=== PATIENT | male | born 1975 | race Caucasian/White ===

== ENCOUNTER 2020-05-18 22:32 | Emergency (ER) | payer MEDICAID, SELFPAY ==
[2020-05-18 22:41] VITALS: BP 113/68; PULSE 67; RESP 18; TEMP 36.6; O2SAT 98; BMI 25.1
--- NOTE | 2020-05-18 23:31 | ED_ITS ---
HPI - Psych General Chief Complaint: Psychiatric Symptoms Stated Complaint: crisis Time Seen by Provider: 05/18/20 23:28 Source: patient Mode of arrival: ambulatory Limitations: no limitations History of Present Illness HPI Narrative: 45 yo with extensive psychiatric history here with SI and very superficial linear abrasions to bilateral forearms complaint: suicidal ideation and feels depressed Onset (ago): unknown Duration: constant History of same: Yes Relieving factors: none Exacerbating factors: none Context: significant life stressor Associated psychiatric symptoms: depression and suicidal ideation Associated symptoms: denies other symptoms Treatments prior to arrival: none If self harm: self-inflicted trauma (very minor superficial abrasions to both wrists) Related Data Allergies Allergy/AdvReac Type Severity Reaction Status Date / Time nicotine [From NICODERM CQ] Allergy Mild SHORTNESS Verified 05/18/20 22:41 OF BREATH ketchup [KETCHUP] Allergy Unknown RASH Verified 05/18/20 22:41 onion [ONION] Allergy Unknown RASH Verified 05/18/20 22:41 tomato [TOMATO] Allergy Unknown RASH Verified 05/18/20 22:41 Review of Systems Review of Systems: Constitutional : No Fever, No Chills ENT/Mouth : No Ear Pain, No Nasal Congestion, No sore throat Eyes: No Eye Pain, No Swelling, No Redness Cardiovascular : No Chest Pain, No SOB Respiratory : No Cough, No Sputum, No Dyspnea Gastrointestinal : No Nausea, No Vomiting, No Diarrhea, No Hematochezia, No Melena Genitourinary : No Dysuria, No Urinary Frequency, No Hematuria Musculoskeletal : No Myalgias Skin : No Skin Lesions, pos abrasions Neuro : No Weakness, No Numbness, No Paresthesias, No Dizziness, No Headache Psych : positive Anxiety, positive Depression, positive SI no HI Heme/Lymph: No Lymphadenopathy Endocrine : No Polyuria, No Polydipsia All other systems reviewed and are negative [facility] Past Medical History Attestation statement: The following information was validated with the patient. Medical History Bipolar 1 disorder Personality disorder Transgender Social History Social History (Updated 05/18/20 @ 23:42 by Kim Medrano DO) Alcohol intake: former Smoking Status: Current every day smoker Smoked in Last 30 Days: Yes Use of substances other than those prescribed or required for medical reasons: Yes Substance Use Type: Crack/Cocaine Substance Use Frequency: Occasionally Advance Directives: No Physical Exam Vital Signs: Vital Signs: Last Vital Signs Temp 98.0 F 05/19/20 00:14 Pulse 70 05/19/20 00:14 Resp 18 05/19/20 00:14 BP 115/70 05/19/20 00:14 Pulse Ox 98 05/19/20 00:14 Body Mass Index 25.1 Appearance: Alert. Oriented X3. No acute distress. Disheveled unkempt Eyes: Pupils equal, round and reactive to light. ENT: Pharynx normal. Neck: Normal inspection. Neck supple. CVS: Normal heart rate and rhythm. Pulses normal. Respiratory: No respiratory distress. Breath sounds normal. Abdomen: Soft and nontender. Skin: Skin warm and dry. Normal skin color. Normal skin turgor. bilateral anterior wrists very superficial linear abrasions noted Extremities: No lower extremity edema. No calf ttp Neuro: Oriented X 3. No motor deficit. No sensory deficit. CN 2 - 12 intact Psych: withdrawn, flat affect, reports SI. Course Course Course Narrative: cleared by N MDM - Psych MDM Narrative Medical decision making narrative: 45 yo patient with significant mental illness here with SI and very mild abrasions - at this time will obtain labs, N consult, patient is currently calm and cooperative Lab Data Result diagrams: 05/18/20 23:54 05/18/20 23:54 Labs: Lab Results 05/18/20 05/18/20 05/18/20 Range/Units 23:46 23:54 23:54 WBC 16.6 H (4.8-10.8) X10*3/uL RBC 4.86 (4.60-5.80) X10*6/uL Hgb 14.8 (14.0-18.0) g/dl Hct 43.1 (42-52) % MCV 88.7 (80-98) fL MCH 30.5 (27.0-33.0) pg MCHC 34.3 (31.0-36.0) g/dl RDW 12.5 (11.0-16.0) % Plt Count 263 (160-400) X10*3/uL MPV 10.2 (9.4-12.4) fL Immature Gran % (Auto) 0.4 (0.0-0.4) % Neut % (Auto) 65.7 (45-73) % Lymph % (Auto) 23.4 (20-40) % [place] % (Auto) 9.2 (2-11) % Eos % (Auto) 0.8 (0-4) % Baso % (Auto) 0.5 (0-2) % Lymph # (Auto) 3.9 (1.2-4.9) X10*3/uL [place] # (Auto) 1.5 H (0.1-1.2) X10*3/uL Eos # (Auto) 0.1 (0.0-0.4) X10*3/uL Baso # (Auto) 0.1 (0.0-0.2) X10*3/uL Abs Immat Gran (auto) 0.07 H (0.00-0.03) X10*3/uL Absolute Neuts (auto) 10.9 H (2.0-8.3) X10*3/uL Absolute Nucleated RBC 0.000 (0.0-0.012) X10*3/uL Nucleated RBC % (auto) 0.0 (0.0-0.2) /100WBC Smear Tech's Comments VERIFIED Sodium (135-145) mmol/L Potassium (3.3-5.1) mmol/L Chloride (96-108) mmol/L Carbon Dioxide (22-29) mmol/L Anion Gap (12-20) BUN (9-16) mg/dL Creatinine (0.5-1.4) mg/dL Estim Creat Clear Calc Estimated GFR Random Glucose (60-115) mg/dL Calcium (8.4-10.2) mg/dL Total Bilirubin (0.0-1.0) mg/dL Direct Bilirubin (0.0-0.5) mg/dL AST (5-37) U/L ALT (0-40) U/L Alkaline Phosphatase (39-117) U/L Total Protein (6.5-8.0) g/dL Albumin (3.5-5.0) g/dL Urine Opiates Screen Not Detected (Not Detect) Ur Barbiturates Screen Not Detected (Not Detect) Ur Phencyclidine Scrn Not Detected (Not Detect) Ur Amphetamines Screen Not Detected (Not Detect) U Benzodiazepines Scrn Not Detected (Not Detect) [place] < 0.10 L (0.60-1.20) mmol/L Urine Cocaine Screen POSITIVE H (Not Detect) U Marijuana (THC) Screen Not Detected (Not Detect) Ethyl Alcohol mg/dL COVID-19 ([facility]) (Negative) COVID-19 Clin Com 05/18/20 05/18/20 05/18/20 Range/Units 23:54 23:54 23:54 WBC (4.8-10.8) X10*3/uL RBC (4.60-5.80) X10*6/uL Hgb (14.0-18.0) g/dl Hct (42-52) % MCV (80-98) fL MCH (27.0-33.0) pg MCHC (31.0-36.0) g/dl RDW (11.0-16.0) % Plt Count (160-400) X10*3/uL MPV (9.4-12.4) fL Immature Gran % (Auto) (0.0-0.4) % Neut % (Auto) (45-73) % Lymph % (Auto) (20-40) % [place] % (Auto) (2-11) % Eos % (Auto) (0-4) % Baso % (Auto) (0-2) % Lymph # (Auto) (1.2-4.9) X10*3/uL [place] # (Auto) (0.1-1.2) X10*3/uL Eos # (Auto) (0.0-0.4) X10*3/uL Baso # (Auto) (0.0-0.2) X10*3/uL Abs Immat Gran (auto) (0.00-0.03) X10*3/uL Absolute Neuts (auto) (2.0-8.3) X10*3/uL Absolute Nucleated RBC (0.0-0.012) X10*3/uL Nucleated RBC % (auto) (0.0-0.2) /100WBC Smear Tech's Comments Sodium 138 (135-145) mmol/L Potassium 3.7 (3.3-5.1) mmol/L Chloride 106 (96-108) mmol/L Carbon Dioxide 23 (22-29) mmol/L Anion Gap 13 (12-20) BUN 26 H (9-16) mg/dL Creatinine 0.82 (0.5-1.4) mg/dL Estim Creat Clear Calc 122.4 Estimated GFR > 60 Random Glucose 90 (60-115) mg/dL Calcium 9.0 (8.4-10.2) mg/dL Total Bilirubin 0.9 (0.0-1.0) mg/dL Direct Bilirubin 0.3 (0.0-0.5) mg/dL AST 20 (5-37) U/L ALT 17 (0-40) U/L Alkaline Phosphatase 77 (39-117) U/L Total Protein 6.9 (6.5-8.0) g/dL Albumin 4.2 (3.5-5.0) g/dL Urine Opiates Screen (Not Detect) Ur Barbiturates Screen (Not Detect) Ur Phencyclidine Scrn (Not Detect) Ur Amphetamines Screen (Not Detect) U Benzodiazepines Scrn (Not Detect) [place] (0.60-1.20) mmol/L Urine Cocaine Screen (Not Detect) U Marijuana (THC) Screen (Not Detect) Ethyl Alcohol < 10 mg/dL COVID-19 ([facility]) Negative (Negative) COVID-19 Clin Com See Note Discharge Plan Discharge Clinical Impression: Bipolar disorder Qualifiers: Active/Remission status: currently active Current bipolar episode type: depressed Current episode severity: moderate Qualified Code(s): F31.32 - Bipolar disorder, current episode depressed, moderate Patient Disposition: Home, Self-Care Instructions: Bipolar Disorder (ED) Additional Instructions: return to ED for any worsening symptoms or concerns
[2020-05-19 00:03] LABS: Basophils Absolute Auto 0.1 X10*3/uL (0.0-0.2); Basophils Percent Auto 0.5 % (0-2); Eosinophils Absolute Auto 0.1 X10*3/uL (0.0-0.4); Eosinophils Percent Auto 0.8 % (0-4); Hematocrit 43.1 % (42-52); Hemoglobin 14.8 g/dl (14.0-18.0); Imm Gran Abs Auto 0.07 X10*3/uL (0.00-0.03); Imm Gran Pct Auto 0.4 % (0.0-0.4); Lymphocytes Absolute Auto 3.9 X10*3/uL (1.2-4.9); Lymphocytes Percent Auto 23.4 % (20-40); MANUAL DIFF FLAG SCAN; Mean Corpuscular HGB Conc 34.3 g/dl (31.0-36.0); Mean Corpuscular Hemoglobin 30.5 pg (27.0-33.0); Mean Corpuscular Volume 88.7 fL (80-98); Mean Platelet Volume 10.2 fL (9.4-12.4); Monocytes Absolute Auto 1.5 X10*3/uL (0.1-1.2); Monocytes Percent Auto 9.2 % (2-11); Neutrophils Absolute Auto 10.9 X10*3/uL (2.0-8.3); Neutrophils Percent Auto 65.7 % (45-73); Platelet Count 263 X10*3/uL (160-400); Red Blood Count 4.86 X10*6/uL (4.60-5.80); Red Cell Distribution Width 12.5 % (11.0-16.0); SCAN SMEAR FLAG 1; White Blood Count 16.6 X10*3/uL (4.8-10.8)
[2020-05-19 00:14] VITALS: BP 115/70; PULSE 70; RESP 18; TEMP 36.7; O2SAT 98
[2020-05-19 00:29] LABS: COVID-19 Test Negative (Negative); IDNOW Serial# 9DD0AD1C
[2020-05-19 00:31] LABS: SLIDE REVIEW VERIFIED
[2020-05-19 00:37] LABS: Ethanol < 10 mg/dL
--- NOTE | 2020-05-19 00:39 | PC.NURSE ---
[facility] faxed and called. [facility] stated that they were not sure when the PT could be seen.
[2020-05-19 00:40] LABS: Amphetamine Screen Urine Not Detected (Not Detect); Barbiturates, Urine Not Detected (Not Detect); Benzodiazepines Screen Urine Not Detected (Not Detect); Cannabinoid Screen Urine Not Detected (Not Detect); Cocaine Screen Urine POSITIVE (Not Detect); Opiate Screen Urine Not Detected (Not Detect); Phencyclidine Screen Urine Not Detected (Not Detect)
[2020-05-19 00:40] LABS: Alanine Aminotransferase 17 U/L (0-40); Albumin Level 4.2 g/dL (3.5-5.0); Alkaline Phosphatase 77 U/L (39-117); Anion Gap 13 (12-20); Aspartate Amino Transferase 20 U/L (5-37); Bilirubin Direct 0.3 mg/dL (0.0-0.5); Bilirubin Total 0.9 mg/dL (0.0-1.0); Blood Urea Nitrogen 26 mg/dL (9-16); Carbon Dioxide 23 mmol/L (22-29); Chloride 106 mmol/L (96-108); Creatinine Clr Calc Pharmacy 122.4; Estimated Glomerular Filt Rate > 60; Glucose Random 90 mg/dL (60-115); Potassium 3.7 mmol/L (3.3-5.1); Sodium 138 mmol/L (135-145); Total Protein 6.9 g/dL (6.5-8.0)
[2020-05-19 00:45] LABS: Lithium < 0.10 mmol/L (0.60-1.20)
--- NOTE | 2020-05-19 01:50 | PC.NURSE ---
This nurse called [facility] pharmacy to complete PT med rec. Pharmacist at [facility] stated that this PT does not have any active medications at this time.
== END 2020-05-19 06:20 | disposition home or self-care (01) ==
PROVIDERS: Emergency Provider Emergency Medicine
DX: F31.32 Bipolar disorder, current episode depressed, moderate (principal); R45.851 Suicidal ideations; S60.812A Abrasion of left wrist, initial encounter; S60.811A Abrasion of right wrist, initial encounter; X78.9XXA Intentional self-harm by unspecified sharp object, initial encounter; Y93.9 Activity, unspecified; Y92.9 Unspecified place or not applicable; Y99.9 Unspecified external cause status; Z20.822 Contact with and (suspected) exposure to COVID-19; Z87.891 Personal history of nicotine dependence
CPT/HCPCS: 36415; 80048; 80076; 80178; 80307; 80320; 85025; 87635; 99284

== ENCOUNTER 2020-06-11 22:37 | Emergency (ER) | payer MEDICAID, SELFPAY ==
--- NOTE | 2020-06-11 23:29 | ED.PSYCH ---
HPI - Psych General Chief Complaint: Psychiatric Symptoms Stated Complaint: si Time Seen by Provider: 06/11/20 23:29 Source: patient Mode of arrival: ambulatory Limitations: no limitations History of Present Illness HPI Narrative: Patient history of depression suicidal ideation been to multiple hospitals multiple times for similar reasons been drinking alcohol says that is having decreased depression trying to abrade his right forearm. No hallucinations patient compliant with medications has a therapist Related Data Allergies Allergy/AdvReac Type Severity Reaction Status Date / Time nicotine [From NICODERM CQ] Allergy Mild SHORTNESS Verified 05/18/20 22:41 OF BREATH ketchup [KETCHUP] Allergy Unknown RASH Verified 05/18/20 22:41 onion [ONION] Allergy Unknown RASH Verified 05/18/20 22:41 tomato [TOMATO] Allergy Unknown RASH Verified 05/18/20 22:41 Review of Systems Review of Systems: Constitutional : No Fever, No Chills ENT/Mouth : No Ear Pain, No Nasal Congestion, No sore throat Eyes: No Eye Pain, No Swelling, No Redness Cardiovascular : No Chest Pain, No SOB Respiratory : No Cough, No Sputum, No Dyspnea Gastrointestinal : No Nausea, No Vomiting, No Diarrhea, No Hematochezia, No Melena Genitourinary : No Dysuria, No Urinary Frequency, No Hematuria Musculoskeletal : No Myalgias Skin : No Skin Lesions, No rash Neuro : No Weakness, No Numbness, No Paresthesias, No Dizziness, No Headache Psych : Negative Anxiety, positive Depression, positive SI Heme/Lymph: No Lymphadenopathy Endocrine : No Polyuria, No Polydipsia PMFSH Past Medical History Medical History Bipolar 1 disorder Personality disorder Transgender Social History Social History Alcohol intake: former Smoking Status: Current every day smoker Substance Use Type: Crack/Cocaine Advance Directives: No Advance Directives Information Provided: No Physical Exam Vital Signs: Vital Signs: Last Vital Signs Temp 97.8 F 06/11/20 23:36 Pulse 49 L 06/11/20 23:36 Resp 17 06/11/20 23:36 BP 107/69 06/11/20 23:36 Pulse Ox 98 06/11/20 23:36 Body Mass Index 25.2 Appearance: Alert. Oriented X3. No acute distress. Eyes: Pupils equal, round and reactive to light. ENT: Pharynx normal. Neck: Normal inspection. Neck supple. CVS: Normal heart rate and rhythm. Pulses normal. Respiratory: No respiratory distress. Breath sounds normal. Abdomen: Soft and nontender. Bowel sounds are present, no mass palpable, no CVA tenderness Skin: Skin warm and dry. Normal skin color. Normal skin turgor. Extremities: No lower extremity edema. Psych: Depressed with suicidal feeling no homicidal ideation no hallucination or delusion Neuro: Oriented X 3. No motor deficit. No sensory deficit. MDM - Psych MDM Narrative Medical decision making narrative: Patient with depression multiple hospital visits will get a case management involved Differential Diagnosis Differential diagnosis: Likely suicidal ideation and depression Medical Records Attestation: I reviewed the patient's medical records. Lab Data Labs: Lab Results 06/11/20 06/11/20 Range/Units 23:40 23:44 Urine Opiates Screen Not Detected (Not Detect) Ur Barbiturates Screen Not Detected (Not Detect) Ur Phencyclidine Scrn Not Detected (Not Detect) Ur Amphetamines Screen Not Detected (Not Detect) U Benzodiazepines Scrn Not Detected (Not Detect) Urine Cocaine Screen POSITIVE H (Not Detect) U Marijuana (THC) Screen Not Detected (Not Detect) COVID-19 ([facility]) Negative (Negative) COVID-19 Clin Com See Note
[2020-06-11 23:30] VITALS: BP 107/69; PULSE 49; RESP 17; TEMP 36.6; O2SAT 98; BMI 25.2
[2020-06-11 23:36] VITALS: BP 107/69; PULSE 49; RESP 17; TEMP 36.6; O2SAT 98
--- NOTE | 2020-06-11 23:51 | PC.NURSE ---
Patient just got seen by provider, no new order, will continue to monitor.
[2020-06-12 00:10] LABS: COVID-19 Test Negative (Negative); IDNOW Serial# 9DD0AD1C
[2020-06-12 00:11] LABS: Amphetamine Screen Urine Not Detected (Not Detect); Barbiturates, Urine Not Detected (Not Detect); Benzodiazepines Screen Urine Not Detected (Not Detect); Cannabinoid Screen Urine Not Detected (Not Detect); Cocaine Screen Urine POSITIVE (Not Detect); Opiate Screen Urine Not Detected (Not Detect); Phencyclidine Screen Urine Not Detected (Not Detect)
--- NOTE | 2020-06-12 07:50 | PC.NURSE ---
Report received from EMERITA Mejia. Pt resting, resp unlabored.
[2020-06-12 08:00] VITALS: RESP 16
--- NOTE | 2020-06-12 09:36 | PC.NURSE ---
[facility] called to confirm awareness that pt is here. [facility] unable to state when clinician might be able to assess.
[2020-06-12 10:00] VITALS: RESP 16
--- NOTE | 2020-06-12 10:48 | PC.NURSE ---
Pt resting, resp unlabored.
--- NOTE | 2020-06-12 11:15 | PC.NURSE ---
Report received from EMERITA Shaw. Pt asleep at current. No signs of distress. Respirations even and unlabored. Waiting to be seen by N.
--- NOTE | 2020-06-12 11:43 | PC.NURSE ---
CARE team meeting with pt at bedside
--- NOTE | 2020-06-12 11:59 | PC.NURSE ---
Pt reported to this RN and CARE team (Lia) that they have 4 multiple personalities, that those personalities will try to get pt discharged. Pt requesting not to be discharged no matter what.
--- NOTE | 2020-06-12 12:11 | MHC.CARE ---
CARE team saw pt for evaluation after [facility] reported that there would be no staff to arrive to [facility] until this evening . Pt was seen by CARE team and asking for [facility]. T/w placed a call to [facility] in [place] however no beds currently. T/w placed a call to [facility] in [place] and the Director will review and call t/w back per Cassandra at Crisis. T/w spoke w [facility] at 12n to confirm that the Portable Grinding Machine Operator (Filemon) will be alerting [facility] that CARE team took this assessment. Filemon agreed to alert the insurance.
[2020-06-12 12:13] LABS: MANUAL DIFF FLAG NO
[2020-06-12 12:15] LABS: Basophils Absolute Auto 0.1 X10*3/uL (0.0-0.2); Eosinophils Absolute Auto 0.6 X10*3/uL (0.0-0.4); Eosinophils Percent Auto 6.8 % (0-4); Hematocrit 39.6 % (42-52); Hemoglobin 13.6 g/dl (14.0-18.0); Imm Gran Abs Auto 0.01 X10*3/uL (0.00-0.03); Imm Gran Pct Auto 0.1 % (0.0-0.4); Lymphocytes Absolute Auto 2.9 X10*3/uL (1.2-4.9); Mean Corpuscular HGB Conc 34.3 g/dl (31.0-36.0); Mean Corpuscular Volume 90.2 fL (80-98); Mean Platelet Volume 10.3 fL (9.4-12.4); Monocytes Absolute Auto 0.7 X10*3/uL (0.1-1.2); Monocytes Percent Auto 8.8 % (2-11); Neutrophils Absolute Auto 4.1 X10*3/uL (2.0-8.3); Neutrophils Percent Auto 48.3 % (45-73); Platelet Count 217 X10*3/uL (160-400); Red Blood Count 4.39 X10*6/uL (4.60-5.80); Red Cell Distribution Width 12.3 % (11.0-16.0); White Blood Count 8.4 X10*3/uL (4.8-10.8)
--- NOTE | 2020-06-12 12:16 | MHC.CARE ---
update: call from CATH LABORATORY TECHNICIAN a bed in [place] may be available later today however there are multiple crisis pts locally for them but they will call CARE back when they know.
[2020-06-12 12:37] LABS: Lithium < 0.10 mmol/L (0.60-1.20)
[2020-06-12 12:44] LABS: Alanine Aminotransferase 17 U/L (0-40); Albumin Level 3.5 g/dL (3.5-5.0); Alkaline Phosphatase 69 U/L (39-117); Anion Gap 10 (12-20); Aspartate Amino Transferase 22 U/L (5-37); Bilirubin Direct 0.4 mg/dL (0.0-0.5); Blood Urea Nitrogen 17 mg/dL (9-16); Calcium 8.5 mg/dL (8.4-10.2); Carbon Dioxide 28 mmol/L (22-29); Chloride 108 mmol/L (96-108); Creatinine Clr Calc Pharmacy 120.9; Estimated Glomerular Filt Rate > 60; Glucose Random 90 mg/dL (60-115); Potassium 3.7 mmol/L (3.3-5.1); Sodium 142 mmol/L (135-145); Total Protein 5.6 g/dL (6.5-8.0)
[2020-06-12 13:01] VITALS: BP 108/59; PULSE 55
[2020-06-12 13:02] VITALS: BP 108/59; PULSE 55
[2020-06-12] MEDS: Lithium Carbonate 300 MG CAPSULE PO ×2 (13:04→20:10)
--- NOTE | 2020-06-12 13:07 | PC.NURSE ---
Pt resting in bed at current. No complaints at this time. Calm and cooperative.
[2020-06-12 16:26] VITALS: BP 123/77; PULSE 43; RESP 20; TEMP 36.9; O2SAT 99
--- NOTE | 2020-06-12 16:37 | PC.NURSE ---
Pt watching TV in the common area at current. No complaints at this time. Calm and cooperative.
--- NOTE | 2020-06-12 20:00 | PC.NURSE ---
Patient constantly in out of her room with multiple needs, currently in milieu watching TV, no distress reported, will continue to monitor
[2020-06-12 20:10] VITALS: BP 116/68; PULSE 52
[2020-06-12] MEDS: Spironolactone 25 MG TABLET 100 MG PO (20:10)
[2020-06-12] MEDS: Prazosin HCL 1 MG CAPSULE 2 MG PO (20:10)
[2020-06-13] VITALS (8 sets, daily range): BP systolic 109–129; BP diastolic 56–73; PULSE 50–73; RESP 18–20; TEMP 36.6–37.2; O2SAT 96–98
--- NOTE | 2020-06-13 07:11 | PC.NURSE ---
Report received from EMERITA Mejia. Pt resting, resp unlabored.
[2020-06-13] MEDS: Spironolactone 25 MG TABLET 100 MG PO ×2 (09:20→20:26)
--- NOTE | 2020-06-13 09:21 | MHC.CARE ---
CARE team commenced bedsearch for pt. Limited beds within the state, only 2 locations willing to look at clinical. Luca was faxed clinical and t[facility] and they were unsure if they were able to make a private room for pt and will call t/w back.
[2020-06-13] MEDS: Prazosin HCL 1 MG CAPSULE 2 MG PO ×2 (09:27→20:27)
[2020-06-13] MEDS: Lithium Carbonate 300 MG CAPSULE PO ×2 (09:28→20:27)
--- NOTE | 2020-06-13 09:33 | PC.NURSE ---
Pt awoken for medications. Reviewed vital signs w/ A kayler- may give AM meds as ordered. Pt affect even, states he did not sleep well but no other concerns reported.
--- NOTE | 2020-06-13 10:33 | PC.NURSE ---
Pt resting, resp unlabored
--- NOTE | 2020-06-13 10:37 | PC.NURSE ---
Pt resting, resp unlabored
--- NOTE | 2020-06-13 12:33 | PC.NURSE ---
Pt awake, reports some restlessness, attempted to call respite to determine whether they had openings. CARE team in to evaluate and update.
--- NOTE | 2020-06-13 14:15 | MHC.CARE ---
t/w placed a call to [facility] insurance in order to provide updated clinical for the mental status update as required but the reviewers are busy and will have to call back for this sometime later today. CARE team direct line provided and CARE staff can refer to MSU on file in medical record for this call.
--- NOTE | 2020-06-13 14:24 | PC.NURSE ---
Pt awake, alert, pleasant. Engaging in conversation w/ staff occasionally. Affect even.
--- NOTE | 2020-06-13 17:05 | PC.NURSE ---
Pt awake, alert, restless, watching television, frequent requests for snacks and drinks.
--- NOTE | 2020-06-13 18:45 | PC.NURSE ---
Pt awake, showered, no concerns reported.
--- NOTE | 2020-06-13 19:13 | PC.NURSE ---
Patient in milieu watching TV, calm and quiet, mood pleasant, denied any distress at this time, will continue to monitor.
--- NOTE | 2020-06-13 21:20 | PC.NURSE ---
Patient in milieu watching movie, calm and quiet, compliant with HS PO medication, denied distress, will continue to monitor.
[2020-06-14] VITALS (8 sets, daily range): BP systolic 90–125; BP diastolic 53–75; PULSE 48–58; RESP 16–18; TEMP 36.3–37.2; O2SAT 97–99
--- NOTE | 2020-06-14 06:58 | PC.NURSE ---
Report recieved. PT currently resting, calm and cooperative. Pt is care team bedsearch.
[2020-06-14] MEDS: Spironolactone 25 MG TABLET 100 MG PO ×2 (10:49→20:53)
[2020-06-14] MEDS: Lithium Carbonate 300 MG CAPSULE PO ×2 (10:49→20:53)
[2020-06-14] MEDS: Prazosin HCL 1 MG CAPSULE 2 MG PO ×2 (10:56→20:54)
[2020-06-14] MEDS: Acetaminophen 325 MG TABLET 650 MG PO ×2 (12:13→23:24)
--- NOTE | 2020-06-14 14:47 | MHC.CARE ---
Faxed referral to [facility]. Followed up with a phone call, [facility] stated that they could not accept the pt today and suggested we call back in the morning. Staff stated that since the pt is outside of the [facility] area she will not be prioritized for that respite.
--- NOTE | 2020-06-14 15:02 | MHC.CARE ---
Called [facility] for placement for pt. message left with their intake office.
--- NOTE | 2020-06-14 18:53 | MHC.CARE ---
Evonne/Sully provided verbal MSU to isha on behalf of Jethro. Blas Tripathi authorized [facility].
--- NOTE | 2020-06-14 20:23 | PC.NURSE ---
pt reported not getting IM shot of Estrdol because they lost it. medication was not listed on belongings sheet. pt belongings checked. no evidence of medication. per patient she last received estrindol 5mg IM by [facility]. This advertising copywriter made a call to [facility], spoke to ashley. Ashley stated that this med was not administered or recently filled at their facilty but was a self reported med to their staff. Per patient, the rx was filled at [facility]. This advertising copywriter placed a call at 2019 to [facility] for medication verification. Awaiting call back at this time.
--- NOTE | 2020-06-14 20:36 | PC.NURSE ---
per planned parent merary ortez, no rx has been filled by that office since 02/26/2018. Dose verified 5mg/1ml IM q 1 week or /every other week.
[2020-06-14] MEDS: QUEtiapine Fumarate 25 MG TABLET PO (23:27)
[2020-06-15 06:00] VITALS: BP 106/56; PULSE 49; RESP 16; TEMP 36.5; O2SAT 96
--- NOTE | 2020-06-15 06:31 | PC.NURSE ---
pt requests to leave. day shift to notify care
--- NOTE | 2020-06-15 07:14 | PC.NURSE ---
Report received. Pt currently sleeping, respirations even and unlabored, in no apparent distress. PT is care team bedsearch.
--- NOTE | 2020-06-15 09:28 | PC.NURSE ---
care team at bedside
[2020-06-15 09:44] VITALS: BP 111/69; PULSE 68; RESP 18; TEMP 36.4; O2SAT 98
[2020-06-15] MEDS: Spironolactone 25 MG TABLET 100 MG PO (09:44)
[2020-06-15] MEDS: Lithium Carbonate 300 MG CAPSULE PO (09:45)
[2020-06-15] MEDS: Prazosin HCL 1 MG CAPSULE 2 MG PO (09:45)
[2020-06-15] MEDS: Acetaminophen 325 MG TABLET 650 MG PO (11:27)
--- NOTE | 2020-06-15 11:44 | MHC.CARE ---
CARE team met with pt this morning as a requested early follow up to the ongoing bedsearch. Pt stated to ED and CARE team last night that she was feeling her depression and suicidal ideation has resolved. Pt also stated that she is no longer hearing the voices of her alters. Pt explained to t/w and the ED provider that the difference in her alters and her current presentation is her attitude and how I feel . Pt stated she feels safe to leave and decided that she wanted to go stay with her grandmother in [place]. Pt wanted to first go to the Living Room in [place] before she decided her plan. Pt denied feeling depressive sxs, denied anxiety sxs, and denied thoughts of suicide. Pt denied urges to cut herself or self harm. Pt presented as calm, cheerful and cooperative while awaiting the plan. Pt reported that she spoke w [facility] and they are full. T/w called [facility] and they are only taking patients from local area to them . T/w contacted [facility] intake to reschedule pts therapy appt with her therapist Prashanth Joseph for 07/27/20 10am. Pt is also on the [facility] waitlist for a prescriber. Pt stated she has a few weeks of medications left and will coordinate with [facility] on this.
--- NOTE | 2020-06-15 11:52 | PC.NURSE ---
PT d/c to the living room. Denies SI, reports feeling much better. PT calm states she is going to the living room.
== END 2020-06-15 11:53 ==
PROVIDERS: Physician Assistant; Emergency Provider Internal Medicine
DX: R45.851 Suicidal ideations (principal); F32.9 Major depressive disorder, single episode, unspecified; F14.90 Cocaine use, unspecified, uncomplicated; Z20.822 Contact with and (suspected) exposure to COVID-19; F31.9 Bipolar disorder, unspecified; F60.9 Personality disorder, unspecified; F64.0 Transsexualism; F17.200 Nicotine dependence, unspecified, uncomplicated
CPT/HCPCS: 36415; 80048; 80076; 80178; 80307; 83735; 85025; 87635; 99285

== ENCOUNTER 2020-09-01 06:48 | Emergency (ER) | payer MEDICAID, SELFPAY ==
--- NOTE | 2020-09-01 07:19 | ED_ITS ---
HPI - Psych General Chief Complaint: Psychiatric Symptoms <Kim Medrano DO - Last Filed: 09/01/20 16:33> Stated Complaint: SI - crisis <Kim Medrano DO - Last Filed: 09/01/20 16:33> Time Seen by Provider: 09/01/20 07:17 <Kim Medrano DO - Last Filed: 09/01/20 16:33> Source: patient <Kim Medrano DO - Last Filed: 09/01/20 16:33> Mode of arrival: ambulatory <Kim Medrano DO - Last Filed: 09/01/20 16:33> Limitations: no limitations <Kim Medrano DO - Last Filed: 09/01/20 16:33> History of Present Illness MD complaint: suicidal ideation and feels depressed <Kim Medrano DO - Last Filed: 09/01/20 16:33> Onset (ago): day(s) (1) <Kim Medrano DO - Last Filed: 09/01/20 16:33> Duration: constant <Kim Medrano DO - Last Filed: 09/01/20 16:33> History of same: Yes <Kim Medrano DO - Last Filed: 09/01/20 16:33> Relieving factors: none <Kim Medrano DO - Last Filed: 09/01/20 16:33> Exacerbating factors: none <Kim Medrano DO - Last Filed: 09/01/20 16:33> Context: significant life stressor <Kim Medrano DO - Last Filed: 09/01/20 16:33> Associated psychiatric symptoms: depression and suicidal ideation <Kim Medrano DO - Last Filed: 09/01/20 16:33> Associated symptoms: denies other symptoms <Kim Medrano DO - Last Filed: 09/01/20 16:33> Treatments prior to arrival: none <Kim Medrano DO - Last Filed: 09/01/20 16:33> If self harm: self-inflicted trauma (abrasions to left forearm) <Kim Medrano DO - Last Filed: 09/01/20 16:33> Related Data Home Medications: Home Medications Medication Instructions Recorded Confirmed lithium carbonate 1 tab PO BID 06/12/20 06/12/20 prazosin 2 cap PO BID 06/12/20 06/12/20 quetiapine 1 tab PO BEDTIME PRN 06/12/20 06/12/20 spironolactone 1 tab PO BID 06/12/20 06/12/20 <Kim Medrano DO - Last Filed: 09/01/20 16:33> Allergies/Adverse Reactions: Allergies Allergy/AdvReac Type Severity Reaction Status Date / Time nicotine [From NICODERM CQ] Allergy Mild SHORTNESS Verified 05/18/20 22:41 OF BREATH ketchup [KETCHUP] Allergy Unknown RASH Verified 05/18/20 22:41 onion [ONION] Allergy Unknown RASH Verified 05/18/20 22:41 tomato [TOMATO] Allergy Unknown RASH Verified 05/18/20 22:41 <Kim Medrano DO - Last Filed: 09/01/20 16:33> Review of Systems Review of Systems: Constitutional : No Fever, No Chills ENT/Mouth : No Ear Pain, No Nasal Congestion, No sore throat Eyes: No Eye Pain, No Swelling, No Redness Cardiovascular : No Chest Pain, No SOB Respiratory : No Cough, No Sputum, No Dyspnea Gastrointestinal : No Nausea, No Vomiting, No Diarrhea, No Hematochezia, No Melena Genitourinary : No Dysuria, No Urinary Frequency, No Hematuria Musculoskeletal : No Myalgias Skin : No Skin Lesions, No rash, pos abrasions Neuro : No Weakness, No Numbness, No Paresthesias, No Dizziness, No Headache Psych : positive Anxiety, positive Depression, positive SI no HI Heme/Lymph: No Lymphadenopathy Endocrine : No Polyuria, No Polydipsia All other systems reviewed and are negative <Kim Medrano DO - Last Filed: 09/01/20 16:33> PMFSH Past Medical History Attestation statement: The following information was validated with the patient. <Kim Medrano DO - Last Filed: 09/01/20 16:33> Medical History: Medical History Bipolar 1 disorder Personality disorder Transgender <Kim Medrano DO - Last Filed: 09/01/20 16:33> Social History Social History: Social History Alcohol intake: current Alcohol intake frequency: 0-2 drinks per day Alcohol type: hard liquor Patient Tobacco Use Status: Never used Tobacco Smoked in Last 30 Days: No Substance Use Type: Crack/Cocaine Substance Use Frequency: Daily Last Used Substance: Days (ago) Any prior treatment program specific to substance use: No Advance Directives: Yes Advance Directives Information Provided: Yes Advance Directives on File: No <Kim Medrano DO - Last Filed: 09/01/20 16:33> Physical Exam Vital Signs: Vital Signs: Last Vital Signs Temp 97.8 F 09/01/20 07:58 Pulse 65 09/01/20 07:58 Resp 16 09/01/20 07:58 BP 117/70 09/01/20 07:58 Pulse Ox 98 09/01/20 07:58 Body Mass Index 30.2 <Kim Medrano DO - Last Filed: 09/01/20 16:33> Vital Signs: Last Vital Signs Temp 97.8 F 09/01/20 07:58 Pulse 65 09/01/20 07:58 Resp 16 09/01/20 07:58 BP 117/70 09/01/20 07:58 Pulse Ox 98 09/01/20 07:58 Body Mass Index 30.2 <ELSIE Sabillon - Last Filed: 09/01/20 13:43> Appearance: Alert. Oriented X3. No acute distress. Eyes: Pupils equal, round and reactive to light. ENT: Pharynx normal. Neck: Normal inspection. Neck supple. CVS: Normal heart rate and rhythm. Pulses normal. Respiratory: No respiratory distress. Breath sounds normal. Abdomen: Soft and nontender. Skin: Skin warm and dry. Normal skin color. Normal skin turgor. left forearm superficial linear abrasions Extremities: No lower extremity edema. No calf ttp Neuro: Oriented X 3. No motor deficit. No sensory deficit. Psych: flat affect, pos SI, no HI <Kim Medrano DO - Last Filed: 09/01/20 16:33> Course Course Course Narrative: -09/01/20 5562--physician observation initiated. Vital signs are stable. Patient is pending evaluation by [facility]/Care team, no complaints overnight <ELSIE Sabillon - Last Filed: 09/01/20 13:43> MDM - Psych MDM Narrative Medical decision making narrative: 45 yo female well known to ED with hx of bipolar and chronic SI - at this time will obtain labs, [facility] consult, dispo per results and [facility] input <Kim Jerry herlinda, DO - Last Filed: 09/01/20 16:33> Lab Data Result diagrams: : 09/01/20 08:15 09/01/20 08:15 <Kim Marcela DO - Last Filed: 09/01/20 16:33> Labs: Lab Results 09/01/20 09/01/20 09/01/20 Range/Units 08:15 08:15 08:15 WBC 10.1 (4.8-10.8) X10*3/uL RBC 4.89 (4.60-5.80) X10*6/uL Hgb 15.0 (14.0-18.0) g/dl Hct 44.6 (42-52) % MCV 91.2 (80-98) fL MCH 30.7 (27.0-33.0) pg MCHC 33.6 (31.0-36.0) g/dl RDW 12.2 (11.0-16.0) % Plt Count 218 (160-400) X10*3/uL MPV 10.5 (9.4-12.4) fL Immature Gran % (Auto) 0.2 (0.0-0.4) % Neut % (Auto) 53.3 (45-73) % Lymph % (Auto) 30.2 (20-40) % [place] % (Auto) 10.9 (2-11) % Eos % (Auto) 4.5 H (0-4) % Baso % (Auto) 0.9 (0-2) % Lymph # (Auto) 3.1 (1.2-4.9) X10*3/uL [place] # (Auto) 1.1 (0.1-1.2) X10*3/uL Eos # (Auto) 0.5 H (0.0-0.4) X10*3/uL Baso # (Auto) 0.1 (0.0-0.2) X10*3/uL Abs Immat Gran (auto) 0.02 (0.00-0.03) X10*3/uL Absolute Neuts (auto) 5.4 (2.0-8.3) X10*3/uL Absolute Nucleated RBC 0.000 (0.0-0.012) X10*3/uL Nucleated RBC % (auto) 0.0 (0.0-0.2) /100WBC Sodium 136 (135-145) mmol/L Potassium 3.7 (3.3-5.1) mmol/L Chloride 101 (96-108) mmol/L Carbon Dioxide 29 (22-29) mmol/L Anion Gap 10 L (12-20) BUN 25 H (9-16) mg/dL Creatinine 0.92 (0.5-1.4) mg/dL Estim Creat Clear Calc 129.7 Estimated GFR > 60 Random Glucose 115 (60-115) mg/dL Calcium 9.3 D (8.4-10.2) mg/dL Total Bilirubin 1.7 H (0.0-1.0) mg/dL Direct Bilirubin 0.6 H (0.0-0.5) mg/dL AST 28 (5-37) U/L ALT 23 (0-40) U/L Alkaline Phosphatase 79 (39-117) U/L Total Protein 6.6 (6.5-8.0) g/dL Albumin 4.0 (3.5-5.0) g/dL Urine Opiates Screen (Not Detect) Ur Barbiturates Screen (Not Detect) Ur Phencyclidine Scrn (Not Detect) Ur Amphetamines Screen (Not Detect) U Benzodiazepines Scrn (Not Detect) Urine Cocaine Screen (Not Detect) U Marijuana (THC) Screen (Not Detect) Ethyl Alcohol mg/dL COVID-19 ([facility]) Negative (Negative) COVID-19 Clin Com See Note 09/01/20 09/01/20 Range/Units 08:15 08:17 WBC (4.8-10.8) X10*3/uL RBC (4.60-5.80) X10*6/uL Hgb (14.0-18.0) g/dl Hct (42-52) % MCV (80-98) fL MCH (27.0-33.0) pg MCHC (31.0-36.0) g/dl RDW (11.0-16.0) % Plt Count (160-400) X10*3/uL MPV (9.4-12.4) fL Immature Gran % (Auto) (0.0-0.4) % Neut % (Auto) (45-73) % Lymph % (Auto) (20-40) % [place] % (Auto) (2-11) % Eos % (Auto) (0-4) % Baso % (Auto) (0-2) % Lymph # (Auto) (1.2-4.9) X10*3/uL [place] # (Auto) (0.1-1.2) X10*3/uL Eos # (Auto) (0.0-0.4) X10*3/uL Baso # (Auto) (0.0-0.2) X10*3/uL Abs Immat Gran (auto) (0.00-0.03) X10*3/uL Absolute Neuts (auto) (2.0-8.3) X10*3/uL Absolute Nucleated RBC (0.0-0.012) X10*3/uL Nucleated RBC % (auto) (0.0-0.2) /100WBC Sodium (135-145) mmol/L Potassium (3.3-5.1) mmol/L Chloride (96-108) mmol/L Carbon Dioxide (22-29) mmol/L Anion Gap (12-20) BUN (9-16) mg/dL Creatinine (0.5-1.4) mg/dL Estim Creat Clear Calc Estimated GFR Random Glucose (60-115) mg/dL Calcium (8.4-10.2) mg/dL Total Bilirubin (0.0-1.0) mg/dL Direct Bilirubin (0.0-0.5) mg/dL AST (5-37) U/L ALT (0-40) U/L Alkaline Phosphatase (39-117) U/L Total Protein (6.5-8.0) g/dL Albumin (3.5-5.0) g/dL Urine Opiates Screen Not Detected (Not Detect) Ur Barbiturates Screen Not Detected (Not Detect) Ur Phencyclidine Scrn Not Detected (Not Detect) Ur Amphetamines Screen Not Detected (Not Detect) U Benzodiazepines Scrn Not Detected (Not Detect) Urine Cocaine Screen POSITIVE H (Not Detect) U Marijuana (THC) Screen Not Detected (Not Detect) Ethyl Alcohol < 10 mg/dL COVID-19 ([facility]) (Negative) COVID-19 Clin Com <Kim Medrano, DO - Last Filed: 09/01/20 16:33> Lab Results 09/01/20 09/01/20 09/01/20 Range/Units 08:15 08:15 08:15 WBC 10.1 (4.8-10.8) X10*3/uL RBC 4.89 (4.60-5.80) X10*6/uL Hgb 15.0 (14.0-18.0) g/dl Hct 44.6 (42-52) % MCV 91.2 (80-98) fL MCH 30.7 (27.0-33.0) pg MCHC 33.6 (31.0-36.0) g/dl RDW 12.2 (11.0-16.0) % Plt Count 218 (160-400) X10*3/uL MPV 10.5 (9.4-12.4) fL Immature Gran % (Auto) 0.2 (0.0-0.4) % Neut % (Auto) 53.3 (45-73) % Lymph % (Auto) 30.2 (20-40) % [place] % (Auto) 10.9 (2-11) % Eos % (Auto) 4.5 H (0-4) % Baso % (Auto) 0.9 (0-2) % Lymph # (Auto) 3.1 (1.2-4.9) X10*3/uL [place] # (Auto) 1.1 (0.1-1.2) X10*3/uL Eos # (Auto) 0.5 H (0.0-0.4) X10*3/uL Baso # (Auto) 0.1 (0.0-0.2) X10*3/uL Abs Immat Gran (auto) 0.02 (0.00-0.03) X10*3/uL Absolute Neuts (auto) 5.4 (2.0-8.3) X10*3/uL Absolute Nucleated RBC 0.000 (0.0-0.012) X10*3/uL Nucleated RBC % (auto) 0.0 (0.0-0.2) /100WBC Sodium 136 (135-145) mmol/L Potassium 3.7 (3.3-5.1) mmol/L Chloride 101 (96-108) mmol/L Carbon Dioxide 29 (22-29) mmol/L Anion Gap 10 L (12-20) BUN 25 H (9-16) mg/dL Creatinine 0.92 (0.5-1.4) mg/dL Estim Creat Clear Calc 129.7 Estimated GFR > 60 Random Glucose 115 (60-115) mg/dL Calcium 9.3 D (8.4-10.2) mg/dL Total Bilirubin 1.7 H (0.0-1.0) mg/dL Direct Bilirubin 0.6 H (0.0-0.5) mg/dL AST 28 (5-37) U/L ALT 23 (0-40) U/L Alkaline Phosphatase 79 (39-117) U/L Total Protein 6.6 (6.5-8.0) g/dL Albumin 4.0 (3.5-5.0) g/dL Urine Opiates Screen (Not Detect) Ur Barbiturates Screen (Not Detect) Ur Phencyclidine Scrn (Not Detect) Ur Amphetamines Screen (Not Detect) U Benzodiazepines Scrn (Not Detect) Urine Cocaine Screen (Not Detect) U Marijuana (THC) Screen (Not Detect) Ethyl Alcohol mg/dL COVID-19 ([facility]) Negative (Negative) COVID-19 Clin Com See Note 09/01/20 09/01/20 Range/Units 08:15 08:17 WBC (4.8-10.8) X10*3/uL RBC (4.60-5.80) X10*6/uL Hgb (14.0-18.0) g/dl Hct (42-52) % MCV (80-98) fL MCH (27.0-33.0) pg MCHC (31.0-36.0) g/dl RDW (11.0-16.0) % Plt Count (160-400) X10*3/uL MPV (9.4-12.4) fL Immature Gran % (Auto) (0.0-0.4) % Neut % (Auto) (45-73) % Lymph % (Auto) (20-40) % [place] % (Auto) (2-11) % Eos % (Auto) (0-4) % Baso % (Auto) (0-2) % Lymph # (Auto) (1.2-4.9) X10*3/uL [place] # (Auto) (0.1-1.2) X10*3/uL Eos # (Auto) (0.0-0.4) X10*3/uL Baso # (Auto) (0.0-0.2) X10*3/uL Abs Immat Gran (auto) (0.00-0.03) X10*3/uL Absolute Neuts (auto) (2.0-8.3) X10*3/uL Absolute Nucleated RBC (0.0-0.012) X10*3/uL Nucleated RBC % (auto) (0.0-0.2) /100WBC Sodium (135-145) mmol/L Potassium (3.3-5.1) mmol/L Chloride (96-108) mmol/L Carbon Dioxide (22-29) mmol/L Anion Gap (12-20) BUN (9-16) mg/dL Creatinine (0.5-1.4) mg/dL Estim Creat Clear Calc Estimated GFR Random Glucose (60-115) mg/dL Calcium (8.4-10.2) mg/dL Total Bilirubin (0.0-1.0) mg/dL Direct Bilirubin (0.0-0.5) mg/dL AST (5-37) U/L ALT (0-40) U/L Alkaline Phosphatase (39-117) U/L Total Protein (6.5-8.0) g/dL Albumin (3.5-5.0) g/dL Urine Opiates Screen Not Detected (Not Detect) Ur Barbiturates Screen Not Detected (Not Detect) Ur Phencyclidine Scrn Not Detected (Not Detect) Ur Amphetamines Screen Not Detected (Not Detect) U Benzodiazepines Scrn Not Detected (Not Detect) Urine Cocaine Screen POSITIVE H (Not Detect) U Marijuana (THC) Screen Not Detected (Not Detect) Ethyl Alcohol < 10 mg/dL COVID-19 ([facility]) (Negative) COVID-19 Clin Com <ELSIE Sabillon - Last Filed: 09/01/20 13:43> Discharge Plan Discharge Clinical Impression: Depression <Kim Medrano DO - Last Filed: 09/01/20 16:33> Prescriptions: No Action quetiapine 25 mg tablet 1 tab PO BEDTIME PRN (Reason: Anxiety) RF: 0 prazosin 1 mg capsule 2 cap PO BID RF: 0 spironolactone 100 mg tablet 1 tab PO BID RF: 0 lithium carbonate 300 mg tablet 1 tab PO BID RF: 0 <Kim Medrano DO - Last Filed: 09/01/20 16:33>
[2020-09-01 07:43] VITALS: BP 111/68; PULSE 60; RESP 16; TEMP 36.6; O2SAT 98
[2020-09-01 07:58] VITALS: BP 117/70; PULSE 65; RESP 16; TEMP 36.6; O2SAT 98; BMI 30.2
[2020-09-01 08:27] LABS: MANUAL DIFF FLAG NO
[2020-09-01 08:28] LABS: Basophils Absolute Auto 0.1 X10*3/uL (0.0-0.2); Basophils Percent Auto 0.9 % (0-2); Eosinophils Absolute Auto 0.5 X10*3/uL (0.0-0.4); Eosinophils Percent Auto 4.5 % (0-4); Hematocrit 44.6 % (42-52); Imm Gran Abs Auto 0.02 X10*3/uL (0.00-0.03); Imm Gran Pct Auto 0.2 % (0.0-0.4); Lymphocytes Absolute Auto 3.1 X10*3/uL (1.2-4.9); Lymphocytes Percent Auto 30.2 % (20-40); Mean Corpuscular HGB Conc 33.6 g/dl (31.0-36.0); Mean Corpuscular Hemoglobin 30.7 pg (27.0-33.0); Mean Corpuscular Volume 91.2 fL (80-98); Mean Platelet Volume 10.5 fL (9.4-12.4); Monocytes Absolute Auto 1.1 X10*3/uL (0.1-1.2); Monocytes Percent Auto 10.9 % (2-11); Neutrophils Absolute Auto 5.4 X10*3/uL (2.0-8.3); Neutrophils Percent Auto 53.3 % (45-73); Platelet Count 218 X10*3/uL (160-400); Red Blood Count 4.89 X10*6/uL (4.60-5.80); Red Cell Distribution Width 12.2 % (11.0-16.0); White Blood Count 10.1 X10*3/uL (4.8-10.8)
[2020-09-01 08:42] LABS: COVID-19 Test Negative (Negative); IDNOW Serial# 9DD0AD1C
[2020-09-01 08:49] LABS: Ethanol < 10 mg/dL
[2020-09-01 08:53] LABS: Alanine Aminotransferase 23 U/L (0-40); Alkaline Phosphatase 79 U/L (39-117); Anion Gap 10 (12-20); Aspartate Amino Transferase 28 U/L (5-37); Bilirubin Direct 0.6 mg/dL (0.0-0.5); Bilirubin Total 1.7 mg/dL (0.0-1.0); Blood Urea Nitrogen 25 mg/dL (9-16); Calcium 9.3 mg/dL (8.4-10.2); Carbon Dioxide 29 mmol/L (22-29); Chloride 101 mmol/L (96-108); Creatinine Clr Calc Pharmacy 129.7; Estimated Glomerular Filt Rate > 60; Glucose Random 115 mg/dL (60-115); Potassium 3.7 mmol/L (3.3-5.1); Sodium 136 mmol/L (135-145); Total Protein 6.6 g/dL (6.5-8.0)
[2020-09-01 08:54] LABS: Amphetamine Screen Urine Not Detected (Not Detect); Barbiturates, Urine Not Detected (Not Detect); Benzodiazepines Screen Urine Not Detected (Not Detect); Cannabinoid Screen Urine Not Detected (Not Detect); Cocaine Screen Urine POSITIVE (Not Detect); Opiate Screen Urine Not Detected (Not Detect); Phencyclidine Screen Urine Not Detected (Not Detect)
[2020-09-01 18:45] VITALS: BP 113/65; PULSE 53; RESP 18; O2SAT 100
== END 2020-09-01 20:11 | disposition home or self-care (01) ==
PROVIDERS: Emergency Provider Emergency Medicine; PCP Internal Medicine
DX: R45.851 Suicidal ideations (principal); F32.9 Major depressive disorder, single episode, unspecified; S50.812A Abrasion of left forearm, initial encounter; X78.9XXA Intentional self-harm by unspecified sharp object, initial encounter; Y93.9 Activity, unspecified; Y92.9 Unspecified place or not applicable; Y99.9 Unspecified external cause status; F41.9 Anxiety disorder, unspecified; F60.9 Personality disorder, unspecified; F64.0 Transsexualism; Z20.822 Contact with and (suspected) exposure to COVID-19; Z79.899 Other long term (current) drug therapy; F14.90 Cocaine use, unspecified, uncomplicated
CPT/HCPCS: 36415; 80048; 80076; 80307; 82077; 85025; 87635; 99285

== ENCOUNTER 2020-10-15 22:51 | Emergency (ER) | payer MEDICAID, SELFPAY ==
[2020-10-15 23:02] VITALS: BP 111/66; PULSE 68; RESP 18; TEMP 36.7; O2SAT 96; BMI 23.7
[2020-10-16 00:03] LABS: Amphetamine Screen Urine Not Detected (Not Detect); Barbiturates, Urine Not Detected (Not Detect); Benzodiazepines Screen Urine Not Detected (Not Detect); Cannabinoid Screen Urine Not Detected (Not Detect); Cocaine Screen Urine POSITIVE (Not Detect); Opiate Screen Urine Not Detected (Not Detect); Phencyclidine Screen Urine Not Detected (Not Detect)
[2020-10-16 00:27] LABS: MANUAL DIFF FLAG NO
[2020-10-16 00:30] LABS: Basophils Absolute Auto 0.1 X10*3/uL (0.0-0.2); Basophils Percent Auto 0.8 % (0-2); Eosinophils Absolute Auto 0.2 X10*3/uL (0.0-0.4); Eosinophils Percent Auto 1.8 % (0-4); Hematocrit 42.1 % (42-52); Hemoglobin 14.5 g/dl (14.0-18.0); Imm Gran Abs Auto 0.03 X10*3/uL (0.00-0.03); Imm Gran Pct Auto 0.3 % (0.0-0.4); Lymphocytes Absolute Auto 2.4 X10*3/uL (1.2-4.9); Lymphocytes Percent Auto 25.1 % (20-40); Mean Corpuscular HGB Conc 34.4 g/dl (31.0-36.0); Mean Corpuscular Hemoglobin 30.6 pg (27.0-33.0); Mean Corpuscular Volume 88.8 fL (80-98); Mean Platelet Volume 10.1 fL (9.4-12.4); Monocytes Percent Auto 10.8 % (2-11); Neutrophils Absolute Auto 5.8 X10*3/uL (2.0-8.3); Neutrophils Percent Auto 61.2 % (45-73); Platelet Count 257 X10*3/uL (160-400); Red Blood Count 4.74 X10*6/uL (4.60-5.80); Red Cell Distribution Width 12.2 % (11.0-16.0); White Blood Count 9.4 X10*3/uL (4.8-10.8)
--- NOTE | 2020-10-16 00:37 | PC.NURSE ---
PT REQUESTED AND WAS GIVEN 2 SANDWICHES AND 2 SODA'S. PT HAS BEEN COOPERATIVE AND PLEASANT TO TAKE CARE OF.
[2020-10-16 00:49] LABS: Anion Gap 11 (12-20); Blood Urea Nitrogen 16 mg/dL (9-16); Calcium 9.3 mg/dL (8.4-10.2); Carbon Dioxide 25 mmol/L (22-29); Chloride 107 mmol/L (96-108); Estimated Glomerular Filt Rate > 60; Glucose Random 94 mg/dL (60-115); Potassium 3.8 mmol/L (3.3-5.1); Sodium 139 mmol/L (135-145)
[2020-10-16 00:50] LABS: COVID-19 Test Negative (Negative)
[2020-10-16 00:57] LABS: Ethanol < 10 mg/dL
--- NOTE | 2020-10-16 01:00 | ED_ITS ---
HPI - Psych General Chief Complaint: Psychiatric Symptoms Stated Complaint: SI Time Seen by Provider: 10/16/20 00:05 Source: patient Mode of arrival: ambulatory Limitations: no limitations History of Present Illness HPI Narrative: 45-year-old transgender female presents with suicidal ideation and alcohol abuse. She states that she feels depressed, and has been drinking approximately 2 pt of alcohol per day. She is interested in detox at this time. She does not report homicidal ideation, chest pain or pressure, palpitations, shortness of breath, abdominal pain, abdominal distention, dysuria, hematuria, and any other concerning symptoms. MD complaint: suicidal ideation Related Data Home Medications Medication Instructions Recorded Confirmed lithium carbonate 1 tab PO BID 06/12/20 06/12/20 prazosin 2 cap PO BID 06/12/20 06/12/20 quetiapine 1 tab PO BEDTIME PRN 06/12/20 06/12/20 spironolactone 1 tab PO BID 06/12/20 06/12/20 Allergies Allergy/AdvReac Type Severity Reaction Status Date / Time nicotine [From NICODERM CQ] Allergy Mild SHORTNESS Verified 05/18/20 22:41 OF BREATH ketchup [KETCHUP] Allergy Unknown RASH Verified 05/18/20 22:41 onion [ONION] Allergy Unknown RASH Verified 05/18/20 22:41 tomato [TOMATO] Allergy Unknown RASH Verified 05/18/20 22:41 Review of Systems Review of Systems: Constitutional: No Fever, No Chills ENT/Mouth: No Ear Pain, No Nasal Congestion, No sore throat Eyes: No Eye Pain, No Swelling, No Redness Cardiovascular: No Chest Pain, No SOB Respiratory: No Cough, No Sputum, No Dyspnea Gastrointestinal: No Nausea, No Vomiting, No Diarrhea, No Hematochezia, No Melena Genitourinary: No Dysuria, No Urinary Frequency, No Hematuria Musculoskeletal: No Myalgias Skin: No Skin Lesions, No rash Neuro: No Weakness, No Numbness, No Paresthesias, No Dizziness, No Headache Psych: positive Anxiety, positive Depression, positive SI, positive ETOH abuse Heme/Lymph: No Lymphadenopathy Endocrine: No Polyuria, No Polydipsia Yes all other systems are reviewed and are negative [facility] Past Medical History Attestation statement: The following information was validated with the patient. Source: old records reviewed Medical History Bipolar 1 disorder Personality disorder Transgender Social History Social History Alcohol intake: current Alcohol intake frequency: 0-2 drinks per day Alcohol type: hard liquor Patient Tobacco Use Status: Never used Tobacco Substance Use Type: Crack/Cocaine Advance Directives: No Advance Directives Information Provided: No Physical Exam Vital Signs: Vital Signs: Last Vital Signs Temp 98.0 F 10/15/20 23:02 Pulse 68 10/15/20 23:02 Resp 18 10/15/20 23:02 BP 111/66 10/15/20 23:02 Pulse Ox 96 10/15/20 23:02 Body Mass Index 23.7 Appearance: Alert. Oriented X3. Moderate psychiatric distress. Eyes: Pupils equal, round and reactive to light. ENT: Pharynx normal. Neck: Normal inspection. Neck supple. CVS: Normal heart rate and rhythm. Pulses normal. Respiratory: No respiratory distress. Breath sounds normal. Abdomen: Soft and nontender. Skin: Skin warm and dry. Normal skin color. Normal skin turgor. Extremities: No lower extremity edema. Neuro: No motor deficit. No sensory deficit. Course Course Course Narrative: 45-year-old transgender female presents with suicidal ideation and alcohol abuse. Requesting detox. This patient is well-known to this facility. Will order crisis consult, labs, and EtOH. Physician observation started at this time. Tox screen positive for cocaine ETOH less than 10. MDM - Psych Differential Diagnosis Differential diagnosis: Likely suicidal ideation, bipolar disorder, depression, acute anxiety, substance abuse and alcohol intoxication Medical Records Attestation: I reviewed the patient's medical records. Lab Data Attestation: I reviewed the patient's lab results. Result diagrams: 10/16/20 00:22 10/16/20 00:22 Labs: Lab Results 10/15/20 10/16/20 10/16/20 Range/Units 23:30 00:22 00:22 WBC 9.4 (4.8-10.8) X10*3/uL RBC 4.74 (4.60-5.80) X10*6/uL Hgb 14.5 (14.0-18.0) g/dl Hct 42.1 (42-52) % MCV 88.8 (80-98) fL MCH 30.6 (27.0-33.0) pg MCHC 34.4 (31.0-36.0) g/dl RDW 12.2 (11.0-16.0) % Plt Count 257 (160-400) X10*3/uL MPV 10.1 (9.4-12.4) fL Immature Gran % (Auto) 0.3 (0.0-0.4) % Neut % (Auto) 61.2 (45-73) % Lymph % (Auto) 25.1 (20-40) % [place] % (Auto) 10.8 (2-11) % Eos % (Auto) 1.8 (0-4) % Baso % (Auto) 0.8 (0-2) % Lymph # (Auto) 2.4 (1.2-4.9) X10*3/uL [place] # (Auto) 1.0 (0.1-1.2) X10*3/uL Eos # (Auto) 0.2 (0.0-0.4) X10*3/uL Baso # (Auto) 0.1 (0.0-0.2) X10*3/uL Abs Immat Gran (auto) 0.03 (0.00-0.03) X10*3/uL Absolute Neuts (auto) 5.8 (2.0-8.3) X10*3/uL Absolute Nucleated RBC 0.000 (0.0-0.012) X10*3/uL Nucleated RBC % (auto) 0.0 (0.0-0.2) /100WBC Sodium (135-145) mmol/L Potassium (3.3-5.1) mmol/L Chloride (96-108) mmol/L Carbon Dioxide (22-29) mmol/L Anion Gap (12-20) BUN (9-16) mg/dL Creatinine (0.5-1.4) mg/dL Estim Creat Clear Calc Estimated GFR Random Glucose (60-115) mg/dL Calcium (8.4-10.2) mg/dL Urine Opiates Screen Not Detected (Not Detect) Ur Barbiturates Screen Not Detected (Not Detect) Ur Phencyclidine Scrn Not Detected (Not Detect) Ur Amphetamines Screen Not Detected (Not Detect) U Benzodiazepines Scrn Not Detected (Not Detect) Urine Cocaine Screen POSITIVE H (Not Detect) U Marijuana (THC) Screen Not Detected (Not Detect) Ethyl Alcohol < 10 mg/dL COVID-19 ([facility]) (Negative) COVID-19 Clin Com 10/16/20 10/16/20 Range/Units 00:22 00:22 WBC (4.8-10.8) X10*3/uL RBC (4.60-5.80) X10*6/uL Hgb (14.0-18.0) g/dl Hct (42-52) % MCV (80-98) fL MCH (27.0-33.0) pg MCHC (31.0-36.0) g/dl RDW (11.0-16.0) % Plt Count (160-400) X10*3/uL MPV (9.4-12.4) fL Immature Gran % (Auto) (0.0-0.4) % Neut % (Auto) (45-73) % Lymph % (Auto) (20-40) % [place] % (Auto) (2-11) % Eos % (Auto) (0-4) % Baso % (Auto) (0-2) % Lymph # (Auto) (1.2-4.9) X10*3/uL [place] # (Auto) (0.1-1.2) X10*3/uL Eos # (Auto) (0.0-0.4) X10*3/uL Baso # (Auto) (0.0-0.2) X10*3/uL Abs Immat Gran (auto) (0.00-0.03) X10*3/uL Absolute Neuts (auto) (2.0-8.3) X10*3/uL Absolute Nucleated RBC (0.0-0.012) X10*3/uL Nucleated RBC % (auto) (0.0-0.2) /100WBC Sodium 139 (135-145) mmol/L Potassium 3.8 (3.3-5.1) mmol/L Chloride 107 (96-108) mmol/L Carbon Dioxide 25 (22-29) mmol/L Anion Gap 11 L (12-20) BUN 16 (9-16) mg/dL Creatinine 0.88 (0.5-1.4) mg/dL Estim Creat Clear Calc 114.0 Estimated GFR > 60 Random Glucose 94 (60-115) mg/dL Calcium 9.3 (8.4-10.2) mg/dL Urine Opiates Screen (Not Detect) Ur Barbiturates Screen (Not Detect) Ur Phencyclidine Scrn (Not Detect) Ur Amphetamines Screen (Not Detect) U Benzodiazepines Scrn (Not Detect) Urine Cocaine Screen (Not Detect) U Marijuana (THC) Screen (Not Detect) Ethyl Alcohol mg/dL COVID-19 ([facility]) Negative (Negative) COVID-19 Clin Com See Note Discharge Plan Discharge Prescriptions: No Action quetiapine 25 mg tablet 1 tab PO BEDTIME PRN (Reason: Anxiety) RF: 0 prazosin 1 mg capsule 2 cap PO BID RF: 0 spironolactone 100 mg tablet 1 tab PO BID RF: 0 lithium carbonate 300 mg tablet 1 tab PO BID RF: 0
--- NOTE | 2020-10-16 07:05 | PC.NURSE ---
Patient slept through the night, no distress observed/reported, awaiting N evaluation, patient reported she is off her medication for a while, no behavioral concerns, VSS, will continue to monitor.
--- NOTE | 2020-10-16 07:19 | PC.NURSE ---
patient appears to remain at rest at present with even unlabored breaths. patient appears in no distress
[2020-10-16 10:47] VITALS: BP 112/70; PULSE 51; RESP 16; TEMP 36.5; O2SAT 98
== END 2020-10-16 12:45 | disposition home or self-care (01) ==
PROVIDERS: Nurse Practitioner Family; Emergency Provider Student in an Organized Health Care Education/Training Program
DX: F32.9 Major depressive disorder, single episode, unspecified (principal); R45.851 Suicidal ideations; F10.129 Alcohol abuse with intoxication, unspecified; Y90.0 Blood alcohol level of less than 20 mg/100 ml; K02.9 Dental caries, unspecified; F31.9 Bipolar disorder, unspecified; F64.0 Transsexualism; Z79.899 Other long term (current) drug therapy; Z20.822 Contact with and (suspected) exposure to COVID-19
CPT/HCPCS: 36415; 80048; 80307; 82077; 85025; 87635; 99283; 99285

== ENCOUNTER 2020-12-19 07:21 | Emergency (ER) | payer MEDICAID, SELFPAY ==
[2020-12-19 08:20] VITALS: BP 109/70; PULSE 58; RESP 16; TEMP 36.8; O2SAT 98; BMI 25.1
[2020-12-19 08:31] VITALS: BP 108/70; PULSE 58; RESP 16; TEMP 36.8; O2SAT 98
--- NOTE | 2020-12-19 09:08 | ED.PSYCH ---
HPI - Psych General Chief Complaint: Psychiatric Symptoms <ELSIE Ibarra Last Filed: 12/19/20 18:15> Stated Complaint: CRISIS <ELSIE Ibarra Last Filed: 12/19/20 18:15> Time Seen by Provider: 12/19/20 08:46 <ELSIE Ibarra Last Filed: 12/19/20 18:15> Source: patient <ELSIE Ibarra Last Filed: 12/19/20 18:15> Mode of arrival: ambulatory <ELSIE Ibarra Last Filed: 12/19/20 18:15> Limitations: no limitations <ELSIE Ibarra Last Filed: 12/19/20 18:15> History of Present Illness HPI Narrative: 45-year-old transient female presents to the ED for suicidal thoughts. Patient states he cut his left wrist 3 weeks ago the river superficial healed on his own. Patient states his plan is to cut himself untill he dies patient denies any recent trauma. Patient admits to being depressed. <ELSIE Ibarra Last Filed: 12/19/20 18:15> Related Data Home Medications: Home Medications Medication Instructions Recorded Confirmed lithium carbonate 300 mg tablet 1 tab PO BID 06/12/20 06/12/20 prazosin 1 mg capsule 2 cap PO BID 06/12/20 06/12/20 quetiapine 25 mg tablet 1 tab PO BEDTIME PRN 06/12/20 06/12/20 spironolactone 100 mg tablet 1 tab PO BID 06/12/20 06/12/20 Previous Rx's Medication Instructions Recorded clindamycin HCl 300 mg capsule 450 mg PO Q8H 7 Days #32 cap 10/16/20 <ELSIE Ibarra Last Filed: 12/19/20 18:15> Allergies/Adverse Reactions: Allergies Allergy/AdvReac Type Severity Reaction Status Date / Time nicotine [From NICODERM CQ] Allergy Mild SHORTNESS Verified 05/18/20 22:41 OF BREATH ketchup [KETCHUP] Allergy Unknown RASH Verified 05/18/20 22:41 onion [ONION] Allergy Unknown RASH Verified 05/18/20 22:41 tomato [TOMATO] Allergy Unknown RASH Verified 05/18/20 22:41 <ELSIE Ibarra Last Filed: 12/19/20 18:15> Review of Systems Review of Systems: Yes all other systems are reviewed and are negative <ELSIE Ibarra Last Filed: 12/19/20 18:15> Constitutional: Constitutional: Reports as per HPI and Reports no additional constitutional complaints <ELSIE Ibarra Last Filed: 12/19/20 18:15> Eyes: Eyes: Reports as per HPI and Reports no additional eye complaints <ELSIE Ibarra Last Filed: 12/19/20 18:15> ENT: Reports system reviewed and no additional complaints, except as documented and Reports as per HPI <ELSIE Ibarra Last Filed: 12/19/20 18:15> Cardiovascular: Cardiovascular: Reports as per HPI and Reports no additional cardiovascular complaints <ELSIE Ibarra Last Filed: 12/19/20 18:15> Respiratory: Respiratory: Reports as per HPI and Reports no additional respiratory complaints <ELSIE Ibarra Last Filed: 12/19/20 18:15> Gastrointestinal: Gastrointestinal: Reports as per HPI and Reports no additional gastrointestinal complaints <ELSIE Ibarra Last Filed: 12/19/20 18:15> Genitourinary: Genitourinary: Reports no additional male genitourinary complaints and Reports as per HPI <ELSIE Ibarra Last Filed: 12/19/20 18:15> Musculoskeletal: Musculoskeletal: Reports no additional musculoskeletal complaints and Reports as per HPI <ELSIE Ibarra Last Filed: 12/19/20 18:15> Integumentary/Breasts: Skin/Breast: Reports system reviewed and no additional complaints, except as docu and Reports as per HPI <ELSIE Ibarra Last Filed: 12/19/20 18:15> Neurologic: Reports system reviewed and no additional complaints, except as documented and Reports as per HPI <ELSIE Ibarra Last Filed: 12/19/20 18:15> Psychiatric: Psychiatric: Reports no additional psychiatric complaints, Reports as per HPI and Reports suicidal ideation <ELSIE Ibarra Last Filed: 12/19/20 18:15> PMFSH Past Medical History Medical History: Medical History Bipolar 1 disorder Personality disorder Transgender <ELSIE Ibarra - Last Filed: 12/19/20 18:15> Social History Social History: Social History Alcohol intake: unknown Patient Tobacco Use Status: Never used Tobacco Use of substances other than those prescribed or required for medical reasons: Unknown Substance Use Type: Crack/Cocaine Advance Directives: Yes Advance Directives Information Provided: No Advance Directives on File: No <ELSIE Ibarra - Last Filed: 12/19/20 18:15> Physical Exam Vital Signs: Vital Signs: Last Vital Signs Temp 98.3 F 12/19/20 08:31 Pulse 58 12/19/20 08:31 Resp 12/19/20 14:00 BP 108/70 12/19/20 08:31 Pulse Ox 98 12/19/20 08:31 Body Mass Index 25.1 <ELSIE Ibarra - Last Filed: 12/19/20 18:15> Vital Signs: Last Vital Signs Temp 98.3 F 12/19/20 08:31 Pulse 58 12/19/20 08:31 Resp 18 12/19/20 14:00 BP 108/70 12/19/20 08:31 Pulse Ox 98 12/19/20 08:31 Body Mass Index 25.1 <Concepcion Thomas NP - Last Filed: 12/19/20 18:33> Const: General: cooperative, healthy appearing, comfortable, no acute distress, well developed, alert and awake <ELSIE Ibarra - Last Filed: 12/19/20 18:15> Orientation/consciousness: patient oriented x3 <ELSIE Ibarra - Last Filed: 12/19/20 18:15> HENMT: Head: Yes normal to inspection, Yes No palpable skull fracture present, Yes normocephalic and Yes atraumatic <ELSIE Ibarra - Last Filed: 12/19/20 18:15> Eyes: General: appearance normal, both eyes and all related structures <ELSIE Ibarra - Last Filed: 12/19/20 18:15> Neck: Neck: Yes normal visual inspection, Yes full ROM, Yes no lymphadenopathy, Yes no meningeal signs, Yes trachea midline, Yes supple and No tender <ELSIE Ibarra - Last Filed: 12/19/20 18:15> Chest: Chest palpation & inspection: normal inspection of the chest and normal palpation of entire chest wall <ELSIE Ibarra Last Filed: 12/19/20 18:15> Resp: Effort & Inspection: normal respiratory effort and able to speak in complete sentences <ELSIE Ibarra Last Filed: 12/19/20 18:15> Cardio: Jugular venous distension: no JVD <ELSIE Ibarra Last Filed: 12/19/20 18:15> Heart sounds: S1 normal heart sound present and S2 normal heart sound present <ELSIE Ibarra Last Filed: 12/19/20 18:15> GI: Inspection: Yes normal to inspection and No abdominal wall ecchymosis <ELSIE Ibarra Last Filed: 12/19/20 18:15> Palpation (GI): Soft to palpation, not firm, nontender, no guarding and not rigid <ELSIE Ibarra Last Filed: 12/19/20 18:15> : General: No CVA tenderness and Yes no CVA tenderness <ELSIE Ibarra Last Filed: 12/19/20 18:15> Back/Spine/Pelvis: Back: no CVA tenderness, No CVA tenderness and No back tenderness <ELSIE Ibarra Last Filed: 12/19/20 18:15> Skin: General skin exam: no rashes or lesions noted and elasticity normal <ELSIE Ibarra Last Filed: 12/19/20 18:15> Neuro: General: patient oriented x3, gait normal, no meningeal signs and CN's II-XI intact bilaterally <ELSIE Ibarra Last Filed: 12/19/20 18:15> Cranial nerves: Yes CN's II-XII intact bilaterally <ELSIE Ibarra Last Filed: 12/19/20 18:15> Extrem: General: Yes normal to inspection and Yes full ROM <ELSIE Ibarra Last Filed: 12/19/20 18:15> Psych: Appearance: grossly normal, well kempt and not disheveled <ELSIE Ibarra Last Filed: 12/19/20 18:15> Course Course Course Narrative: Patient will have labs and be seen by [facility] <ELSIE Ibarra - Last Filed: 12/19/20 18:15> Reevaluation(s) Reevaluation #1: [facility] consulted Miles came to evaluate patient, but patient states she prefers a female crisis contract analyst. Miles call this [facility] nurse weaving supervisor and they said they would not send anyone else to evaluate patient and patient could be evaluated by care team. Either of care team states when she is available she will evaluate patient <ELSIE Ibarra - Last Filed: 12/19/20 18:15> [facility] consulted Miles came to evaluate patient, but patient states she prefers a female crisis contract analyst. Miles call this [facility] nurse weaving supervisor and they said they would not send anyone else to evaluate patient and patient could be evaluated by care team. Either of care team states when she is available she will evaluate patient 12/19 1830-patient was seen by care team. Plan for discharge to the living room <Concepcion Thomas NP - Last Filed: 12/19/20 18:33> Time: 18:14 <ELSIE Ibarra - Last Filed: 12/19/20 18:15> MDM - Psych Lab Data Result diagrams: : 12/19/20 09:05 12/19/20 09:05 <ELSIE Ibarra - Last Filed: 12/19/20 18:15> Labs: Lab Results 12/19/20 12/19/20 12/19/20 Range/Units 09:05 09:05 09:05 WBC 10.5 (4.8-10.8) X10*3/uL RBC 4.38 L (4.60-5.80) X10*6/uL Hgb 13.7 L (14.0-18.0) g/dl Hct 39.3 L (42-52) % MCV 89.7 (80-98) fL MCH 31.3 (27.0-33.0) pg MCHC 34.9 (31.0-36.0) g/dl RDW 12.7 (11.0-16.0) % Plt Count 261 (160-400) X10*3/uL MPV 10.4 (9.4-12.4) fL Immature Gran % (Auto) 0.3 (0.0-0.4) % Neut % (Auto) 52.5 (45-73) % Lymph % (Auto) 28.1 (20-40) % Mobile % (Auto) 13.1 H (2-11) % Eos % (Auto) 5.2 H (0-4) % Baso % (Auto) 0.8 (0-2) % Lymph # (Auto) 2.9 (1.2-4.9) X10*3/uL Mobile # (Auto) 1.4 H (0.1-1.2) X10*3/uL Eos # (Auto) 0.5 H (0.0-0.4) X10*3/uL Baso # (Auto) 0.1 (0.0-0.2) X10*3/uL Abs Immat Gran (auto) 0.03 (0.00-0.03) X10*3/uL Absolute Neuts (auto) 5.5 (2.0-8.3) X10*3/uL Absolute Nucleated RBC 0.000 (0.0-0.012) X10*3/uL Nucleated RBC % (auto) 0.0 (0.0-0.2) /100WBC Sodium 141 (135-145) mmol/L Potassium 3.5 (3.3-5.1) mmol/L Chloride 107 (96-108) mmol/L Carbon Dioxide 28 (22-29) mmol/L Anion Gap 10 L (12-20) BUN 11 (9-16) mg/dL Creatinine 0.94 (0.5-1.4) mg/dL Estim Creat Clear Calc 106.8 Estimated GFR > 60 Random Glucose 86 (60-115) mg/dL Calcium 8.7 D (8.4-10.2) mg/dL Total Bilirubin 0.5 (0.0-1.0) mg/dL Direct Bilirubin 0.2 (0.0-0.5) mg/dL AST 18 (5-37) U/L ALT 17 (0-40) U/L Alkaline Phosphatase 82 (39-117) U/L Total Protein 6.2 L (6.5-8.0) g/dL Albumin 3.7 (3.5-5.0) g/dL Urine Opiates Screen (Not Detect) Urine Fentanyl Screen (Not Detect) Ur Barbiturates Screen (Not Detect) Ur Phencyclidine Scrn (Not Detect) Ur Amphetamines Screen (Not Detect) U Benzodiazepines Scrn (Not Detect) Urine Cocaine Screen (Not Detect) U Marijuana (THC) Screen (Not Detect) Ethyl Alcohol < 10 mg/dL COVID-19 ([facility]) (Negative) COVID-19 Clin Com 12/19/20 12/19/20 Range/Units 12:04 16:50 WBC (4.8-10.8) X10*3/uL RBC (4.60-5.80) X10*6/uL Hgb (14.0-18.0) g/dl Hct (42-52) % MCV (80-98) fL MCH (27.0-33.0) pg MCHC (31.0-36.0) g/dl RDW (11.0-16.0) % Plt Count (160-400) X10*3/uL MPV (9.4-12.4) fL Immature Gran % (Auto) (0.0-0.4) % Neut % (Auto) (45-73) % Lymph % (Auto) (20-40) % Mobile % (Auto) (2-11) % Eos % (Auto) (0-4) % Baso % (Auto) (0-2) % Lymph # (Auto) (1.2-4.9) X10*3/uL Mobile # (Auto) (0.1-1.2) X10*3/uL Eos # (Auto) (0.0-0.4) X10*3/uL Baso # (Auto) (0.0-0.2) X10*3/uL Abs Immat Gran (auto) (0.00-0.03) X10*3/uL Absolute Neuts (auto) (2.0-8.3) X10*3/uL Absolute Nucleated RBC (0.0-0.012) X10*3/uL Nucleated RBC % (auto) (0.0-0.2) /100WBC Sodium (135-145) mmol/L Potassium (3.3-5.1) mmol/L Chloride (96-108) mmol/L Carbon Dioxide (22-29) mmol/L Anion Gap (12-20) BUN (9-16) mg/dL Creatinine (0.5-1.4) mg/dL Estim Creat Clear Calc Estimated GFR Random Glucose (60-115) mg/dL Calcium (8.4-10.2) mg/dL Total Bilirubin (0.0-1.0) mg/dL Direct Bilirubin (0.0-0.5) mg/dL AST (5-37) U/L ALT (0-40) U/L Alkaline Phosphatase (39-117) U/L Total Protein (6.5-8.0) g/dL Albumin (3.5-5.0) g/dL Urine Opiates Screen Not Detected (Not Detect) Urine Fentanyl Screen Not Detected (Not Detect) Ur Barbiturates Screen Not Detected (Not Detect) Ur Phencyclidine Scrn Not Detected (Not Detect) Ur Amphetamines Screen Not Detected (Not Detect) U Benzodiazepines Scrn Not Detected (Not Detect) Urine Cocaine Screen POSITIVE H (Not Detect) U Marijuana (THC) Screen Not Detected (Not Detect) Ethyl Alcohol mg/dL COVID-19 ([facility]) Negative (Negative) COVID-19 Clin Com See Note <ELSIE Ibarra - Last Filed: 12/19/20 18:15> Lab Results 12/19/20 12/19/20 12/19/20 Range/Units 09:05 09:05 09:05 WBC 10.5 (4.8-10.8) X10*3/uL RBC 4.38 L (4.60-5.80) X10*6/uL Hgb 13.7 L (14.0-18.0) g/dl Hct 39.3 L (42-52) % MCV 89.7 (80-98) fL MCH 31.3 (27.0-33.0) pg MCHC 34.9 (31.0-36.0) g/dl RDW 12.7 (11.0-16.0) % Plt Count 261 (160-400) X10*3/uL MPV 10.4 (9.4-12.4) fL Immature Gran % (Auto) 0.3 (0.0-0.4) % Neut % (Auto) 52.5 (45-73) % Lymph % (Auto) 28.1 (20-40) % Mobile % (Auto) 13.1 H (2-11) % Eos % (Auto) 5.2 H (0-4) % Baso % (Auto) 0.8 (0-2) % Lymph # (Auto) 2.9 (1.2-4.9) X10*3/uL Mobile # (Auto) 1.4 H (0.1-1.2) X10*3/uL Eos # (Auto) 0.5 H (0.0-0.4) X10*3/uL Baso # (Auto) 0.1 (0.0-0.2) X10*3/uL Abs Immat Gran (auto) 0.03 (0.00-0.03) X10*3/uL Absolute Neuts (auto) 5.5 (2.0-8.3) X10*3/uL Absolute Nucleated RBC 0.000 (0.0-0.012) X10*3/uL Nucleated RBC % (auto) 0.0 (0.0-0.2) /100WBC Sodium 141 (135-145) mmol/L Potassium 3.5 (3.3-5.1) mmol/L Chloride 107 (96-108) mmol/L Carbon Dioxide 28 (22-29) mmol/L Anion Gap 10 L (12-20) BUN 11 (9-16) mg/dL Creatinine 0.94 (0.5-1.4) mg/dL Estim Creat Clear Calc 106.8 Estimated GFR > 60 Random Glucose 86 (60-115) mg/dL Calcium 8.7 D (8.4-10.2) mg/dL Total Bilirubin 0.5 (0.0-1.0) mg/dL Direct Bilirubin 0.2 (0.0-0.5) mg/dL AST 18 (5-37) U/L ALT 17 (0-40) U/L Alkaline Phosphatase 82 (39-117) U/L Total Protein 6.2 L (6.5-8.0) g/dL Albumin 3.7 (3.5-5.0) g/dL Urine Opiates Screen (Not Detect) Urine Fentanyl Screen (Not Detect) Ur Barbiturates Screen (Not Detect) Ur Phencyclidine Scrn (Not Detect) Ur Amphetamines Screen (Not Detect) U Benzodiazepines Scrn (Not Detect) Urine Cocaine Screen (Not Detect) U Marijuana (THC) Screen (Not Detect) Ethyl Alcohol < 10 mg/dL COVID-19 ([facility]) (Negative) COVID-19 Clin Com 12/19/20 12/19/20 Range/Units 12:04 16:50 WBC (4.8-10.8) X10*3/uL RBC (4.60-5.80) X10*6/uL Hgb (14.0-18.0) g/dl Hct (42-52) % MCV (80-98) fL MCH (27.0-33.0) pg MCHC (31.0-36.0) g/dl RDW (11.0-16.0) % Plt Count (160-400) X10*3/uL MPV (9.4-12.4) fL Immature Gran % (Auto) (0.0-0.4) % Neut % (Auto) (45-73) % Lymph % (Auto) (20-40) % Mobile % (Auto) (2-11) % Eos % (Auto) (0-4) % Baso % (Auto) (0-2) % Lymph # (Auto) (1.2-4.9) X10*3/uL Mobile # (Auto) (0.1-1.2) X10*3/uL Eos # (Auto) (0.0-0.4) X10*3/uL Baso # (Auto) (0.0-0.2) X10*3/uL Abs Immat Gran (auto) (0.00-0.03) X10*3/uL Absolute Neuts (auto) (2.0-8.3) X10*3/uL Absolute Nucleated RBC (0.0-0.012) X10*3/uL Nucleated RBC % (auto) (0.0-0.2) /100WBC Sodium (135-145) mmol/L Potassium (3.3-5.1) mmol/L Chloride (96-108) mmol/L Carbon Dioxide (22-29) mmol/L Anion Gap (12-20) BUN (9-16) mg/dL Creatinine (0.5-1.4) mg/dL Estim Creat Clear Calc Estimated GFR Random Glucose (60-115) mg/dL Calcium (8.4-10.2) mg/dL Total Bilirubin (0.0-1.0) mg/dL Direct Bilirubin (0.0-0.5) mg/dL AST (5-37) U/L ALT (0-40) U/L Alkaline Phosphatase (39-117) U/L Total Protein (6.5-8.0) g/dL Albumin (3.5-5.0) g/dL Urine Opiates Screen Not Detected (Not Detect) Urine Fentanyl Screen Not Detected (Not Detect) Ur Barbiturates Screen Not Detected (Not Detect) Ur Phencyclidine Scrn Not Detected (Not Detect) Ur Amphetamines Screen Not Detected (Not Detect) U Benzodiazepines Scrn Not Detected (Not Detect) Urine Cocaine Screen POSITIVE H (Not Detect) U Marijuana (THC) Screen Not Detected (Not Detect) Ethyl Alcohol mg/dL COVID-19 ([facility]) Negative (Negative) COVID-19 Clin Com See Note <Concepcion Thomas NP - Last Filed: 12/19/20 18:33> Discharge Plan Discharge Clinical Impression: Depression, Bipolar disorder <ELSIE Ibarra - Last Filed: 12/19/20 18:15> Patient Disposition: Xfer Other <ELSIE Ibarra - Last Filed: 12/19/20 18:15> Transfer Details: living room <ELSIE Ibarra - Last Filed: 12/19/20 18:15> living room <Concepcion Thomas NP - Last Filed: 12/19/20 18:33> Instructions: Bipolar Disorder (ED) <ELSIE Ibarra Last Filed: 12/19/20 18:15> Prescriptions: No Action quetiapine 25 mg tablet 1 tab PO BEDTIME PRN (Reason: Anxiety) RF: 0 prazosin 1 mg capsule 2 cap PO BID RF: 0 spironolactone 100 mg tablet 1 tab PO BID RF: 0 lithium carbonate 300 mg tablet 1 tab PO BID RF: 0 clindamycin HCl 300 mg capsule 450 mg PO Q8H 7 Days Qty: 32 RF: 0 <ELSIE Ibarra Last Filed: 12/19/20 18:15>
[2020-12-19 09:12] LABS: Basophils Absolute Auto 0.1 X10*3/uL (0.0-0.2); Basophils Percent Auto 0.8 % (0-2); Eosinophils Absolute Auto 0.5 X10*3/uL (0.0-0.4); Eosinophils Percent Auto 5.2 % (0-4); Hematocrit 39.3 % (42-52); Hemoglobin 13.7 g/dl (14.0-18.0); Imm Gran Abs Auto 0.03 X10*3/uL (0.00-0.03); Imm Gran Pct Auto 0.3 % (0.0-0.4); Lymphocytes Absolute Auto 2.9 X10*3/uL (1.2-4.9); Lymphocytes Percent Auto 28.1 % (20-40); MANUAL DIFF FLAG NO; Mean Corpuscular HGB Conc 34.9 g/dl (31.0-36.0); Mean Corpuscular Hemoglobin 31.3 pg (27.0-33.0); Mean Corpuscular Volume 89.7 fL (80-98); Mean Platelet Volume 10.4 fL (9.4-12.4); Monocytes Absolute Auto 1.4 X10*3/uL (0.1-1.2); Monocytes Percent Auto 13.1 % (2-11); Neutrophils Absolute Auto 5.5 X10*3/uL (2.0-8.3); Neutrophils Percent Auto 52.5 % (45-73); Platelet Count 261 X10*3/uL (160-400); Red Blood Count 4.38 X10*6/uL (4.60-5.80); Red Cell Distribution Width 12.7 % (11.0-16.0); White Blood Count 10.5 X10*3/uL (4.8-10.8)
[2020-12-19 09:31] LABS: Alanine Aminotransferase 17 U/L (0-40); Albumin Level 3.7 g/dL (3.5-5.0); Alkaline Phosphatase 82 U/L (39-117); Anion Gap 10 (12-20); Aspartate Amino Transferase 18 U/L (5-37); Bilirubin Direct 0.2 mg/dL (0.0-0.5); Bilirubin Total 0.5 mg/dL (0.0-1.0); Blood Urea Nitrogen 11 mg/dL (9-16); Calcium 8.7 mg/dL (8.4-10.2); Carbon Dioxide 28 mmol/L (22-29); Chloride 107 mmol/L (96-108); Creatinine Clr Calc Pharmacy 106.8; Estimated Glomerular Filt Rate > 60; Glucose Random 86 mg/dL (60-115); Potassium 3.5 mmol/L (3.3-5.1); Sodium 141 mmol/L (135-145); Total Protein 6.2 g/dL (6.5-8.0)
[2020-12-19 09:34] LABS: Ethanol < 10 mg/dL
--- NOTE | 2020-12-19 11:53 | PC.NURSE ---
patient currently sleeping in room, will continue to monitor.
[2020-12-19 12:25] LABS: COVID-19 Test Negative (Negative); IDNOW Serial# 9DD0AD1C
[2020-12-19 14:00] VITALS: RESP 18
--- NOTE | 2020-12-19 15:10 | PC.NURSE ---
patient refusing to speak with Miles from [facility].
--- NOTE | 2020-12-19 15:27 | PC.NURSE ---
provider notified of patients refusal to speak with Miles from [facility], patient stated that she wishes to speak with a female and is agreeable to wait for a female from [facility], patient is aware that a female may not be available until Sunday.
[2020-12-19 17:15] LABS: Amphetamine Screen Urine Not Detected (Not Detect); Barbiturates, Urine Not Detected (Not Detect); Benzodiazepines Screen Urine Not Detected (Not Detect); Cannabinoid Screen Urine Not Detected (Not Detect); Cocaine Screen Urine POSITIVE (Not Detect); Fentanyl, urine Not Detected (Not Detect); Opiate Screen Urine Not Detected (Not Detect); Phencyclidine Screen Urine Not Detected (Not Detect)
--- NOTE | 2020-12-19 18:26 | PC.NURSE ---
patient ate dinner, female member of care team spoke with patient, patient currently sleeping, will continue to monitor.
--- NOTE | 2020-12-19 18:33 | PC.NURSE ---
patient spoke with care team, pt to be discharged- provider aware and will do discharge paperwork
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
--- NOTE | 2020-12-19 19:10 | PC.NURSE ---
patient discharged to the living room
== END 2020-12-19 19:10 | disposition other institution (70) ==
PROVIDERS: Physician Assistant; Emergency Provider Emergency Medicine Emergency Medical Services
DX: F33.1 Major depressive disorder, recurrent, moderate (principal); R45.851 Suicidal ideations; F14.90 Cocaine use, unspecified, uncomplicated; Z79.899 Other long term (current) drug therapy; Z20.822 Contact with and (suspected) exposure to COVID-19
CPT/HCPCS: 36415; 80053; 80307; 82077; 82248; 85025; 87635; 99285

== ENCOUNTER 2021-01-31 02:34 | Emergency (ER) | payer MEDICAID, SELFPAY ==
[2021-01-31 02:44] VITALS: BP 102/71; PULSE 62; RESP 16; TEMP 36.8; O2SAT 97; BMI 23.7
[2021-01-31 02:53] VITALS: BP 102/71; PULSE 62; RESP 16; TEMP 36.8; O2SAT 97
--- NOTE | 2021-01-31 03:22 | ED_ITS ---
HPI - Psych General Chief Complaint: Psychiatric Symptoms Stated Complaint: SI Time Seen by Provider: 01/31/21 03:22 Source: patient Mode of arrival: ambulatory History of Present Illness HPI Narrative: This is a 45-year-old male to female who presents with suicidal ideation with a plan to cut her wrists. Patient states that she has been off of her medication for a number of months. Otherwise, patient denies any recent fever, chills, GI or symptoms. Patient endorses she has not received COVID- 19 vaccination. Related Data Home Medications Medication Instructions Recorded Confirmed lithium carbonate 300 mg tablet 1 tab PO BID 06/12/20 06/12/20 prazosin 1 mg capsule 2 cap PO BID 06/12/20 06/12/20 quetiapine 25 mg tablet 1 tab PO BEDTIME PRN 06/12/20 06/12/20 spironolactone 100 mg tablet 1 tab PO BID 06/12/20 06/12/20 Previous Rx's Medication Instructions Recorded clindamycin HCl 300 mg capsule 450 mg PO Q8H 7 Days #32 cap 10/16/20 Allergies Allergy/AdvReac Type Severity Reaction Status Date / Time nicotine [From NICODERM CQ] Allergy Mild SHORTNESS Verified 05/18/20 22:41 OF BREATH ketchup [KETCHUP] Allergy Unknown RASH Verified 05/18/20 22:41 onion [ONION] Allergy Unknown RASH Verified 05/18/20 22:41 tomato [TOMATO] Allergy Unknown RASH Verified 05/18/20 22:41 Review of Systems Review of Systems: Pertinent positives and negatives as stated in HPI and 10 point review of symptoms is otherwise negative. PMFSH Past Medical History Source: nursing notes reviewed Medical History Bipolar 1 disorder Personality disorder Transgender Social History Social History Alcohol intake: unknown Patient Tobacco Use Status: Never used Tobacco Substance Use Type: Crack/Cocaine Advance Directives: No Physical Exam Vital Signs: Vital Signs: Last Vital Signs Temp 98.2 F 01/31/21 02:53 Pulse 62 01/31/21 02:53 Resp 16 01/31/21 02:53 BP 102/71 01/31/21 02:53 Pulse Ox 97 01/31/21 02:53 Body Mass Index 23.7 VITAL SIGNS: Reviewed. GENERAL: Well developed, well nourished, in no acute distress. HEAD: Normocephalic/atraumatic EYES: PERRLA, EOMI OROPHARYNX: no oral lesions noted, posterior pharynx clear NECK: Supple, no adenopathy LUNGS: Normal breath sounds. No adventitious sounds or accessory muscle use. SpO2<97> CARDIOVASCULAR: Regular rate and rhythm without noted murmurs ABDOMEN: Soft, non-tender, non-distended with bowel sounds. NEUROLOGIC: Alert and oriented x 4. Strength and sensation to light touch were grossly intact x 4, cranial nerves 2-12 are grossly intact. Course Course Course Narrative: This is a 45-year-old male to female patient who presents with suicidal ideation and a plan. Patient is otherwise medically cleared for further evaluation by the care team. Reevaluation(s) Reevaluation #1: Patient placed in physician observation because the patient needed more time for care team evaluation. At the time observation was started the patient's vital signs were stable, patient is alert and oriented, neuro: Nonfocal, CV RRR, lungs clear Time: 03:32 [facility] - Psych Lab Data Labs: Lab Results 01/31/21 01/31/21 Range/Units 02:59 02:59 Urine Opiates Screen Not Detected (Not Detect) Urine Fentanyl Screen Not Detected (Not Detect) Ur Barbiturates Screen Not Detected (Not Detect) Ur Phencyclidine Scrn Not Detected (Not Detect) Ur Amphetamines Screen Not Detected (Not Detect) U Benzodiazepines Scrn Not Detected (Not Detect) Urine Cocaine Screen POSITIVE H (Not Detect) U Marijuana (THC) Screen Not Detected (Not Detect) COVID-19 ([place]) Negative (Negative) COVID-19 Clin Com See Note Discharge Plan Discharge Clinical Impression: Suicidal ideation Prescriptions: No Action quetiapine 25 mg tablet 1 tab PO BEDTIME PRN (Reason: Anxiety) RF: 0 prazosin 1 mg capsule 2 cap PO BID RF: 0 spironolactone 100 mg tablet 1 tab PO BID RF: 0 lithium carbonate 300 mg tablet 1 tab PO BID RF: 0 clindamycin HCl 300 mg capsule 450 mg PO Q8H 7 Days Qty: 32 RF: 0
[2021-01-31 03:27] LABS: COVID-19 Test Negative (Negative); IDNOW Serial# 9DD0AD1C
[2021-01-31 03:28] LABS: Amphetamine Screen Urine Not Detected (Not Detect); Barbiturates, Urine Not Detected (Not Detect); Benzodiazepines Screen Urine Not Detected (Not Detect); Cannabinoid Screen Urine Not Detected (Not Detect); Cocaine Screen Urine POSITIVE (Not Detect); Fentanyl, urine Not Detected (Not Detect); Opiate Screen Urine Not Detected (Not Detect); Phencyclidine Screen Urine Not Detected (Not Detect)
--- NOTE | 2021-01-31 05:48 | PC.NURSE ---
Patient is currently in bed appears sleeping, no distress observed/reported, [facility] referral completed/confirmed, patient doesn't want to be assessed by [facility] due to ongoing legal issues, patient is off medication since May, will continue to monitor.
--- NOTE | 2021-01-31 07:01 | PC.NURSE ---
patient appears to remain asleep at present, patient appears in no distress respirations even and unlabored
--- NOTE | 2021-01-31 08:57 | PC.NURSE ---
patient had arisen within the last hour and requested snacks, two sandwiches and 2 juices four ounce apple.
--- NOTE | 2021-01-31 11:04 | ECG_ITS ---
Test Reason : MEDICAL CLEARANCE Blood Pressure : / mmHG Vent. Rate : 057 BPM Atrial Rate : 057 BPM P-R Int : 184 ms QRS Dur : 098 ms QT Int : 460 ms P-R-T Axes : 080 066 053 degrees QTc Int : 447 ms Sinus bradycardia Low voltage QRS Intra-ventricular conduction delay Abnormal ECG Heart rate has increased Referred By: Kim Medrano Electronically Signed By:DALLIN QUACH MD
[2021-01-31 11:25] LABS: MANUAL DIFF FLAG NO
[2021-01-31 11:26] LABS: Basophils Absolute Auto 0.1 X10*3/uL (0.0-0.2); Basophils Percent Auto 0.8 % (0-2); Eosinophils Absolute Auto 0.4 X10*3/uL (0.0-0.4); Eosinophils Percent Auto 5.2 % (0-4); Hematocrit 39.8 % (42.0-52.0); Hemoglobin 13.5 g/dl (14.0-18.0); Imm Gran Abs Auto 0.01 X10*3/uL (0.00-0.03); Imm Gran Pct Auto 0.1 % (0.0-0.4); Lymphocytes Absolute Auto 2.3 X10*3/uL (1.2-4.9); Lymphocytes Percent Auto 31.6 % (20-40); Mean Corpuscular HGB Conc 33.9 g/dl (31.0-36.0); Mean Corpuscular Hemoglobin 30.9 pg (27.0-33.0); Mean Corpuscular Volume 91.1 fL (80.0-98.0); Mean Platelet Volume 9.9 fL (9.4-12.4); Monocytes Absolute Auto 0.9 X10*3/uL (0.1-1.2); Monocytes Percent Auto 12.2 % (2-11); Neutrophils Absolute Auto 3.56 x10*3/uL (2.0-8.3); Neutrophils Percent Auto 50.1 % (45-73); Platelet Count 255 X10*3/uL (160-400); Red Blood Count 4.37 X10*6/uL (4.60-5.80); Red Cell Distribution Width 13.2 % (11.0-16.0); White Blood Count 7.1 X10*3/uL (4.8-10.8)
[2021-01-31 11:35] LABS: Lithium < 0.10 mmol/L (0.60-1.20)
[2021-01-31 11:44] LABS: Alanine Aminotransferase 13 U/L (0-40); Albumin Level 3.6 g/dL (3.5-5.0); Alkaline Phosphatase 68 U/L (39-117); Anion Gap 8 (12-20); Aspartate Amino Transferase 16 U/L (5-37); Bilirubin Direct 0.2 mg/dL (0.0-0.5); Bilirubin Total 0.5 mg/dL (0.0-1.0); Blood Urea Nitrogen 19 mg/dL (9-16); Calcium 8.8 mg/dL (8.4-10.2); Carbon Dioxide 27 mmol/L (22-29); Chloride 111 mmol/L (96-108); Creatinine Clr Calc Pharmacy 122.4; Estimated Glomerular Filt Rate > 60; Glucose Random 104 mg/dL (60-115); Potassium 4.1 mmol/L (3.3-5.1); Sodium 142 mmol/L (135-145); Total Protein 6.1 g/dL (6.5-8.0)
[2021-01-31 17:06] VITALS: BP 110/61; PULSE 55; RESP 18; TEMP 36.9; O2SAT 97
[2021-01-31 23:41] VITALS: BP 106/52; PULSE 55; RESP 16; TEMP 37.2; O2SAT 94
--- NOTE | 2021-02-01 05:38 | PC.NURSE ---
Patient slept through the night, up out of room x 3, for bathroom use and snacks, appetite good, behavior appropriate and non concerning, disposition is voluntary bed search, will continue to monitor.
--- NOTE | 2021-02-01 07:27 | PC.NURSE ---
patient appears to remain at rest at present, respirations are even and unlabored, patient appears in no distress
[2021-02-01 07:57] VITALS: BP 119/56; PULSE 52; RESP 18; TEMP 36.7; O2SAT 96
== END 2021-02-01 12:26 | disposition home or self-care (01) ==
PROVIDERS: Emergency Medicine; Emergency Provider Student in an Organized Health Care Education/Training Program
DX: R45.851 Suicidal ideations (principal); F31.9 Bipolar disorder, unspecified; F64.0 Transsexualism; Z79.899 Other long term (current) drug therapy; Z20.822 Contact with and (suspected) exposure to COVID-19
CPT/HCPCS: 36415; 80048; 80076; 80178; 80307; 85025; 87635; 93005; 99284

== ENCOUNTER 2021-04-10 20:29 | Emergency (ER) | payer MEDICAID, SELFPAY ==
--- NOTE | ~2021-04-10 | XR_ITS ---
EXAMINATION: XR ANKLE, LEFT CLINICAL INFORMATION: Pain COMPARISON: 10.25.2018 TECHNIQUE: AP, lateral, and mortise views of the left ankle. FINDINGS: No acute fracture or dislocation. Ankle mortise is congruent. Talar dome intact. Moderate plantar and posterior calcaneal enthesophytes. No ankle joint effusion. Soft tissues unremarkable. XR/XR ankle LT min 3V IMPRESSION: No acute fracture or dislocation.
[2021-04-10 20:45] VITALS: BP 118/70; PULSE 70; O2SAT 99
[2021-04-10 21:29] VITALS: BP 128/71; PULSE 64; RESP 20; TEMP 36.1; O2SAT 97; BMI 23.7
[2021-04-11 01:32] VITALS: BP 111/53; PULSE 54; RESP 16; TEMP 36.6; O2SAT 98
[2021-04-11 02:09] LABS: Appearance Urine CLEAR; Color Urine STRAW; Glucose Urine UA NEG (NEG); Leukocyte Esterase Urine NEG (NEG); Nitrite Urine NEG (NEG); PH 5.5 (5.0-8.0); Specific Gravity - Urine <= 1.005 (1.005-1.025); Urine Blood NEG (NEG); Urine Ketones NEG (NEG); Urine Protein NEG (NEG-TRACE)
--- NOTE | 2021-04-11 02:23 | ED.PSYCH ---
HPI - Psych General Chief Complaint: Psychiatric Symptoms Stated Complaint: ANKLE PAIN DUE TO FALL ON ICE Time Seen by Provider: 04/11/21 02:21 Source: patient Mode of arrival: EMS History of Present Illness HPI Narrative: She 45-year-old male to female presents via EMS with initial complaint of left ankle pain from a slip/fall accident yesterday and then while being triaged patient is requesting to speak to crisis stating that ?I need help with my medications?. At that time denies suicidal or homicidal ideation. Patient then rolled up her left sleeve demonstrating superficial abrasions to the left wrist stating ?I also did this?. 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 Patient states that she is suicidal. Related Data Home Medications Medication Instructions Recorded Confirmed lithium carbonate 300 mg tablet 1 tab PO BID 06/12/20 06/12/20 prazosin 1 mg capsule 2 cap PO BID 06/12/20 06/12/20 quetiapine 25 mg tablet 1 tab PO BEDTIME PRN 06/12/20 06/12/20 spironolactone 100 mg tablet 1 tab PO BID 06/12/20 06/12/20 Previous Rx's Medication Instructions Recorded clindamycin HCl 300 mg capsule 450 mg PO Q8H 7 Days #32 cap 10/16/20 Allergies Allergy/AdvReac Type Severity Reaction Status Date / Time nicotine [From NICODERM CQ] Allergy Mild SHORTNESS Verified 04/10/21 21:50 OF BREATH ketchup [KETCHUP] Allergy Unknown RASH Verified 04/10/21 21:50 onion [ONION] Allergy Unknown RASH Verified 04/10/21 21:50 tomato [TOMATO] Allergy Unknown RASH Verified 04/10/21 21:50 Review of Systems Review of Systems: Pertinent positives and negatives as stated in HPI 10 point review of systems is otherwise negative. [facility] Past Medical History Source: nursing notes reviewed Medical History Bipolar 1 disorder Personality disorder Transgender Social History Social History Alcohol intake: unknown Patient Tobacco Use Status: Never used Tobacco Substance Use Type: Crack/Cocaine Advance Directives: No Advance Directives Information Provided: No Physical Exam Vital Signs: Vital Signs: Last Vital Signs Temp 97.9 F 04/11/21 01:32 Pulse 54 04/11/21 01:32 Resp 16 04/11/21 04:00 BP 111/53 L 04/11/21 01:32 Pulse Ox 98 04/11/21 01:32 BMI result Body Mass Index 23.7 VITAL SIGNS: Reviewed. GENERAL: Well developed, well nourished, in no acute distress. HEAD: Normocephalic/atraumatic EYES: PERRLA, EOMI OROPHARYNX: no oral lesions noted, posterior pharynx clear LUNGS: Normal breath sounds. No adventitious sounds or accessory muscle use. SpO2<98> CARDIOVASCULAR: Regular rate and rhythm without noted murmurs ABDOMEN: Soft, non-tender, non-distended with bowel sounds. LEFT UPPER EXTREMITY: Trace red streaks noted to ventral surface of left forearm LEFT ANKLE: No swelling or deformity or bruising, sensation is intact, palpable DP/PT, capillary refills less than 2 seconds. NEUROLOGIC: Alert and oriented x 4, cranial nerves 2-12 grossly intact. PSYCH: Normal affect, calm Course Course Course Narrative: 45-year-old male to female (pronouns are she/her) with history and clinical presentation consistent with lack of medication compliance. Patient is calm and cooperative without depressive affect and the ?cuts? are most consistent with a self-inflicted scratch. However, patient is stating that she is suicidal and endorses a plan to ?jump off a bridge, etc.?. Patient is otherwise medically cleared for further evaluation by the behavioral team. Reevaluation(s) Reevaluation #1: Patient placed in physician observation because the patient needed more time for behavioral team evaluation. At the time observation was started the patient's vital signs were stable, patient is alert and oriented, neuro: Nonfocal, CV RRR, lungs clear Time: 05:01 MDM - Psych Lab Data Labs: Lab Results 04/11/21 04/11/21 04/11/21 Range/Units 02:04 02:04 03:08 Urine Color STRAW Urine Appearance CLEAR Urine pH 5.5 (5.0-8.0) Ur Specific [place] <= 1.005 (1.005-1.025) Urine Protein NEG (NEG-TRACE) MG/DL Urine Glucose (UA) NEG (NEG) MG/DL Urine Ketones NEG (NEG) MG/DL Urine Blood NEG (NEG) Urine Nitrite NEG (NEG) Ur Leukocyte Esterase NEG (NEG) Urine Opiates Screen Not Detected (Not Detect) Urine Fentanyl Screen Not Detected (Not Detect) Ur Barbiturates Screen Not Detected (Not Detect) Ur Phencyclidine Scrn Not Detected (Not Detect) Ur Amphetamines Screen Not Detected (Not Detect) U Benzodiazepines Scrn Not Detected (Not Detect) Urine Cocaine Screen POSITIVE H (Not Detect) U Marijuana (THC) Screen Not Detected (Not Detect) COVID-19 ([place]) Negative (Negative) COVID-19 Clin Com See Note Discharge Plan Discharge Clinical Impression: Bipolar disorder, Personality disorder Patient Disposition: Still a Patient Prescriptions: No Action quetiapine 25 mg tablet 1 tab PO BEDTIME PRN (Reason: Anxiety) RF: 0 prazosin 1 mg capsule 2 cap PO BID RF: 0 spironolactone 100 mg tablet 1 tab PO BID RF: 0 lithium carbonate 300 mg tablet 1 tab PO BID RF: 0 clindamycin HCl 300 mg capsule 450 mg PO Q8H 7 Days Qty: 32 RF: 0
[2021-04-11 03:27] LABS: COVID-19 Test Negative (Negative); IDNOW Serial# 9DD0AD1C
[2021-04-11 03:55] LABS: Amphetamine Screen Urine Not Detected (Not Detect); Barbiturates, Urine Not Detected (Not Detect); Benzodiazepines Screen Urine Not Detected (Not Detect); Cannabinoid Screen Urine Not Detected (Not Detect); Cocaine Screen Urine POSITIVE (Not Detect); Fentanyl, urine Not Detected (Not Detect); Opiate Screen Urine Not Detected (Not Detect); Phencyclidine Screen Urine Not Detected (Not Detect)
[2021-04-11 04:00] VITALS: RESP 16
[2021-04-11 06:31] VITALS: BP 109/53; PULSE 50; RESP 16; TEMP 36.4; O2SAT 97
[2021-04-11 07:14] VITALS: BP 101/61; PULSE 50; RESP 18; TEMP 36.7; O2SAT 95
--- NOTE | 2021-04-11 09:45 | MHC.CARE ---
CARE Team checks in with patient, who states that there was a misunderstanding and pt was never suicidal yesterday or today; pt denies SI, but acknowledges a past hx. Pt is very well know to [facility]. Pt is in good spirits, making jokes, jovial. Pt appears at baseline or better and is appropriate for discharge. CARE Team communicates to ELSIE Khan recommendation for d/c. CARE Team will attempt to find pt a ride to home.
--- NOTE | 2021-04-11 10:03 | PC.NURSE ---
PT AWAKE, ALERT AND ORIENTED. DENIES SI/HI. REPORTS WANTING TO GO HOME. I DON'T WANT TO STAY HERE...I'LL JUST CATCH COVID IF I DO, I'M NOT SI/HI CARE TEAM SPOKE WITH PATIENT. BERNA SPOKE WITH PATIENT. PLAN FOR DC. PT AGREEABLE
== END 2021-04-11 10:09 | disposition home or self-care (01) ==
PROVIDERS: Emergency Provider Student in an Organized Health Care Education/Training Program
DX: F31.9 Bipolar disorder, unspecified (principal); F60.9 Personality disorder, unspecified; Z20.822 Contact with and (suspected) exposure to COVID-19; F64.0 Transsexualism; F14.90 Cocaine use, unspecified, uncomplicated; Z79.899 Other long term (current) drug therapy
CPT/HCPCS: 73610; 80307; 81003; 87635; 99284; 99285

== ENCOUNTER 2021-05-15 18:51 | Emergency (ER) | payer MEDICAID, SELFPAY ==
--- NOTE | ~2021-05-15 | CT_ITS ---
EXAMINATION: NONCONTRAST HEAD CT NONCONTRAST CERVICAL SPINE CT INDICATION INFORMATION: Pain, jumped off bridge COMPARISON: 01/18/2012 TECHNIQUE: Separate noncontrast CT examinations of the head and cervical spine were performed. Coronal head CT images and coronal and sagittal cervical spine images were created at the technologist workstation. DLP: 1370 mGy-cm DOSE LOWERING TECHNIQUES: This CT examination was performed using dose optimization techniques as appropriate, variously including the following: - Automated exposure control - Adjustment of mA and/or kV according to patient size (this includes techniques or standardized protocols for targeted exams were dose is matched to indication/reason for exam; i.e. extremities or head) - Use of iterative reconstruction technique FINDINGS: Head: There is no evidence of acute intracranial hemorrhage or territorial infarction. No abnormal mass-effect or midline shift is seen. Yanez to white matter differentiation is well preserved. No extra-axial fluid collections are identified. The ventricles are normal in size. There is no abnormal attenuation within the brain parenchyma. The osseous structures and soft tissues are normal. The mastoid air cells and visualized portions of the paranasal sinuses are well-aerated. Cervical spine: There is anatomic alignment of the vertebral bodies and posterior elements. Vertebral body heights are maintained. There is disc space narrowing of the mid to lower cervical spine with associated endplate osteophytes. No evidence of acute fracture. No prevertebral soft tissue swelling. Visualized portions of the lung apices demonstrate mild emphysema. The thyroid gland is unremarkable. CT/CT cervical spine wo con IMPRESSION: No acute findings identified in the head or cervical spine.
--- NOTE | ~2021-05-15 | XR_ITS ---
EXAMINATION: XR FOOT, LEFT CLINICAL INFORMATION: Jumped off a bridge COMPARISON: None TECHNIQUE: AP, lateral, and oblique views of the left foot. FINDINGS: Osseous alignment is anatomic. No acute fracture is seen. There is mild to moderate degenerative change at the first metatarsophalangeal joint with joint space narrowing and spurring. Flattened contour of the second metatarsal head is noted. Posterior and plantar calcaneal spurring is noted. No significant focal soft tissue abnormality identified. XR/XR foot LT 2V IMPRESSION: 1. No acute fracture identified. 2. Degenerative change of the first MTP joint. 3. Flattened contour of the second metatarsal head, which can be seen with early changes of osteochondrosis (Freiberg infraction) in the proper clinical setting.
--- NOTE | ~2021-05-15 | CT_ITS ---
EXAMINATION: NONCONTRAST HEAD CT NONCONTRAST CERVICAL SPINE CT INDICATION INFORMATION: Pain, jumped off bridge COMPARISON: 01/18/2012 TECHNIQUE: Separate noncontrast CT examinations of the head and cervical spine were performed. Coronal head CT images and coronal and sagittal cervical spine images were created at the technologist workstation. DLP: 1370 mGy-cm DOSE LOWERING TECHNIQUES: This CT examination was performed using dose optimization techniques as appropriate, variously including the following: - Automated exposure control - Adjustment of mA and/or kV according to patient size (this includes techniques or standardized protocols for targeted exams were dose is matched to indication/reason for exam; i.e. extremities or head) - Use of iterative reconstruction technique FINDINGS: Head: There is no evidence of acute intracranial hemorrhage or territorial infarction. No abnormal mass-effect or midline shift is seen. Yanez to white matter differentiation is well preserved. No extra-axial fluid collections are identified. The ventricles are normal in size. There is no abnormal attenuation within the brain parenchyma. The osseous structures and soft tissues are normal. The mastoid air cells and visualized portions of the paranasal sinuses are well-aerated. Cervical spine: There is anatomic alignment of the vertebral bodies and posterior elements. Vertebral body heights are maintained. There is disc space narrowing of the mid to lower cervical spine with associated endplate osteophytes. No evidence of acute fracture. No prevertebral soft tissue swelling. Visualized portions of the lung apices demonstrate mild emphysema. The thyroid gland is unremarkable. CT/CT head/brain wo con IMPRESSION: No acute findings identified in the head or cervical spine.
[2021-05-15 18:57] VITALS: BP 120/73; PULSE 66; RESP 16; TEMP 36.6; O2SAT 100; BMI 24.4
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
[2021-05-15 20:22] LABS: COVID-19 Test Negative (Negative)
[2021-05-15 20:31] LABS: Amphetamine Screen Urine Not Detected (Not Detect); Barbiturates, Urine Not Detected (Not Detect); Benzodiazepines Screen Urine Not Detected (Not Detect); Cannabinoid Screen Urine Not Detected (Not Detect); Cocaine Screen Urine POSITIVE (Not Detect); Fentanyl, urine Not Detected (Not Detect); Opiate Screen Urine Not Detected (Not Detect); Phencyclidine Screen Urine Not Detected (Not Detect)
[2021-05-15 23:14] LABS: Basophils Absolute Auto 0.1 X10*3/uL (0.0-0.2); Basophils Percent Auto 0.8 % (0-2); Eosinophils Absolute Auto 0.5 X10*3/uL (0.0-0.4); Eosinophils Percent Auto 5.5 % (0-4); Hematocrit 40.6 % (42.0-52.0); Hemoglobin 13.5 g/dl (14.0-18.0); Imm Gran Abs Auto 0.03 X10*3/uL (0.00-0.03); Imm Gran Pct Auto 0.3 % (0.0-0.4); Lymphocytes Absolute Auto 3.4 X10*3/uL (1.2-4.9); Lymphocytes Percent Auto 35.8 % (20-40); MANUAL DIFF FLAG NO; Mean Corpuscular HGB Conc 33.3 g/dl (31.0-36.0); Mean Corpuscular Hemoglobin 30.5 pg (27.0-33.0); Mean Corpuscular Volume 91.6 fL (80.0-98.0); Mean Platelet Volume 10.2 fL (9.4-12.4); Monocytes Absolute Auto 1.2 X10*3/uL (0.1-1.2); Monocytes Percent Auto 12.4 % (2-11); Neutrophils Absolute Auto 4.3 x10*3/uL (2.0-8.3); Neutrophils Percent Auto 45.2 % (45-73); Platelet Count 224 X10*3/uL (160-400); Red Blood Count 4.43 X10*6/uL (4.60-5.80); Red Cell Distribution Width 12.7 % (11.0-16.0); White Blood Count 9.6 X10*3/uL (4.8-10.8)
[2021-05-15 23:23] LABS: Delay - Chemistry DELAY
[2021-05-15 23:30] LABS: Anion Gap 11 (12-20); Blood Urea Nitrogen 15 mg/dL (9-16); Calcium 8.8 mg/dL (8.4-10.2); Carbon Dioxide 26 mmol/L (22-29); Chloride 107 mmol/L (96-108); Creatinine Clr Calc Pharmacy 112.9; Estimated Glomerular Filt Rate > 60; Glucose Random 88 mg/dL (60-115); Potassium 3.5 mmol/L (3.3-5.1); Sodium 140 mmol/L (135-145)
[2021-05-15 23:33] VITALS: BP 118/61; PULSE 55; RESP 17; TEMP 36.9; O2SAT 96
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
[2021-05-16 00:28] LABS: Lithium < 0.10 mmol/L (0.60-1.20)
--- NOTE | 2021-05-16 02:40 | MHC.CARE ---
Late entry: N unable to send clinician to evaluate pt. This signwriter met with pt for assessment. Pt is requesting to go to respite and reported that she has already called to put herself on the waitlist for Rachna. CARE team will follow up with Rachna and re-assess pt in the morning.
[2021-05-16] MEDS: Acetaminophen 325 MG TABLET 975 MG PO ×2 (05:37→10:48)
[2021-05-16 06:28] VITALS: BP 123/62; PULSE 54; RESP 17; TEMP 36.9; O2SAT 97
[2021-05-16 08:56] VITALS: BP 97/44; PULSE 51; RESP 14; O2SAT 96
--- NOTE | 2021-05-16 10:30 | PHA.MEDREC ---
Pharmacy Consult ? Medication Reconciliation Pharmacy has completed the medication reconciliation. Pt stated that it has been a few days since any medications were taken, but unsure of exactly when. Destinee Flores, [facility]
== END 2021-05-16 11:26 | disposition home or self-care (01) ==
PROVIDERS: Emergency Provider Emergency Medicine
DX: F33.9 Major depressive disorder, recurrent, unspecified (principal); R45.851 Suicidal ideations; F14.10 Cocaine abuse, uncomplicated; R51.9 Headache, unspecified; M54.2 Cervicalgia; M79.672 Pain in left foot; Z20.822 Contact with and (suspected) exposure to COVID-19; Z79.899 Other long term (current) drug therapy
CPT/HCPCS: 36415; 70450; 72125; 73620; 80048; 80178; 80307; 85025; 87635; 99284

== ENCOUNTER 2021-06-21 09:32 | Emergency (ER) | payer MEDICAID, SELFPAY | END 2021-06-21 11:39 | disposition left against medical advice (07) | PROVIDERS: Emergency Provider Emergency Medicine | DX: K08.89 Other specified disorders of teeth and supporting structures (principal) ==

== ENCOUNTER 2021-06-30 00:51 | Emergency (ER) | payer MEDICAID, SELFPAY ==
[2021-06-30 00:53] VITALS: BP 120/72; PULSE 68; RESP 18; TEMP 36.8; O2SAT 98; BMI 23.7
[2021-06-30 02:02] LABS: COVID-19 Test Negative (Negative)
--- NOTE | 2021-06-30 02:15 | ED_ITS ---
HPI - Psych General Chief Complaint: Psychiatric Symptoms Stated Complaint: Crisis Time Seen by Provider: 06/30/21 01:02 Source: patient Mode of arrival: ambulatory History of Present Illness HPI Narrative: 46-year-old patient who presents with complaints of hearing voices that are mumbling in nature and stating that lithium was stopped due to taking ibuprofen for dental pain but otherwise all other medications have been taken as prescr ibed. Patient denies fever, chills, GI, symptoms and states that there have also been suicidal ideations with a plan to jump from a bridge. Related Data Home Medications Medication Instructions Recorded Confirmed prazosin 1 mg capsule 1 cap PO BEDTIME 06/12/20 05/16/21 lithium carbonate 600 mg capsule 1 cap PO BID 05/16/21 05/16/21 quetiapine 50 mg tablet 1 tab PO BEDTIME 05/16/21 05/16/21 Allergies Allergy/AdvReac Type Severity Reaction Status Date / Time nicotine [From NICODERM CQ] Allergy Mild SHORTNESS Verified 04/10/21 21:50 OF BREATH ketchup [KETCHUP] Allergy Unknown RASH Verified 04/10/21 21:50 onion [ONION] Allergy Unknown RASH Verified 04/10/21 21:50 tomato [TOMATO] Allergy Unknown RASH Verified 04/10/21 21:50 Review of Systems Review of Systems: Pertinent positives and negatives as stated in HPI 10 point review of systems is otherwise negative. PMFSH Past Medical History Source: nursing notes reviewed Medical History Bipolar 1 disorder Personality disorder Transgender Social History Social History Alcohol intake: unknown Patient Tobacco Use Status: Never used Tobacco Substance Use Type: Crack/Cocaine Advance Directives: No Advance Directives Information Provided: Yes Physical Exam Vital Signs: Vital Signs: Last Vital Signs Temp 98.2 F 06/30/21 00:53 Pulse 68 06/30/21 00:53 Resp 18 06/30/21 00:53 BP 120/72 06/30/21 00:53 Pulse Ox 98 06/30/21 00:53 BMI result Body Mass Index 23.7 VITAL SIGNS: Reviewed. GENERAL: Well developed, well nourished, in no acute distress. HEAD: Normocephalic/atraumatic EYES: PERRLA, EOMI OROPHARYNX: no oral lesions noted, posterior pharynx clear, multiple dental caries NECK: Supple, no adenopathy LUNGS: Normal breath sounds. No adventitious sounds or accessory muscle use. SpO2<98> CARDIOVASCULAR: Regular rate and rhythm without noted murmurs ABDOMEN: Soft, non-tender, non-distended with bowel sounds. MUSCULOSKELETAL: No tenderness, deformities, or effusions noted on gross insp ection. EXTREMITIES: No cyanosis, clubbing or edema. SKIN: Inspection of the skin reveals no rashes NEUROLOGIC: Alert and oriented x 4. Strength and sensation to light touch were grossly intact x 4, cranial nerves 2-12 are grossly intact Course Course Course Narrative: 46-year-old patient with presentation for hearing voices and suicidal ideation as well as dental caries. Will start patient on a course of antibiotics for dental pain and patient is otherwise medically cleared for further evaluation by the crisis team. Reevaluation(s) Reevaluation #1: Patient placed in physician observation because the patient needed more time for evaluation by the crisis team. At the time observation was started the patient's vital signs were stable, patient is alert and oriented, neuro: Nonfocal, CV RRR, lungs clear Time: 02:19 [facility] - Psych Lab Data Labs: Lab Results 06/30/21 Range/Units 01:38 COVID-19 ([place]) Negative (Negative) COVID-19 Clin Com See Note Discharge Plan Discharge Clinical Impression: Bipolar disorder, Suicidal ideation, Auditory hallucination, Infected dental caries Patient Disposition: Still a Patient Prescriptions: No Action prazosin 1 mg capsule 1 cap PO BEDTIME 0RF lithium carbonate 600 mg capsule 1 cap PO BID 0RF quetiapine 50 mg tablet 1 tab PO BEDTIME 0RF
[2021-06-30] MEDS: Amoxicillin/Potassium Clav 875 MG TABLET PO (03:09)
--- NOTE | 2021-06-30 03:34 | PC.NURSE ---
Augmentin administered as ordered for dental infection, patient compliant.
--- NOTE | 2021-06-30 07:14 | PC.NURSE ---
Patient slept through the night, no distress observed/reported, [facility]N referral completed/confirmed/pending evaluation/care team aware, pending urine sample, VSS, will continue to monitor
[2021-06-30 08:02] LABS: Appearance Urine CLEAR; Color Urine YELLOW; Glucose Urine UA NEG (NEG); Leukocyte Esterase Urine NEG (NEG); Nitrite Urine NEG (NEG); PH 5.5 (5.0-8.0); Specific Gravity - Urine 1.025 (1.005-1.025); Urine Blood NEG (NEG); Urine Ketones NEG (NEG); Urine Protein NEG (NEG-TRACE)
[2021-06-30 08:20] LABS: Amphetamine Screen Urine Not Detected (Not Detect); Barbiturates, Urine Not Detected (Not Detect); Benzodiazepines Screen Urine Not Detected (Not Detect); Cannabinoid Screen Urine Not Detected (Not Detect); Cocaine Screen Urine POSITIVE (Not Detect); Fentanyl, urine Not Detected (Not Detect); Opiate Screen Urine Not Detected (Not Detect); Phencyclidine Screen Urine Not Detected (Not Detect)
--- NOTE | 2021-06-30 08:52 | PC.NURSE ---
PT REQUESTING TO LEAVE. DENIES SI/HI.
--- NOTE | 2021-06-30 09:43 | MHC.CARE ---
Risk assessment: Pt is denying current SI/HI/AH/VH. Pt is requesting to be discharged. Pt is known to [facility]. Plan for Pt to follow up with current providers. Pt provided with crisis information.
== END 2021-06-30 08:52 | disposition home or self-care (01) ==
PROVIDERS: Emergency Provider Student in an Organized Health Care Education/Training Program
DX: F31.9 Bipolar disorder, unspecified (principal); R45.851 Suicidal ideations; R44.0 Auditory hallucinations; K02.9 Dental caries, unspecified; K08.89 Other specified disorders of teeth and supporting structures; K12.2 Cellulitis and abscess of mouth; Z20.822 Contact with and (suspected) exposure to COVID-19; F14.90 Cocaine use, unspecified, uncomplicated; F60.9 Personality disorder, unspecified; F64.0 Transsexualism; Z79.899 Other long term (current) drug therapy
CPT/HCPCS: 80307; 81003; 87635; 99284

== ENCOUNTER 2021-07-03 03:10 | Emergency (ER) | payer MEDICAID, SELFPAY ==
[2021-07-03 03:19] VITALS: BP 118/64; PULSE 52; RESP 15; TEMP 36.4; O2SAT 100; BMI 25.1
--- NOTE | 2021-07-03 04:55 | ED_ITS ---
HPI - Psych General Chief Complaint: Psychiatric Symptoms Stated Complaint: Attempted SI Time Seen by Provider: 07/03/21 03:40 Source: patient Mode of arrival: ambulatory History of Present Illness HPI Narrative: 36-year-old male who states that he was going to inject himself with a lethal dose of insulin that he obtained from his father's medications but states that his brother stopped him. Patient states he has been dealing with increasing voices as well as visual hallucinations and states that he still feels like he wants to kill himself. Related Data Home Medications Medication Instructions Recorded Confirmed prazosin 1 mg capsule 1 cap PO BEDTIME 06/12/20 05/16/21 lithium carbonate 600 mg capsule 1 cap PO BID 05/16/21 05/16/21 quetiapine 50 mg tablet 1 tab PO BEDTIME 05/16/21 05/16/21 Previous Rx's Medication Instructions Recorded amoxicillin 875 mg-potassium 1 tab PO Q12H #14 tab 06/30/21 clavulanate 125 mg tablet ibuprofen 600 mg tablet 600 mg PO Q8H PRN #20 tab 06/30/21 tramadol 50 mg tablet 50 mg PO Q8H PRN #6 tab 06/30/21 Allergies Allergy/AdvReac Type Severity Reaction Status Date / Time nicotine [From NICODERM CQ] Allergy Mild SHORTNESS Verified 04/10/21 21:50 OF BREATH ketchup [KETCHUP] Allergy Unknown RASH Verified 04/10/21 21:50 onion [ONION] Allergy Unknown RASH Verified 04/10/21 21:50 tomato [TOMATO] Allergy Unknown RASH Verified 04/10/21 21:50 Review of Systems Review of Systems: Pertinent positives and negatives as stated in HPI 10 point review of systems is otherwise negative. [facility] Past Medical History Source: nursing notes reviewed Medical History Bipolar 1 disorder Personality disorder Transgender Social History Social History Alcohol intake: current Alcohol intake frequency: 0-2 drinks per day Alcohol type: hard liquor Patient Tobacco Use Status: Never used Tobacco Use of substances other than those prescribed or required for medical reasons: Unknown Substance Use Type: Crack/Cocaine Advance Directives: No Physical Exam Vital Signs: Vital Signs: Last Vital Signs Temp 97.5 F 07/03/21 03:19 Pulse 52 04/03/22 03:19 Resp 15 07/03/21 03:19 BP 118/64 07/03/21 03:19 Pulse Ox 100 07/03/21 03:19 BMI result Body Mass Index 25.1 VITAL SIGNS: Reviewed. GENERAL: Well developed, well nourished, in no acute distress. HEAD: Normocephalic/atraumatic EYES: PERRLA, EOMI EARS: Ext canals without abnormality OROPHARYNX: no oral lesions noted, posterior pharynx clear LUNGS: Normal breath sounds. No adventitious sounds or accessory muscle use. SpO2<100> CARDIOVASCULAR: Regular rate and rhythm without noted murmurs ABDOMEN: Soft, non-tender, non-distended with bowel sounds. MUSCULOSKELETAL: No tenderness, deformities, or effusions noted on gross inspection. EXTREMITIES: No cyanosis, clubbing or edema, small skin prick at base of right thumb. SKIN: Inspection of the skin reveals no rashes NEUROLOGIC: Alert and oriented x 4. Strength and sensation to light touch were grossly intact x 4. Course Course Course Narrative: 46-year-old patient who presents with AVH and suicide attempt and suicidal ideation. Patient is otherwise medically cleared for further evaluation by the crisis team. Reevaluation(s) Reevaluation #1: Patient placed in physician observation because the patient needed more time for evaluation by the crisis team. At the time observation was started the patient's vital signs were stable, patient is alert and oriented, neuro: Nonfocal, CV RRR, lungs clear Time: 05:50 [facility]DM - Psych Lab Data Labs: Lab Results 07/03/21 07/03/21 Range/Units 04:41 04:41 Ethyl Alcohol < 10 mg/dL COVID-19 ([place]) Negative (Negative) COVID-19 Clin Com See Note Discharge Plan Discharge Clinical Impression: Bipolar disorder, Suicidal ideation, Suicide attempt Patient Disposition: Still a Patient Prescriptions: No Action prazosin 1 mg capsule 1 cap PO BEDTIME 0RF lithium carbonate 600 mg capsule 1 cap PO BID 0RF quetiapine 50 mg tablet 1 tab PO BEDTIME 0RF ibuprofen 600 mg tablet 600 mg PO Q8H PRN (Reason: pain) Qty: 20 0RF amoxicillin-pot clavulanate 875-125 mg tablet 1 tab PO Q12H Qty: 14 0RF tramadol 50 mg tablet 50 mg PO Q8H PRN (Reason: severe pain (scale score 7-10)) Qty: 6 0RF
[2021-07-03 05:05] LABS: COVID-19 Test Negative (Negative)
[2021-07-03 05:10] LABS: Ethanol < 10 mg/dL
[2021-07-03 07:24] VITALS: BP 93/52; PULSE 53; RESP 16; TEMP 36.4; O2SAT 96
[2021-07-03 08:12] LABS: Amphetamine Screen Urine Not Detected (Not Detect); Barbiturates, Urine Not Detected (Not Detect); Benzodiazepines Screen Urine Not Detected (Not Detect); Cannabinoid Screen Urine Not Detected (Not Detect); Cocaine Screen Urine POSITIVE (Not Detect); Fentanyl, urine Not Detected (Not Detect); Opiate Screen Urine Not Detected (Not Detect); Phencyclidine Screen Urine Not Detected (Not Detect)
--- NOTE | 2021-07-03 13:04 | MHC.CARE ---
Risk Assessment: Pt is in the ED on voluntary basis for SI which Pt experiences at baseline. Pt is not necessitating an IPLOC admissions at this time . Pt will be held for follow up unless, Pt request to discharge prior Pt is clinically appropriate to do so. CARE Team consulted with SCAR Calderon regarding plan of care.
[2021-07-03] MEDS: traMADoL HCL 50 MG TABLET PO (16:43)
[2021-07-03] MEDS: oxyCODONE HCl Immed Release 5 MG TABLET PO (18:10)
[2021-07-03] MEDS: Amoxicillin/Potassium Clav 875 MG TABLET PO (19:08)
[2021-07-03] MEDS: QUEtiapine Fumarate 50 MG TABLET PO (20:52)
[2021-07-03] MEDS: Ondansetron ODT 4 MG TAB.RAPDIS TRANSLINGU (20:52)
[2021-07-03] MEDS: diphenhydrAMINE HCL 25 MG TABLET PO (20:53)
[2021-07-03] MEDS: Lithium Carbonate 300 MG CAPSULE 600 MG PO (20:53)
--- NOTE | 2021-07-03 21:24 | MHC.CARE ---
CARE team met with the pt to check in. She shared that she is feeling scared because she has been hearing the voice of her mother, who has been since 07/02/1989. The pt reported that she struggles every year around this time, but usually doesn't experience auditory hallucinations. While the hallucinations are command in nature, the pt denied having an active urge to harm herself or end her life. Current plan is to support pt in following up with [facility] in [place] re: bed availability in the morning. ED provider updated re: plan of care.
[2021-07-04 06:33] VITALS: RESP 18
--- NOTE | 2021-07-04 07:12 | PC.NURSE ---
Patient had some difficulty falling sleep, overall slept well, visits nurses station frequently with multiple needs, per care team patient can be discharged if patient ask for discharge, no disposition established at this time, medication compliant, patient is asymptomatic bradycardia, will continue to monitor.
[2021-07-04] MEDS: Amoxicillin/Potassium Clav 875 MG TABLET PO (07:34)
[2021-07-04] MEDS: Lithium Carbonate 300 MG CAPSULE 600 MG PO (07:39)
--- NOTE | 2021-07-04 09:22 | PC.NURSE ---
Pt is awake, calm and cooperative this morning. Medicated as per MAR orders. States he did not sleep well last night and continues to sleep this morning.
[2021-07-04] MEDS: traMADoL HCL 50 MG TABLET PO (12:10)
== END 2021-07-04 13:51 | disposition home or self-care (01) ==
PROVIDERS: Emergency Provider Student in an Organized Health Care Education/Training Program
DX: F33.1 Major depressive disorder, recurrent, moderate (principal); R45.851 Suicidal ideations; Z79.899 Other long term (current) drug therapy; Z79.4 Long term (current) use of insulin; Z20.822 Contact with and (suspected) exposure to COVID-19
CPT/HCPCS: 80307; 82077; 87635; 99285; Q0163

== ENCOUNTER 2021-07-10 23:02 | Emergency (ER) | payer MEDICAID, SELFPAY ==
--- NOTE | ~2021-07-10 | XR_ITS ---
EXAMINATION: XR FOOT, LEFT CLINICAL INFORMATION: Great toe pain COMPARISON: 05/16/2021 TECHNIQUE: AP, lateral, and oblique views of the left foot. FINDINGS: Osseous alignment is anatomic. No acute fracture is seen. Redemonstrated mild to moderate degenerative change at the first MTP joint with some associated soft tissue swelling. Flattened contour deformity of the head of the second metatarsal is redemonstrated. Posterior and plantar calcaneal spurring noted. XR/XR foot LT 2V IMPRESSION: No acute osseous findings identified. Redemonstrated degenerative change at the first MTP joint with soft tissue swelling.
--- NOTE | ~2021-07-10 | XR_ITS ---
EXAMINATION: XR CHEST CLINICAL INFORMATION: Elevated white blood cell count COMPARISON: 05/26/2011 TECHNIQUE: Frontal view of the chest was obtained. FINDINGS: Lung volumes are symmetric. Minimal patchy right basilar opacity is suspected. No evidence of pneumothorax, pleural effusion, or overt pulmonary edema. The cardiomediastinal contour is unremarkable. No acute osseous findings are seen. XR/XR chest 1V IMPRESSION: Minimal patchy right basilar opacity which may reflect developing consolidation in the proper clinical setting. Short-term radiographic follow-up would be helpful.
[2021-07-10 23:12] VITALS: BP 125/77; PULSE 69; RESP 16; TEMP 37.1; O2SAT 99; BMI 25.1
[2021-07-11 00:06] LABS: Basophils Absolute Auto 0.1 X10*3/uL (0.0-0.2); Basophils Percent Auto 0.5 % (0-2); Eosinophils Absolute Auto 0.3 X10*3/uL (0.0-0.4); Eosinophils Percent Auto 2.1 % (0-4); Hematocrit 40.4 % (42.0-52.0); Hemoglobin 14.1 g/dl (14.0-18.0); Imm Gran Abs Auto 0.06 X10*3/uL (0.00-0.03); Imm Gran Pct Auto 0.5 % (0.0-0.4); Lymphocytes Absolute Auto 2.2 X10*3/uL (1.2-4.9); Lymphocytes Percent Auto 16.6 % (20-40); MANUAL DIFF FLAG NO; Mean Corpuscular HGB Conc 34.9 g/dl (31.0-36.0); Mean Corpuscular Hemoglobin 31.3 pg (27.0-33.0); Mean Corpuscular Volume 89.6 fL (80.0-98.0); Monocytes Absolute Auto 1.3 X10*3/uL (0.1-1.2); Monocytes Percent Auto 9.8 % (2-11); Neutrophils Absolute Auto 9.2 x10*3/uL (2.0-8.3); Neutrophils Percent Auto 70.5 % (45-73); Platelet Count 237 X10*3/uL (160-400); Red Blood Count 4.51 X10*6/uL (4.60-5.80); Red Cell Distribution Width 11.9 % (11.0-16.0); White Blood Count 13.1 X10*3/uL (4.8-10.8)
[2021-07-11 00:07] LABS: COVID-19 Test Negative (Negative)
[2021-07-11 00:08] LABS: Amphetamine Screen Urine Not Detected (Not Detect); Barbiturates, Urine Not Detected (Not Detect); Benzodiazepines Screen Urine Not Detected (Not Detect); Cannabinoid Screen Urine Not Detected (Not Detect); Cocaine Screen Urine POSITIVE (Not Detect); Fentanyl, urine Not Detected (Not Detect); Opiate Screen Urine Not Detected (Not Detect); Phencyclidine Screen Urine Not Detected (Not Detect)
--- NOTE | 2021-07-11 00:22 | ED.PSYCH ---
HPI - Psych General Chief Complaint: Psychiatric Symptoms Stated Complaint: Crisis - SI Time Seen by Provider: 07/11/21 00:22 Source: patient Mode of arrival: ambulatory Limitations: no limitations History of Present Illness HPI Narrative: This is a 46-year-old transgender female past medical history of bipolar disorder, anxiety, depression presenting to the emergency department with complaints of left great toe pain x1 day and suicidal ideation x1 day. Patient tells made that she decided to come into the hospital today because she jumped off a high bridge and landed on her feet and she is now experiencing left great toe pain. She walked into the emergency department and is ambulating with steady gait. She tells me that she jumped off the bridge because she wanted to . Patient denies homicidal ideation. She denies visual, auditory and tactile hallucinations. She denies drugs, alcohol and tobacco. She denies any medical complaints at this time. Denies knee pain, hip pain, numbness, tingling, headache, dizziness, vision changes. MD complaint: suicidal ideation, feels depressed and anxiety Onset (ago): day(s) (1) Duration: constant History of same: Yes Relieving factors: none Exacerbating factors: none Associated psychiatric symptoms: none Associated symptoms: denies other symptoms Treatments prior to arrival: none If self harm: admits thoughts of self harm Related Data Home Medications Medication Instructions Recorded Confirmed prazosin 1 mg capsule 1 cap PO BEDTIME 06/12/20 07/10/21 lithium carbonate 600 mg capsule 1 cap PO BID 05/16/21 07/10/21 quetiapine 50 mg tablet 1 tab PO BEDTIME 05/16/21 07/10/21 Previous Rx's Medication Instructions Recorded ibuprofen 600 mg tablet 600 mg PO Q8H PRN #20 tab 06/30/21 doxycycline hyclate 100 mg capsule 100 mg PO BID 7 Days #14 cap 07/11/21 Allergies Allergy/AdvReac Type Severity Reaction Status Date / Time nicotine [From NICODERM CQ] Allergy Mild SHORTNESS Verified 04/10/21 21:50 OF BREATH ketchup [KETCHUP] Allergy Unknown RASH Verified 04/10/21 21:50 onion [ONION] Allergy Unknown RASH Verified 04/10/21 21:50 tomato [TOMATO] Allergy Unknown RASH Verified 04/10/21 21:50 Review of Systems Review of Systems: Constitutional : No Fever, No Chills ENT/Mouth : No Ear Pain, No Nasal Congestion, No sore throat Eyes: No Eye Pain, No Swelling, No Redness Cardiovascular : No Chest Pain, No SOB Respiratory : No Cough, No Sputum, No Dyspnea Gastrointestinal : No Nausea, No Vomiting, No Diarrhea, No Hematochezia, No Melena Genitourinary : No Dysuria, No Urinary Frequency, No Hematuria Musculoskeletal : No Myalgias Skin : No Skin Lesions, No rash Neuro : No Weakness, No Numbness, No Paresthesias, No Dizziness, No Headache Psych : positive Anxiety, positive Depression, positive SI/HI All other systems reviewed and are negative Yes all other systems are reviewed and are negative [facility] Past Medical History Attestation statement: The following information was validated with the patient. Source: old records reviewed and nursing notes reviewed Medical History Bipolar 1 disorder Personality disorder Transgender Social History Social History Alcohol intake: current Alcohol intake frequency: 0-2 drinks per day Alcohol type: hard liquor Patient Tobacco Use Status: Never used Tobacco Substance Use Type: Crack/Cocaine Advance Directives: No Advance Directives Information Provided: No Physical Exam Vital Signs: Vital Signs: Last Vital Signs Temp 98.7 F 07/10/21 23:12 Pulse 69 07/10/21 23:12 Resp 16 07/10/21 23:12 BP 125/77 07/10/21 23:12 Pulse Ox 99 07/10/21 23:12 BMI result Body Mass Index 25.1 VSS Appearance: Alert.? Oriented X3.? No acute distress.? Head: Normocephalic, atraumatic, no step-offs or deformities Eyes: Pupils equal, round and reactive to light.? ENT: Pharynx normal.? Neck: Normal inspection.? Neck supple.? CVS: Normal heart rate and rhythm.? Pulses normal.? Respiratory: No respiratory distress.? Breath sounds normal.? Abdomen: Soft and nontender.? Skin: Skin warm and dry.? Normal skin color.? Normal skin turgor.? Extremities: No lower extremity edema.? No calf ttp. 5/5 strength to bilateral upper and lower extremities Bilateral great toes with full range of motion no overlying skin changes, no gross abnormalities. Back: No midline tenderness, no C-spine tenderness, full range of motion, no CVA tenderness bilaterally Neuro: Oriented X 3.? No motor deficit.? No sensory deficit. CN 2-12 intact Course Reevaluation(s) Reevaluation #1: States she is having left great toe pain but refuses xray at this time. Time: 00:20 Reevaluation #2: Patient noted to have a slight leukocytosis however denies cough, shortness of breath, fevers, chills, nausea, vomiting. This could be reactive. BUN slightly elevated however patient tolerating fluids by mouth. Urine toxicology positive for cocaine. COVID negative. UA pending. Chest x-ray pending an x-ray of the left great toe pending. Time: 00:45 Reevaluation #3: Patient poor historian very vague about whether not she is having upper respiratory infection. However she does have an elevated white blood cell count and there is evidence of possible consolidation on x-ray. For this reason patient will be treated with doxycycline. She will be given her 1st dose here 100 mg by mouth now. And will be discharged home with the remaining amount necessary. Patient is saturating 99% on room air. No use of accessory muscles for breathing. Patient history and physical examination limited due to patient being a poor historian. At this time patient will be placed in physician observation to allow more time to be evaluated by the behavioral health team. at time observation was started patient, cooperative. No acute distress. Vital signs stable. Will continue to monitor. Time: 02:14 MDM - Psych MDM Narrative Medical decision making narrative: 0000 46 yo transgender female presents w/ left great toe pain and SI PE benign. Ambulting w/ steady gait. Neuro nonfocal. Plan- medical clearance, labs, ethanol, hong, [facility] Medical Records Attestation: I reviewed the patient's medical records. Lab Data Attestation: I reviewed the patient's lab results. Result diagrams: 07/10/21 23:55 07/10/21 23:55 Labs: Lab Results 07/10/21 07/10/21 07/10/21 Range/Units 23:44 23:44 23:44 WBC (4.8-10.8) X10*3/uL RBC (4.60-5.80) X10*6/uL Hgb (14.0-18.0) g/dl Hct (42.0-52.0) % MCV (80.0-98.0) fL MCH (27.0-33.0) pg MCHC (31.0-36.0) g/dl RDW (11.0-16.0) % Plt Count (160-400) X10*3/uL MPV (9.4-12.4) fL Immature Gran % (Auto) (0.0-0.4) % Neut % (Auto) (45-73) % Lymph % (Auto) (20-40) % Power % (Auto) (2-11) % Eos % (Auto) (0-4) % Baso % (Auto) (0-2) % Lymph # (Auto) (1.2-4.9) X10*3/uL Power # (Auto) (0.1-1.2) X10*3/uL Eos # (Auto) (0.0-0.4) X10*3/uL Baso # (Auto) (0.0-0.2) X10*3/uL Abs Immat Gran (auto) (0.00-0.03) X10*3/uL Absolute Neuts (auto) (2.0-8.3) x10*3/uL Absolute Nucleated RBC (0.0-0.012) X10*3/uL Nucleated RBC % (auto) (0.0-0.2) /100WBC Sodium (135-145) mmol/L Potassium (3.3-5.1) mmol/L Chloride (96-108) mmol/L Carbon Dioxide (22-29) mmol/L Anion Gap (12-20) BUN (9-16) mg/dL Creatinine (0.5-1.4) mg/dL Estim Creat Clear Calc Estimated GFR Random Glucose (60-115) mg/dL Calcium (8.4-10.2) mg/dL Urine Color YELLOW Urine Appearance CLEAR Urine pH 7.0 (5.0-8.0) Ur Specific [place] 1.025 (1.005-1.025) Urine Protein NEG (NEG-TRACE) MG/DL Urine Glucose (UA) NEG (NEG) MG/DL Urine Ketones NEG (NEG) MG/DL Urine Blood NEG (NEG) Urine Nitrite NEG (NEG) Ur Leukocyte Esterase NEG (NEG) Urine Opiates Screen Not Detected (Not Detect) Urine Fentanyl Screen Not Detected (Not Detect) Ur Barbiturates Screen Not Detected (Not Detect) Ur Phencyclidine Scrn Not Detected (Not Detect) Ur Amphetamines Screen Not Detected (Not Detect) U Benzodiazepines Scrn Not Detected (Not Detect) [place] (0.60-1.20) mmol/L Urine Cocaine Screen POSITIVE H (Not Detect) U Marijuana (THC) Screen Not Detected (Not Detect) COVID-19 ([place]) Negative (Negative) COVID-19 Clin Com See Note 07/10/21 07/10/21 07/11/21 Range/Units 23:55 23:55 00:23 WBC 13.1 H (4.8-10.8) X10*3/uL RBC 4.51 L (4.60-5.80) X10*6/uL Hgb 14.1 (14.0-18.0) g/dl Hct 40.4 L (42.0-52.0) % MCV 89.6 (80.0-98.0) fL MCH 31.3 (27.0-33.0) pg MCHC 34.9 (31.0-36.0) g/dl RDW 11.9 (11.0-16.0) % Plt Count 237 (160-400) X10*3/uL MPV 10.0 (9.4-12.4) fL Immature Gran % (Auto) 0.5 H (0.0-0.4) % Neut % (Auto) 70.5 (45-73) % Lymph % (Auto) 16.6 L (20-40) % Power % (Auto) 9.8 (2-11) % Eos % (Auto) 2.1 (0-4) % Baso % (Auto) 0.5 (0-2) % Lymph # (Auto) 2.2 (1.2-4.9) X10*3/uL Power # (Auto) 1.3 H (0.1-1.2) X10*3/uL Eos # (Auto) 0.3 (0.0-0.4) X10*3/uL Baso # (Auto) 0.1 (0.0-0.2) X10*3/uL Abs Immat Gran (auto) 0.06 H (0.00-0.03) X10*3/uL Absolute Neuts (auto) 9.2 H (2.0-8.3) x10*3/uL Absolute Nucleated RBC 0.000 (0.0-0.012) X10*3/uL Nucleated RBC % (auto) 0.0 (0.0-0.2) /100WBC Sodium 138 (135-145) mmol/L Potassium 3.7 (3.3-5.1) mmol/L Chloride 105 (96-108) mmol/L Carbon Dioxide 26 (22-29) mmol/L Anion Gap 11 L (12-20) BUN 24 H D (9-16) mg/dL Creatinine 1.01 (0.5-1.4) mg/dL Estim Creat Clear Calc 98.3 Estimated GFR > 60 Random Glucose 68 (60-115) mg/dL Calcium 8.9 (8.4-10.2) mg/dL Urine Color Urine Appearance Urine pH (5.0-8.0) Ur Specific [place] (1.005-1.025) Urine Protein (NEG-TRACE) MG/DL Urine Glucose (UA) (NEG) MG/DL Urine Ketones (NEG) MG/DL Urine Blood (NEG) Urine Nitrite (NEG) Ur Leukocyte Esterase (NEG) Urine Opiates Screen (Not Detect) Urine Fentanyl Screen (Not Detect) Ur Barbiturates Screen (Not Detect) Ur Phencyclidine Scrn (Not Detect) Ur Amphetamines Screen (Not Detect) U Benzodiazepines Scrn (Not Detect) [place] < 0.10 L (0.60-1.20) mmol/L Urine Cocaine Screen (Not Detect) U Marijuana (THC) Screen (Not Detect) COVID-19 ([place]) (Negative) COVID-19 Clin Com Critical Care Time Critical Care Time Critical Care Time: No Discharge Plan Discharge Clinical Impression: Suicidal ideation, Bipolar disorder, Pneumonia Patient Disposition: Still a Patient Instructions: Bipolar Disorder (ED), Help Prevent Suicide (ED) Additional Instructions: I gave 1 dose of doxycycline here, please ensure patient gets discharged home with doxycycline p.o. b.i.d. for pneumonia. Prescriptions: New doxycycline hyclate 100 mg capsule 100 mg PO BID 7 Days Qty: 14 0RF No Action prazosin 1 mg capsule 1 cap PO BEDTIME 0RF lithium carbonate 600 mg capsule 1 cap PO BID 0RF quetiapine 50 mg tablet 1 tab PO BEDTIME 0RF ibuprofen 600 mg tablet 600 mg PO Q8H PRN (Reason: pain) Qty: 20 0RF Referrals: Physician,Unknown J [Primary Care Provider] -
[2021-07-11 00:27] LABS: Anion Gap 11 (12-20); Blood Urea Nitrogen 24 mg/dL (9-16); Calcium 8.9 mg/dL (8.4-10.2); Carbon Dioxide 26 mmol/L (22-29); Chloride 105 mmol/L (96-108); Creatinine Clr Calc Pharmacy 98.3; Estimated Glomerular Filt Rate > 60; Glucose Random 68 mg/dL (60-115); Potassium 3.7 mmol/L (3.3-5.1); Sodium 138 mmol/L (135-145)
--- NOTE | 2021-07-11 00:46 | PC.NURSE ---
Patient refused x-ray order, refused to see [facility] in the morning because of on going law suit per patient, care team made aware of the situation, charge nurse notified, patient will be moved to ED bed 6 [place] per charge nurse, will continue to monitor.
[2021-07-11 00:50] LABS: Lithium < 0.10 mmol/L (0.60-1.20)
[2021-07-11 00:51] LABS: Appearance Urine CLEAR; Color Urine YELLOW; Glucose Urine UA NEG (NEG); Leukocyte Esterase Urine NEG (NEG); Nitrite Urine NEG (NEG); Specific Gravity - Urine 1.025 (1.005-1.025); Urine Blood NEG (NEG); Urine Ketones NEG (NEG); Urine Protein NEG (NEG-TRACE)
--- NOTE | 2021-07-11 02:05 | MHC.CARE ---
CARE team attempted to meet with pt for a crisis screening interview. Pt was difficult to rouse awake and she was unable to remain alert or oriented, thus was unable to participate in conversation. CARE team will follow up in the morning.
[2021-07-11 05:54] VITALS: BP 103/56; PULSE 58; RESP 16; TEMP 36.1; O2SAT 98
--- NOTE | 2021-07-11 06:38 | PC.NURSE ---
Pt resting on stretcher Easily arousable Pt tolerated medications Awaiting [facility] Will continue to monitor
[2021-07-11 09:00] VITALS: BP 106/53; PULSE 59; RESP 14; TEMP 36.9; O2SAT 98
[2021-07-11] MEDS: Lithium Carbonate 300 MG CAPSULE 600 MG PO (10:36)
--- NOTE | 2021-07-11 10:59 | PC.NURSE ---
pt reporting extreme pain in her feet reporting that she needs a cane to ambulate. informed pt there is no break or fracture as pt was curious on the results. pt also reporting having an infection in her teeth that has been ongoing for several months. ELSIE Carmen informed of pts request for cane, t/w suggest PT consult. no new orders at this time. ELSIE carmen also made aware of pts concern for oral infection, white count 13, pt on PO antibiotics.
== END 2021-07-11 13:03 | disposition home or self-care (01) ==
PROVIDERS: Physician Assistant; Emergency Provider Internal Medicine
DX: F31.9 Bipolar disorder, unspecified (principal); R45.851 Suicidal ideations; J18.9 Pneumonia, unspecified organism; R06.02 Shortness of breath; F41.1 Generalized anxiety disorder; F43.0 Acute stress reaction; M79.675 Pain in left toe(s); F14.90 Cocaine use, unspecified, uncomplicated; Z20.822 Contact with and (suspected) exposure to COVID-19; Z79.899 Other long term (current) drug therapy
CPT/HCPCS: 36415; 71045; 73620; 80048; 80178; 80307; 81003; 85025; 87635; 99284

== ENCOUNTER 2021-08-02 00:14 | Emergency (ER) | payer MEDICAID, SELFPAY ==
[2021-08-02 00:24] VITALS: BP 118/57; PULSE 53; RESP 17; TEMP 36.8; O2SAT 98; BMI 24.3
--- NOTE | 2021-08-02 00:34 | ED.PSYCH ---
HPI - Psych General Chief Complaint: Psychiatric Symptoms <ELSIE Muir Last Filed: 08/02/21 02:05> Stated Complaint: SI <ELSIE Muir Last Filed: 08/02/21 02:05> Time Seen by Provider: 08/02/21 00:34 <ELSIE Muir Last Filed: 08/02/21 02:05> Source: patient <ELSIE Muir Last Filed: 08/02/21 02:05> Mode of arrival: ambulatory <ELSIE Muir Last Filed: 08/02/21 02:05> Limitations: no limitations <ELSIE Muir Last Filed: 08/02/21 02:05> History of Present Illness HPI Narrative: ?46-year-old transgender female past medical history of bipolar disorder, anxiety, depression presenting to the emergency department with complaints of left great toe pain x1 day and suicidal ideation x1 day.? patient tells me that she decided to come into the hospital today because she felt like she wanted to jump off a bridge and he tells me that today she wanted to jump in front of a bus. She tells me she started feeling this way suddenly she walked out of her house and then thought to jump in front of the bus. she reports auditory hallucinations tells me that she hears voices mumbling things to her however she is unable to pinpoint with her telling her. Denies visual and tactile hallucinations. She denies drugs, alcohol and tobacco. She tells me she is taking all her medications as prescribed. She denies medical complaints at this time. <ELSIE Muir Last Filed: 08/02/21 02:05> MD complaint: suicidal ideation <ELSIE Muir Last Filed: 08/02/21 02:05> Onset (ago): day(s) (1) <ELSIE Muir Last Filed: 08/02/21 02:05> Duration: constant <ELSIE Muir Last Filed: 08/02/21 02:05> History of same: Yes <ELSIE Muir Last Filed: 08/02/21 02:05> Relieving factors: none <ELSIE Muir Last Filed: 08/02/21 02:05> Exacerbating factors: none <ELSIE Muir Last Filed: 08/02/21 02:05> Associated psychiatric symptoms: none <ELSIE Muir Last Filed: 08/02/21 02:05> Associated symptoms: denies other symptoms <ELSIE Muir Last Filed: 08/02/21 02:05> Treatments prior to arrival: none <ELSIE Muir Last Filed: 08/02/21 02:05> Related Data Home Medications: Home Medications Medication Instructions Recorded Confirmed prazosin 1 mg capsule 1 cap PO BEDTIME 06/12/20 08/02/21 lithium carbonate 600 mg capsule 1 cap PO BID 05/16/21 08/02/21 quetiapine 50 mg tablet 1 tab PO BEDTIME 05/16/21 08/02/21 Previous Rx's Medication Instructions Recorded ibuprofen 600 mg tablet 600 mg PO Q8H PRN #20 tab 06/30/21 <ELSIE Muir Last Filed: 08/02/21 02:05> Allergies/Adverse Reactions: Allergies Allergy/AdvReac Type Severity Reaction Status Date / Time nicotine [From [facility]] Allergy Mild SHORTNESS Verified 04/10/21 21:50 OF BREATH ketchup [KETCHUP] Allergy Unknown RASH Verified 04/10/21 21:50 onion [ONION] Allergy Unknown RASH Verified 04/10/21 21:50 tomato [TOMATO] Allergy Unknown RASH Verified 04/10/21 21:50 <ELSIE Muir Last Filed: 08/02/21 02:05> Review of Systems Review of Systems: Constitutional : No Fever, No Chills ENT/Mouth : No Ear Pain, No Nasal Congestion, No sore throat Eyes: No Eye Pain, No Swelling, No Redness Cardiovascular : No Chest Pain, No SOB Respiratory : No Cough, No Sputum, No Dyspnea Gastrointestinal : No Nausea, No Vomiting, No Diarrhea, No Hematochezia, No Melena Genitourinary : No Dysuria, No Urinary Frequency, No Hematuria Musculoskeletal : No Myalgias Skin : No Skin Lesions, No rash Neuro : No Weakness, No Numbness, No Paresthesias, No Dizziness, No Headache Psych : positive Anxiety, positive Depression, positive SI, No HI <ELSIE Muir - Last Filed: 08/02/21 02:05> [facility] Past Medical History Attestation statement: The following information was validated with the patient. <ELSIE Muir - Last Filed: 08/02/21 02:05> Source: old records reviewed <ELSIE Muir - Last Filed: 08/02/21 02:05> Medical History: Medical History Bipolar 1 disorder Personality disorder Transgender <ELSIE Muir Last Filed: 08/02/21 02:05> Social History Social History: Social History Alcohol intake: current Alcohol intake frequency: 0-2 drinks per day Alcohol type: hard liquor Patient Tobacco Use Status: Never used Tobacco Substance Use Type: Crack/Cocaine Advance Directives: No <ELSIE Muir - Last Filed: 08/02/21 02:05> Physical Exam Vital Signs: Vital Signs: Last Vital Signs Temp 98.3 F 08/02/21 00:24 Pulse 53 08/02/21 00:24 Resp 17 08/02/21 00:24 BP 118/57 L 08/02/21 00:24 Pulse Ox 98 08/02/21 00:24 BMI result Body Mass Index 24.3 Vital signs stable <ELSIE Muir - Last Filed: 08/02/21 02:05> Appearance: Alert.? Oriented X3.? No acute distress.? Head: Normocephalic, atraumatic, no step-offs or deformities Eyes: Pupils equal, round and reactive to light.? ENT: Pharynx normal.? Neck: Normal inspection.? Neck supple.? CVS: Normal heart rate and rhythm.? Pulses normal.? Respiratory: No respiratory distress.? Breath sounds normal.? Abdomen: Soft and nontender.? Skin: Skin warm and dry.? Normal skin color.? Normal skin turgor.? Extremities: No lower extremity edema.? No calf ttp. 5/5 strength to bilateral upper and lower extremities Back: No midline tenderness, no C-spine tenderness, full range of motion, no CVA tenderness bilaterally Neuro: Oriented X 3.? No motor deficit.? No sensory deficit. CN 2-12 intact <ELSIE Muir - Last Filed: 08/02/21 02:05> Course Reevaluation(s) Reevaluation #1: CBC appears to be around patient's baseline. Chemistry with no acute findings. Urine toxicology positive for cocaine. COVID negative. At this time patient will be placed in physician observation to allow more time to be evaluated by the behavioral health team. At time of observation was started patient common cooperative no acute distress. Vital signs are stable. Will continue to monitor. <ELSIE Muir - Last Filed: 08/02/21 02:05> Time: 02:04 <ELSIE Muir - Last Filed: 08/02/21 02:05> MDM - Psych MDM Narrative Medical decision making narrative: 0135 46-year-old female presents with suicidal ideation x1 day. Reports he tried to jump in front of a bus. Physical examination benign plan at this time medical clearance <ELSIE Muir - Last Filed: 08/02/21 02:05> Medical Records Attestation: I reviewed the patient's medical records. <ELSIE Muir - Last Filed: 08/02/21 02:05> Lab Data Attestation: I reviewed the patient's lab results. <ELSIE Muir Last Filed: 08/02/21 02:05> Result diagrams: : 08/02/21 01:16 08/02/21 01:16 <ELSIE Muir - Last Filed: 08/02/21 02:05> Labs: Lab Results 08/02/21 08/02/21 08/02/21 Range/Units 00:54 00:54 01:16 WBC (4.8-10.8) X10*3/uL RBC (4.60-5.80) X10*6/uL Hgb (14.0-18.0) g/dl Hct (42.0-52.0) % MCV (80.0-98.0) fL MCH (27.0-33.0) pg MCHC (31.0-36.0) g/dl RDW (11.0-16.0) % Plt Count (160-400) X10*3/uL MPV (9.4-12.4) fL Immature Gran % (Auto) (0.0-0.4) % Neut % (Auto) (45-73) % Lymph % (Auto) (20-40) % [place] % (Auto) (2-11) % Eos % (Auto) (0-4) % Baso % (Auto) (0-2) % Lymph # (Auto) (1.2-4.9) X10*3/uL [place] # (Auto) (0.1-1.2) X10*3/uL Eos # (Auto) (0.0-0.4) X10*3/uL Baso # (Auto) (0.0-0.2) X10*3/uL Abs Immat Gran (auto) (0.00-0.03) X10*3/uL Absolute Neuts (auto) (2.0-8.3) x10*3/uL Absolute Nucleated RBC (0.0-0.012) X10*3/uL Nucleated RBC % (auto) (0.0-0.2) /100WBC Sodium (135-145) mmol/L Potassium (3.3-5.1) mmol/L Chloride (96-108) mmol/L Carbon Dioxide (22-29) mmol/L Anion Gap (12-20) BUN (9-16) mg/dL Creatinine (0.5-1.4) mg/dL Estim Creat Clear Calc Estimated GFR Random Glucose (60-115) mg/dL Calcium (8.4-10.2) mg/dL Urine Opiates Screen Not Detected (Not Detect) Urine Fentanyl Screen Not Detected (Not Detect) Ur Barbiturates Screen Not Detected (Not Detect) Ur Phencyclidine Scrn Not Detected (Not Detect) Ur Amphetamines Screen Not Detected (Not Detect) U Benzodiazepines Scrn Not Detected (Not Detect) [place] < 0.10 L (0.60-1.20) mmol/L Urine Cocaine Screen POSITIVE H (Not Detect) U Marijuana (THC) Screen Not Detected (Not Detect) Ethyl Alcohol mg/dL COVID-19 ([place]) Negative (Negative) COVID-19 Clin Com See Note 08/02/21 08/02/21 08/02/21 Range/Units 01:16 01:16 01:16 WBC 9.7 (4.8-10.8) X10*3/uL RBC 4.31 L (4.60-5.80) X10*6/uL Hgb 13.3 L (14.0-18.0) g/dl Hct 38.7 L (42.0-52.0) % MCV 89.8 (80.0-98.0) fL MCH 30.9 (27.0-33.0) pg MCHC 34.4 (31.0-36.0) g/dl RDW 12.3 (11.0-16.0) % Plt Count 228 (160-400) X10*3/uL MPV 10.5 (9.4-12.4) fL Immature Gran % (Auto) 0.2 (0.0-0.4) % Neut % (Auto) 56.7 (45-73) % Lymph % (Auto) 30.4 (20-40) % [place] % (Auto) 9.5 (2-11) % Eos % (Auto) 2.6 (0-4) % Baso % (Auto) 0.6 (0-2) % Lymph # (Auto) 3.0 (1.2-4.9) X10*3/uL [place] # (Auto) 0.9 (0.1-1.2) X10*3/uL Eos # (Auto) 0.3 (0.0-0.4) X10*3/uL Baso # (Auto) 0.1 (0.0-0.2) X10*3/uL Abs Immat Gran (auto) 0.02 (0.00-0.03) X10*3/uL Absolute Neuts (auto) 5.5 (2.0-8.3) x10*3/uL Absolute Nucleated RBC 0.000 (0.0-0.012) X10*3/uL Nucleated RBC % (auto) 0.0 (0.0-0.2) /100WBC Sodium 139 (135-145) mmol/L Potassium 3.5 (3.3-5.1) mmol/L Chloride 107 (96-108) mmol/L Carbon Dioxide 24 (22-29) mmol/L Anion Gap 12 (12-20) BUN 20 H (9-16) mg/dL Creatinine 0.97 (0.5-1.4) mg/dL Estim Creat Clear Calc 99.2 Estimated GFR > 60 Random Glucose 126 H D (60-115) mg/dL Calcium 9.0 (8.4-10.2) mg/dL Urine Opiates Screen (Not Detect) Urine Fentanyl Screen (Not Detect) Ur Barbiturates Screen (Not Detect) Ur Phencyclidine Scrn (Not Detect) Ur Amphetamines Screen (Not Detect) U Benzodiazepines Scrn (Not Detect) [place] (0.60-1.20) mmol/L Urine Cocaine Screen (Not Detect) U Marijuana (THC) Screen (Not Detect) Ethyl Alcohol < 10 mg/dL COVID-19 ([place]) (Negative) COVID-19 Clin Com <ELSIE Muir - Last Filed: 08/02/21 02:05> Critical Care Time Critical Care Time Critical Care Time: No <ELSIE Muir - Last Filed: 08/02/21 02:05> Discharge Plan Discharge Clinical Impression: Suicidal ideation, Acute anxiety <ELSIE Muir - Last Filed: 08/02/21 02:05> Patient Disposition: Still a Patient <ELSIE Muir - Last Filed: 08/02/21 02:05> Prescriptions: No Action prazosin 1 mg capsule 1 cap PO BEDTIME 0RF lithium carbonate 600 mg capsule 1 cap PO BID 0RF quetiapine 50 mg tablet 1 tab PO BEDTIME 0RF ibuprofen 600 mg tablet 600 mg PO Q8H PRN (Reason: pain) Qty: 20 0RF <ELSIE Muir Last Filed: 08/02/21 02:05>
[2021-08-02 01:16] LABS: COVID-19 Test Negative (Negative); IDNOW Serial# 16C4AD1C
[2021-08-02 01:18] LABS: Amphetamine Screen Urine Not Detected (Not Detect); Barbiturates, Urine Not Detected (Not Detect); Benzodiazepines Screen Urine Not Detected (Not Detect); Cannabinoid Screen Urine Not Detected (Not Detect); Cocaine Screen Urine POSITIVE (Not Detect); Fentanyl, urine Not Detected (Not Detect); Opiate Screen Urine Not Detected (Not Detect); Phencyclidine Screen Urine Not Detected (Not Detect)
[2021-08-02 01:23] LABS: MANUAL DIFF FLAG NO
[2021-08-02 01:24] LABS: Basophils Absolute Auto 0.1 X10*3/uL (0.0-0.2); Basophils Percent Auto 0.6 % (0-2); Eosinophils Absolute Auto 0.3 X10*3/uL (0.0-0.4); Eosinophils Percent Auto 2.6 % (0-4); Hematocrit 38.7 % (42.0-52.0); Hemoglobin 13.3 g/dl (14.0-18.0); Imm Gran Abs Auto 0.02 X10*3/uL (0.00-0.03); Imm Gran Pct Auto 0.2 % (0.0-0.4); Lymphocytes Percent Auto 30.4 % (20-40); Mean Corpuscular HGB Conc 34.4 g/dl (31.0-36.0); Mean Corpuscular Hemoglobin 30.9 pg (27.0-33.0); Mean Corpuscular Volume 89.8 fL (80.0-98.0); Mean Platelet Volume 10.5 fL (9.4-12.4); Monocytes Absolute Auto 0.9 X10*3/uL (0.1-1.2); Monocytes Percent Auto 9.5 % (2-11); Neutrophils Absolute Auto 5.5 x10*3/uL (2.0-8.3); Neutrophils Percent Auto 56.7 % (45-73); Platelet Count 228 X10*3/uL (160-400); Red Blood Count 4.31 X10*6/uL (4.60-5.80); Red Cell Distribution Width 12.3 % (11.0-16.0); White Blood Count 9.7 X10*3/uL (4.8-10.8)
[2021-08-02 01:42] LABS: Lithium < 0.10 mmol/L (0.60-1.20)
[2021-08-02 01:44] LABS: Ethanol < 10 mg/dL
[2021-08-02 01:45] LABS: Anion Gap 12 (12-20); Blood Urea Nitrogen 20 mg/dL (9-16); Carbon Dioxide 24 mmol/L (22-29); Chloride 107 mmol/L (96-108); Creatinine Clr Calc Pharmacy 99.2; Estimated Glomerular Filt Rate > 60; Glucose Random 126 mg/dL (60-115); Potassium 3.5 mmol/L (3.3-5.1); Sodium 139 mmol/L (135-145)
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
--- NOTE | 2021-08-02 07:15 | PC.NURSE ---
patient appears to remain at rest at present, asking for snacks and a blanket, patient appears in no distress presently.
--- NOTE | 2021-08-02 09:53 | PHA.MEDREC ---
Pharmacy Consult ? Medication Reconciliation Pharmacy has completed the medication reconciliation.
--- NOTE | 2021-08-02 11:18 | MHC.CARE ---
This patient, a 46 year-old single transgender (M-F) woman who self-presented to [facility] ED last night for reported suicidal ideation. She is known to [facility] through multiple ED visits under similar circumstances and has never been sent to a psychiatric facility from here. CARE Team met with patient in 7, she was alert and oriented, stated she is feeling better and ready to discharge home. Reported that last night she called an ambulance from her new home in [facility] and requested transport to this hospital. Patient said she is transferring all of her providers to the [facility] in [place], has enough medication to last several months if necessary. At this time, she denied suicidal ideation, plan or intention and does not appear to be in crisis or having any psychotic symptoms and is not in need of an inpatient psychiatric admission. ED Provider Deborah Mejía NP and substation supervisor SCAR Calderon consulted and in agreement with plan to discharge home.
== END 2021-08-02 12:01 | disposition home or self-care (01) ==
PROVIDERS: Physician Assistant; Emergency Provider Emergency Medicine
DX: F33.1 Major depressive disorder, recurrent, moderate (principal); R45.851 Suicidal ideations; F41.1 Generalized anxiety disorder; F43.0 Acute stress reaction; Z20.822 Contact with and (suspected) exposure to COVID-19; Z79.899 Other long term (current) drug therapy
CPT/HCPCS: 36415; 80048; 80178; 80307; 82077; 85025; 87635; 99284

== ENCOUNTER 2021-09-09 23:33 | Emergency (ER) | payer MEDICAID, SELFPAY ==
[2021-09-09 23:49] VITALS: BP 99/58; PULSE 60; RESP 18; TEMP 36.8; O2SAT 96; BMI 22.1
[2021-09-10 00:06] LABS: MANUAL DIFF FLAG NO
[2021-09-10 00:07] LABS: Basophils Absolute Auto 0.1 X10*3/uL (0.0-0.2); Basophils Percent Auto 0.6 % (0-2); Eosinophils Absolute Auto 0.3 X10*3/uL (0.0-0.4); Eosinophils Percent Auto 2.5 % (0-4); Hematocrit 40.5 % (42.0-52.0); Hemoglobin 13.9 g/dl (14.0-18.0); Imm Gran Abs Auto 0.03 X10*3/uL (0.00-0.03); Imm Gran Pct Auto 0.3 % (0.0-0.4); Lymphocytes Percent Auto 29.6 % (20-40); Mean Corpuscular HGB Conc 34.3 g/dl (31.0-36.0); Mean Corpuscular Hemoglobin 30.3 pg (27.0-33.0); Mean Corpuscular Volume 88.2 fL (80.0-98.0); Mean Platelet Volume 10.1 fL (9.4-12.4); Monocytes Absolute Auto 0.9 X10*3/uL (0.1-1.2); Monocytes Percent Auto 8.5 % (2-11); Neutrophils Absolute Auto 5.8 x10*3/uL (2.0-8.3); Neutrophils Percent Auto 58.5 % (45-73); Platelet Count 243 X10*3/uL (160-400); Red Blood Count 4.59 X10*6/uL (4.60-5.80); Red Cell Distribution Width 12.5 % (11.0-16.0)
[2021-09-10 00:23] LABS: Alanine Aminotransferase 15 U/L (0-40); Albumin Level 3.9 g/dL (3.5-5.0); Alkaline Phosphatase 67 U/L (39-117); Anion Gap 12 (12-20); Aspartate Amino Transferase 16 U/L (5-37); Bilirubin Direct 0.4 mg/dL (0.0-0.5); Blood Urea Nitrogen 19 mg/dL (9-16); Carbon Dioxide 25 mmol/L (22-29); Chloride 108 mmol/L (96-108); Creatinine Clr Calc Pharmacy 114.4; Estimated Glomerular Filt Rate > 60; Glucose Random 109 mg/dL (60-115); Potassium 3.8 mmol/L (3.3-5.1); Sodium 141 mmol/L (135-145); Total Protein 6.4 g/dL (6.5-8.0)
[2021-09-10 00:33] LABS: COVID-19 Test Negative (Negative)
[2021-09-10 04:21] LABS: Amphetamine Screen Urine Not Detected (Not Detect); Barbiturates, Urine Not Detected (Not Detect); Benzodiazepines Screen Urine Not Detected (Not Detect); Cannabinoid Screen Urine Not Detected (Not Detect); Cocaine Screen Urine POSITIVE (Not Detect); Fentanyl, urine Not Detected (Not Detect); Opiate Screen Urine Not Detected (Not Detect); Phencyclidine Screen Urine Not Detected (Not Detect)
--- NOTE | 2021-09-10 05:33 | ED.PSYCH ---
HPI - Psych General Chief Complaint: Psychiatric Symptoms Stated Complaint: SI Time Seen by Provider: 09/09/21 23:39 History of Present Illness HPI Narrative: Patient is a 46-year-old male presents today with having suicidal ideation. Patient unable to provide a specific plan. Feels very depressed not taking his medications. Patient refused to answer specific questions Related Data Home Medications Medication Instructions Recorded Confirmed prazosin 1 mg capsule 1 cap PO BEDTIME 06/12/20 08/02/21 lithium carbonate 600 mg capsule 1 cap PO BID 05/16/21 08/02/21 quetiapine 50 mg tablet 1 tab PO BEDTIME PRN Anxiety 05/16/21 08/02/21 Allergies Allergy/AdvReac Type Severity Reaction Status Date / Time nicotine [From [facility]] Allergy Mild SHORTNESS Verified 04/10/21 21:50 OF BREATH ketchup [KETCHUP] Allergy Unknown RASH Verified 04/10/21 21:50 onion [ONION] Allergy Unknown RASH Verified 04/10/21 21:50 tomato [TOMATO] Allergy Unknown RASH Verified 04/10/21 21:50 Review of Systems Review of Systems: Unable to obtain review system 2nd patient's noncompliance Yes all other systems are reviewed and are negative [facility] Past Medical History Medical History Bipolar 1 disorder Personality disorder Transgender Social History Social History Alcohol intake: current Alcohol intake frequency: 0-2 drinks per day Alcohol type: hard liquor Patient Tobacco Use Status: Never used Tobacco Substance Use Type: Crack/Cocaine Advance Directives: No Advance Directives Information Provided: No Physical Exam Vital Signs: Vital Signs: Last Vital Signs Temp 98.3 F 09/09/21 23:49 Pulse 60 09/09/21 23:49 Resp 18 09/09/21 23:49 BP 99/58 L 09/09/21 23:49 Pulse Ox 96 09/09/21 23:49 O2 Del Method 09/09/21 23:49 BMI result Body Mass Index 22.1 Appearance: Alert. No acute distress. Eyes: Pupils equal, round and reactive to light. ENT: Pharynx normal. Neck: Normal inspection. Neck supple. No lymph nodes noted. No crepitus CVS: Normal heart rate and rhythm. Pulses normal. Normal S1 and S2 Respiratory: No respiratory distress. Breath sounds normal. No Wheezing. No rales Abdomen: Soft and nontender. No rigidity. No distention. good BS x4 Skin: Skin warm and dry. Normal skin color. Normal skin turgor. Extremities: No lower extremity edema. Neurovascular intact to all extremities. No Lacerations. No Rash Neuro: No motor deficit. No sensory deficit. Moving all extermities. No slurred speech. Cranial nerves grossly intact MDM - Psych MDM Narrative Medical decision making narrative: Awaiting final disposition as per crisis. currently medically cleared Medical Records Attestation: I reviewed the patient's medical records. Lab Data Attestation: I reviewed the patient's lab results. Result diagrams: 09/09/21 23:53 09/09/21 23:53 Labs: Lab Results 09/09/21 09/09/21 09/09/21 Range/Units 23:53 23:53 23:53 WBC 10.0 (4.8-10.8) X10*3/uL RBC 4.59 L (4.60-5.80) X10*6/uL Hgb 13.9 L (14.0-18.0) g/dl Hct 40.5 L (42.0-52.0) % MCV 88.2 (80.0-98.0) fL MCH 30.3 (27.0-33.0) pg MCHC 34.3 (31.0-36.0) g/dl RDW 12.5 (11.0-16.0) % Plt Count 243 (160-400) X10*3/uL MPV 10.1 (9.4-12.4) fL Immature Gran % (Auto) 0.3 (0.0-0.4) % Neut % (Auto) 58.5 (45-73) % Lymph % (Auto) 29.6 (20-40) % [place] % (Auto) 8.5 (2-11) % Eos % (Auto) 2.5 (0-4) % Baso % (Auto) 0.6 (0-2) % Lymph # (Auto) 3.0 (1.2-4.9) X10*3/uL [place] # (Auto) 0.9 (0.1-1.2) X10*3/uL Eos # (Auto) 0.3 (0.0-0.4) X10*3/uL Baso # (Auto) 0.1 (0.0-0.2) X10*3/uL Abs Immat Gran (auto) 0.03 (0.00-0.03) X10*3/uL Absolute Neuts (auto) 5.8 (2.0-8.3) x10*3/uL Absolute Nucleated RBC 0.000 (0.0-0.012) X10*3/uL Nucleated RBC % (auto) 0.0 (0.0-0.2) /100WBC Sodium 141 (135-145) mmol/L Potassium 3.8 (3.3-5.1) mmol/L Chloride 108 (96-108) mmol/L Carbon Dioxide 25 (22-29) mmol/L Anion Gap 12 (12-20) BUN 19 H (9-16) mg/dL Creatinine 0.83 (0.5-1.4) mg/dL Estim Creat Clear Calc 114.4 Estimated GFR > 60 Random Glucose 109 (60-115) mg/dL Calcium 9.0 (8.4-10.2) mg/dL Total Bilirubin 1.0 (0.0-1.0) mg/dL Direct Bilirubin 0.4 (0.0-0.5) mg/dL AST 16 (5-37) U/L ALT 15 (0-40) U/L Alkaline Phosphatase 67 (39-117) U/L Total Protein 6.4 L (6.5-8.0) g/dL Albumin 3.9 (3.5-5.0) g/dL Urine Opiates Screen (Not Detect) Urine Fentanyl Screen (Not Detect) Ur Barbiturates Screen (Not Detect) Ur Phencyclidine Scrn (Not Detect) Ur Amphetamines Screen (Not Detect) U Benzodiazepines Scrn (Not Detect) [place] (0.60-1.20) mmol/L Urine Cocaine Screen (Not Detect) U Marijuana (THC) Screen (Not Detect) COVID-19 ([place]) Negative (Negative) COVID-19 Clin Com See Note 09/09/21 09/10/21 Range/Units 23:53 04:00 WBC (4.8-10.8) X10*3/uL RBC (4.60-5.80) X10*6/uL Hgb (14.0-18.0) g/dl Hct (42.0-52.0) % MCV (80.0-98.0) fL MCH (27.0-33.0) pg MCHC (31.0-36.0) g/dl RDW (11.0-16.0) % Plt Count (160-400) X10*3/uL MPV (9.4-12.4) fL Immature Gran % (Auto) (0.0-0.4) % Neut % (Auto) (45-73) % Lymph % (Auto) (20-40) % [place] % (Auto) (2-11) % Eos % (Auto) (0-4) % Baso % (Auto) (0-2) % Lymph # (Auto) (1.2-4.9) X10*3/uL [place] # (Auto) (0.1-1.2) X10*3/uL Eos # (Auto) (0.0-0.4) X10*3/uL Baso # (Auto) (0.0-0.2) X10*3/uL Abs Immat Gran (auto) (0.00-0.03) X10*3/uL Absolute Neuts (auto) (2.0-8.3) x10*3/uL Absolute Nucleated RBC (0.0-0.012) X10*3/uL Nucleated RBC % (auto) (0.0-0.2) /100WBC Sodium (135-145) mmol/L Potassium (3.3-5.1) mmol/L Chloride (96-108) mmol/L Carbon Dioxide (22-29) mmol/L Anion Gap (12-20) BUN (9-16) mg/dL Creatinine (0.5-1.4) mg/dL Estim Creat Clear Calc Estimated GFR Random Glucose (60-115) mg/dL Calcium (8.4-10.2) mg/dL Total Bilirubin (0.0-1.0) mg/dL Direct Bilirubin (0.0-0.5) mg/dL AST (5-37) U/L ALT (0-40) U/L Alkaline Phosphatase (39-117) U/L Total Protein (6.5-8.0) g/dL Albumin (3.5-5.0) g/dL Urine Opiates Screen Not Detected (Not Detect) Urine Fentanyl Screen Not Detected (Not Detect) Ur Barbiturates Screen Not Detected (Not Detect) Ur Phencyclidine Scrn Not Detected (Not Detect) Ur Amphetamines Screen Not Detected (Not Detect) U Benzodiazepines Scrn Not Detected (Not Detect) [place] < 0.10 L (0.60-1.20) mmol/L Urine Cocaine Screen POSITIVE H (Not Detect) U Marijuana (THC) Screen Not Detected (Not Detect) COVID-19 ([place]) (Negative) COVID-19 Clin Com Discharge Plan Discharge Clinical Impression: Depression Patient Disposition: Still a Patient Prescriptions: No Action prazosin 1 mg capsule 1 cap PO BEDTIME lithium carbonate 600 mg capsule 1 cap PO BID quetiapine 50 mg tablet 1 tab PO BEDTIME PRN (Reason: Anxiety)
--- NOTE | 2021-09-10 07:06 | PC.NURSE ---
Patient slept through the night, no distress observed/reported, behavior non concerning, [facility] referral completed/confirmed/pending ETa, med rec completed/patient currently not on any medication, VSS, will continue to monitor.
--- NOTE | 2021-09-10 11:16 | MHC.CARE ---
Pt expressed interest in respite. CARE Team provided Pt with contact information for [facility] respite. Pt is going to follow up regarding openings.
--- NOTE | 2021-09-10 12:02 | MHC.CARE ---
CARE checked in with pt regarding [facility] and she stated she was told to call after 1pm . She is hoping to be able to go there if possible otherwise pt would like to dc home. Pt declined desire to attend [facility] Living Room. CARE will check in again w pt after 1pm.
--- NOTE | 2021-09-10 13:56 | PC.NURSE ---
PT STATES THAT STILL FEELING SI THOUGHTS
[2021-09-10 15:47] VITALS: BP 113/63; PULSE 55; TEMP 36.8; O2SAT 98
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
[2021-09-10 23:09] VITALS: BP 110/72; PULSE 53; RESP 15; TEMP 36.8; O2SAT 99
--- NOTE | 2021-09-11 06:23 | PC.NURSE ---
Patient slept through the night, no distress observed/reported, off medication, behavior appropriate and non concerning, mood stable, VSS, Patient was assessed by care team pending disposition, possible respite bed search, will continue to monitor.
--- NOTE | 2021-09-11 08:24 | PC.NURSE ---
CARE team attempted to meet with pt, pt irritable regarding the interaction stating that no one met with her yesterday. pt approached t/w stating to keep that person away from me they are going to make one of my alters come out . pt reports they will only speak with the provider regarding their care
--- NOTE | 2021-09-11 08:52 | PC.NURSE ---
pt approached the nurses station stating that [facility] not have [facility] beds [facility] tomorrow and they she is first on the list . pt also continued to make statements toward CARE rn team leader, stating she better stay away from me for her own safety, because if one of my alters comes out it wont be good for her . CARE team made aware of statement. Rhea ELECTRICAL ENGINEERING MANAGER to be made aware.
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
[2021-09-11 10:00] VITALS: BP 120/64; PULSE 47; RESP 16; TEMP 36.6; O2SAT 97
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
--- NOTE | 2021-09-11 10:34 | MHC.CARE ---
Living room aware Pt will be coming today
--- NOTE | 2021-09-11 11:26 | PC.NURSE ---
pt difficult to d/c,. refusing to leave if the living room does not guarantee an overnight stay . pt on the phone with the living room who reported that they determine needs to stay based off an intake when the pt arrived. pt crossed their arms across their chest and stated well then I'm not leaving . Rhea [employer] and CARE team contacted regarding plan. decision to continue plan to D/c as pt no longer meets inpatient LOC. t/w explained to pt that no one can guarentee an overnight and that they are expecting her and will decide based off the intake. encouraged pt not to miss her lyft ride provided CARE team. security called for assistance to d/c pt. pt d/c to front of ER to waiting lyft car.
[2021-09-19 08:29] LABS: Lithium < 0.10 mmol/L (0.60-1.20)
== END 2021-09-11 11:30 ==
PROVIDERS: Emergency Medicine; Emergency Provider Emergency Medicine Emergency Medical Services
DX: F32.A Depression, unspecified (principal); F31.9 Bipolar disorder, unspecified; F64.0 Transsexualism; Z91.14 Patient's other noncompliance with medication regimen; Z20.822 Contact with and (suspected) exposure to COVID-19
CPT/HCPCS: 80048; 80076; 80178; 80307; 85025; 87635; 99284; 99285

== ENCOUNTER 2021-09-17 02:11 | Emergency (ER) | payer MEDICAID, SELFPAY ==
[2021-09-17 02:19] VITALS: BP 114/72; PULSE 61; RESP 16; TEMP 36.7; O2SAT 97; BMI 23.7
--- NOTE | 2021-09-17 02:47 | ED.PSYCH ---
HPI - Psych General Chief Complaint: Psychiatric Symptoms Stated Complaint: SI Time Seen by Provider: 09/17/21 02:23 Source: patient Mode of arrival: ambulatory Limitations: no limitations History of Present Illness HPI Narrative: Patient comes to the emergency room complaining of suicidal ideation, plan to cut her wrist. Patient is not taking any medications, denies chest pain or shortness of breath, no URI or UTI symptoms. Patient states that he was in respite and he was asked to come to the emergency room to be further evaluated. Related Data Home Medications Medication Instructions Recorded Confirmed No Known Home Meds 09/17/21 09/17/21 Allergies Allergy/AdvReac Type Severity Reaction Status Date / Time nicotine [From NICODERM CQ] Allergy Mild SHORTNESS Verified 04/10/21 21:50 OF BREATH ketchup [KETCHUP] Allergy Unknown RASH Verified 04/10/21 21:50 onion [ONION] Allergy Unknown RASH Verified 04/10/21 21:50 tomato [TOMATO] Allergy Unknown RASH Verified 04/10/21 21:50 Review of Systems Review of Systems: Constitutional : No Weight loss, No Fever, No Chills, No Night Sweats, No Fatigue, No Malaise ENT/Mouth : No Hearing loss, No Ear Pain, No Nasal Congestion, No Sinus Pain, No Hoarseness, No sore throat, No Rhinorrhea, No Swallowing Difficulty Eyes: No Eye Pain, No Swelling, No Redness, No Foreign Body, No Discharge, No Vision Changes Cardiovascular : No Chest Pain, No SOB, No Dyspnea on Exertion, No Orthopnea, No Edema, No Palpitations Respiratory : No Cough, No Sputum, No Wheezing, No Smoke Exposure, No Dyspnea Gastrointestinal : No Nausea, No Vomiting, No Diarrhea, No Constipation, No abdominal Pain, No Hematochezia, No Melena Genitourinary : no irregular bleeding, No Dysuria, No Urinary Frequency, No Hematuria, No Urinary Incontinence, No Urgency, No Flank Pain, No Urinary Flow Changes, No Hesitancy Musculoskeletal : No joint pain, No Myalgias, No Joint Swelling Skin : No Skin Lesions, No rash Neuro : No Weakness, No Numbness, No Paresthesias, No Loss of Consciousness, No Dizziness, No Headache Psych : Planning for anxiety, depression, SI, no HI Heme/Lymph: No Bruising, No Bleeding,No Lymphadenopathy Endocrine : No Polyuria, No Polydipsia, No Temperature Intolerance [facility] Past Medical History Medical History Bipolar 1 disorder Personality disorder Transgender Social History Social History Alcohol intake: current Alcohol intake frequency: 0-2 drinks per day Alcohol type: hard liquor Patient Tobacco Use Status: Never used Tobacco Substance Use Type: Crack/Cocaine Advance Directives: No Physical Exam Vital Signs: Vital Signs: Last Vital Signs Temp 98.1 F 09/17/21 02:19 Pulse 61 09/17/21 02:19 Resp 16 09/17/21 02:19 BP 114/72 09/17/21 02:19 Pulse Ox 97 09/17/21 02:19 O2 Del Method 09/17/21 02:19 BMI result Body Mass Index 23.7 Const: Other: Appearance: Alert. Oriented X3. No acute distress. Eyes: Pupils equal, round and reactive to light. ENT: Pharynx normal. Neck: Normal inspection. Neck supple. No lymph nodes noted. No crepitus CVS: Normal heart rate and rhythm. Pulses normal. Normal S1 and S2 Respiratory: No respiratory distress. Breath sounds normal. No Wheezing. No rales Abdomen: Soft and nontender. No rigidity. No distention. Skin: Skin warm and dry. Normal skin color. Normal skin turgor. Extremities: No lower extremity edema. No Lacerations. No Rash Neuro: Oriented X 3. No motor deficit. No sensory deficit. Moving all extremities. No slurred speech. CN 2 through 12 grossly intact Psych: calm, cooperative, normal affect, coherent Course Course Course Narrative: BHN consult pending, patient is on a Section 12 Sign-out given to Dr. Barlow Physician of sebaceous started at 02:50 Discharge Plan Discharge Clinical Impression: Suicidal ideation Patient Disposition: Still a Patient Prescriptions: No Action No Known Home Meds
[2021-09-17 02:53] LABS: COVID-19 Test Negative (Negative)
[2021-09-17 05:50] LABS: Amphetamine Screen Urine Not Detected (Not Detect); Barbiturates, Urine Not Detected (Not Detect); Benzodiazepines Screen Urine Not Detected (Not Detect); Cannabinoid Screen Urine Not Detected (Not Detect); Cocaine Screen Urine POSITIVE (Not Detect); Fentanyl, urine Not Detected (Not Detect); Opiate Screen Urine Not Detected (Not Detect); Phencyclidine Screen Urine Not Detected (Not Detect)
--- NOTE | 2021-09-17 06:00 | PC.NURSE ---
Patient slept through the night, no distress observed/reported, BHN referral completed/confirmed/pending evaluation in AM, med rec completed/currently not taking any medication, behavior non concerning, contracted for the safety, will continue to monitor.
[2021-09-17 11:15] VITALS: BP 103/61; PULSE 48; RESP 16; TEMP 36.8; O2SAT 98
== END 2021-09-17 12:50 | disposition home or self-care (01) ==
PROVIDERS: Emergency Provider Emergency Medicine
DX: F33.1 Major depressive disorder, recurrent, moderate (principal); R45.851 Suicidal ideations; Z79.899 Other long term (current) drug therapy; Z20.822 Contact with and (suspected) exposure to COVID-19
CPT/HCPCS: 80307; 87635; 99284

== ENCOUNTER 2021-09-30 03:28 | Emergency (ER) | payer MEDICAID, SELFPAY ==
[2021-09-30 03:58] VITALS: BP 100/72; PULSE 65; RESP 18; TEMP 36.9; O2SAT 97; BMI 25.1
[2021-09-30 04:06] LABS: MANUAL DIFF FLAG NO
[2021-09-30 04:07] LABS: Basophils Absolute Auto 0.1 X10*3/uL (0.0-0.2); Basophils Percent Auto 0.5 % (0-2); Eosinophils Absolute Auto 0.1 X10*3/uL (0.0-0.4); Eosinophils Percent Auto 0.6 % (0-4); Hemoglobin 14.6 g/dl (14.0-18.0); Imm Gran Abs Auto 0.08 X10*3/uL (0.00-0.03); Imm Gran Pct Auto 0.5 % (0.0-0.4); Lymphocytes Absolute Auto 2.9 X10*3/uL (1.2-4.9); Lymphocytes Percent Auto 17.9 % (20-40); Mean Corpuscular Hemoglobin 29.9 pg (27.0-33.0); Mean Corpuscular Volume 87.9 fL (80.0-98.0); Mean Platelet Volume 10.4 fL (9.4-12.4); Monocytes Absolute Auto 1.4 X10*3/uL (0.1-1.2); Monocytes Percent Auto 8.4 % (2-11); Neutrophils Absolute Auto 11.8 x10*3/uL (2.0-8.3); Neutrophils Percent Auto 72.1 % (45-73); Platelet Count 281 X10*3/uL (160-400); Red Blood Count 4.89 X10*6/uL (4.60-5.80); Red Cell Distribution Width 12.7 % (11.0-16.0); White Blood Count 16.4 X10*3/uL (4.8-10.8)
[2021-09-30 04:25] LABS: Alanine Aminotransferase 16 U/L (0-40); Albumin Level 4.4 g/dL (3.5-5.0); Alkaline Phosphatase 73 U/L (39-117); Anion Gap 15 (12-20); Aspartate Amino Transferase 21 U/L (5-37); Bilirubin Direct 0.6 mg/dL (0.0-0.5); Bilirubin Total 1.3 mg/dL (0.0-1.0); Blood Urea Nitrogen 19 mg/dL (9-16); Calcium 9.6 mg/dL (8.4-10.2); Carbon Dioxide 22 mmol/L (22-29); Chloride 106 mmol/L (96-108); Creatinine Clr Calc Pharmacy 118.2; Estimated Glomerular Filt Rate > 60; Glucose Random 82 mg/dL (60-115); Lipase 6 U/L (8-78); Potassium 3.9 mmol/L (3.3-5.1); Sodium 139 mmol/L (135-145); Total Protein 7.3 g/dL (6.5-8.0)
== END 2021-09-30 07:48 | disposition left against medical advice (07) ==
PROVIDERS: Emergency Provider Emergency Medicine
DX: R11.10 Vomiting, unspecified (principal); R10.9 Unspecified abdominal pain; Z79.899 Other long term (current) drug therapy
CPT/HCPCS: 36415; 80048; 80076; 83690; 85025; 99281; 99283

== ENCOUNTER 2021-10-04 23:23 | Emergency (ER) | payer MEDICAID, SELFPAY ==
[2021-10-04 23:31] VITALS: BMI 26.6
[2021-10-04 23:33] VITALS: BP 118/59; PULSE 61; RESP 18; TEMP 37.1; O2SAT 97
--- NOTE | 2021-10-04 23:33 | ED_ITS ---
HPI - Psych General Chief Complaint: Psychiatric Symptoms Stated Complaint: SI/crisis Source: patient Mode of arrival: ambulatory Limitations: no limitations History of Present Illness HPI Narrative: 46-year-old male transitioning to female presents for suicidal ideation. Patient states the plan is to cut her wrists. Patient does not provide any further information. MD complaint: suicidal ideation and feels depressed Onset (ago): year(s) Duration: constant History of same: Yes Relieving factors: none Context: significant life stressor Associated psychiatric symptoms: depression and suicidal ideation Associated symptoms: denies other symptoms Treatments prior to arrival: none If self harm: admits thoughts of self harm and has plan Related Data Home Medications Medication Instructions Recorded Confirmed No Known Home Meds 10/04/21 10/04/21 Allergies Allergy/AdvReac Type Severity Reaction Status Date / Time nicotine [From NICODERM CQ] Allergy Mild SHORTNESS Verified 04/10/21 21:50 OF BREATH ketchup [KETCHUP] Allergy Unknown RASH Verified 04/10/21 21:50 onion [ONION] Allergy Unknown RASH Verified 04/10/21 21:50 tomato [TOMATO] Allergy Unknown RASH Verified 04/10/21 21:50 Review of Systems Review of Systems: Constitutional: No Fever, No Chills ENT/Mouth: No Ear Pain, No Nasal Congestion, No sore throat Eyes: No Eye Pain, No Swelling, No Redness Cardiovascular: No Chest Pain, No SOB Respiratory: No Cough, No Sputum, No Dyspnea Gastrointestinal: No Nausea, No Vomiting, No Diarrhea, No Hematochezia, No Melena Genitourinary: No Dysuria, No Urinary Frequency, No Hematuria Musculoskeletal: No Myalgias Skin: No Skin Lesions, No rash Neuro: No Weakness, No Numbness, No Paresthesias, No Dizziness, No Headache Psych: positive Anxiety, positive Depression, positive SI Heme/Lymph: No Lymphadenopathy Endocrine: No Polyuria, No Polydipsia Yes all other systems are reviewed and are negative [facility] Past Medical History Attestation statement: The following information was validated with the patient. Source: old records reviewed Medical History Bipolar 1 disorder Personality disorder Transgender Social History Social History Alcohol intake: current Alcohol intake frequency: 0-2 drinks per day Alcohol type: hard liquor Patient Tobacco Use Status: Never used Tobacco Substance Use Type: Crack/Cocaine Advance Directives: No Physical Exam Vital Signs: Vital Signs: Last Vital Signs Temp 98.7 F 10/04/21 23:33 Pulse 61 10/04/21 23:33 Resp 18 10/04/21 23:33 BP 118/59 L 10/04/21 23:33 Pulse Ox 97 10/04/21 23:33 O2 Del Method 10/04/21 23:33 BMI result Body Mass Index 25.1 Appearance: Alert. Oriented X3. No acute distress. Eyes: Pupils equal, round and reactive to light. ENT: Pharynx normal. Neck: Normal inspection. Neck supple. CVS: Normal heart rate and rhythm. Pulses normal. Respiratory: No respiratory distress. Breath sounds normal. Abdomen: Soft and nontender. Skin: Skin warm and dry. Normal skin color. Normal skin turgor. Extremities: No lower extremity edema. Gait well-balanced will coordinated. Neuro: No motor deficit. No sensory deficit. Cranial nerves 2-12 intact. Course Course Course Narrative: 46-year-old male transitioning to female presents for suicidal ideation. When this [employer] asked the plan, patient made a gesture with patient's finger across the wrists indicating that the plan was for cutting. Patient did verbalize ideations of cutting wrist. This patient is well-known to this facility. Has had multiple presentations for similar circumstances. Patient is not describing auditory or visual hallucinations, denies homicidal ideations. Plan of care is for labs and BHN consult. 01:52 BHN consult complete. Plan of care is for respite in the morning. MDM - Psych Differential Diagnosis Differential diagnosis: Likely acute psychosis, suicidal ideation, bipolar disorder and depression Medical Records Attestation: I reviewed the patient's medical records. Lab Data Attestation: I reviewed the patient's lab results. Result diagrams: 10/05/21 00:58 10/05/21 00:58 Labs: Lab Results 10/04/21 10/05/21 10/05/21 Range/Units 23:31 00:24 00:24 WBC (4.8-10.8) X10*3/uL RBC (4.60-5.80) X10*6/uL Hgb (14.0-18.0) g/dl Hct (42.0-52.0) % MCV (80.0-98.0) fL MCH (27.0-33.0) pg MCHC (31.0-36.0) g/dl RDW (11.0-16.0) % Plt Count (160-400) X10*3/uL MPV (9.4-12.4) fL Immature Gran % (Auto) (0.0-0.4) % Neut % (Auto) (45-73) % Lymph % (Auto) (20-40) % [place] % (Auto) (2-11) % Eos % (Auto) (0-4) % Baso % (Auto) (0-2) % Lymph # (Auto) (1.2-4.9) X10*3/uL [place] # (Auto) (0.1-1.2) X10*3/uL Eos # (Auto) (0.0-0.4) X10*3/uL Baso # (Auto) (0.0-0.2) X10*3/uL Abs Immat Gran (auto) (0.00-0.03) X10*3/uL Absolute Neuts (auto) (2.0-8.3) x10*3/uL Absolute Nucleated RBC (0.0-0.012) X10*3/uL Nucleated RBC % (auto) (0.0-0.2) /100WBC Sodium (135-145) mmol/L Potassium (3.3-5.1) mmol/L Chloride (96-108) mmol/L Carbon Dioxide (22-29) mmol/L Anion Gap (12-20) BUN (9-16) mg/dL Creatinine (0.5-1.4) mg/dL Estim Creat Clear Calc Estimated GFR Random Glucose (60-115) mg/dL Calcium (8.4-10.2) mg/dL Urine Color DK YELLOW Urine Appearance HAZY Urine pH 6.5 (5.0-8.0) Ur Specific [place] 1.025 (1.005-1.025) Urine Protein NEG (NEG-TRACE) MG/DL Urine Glucose (UA) NEG (NEG) MG/DL Urine Ketones NEG (NEG) MG/DL Urine Blood NEG (NEG) Urine Nitrite NEG (NEG) Ur Leukocyte Esterase NEG (NEG) Urine Opiates Screen Not Detected (Not Detect) Urine Fentanyl Screen Not Detected (Not Detect) Ur Barbiturates Screen Not Detected (Not Detect) Ur Phencyclidine Scrn Not Detected (Not Detect) Ur Amphetamines Screen Not Detected (Not Detect) U Benzodiazepines Scrn Not Detected (Not Detect) Urine Cocaine Screen POSITIVE H (Not Detect) U Marijuana (THC) Screen Not Detected (Not Detect) COVID-19 ([place]) Negative (Negative) COVID-19 Clin Com See Note 10/05/21 10/05/21 Range/Units 00:58 00:58 WBC 11.7 H (4.8-10.8) X10*3/uL RBC 4.40 L (4.60-5.80) X10*6/uL Hgb 13.4 L (14.0-18.0) g/dl Hct 39.2 L (42.0-52.0) % MCV 89.1 (80.0-98.0) fL MCH 30.5 (27.0-33.0) pg MCHC 34.2 (31.0-36.0) g/dl RDW 12.6 (11.0-16.0) % Plt Count 233 (160-400) X10*3/uL MPV 9.9 (9.4-12.4) fL Immature Gran % (Auto) 0.3 (0.0-0.4) % Neut % (Auto) 56.0 (45-73) % Lymph % (Auto) 31.3 (20-40) % [place] % (Auto) 9.2 (2-11) % Eos % (Auto) 2.8 (0-4) % Baso % (Auto) 0.4 (0-2) % Lymph # (Auto) 3.7 (1.2-4.9) X10*3/uL [place] # (Auto) 1.1 (0.1-1.2) X10*3/uL Eos # (Auto) 0.3 (0.0-0.4) X10*3/uL Baso # (Auto) 0.1 (0.0-0.2) X10*3/uL Abs Immat Gran (auto) 0.04 H (0.00-0.03) X10*3/uL Absolute Neuts (auto) 6.5 (2.0-8.3) x10*3/uL Absolute Nucleated RBC 0.000 (0.0-0.012) X10*3/uL Nucleated RBC % (auto) 0.0 (0.0-0.2) /100WBC Sodium 139 (135-145) mmol/L Potassium 3.4 (3.3-5.1) mmol/L Chloride 106 (96-108) mmol/L Carbon Dioxide 27 (22-29) mmol/L Anion Gap 9 L (12-20) BUN 15 (9-16) mg/dL Creatinine 0.84 (0.5-1.4) mg/dL Estim Creat Clear Calc 118.2 Estimated GFR > 60 Random Glucose 113 D (60-115) mg/dL Calcium 8.8 D (8.4-10.2) mg/dL Urine Color Urine Appearance Urine pH (5.0-8.0) Ur Specific [place] (1.005-1.025) Urine Protein (NEG-TRACE) MG/DL Urine Glucose (UA) (NEG) MG/DL Urine Ketones (NEG) MG/DL Urine Blood (NEG) Urine Nitrite (NEG) Ur Leukocyte Esterase (NEG) Urine Opiates Screen (Not Detect) Urine Fentanyl Screen (Not Detect) Ur Barbiturates Screen (Not Detect) Ur Phencyclidine Scrn (Not Detect) Ur Amphetamines Screen (Not Detect) U Benzodiazepines Scrn (Not Detect) Urine Cocaine Screen (Not Detect) U Marijuana (THC) Screen (Not Detect) COVID-19 ([place]) (Negative) COVID-19 Clin Com Discharge Plan Discharge Clinical Impression: Suicidal ideation Patient Disposition: Home, Self-Care Instructions: Depression (ED) Additional Instructions: Please follow-up with respite and outpatient psychiatry as scheduled Thank you for choosing this emergency department for evaluation. Please follow-up with primary care physician as needed. Return to the emergency department for any new, concerning, or worsening symptoms. Prescriptions: No Action No Known Home Meds
[2021-10-04 23:34] VITALS: BMI 25.1
[2021-10-04 23:52] LABS: COVID-19 Test Negative (Negative)
[2021-10-05 00:30] LABS: Appearance Urine HAZY; Color Urine DK YELLOW; Glucose Urine UA NEG (NEG); Leukocyte Esterase Urine NEG (NEG); Nitrite Urine NEG (NEG); PH 6.5 (5.0-8.0); Specific Gravity - Urine 1.025 (1.005-1.025); Urine Blood NEG (NEG); Urine Ketones NEG (NEG); Urine Protein NEG (NEG-TRACE)
[2021-10-05 00:44] LABS: Amphetamine Screen Urine Not Detected (Not Detect); Barbiturates, Urine Not Detected (Not Detect); Benzodiazepines Screen Urine Not Detected (Not Detect); Cannabinoid Screen Urine Not Detected (Not Detect); Cocaine Screen Urine POSITIVE (Not Detect); Fentanyl, urine Not Detected (Not Detect); Opiate Screen Urine Not Detected (Not Detect); Phencyclidine Screen Urine Not Detected (Not Detect)
[2021-10-05 01:03] LABS: Basophils Absolute Auto 0.1 X10*3/uL (0.0-0.2); Basophils Percent Auto 0.4 % (0-2); Eosinophils Absolute Auto 0.3 X10*3/uL (0.0-0.4); Eosinophils Percent Auto 2.8 % (0-4); Hematocrit 39.2 % (42.0-52.0); Hemoglobin 13.4 g/dl (14.0-18.0); Imm Gran Abs Auto 0.04 X10*3/uL (0.00-0.03); Imm Gran Pct Auto 0.3 % (0.0-0.4); Lymphocytes Absolute Auto 3.7 X10*3/uL (1.2-4.9); Lymphocytes Percent Auto 31.3 % (20-40); MANUAL DIFF FLAG NO; Mean Corpuscular HGB Conc 34.2 g/dl (31.0-36.0); Mean Corpuscular Hemoglobin 30.5 pg (27.0-33.0); Mean Corpuscular Volume 89.1 fL (80.0-98.0); Mean Platelet Volume 9.9 fL (9.4-12.4); Monocytes Absolute Auto 1.1 X10*3/uL (0.1-1.2); Monocytes Percent Auto 9.2 % (2-11); Neutrophils Absolute Auto 6.5 x10*3/uL (2.0-8.3); Platelet Count 233 X10*3/uL (160-400); Red Cell Distribution Width 12.6 % (11.0-16.0); White Blood Count 11.7 X10*3/uL (4.8-10.8)
[2021-10-05 01:21] LABS: Anion Gap 9 (12-20); Blood Urea Nitrogen 15 mg/dL (9-16); Calcium 8.8 mg/dL (8.4-10.2); Carbon Dioxide 27 mmol/L (22-29); Chloride 106 mmol/L (96-108); Creatinine Clr Calc Pharmacy 118.2; Estimated Glomerular Filt Rate > 60; Glucose Random 113 mg/dL (60-115); Potassium 3.4 mmol/L (3.3-5.1); Sodium 139 mmol/L (135-145)
--- NOTE | 2021-10-05 07:07 | PC.NURSE ---
Patient slept through the night, no distress observed/reported, behavior non concerning, patient is not on any medication currently, disposition per N is respite bed search, vss, behavior appropriate, will continue to monitor.
--- NOTE | 2021-10-05 07:27 | PC.NURSE ---
patient appears to remain asleep at present respirations are even and unlabored patient appears in no distress
== END 2021-10-05 08:33 | disposition home or self-care (01) ==
PROVIDERS: Nurse Practitioner Family; Emergency Provider Internal Medicine
DX: F33.1 Major depressive disorder, recurrent, moderate (principal); R45.851 Suicidal ideations; F14.90 Cocaine use, unspecified, uncomplicated; Z20.822 Contact with and (suspected) exposure to COVID-19; Z79.899 Other long term (current) drug therapy
CPT/HCPCS: 36415; 80048; 80307; 81003; 85025; 87635; 99284

== ENCOUNTER 2021-10-15 00:52 | Emergency (ER) | payer MEDICAID, SELFPAY ==
[2021-10-15 01:45] VITALS: BP 106/61; PULSE 58; RESP 17; TEMP 36.5; O2SAT 97; BMI 24.3
[2021-10-15 02:00] LABS: Appearance Urine CLEAR; Color Urine DK YELLOW; Glucose Urine UA NEG (NEG); Leukocyte Esterase Urine NEG (NEG); Nitrite Urine NEG (NEG); PH 5.5 (5.0-8.0); Specific Gravity - Urine >= 1.030 (1.005-1.025); Urine Blood NEG (NEG); Urine Ketones NEG (NEG); Urine Protein NEG (NEG-TRACE)
[2021-10-15 02:12] LABS: COVID-19 Test Negative (Negative)
[2021-10-15 02:19] LABS: Amphetamine Screen Urine Not Detected (Not Detect); Barbiturates, Urine Not Detected (Not Detect); Benzodiazepines Screen Urine Not Detected (Not Detect); Cannabinoid Screen Urine Not Detected (Not Detect); Cocaine Screen Urine POSITIVE (Not Detect); Fentanyl, urine POSITIVE (Not Detect); Opiate Screen Urine Not Detected (Not Detect); Phencyclidine Screen Urine Not Detected (Not Detect)
[2021-10-15 02:38] LABS: MANUAL DIFF FLAG NO
[2021-10-15 02:39] LABS: Basophils Absolute Auto 0.1 X10*3/uL (0.0-0.2); Basophils Percent Auto 0.6 % (0-2); Eosinophils Absolute Auto 0.2 X10*3/uL (0.0-0.4); Eosinophils Percent Auto 1.8 % (0-4); Hematocrit 41.1 % (42.0-52.0); Hemoglobin 14.3 g/dl (14.0-18.0); Imm Gran Abs Auto 0.04 X10*3/uL (0.00-0.03); Imm Gran Pct Auto 0.4 % (0.0-0.4); Lymphocytes Percent Auto 27.4 % (20-40); Mean Corpuscular HGB Conc 34.8 g/dl (31.0-36.0); Mean Corpuscular Hemoglobin 30.6 pg (27.0-33.0); Mean Corpuscular Volume 87.8 fL (80.0-98.0); Mean Platelet Volume 9.8 fL (9.4-12.4); Neutrophils Absolute Auto 6.6 x10*3/uL (2.0-8.3); Neutrophils Percent Auto 60.8 % (45-73); Platelet Count 259 X10*3/uL (160-400); Red Blood Count 4.68 X10*6/uL (4.60-5.80); Red Cell Distribution Width 12.4 % (11.0-16.0); White Blood Count 10.8 X10*3/uL (4.8-10.8)
--- NOTE | 2021-10-15 02:49 | ED.PSYCH ---
HPI - Psych General Chief Complaint: Psychiatric Symptoms Stated Complaint: SI Time Seen by Provider: 10/15/21 02:49 Source: patient Mode of arrival: ambulatory History of Present Illness HPI Narrative: 46-year-old patient reports suicidal ideation and denies any cocaine use at this time but states that there has been 3 days of alcohol consumption and otherwise denies any fever, chills, GI or symptoms. Related Data Home Medications Medication Instructions Recorded Confirmed No Known Home Meds 10/15/21 10/15/21 Allergies Allergy/AdvReac Type Severity Reaction Status Date / Time nicotine [From NICODERM CQ] Allergy Mild SHORTNESS Verified 04/10/21 21:50 OF BREATH ketchup [KETCHUP] Allergy Unknown RASH Verified 04/10/21 21:50 onion [ONION] Allergy Unknown RASH Verified 04/10/21 21:50 tomato [TOMATO] Allergy Unknown RASH Verified 04/10/21 21:50 Review of Systems Review of Systems: Pertinent positives and negatives as stated in HPI 10 point review of systems is otherwise negative. PMFSH Past Medical History Source: nursing notes reviewed Medical History Bipolar 1 disorder Personality disorder Transgender Social History Social History Alcohol intake: current Alcohol intake frequency: 0-2 drinks per day Alcohol type: hard liquor Patient Tobacco Use Status: Never used Tobacco Substance Use Type: Crack/Cocaine Advance Directives: No Advance Directives Information Provided: Yes Physical Exam Vital Signs: Vital Signs: Last Vital Signs Temp 97.7 F 10/15/21 01:45 Pulse 58 10/15/21 01:45 Resp 17 10/15/21 01:45 BP 106/61 10/15/21 01:45 Pulse Ox 97 10/15/21 01:45 O2 Del Method 10/15/21 01:45 BMI result Body Mass Index 24.3 VITAL SIGNS: Reviewed. GENERAL: Well developed, well nourished, in no acute distress. HEAD: Normocephalic/atraumatic EYES: PERRLA, EOMI EARS: Ext canals without abnormality OROPHARYNX: no oral lesions noted, posterior pharynx clear LUNGS: Normal breath sounds. No adventitious sounds or accessory muscle use. SpO2<97> CARDIOVASCULAR: Regular rate and rhythm without noted murmurs ABDOMEN: Soft, non-tender, non-distended with bowel sounds. NEUROLOGIC: Alert and oriented x 4. Strength and sensation to light touch were grossly intact x 4, cranial nerves 2-12 are grossly intact. Course Course Course Narrative: 46-year-old patient with complaints of suicidal ideation and alcohol use. On review of all investigations patient is positive for fentanyl and cocaine but no evidence of alcohol in the system. Patient is otherwise medically cleared for further evaluation by the crisis team. Reevaluation(s) Reevaluation #1: Patient placed in physician observation because the patient needed more time for evaluation by the care team. At the time observation was started the patient's vital signs were stable, patient is alert and oriented but slightly agitated, neuro: Nonfocal, CV RRR, lungs clear Time: 03:05 MDM - Psych Lab Data Result diagrams: 10/15/21 02:33 10/15/21 02:33 Labs: Lab Results 10/15/21 10/15/21 10/15/21 Range/Units 01:52 01:52 01:52 WBC (4.8-10.8) X10*3/uL RBC (4.60-5.80) X10*6/uL Hgb (14.0-18.0) g/dl Hct (42.0-52.0) % MCV (80.0-98.0) fL MCH (27.0-33.0) pg MCHC (31.0-36.0) g/dl RDW (11.0-16.0) % Plt Count (160-400) X10*3/uL MPV (9.4-12.4) fL Immature Gran % (Auto) (0.0-0.4) % Neut % (Auto) (45-73) % Lymph % (Auto) (20-40) % [place] % (Auto) (2-11) % Eos % (Auto) (0-4) % Baso % (Auto) (0-2) % Lymph # (Auto) (1.2-4.9) X10*3/uL [place] # (Auto) (0.1-1.2) X10*3/uL Eos # (Auto) (0.0-0.4) X10*3/uL Baso # (Auto) (0.0-0.2) X10*3/uL Abs Immat Gran (auto) (0.00-0.03) X10*3/uL Absolute Neuts (auto) (2.0-8.3) x10*3/uL Absolute Nucleated RBC (0.0-0.012) X10*3/uL Nucleated RBC % (auto) (0.0-0.2) /100WBC Sodium (135-145) mmol/L Potassium (3.3-5.1) mmol/L Chloride (96-108) mmol/L Carbon Dioxide (22-29) mmol/L Anion Gap (12-20) BUN (9-16) mg/dL Creatinine (0.5-1.4) mg/dL Estim Creat Clear Calc Estimated GFR Random Glucose (60-115) mg/dL Calcium (8.4-10.2) mg/dL Urine Color DK YELLOW Urine Appearance CLEAR Urine pH 5.5 (5.0-8.0) Ur Specific [place] >= 1.030 H (1.005-1.025) Urine Protein NEG (NEG-TRACE) MG/DL Urine Glucose (UA) NEG (NEG) MG/DL Urine Ketones NEG (NEG) MG/DL Urine Blood NEG (NEG) Urine Nitrite NEG (NEG) Ur Leukocyte Esterase NEG (NEG) Urine Opiates Screen Not Detected (Not Detect) Urine Fentanyl Screen POSITIVE H (Not Detect) Ur Barbiturates Screen Not Detected (Not Detect) Ur Phencyclidine Scrn Not Detected (Not Detect) Ur Amphetamines Screen Not Detected (Not Detect) U Benzodiazepines Scrn Not Detected (Not Detect) Urine Cocaine Screen POSITIVE H (Not Detect) U Marijuana (THC) Screen Not Detected (Not Detect) Ethyl Alcohol mg/dL COVID-19 ([place]) Negative (Negative) COVID-19 Clin Com See Note 10/15/21 10/15/21 Range/Units 02:33 02:33 WBC 10.8 (4.8-10.8) X10*3/uL RBC 4.68 (4.60-5.80) X10*6/uL Hgb 14.3 (14.0-18.0) g/dl Hct 41.1 L (42.0-52.0) % MCV 87.8 (80.0-98.0) fL MCH 30.6 (27.0-33.0) pg MCHC 34.8 (31.0-36.0) g/dl RDW 12.4 (11.0-16.0) % Plt Count 259 (160-400) X10*3/uL MPV 9.8 (9.4-12.4) fL Immature Gran % (Auto) 0.4 (0.0-0.4) % Neut % (Auto) 60.8 (45-73) % Lymph % (Auto) 27.4 (20-40) % [place] % (Auto) 9.0 (2-11) % Eos % (Auto) 1.8 (0-4) % Baso % (Auto) 0.6 (0-2) % Lymph # (Auto) 3.0 (1.2-4.9) X10*3/uL [place] # (Auto) 1.0 (0.1-1.2) X10*3/uL Eos # (Auto) 0.2 (0.0-0.4) X10*3/uL Baso # (Auto) 0.1 (0.0-0.2) X10*3/uL Abs Immat Gran (auto) 0.04 H (0.00-0.03) X10*3/uL Absolute Neuts (auto) 6.6 (2.0-8.3) x10*3/uL Absolute Nucleated RBC 0.000 (0.0-0.012) X10*3/uL Nucleated RBC % (auto) 0.0 (0.0-0.2) /100WBC Sodium 138 (135-145) mmol/L Potassium 3.4 (3.3-5.1) mmol/L Chloride 104 (96-108) mmol/L Carbon Dioxide 27 (22-29) mmol/L Anion Gap 10 L (12-20) BUN 23 H D (9-16) mg/dL Creatinine 0.92 (0.5-1.4) mg/dL Estim Creat Clear Calc 101.3 Estimated GFR > 60 Random Glucose 99 (60-115) mg/dL Calcium 9.0 (8.4-10.2) mg/dL Urine Color Urine Appearance Urine pH (5.0-8.0) Ur Specific [place] (1.005-1.025) Urine Protein (NEG-TRACE) MG/DL Urine Glucose (UA) (NEG) MG/DL Urine Ketones (NEG) MG/DL Urine Blood (NEG) Urine Nitrite (NEG) Ur Leukocyte Esterase (NEG) Urine Opiates Screen (Not Detect) Urine Fentanyl Screen (Not Detect) Ur Barbiturates Screen (Not Detect) Ur Phencyclidine Scrn (Not Detect) Ur Amphetamines Screen (Not Detect) U Benzodiazepines Scrn (Not Detect) Urine Cocaine Screen (Not Detect) U Marijuana (THC) Screen (Not Detect) Ethyl Alcohol < 10 mg/dL COVID-19 ([place]) (Negative) COVID-19 Clin Com Discharge Plan Discharge Clinical Impression: Suicidal ideation Patient Disposition: Still a Patient Prescriptions: No Action No Known Home Meds
[2021-10-15 02:56] LABS: Anion Gap 10 (12-20); Blood Urea Nitrogen 23 mg/dL (9-16); Carbon Dioxide 27 mmol/L (22-29); Chloride 104 mmol/L (96-108); Creatinine Clr Calc Pharmacy 101.3; Estimated Glomerular Filt Rate > 60; Ethanol < 10 mg/dL; Glucose Random 99 mg/dL (60-115); Potassium 3.4 mmol/L (3.3-5.1); Sodium 138 mmol/L (135-145)
--- NOTE | 2021-10-15 07:00 | PC.NURSE ---
Patient slept through the night, no distress observed/reported, BHN referral completed, confirmed, pending ETA, behavior non concerning, med rec completed/patient is currently not on any medication, will continue to monitor.
--- NOTE | 2021-10-15 07:13 | PC.NURSE ---
patient appears to remain asleep at present respirations are even and unlabored patient appears in no distress
[2021-10-15 12:12] VITALS: BP 102/53; PULSE 50; TEMP 36.7; O2SAT 97
[2021-10-15 16:58] VITALS: BP 122/62; PULSE 63; RESP 18; TEMP 36.4; O2SAT 96
[2021-10-15] MEDS: diphenhydrAMINE HCL 25 MG TABLET 50 MG PO (17:14)
[2021-10-16 05:38] VITALS: BP 112/66; PULSE 47; RESP 16; TEMP 36.8; O2SAT 99
--- NOTE | 2021-10-16 07:31 | PC.NURSE ---
Patient slept through the night, no distress observed/reported, disposition per [facility] is section 12 inpatient bed search, patient is not on any medication, behavior non concerning, VS at baseline, [facility].
--- NOTE | 2021-10-16 11:38 | PC.NURSE ---
patient ambulating on unit, given po per request of patient, pt is bed search, will continue to monitor.
[2021-10-16 12:03] VITALS: BP 104/52; PULSE 50; TEMP 37.1; O2SAT 99
--- NOTE | 2021-10-16 14:37 | PC.NURSE ---
patient ambulating around unit, ate lunch/given additional po per request, pt also showered, provider evaluated patients rash to rt hip, no c/o pain or discomfort, pt inquiring when bhn would come see him, will continue to monitor.
[2021-10-16] MEDS: predniSONE 20 MG TABLET 60 MG PO (17:14)
[2021-10-16] MEDS: Famotidine 20 MG TABLET PO (17:14)
[2021-10-16 19:12] VITALS: BP 119/59; PULSE 50; RESP 16; TEMP 36.5; O2SAT 100
[2021-10-17 04:01] VITALS: BP 121/70; PULSE 57; RESP 16; TEMP 36.2; O2SAT 99
--- NOTE | 2021-10-17 06:02 | PC.NURSE ---
Patient slept through the night, no distress observed/reported, disposition per [facility] is section 12 inpatient bed search, patient is currently not on any medication, behavior non concerning, VS at baseline, will continue to monitor.
--- NOTE | 2021-10-17 07:48 | PC.NURSE ---
Pt awake, pacing the pod, asking multiple times to see BHN I would like to be discharged Pt informed BHN will be in to do re-evaluations at some point today. Pt making frequent requests for items from his locker, the phone, and to shower.
--- NOTE | 2021-10-17 15:01 | MHC.CARE ---
CARE Team met with Pt who is requesting to be discharged. Pt denies current SI/HI. Pt reporting she would like a referral to [facility]. CARE Team provided Pt with crisis information and placed [facility] referral.
== END 2021-10-17 09:33 | disposition home or self-care (01) ==
PROVIDERS: Emergency Provider Student in an Organized Health Care Education/Training Program
DX: R45.851 Suicidal ideations (principal); R45.1 Restlessness and agitation; F10.10 Alcohol abuse, uncomplicated; Y90.0 Blood alcohol level of less than 20 mg/100 ml; F14.90 Cocaine use, unspecified, uncomplicated; F31.9 Bipolar disorder, unspecified; F60.9 Personality disorder, unspecified; F64.0 Transsexualism; Z20.822 Contact with and (suspected) exposure to COVID-19
CPT/HCPCS: 36415; 80048; 80307; 81003; 82077; 85025; 87635; 99284; Q0163

== ENCOUNTER 2021-10-20 06:07 | Emergency (ER) | payer MEDICAID, SELFPAY ==
[2021-10-20 06:22] VITALS: BP 129/78; PULSE 65; RESP 16; TEMP 36.9; O2SAT 98; BMI 25.1
--- NOTE | 2021-10-20 07:55 | ED_ITS ---
HPI - Allergic Reaction General Chief complaint: Allergic Reaction Stated complaint: rash on right leg Time Seen by Provider: 10/20/21 07:48 Source: patient Mode of arrival: ambulatory Limitations: no limitations History of Present Illness HPI narrative: 46-year-old transgender female who presents emergency department for evaluation rash on her lower extremities. The patient states that she was camping 3 days prior and then developed a rash. She describes the rash as pruritic. The rash is confined to her lower extremities only. She denied any other symptoms such as fever, chills, difficulty swallowing, chest pain, shortness of breath, nausea or vomiting. complaint: other (Contact dermatitis) Onset (ago): day(s) (3) Exposure: plant (Poison mahogany) Symptoms: rash Severity: mild Treatment prior to arrival: none Previous Allergic Reaction History: none Related Data Previous Rx's Medication Instructions Recorded prednisone 20 mg tablet 60 mg PO DAILY 7 days #21 tabs 10/20/21 Allergies Allergy/AdvReac Type Severity Reaction Status Date / Time nicotine [From NICODERM CQ] Allergy Mild SHORTNESS Verified 04/10/21 21:50 OF BREATH ketchup [KETCHUP] Allergy Unknown RASH Verified 04/10/21 21:50 onion [ONION] Allergy Unknown RASH Verified 04/10/21 21:50 tomato [TOMATO] Allergy Unknown RASH Verified 04/10/21 21:50 Review of Systems Review of Systems: Yes all other systems are reviewed and are negative [facility] Past Medical History [facility] Narrative: Social history: The patient smokes 1 pack of cigarettes per day greater than 20 years, patient drinks 1 pt of alcohol per day. The patient uses intranasal cocaine frequently. She states that she has gotten into a drug treatment program that started today and does not want crisis counseling. Medical History Bipolar 1 disorder Personality disorder Transgender Social History Social History Alcohol intake: current Alcohol intake frequency: 0-2 drinks per day Alcohol type: hard liquor Patient Tobacco Use Status: Never used Tobacco Substance Use Type: Crack/Cocaine Advance Directives: No Advance Directives Information Provided: Yes Physical Exam ED Vital Signs: Vital Signs - 24 hr 10/20/21 06:22 Temperature 98.4 F Pulse Rate 65 Respiratory Rate 16 Blood Pressure 129/78 Pulse Oximetry 98 Oxygen Delivery Method Room Air BMI result Body Mass Index 25.1 Const General: cooperative and no acute distress Orientation/consciousness: oriented to person and oriented to place Limitations: no limitations HENMT Head: Yes normal to inspection, Yes normocephalic and Yes atraumatic Ears: external ears normal General nose exam: Normal external nose present Face and sinus: Yes normal facial exam Mouth: Normal oral and palatal mucosa present Throat: Yes posterior oropharynx normal Eyes General: appearance normal, both eyes and all related structures Pupils: Equal, round and reactive pupils present Neck Neck: Yes normal visual inspection, Yes no lymphadenopathy, Yes trachea midline and Yes supple Chest Chest palpation & inspection: normal inspection of the chest and normal palpation of entire chest wall Resp Effort & Inspection: normal respiratory effort and able to speak in complete sentences Auscultation: clear to auscultation bilaterally Cardio Rate: regular rate Rhythm: regular rhythm Heart sounds: S1 normal heart sound present, S2 normal heart sound present and no murmurs GI Inspection: Yes normal to inspection Palpation (GI): Soft to palpation, nontender and no guarding Auscultation: normal bowel sounds General: Yes no CVA tenderness Back/Spine/Pelvis Back: no CVA tenderness Skin Other: Patient has an erythematous, raised rash in patches on his lower extremities over the pretibial region, the rash is nonblanching and does not warm to the touch Neuro General: oriented to person and oriented to place Cranial nerves: Yes CN's II-XII intact bilaterally and Yes Equal, round and reactive pupils present Cognition (Neuro): normal cognition Motor exam (neuro): 5/5 motor strength present throughout Extrem General: Yes normal to inspection Psych Appearance: grossly normal Speech and movement: Normal speech and movement present Affect: normal affect Attitude: cooperative Thought process: Normal thought process present Thought content: Normal thought content present Course Course Course Narrative: 46-year-old male who presents emergency department for evaluation of rash in his lower extremities, the rash has been present for approximately 3 days is pruritic. The patient was camping 3 days prior. The patient's presentation and findings are consistent with contact dermatitis secondary to a plant exposure (poison mahogany). Patient was started on prednisone 60 mg once a day for 7 days. He was given printed and verbal instructions and discharged home. Discharge Plan Discharge Clinical Impression: Allergic dermatitis due to poison mahogany Patient Disposition: Home, Self-Care Instructions: Poison Mahogany (ED) Prescriptions: New prednisone 20 mg tablet 60 mg PO DAILY 7 Days Qty: 21 0RF
== END 2021-10-20 08:43 | disposition home or self-care (01) ==
PROVIDERS: Emergency Provider Emergency Medicine Emergency Medical Services
DX: L23.7 Allergic contact dermatitis due to plants, except food (principal); R21 Rash and other nonspecific skin eruption
CPT/HCPCS: 99282; 99283

== ENCOUNTER 2021-10-21 05:39 | Emergency (ER) | payer MEDICAID, SELFPAY ==
[2021-10-21 05:49] VITALS: BP 107/69; PULSE 58; RESP 16; TEMP 36.8; O2SAT 96; BMI 25.1
--- NOTE | 2021-10-21 06:02 | PC.NURSE ---
Patient just got triage, N referral completed/confirmed/pending ETA, urine pending, med rec completed/patient is not on any medication at this time, will continue to monitor
[2021-10-21 06:16] LABS: COVID-19 Test Negative (Negative)
--- NOTE | 2021-10-21 06:48 | ED.PSYCH ---
HPI - Psych General Chief Complaint: Psychiatric Symptoms Stated Complaint: suicidal Time Seen by Provider: 10/21/21 06:16 Source: patient Mode of arrival: ambulatory Limitations: no limitations History of Present Illness HPI Narrative: 46-year-old transgender female who presents emergency department for evaluation suicidal ideation. The patient seen yesterday in the emergency department rash her lower extremities and seen by the diagnosed with contact dermatitis secondary to poison sheyla. The patient did tell me yesterday that she has a history intranasal cocaine use and she is going to get into a drug treatment program. When I discussed yesterday's with she denies having any memory of the year in the emergency department . She states that she has a history depression and takes lithium and prazosin and has been compliant with his medications. She states that yesterday she developed suicidal ideation and she wants to cut herself but has not acted on these thoughts. She cannot identify a trigger. She denies homicidal ideation. she denies being ill in any other way MD complaint: suicidal ideation Onset (ago): day(s) (1) Duration: constant History of same: Yes Relieving factors: none Exacerbating factors: none Context: other (Cocaine use) Associated psychiatric symptoms: depression Associated symptoms: denies other symptoms Treatments prior to arrival: none If self harm: admits thoughts of self harm Related Data Home Medications Medication Instructions Recorded Confirmed No Known Home Meds 10/21/21 10/21/21 Allergies Allergy/AdvReac Type Severity Reaction Status Date / Time nicotine [From NICODERM CQ] Allergy Mild SHORTNESS Verified 04/10/21 21:50 OF BREATH ketchup [KETCHUP] Allergy Unknown RASH Verified 04/10/21 21:50 onion [ONION] Allergy Unknown RASH Verified 04/10/21 21:50 tomato [TOMATO] Allergy Unknown RASH Verified 04/10/21 21:50 Review of Systems Review of Systems: Yes all other systems are reviewed and are negative [facility] Past Medical History [facility] Narrative: Social history:? The patient smokes 1 pack of cigarettes per day greater than 20 years, patient drinks 1 pt of alcohol per day.? The patient uses intranasal cocaine frequently.? She states that she has gotten into a drug treatment program that started today and does not want crisis counseling. Medical History Bipolar 1 disorder Personality disorder Transgender Social History Social History Alcohol intake: current Alcohol intake frequency: 0-2 drinks per day Alcohol type: hard liquor Patient Tobacco Use Status: Never used Tobacco Substance Use Type: Crack/Cocaine Advance Directives: No Physical Exam Vital Signs: Vital Signs: Last Vital Signs Temp 97.8 F 10/21/21 11:48 Pulse 55 10/21/21 11:48 Resp 18 10/21/21 11:48 BP 111/69 10/21/21 11:48 Pulse Ox 97 10/21/21 11:48 O2 Del Method 10/21/21 11:48 BMI result Body Mass Index 25.1 Const: General: cooperative and no acute distress Orientation/consciousness: oriented to person and oriented to place Limitations: no limitations HEENT: Head: Yes normal to inspection, Yes normocephalic and Yes atraumatic Ears: external ears normal General nose exam: Normal external nose present Face and sinus: Yes normal facial exam Mouth: Normal oral and palatal mucosa present Throat: Yes posterior oropharynx normal Eyes: General: appearance normal, both eyes and all related structures Pupils: Equal, round and reactive pupils present Neck: Neck: Yes normal visual inspection, Yes no lymphadenopathy, Yes trachea midline and Yes supple Chest: Chest palpation & inspection: normal inspection of the chest and normal palpation of entire chest wall Resp: Effort & Inspection: normal respiratory effort and able to speak in complete sentences Auscultation: clear to auscultation bilaterally Cardio: Rate: regular rate Rhythm: regular rhythm Heart sounds: S1 normal heart sound present, S2 normal heart sound present and no murmurs GI: Inspection: Yes normal to inspection Palpation (GI): Soft to palpation, nontender and no guarding Auscultation: normal bowel sounds : General: Yes no CVA tenderness Back/Spine/Pelvis: Back: no CVA tenderness Skin: Other: Raise, nonblanching high erythematous rash to the lower extremities with some areas of excoriation consistent with contact dermatitis no change compared to yesterday's exam Neuro: General: oriented to person and oriented to place Cranial nerves: Yes CN's II-XII intact bilaterally and Yes Equal, round and reactive pupils present Cognition (Neuro): normal cognition Motor exam (neuro): 5/5 motor strength present throughout Extrem: General: Yes normal to inspection Psych: Appearance: grossly normal Speech and movement: Normal speech and movement present Affect: normal affect Attitude: cooperative Thought process: Normal thought process present Thought content: Normal thought content present Course Course Course Narrative: 46-year-old male with history of depression and polysubstance use disorder (cocaine and alcohol ) seen yesterday for contact dermatitis was lower extremities and stated that he was going to get into a treatment program for his polysubstance use. Returned today for evaluation of depression and suicidal ideation with a plan to cut himself. Patient's physical examination was unremarkable, the patient's contact dermatitis is unchanged from yesterday's exam. Laboratory evaluation was ordered. Patient's medications will be reconciled in ordered as well. N consult will be obtained. Patient be treated with prednisone 60 mg once a day for 5 days for his contact dermatitis. 1446: Laboratory evaluation: CBC was normal. BUN elevated 23. Urine tox positive for cocaine. Alcohol levels below detectable limits. COVID-19 was negative. The patient has been evaluated by [facility] and the patient will be discharged back to her care facility ([facility]). [facility] - Psych Lab Data Labs: Lab Results 10/21/21 10/21/21 Range/Units 05:56 13:47 Urine Opiates Screen Not Detected (Not Detect) Urine Fentanyl Screen Not Detected (Not Detect) Ur Barbiturates Screen Not Detected (Not Detect) Ur Phencyclidine Scrn Not Detected (Not Detect) Ur Amphetamines Screen Not Detected (Not Detect) U Benzodiazepines Scrn Not Detected (Not Detect) Urine Cocaine Screen POSITIVE H (Not Detect) U Marijuana (THC) Screen Not Detected (Not Detect) COVID-19 ([place]) Negative (Negative) COVID-19 Clin Com See Note Discharge Plan Discharge Clinical Impression: Suicidal ideation, Cocaine use Patient Disposition: Home, Self-Care Instructions: Cocaine Abuse (ED) Additional Instructions: Your blood work was unremarkable. Your blood alcohol level was below detectable limits. Your urine drug screen was positive for cocaine. Your evaluated by our Behavioral service and artery was sent back to your care facility. Please follow their instructions. Follow-up with your doctor in 2 days. Please return to the emergency department if your symptoms get worse or if you develop any symptoms that are concerning to you. Prescriptions: No Action No Known Home Meds
--- NOTE | 2021-10-21 07:31 | PC.NURSE ---
Patient is sleeping at this time.
[2021-10-21] MEDS: predniSONE 20 MG TABLET 60 MG PO (08:28)
[2021-10-21 11:48] VITALS: BP 111/69; PULSE 55; RESP 18; TEMP 36.6; O2SAT 97
[2021-10-21 14:22] LABS: Amphetamine Screen Urine Not Detected (Not Detect); Barbiturates, Urine Not Detected (Not Detect); Benzodiazepines Screen Urine Not Detected (Not Detect); Cannabinoid Screen Urine Not Detected (Not Detect); Cocaine Screen Urine POSITIVE (Not Detect); Fentanyl, urine Not Detected (Not Detect); Opiate Screen Urine Not Detected (Not Detect); Phencyclidine Screen Urine Not Detected (Not Detect)
--- NOTE | 2021-10-21 14:44 | MHC.CARE ---
Pt is requesting to be discharged. Pt denies current SI/HI. Pt verbalizes understanding how to utilize crisis services if needed. Pt states her plan is to return to the [facility] in [place]. Provider aware.
== END 2021-10-21 15:20 | disposition home or self-care (01) ==
PROVIDERS: Emergency Provider Emergency Medicine Emergency Medical Services
DX: R45.851 Suicidal ideations (principal); F14.90 Cocaine use, unspecified, uncomplicated; F31.9 Bipolar disorder, unspecified; F64.0 Transsexualism; F60.9 Personality disorder, unspecified; F17.210 Nicotine dependence, cigarettes, uncomplicated; Z79.899 Other long term (current) drug therapy; Z20.822 Contact with and (suspected) exposure to COVID-19
CPT/HCPCS: 80307; 87635; 99284

== ENCOUNTER 2021-10-23 02:17 | Emergency (ER) | payer MEDICAID, SELFPAY ==
--- NOTE | ~2021-10-23 | XR_ITS ---
EXAMINATION: XR LUMBOSACRAL SPINE CLINICAL INFORMATION: Back pain. COMPARISON: None TECHNIQUE: Three views of the lumbosacral spine. FINDINGS: Mild dextrocurvature of the lumbar spine. Straightening of the normal lumbar lordosis which may be positional or related to muscular spasm. No acute fracture or subluxation. No loss of vertebral body height. Mild multilevel loss of intervertebral disc height with endplate osteophytes. No lytic or blastic osseous lesion. No abnormal soft tissue calcification. XR/XR lumbar spine 2-3V IMPRESSION: Mild multilevel degenerative disc disease. Straightening of the normal lumbar lordosis which may be positional or related to muscular spasm.
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
[2021-10-23 02:23] VITALS: BP 114/68; PULSE 59; RESP 16; TEMP 36.2; O2SAT 97; BMI 24.5
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
[2021-10-23] MEDS: Acetaminophen 325 MG TABLET 650 MG PO (07:51)
--- NOTE | 2021-10-23 08:14 | PC.NURSE ---
calm and cooperative, took medications po without issue.
[2021-10-23 08:56] VITALS: BP 100/55; PULSE 60; RESP 18; O2SAT 97
== END 2021-10-23 09:55 | disposition home or self-care (01) ==
PROVIDERS: Emergency Provider Emergency Medicine
DX: M54.50 Low back pain, unspecified (principal); M54.2 Cervicalgia; R51.9 Headache, unspecified
CPT/HCPCS: 70450; 72100; 72125; 99283

== ENCOUNTER 2021-10-25 00:12 | Emergency (ER) | payer MEDICAID, SELFPAY ==
[2021-10-25 00:35] VITALS: BP 105/60; PULSE 60; RESP 20; TEMP 36.9; O2SAT 96; BMI 25.1
--- NOTE | 2021-10-25 02:16 | ED_ITS ---
HPI - Nausea/Vomiting/Diarrhea General Chief complaint: Nausea/Vomiting/Diarrhea Stated complaint: vomitting Time Seen by Provider: 10/25/21 02:16 Source: patient Mode of arrival: ambulatory History of Present Illness HPI Narrative: 46-year-old patient who presents complaints of nausea and vomiting throughout the day and denies any recent cocaine use and endorses that there is auditory hallucinations and denies that they are command in nature or instructing to perform self harm. Otherwise suicidal ideation/ depression is denied and denies any fever, chills, GI or symptoms. Related Data Home Medications Medication Instructions Recorded Confirmed No Known Home Meds 10/21/21 10/21/21 Allergies Allergy/AdvReac Type Severity Reaction Status Date / Time nicotine [From NICODERM CQ] Allergy Mild SHORTNESS Verified 10/25/21 00:35 OF BREATH ketchup [KETCHUP] Allergy Unknown RASH Verified 10/25/21 00:35 onion [ONION] Allergy Unknown RASH Verified 10/25/21 00:35 tomato [TOMATO] Allergy Unknown RASH Verified 10/25/21 00:35 Review of Systems Review of Systems: Pertinent positives and negatives as stated in HPI 10 point review of systems is otherwise negative. PMFSH Past Medical History Source: nursing notes reviewed Medical History Bipolar 1 disorder Personality disorder Transgender Social History Social History Alcohol intake: current Alcohol intake frequency: 0-2 drinks per day Alcohol type: hard liquor Patient Tobacco Use Status: Never used Tobacco Substance Use Type: Crack/Cocaine Advance Directives: No Advance Directives Information Provided: Yes Physical Exam Vital Signs: Vital Signs: Last Vital Signs Temp 98.4 F 10/25/21 04:00 Pulse 62 10/25/21 04:00 Resp 18 10/25/21 04:00 BP 110/70 10/25/21 04:00 Pulse Ox 97 10/25/21 04:00 O2 Del Method 10/25/21 04:00 BMI result Body Mass Index 25.1 VITAL SIGNS: Reviewed. GENERAL: Well developed, well nourished, in no acute distress. HEAD: Normocephalic/atraumatic EYES: PERRLA, EOMI EARS: Ext canals without abnormality OROPHARYNX: no oral lesions noted, posterior pharynx clear LUNGS: Normal breath sounds. No adventitious sounds or accessory muscle use. Sp O2<96> CARDIOVASCULAR: Regular rate and rhythm without noted murmurs ABDOMEN: Soft, non-tender, non-distended with bowel sounds. MUSCULOSKELETAL: No tenderness, deformities, or effusions noted on gross inspection. EXTREMITIES: No cyanosis, clubbing or edema. SKIN: Inspection of the skin reveals no rashes NEUROLOGIC: Alert and oriented x 4. Strength and sensation to light touch were grossly intact x 4. PSYCH: calm, normal affect Course Course Course Narrative: 46-year-old with history and clinical presentation consistent with possible gastroenteritis, GERD. Patient will be provided with Zofran as well as a GI cocktail. Re-evaluation of the patient demonstrates ability to tolerate oral intake and now requesting to speak with crisis. Reevaluation(s) Reevaluation #1: Patient placed in physician observation because the patient needed more time for screening by care team. At the time observation was started the patient's vital signs were stable, patient is alert and oriented, neuro: Nonfocal, CV RRR, lungs clear Time: 06:40 Discharge Plan Discharge Clinical Impression: Nausea & vomiting Patient Disposition: Still a Patient Prescriptions: No Action No Known Home Meds
[2021-10-25] MEDS: Magnesium Hydrox/Alum Hydrox 30 ML ORAL.SUSP PO (03:21)
[2021-10-25] MEDS: Lidocaine HCl Viscous 2 % 15 ML SOLUTION 10 ML MUCOUS MEM (03:21)
[2021-10-25] MEDS: Ondansetron ODT 4 MG TAB.RAPDIS TRANSLINGU (03:21)
[2021-10-25 04:00] VITALS: BP 110/70; PULSE 62; RESP 18; TEMP 36.9; O2SAT 97
[2021-10-25 06:00] VITALS: BP 79/44; PULSE 44; RESP 14; TEMP 36.5; O2SAT 95
--- NOTE | 2021-10-25 07:13 | PC.NURSE ---
PT STATES SHE CAME IN FOR MEDICAL BUT IS NOW SI
[2021-10-25 07:21] LABS: Amphetamine Screen Urine Not Detected (Not Detect); Barbiturates, Urine Not Detected (Not Detect); Benzodiazepines Screen Urine Not Detected (Not Detect); Cannabinoid Screen Urine Not Detected (Not Detect); Cocaine Screen Urine POSITIVE (Not Detect); Fentanyl, urine POSITIVE (Not Detect); Opiate Screen Urine Not Detected (Not Detect); Phencyclidine Screen Urine Not Detected (Not Detect)
[2021-10-25 09:05] VITALS: BP 116/61; PULSE 52; RESP 16; TEMP 35.6; O2SAT 96
--- NOTE | 2021-10-25 09:57 | PC.NURSE ---
SMART SHEET DONE AND SUBMITTED
--- NOTE | 2021-10-25 12:03 | MHC.CARE ---
Pt is a 46 y/o male to female transgender person who initially presented to the ED ?with medical complaints.? Upon arrival she denied SI, HI, and self-harm urges.? She endorsed AH but stated that they are not command in nature. At 0713 pt endorsed SI, not divulging a trigger or other cause. At approximately 1130 a risk assessment was conducted with pt.? Pt is alert and oriented x4, denies SI, HI, , AVH, and self-harm urges.? She does not appear delusional or experiencing symptoms of psychosis.? Pt does not meet criteria for inpatient level of care and at this time does not appear to be at risk. Plan is for pt to be discharged home to follow up with current providers.? This disposition was discussed with and agreed upon by CARE [employer] Case ABBOTT, ED Coordinator EMERITA Cody, and ED provider Dr. Stockton.
--- NOTE | 2021-10-25 12:22 | PC.NURSE ---
PT REFUSING MANUSCRIPTS CURATOR INSTRUCTIONS BUT TOOK PAPERWORK AND GIVEN BACK BELONGINGS. READINESS FOR DISCHARGE.
== END 2021-10-25 12:21 | disposition home or self-care (01) ==
PROVIDERS: Student in an Organized Health Care Education/Training Program; Emergency Provider Emergency Medicine
DX: R11.2 Nausea with vomiting, unspecified (principal); R44.0 Auditory hallucinations; F14.90 Cocaine use, unspecified, uncomplicated; R45.851 Suicidal ideations; F31.9 Bipolar disorder, unspecified; F60.9 Personality disorder, unspecified; F64.0 Transsexualism
CPT/HCPCS: 80307; 99283; 99284

== ENCOUNTER 2021-11-02 03:50 | Emergency (ER) | payer MEDICAID, SELFPAY ==
[2021-11-02 03:56] VITALS: BP 114/69; PULSE 74; RESP 16; TEMP 36.8; O2SAT 94; BMI 25.8
--- NOTE | 2021-11-02 04:20 | ED_ITS ---
HPI - Psych General Chief Complaint: Psychiatric Symptoms Stated Complaint: SI Time Seen by Provider: 11/02/21 04:20 Source: patient Mode of arrival: ambulatory Limitations: no limitations History of Present Illness HPI Narrative: 46-year-old male reports suicidal ideation and depression, last cocaine use was 2 days ago by smoking it. No headache, no blurry vision, no stiff neck, no CP, no SOB, no abdominal pain, no nausea, no vomiting, no diarrhea, no urinary symptoms. Related Data Home Medications Medication Instructions Recorded Confirmed No Known Home Meds 10/21/21 10/21/21 Allergies Allergy/AdvReac Type Severity Reaction Status Date / Time nicotine [From NICODERM CQ] Allergy Mild SHORTNESS Verified 10/25/21 00:35 OF BREATH ketchup [KETCHUP] Allergy Unknown RASH Verified 10/25/21 00:35 onion [ONION] Allergy Unknown RASH Verified 10/25/21 00:35 tomato [TOMATO] Allergy Unknown RASH Verified 10/25/21 00:35 Review of Systems Review of Systems: All other systems are reviewed and are negative Constitutional: Reports as per HPI and Reports no additional constitutional complaints Eyes: Reports as per HPI and Reports no additional eye complaints Reports system reviewed and no additional complaints, except as documented Cardiovascular: Reports as per HPI and Reports no additional cardiovascular complaints Respiratory: Reports as per HPI and Reports no additional respiratory complaints Gastrointestinal: Reports as per HPI and Reports no additional gastrointestinal complaints Genitourinary: Reports no additional female genitourinary complaints Musculoskeletal: Reports no additional musculoskeletal complaints Skin/Breast: Reports system reviewed and no additional complaints, except as docu Psychiatric: Reports no additional psychiatric complaints Endocrine: Reports no additional endocrine complaints Hematologic/Lymphatic: Reports no additional hematologic/lymphatic complaints Allergic/Immunologic: Reports no additional allergic/immunologic complaints Reports system reviewed and no additional complaints, except as documented and Reports Abnormal speech present PMFSH Past Medical History Medical History Bipolar 1 disorder Personality disorder Transgender Social History Social History Alcohol intake: current Alcohol intake frequency: 0-2 drinks per day Alcohol type: hard liquor Patient Tobacco Use Status: Never used Tobacco Substance Use Type: Crack/Cocaine Physical Exam Vital Signs: Vital Signs: Last Vital Signs Temp 98.2 F 11/02/21 03:56 Pulse 74 11/02/21 03:56 Resp 16 11/02/21 03:56 BP 114/69 11/02/21 03:56 Pulse Ox 94 11/02/21 03:56 O2 Del Method 11/02/21 03:56 BMI result Body Mass Index 25.8 Vital signs have been reviewed as appeared to be correct. Blood pressure normal. Heart rate normal. Respiration rate normal. Temperature normal. Ox ygen saturation normal. Appearance: Alert. Oriented X3. No acute distress. Head: Normal external exam. Normocephalic. Atraumatic. No Cartwright signs noted. No raccoon eyes noted Eyes: PERRLA. EOMI. Conjunctiva and sclera normal. Eyelids normal. ENT: TM's Normal. Pharynx normal. Uvula midline. Moist mucous membranes. No trismus noted. No drooling noted. No muffled voice noted. Neck: Normal inspection. Neck supple. FROM. No adenopathy. Thyroid Normal. No meningeal signs. No neck mass noted. CVS: Normal heart rate and rhythm. Heart sound normal. No murmurs noted. Pulses normal throughout. Respiratory: No respiratory distress. Painless inspiration. Breath sounds normal. No wheezes/rales/rhonchi noted. Chest nontender. No accessory muscle usage noted or decreased air movement noted. Abdomen: Soft and nontender. Bowel sounds normal in all 4 quadrants. No distention noted. No organomegaly noted. No visible injury noted. Back: No CVA tenderness. Full range of motion noted. Skin: Skin warm and dry. Normal skin color. Normal skin turgor. No rashes/lesions/lacerations noted. Extremities: No lower extremity edema. Extremities exhibit normal range of motion. Extremities nontender. Neuro: Oriented X 3. Cranial nerve exam: II-XII are grossly intact No motor deficit. No sensory deficit. Reflexes normal. Patient Orientation: Person, Place, Time and Situation Level of Consciousness: Awake, Appropriate and Alert Patient Behavior: Appropriate, Guarded, Cooperative and Anxious Mood Description: Constricted, Blunted and Apprehensive Affect Description: Constricted, Blunted and Apprehensive Patient Cognition Impaired: No Ability to Follow Directions: Excellent Speech Pattern: Clear, Appropriate and Spontaneous Speech Memory Description: Intact, Immediate Intact and Short Term Intact Hallucinations: None Delusions: Not Present Thought Process: Intact Thought Content: positive for Intact, positive for Logical, (+) Suicidal Ideation by cutting himself and denies Homicidal Ideation. Depressive Symptoms: Not present Judgement: Good Judgement and Insight: Intact Discharge Plan Discharge Clinical Impression: Suicidal ideation, Depression Patient Disposition: Still a Patient Prescriptions: No Action No Known Home Meds
[2021-11-02 04:31] LABS: COVID-19 Test Negative (Negative)
[2021-11-02 04:46] LABS: Ethanol < 10 mg/dL
--- NOTE | 2021-11-02 11:31 | PC.NURSE ---
PT BEEN SLEEPING THIS MORNING, OCCASIONALLY WAKES UP DEMANDING FOOD
--- NOTE | 2021-11-02 11:37 | PC.NURSE ---
SMART SHEET SENT
[2021-11-02 13:39] LABS: Amphetamine Screen Urine Not Detected (Not Detect); Barbiturates, Urine Not Detected (Not Detect); Benzodiazepines Screen Urine Not Detected (Not Detect); Cannabinoid Screen Urine Not Detected (Not Detect); Cocaine Screen Urine POSITIVE (Not Detect); Fentanyl, urine Not Detected (Not Detect); Opiate Screen Urine POSITIVE (Not Detect); Phencyclidine Screen Urine Not Detected (Not Detect)
== END 2021-11-02 12:15 | disposition home or self-care (01) ==
PROVIDERS: Emergency Medicine; Emergency Provider Emergency Medicine Emergency Medical Services
DX: F33.1 Major depressive disorder, recurrent, moderate (principal); R45.851 Suicidal ideations; Z20.822 Contact with and (suspected) exposure to COVID-19; Z79.899 Other long term (current) drug therapy
CPT/HCPCS: 80307; 82077; 87635; 99284; 99285

== ENCOUNTER 2021-11-05 02:47 | Emergency (ER) | payer MEDICAID, SELFPAY ==
[2021-11-05 03:00] VITALS: BP 128/62; PULSE 60; O2SAT 99
[2021-11-05 03:03] VITALS: BP 128/68; PULSE 60; O2SAT 99
== END 2021-11-05 04:13 | disposition left against medical advice (07) ==
PROVIDERS: Emergency Provider Emergency Medicine
DX: S99.919A Unspecified injury of unspecified ankle, initial encounter (principal); W01.0XXA Fall on same level from slipping, tripping and stumbling without subsequent striking against object, initial encounter; Y93.01 Activity, walking, marching and hiking; Y92.480 Sidewalk as the place of occurrence of the external cause; Y99.9 Unspecified external cause status

== ENCOUNTER 2021-11-08 05:24 | Emergency (ER) | payer MEDICAID, SELFPAY ==
[2021-11-08 05:46] VITALS: BP 104/58; PULSE 52; RESP 16; TEMP 36.3; O2SAT 96; BMI 25.1
--- NOTE | 2021-11-08 06:13 | PC.NURSE ---
pt was brought to hallway bed and stated he was not going to be in the hallway. pt resistive to being in hallway and eventually agreeable. pt was going to be changed over to scrubs by security. pt states im not going to the BR, this RN told pt she cannot change in the middle of the hallway. pt grabbed scrubs off counter and began undressing in the hallway, stating im not going to the BR, if they dont like it they can kiss my ass . pt was told that security still needs to ensure there is nothing else on her person, pt exposed self to show this RN and security their waistband in the Hallway. pt frustrated stating, nat been here plenty of times, i know what im supposed to do, theres no time for rookies here security talked to pt to deescalate with good effect. pt resting in hw on 1:1 sitter
--- NOTE | 2021-11-08 06:18 | ED_ITS ---
HPI - Psych General Chief Complaint: Psychiatric Symptoms Stated Complaint: crisis Time Seen by Provider: 11/08/21 06:17 Source: patient and old records reviewed Mode of arrival: ambulatory Limitations: no limitations History of Present Illness MD complaint: suicidal ideation and feels depressed Onset (ago): day(s) (1) Duration: constant History of same: Yes Relieving factors: none Exacerbating factors: other Context: significant life stressor Associated psychiatric symptoms: depression and suicidal ideation Associated symptoms: denies other symptoms Treatments prior to arrival: none If self harm: admits thoughts of self harm, has plan, has acted on plan and self-inflicted trauma Related Data Home Medications Medication Instructions Recorded Confirmed No Known Home Meds 10/21/21 10/21/21 Allergies Allergy/AdvReac Type Severity Reaction Status Date / Time nicotine [From NICODERM CQ] Allergy Mild SHORTNESS Verified 11/08/21 05:47 OF BREATH ketchup [KETCHUP] Allergy Unknown RASH Verified 11/08/21 05:47 onion [ONION] Allergy Unknown RASH Verified 11/08/21 05:47 tomato [TOMATO] Allergy Unknown RASH Verified 11/08/21 05:47 Review of Systems Review of Systems: Constitutional : No Fever, No Chills ENT/Mouth : No Ear Pain, No Nasal Congestion, No sore throat Eyes: No Eye Pain, No Swelling, No Redness Cardiovascular : No Chest Pain, No SOB Respiratory : No Cough, No Sputum, No Dyspnea Gastrointestinal : No Nausea, No Vomiting, No Diarrhea, No Hematochezia, No Melena Genitourinary : No Dysuria, No Urinary Frequency, No Hematuria Musculoskeletal : No Myalgias Skin : No Skin Lesions, No rash Neuro : No Weakness, No Numbness, No Paresthesias, No Dizziness, No Headache Psych : positive Anxiety, positive Depression, positive SI no HI Heme/Lymph: No Lymphadenopathy Endocrine : No Polyuria, No Polydipsia All other systems reviewed and are negative [facility] Past Medical History Attestation statement: The following information was validated with the patient. Medical History Bipolar 1 disorder Personality disorder Transgender Social History Social History Alcohol intake: current Alcohol intake frequency: 0-2 drinks per day Alcohol type: hard liquor Patient Tobacco Use Status: Never used Tobacco Substance Use Type: Crack/Cocaine Advance Directives: No Advance Directives Information Provided: Yes Physical Exam Vital Signs: Vital Signs: Last Vital Signs Temp 97.3 F 11/08/21 05:46 Pulse 52 11/08/21 05:46 Resp 16 11/08/21 05:46 BP 104/58 L 11/08/21 05:46 Pulse Ox 96 11/08/21 05:46 O2 Del Method 11/08/21 05:46 BMI result Body Mass Index 25.1 Appearance: Alert. Oriented X3. No acute distress. agitated with staff intermittently Eyes: Pupils equal, round and reactive to light. ENT: Pharynx normal. Neck: Normal inspection. Neck supple. CVS: Normal heart rate and rhythm. Pulses normal. Respiratory: No respiratory distress. Breath sounds normal. Abdomen: Soft and nontender. Skin: Skin warm and dry. Normal skin color. Normal skin turgor. very superficial almendarez noted on R anterior forearm Extremities: No lower extremity edema. No calf ttp Neuro: Oriented X 3. No motor deficit. No sensory deficit. CN2-12 intact Course Course Course Narrative: Physician observation started at 624am. Patient placed in physician observation because the patient needed more time for BHN to assess the need for psych admission. At the time observation was started the patient's vitals were stable, patient is alert and oriented but slightly agitated, Neuro: nonfocal, CV RRR, Lungs clear MDM - Psych MDM Narrative Medical decision making narrative: 46 yo patient with hx of mental illness intermittent substance abuse comes in with c/o SI after seeing someone that triggers her. At this time very minor abrasions to left forearm - will need labs and BHN consult Discharge Plan Discharge Clinical Impression: Suicidal ideation Patient Disposition: Still a Patient Prescriptions: No Action No Known Home Meds
[2021-11-08 06:40] LABS: MANUAL DIFF FLAG NO
[2021-11-08 06:42] LABS: Basophils Absolute Auto 0.1 X10*3/uL (0.0-0.2); Basophils Percent Auto 0.9 % (0-2); Eosinophils Absolute Auto 0.5 X10*3/uL (0.0-0.4); Eosinophils Percent Auto 5.1 % (0-4); Hematocrit 38.3 % (42.0-52.0); Hemoglobin 13.4 g/dl (14.0-18.0); Imm Gran Abs Auto 0.02 X10*3/uL (0.00-0.03); Imm Gran Pct Auto 0.2 % (0.0-0.4); Lymphocytes Absolute Auto 3.4 X10*3/uL (1.2-4.9); Lymphocytes Percent Auto 37.8 % (20-40); Mean Corpuscular Hemoglobin 30.9 pg (27.0-33.0); Mean Corpuscular Volume 88.5 fL (80.0-98.0); Mean Platelet Volume 10.5 fL (9.4-12.4); Monocytes Percent Auto 10.7 % (2-11); Neutrophils Percent Auto 45.3 % (45-73); Platelet Count 202 X10*3/uL (160-400); Red Blood Count 4.33 X10*6/uL (4.60-5.80); Red Cell Distribution Width 12.4 % (11.0-16.0); White Blood Count 8.9 X10*3/uL (4.8-10.8)
[2021-11-08 07:00] LABS: Alanine Aminotransferase 13 U/L (0-40); Albumin Level 3.9 g/dL (3.5-5.0); Alkaline Phosphatase 66 U/L (39-117); Anion Gap 13 (12-20); Aspartate Amino Transferase 21 U/L (5-37); Bilirubin Direct 0.5 mg/dL (0.0-0.5); Bilirubin Total 1.1 mg/dL (0.0-1.0); Blood Urea Nitrogen 22 mg/dL (9-16); Calcium 8.7 mg/dL (8.4-10.2); Carbon Dioxide 23 mmol/L (22-29); Chloride 107 mmol/L (96-108); Creatinine Clr Calc Pharmacy 116.8; Estimated Glomerular Filt Rate > 60; Ethanol < 10 mg/dL; Glucose Random 128 mg/dL (60-115); Potassium 3.4 mmol/L (3.3-5.1); Sodium 140 mmol/L (135-145); Total Protein 6.2 g/dL (6.5-8.0)
[2021-11-08 07:02] LABS: COVID-19 Test Negative (Negative); IDNOW Serial# 16C4AD1C
--- NOTE | 2021-11-08 07:26 | PC.NURSE ---
Pt sleeping at this time, 1:1 sitter at bedside, awaiting BHN eval. Will continue to monitor.
[2021-11-08 08:13] LABS: Lithium 0.04 mmol/L (0.60-1.20)
[2021-11-08 08:19] VITALS: BP 102/62; PULSE 49; RESP 14; TEMP 36.6; O2SAT 99
[2021-11-08 08:43] LABS: Amphetamine Screen Urine Not Detected (Not Detect); Barbiturates, Urine Not Detected (Not Detect); Benzodiazepines Screen Urine Not Detected (Not Detect); Cannabinoid Screen Urine Not Detected (Not Detect); Cocaine Screen Urine POSITIVE (Not Detect); Fentanyl, urine Not Detected (Not Detect); Opiate Screen Urine Not Detected (Not Detect); Phencyclidine Screen Urine Not Detected (Not Detect)
== END 2021-11-08 12:20 | disposition home or self-care (01) ==
PROVIDERS: Emergency Provider Emergency Medicine
DX: R45.851 Suicidal ideations (principal); R45.1 Restlessness and agitation; Z20.822 Contact with and (suspected) exposure to COVID-19; F32.A Depression, unspecified; F41.9 Anxiety disorder, unspecified; F60.9 Personality disorder, unspecified; F64.0 Transsexualism; F19.10 Other psychoactive substance abuse, uncomplicated
CPT/HCPCS: 80048; 80076; 80178; 80307; 82077; 85025; 87635; 99284; 99285

== ENCOUNTER 2021-11-11 00:40 | Emergency (ER) | payer MEDICAID, SELFPAY ==
[2021-11-11 00:52] VITALS: BP 105/66; PULSE 52; RESP 16; TEMP 36.6; O2SAT 98; BMI 25.1
--- NOTE | 2021-11-11 01:08 | ED.PSYCH ---
HPI - Psych General Chief Complaint: Psychiatric Symptoms Stated Complaint: SI crisis Time Seen by Provider: 11/11/21 01:08 Source: patient Mode of arrival: ambulatory Limitations: no limitations History of Present Illness HPI Narrative: 46-year-old transgender like to be addressed she when known to the emergency room for frequent visitation for depression and SI, came in today for feeling suicidal, patient claimed that he was attempting to cut his wrist but his father walked in the room and called N, patient is here today still feeling depressed for the past month, no specific plan to commit suicide but feels suicidal, patient declined using any drugs or alcohol in the past 2 days. Patient otherwise decline headache, blurry vision, CP, SOB, abdominal pain, nausea, vomiting, fever, and chills. Related Data Home Medications Medication Instructions Recorded Confirmed No Known Home Meds 11/11/21 11/11/21 Allergies Allergy/AdvReac Type Severity Reaction Status Date / Time nicotine [From NICODERM CQ] Allergy Mild SHORTNESS Verified 11/08/21 05:47 OF BREATH ketchup [KETCHUP] Allergy Unknown RASH Verified 11/08/21 05:47 onion [ONION] Allergy Unknown RASH Verified 11/08/21 05:47 tomato [TOMATO] Allergy Unknown RASH Verified 11/08/21 05:47 Review of Systems Review of Systems: All other systems are reviewed and are negative Constitutional: Reports as per HPI and Reports no additional constitutional complaints Eyes: Reports as per HPI and Reports no additional eye complaints Reports system reviewed and no additional complaints, except as documented Cardiovascular: Reports as per HPI and Reports no additional cardiovascular complaints Respiratory: Reports as per HPI and Reports no additional respiratory complaints Gastrointestinal: Reports as per HPI and Reports no additional gastrointestinal complaints Genitourinary: Reports no additional female genitourinary complaints Musculoskeletal: Reports no additional musculoskeletal complaints Skin/Breast: Reports system reviewed and no additional complaints, except as docu Psychiatric: Reports no additional psychiatric complaints Endocrine: Reports no additional endocrine complaints Hematologic/Lymphatic: Reports no additional hematologic/lymphatic complaints Allergic/Immunologic: Reports no additional allergic/immunologic complaints Reports system reviewed and no additional complaints, except as documented and Reports Abnormal speech present [facility] Past Medical History Medical History Bipolar 1 disorder Personality disorder Transgender Social History Social History Alcohol intake: current Alcohol intake frequency: 0-2 drinks per day Alcohol type: hard liquor Patient Tobacco Use Status: Never used Tobacco Substance Use Type: Crack/Cocaine Advance Directives: No Advance Directives Information Provided: No Physical Exam Vital Signs: Vital Signs: Last Vital Signs Temp 97.9 F 11/11/21 00:52 Pulse 52 11/11/21 00:52 Resp 16 11/11/21 00:52 BP 105/66 11/11/21 00:52 Pulse Ox 98 11/11/21 00:52 O2 Del Method 11/11/21 00:52 BMI result Body Mass Index 25.1 Vital signs have been reviewed as appeared to be correct. Blood pressure normal. Heart rate normal. Respiration rate normal. Temperature normal. Oxygen saturation normal. Appearance: Alert. Oriented X3. No acute distress. Head: Normal external exam. Normocephalic. Atraumatic. No Cartwright signs noted. No raccoon eyes noted Eyes: PERRLA. EOMI. Conjunctiva and sclera normal. Eyelids normal. ENT: TM's Normal. Pharynx normal. Uvula midline. Moist mucous membranes. No trismus noted. No drooling noted. No muffled voice noted. Neck: Normal inspection. Neck supple. FROM. No adenopathy. Thyroid Normal. No meningeal signs. No neck mass noted. CVS: Normal heart rate and rhythm. Heart sound normal. No murmurs noted. Pulses normal throughout. Respiratory: No respiratory distress. Painless inspiration. Breath sounds normal. No wheezes/rales/rhonchi noted. Chest nontender. No accessory muscle usage noted or decreased air movement noted. Abdomen: Soft and nontender. Bowel sounds normal in all 4 quadrants. No distention noted. No organomegaly noted. No visible injury noted. Back: No CVA tenderness. Full range of motion noted. Skin: Skin warm and dry. Normal skin color. Normal skin turgor. No rashes/lesions/lacerations noted. Extremities: No lower extremity edema. Extremities exhibit normal range of motion. Extremities nontender. Neuro: Oriented X 3. Cranial nerve exam: II-XII are grossly intact No motor deficit. No sensory deficit. Reflexes normal. Patient Orientation: Person, Place, Time and Situation Level of Consciousness: Awake, Appropriate and Alert Patient Behavior: Appropriate, Guarded, Cooperative and Anxious Mood Description: Constricted, Blunted and Apprehensive Affect Description: Constricted, Blunted and Apprehensive Patient Cognition Impaired: No Ability to Follow Directions: Excellent Speech Pattern: Clear, Appropriate and Spontaneous Speech Memory Description: Intact, Immediate Intact and Short Term Intact Hallucinations: None Delusions: Not Present Thought Process: Intact Thought Content: positive for Intact, positive Suicidal Ideation but denies Homicidal Ideation. Depressive Symptoms: present Judgement: Good Judgement and Insight: Intact Course Course Course Narrative: 46-year-old transgender female came in with depression and SI, awaiting [facility] in/care team evaluation Discharge Plan Discharge Clinical Impression: Bipolar disorder, Depression Patient Disposition: Still a Patient
[2021-11-11 01:19] LABS: COVID-19 Test Negative (Negative)
[2021-11-11 04:57] LABS: Amphetamine Screen Urine Not Detected (Not Detect); Barbiturates, Urine Not Detected (Not Detect); Benzodiazepines Screen Urine Not Detected (Not Detect); Cannabinoid Screen Urine Not Detected (Not Detect); Cocaine Screen Urine POSITIVE (Not Detect); Fentanyl, urine POSITIVE (Not Detect); Opiate Screen Urine Not Detected (Not Detect); Phencyclidine Screen Urine Not Detected (Not Detect)
[2021-11-11 05:04] VITALS: BP 108/75; PULSE 75; RESP 16; TEMP 37.2; O2SAT 97
--- NOTE | 2021-11-11 06:16 | PC.NURSE ---
Patient slept through the night, no distress observed/reported, BHN referral completed/confirmed/pending ETA, behavior non concerning, VSS, med rec complted/patient is currently not on any medication, will continue to monitor.
--- NOTE | 2021-11-11 10:51 | MHC.CARE ---
CARE Team attempted to meet with Pt who did not wake for t/w. CARE Team will follow up with Pt.
--- NOTE | 2021-11-11 12:04 | MHC.CARE ---
CARE Team met with Pt who is well known to [facility] from frequent ED presentations. Pt states she is feeling depressed and suicidal. Pt is not disclosing specific plan though states she wants to be psychiatric admitted. PT stated she is on the waiting list for [facility] respite. Pt reports she has not followed up with referrals made by the care team for therapy and does not have a current PCP. Pt states she has been off of medications the past year. Plan for CARE Team to consult coordinator regarding plan of care.
--- NOTE | 2021-11-11 17:04 | MHC.CARE ---
Late entry: CARE team meets with pt again today in order to reach disposition. Pt is vague regarding SI, does not disclose plan or intent. CARE Team provides pt with options regarding levels of care including respite, PHP or [facility]. Pt states that she does not want to be placed on a section 12, denying that she is at risk at this time. Pt declines outpatient referrals and asks to be discharged. Pt is not forthcoming with information and is argumentative with TW. Pt appears to be at her baseline functioning. [facility] and PHP are the recommended LOC however referrals declined. Pt asks for a ride to [facility], and appears to be in good spirits at discharge. Plan for discharge is discussed with Dr. Bustillo and ELSIE Khan.
== END 2021-11-11 15:41 | disposition home or self-care (01) ==
PROVIDERS: Emergency Provider Emergency Medicine
DX: F31.9 Bipolar disorder, unspecified (principal); R45.851 Suicidal ideations; F60.9 Personality disorder, unspecified; F64.0 Transsexualism
CPT/HCPCS: 80307; 87635; 99284

== ENCOUNTER 2021-11-12 01:37 | Emergency (ER) | payer MEDICAID, SELFPAY ==
--- NOTE | ~2021-11-12 | CT_ITS ---
EXAMINATION: NONCONTRAST HEAD CT NONCONTRAST CERVICAL SPINE CT INDICATION INFORMATION: Fall. Headache. Cocaine. COMPARISON: 10/23/2021 TECHNIQUE: Separate noncontrast CT examinations of the head and cervical spine were performed. Coronal and sagittal images were created for each examination at the technologist workstation. This CT examination was performed using dose optimization techniques as appropriate, variously including the following: *Automated exposure control *Adjustment of mA and/or kV according to patient size (this includes techniques or standardized protocols for targeted exams where dose is matched to indication/reason for exam; i.e. extremities or head) *Use of iterative reconstruction technique DLP: 1258 mGy-cm FINDINGS: Head: There is no evidence of acute intracranial hemorrhage or territorial infarction. No abnormal mass effect or midline shift is seen. Yanez to white matter differentiation is well preserved. No extra-axial fluid collections are identified. No hydrocephalus. No significant volume loss. There is no abnormal attenuation within the brain parenchyma. No acute osseous or soft tissue abnormality. The mastoid air cells and visualized portions of the paranasal sinuses are well aerated. Cervical spine: There is anatomic alignment of the vertebral bodies and posterior elements. The atlantoaxial and atlantooccipital articulations are intact. Vertebral body heights are maintained. There is multilevel intervertebral disc space narrowing with endplate osteophyte formation and facet arthropathy. No evidence of acute fracture. No prevertebral soft tissue swelling. Mild paraseptal emphysema noted at the lung apices. The thyroid gland is unremarkable. CT/CT cervical spine wo con IMPRESSION: 1. No acute intracranial finding. 2. No fracture or malalignment of the cervical spine. Mild degenerative changes.
--- NOTE | ~2021-11-12 | CT_ITS ---
EXAMINATION: NONCONTRAST HEAD CT NONCONTRAST CERVICAL SPINE CT INDICATION INFORMATION: Fall. Headache. Cocaine. COMPARISON: 10/23/2021 TECHNIQUE: Separate noncontrast CT examinations of the head and cervical spine were performed. Coronal and sagittal images were created for each examination at the technologist workstation. This CT examination was performed using dose optimization techniques as appropriate, variously including the following: *Automated exposure control *Adjustment of mA and/or kV according to patient size (this includes techniques or standardized protocols for targeted exams where dose is matched to indication/reason for exam; i.e. extremities or head) *Use of iterative reconstruction technique DLP: 1258 mGy-cm FINDINGS: Head: There is no evidence of acute intracranial hemorrhage or territorial infarction. No abnormal mass effect or midline shift is seen. Yanez to white matter differentiation is well preserved. No extra-axial fluid collections are identified. No hydrocephalus. No significant volume loss. There is no abnormal attenuation within the brain parenchyma. No acute osseous or soft tissue abnormality. The mastoid air cells and visualized portions of the paranasal sinuses are well aerated. Cervical spine: There is anatomic alignment of the vertebral bodies and posterior elements. The atlantoaxial and atlantooccipital articulations are intact. Vertebral body heights are maintained. There is multilevel intervertebral disc space narrowing with endplate osteophyte formation and facet arthropathy. No evidence of acute fracture. No prevertebral soft tissue swelling. Mild paraseptal emphysema noted at the lung apices. The thyroid gland is unremarkable. CT/CT head/brain wo con IMPRESSION: 1. No acute intracranial finding. 2. No fracture or malalignment of the cervical spine. Mild degenerative changes.
[2021-11-12 01:47] VITALS: BP 115/67; PULSE 56; RESP 18; TEMP 37.1; O2SAT 98; BMI 25.1
--- NOTE | 2021-11-12 02:59 | ED_ITS ---
HPI - General Adult General Chief complaint: Nausea/Vomiting/Diarrhea Stated complaint: fell & hit head, vomiting all day Time Seen by Provider: 11/12/21 02:55 Source: patient Mode of arrival: ambulatory Limitations: no limitations History of Present Illness HPI narrative: Patient comes to the emergency room complaining of a fall that occurred 2 hours prior to arrival. Patient states he fell down the stairs. Patient denies using alcohol or drugs. Patient was seen here less than 24 hours ago, urine was positive for fentanyl and cocaine. Patient denies neck pain When patient arrived in triage, patient told the triage nurse that she has been vomiting all day. Patient denies any nausea vomiting. Related Data Home Medications Medication Instructions Recorded Confirmed No Known Home Meds 11/11/21 11/11/21 Allergies Allergy/AdvReac Type Severity Reaction Status Date / Time nicotine [From NICODERM CQ] Allergy Mild SHORTNESS Verified 11/12/21 01:49 OF BREATH ketchup [KETCHUP] Allergy Unknown RASH Verified 11/12/21 01:49 onion [ONION] Allergy Unknown RASH Verified 11/12/21 01:49 tomato [TOMATO] Allergy Unknown RASH Verified 11/12/21 01:49 Review of Systems Review of Systems: Constitutional : No Weight loss, No Fever, No Chills, No Night Sweats, No Fatigue, No Malaise ENT/Mouth : No Hearing loss, No Ear Pain, No Nasal Congestion, No Sinus Pain, No Hoarseness, No sore throat, No Rhinorrhea, No Swallowing Difficulty Eyes: No Eye Pain, No Swelling, No Redness, No Foreign Body, No Discharge, No Vision Changes Cardiovascular : No Chest Pain, No SOB, No Dyspnea on Exertion, No Orthopnea, No Edema, No Palpitations Respiratory : No Cough, No Sputum, No Wheezing, No Smoke Exposure, No Dyspnea Gastrointestinal : Complaining of nausea vomiting, No Diarrhea, No Constipation, No abdominal Pain, No Hematochezia, No Melena Genitourinary : no irregular bleeding, No Dysuria, No Urinary Frequency, No He maturia, No Urinary Incontinence, No Urgency, No Flank Pain, No Urinary Flow Changes, No Hesitancy Musculoskeletal : No joint pain, No Myalgias, No Joint Swelling Skin : No Skin Lesions, No rash Neuro : No Weakness, No Numbness, No Paresthesias, No Loss of Consciousness, No Dizziness, complaining of a headache after head injury, Psych : No Anxiety/Panic, No Depression, No SI/HI/AH/VH, No Social Issues, Heme/Lymph: No Bruising, No Bleeding,No Lymphadenopathy Endocrine : No Polyuria, No Polydipsia, No Temperature Intolerance [facility] [place] Past Medical History Medical History Bipolar 1 disorder Personality disorder Transgender Social History Social History Alcohol intake: current Alcohol intake frequency: 0-2 drinks per day Alcohol type: hard liquor Patient Tobacco Use Status: Never used Tobacco Substance Use Type: Crack/Cocaine Advance Directives: No Advance Directives Information Provided: Yes Physical Exam ED Vital Signs: Vital Signs - 24 hr 11/12/21 01:47 Temperature 98.8 F Pulse Rate 56 Respiratory Rate 18 Blood Pressure 115/67 Pulse Oximetry 98 Oxygen Delivery Method Room Air BMI result Body Mass Index 25.1 Const Other: Appearance: Alert. Oriented X3. No acute distress. Eyes: Pupils equal, round and reactive to light. ENT: Pharynx normal. Neck: Normal inspection. Neck supple. No lymph nodes noted. No crepitus CVS: Normal heart rate and rhythm. Pulses normal. Normal S1 and S2 Respiratory: No respiratory distress. Breath sounds normal. No Wheezing. No rales Abdomen: Soft and nontender. No rigidity. No distention. Skin: Skin warm and dry. Normal skin color. Normal skin turgor. Extremities: No lower extremity edema. No Lacerations. No Rash Neuro: Oriented X 3. No motor deficit. No sensory deficit. Moving all extremities. No slurred speech. CN 2 through 12 grossly intact Psych: calm, cooperative, normal affect Course Course Course Narrative: Labs and imaging pending Head CT and cervical spine CT within normal limits. Patient's labs unremark able. Medical Decision Making Lab Data Result diagrams: 11/12/21 03:54 11/12/21 03:54 Labs: Lab Results 11/12/21 11/12/21 Range/Units 03:54 03:54 WBC 8.8 (4.8-10.8) X10*3/uL RBC 4.33 L (4.60-5.80) X10*6/uL Hgb 13.4 L (14.0-18.0) g/dl Hct 38.6 L (42.0-52.0) % MCV 89.1 (80.0-98.0) fL MCH 30.9 (27.0-33.0) pg MCHC 34.7 (31.0-36.0) g/dl RDW 12.5 (11.0-16.0) % Plt Count 209 (160-400) X10*3/uL MPV 10.4 (9.4-12.4) fL Immature Gran % (Auto) 0.2 (0.0-0.4) % Neut % (Auto) 54.8 (45-73) % Lymph % (Auto) 31.7 (20-40) % [place] % (Auto) 9.5 (2-11) % Eos % (Auto) 3.3 (0-4) % Baso % (Auto) 0.5 (0-2) % Lymph # (Auto) 2.8 (1.2-4.9) X10*3/uL [place] # (Auto) 0.8 (0.1-1.2) X10*3/uL Eos # (Auto) 0.3 (0.0-0.4) X10*3/uL Baso # (Auto) 0.0 (0.0-0.2) X10*3/uL Abs Immat Gran (auto) 0.02 (0.00-0.03) X10*3/uL Absolute Neuts (auto) 4.8 (2.0-8.3) x10*3/uL Absolute Nucleated RBC 0.000 (0.0-0.012) X10*3/uL Nucleated RBC % (auto) 0.0 (0.0-0.2) /100WBC Sodium 142 (135-145) mmol/L Potassium 3.8 (3.3-5.1) mmol/L Chloride 108 (96-108) mmol/L Carbon Dioxide 25 (22-29) mmol/L Anion Gap 13 (12-20) BUN 16 (9-16) mg/dL Creatinine 0.82 (0.5-1.4) mg/dL Estim Creat Clear Calc 121.1 Estimated GFR > 60 Random Glucose 104 (60-115) mg/dL Calcium 8.6 (8.4-10.2) mg/dL Imaging Data Head and cervical spine CT: Radiologist's impression: INDINGS: Head: There is no evidence of acute intracranial hemorrhage or territorial infarction. No abnormal mass effect or midline shift is seen. Yanez to white matter differentiation is well preserved. No extra-axial fluid collections are identified. No hydrocephalus. No significant volume loss. There is no abnormal attenuation within the brain parenchyma. No acute osseous or soft tissue abnormality. The mastoid air cells and visualized portions of the paranasal sinuses are well aerated. Cervical spine: There is anatomic alignment of the vertebral bodies and posterior elements. The atlantoaxial and atlantooccipital articulations are intact. Vertebral body heights are maintained. There is multilevel intervertebral disc space narrowing with endplate osteophyte formation and facet arthropathy. No evidence of acute fracture. No prevertebral soft tissue swelling. Mild paraseptal emphysema noted at the lung apices. The thyroid gland is unremarkable. CT/CT cervical spine wo con IMPRESSION: ? 1. No acute intracranial finding. 2. No fracture or malalignment of the cervical spine. Mild degenerative changes. Discharge Plan Discharge Clinical Impression: Nausea & vomiting, Fall, Head injury Patient Disposition: Home, Self-Care Instructions: Fall Prevention (ED), Acute Nausea and Vomiting (ED) Additional Instructions: Please follow-up with your primary care physician tomorrow. If you have any worsening or new symptoms, please return to the emergency room or call 911 Prescriptions: No Action No Known Home Meds
[2021-11-12 03:59] LABS: Basophils Percent Auto 0.5 % (0-2); Eosinophils Absolute Auto 0.3 X10*3/uL (0.0-0.4); Eosinophils Percent Auto 3.3 % (0-4); Hematocrit 38.6 % (42.0-52.0); Hemoglobin 13.4 g/dl (14.0-18.0); Imm Gran Abs Auto 0.02 X10*3/uL (0.00-0.03); Imm Gran Pct Auto 0.2 % (0.0-0.4); Lymphocytes Absolute Auto 2.8 X10*3/uL (1.2-4.9); Lymphocytes Percent Auto 31.7 % (20-40); MANUAL DIFF FLAG NO; Mean Corpuscular HGB Conc 34.7 g/dl (31.0-36.0); Mean Corpuscular Hemoglobin 30.9 pg (27.0-33.0); Mean Corpuscular Volume 89.1 fL (80.0-98.0); Mean Platelet Volume 10.4 fL (9.4-12.4); Monocytes Absolute Auto 0.8 X10*3/uL (0.1-1.2); Monocytes Percent Auto 9.5 % (2-11); Neutrophils Absolute Auto 4.8 x10*3/uL (2.0-8.3); Neutrophils Percent Auto 54.8 % (45-73); Platelet Count 209 X10*3/uL (160-400); Red Blood Count 4.33 X10*6/uL (4.60-5.80); Red Cell Distribution Width 12.5 % (11.0-16.0); White Blood Count 8.8 X10*3/uL (4.8-10.8)
[2021-11-12 04:16] LABS: Anion Gap 13 (12-20); Blood Urea Nitrogen 16 mg/dL (9-16); Calcium 8.6 mg/dL (8.4-10.2); Carbon Dioxide 25 mmol/L (22-29); Chloride 108 mmol/L (96-108); Creatinine Clr Calc Pharmacy 121.1; Estimated Glomerular Filt Rate > 60; Glucose Random 104 mg/dL (60-115); Potassium 3.8 mmol/L (3.3-5.1); Sodium 142 mmol/L (135-145)
--- NOTE | 2021-11-12 04:22 | PC.NURSE ---
Per MD richardson, pt to remain NPO at this time. No gingerale to be offered per
[2021-11-12] MEDS: Promethazine HCL 25 MG TABLET PO (07:07)
[2021-11-12 07:10] VITALS: BP 105/62; PULSE 76; RESP 18; O2SAT 100
== END 2021-11-12 07:10 | disposition home or self-care (01) ==
PROVIDERS: Emergency Provider Emergency Medicine
DX: R11.2 Nausea with vomiting, unspecified (principal); S09.90XA Unspecified injury of head, initial encounter; W10.8XXA Fall (on) (from) other stairs and steps, initial encounter; F31.9 Bipolar disorder, unspecified; F60.9 Personality disorder, unspecified; F64.0 Transsexualism; Y93.9 Activity, unspecified; Y92.9 Unspecified place or not applicable; Y99.9 Unspecified external cause status
CPT/HCPCS: 36415; 70450; 72125; 80048; 85025; 99283; 99284

== ENCOUNTER 2021-11-13 03:21 | Emergency (ER) | payer MEDICAID, SELFPAY ==
[2021-11-13 03:30] VITALS: BP 117/47; PULSE 54; RESP 18; TEMP 36.6; O2SAT 98; BMI 22.4
--- NOTE | 2021-11-13 03:48 | ED_ITS ---
HPI - Psych General Chief Complaint: Psychiatric Symptoms Stated Complaint: SI Time Seen by Provider: 11/13/21 03:43 Source: patient Mode of arrival: ambulatory Limitations: no limitations History of Present Illness HPI Narrative: Patient comes to the emergency room complaining of suicidal ideation . Patient states that she plans to cut her wrists. This is the 4th time the patient comes to emergency room. Patient denies HI. Related Data Home Medications Medication Instructions Recorded Confirmed No Known Home Meds 11/11/21 11/11/21 Allergies Allergy/AdvReac Type Severity Reaction Status Date / Time nicotine [From NICODERM CQ] Allergy Mild SHORTNESS Verified 11/13/21 03:30 OF BREATH ketchup [KETCHUP] Allergy Unknown RASH Verified 11/13/21 03:30 onion [ONION] Allergy Unknown RASH Verified 11/13/21 03:30 tomato [TOMATO] Allergy Unknown RASH Verified 11/13/21 03:30 Review of Systems Review of Systems: Constitutional : No Weight loss, No Fever, No Chills, No Night Sweats, No Fatigue, No Malaise ENT/Mouth : No Hearing loss, No Ear Pain, No Nasal Congestion, No Sinus Pain, No Hoarseness, No sore throat, No Rhinorrhea, No Swallowing Difficulty Eyes: No Eye Pain, No Swelling, No Redness, No Foreign Body, No Discharge, No Vision Changes Cardiovascular : No Chest Pain, No SOB, No Dyspnea on Exertion, No Orthopnea, No Edema, No Palpitations Respiratory : No Cough, No Sputum, No Wheezing, No Smoke Exposure, No Dyspnea Gastrointestinal : No Nausea, No Vomiting, No Diarrhea, No Constipation, No abdominal Pain, No Hematochezia, No Melena Genitourinary : no irregular bleeding, No Dysuria, No Urinary Frequency, No Hematuria, No Urinary Incontinence, No Urgency, No Flank Pain, No Urinary Flow Changes, No Hesitancy Musculoskeletal : No joint pain, No Myalgias, No Joint Swelling Skin : No Skin Lesions, No rash Neuro : No Weakness, No Numbness, No Paresthesias, No Loss of Consciousness, No Dizziness, No Headache Psych : Patient complaining SI, no HI. Heme/Lymph: No Bruising, No Bleeding,No Lymphadenopathy Endocrine : No Polyuria, No Polydipsia, No Temperature Intolerance PMFSH Past Medical History Medical History Bipolar 1 disorder Personality disorder Transgender Social History Social History Alcohol intake: current Alcohol intake frequency: 0-2 drinks per day Alcohol type: hard liquor Patient Tobacco Use Status: Never used Tobacco Substance Use Type: Crack/Cocaine Advance Directives: No Advance Directives Information Provided: Yes Physical Exam Vital Signs: Vital Signs: Last Vital Signs Temp 97.9 F 11/13/21 03:30 Pulse 54 11/13/21 03:30 Resp 18 11/13/21 03:30 BP 117/47 L 11/13/21 03:30 Pulse Ox 98 11/13/21 03:30 O2 Del Method 11/13/21 03:30 BMI result Body Mass Index 22.4 Const: Other: Appearance: Alert. Oriented X3. No acute distress. Eyes: Pupils equal, round and reactive to light. ENT: Pharynx normal. Neck: Normal inspection. Neck supple. No lymph nodes noted. No crepitus CVS: Normal heart rate and rhythm. Pulses normal. Normal S1 and S2 Respiratory: No respiratory distress. Breath sounds normal. No Wheezing. No ra les Abdomen: Soft and nontender. No rigidity. No distention. Skin: Skin warm and dry. Normal skin color. Normal skin turgor. Extremities: No lower extremity edema. No Lacerations. No Rash Neuro: Oriented X 3. No motor deficit. No sensory deficit. Moving all extremities. No slurred speech. CN 2 through 12 grossly intact Psych: calm, a bit belligerent, calling staff stupid, stating he wants to rina [facility] Course Course Course Narrative: [facility] consult pending Physician observation started at 03:50 Discharge Plan Discharge Clinical Impression: Bipolar disorder, Suicidal ideation Patient Disposition: Still a Patient Prescriptions: No Action No Known Home Meds
--- NOTE | 2021-11-13 04:38 | PC.NURSE ---
Online [facility] referral completed by this RN.
[2021-11-13 04:48] LABS: Amphetamine Screen Urine Not Detected (Not Detect); Barbiturates, Urine Not Detected (Not Detect); Benzodiazepines Screen Urine Not Detected (Not Detect); Cannabinoid Screen Urine Not Detected (Not Detect); Cocaine Screen Urine POSITIVE (Not Detect); Fentanyl, urine POSITIVE (Not Detect); Opiate Screen Urine Not Detected (Not Detect); Phencyclidine Screen Urine Not Detected (Not Detect)
[2021-11-13 06:00] VITALS: BP 97/43; PULSE 58; RESP 16; TEMP 36.6; O2SAT 96
--- NOTE | 2021-11-13 08:25 | MHC.CARE ---
CARE Team provided ED with CARE Plan
== END 2021-11-13 12:24 | disposition home or self-care (01) ==
PROVIDERS: Emergency Provider Emergency Medicine
DX: F33.1 Major depressive disorder, recurrent, moderate (principal); R45.851 Suicidal ideations; F14.10 Cocaine abuse, uncomplicated; Z79.899 Other long term (current) drug therapy
CPT/HCPCS: 80307; 99283

== ENCOUNTER 2021-11-16 08:24 | Emergency (ER) | payer MEDICAID, SELFPAY ==
[2021-11-16 08:29] VITALS: BP 110/68; PULSE 66; RESP 18; TEMP 36.1; O2SAT 97; BMI 25.1
--- NOTE | 2021-11-16 08:38 | ED.GENADULT ---
HPI - General Adult General Chief complaint: Nausea/Vomiting/Diarrhea Stated complaint: vomiting x2 days Time Seen by Provider: 11/16/21 08:37 Source: patient Mode of arrival: ambulatory Limitations: no limitations Related Data Home Medications Medication Instructions Recorded Confirmed No Known Home Meds 11/11/21 11/11/21 Allergies Allergy/AdvReac Type Severity Reaction Status Date / Time nicotine [From NICODERM CQ] Allergy Mild SHORTNESS Verified 11/13/21 03:30 OF BREATH ketchup [KETCHUP] Allergy Unknown RASH Verified 11/13/21 03:30 onion [ONION] Allergy Unknown RASH Verified 11/13/21 03:30 tomato [TOMATO] Allergy Unknown RASH Verified 11/13/21 03:30 PMFSH Past Medical History Medical History Bipolar 1 disorder Personality disorder Transgender Social History Social History Alcohol intake: current Alcohol intake frequency: 0-2 drinks per day Alcohol type: hard liquor Patient Tobacco Use Status: Never used Tobacco Substance Use Type: Crack/Cocaine Physical Exam ED Vital Signs: Vital Signs - 24 hr 11/16/21 08:29 Temperature 97 F Pulse Rate 66 Respiratory Rate 18 Blood Pressure 110/68 Pulse Oximetry 97 Oxygen Delivery Method Room Air BMI result Body Mass Index 25.1 Discharge Plan Discharge Prescriptions: No Action No Known Home Meds
--- NOTE | 2021-11-16 09:25 | ED.NAVMDI ---
HPI - Nausea/Vomiting/Diarrhea General Chief complaint: Nausea/Vomiting/Diarrhea Stated complaint: vomiting x2 days Time Seen by Provider: 11/16/21 08:37 Source: patient Mode of arrival: ambulatory History of Present Illness HPI Narrative: 46-year-old transgender female with a past medical history of bipolar, personality disorder, presenting to the ED complaining of nausea, vomiting, and diarrhea times 2-3 days. Reports about 8 episodes of emesis daily with inability to tolerate p.o. admits to associated abdominal cramping. denies fever, chills, suspicious food intake, recent travel, dysuria/hematuria MD elicited complaint: nausea, vomiting, diarrhea and abdominal pain Related Data Previous Rx's Medication Instructions Recorded ondansetron 4 mg disintegrating 4 mg PO Q8H PRN nausea and 11/16/21 tablet vomiting #10 tabs Allergies Allergy/AdvReac Type Severity Reaction Status Date / Time nicotine [From NICODERM CQ] Allergy Mild SHORTNESS Verified 11/13/21 03:30 OF BREATH ketchup [KETCHUP] Allergy Unknown RASH Verified 11/13/21 03:30 onion [ONION] Allergy Unknown RASH Verified 11/13/21 03:30 tomato [TOMATO] Allergy Unknown RASH Verified 11/13/21 03:30 Review of Systems Review of Systems: Constitutional: No Fever, No Chills, No Fatigue, No Malaise ENT/Mouth: No Hearing loss, No Ear Pain, No Nasal Congestion, No Sinus Pain, No Hoarseness, No sore throat, No Rhinorrhea, No Swallowing Difficulty Eyes: No Eye Pain, No Swelling, No Redness Cardiovascular: No Chest Pain, No SOB, No Edema, No Palpitations Respiratory: No Cough, No Sputum, No Dyspnea Gastrointestinal: + Nausea, + Vomiting, + Diarrhea, No Constipation, + Abdominal pain Genitourinary: No Dysuria, No Urinary Frequency, No Hematuria, No Urinary Incontinence/retention, No Flank Pain, No Urinary Flow Changes Musculoskeletal: No joint pain, No Myalgias, No Joint Swelling Skin: No Skin Lesions, No rash Neuro: No Weakness, No Dizziness, No Headache Yes all other systems are reviewed and are negative Constitutional: Constitutional: Reports as per [facility] Past Medical History Attestation statement: The following information was validated with the patient. Medical History Bipolar 1 disorder Personality disorder Transgender Social History Social History Alcohol intake: current Alcohol intake frequency: 0-2 drinks per day Alcohol type: hard liquor Patient Tobacco Use Status: Never used Tobacco Substance Use Type: Crack/Cocaine Advance Directives: No Advance Directives Information Provided: No Physical Exam Vital Signs: Vital Signs: Last Vital Signs Temp 97 F 11/16/21 08:29 Pulse 66 11/16/21 08:29 Resp 18 11/16/21 08:29 BP 110/68 11/16/21 08:29 Pulse Ox 97 11/16/21 08:29 O2 Del Method 11/16/21 08:29 BMI result Body Mass Index 25.1 Const: General: cooperative, healthy appearing and no acute distress Orientation/consciousness: patient oriented x3 Limitations: no limitations HEENT: Head: Yes normal to inspection and Yes atraumatic Ears: hearing grossly normal bilaterally General nose exam: Normal external nose present Face and sinus: Yes normal facial exam Eyes: General: appearance normal, both eyes and all related structures EOM: EOMs intact bilaterally Neck: Neck: Yes normal visual inspection and Yes no meningeal signs Resp: Effort & Inspection: normal respiratory effort and no respiratory distress Auscultation: clear to auscultation bilaterally Cardio: Rate: regular rate Heart sounds: S1 normal heart sound present and S2 normal heart sound present GI: Inspection: Yes normal to inspection Palpation (GI): Soft to palpation, Tenderness to palpation present (GI) in the epigastrum; with no rebound tenderness, no guarding and not rigid Skin: Rashes: no rashes Wounds: no wounds Neuro: General: patient oriented x3, tone normal and no meningeal signs Gait exam (Neuro): Normal gait present Extrem: General: Yes normal to inspection Course Course Course Narrative: -patient tolerating p.o. Catrachita Malaika in the ED w/o nausea or vomiting 1115--labs unremarkable. UA negative Results discussed with patient including worrisome signs and symptoms and strict return precautions, and when to return to the emergency department. They verbalized understanding and feel safe for discharge at this time. MDM - Nausea/Vomiting/Diarrhea MDM Narrative Medical decision making narrative: 46-year-old transgender female with a past medical history of bipolar, personality disorder, presenting to the ED complaining of nausea, vomiting, and diarrhea times 2-3 days. On exam VSS, NAD, well appearing, abd soft with epigastric ttp no rebound or guarding. Concern for gastroenteritis vs gastritis vs GERD vs pancreaittis. Low suspicion for appendicitis/diverticulitis or cholecystitis/lithiasis Plan: Labs, UA antiemetics, p.o. challenge Differential Diagnosis Differential diagnosis: Likely traveler's diarrhea, food poisoning, gastroenteritis, drug-induced nausea and vomiting and dehydration Medical Records Attestation: I reviewed the patient's medical records. Lab Data Attestation: I reviewed the patient's lab results. Result diagrams: 11/16/21 09:33 11/16/21 09:33 Labs: Lab Results 11/16/21 11/16/21 11/16/21 Range/Units 09:33 09:33 10:57 WBC 8.2 (4.8-10.8) X10*3/uL RBC 4.73 (4.60-5.80) X10*6/uL Hgb 14.6 (14.0-18.0) g/dl Hct 42.7 (42.0-52.0) % MCV 90.3 (80.0-98.0) fL MCH 30.9 (27.0-33.0) pg MCHC 34.2 (31.0-36.0) g/dl RDW 12.4 (11.0-16.0) % Plt Count 240 (160-400) X10*3/uL MPV 11.0 (9.4-12.4) fL Immature Gran % (Auto) 0.4 (0.0-0.4) % Neut % (Auto) 50.3 (45-73) % Lymph % (Auto) 31.6 (20-40) % [place] % (Auto) 10.3 (2-11) % Eos % (Auto) 6.5 H (0-4) % Baso % (Auto) 0.9 (0-2) % Lymph # (Auto) 2.6 (1.2-4.9) X10*3/uL [place] # (Auto) 0.8 (0.1-1.2) X10*3/uL Eos # (Auto) 0.5 H (0.0-0.4) X10*3/uL Baso # (Auto) 0.1 (0.0-0.2) X10*3/uL Abs Immat Gran (auto) 0.03 (0.00-0.03) X10*3/uL Absolute Neuts (auto) 4.1 (2.0-8.3) x10*3/uL Absolute Nucleated RBC 0.000 (0.0-0.012) X10*3/uL Nucleated RBC % (auto) 0.0 (0.0-0.2) /100WBC Sodium 142 (135-145) mmol/L Potassium 3.9 (3.3-5.1) mmol/L Chloride 107 (96-108) mmol/L Carbon Dioxide 27 (22-29) mmol/L Anion Gap 12 (12-20) BUN 17 H (9-16) mg/dL Creatinine 0.91 (0.5-1.4) mg/dL Estim Creat Clear Calc 109.1 Estimated GFR > 60 Random Glucose 108 (60-115) mg/dL Calcium 8.5 (8.4-10.2) mg/dL Magnesium 1.9 (1.6-2.6) mg/dL Total Bilirubin 0.7 (0.0-1.0) mg/dL Direct Bilirubin 0.3 (0.0-0.5) mg/dL AST 17 (5-37) U/L ALT 12 (0-40) U/L Alkaline Phosphatase 70 (39-117) U/L Total Protein 6.4 L (6.5-8.0) g/dL Albumin 3.9 (3.5-5.0) g/dL Lipase 18 (8-78) U/L Urine Color Yellow Urine Appearance Clear Urine pH 6.0 (5.0-8.0) Ur Specific [place] 1.015 (1.005-1.025) Urine Protein Negative (Neg-Trace) mg/dL Urine Glucose (UA) Negative (Negative) mg/dL Urine Ketones Negative (Negative) mg/dL Urine Blood Negative (Negative) Urine Nitrite Negative (Negative) Ur Leukocyte Esterase Negative (Negative) Discharge Plan Discharge Clinical Impression: Gastroenteritis Patient Disposition: Home, Self-Care Instructions: Gastroenteritis (ED) Additional Instructions: Your blood work and urine were reassuring. Zofran as antinausea medication, take as needed. Please follow-up with your doctor. Practice a bland diet, avoid spicy foods, sweets, caffeine, sugar. If you are unable to eat or drink, developed persistent worsening abdominal pain or fever return to the ED Prescriptions: New ondansetron 4 mg tablet,disintegrating 4 mg PO Q8H PRN (Reason: nausea and vomiting) Qty: 10 0RF Referrals: Physician,None [Primary Care Provider] -
[2021-11-16 09:40] LABS: MANUAL DIFF FLAG NO
[2021-11-16] MEDS: Ondansetron ODT 4 MG TAB.RAPDIS TRANSLINGU (09:54)
[2021-11-16] MEDS: Famotidine 20 MG TABLET PO (09:54)
[2021-11-16] MEDS: Magnesium Hydrox/Alum Hydrox 30 ML ORAL.SUSP PO (09:55)
[2021-11-16 10:02] LABS: Alanine Aminotransferase 12 U/L (0-40); Albumin Level 3.9 g/dL (3.5-5.0); Alkaline Phosphatase 70 U/L (39-117); Anion Gap 12 (12-20); Aspartate Amino Transferase 17 U/L (5-37); Bilirubin Direct 0.3 mg/dL (0.0-0.5); Bilirubin Total 0.7 mg/dL (0.0-1.0); Blood Urea Nitrogen 17 mg/dL (9-16); Calcium 8.5 mg/dL (8.4-10.2); Carbon Dioxide 27 mmol/L (22-29); Chloride 107 mmol/L (96-108); Creatinine Clr Calc Pharmacy 109.1; Estimated Glomerular Filt Rate > 60; Glucose Random 108 mg/dL (60-115); Lipase 18 U/L (8-78); Magnesium 1.9 mg/dL (1.6-2.6); Potassium 3.9 mmol/L (3.3-5.1); Sodium 142 mmol/L (135-145); Total Protein 6.4 g/dL (6.5-8.0)
[2021-11-16 10:06] LABS: Basophils Absolute Auto 0.1 X10*3/uL (0.0-0.2); Basophils Percent Auto 0.9 % (0-2); Eosinophils Absolute Auto 0.5 X10*3/uL (0.0-0.4); Eosinophils Percent Auto 6.5 % (0-4); Hematocrit 42.7 % (42.0-52.0); Hemoglobin 14.6 g/dl (14.0-18.0); Imm Gran Abs Auto 0.03 X10*3/uL (0.00-0.03); Imm Gran Pct Auto 0.4 % (0.0-0.4); Lymphocytes Absolute Auto 2.6 X10*3/uL (1.2-4.9); Lymphocytes Percent Auto 31.6 % (20-40); Mean Corpuscular HGB Conc 34.2 g/dl (31.0-36.0); Mean Corpuscular Hemoglobin 30.9 pg (27.0-33.0); Mean Corpuscular Volume 90.3 fL (80.0-98.0); Monocytes Absolute Auto 0.8 X10*3/uL (0.1-1.2); Monocytes Percent Auto 10.3 % (2-11); Neutrophils Absolute Auto 4.1 x10*3/uL (2.0-8.3); Neutrophils Percent Auto 50.3 % (45-73); Platelet Count 240 X10*3/uL (160-400); Red Blood Count 4.73 X10*6/uL (4.60-5.80); Red Cell Distribution Width 12.4 % (11.0-16.0); White Blood Count 8.2 X10*3/uL (4.8-10.8)
[2021-11-16 11:03] LABS: Appearance Urine Clear; Color Urine Yellow; Glucose Urine UA Negative (Negative); Leukocyte Esterase Urine Negative (Negative); Nitrite Urine Negative (Negative); Specific Gravity - Urine 1.015 (1.005-1.025); Urine Blood Negative (Negative); Urine Ketones Negative (Negative); Urine Protein Negative (Neg-Trace)
== END 2021-11-16 11:35 | disposition home or self-care (01) ==
PROVIDERS: Physician Assistant; Emergency Provider Emergency Medicine
DX: K52.9 Noninfective gastroenteritis and colitis, unspecified (principal); R11.2 Nausea with vomiting, unspecified
CPT/HCPCS: 36415; 80048; 80076; 81003; 83690; 83735; 85025; 99283

== ENCOUNTER 2021-11-22 01:51 | Emergency (ER) | payer MEDICAID, SELFPAY ==
[2021-11-22 01:54] VITALS: BP 121/65; PULSE 60; RESP 16; TEMP 36.8; O2SAT 96; BMI 25.1
--- NOTE | 2021-11-22 02:25 | PC.NURSE ---
Blood drawn for CBCD and CMP per MD orders, pt refused IV line placement.
--- NOTE | 2021-11-22 02:26 | ED_ITS ---
HPI - Nausea/Vomiting/Diarrhea General Chief complaint: Nausea/Vomiting/Diarrhea Stated complaint: General Medical? Time Seen by Provider: 11/22/21 02:26 Source: patient Mode of arrival: ambulatory Limitations: no limitations History of Present Illness HPI Narrative: Patient with nausea, vomiting and diarrhea. he feels like he might have had some blood streaks in his vomiting for the past 2 days. MD elicited complaint: nausea, vomiting and diarrhea Onset (ago): day(s) Associated nausea: Yes Associated abdominal pain: Yes Location of pain: diffuse Pain consistency: intermittent Severity: mild Quality: cramping Exacerbating factors: none Relieving factors: none Associated symptoms: weakness Related Data Previous Rx's Medication Instructions Recorded ondansetron 4 mg disintegrating 4 mg PO Q8H PRN nausea and 11/16/21 tablet vomiting #10 tabs ondansetron 4 mg disintegrating 4 mg PO Q8H 4 days #12 tabs 11/22/21 tablet pantoprazole 40 mg tablet,delayed 40 mg PO DAILY #20 tabs 11/22/21 release (Protonix) Allergies Allergy/AdvReac Type Severity Reaction Status Date / Time nicotine [From NICODERM CQ] Allergy Mild SHORTNESS Verified 11/22/21 01:54 OF BREATH ketchup [KETCHUP] Allergy Unknown RASH Verified 11/22/21 01:54 onion [ONION] Allergy Unknown RASH Verified 11/22/21 01:54 tomato [TOMATO] Allergy Unknown RASH Verified 11/22/21 01:54 Review of Systems Constitutional: Constitutional: Reports no additional constitutional complaints Eyes: Eyes: Reports no additional eye complaints ENT: Denies dizziness Cardiovascular: Cardiovascular: Reports no additional cardiovascular co mplaints Respiratory: Respiratory: Reports as per HPI Gastrointestinal: Gastrointestinal: Reports nausea Musculoskeletal: Musculoskeletal: Reports no additional musculoskeletal complaints Integumentary/Breasts: Skin/Breast: Denies rash Neurologic: Reports system reviewed and no additional complaints, except as documented, Denies dizziness and Denies Sensory deficit (Neuro) Psychiatric: Psychiatric: Denies anxiety PMFSH Past Medical History Medical History Bipolar 1 disorder Personality disorder Transgender Social History Social History Alcohol intake: current Alcohol intake frequency: 0-2 drinks per day Alcohol type: hard liquor Patient Tobacco Use Status: Never used Tobacco Substance Use Type: Crack/Cocaine Advance Directives: No Advance Directives Information Provided: No Physical Exam Vital Signs: Vital Signs: Last Vital Signs Temp 98.3 F 11/22/21 01:54 Pulse 60 11/22/21 01:54 Resp 16 11/22/21 01:54 BP 121/65 11/22/21 01:54 Pulse Ox 96 11/22/21 01:54 O2 Del Method 11/22/21 01:54 BMI result Body Mass Index 25.1 Const: General: healthy appearing Nutritional Appearance: average body habitus Orientation/consciousness: oriented to person and patient oriented x3 Limitations: no limitations HEENT: Head: Yes normal to inspection Ears: external ears normal General nose exam: Normal external nose present Mouth: Normal oral and palatal mucosa present and oropharynx normal Throat: Yes posterior oropharynx normal Eyes: General: appearance normal, both eyes and all related structures Neck: Other: supple Neck: Yes normal visual inspection Chest: Chest palpation & inspection: normal inspection of the chest Resp: Auscultation: clear to auscultation bilaterally Cardio: Jugular venous distension: no JVD Rate: regular rate Rhythm: regular rhythm Heart sounds: S1 normal heart sound present and S2 normal heart sound present GI: Inspection: Yes normal to inspection Palpation (GI): Soft to palpation, nontender and No hepatosplenomegaly present Auscultation: normal bowel sounds : Other: rectal brown stool heme negative General: Yes no CVA tenderness Back/Spine/Pelvis: Back: no CVA tenderness Skin: General skin exam: no rashes or lesions noted Neuro: General: oriented to person and patient oriented x3 Cranial nerves: Yes CN's II-XII intact bilaterally Motor exam (neuro): 5/5 motor strength present throughout Sensory Exam: No Sensory deficit (Neuro) Extrem: General: Yes normal to inspection Psych: Appearance: grossly normal Course Reevaluation(s) Reevaluation #1: patient is stable not active bleeding will dc home on protonix and zofran Time: 03:03 MDM - Nausea/Vomiting/Diarrhea Lab Data Result diagrams: 11/22/21 02:20 11/22/21 02:20 Labs: Lab Results 11/22/21 11/22/21 Range/Units 02:20 02:20 WBC 10.8 (4.8-10.8) X10*3/uL RBC 4.81 (4.60-5.80) X10*6/uL Hgb 14.5 (14.0-18.0) g/dl Hct 42.1 (42.0-52.0) % MCV 87.5 (80.0-98.0) fL MCH 30.1 (27.0-33.0) pg MCHC 34.4 (31.0-36.0) g/dl RDW 12.2 (11.0-16.0) % Plt Count 240 (160-400) X10*3/uL MPV 10.4 (9.4-12.4) fL Immature Gran % (Auto) 0.4 (0.0-0.4) % Neut % (Auto) 57.2 (45-73) % Lymph % (Auto) 31.1 (20-40) % [place] % (Auto) 8.4 (2-11) % Eos % (Auto) 2.1 (0-4) % Baso % (Auto) 0.8 (0-2) % Lymph # (Auto) 3.4 (1.2-4.9) X10*3/uL [place] # (Auto) 0.9 (0.1-1.2) X10*3/uL Eos # (Auto) 0.2 (0.0-0.4) X10*3/uL Baso # (Auto) 0.1 (0.0-0.2) X10*3/uL Abs Immat Gran (auto) 0.04 H (0.00-0.03) X10*3/uL Absolute Neuts (auto) 6.2 (2.0-8.3) x10*3/uL Absolute Nucleated RBC 0.000 (0.0-0.012) X10*3/uL Nucleated RBC % (auto) 0.0 (0.0-0.2) /100WBC Sodium 141 (135-145) mmol/L Potassium 3.6 (3.3-5.1) mmol/L Chloride 107 (96-108) mmol/L Carbon Dioxide 23 (22-29) mmol/L Anion Gap 15 (12-20) BUN 26 H D (9-16) mg/dL Creatinine 0.94 (0.5-1.4) mg/dL Estim Creat Clear Calc 105.6 Estimated GFR > 60 Random Glucose 126 H (60-115) mg/dL Calcium 9.2 D (8.4-10.2) mg/dL Total Bilirubin 0.9 (0.0-1.0) mg/dL AST 22 (5-37) U/L ALT 17 (0-40) U/L Alkaline Phosphatase 68 (39-117) U/L Total Protein 6.7 (6.5-8.0) g/dL Albumin 4.0 (3.5-5.0) g/dL Discharge Plan Discharge Clinical Impression: Gastritis Patient Disposition: Home, Self-Care Instructions: Gastritis (ED) Prescriptions: New pantoprazole [Protonix] 40 mg tablet,delayed release (DR/EC) 40 mg PO DAILY Qty: 20 0RF ondansetron 4 mg tablet,disintegrating 4 mg PO Q8H 4 Days Qty: 12 0RF No Action ondansetron 4 mg tablet,disintegrating 4 mg PO Q8H PRN (Reason: nausea and vomiting) Qty: 10 0RF Referrals: Physician,Unknown J [Primary Care Provider] - 1 week
[2021-11-22 02:28] LABS: Basophils Absolute Auto 0.1 X10*3/uL (0.0-0.2); Basophils Percent Auto 0.8 % (0-2); Eosinophils Absolute Auto 0.2 X10*3/uL (0.0-0.4); Eosinophils Percent Auto 2.1 % (0-4); Hematocrit 42.1 % (42.0-52.0); Hemoglobin 14.5 g/dl (14.0-18.0); Imm Gran Abs Auto 0.04 X10*3/uL (0.00-0.03); Imm Gran Pct Auto 0.4 % (0.0-0.4); Lymphocytes Absolute Auto 3.4 X10*3/uL (1.2-4.9); Lymphocytes Percent Auto 31.1 % (20-40); MANUAL DIFF FLAG NO; Mean Corpuscular HGB Conc 34.4 g/dl (31.0-36.0); Mean Corpuscular Hemoglobin 30.1 pg (27.0-33.0); Mean Corpuscular Volume 87.5 fL (80.0-98.0); Mean Platelet Volume 10.4 fL (9.4-12.4); Monocytes Absolute Auto 0.9 X10*3/uL (0.1-1.2); Monocytes Percent Auto 8.4 % (2-11); Neutrophils Absolute Auto 6.2 x10*3/uL (2.0-8.3); Neutrophils Percent Auto 57.2 % (45-73); Platelet Count 240 X10*3/uL (160-400); Red Blood Count 4.81 X10*6/uL (4.60-5.80); Red Cell Distribution Width 12.2 % (11.0-16.0); White Blood Count 10.8 X10*3/uL (4.8-10.8)
[2021-11-22 02:47] LABS: Alanine Aminotransferase 17 U/L (0-40); Alkaline Phosphatase 68 U/L (39-117); Anion Gap 15 (12-20); Aspartate Amino Transferase 22 U/L (5-37); Bilirubin Total 0.9 mg/dL (0.0-1.0); Blood Urea Nitrogen 26 mg/dL (9-16); Calcium 9.2 mg/dL (8.4-10.2); Carbon Dioxide 23 mmol/L (22-29); Chloride 107 mmol/L (96-108); Creatinine Clr Calc Pharmacy 105.6; Estimated Glomerular Filt Rate > 60; Glucose Random 126 mg/dL (60-115); Potassium 3.6 mmol/L (3.3-5.1); Sodium 141 mmol/L (135-145); Total Protein 6.7 g/dL (6.5-8.0)
[2021-11-22] MEDS: Ondansetron ODT 4 MG TAB.RAPDIS TRANSLINGU (03:10)
[2021-11-22] MEDS: Famotidine 20 MG TABLET PO (03:10)
[2021-11-22 03:30] VITALS: BP 121/74; PULSE 91; RESP 16; TEMP 36.3; O2SAT 97
== END 2021-11-22 03:30 | disposition home or self-care (01) ==
PROVIDERS: Emergency Provider Emergency Medicine
DX: K29.00 Acute gastritis without bleeding (principal); R11.2 Nausea with vomiting, unspecified; Z79.899 Other long term (current) drug therapy
CPT/HCPCS: 36415; 80053; 85025; 99283; 99284

== ENCOUNTER 2021-11-27 17:51 | Emergency (ER) | payer MEDICAID, SELFPAY ==
--- NOTE | 2021-11-27 17:53 | ED.EXTPRO ---
HPI - Extremity Problem General Stated complaint: rolled ankle Source: patient and EMS Mode of arrival: EMS Limitations: no limitations History of Present Illness HPI Narrative: 46-year-old male to female presents via EMS for right ankle pain and swelling. States that she was walking and twisted her ankle. She does not report any other complaints at this time. MD Complaint: extremity pain and extremity swelling Onset (ago): hour(s) (Within the hour of arrival) Pain Consistency: constant Location: right and lower extremity Severity scale (1-10): 2 Quality: aching Radiation: none Relieving factors: nothing Exacerbating factors: range of motion and walking Associated symptoms: denies other symptoms Related Data Previous Rx's Medication Instructions Recorded ondansetron 4 mg disintegrating 4 mg PO Q8H PRN nausea and 11/16/21 tablet vomiting #10 tabs ondansetron 4 mg disintegrating 4 mg PO Q8H 4 days #12 tabs 11/22/21 tablet pantoprazole 40 mg tablet,delayed 40 mg PO DAILY #20 tabs 11/22/21 release (Protonix) Allergies Allergy/AdvReac Type Severity Reaction Status Date / Time nicotine [From NICODERM CQ] Allergy Mild SHORTNESS Verified 11/22/21 01:54 OF BREATH ketchup [KETCHUP] Allergy Unknown RASH Verified 11/22/21 01:54 onion [ONION] Allergy Unknown RASH Verified 11/22/21 01:54 tomato [TOMATO] Allergy Unknown RASH Verified 11/22/21 01:54 Review of Systems Review of Systems: Constitutional: No Fever, No Chills ENT/Mouth: No Ear Pain, No Hoarseness, No sore throat Eyes: No Eye Pain, No Swelling, No Redness, No Foreign Body Cardiovascular: No Chest Pain, No SOB Respiratory: No Cough, No Dyspnea Gastrointestinal: No Nausea, No Vomiting, No Diarrhea, No abdominal Pain Genitourinary: No Dysuria, No Hematuria Musculoskeletal: positive right ankle pain, No Myalgias, No Joint Swelling Skin: No Skin lacerations, No rash Neuro: No Weakness, No Numbness, No Paresthesias, No Loss of Consciousness, No Dizziness, No Headache Psych: No Anxiety/Panic, No Depression Heme/Lymph: no easy bruising, no Lymphadenopathy Endocrine: No Polyuria, No Polydipsia Yes all other systems are reviewed and are negative [facility] Past Medical History Attestation statement: The following information was validated with the patient. Source: old records reviewed Medical History Bipolar 1 disorder Personality disorder Transgender Social History Social History Alcohol intake: current Alcohol intake frequency: 0-2 drinks per day Alcohol type: hard liquor Patient Tobacco Use Status: Never used Tobacco Substance Use Type: Crack/Cocaine Physical Exam Vital Signs: Appearance: Alert. Oriented X3. No acute distress. Eyes: Pupils equal, round and reactive to light. ENT: Pharynx normal. Neck: Normal inspection. Neck supple. CVS: Normal heart rate and rhythm. Pulses normal. Respiratory: No respiratory distress. Breath sounds normal. Abdomen: Soft and nontender. Skin: Skin warm and dry. Normal skin color. Normal skin turgor. Extremities: No lower extremity edema. Brisk capillary refill equal pedal pulses. Neuro: No motor deficit. No sensory deficit. Cranial nerves 2-12 intact. Course Course Course Narrative: 46-year-old male transitioning to female presents via EMS for right ankle pain and swelling. States that she rolled her ankle while walking. While she was on the stretcher being triaged by this [employer], patient requested to be put into the waiting room rather than directly into a bed. I did order x-rays for her, she does have brisk capillary refill and equal pedal pulses to bilateral lower extremities. Neurovascularly intact. Once patient was off the stretcher, she walked out of the department and waved goodbye to everyone. Patient is leaving against medical advice. MDM - Extremity (Nontraumatic) MDM Narrative Medical decision making narrative: Ankle sprain, ankle fracture Medical Records Attestation: I reviewed the patient's medical records. Discharge Plan Discharge Clinical Impression: Ankle pain Patient Disposition: Left Against Medical Advice Prescriptions: No Action ondansetron 4 mg tablet,disintegrating 4 mg PO Q8H PRN (Reason: nausea and vomiting) Qty: 10 0RF pantoprazole [Protonix] 40 mg tablet,delayed release (DR/EC) 40 mg PO DAILY Qty: 20 0RF ondansetron 4 mg tablet,disintegrating 4 mg PO Q8H 4 Days Qty: 12 0RF
[2021-11-27 18:18] VITALS: BP 122/73; PULSE 68; O2SAT 96
== END 2021-11-27 19:20 | disposition left against medical advice (07) ==
PROVIDERS: Emergency Provider Emergency Medicine
DX: M25.571 Pain in right ankle and joints of right foot (principal); Z79.899 Other long term (current) drug therapy

== ENCOUNTER 2021-12-05 21:31 | Emergency (ER) | payer MEDICAID, SELFPAY ==
[2021-12-05 21:40] VITALS: BP 138/80; PULSE 60; O2SAT 98; BMI 25.1
--- NOTE | 2021-12-05 21:57 | PC.NURSE ---
Ashley was placed in [facility] from EMS stretcher as she arrived for evaluationh of ankle pain s/p trip and fall. After she was placved in this room I was informed by Srinivasan FREEDMAN that there was a care plan for Ashley which involved the pt being in a hallway bed. Therefore I went to [facility] to move Ashley and was told that she had ambulated out of the department to meet her mom out front who followed the ambulance to the hospital and would give the patient her keys. I walked out front to find Ashley but she was not to be found. Waiting room staff informed, will notify me if pt returns and assist with moving pt to bed [id number].
--- NOTE | 2021-12-05 22:12 | PC.NURSE ---
Ashley has not returned to the department. Presumed LWBS. ZAFAR aware.
== END 2021-12-05 22:15 | disposition left against medical advice (07) ==
LOC: HO.ED 22:26
PROVIDERS: Emergency Provider Emergency Medicine
DX: S99.911A Unspecified injury of right ankle, initial encounter (principal); X50.1XXA Overexertion from prolonged static or awkward postures, initial encounter; Y93.9 Activity, unspecified; Y92.9 Unspecified place or not applicable; Y99.9 Unspecified external cause status
CPT/HCPCS: 99281

== ENCOUNTER 2021-12-12 06:23 | Emergency (ER) | payer MEDICAID, SELFPAY ==
--- NOTE | ~2021-12-12 | XR_ITS ---
EXAMINATION: XR ANKLE, RIGHT CLINICAL INFORMATION: Right ankle pain. No injury COMPARISON: None TECHNIQUE: AP, lateral, and mortise views of the right ankle. FINDINGS: No fracture or dislocation. No soft tissue swelling. No widening of the ankle mortise. Small plantar calcaneal osteophyte is present. XR/XR ankle RT min 3V IMPRESSION: No acute osseous abnormality of the right ankle.
[2021-12-12 06:58] VITALS: BP 107/69; PULSE 65; RESP 16; O2SAT 97; BMI 25.1
[2021-12-12 07:17] VITALS: BP 132/74; PULSE 65; O2SAT 97
--- NOTE | 2021-12-12 08:20 | ED_ITS ---
HPI - General Adult General Chief complaint: Extremity Injury, Lower Stated complaint: Rt Ankle Pain Time Seen by Provider: 12/12/21 08:20 Source: patient and EMS Mode of arrival: EMS Limitations: no limitations History of Present Illness HPI narrative: Patient is a 46 year old assigned male at , now female, presenting to the emergency department today with right ankle pain. Patient states that she slipped and twisted her right ankle and now it hurts. Patient denies hitting her head in the incident. Patient denies any loss of consciousness from the incident. Patient denies any dizziness, lightheadedness, abdominal pain, nausea, vomiting, fever, chills, blurry vision, double vision, loss of vision, chest pain, difficulty breathing, shortness of breath, back pain, night sweats, pain with urination, increased urinary frequency, increased urinary urgency, blood in her urine or stool, syncope or a near syncopal episode, bowel incontinence, bladder incontinence, bowel retention, bladder retention, or any other complaints at this time. Onset (ago): day(s) (1) Location: right and lower extremity Radiation: non-radiation Severity: mild Severity scale (1-10): 2 Quality: aching Pain Consistency: constant Relieving factors: none Exacerbating factors: none Associated symptoms: denies other symptoms Treatments prior to arrival: none Related Data Previous Rx's Medication Instructions Recorded ondansetron 4 mg disintegrating 4 mg PO Q8H PRN nausea and 11/16/21 tablet vomiting #10 tabs ondansetron 4 mg disintegrating 4 mg PO Q8H 4 days #12 tabs 11/22/21 tablet pantoprazole 40 mg tablet,delayed 40 mg PO DAILY #20 tabs 11/22/21 release (Protonix) naproxen 500 mg tablet 500 mg PO BID 7 days #14 tabs 12/12/21 Allergies Allergy/AdvReac Type Severity Reaction Status Date / Time nicotine [From NICODERM CQ] Allergy Mild SHORTNESS Verified 11/22/21 01:54 OF BREATH ketchup [KETCHUP] Allergy Unknown RASH Verified 11/22/21 01:54 onion [ONION] Allergy Unknown RASH Verified 11/22/21 01:54 tomato [TOMATO] Allergy Unknown RASH Verified 11/22/21 01:54 Review of Systems Constitutional: Constitutional: Reports no additional constitutional complaints, Denies chills, Denies fever(s) and Denies night sweats Eyes: Eyes: Reports no additional eye complaints, Denies blurry vision, Denies change in vision, Denies diplopia, Denies eye discharge, Denies loss of vision and Denies eye pain ENT: Denies dizziness Cardiovascular: Cardiovascular: Reports no additional cardiovascular complaints, Denies chest pain, Denies lightheadedness, Denies Loss of Consciousness and Denies dyspnea Respiratory: Respiratory: Reports no additional respiratory complaints and Denies dyspnea Gastrointestinal: Gastrointestinal: Reports no additional gastrointestinal complaints, Denies abdominal pain, Denies melena, Denies hematochezia, Denies change in bowel habits and Denies change in stool character Genitourinary: Genitourinary: Reports no additional male genitourinary complaints, Denies hematuria, Denies oliguria, Denies difficulty urinating, Denies dysuria, Denies urinary frequency, Denies urinary hesitancy, Denies urinary incontinence and Denies urinary urgency Musculoskeletal: Musculoskeletal: Reports no additional musculoskeletal complaints, Denies numbness and Denies tingling Comments: right ankle pain Neurologic: Denies dizziness, Denies loss of vision, Denies numbness and Denies tingling Psychiatric: Psychiatric: Reports no additional psychiatric complaints Endocrine: Endocrine: Reports no additional endocrine complaints Hematologic/Lymphatic: Hematologic/Lymphatic: Reports no additional hematologic/lymphatic complaints Allergic/Immunologic: Allergic/Immunologic: Reports no additional allergic/immunologic complaints PMFSH Past Medical History Attestation statement: The following information was validated with the patient. Source: old records reviewed Medical History Bipolar 1 disorder Personality disorder Transgender Social History Social History Alcohol intake: current Alcohol intake frequency: 0-2 drinks per day Alcohol type: hard liquor Patient Tobacco Use Status: Never used Tobacco Substance Use Type: Crack/Cocaine Advance Directives: No Advance Directives Information Provided: No Physical Exam ED Vital Signs: Vital Signs - 24 hr 12/12/21 06:58 Pulse Rate 65 Respiratory Rate 16 Blood Pressure 107/69 Pulse Oximetry 97 Oxygen Delivery Method Room Air BMI result Body Mass Index 25.1 Const General: cooperative, no acute distress, alert and awake Nutritional Appearance: well nourished Orientation/consciousness: patient oriented x3 Limitations: no limitations HENMT Head: Yes normal to inspection and Yes atraumatic Ears: hearing grossly normal bilaterally and external ears normal General nose exam: Normal external nose present, no nasal discharge noted and no epistaxis Face and sinus: Yes normal facial exam, No abrasion and No laceration Mouth: Normal oral and palatal mucosa present, no drooling and no muffled voice Eyes General: appearance normal, both eyes and all related structures Periorbital: periorbital findings normal Eyelids: Yes eyelids normal Conjunctivae: conjunctivae normal Pupils: Equal, round and reactive pupils present EOM: EOMs intact bilaterally Neck Neck: Yes normal visual inspection, Yes full ROM and Yes no lymphadenopathy Chest Chest palpation & inspection: normal inspection of the chest Resp Effort & Inspection: normal respiratory effort and able to speak in complete sentences Auscultation: clear to auscultation bilaterally Cardio Rate: regular rate Rhythm: regular rhythm GI Inspection: Yes normal to inspection Neuro General: patient oriented x3 and moves all extremities Cranial nerves: Yes Equal, round and reactive pupils present Cognition (Neuro): normal cognition Motor exam (neuro): 5/5 motor strength present throughout Sensory Exam: Normal double simultaneous stimulation for sensation Coordination: [id number] test normal Extrem General: Yes normal to inspection, Yes full ROM and Yes capillary refill normal Psych Appearance: grossly normal Mental Status: mental status grossly normal Affect: normal affect Attitude: cooperative Thought process: Normal thought process present Thought content: Normal thought content present Insight: Good insight present (Psych) Medical Decision Making MDM Narrative Medical decision making narrative: Patient is a 46 year old assigned male at , now female, presenting to the emergency department today with right ankle pain. Patient's physical exam was unremarkable. Patient's right ankle x-ray showed no acute process. I explained my physical exam findings as well as all test results to the patient. I answered all questions asked by the patient. Patient was offered a walking boot however, she refused it. I stressed the importance of the patient taking her medication as prescribed. I stressed the importance of the patient following up with her primary care provider and an orthopedic provider. I stressed the importance of the patient returning to the emergency department immediately if her symptoms were to worsen or if she were to develop any dizziness, shortness of breath, difficulty breathing, chest pain, blurry vision, loss of vision, nausea, vomiting, abdominal pain, fever, chills, back pain, or any other complaints. Patient verbalized agreement and understanding with this treatment plan and discharge. Differential Diagnosis Differential Diagnosis: right ankle pain Medical Records Medical records reviewed: Yes I reviewed the patient's medical records. Imaging Data Right ankle x-ray: Attestation: I personally reviewed and interpreted this imaging study as follows: My impression: No acute process. Radiologist's impression: EXAMINATION: XR ANKLE, RIGHT CLINICAL INFORMATION: Right ankle pain. No injury? COMPARISON: None? TECHNIQUE: AP, lateral, and mortise views of the right ankle. FINDINGS: No fracture or dislocation. No soft tissue swelling. No widening of the ankle mortise. Small plantar calcaneal osteophyte is present.? XR/XR ankle RT min 3V IMPRESSION: No acute osseous abnormality of the right ankle. Dictated By: Marlo Ward MD Signed By: Electronically signed by Marlo Ward MD 12/12/21 0852 Discharge Plan Discharge Clinical Impression: Ankle sprain and strain Patient Disposition: Home, Self-Care Instructions: Ankle Sprain (ED) Additional Instructions: Follow up with your primary care provider and an orthopedist. Return to the emergency department immediately if your symptoms worsen or if you develop any dizziness, shortness of breath, difficulty breathing, chest pain, blurry vision, loss of vision, nausea, vomiting, abdominal pain, fever, chills, back pain, or any other complaints. Prescriptions: New naproxen 500 mg tablet 500 mg PO BID 7 Days Qty: 14 0RF No Action ondansetron 4 mg tablet,disintegrating 4 mg PO Q8H PRN (Reason: nausea and vomiting) Qty: 10 0RF pantoprazole [Protonix] 40 mg tablet,delayed release (DR/EC) 40 mg PO DAILY Qty: 20 0RF ondansetron 4 mg tablet,disintegrating 4 mg PO Q8H 4 Days Qty: 12 0RF Referrals: [facility] [place] [facility] [Provider Group] (Call to establish and follow up with a primary care provider. If you already have a primary care provider, please follow up with them. ) [facility] [place] [facility] [Provider Group] (Call to establish and follow up with a primary care provider. If you already have a primary care provider, please follow up with them. ) [facility] [place] Primary Care[facility] [Provider Group] (Call to establish and follow up with a primary care provider. If you already have a primary care provider, please follow up with them. ) [facility] [place] [facility]geons [Provider Group] (Call to follow up and establish with an orthopedic provider. ) Stand Alone Forms: Work/School Release Print Language: Slovenian
--- NOTE | 2021-12-12 09:24 | PC.NURSE ---
PT ARRIVED TO ROOM, PROCEEDED TO TAKE OFF HER PANTS TO DRY AND THEN REQUESTED FOOD FROM THE [employer]. EXPLAINED THAT SHE NEEDED TO BE SEEN BY PROVIDER FOR EVAL PT WAS SEEN BY PROVIDER. XRAY COMPLETED. PT SLEEPING IN NAPS. NO DISTRESS WALKING BOOT RECOMMENDED BY PROVIDER. PT REFUSED. WHEN DC INSTRUCTIONS REVIEWED WITH PATIENT, REQUESTED BUS PASS PROVIDED ONE AND THEN DEMANDED A DIFFERENT RIDE HOME I CAME BY AMBULANCE, I WANT AN AMBULANCE HOME SECURITY ESCORTED PATIENT OUT OF WAITING ROOM
== END 2021-12-12 09:29 | disposition home or self-care (01) ==
PROVIDERS: Emergency Provider Emergency Medicine
DX: S93.401A Sprain of unspecified ligament of right ankle, initial encounter (principal); S96.911A Strain of unspecified muscle and tendon at ankle and foot level, right foot, initial encounter; X50.1XXA Overexertion from prolonged static or awkward postures, initial encounter; Y93.89 Activity, other specified; Y92.9 Unspecified place or not applicable; Y99.9 Unspecified external cause status
CPT/HCPCS: 73610; 99282; 99283

== ENCOUNTER 2021-12-20 23:41 | Emergency (ER) | payer MEDICAID, SELFPAY ==
[2021-12-20 23:46] VITALS: BMI 25.1
--- NOTE | 2021-12-20 23:49 | ED_ITS ---
HPI - Psych General Chief Complaint: Psychiatric Symptoms Stated Complaint: si Source: patient and EMS Mode of arrival: EMS Limitations: no limitations History of Present Illness HPI Narrative: 46-year-old male transitioning to female presents for suicidal ideation with plan to jump off a bridge. Patient asked police department for help, police called paramedics to bring patient to the emergency department does not have any medical complaints. MD complaint: suicidal ideation, feels depressed and anxiety Onset (ago): year(s) Duration: constant History of same: Yes Relieving factors: none Exacerbating factors: drug use Associated psychiatric symptoms: depression and suicidal ideation Associated symptoms: denies other symptoms Treatments prior to arrival: none If self harm: admits thoughts of self harm and has plan Related Data Previous Rx's Medication Instructions Recorded ondansetron 4 mg disintegrating 4 mg PO Q8H PRN nausea and 11/16/21 tablet vomiting #10 tabs ondansetron 4 mg disintegrating 4 mg PO Q8H 4 days #12 tabs 11/22/21 tablet pantoprazole 40 mg tablet,delayed 40 mg PO DAILY #20 tabs 11/22/21 release (Protonix) naproxen 500 mg tablet 500 mg PO BID 7 days #14 tabs 12/12/21 Allergies Allergy/AdvReac Type Severity Reaction Status Date / Time nicotine [From NICODERM CQ] Allergy Mild SHORTNESS Verified 11/22/21 01:54 OF BREATH ketchup [KETCHUP] Allergy Unknown RASH Verified 11/22/21 01:54 onion [ONION] Allergy Unknown RASH Verified 11/22/21 01:54 tomato [TOMATO] Allergy Unknown RASH Verified 11/22/21 01:54 Review of Systems Review of Systems: Constitutional: No Fever, No Chills ENT/Mouth: No Ear Pain, No Nasal Congestion, No sore throat Eyes: No Eye Pain, No Swelling, No Redness Cardiovascular: No Chest Pain, No SOB Respiratory: No Cough, No Sputum, No Dyspnea Gastrointestinal: No Nausea, No Vomiting, No Diarrhea, No Hematochezia, No Melena Genitourinary: No Dysuria, No Urinary Frequency, No Hematuria Musculoskeletal: No Myalgias Skin: No Skin Lesions, No rash Neuro: No Weakness, No Numbness, No Paresthesias, No Dizziness, No Headache Psych: positive Anxiety, positive Depression, positive SI Heme/Lymph: No Lymphadenopathy Endocrine: No Polyuria, No Polydipsia Yes all other systems are reviewed and are negative [facility] Past Medical History Attestation statement: The following information was validated with the patient. Source: old records reviewed Medical History Bipolar 1 disorder Personality disorder Transgender Social History Social History Alcohol intake: current Alcohol intake frequency: 0-2 drinks per day Alcohol type: hard liquor Patient Tobacco Use Status: Never used Tobacco Substance Use Type: Crack/Cocaine Advance Directives: No Advance Directives Information Provided: No Physical Exam Vital Signs: Vital Signs: Last Vital Signs Temp 97.5 F 12/20/21 23:52 Pulse 51 12/20/21 23:52 Resp 17 12/20/21 23:52 BP 113/66 12/20/21 23:52 Pulse Ox 97 12/20/21 23:52 O2 Del Method 12/20/21 23:52 BMI result Body Mass Index 25.1 Appearance: Alert. Oriented X3. Unkempt. No acute distress. Eyes: Pupils equal, round and reactive to light. ENT: Pharynx normal. Neck: Normal inspection. Neck supple. CVS: Normal heart rate and rhythm. Pulses normal. Respiratory: No respiratory distress. Breath sounds normal. Abdomen: Soft and nontender. Skin: Skin warm and dry. Normal skin color. Normal skin turgor. Extremities: No lower extremity edema. Gait well-balanced well coordinated. Neuro: No motor deficit. No sensory deficit. Cranial nerves 2-12 intact. Course Course Course Narrative: 46-year-old male transitioning to female presents for suicidal ideation with plan to jump off a bridge. Patient presents for SI on a regular basis. She is currently homeless, states to feel hopeless, and denies any medical complaints at this time. Will order labs, and crisis consult. 01:12 positive for cocaine. Patient medically cleared BHN consult pending. Physician observation at this time. MDM - Psych Differential Diagnosis Differential diagnosis: Likely acute psychosis, suicidal ideation, bipolar disorder, depression, acute anxiety, post-traumatic stress disorder and substance abuse Medical Records Attestation: I reviewed the patient's medical records. Lab Data Attestation: I reviewed the patient's lab results. Labs: Lab Results 12/20/21 12/20/21 12/20/21 Range/Units 23:57 23:58 23:58 Urine Color Yellow Urine Appearance Clear Urine pH 6.0 (5.0-9.0) Ur Specific [place] <= 1.005 (1.005-1.025) Urine Protein Negative (Neg-Trace) mg/dL Urine Glucose (UA) Negative (Negative) mg/dL Urine Ketones Negative (Negative) mg/dL Urine Blood Negative (Negative) Urine Nitrite Negative (Negative) Ur Leukocyte Esterase Negative (Negative) Urine Opiates Screen Not Detected (Not Detect) Urine Fentanyl Screen Not Detected (Not Detect) Ur Barbiturates Screen Not Detected (Not Detect) Ur Phencyclidine Scrn Not Detected (Not Detect) Ur Amphetamines Screen Not Detected (Not Detect) U Benzodiazepines Scrn Not Detected (Not Detect) Urine Cocaine Screen POSITIVE H (Not Detect) U Marijuana (THC) Screen Not Detected (Not Detect) COVID-19 ([facility]) Negative (Negative) COVID-19 Clin Com See Note Discharge Plan Discharge Clinical Impression: Suicidal ideation, Drug-induced psychotic disorder Patient Disposition: Still a Patient Prescriptions: No Action ondansetron 4 mg tablet,disintegrating 4 mg PO Q8H PRN (Reason: nausea and vomiting) Qty: 10 0RF naproxen 500 mg tablet 500 mg PO BID 7 Days Qty: 14 0RF pantoprazole [Protonix] 40 mg tablet,delayed release (DR/EC) 40 mg PO DAILY Qty: 20 0RF ondansetron 4 mg tablet,disintegrating 4 mg PO Q8H 4 Days Qty: 12 0RF
[2021-12-20 23:52] VITALS: BP 113/66; PULSE 51; RESP 17; TEMP 36.4; O2SAT 97
[2021-12-21 00:16] LABS: Appearance Urine Clear; Color Urine Yellow; Glucose Urine UA Negative (Negative); Leukocyte Esterase Urine Negative (Negative); Nitrite Urine Negative (Negative); Specific Gravity - Urine <= 1.005 (1.005-1.025); Urine Blood Negative (Negative); Urine Ketones Negative (Negative); Urine Protein Negative (Neg-Trace)
[2021-12-21 00:22] LABS: Amphetamine Screen Urine Not Detected (Not Detect); Barbiturates, Urine Not Detected (Not Detect); Benzodiazepines Screen Urine Not Detected (Not Detect); Cannabinoid Screen Urine Not Detected (Not Detect); Cocaine Screen Urine POSITIVE (Not Detect); Fentanyl, urine Not Detected (Not Detect); Opiate Screen Urine Not Detected (Not Detect); Phencyclidine Screen Urine Not Detected (Not Detect)
[2021-12-21 00:31] LABS: COVID-19 Test Negative (Negative)
[2021-12-21] MEDS: Ibuprofen 600 MG TABLET PO (02:24)
--- NOTE | 2021-12-21 05:23 | PC.NURSE ---
Patient slept through the night, no distress observed/reported except tooth ache, administered 600 mg of ibuprofen with + effect, YANCIN attempted to speak with patient however non compliant, disposition SUDHA follow up by N in the morning, med rec completed, patient is currently not on any medication, will continue to monitor.
--- NOTE | 2021-12-21 07:14 | PC.NURSE ---
patient appears to remain asleep at present respirations are even and unlabored patient appears in no distress
--- NOTE | 2021-12-21 10:33 | PC.NURSE ---
ckient demands to talk to clinicl cold rolling supervisor, declining dc client went into shower without consent (pod only has one bathroom because of covid positive patient) therefore other clients cant use bathroom. notified care team and security
--- NOTE | 2021-12-21 11:49 | MHC.CARE ---
CARE Team meets with pt to discuss her discharge.? Pt was discharged from this facility by [facility] and initially, it appeared as though pt was agreeable to discharge.? Pt then, decided that she did not want to discharge and refused to leave.? Pt then took a shower after she was told she could not.? Security was on standby to escort the pt out, who was still refusing to change or exit the pod. Pt demanded in patient level of care or respite and stated she will return if she does not get either.? She stated that she had called [facility] and was supposed to call back at noon today.? CARE Team offered to allow pt to stay until 12:30, so she could make the call to [facility] and either schedule a ride there if there was a bed or schedule a ride back to her home.? Pt declined and stated she wished to go, now. A Lyft was arranged to pt?s address.
== END 2021-12-21 11:01 | disposition home or self-care (01) ==
PROVIDERS: Nurse Practitioner Family; Emergency Provider Emergency Medicine
DX: F33.1 Major depressive disorder, recurrent, moderate (principal); R45.851 Suicidal ideations; F14.959 Cocaine use, unspecified with cocaine-induced psychotic disorder, unspecified; Z79.899 Other long term (current) drug therapy; Z20.822 Contact with and (suspected) exposure to COVID-19
CPT/HCPCS: 80307; 81003; 87635; 99284

== ENCOUNTER 2022-01-11 05:47 | Emergency (ER) | payer MEDICAID, SELFPAY ==
[2022-01-11 05:50] VITALS: BP 115/73; PULSE 71; RESP 18; TEMP 36.6; O2SAT 98; BMI 25.1
[2022-01-11 06:12] LABS: COVID-19 Test Negative (Negative)
--- NOTE | 2022-01-11 06:29 | PC.NURSE ---
Patient watching TV. relaxed and comfortable, no distress noted. Will continue to monitor.
[2022-01-11 06:35] LABS: MANUAL DIFF FLAG NO
--- NOTE | 2022-01-11 06:38 | ED_ITS ---
HPI - Psych General Chief Complaint: Psychiatric Symptoms Stated Complaint: Crisis Time Seen by Provider: 01/11/22 06:37 Source: patient Mode of arrival: ambulatory Limitations: no limitations History of Present Illness MD complaint: suicidal ideation and feels depressed Onset (ago): day(s) (3) Duration: getting worse History of same: Yes Relieving factors: none Exacerbating factors: none Context: significant life stressor Associated psychiatric symptoms: depression and suicidal ideation Associated symptoms: denies other symptoms Treatments prior to arrival: none If self harm: admits thoughts of self harm and has plan Related Data Home Medications Medication Instructions Recorded Confirmed lithium carbonate 600 mg capsule 1 cap PO BID 01/11/22 01/11/22 prazosin 1 mg capsule 1 cap PO BEDTIME 01/11/22 01/11/22 quetiapine 50 mg tablet 1 tab PO BEDTIME 01/11/22 01/11/22 Allergies Allergy/AdvReac Type Severity Reaction Status Date / Time nicotine [From NICODERM CQ] Allergy Mild SHORTNESS Verified 11/22/21 01:54 OF BREATH ketchup [KETCHUP] Allergy Unknown RASH Verified 11/22/21 01:54 onion [ONION] Allergy Unknown RASH Verified 11/22/21 01:54 tomato [TOMATO] Allergy Unknown RASH Verified 11/22/21 01:54 Review of Systems Review of Systems: Constitutional : No Fever, No Chills ENT/Mouth : No Ear Pain, No Nasal Congestion, No sore throat Eyes: No Eye Pain, No Swelling, No Redness Cardiovascular : No Chest Pain, No SOB Respiratory : No Cough, No Sputum, No Dyspnea Gastrointestinal : No Nausea, No Vomiting, No Diarrhea, No Hematochezia, No Melena Genitourinary : No Dysuria, No Urinary Frequency, No Hematuria Musculoskeletal : No Myalgias Skin : No Skin Lesions, No rash Neuro : No Weakness, No Numbness, No Paresthesias, No Dizziness, No Headache Psych : positive Anxiety, positive Depression, positive SI no HI Heme/Lymph: No Lymphadenopathy Endocrine : No Polyuria, No Polydipsia All other systems reviewed and are negative [facility] Past Medical History Attestation statement: The following information was validated with the patient. Medical History Bipolar 1 disorder Personality disorder Transgender Social History Social History Alcohol intake: current Alcohol intake frequency: 0-2 drinks per day Alcohol type: hard liquor Patient Tobacco Use Status: Never used Tobacco Substance Use Type: Crack/Cocaine Advance Directives: No Advance Directives Information Provided: No Physical Exam Vital Signs: Vital Signs: Last Vital Signs Temp 97.9 F 01/11/22 05:50 Pulse 71 01/11/22 05:50 Resp 18 01/11/22 05:50 BP 115/73 01/11/22 05:50 Pulse Ox 98 01/11/22 05:50 O2 Del Method 01/11/22 05:50 BMI result Body Mass Index 25.1 Appearance: Alert. Oriented X3. No acute distress. Eyes: Pupils equal, round and reactive to light. ENT: Pharynx normal. Neck: Normal inspection. Neck supple. CVS: Normal heart rate and rhythm. Pulses normal. Respiratory: No respiratory distress. Breath sounds normal. Abdomen: Soft and non-tender. Skin: Skin warm and dry. Normal skin color. Normal skin turgor. Extremities: No lower extremity edema. No calf ttp Neuro: Oriented X 3. No motor deficit. No sensory deficit. CN 2-12 intact Course Course Course Narrative: Physician observation started at 658am Patient placed in physician observation because the patient needed more time for BHN to assess the need for psych admission. At the time observation was started the patient's vitals were stable, patient is alert and oriented, Neuro: nonfocal, CV RRR, Lungs clear MDM - Psych MDM Narrative Medical decision making narrative: 46 yo patient hx of bipolar disorder, substance abuse here with c/o depression and SI - labs and BHN consult Lab Data Result diagrams: 01/11/22 06:28 01/11/22 06:28 Labs: Lab Results 01/11/22 01/11/22 01/11/22 Range/Units 05:54 06:28 06:28 Urine Color Urine Appearance Urine pH (5.0-9.0) Ur Specific [place] (1.005-1.025) Urine Protein (Neg-Trace) mg/dL Urine Glucose (UA) (Negative) mg/dL Urine Ketones (Negative) mg/dL Urine Blood (Negative) Urine Nitrite (Negative) Ur Leukocyte Esterase (Negative) [place] < 0.04 L (0.60-1.20) mmol/L Ethyl Alcohol < 10 mg/dL COVID-19 ([facility]) Negative (Negative) COVID-19 Clin Com See Note 01/11/22 Range/Units 06:33 Urine Color Dark Yellow Urine Appearance Clear Urine pH 5.0 (5.0-9.0) Ur Specific [place] >= 1.030 H (1.005-1.025) Urine Protein Trace (Neg-Trace) mg/dL Urine Glucose (UA) Negative (Negative) mg/dL Urine Ketones Negative (Negative) mg/dL Urine Blood Negative (Negative) Urine Nitrite Negative (Negative) Ur Leukocyte Esterase Negative (Negative) [place] (0.60-1.20) mmol/L Ethyl Alcohol mg/dL COVID-19 ([facility]) (Negative) COVID-19 Clin Com Discharge Plan Discharge Clinical Impression: Suicidal ideation Patient Disposition: Still a Patient Prescriptions: No Action prazosin 1 mg capsule 1 cap PO BEDTIME lithium carbonate 600 mg capsule 1 cap PO BID quetiapine 50 mg tablet 1 tab PO BEDTIME
[2022-01-11 06:40] LABS: Appearance Urine Clear; Color Urine Dark Yellow; Glucose Urine UA Negative (Negative); Leukocyte Esterase Urine Negative (Negative); Nitrite Urine Negative (Negative); Specific Gravity - Urine >= 1.030 (1.005-1.025); Urine Blood Negative (Negative); Urine Ketones Negative (Negative); Urine Protein Trace mg/dL (Neg-Trace)
[2022-01-11 06:50] LABS: Lithium < 0.04 mmol/L (0.60-1.20)
[2022-01-11 06:53] LABS: Basophils Absolute Auto 0.1 X10*3/uL (0.0-0.2); Basophils Percent Auto 0.9 % (0-2); Eosinophils Absolute Auto 0.3 X10*3/uL (0.0-0.4); Eosinophils Percent Auto 2.5 % (0-4); Hematocrit 45.1 % (42.0-52.0); Hemoglobin 15.5 g/dl (14.0-18.0); Imm Gran Abs Auto 0.05 X10*3/uL (0.00-0.03); Imm Gran Pct Auto 0.4 % (0.0-0.4); Lymphocytes Percent Auto 26.5 % (20-40); Mean Corpuscular HGB Conc 34.4 g/dl (31.0-36.0); Mean Corpuscular Hemoglobin 30.3 pg (27.0-33.0); Mean Corpuscular Volume 88.1 fL (80.0-98.0); Mean Platelet Volume 10.1 fL (9.4-12.4); Monocytes Absolute Auto 1.2 X10*3/uL (0.1-1.2); Monocytes Percent Auto 10.5 % (2-11); Neutrophils Absolute Auto 6.7 x10*3/uL (2.0-8.3); Neutrophils Percent Auto 59.2 % (45-73); Platelet Count 319 X10*3/uL (160-400); Red Blood Count 5.12 X10*6/uL (4.60-5.80); Red Cell Distribution Width 12.4 % (11.0-16.0); White Blood Count 11.3 X10*3/uL (4.8-10.8)
[2022-01-11 06:54] LABS: Ethanol < 10 mg/dL
[2022-01-11 06:57] LABS: Alanine Aminotransferase 31 U/L (0-40); Albumin Level 4.4 g/dL (3.5-5.0); Alkaline Phosphatase 76 U/L (39-117); Anion Gap 15 (12-20); Aspartate Amino Transferase 31 U/L (5-37); Bilirubin Total 1.3 mg/dL (0.0-1.0); Blood Urea Nitrogen 32 mg/dL (9-16); Calcium 9.5 mg/dL (8.4-10.2); Carbon Dioxide 25 mmol/L (22-29); Chloride 104 mmol/L (96-108); Creatinine Clr Calc Pharmacy 94.6; Estimated Glomerular Filt Rate > 60; Glucose Random 108 mg/dL (60-115); Potassium 3.6 mmol/L (3.3-5.1); Sodium 140 mmol/L (135-145); Total Protein 7.4 g/dL (6.5-8.0)
[2022-01-11 06:58] LABS: Amphetamine Screen Urine Not Detected (Not Detect); Barbiturates, Urine Not Detected (Not Detect); Benzodiazepines Screen Urine Not Detected (Not Detect); Cannabinoid Screen Urine Not Detected (Not Detect); Cocaine Screen Urine POSITIVE (Not Detect); Fentanyl, urine POSITIVE (Not Detect); Opiate Screen Urine Not Detected (Not Detect); Phencyclidine Screen Urine Not Detected (Not Detect)
--- NOTE | 2022-01-11 08:19 | PC.NURSE ---
Pharmacy called about med rec
--- NOTE | 2022-01-11 09:39 | PHA.MEDREC ---
Pharmacy Consult ? Medication Reconciliation Pharmacy has reviewed the medication reconciliation done by Roberto
[2022-01-11 12:59] VITALS: BP 118/67; PULSE 67; RESP 16; TEMP 36.9; O2SAT 96
[2022-01-11 15:30] VITALS: BP 112/52; PULSE 55; RESP 18; O2SAT 97
--- NOTE | 2022-01-11 15:36 | PC.NURSE ---
Patient states they are actively going through withdrawals. Reports that she is vomiting and says she has seizures when she goes through withdrawals. Vital signs taken. Dr. Medrano made aware. Ativan ordered.
[2022-01-11] MEDS: LORazepam 1 MG TABLET PO (15:43)
[2022-01-11] MEDS: Acetaminophen 325 MG TABLET 975 MG PO (20:22)
[2022-01-11] MEDS: LORazepam 1 MG TABLET 2 MG PO (20:23)
--- NOTE | 2022-01-11 22:45 | PC.NURSE ---
Patient was medicated with Tylenol and ativan after he was C/O toothache and anxiety, at this time he is sleeping comfortably, no distress noted. Will continue to monitor.
[2022-01-12 01:02] VITALS: BP 121/71; PULSE 53; RESP 17; TEMP 36.3; O2SAT 97
--- NOTE | 2022-01-12 07:01 | PC.NURSE ---
Patient sleeping well, no distress noted. Will continue to monitor.
[2022-01-12] MEDS: Acetaminophen 325 MG TABLET 650 MG PO (08:12)
[2022-01-12] MEDS: Lithium Carbonate 300 MG CAPSULE 600 MG PO (08:15)
--- NOTE | 2022-01-12 10:01 | PC.NURSE ---
pt is up for dc. pt is giving push back stating that fabienne johnson told pt that they should wait here until 12 for the detox bed to open so that i dont feel the distraction or pressure to go use . this rn sts the pt may wait in waiting room if it makes them feel more comfortable, but that pt is discharged and the bed is needed for further patient flow. care team consulted and has arranged transport for pt.
== END 2022-01-12 10:28 | disposition home or self-care (01) ==
PROVIDERS: Emergency Provider Emergency Medicine
DX: F33.1 Major depressive disorder, recurrent, moderate (principal); R45.851 Suicidal ideations; Z79.899 Other long term (current) drug therapy; Z20.822 Contact with and (suspected) exposure to COVID-19
CPT/HCPCS: 36415; 80053; 80178; 80307; 81003; 82077; 85025; 87635; 99284

== ENCOUNTER 2022-01-20 23:20 | Emergency (ER) | payer MEDICAID, SELFPAY ==
[2022-01-20 23:54] VITALS: BP 97/55; PULSE 60; RESP 16; TEMP 36.4; O2SAT 99; BMI 25.2
--- NOTE | 2022-01-21 00:40 | ED_ITS ---
HPI - Psych General Chief Complaint: Psychiatric Symptoms Stated Complaint: SI Time Seen by Provider: 01/21/22 00:39 Source: patient Mode of arrival: ambulatory Limitations: no limitations History of Present Illness HPI Narrative: This is a 46-year-old transgender female past medical history of bipolar disorder, anxiety, depression presenting to the emergency department with complaints of suicidal ideation x1 day.? Patient reports that she would like to slit her wrist to commit suicide. She tells me she is not homicidal. She reports that she has been having toothache for a long time. Reports no recreational cocaine use. Denies alcohol and tobacco.?She denies visual, auditory and tactile hallucinations.? She denies any medical complaints at this time. Reports no other med complaints. Denies any toxic ingestion. Related Data Home Medications Medication Instructions Recorded Confirmed lithium carbonate 600 mg capsule 1 cap PO BID 01/11/22 01/11/22 prazosin 1 mg capsule 1 cap PO BEDTIME 01/11/22 01/11/22 quetiapine 50 mg tablet 1 tab PO BEDTIME 01/11/22 01/11/22 Allergies Allergy/AdvReac Type Severity Reaction Status Date / Time nicotine [From NICODERM CQ] Allergy Mild SHORTNESS Verified 11/22/21 01:54 OF BREATH ketchup [KETCHUP] Allergy Unknown RASH Verified 11/22/21 01:54 onion [ONION] Allergy Unknown RASH Verified 11/22/21 01:54 tomato [TOMATO] Allergy Unknown RASH Verified 11/22/21 01:54 Review of Systems Review of Systems: Constitutional : No Fever, No Chills ENT/Mouth : No Ear Pain, No Nasal Congestion, No sore throat, + tootache Eyes: No Eye Pain, No Swelling, No Redness Cardiovascular : No Chest Pain, No SOB Respiratory : No Cough, No Sputum, No Dyspnea Gastrointestinal : No Nausea, No Vomiting, No Diarrhea, No Hematochezia, No Melena Genitourinary : No Dysuria, No Urinary Frequency, No Hematuria Musculoskeletal : No Myalgias Skin : No Skin Lesions, No rash Neuro : No Weakness, No Numbness, No Paresthesias, No Dizziness, No Headache Psych : positive Anxiety, No Depression, positive SI/HI Yes all other systems are reviewed and are negative [facility] Past Medical History Attestation statement: The following information was validated with the patient. Source: old records reviewed and nursing notes reviewed Medical History Bipolar 1 disorder Personality disorder Transgender Social History Social History Alcohol intake: current Alcohol intake frequency: 0-2 drinks per day Alcohol type: hard liquor Patient Tobacco Use Status: Never used Tobacco Substance Use Type: Crack/Cocaine Advance Directives: No Advance Directives Information Provided: No Physical Exam Vital Signs: Vital Signs: Last Vital Signs Temp 97.6 F 01/20/22 23:54 Pulse 60 01/20/22 23:54 Resp 16 01/20/22 23:54 BP 97/55 L 01/20/22 23:54 Pulse Ox 99 01/20/22 23:54 O2 Del Method 01/20/22 23:54 BMI result Body Mass Index 25.2 vss Appearance: Alert.? Oriented X3.? No acute distress.? Head: Normocephalic, atraumatic, no step-offs or deformities Eyes: Pupils equal, round and reactive to light.? ENT: Pharynx normal.??Poor dentition. Uvula midline, speaking in full sentences, controlling secretions well. No signs of abscess. Neck: Normal inspection.? Neck supple.? CVS: Normal heart rate and rhythm.? Pulses normal.? Respiratory: No respiratory distress.? Breath sounds normal.? Abdomen: Soft and nontender.? Skin: Skin warm and dry.? Normal skin color.? Normal skin turgor.? Extremities: No lower extremity edema.? No calf ttp. 5/5 strength to bilateral upper and lower extremities Neuro: Oriented X 3.? No motor deficit.? No sensory deficit. CN 2-12 intact Course Reevaluation(s) Reevaluation #1: CBC appears to be around patient's baseline. Chemistry with no acute findings requiring intervention. Ethanol negative. Pending JARQUIN, UA however this much change course of action. At this time patient will be placed into physician observation to allow more time to be evaluated by the behavioral health team. At time observation was started patient common cooperative no acute distress. Time: 01:07 MDM - Psych MDM Narrative Medical decision making narrative: 004 46-year-old transgender female presents with suicidal ideation Physical exam benign Will rule out organic cause although unlikely likely bipolar disorder. No signs of peritonsillar abscess, gingival abscess, dental abscess or periapical abscess. Advised patient to follow-up with dentist. Will give Tylenol for tooth pain Plan at this time is medical clearance and evaluation by the behavioral health team. Will place patient on a one-to-one. Medical Records Attestation: I reviewed the patient's medical records. Lab Data Attestation: I reviewed the patient's lab results. Result diagrams: 01/21/22 00:52 01/21/22 00:52 Labs: Lab Results 01/21/22 01/21/22 01/21/22 Range/Units 00:52 00:52 00:52 WBC 9.5 (4.8-10.8) X10*3/uL RBC 4.37 L (4.60-5.80) X10*6/uL Hgb 13.4 L (14.0-18.0) g/dl Hct 38.7 L (42.0-52.0) % MCV 88.6 (80.0-98.0) fL MCH 30.7 (27.0-33.0) pg MCHC 34.6 (31.0-36.0) g/dl RDW 12.4 (11.0-16.0) % Plt Count 240 (160-400) X10*3/uL MPV 10.2 (9.4-12.4) fL Immature Gran % (Auto) 0.2 (0.0-0.4) % Neut % (Auto) 52.6 (45-73) % Lymph % (Auto) 33.0 (20-40) % [place] % (Auto) 9.9 (2-11) % Eos % (Auto) 3.7 (0-4) % Baso % (Auto) 0.6 (0-2) % Lymph # (Auto) 3.2 (1.2-4.9) X10*3/uL [place] # (Auto) 0.9 (0.1-1.2) X10*3/uL Eos # (Auto) 0.4 (0.0-0.4) X10*3/uL Baso # (Auto) 0.1 (0.0-0.2) X10*3/uL Abs Immat Gran (auto) 0.02 (0.00-0.03) X10*3/uL Absolute Neuts (auto) 5.0 (2.0-8.3) x10*3/uL Absolute Nucleated RBC 0.000 (0.0-0.012) X10*3/uL Nucleated RBC % (auto) 0.0 (0.0-0.2) /100WBC Sodium 140 (135-145) mmol/L Potassium 3.9 (3.3-5.1) mmol/L Chloride 106 (96-108) mmol/L Carbon Dioxide 25 (22-29) mmol/L Anion Gap 13 (12-20) BUN 19 H (9-16) mg/dL Creatinine 1.13 (0.5-1.4) mg/dL Estim Creat Clear Calc 87.9 Estimated GFR > 60 Random Glucose 102 (60-115) mg/dL Calcium 9.0 (8.4-10.2) mg/dL Magnesium 1.9 (1.6-2.6) mg/dL Total Bilirubin 0.5 (0.0-1.0) mg/dL AST 19 (5-37) U/L ALT 14 (0-40) U/L Alkaline Phosphatase 73 (39-117) U/L Total Protein 6.2 L (6.5-8.0) g/dL Albumin 3.7 (3.5-5.0) g/dL Ethyl Alcohol < 10 mg/dL COVID-19 ([facility]) Negative (Negative) COVID-19 Clin Com See Note Critical Care Time Critical Care Time Critical Care Time: No Discharge Plan Discharge Clinical Impression: Suicidal ideation, Depression, Tooth ache Patient Disposition: Still a Patient Additional Instructions: Please follow-up with a dentist. Prescriptions: No Action prazosin 1 mg capsule 1 cap PO BEDTIME lithium carbonate 600 mg capsule 1 cap PO BID quetiapine 50 mg tablet 1 tab PO BEDTIME
[2022-01-21 00:56] LABS: MANUAL DIFF FLAG NO
[2022-01-21 00:57] LABS: Basophils Absolute Auto 0.1 X10*3/uL (0.0-0.2); Basophils Percent Auto 0.6 % (0-2); Eosinophils Absolute Auto 0.4 X10*3/uL (0.0-0.4); Eosinophils Percent Auto 3.7 % (0-4); Hematocrit 38.7 % (42.0-52.0); Hemoglobin 13.4 g/dl (14.0-18.0); Imm Gran Abs Auto 0.02 X10*3/uL (0.00-0.03); Imm Gran Pct Auto 0.2 % (0.0-0.4); Lymphocytes Absolute Auto 3.2 X10*3/uL (1.2-4.9); Mean Corpuscular HGB Conc 34.6 g/dl (31.0-36.0); Mean Corpuscular Hemoglobin 30.7 pg (27.0-33.0); Mean Corpuscular Volume 88.6 fL (80.0-98.0); Mean Platelet Volume 10.2 fL (9.4-12.4); Monocytes Absolute Auto 0.9 X10*3/uL (0.1-1.2); Monocytes Percent Auto 9.9 % (2-11); Neutrophils Percent Auto 52.6 % (45-73); Platelet Count 240 X10*3/uL (160-400); Red Blood Count 4.37 X10*6/uL (4.60-5.80); Red Cell Distribution Width 12.4 % (11.0-16.0); White Blood Count 9.5 X10*3/uL (4.8-10.8)
[2022-01-21 01:18] LABS: COVID-19 Test Negative (Negative)
[2022-01-21 01:19] LABS: Alanine Aminotransferase 14 U/L (0-40); Albumin Level 3.7 g/dL (3.5-5.0); Alkaline Phosphatase 73 U/L (39-117); Anion Gap 13 (12-20); Aspartate Amino Transferase 19 U/L (5-37); Bilirubin Total 0.5 mg/dL (0.0-1.0); Blood Urea Nitrogen 19 mg/dL (9-16); Carbon Dioxide 25 mmol/L (22-29); Chloride 106 mmol/L (96-108); Creatinine Clr Calc Pharmacy 87.9; Estimated Glomerular Filt Rate > 60; Ethanol < 10 mg/dL; Glucose Random 102 mg/dL (60-115); Magnesium 1.9 mg/dL (1.6-2.6); Potassium 3.9 mmol/L (3.3-5.1); Sodium 140 mmol/L (135-145); Total Protein 6.2 g/dL (6.5-8.0)
[2022-01-21 02:38] VITALS: BP 126/56; PULSE 57; RESP 16; TEMP 36.6; O2SAT 99
--- NOTE | 2022-01-21 05:38 | PC.NURSE ---
HAYDEE consult form sent to [facility]
--- NOTE | 2022-01-21 06:02 | PC.NURSE ---
Patient just got transferred from main ED, ambulation independent, behavior calm and non concerning at this time, BHN referral completed per report, uurine sample pending for UTOX, med rec completed/pending provider's approval, VSS, will continue to monitor
[2022-01-21 06:09] LABS: Lithium < 0.04 mmol/L (0.60-1.20)
[2022-01-21 09:48] LABS: Appearance Urine Clear; Color Urine Yellow; Glucose Urine UA Negative (Negative); Leukocyte Esterase Urine Negative (Negative); Nitrite Urine Negative (Negative); Urine Blood Negative (Negative); Urine Ketones Negative (Negative); Urine Protein Negative (Neg-Trace)
[2022-01-21 10:09] LABS: Amphetamine Screen Urine Not Detected (Not Detect); Barbiturates, Urine Not Detected (Not Detect); Benzodiazepines Screen Urine Not Detected (Not Detect); Cannabinoid Screen Urine Not Detected (Not Detect); Cocaine Screen Urine POSITIVE (Not Detect); Fentanyl, urine Not Detected (Not Detect); Opiate Screen Urine Not Detected (Not Detect); Phencyclidine Screen Urine Not Detected (Not Detect)
--- NOTE | 2022-01-21 12:29 | MHC.CARE ---
Care team SW met with Pt who arrived to ED via ambulance for SI. Pt was sleeping and needed to be woken up in order to proceed with consult. Pt reports that she was sectioned to the hospital for IPLOC however there is no documentation to validate this statement. PT continued to state her father was in the process of obtaining an inpatient section through court. When care team proceeded to ask for more information relative to the court ordered section, PT refused to answer, offering the devil was helping. Pt reports previous SI attempts and hospitalization but could not provide a time frame. Pt admitted to using cocaine last night and that she uses substances. Pt's labs were displayed a positive result for cocaine. Pt is currently not engaged in any outreach services. PT states that she wants IPLOC as she continues to have SI of cutting her wrists but would not further engage. Upon reviewing PT's Care Plan from October 2021, historically this is PT's baseline and upon further conversation/ follow- up, PT recants any SI. A referral with Recovery has been made to further explore substance abuse options and community supports. There will be continued attempts to engage PT for disposition.
--- NOTE | 2022-01-21 14:53 | MHC.RECOVSUP ---
Recovery Support note: Patient is a 46 year old Moroccan speaking MTF transgender individual who presented to [facility] ED due to SI. Patient was referred to this proposal lead writer by CARE Team to discuss cocaine use. Patient reports spending about $500 a week on cocaine, stating they spend more when they make more money. Patient reports cocaine use since they were a teenager. Patient reports a desire to stop using cocaine and that she is interested in going inpatient. Patient is requesting dual diagnosis treatment at [facility]. This proposal lead writer attempted to discuss outpatient supports and patient became irritated, stating none of that will help me if I don't go inpatient first. Encouraged patient to utilize this time to think about what there recovery will look like. Recovery Support Team available as needed.
[2022-01-21] MEDS: Acetaminophen 325 MG TABLET 975 MG PO ×2 (16:40→20:14)
[2022-01-21 18:44] VITALS: BP 110/59; PULSE 51; RESP 18; TEMP 37; O2SAT 98
[2022-01-21] MEDS: Lithium Carbonate 300 MG CAPSULE 600 MG PO (20:14)
[2022-01-21] MEDS: QUEtiapine Fumarate 50 MG TABLET PO (20:14)
[2022-01-21] MEDS: Prazosin HCL 1 MG CAPSULE PO (20:14)
[2022-01-21 20:28] VITALS: BP 131/73; PULSE 61; RESP 18; O2SAT 96
--- NOTE | 2022-01-21 22:13 | MHC.RECOVSUP ---
? Reason for consult:ELICEO o? Current location: 04? o? Identified substance use concern:? -? Seeking ATS (detox) -? Support ? Intervention: o? ATS bed search started/completed/in process o? Harm reduction discussion ? Plan: o? Follow up tomorrow? o? Patient awaiting crisis evaluation ? Additional information:Care Team is working with this pt.
[2022-01-21] MEDS: Lidocaine HCl Viscous 2 % 15 ML SOLUTION MUCOUS MEM (22:43)
[2022-01-21 23:17] VITALS: RESP 18
--- NOTE | 2022-01-21 23:20 | PC.NURSE ---
Patient compliant of dental pain which she reports during her every ED visit but has never been addressed to her dentist despite repeated advice and recommendation, Tylenol 975 administered at 2153, Lidocaine viscous 2% 15 ml administered @ 2243, Orajel administered at 2300, patient continues reporting dental pain, patient compliant with her night time medication, refused to have her vital assessed, disposition per care team is recovery team referral for detox bed search, behavior non concerning at this time but exhibits impulsive behavior, will continue to monitor.
[2022-01-21 23:56] VITALS: BP 129/73; PULSE 58; RESP 17; TEMP 36.8; O2SAT 98
[2022-01-22] MEDS: Ibuprofen 800 MG TABLET PO ×2 (02:25→20:09)
--- NOTE | 2022-01-22 06:48 | PC.NURSE ---
Patient is currently in bed appears sleeping, struggle to fall sleep due to dental pain, behavior non concerning however impulsive at time, disposition per care team detox bed search, recovery team coordinating bed search, VSS, medication compliant, will continue to monitor.
--- NOTE | 2022-01-22 07:06 | PC.NURSE ---
patient appears to remain asleep at present respirations are even and unlabored patient appears in no distress
[2022-01-22] MEDS: Acetaminophen 325 MG TABLET 650 MG PO (10:09)
[2022-01-22] MEDS: Lithium Carbonate 300 MG CAPSULE 600 MG PO ×2 (10:09→20:03)
[2022-01-22] MEDS: Amoxicillin/Potassium Clav 875 MG TABLET PO ×2 (10:41→20:03)
--- NOTE | 2022-01-22 20:01 | MHC.CARE ---
Pt requesting discharge home. Pt has been seen by CARE team clinician, recovery technical support analyst, and a volleyball coach during her ED visit. Pt has declined referrals and resources and indicated that she will follow up with her care on an outpatient basis. Precious will be ordered to transport pt home.
[2022-01-22] MEDS: Prazosin HCL 1 MG CAPSULE PO (20:03)
[2022-01-22] MEDS: QUEtiapine Fumarate 50 MG TABLET PO (20:03)
[2022-01-22 20:05] VITALS: BP 129/83; PULSE 65; RESP 20; TEMP 36.4; O2SAT 98
== END 2022-01-22 20:18 | disposition home or self-care (01) ==
PROVIDERS: Physician Assistant; Emergency Provider Emergency Medicine
DX: R45.851 Suicidal ideations (principal); F31.9 Bipolar disorder, unspecified; K08.89 Other specified disorders of teeth and supporting structures; Z20.822 Contact with and (suspected) exposure to COVID-19; F41.9 Anxiety disorder, unspecified; F60.9 Personality disorder, unspecified; F64.0 Transsexualism; Z79.899 Other long term (current) drug therapy
CPT/HCPCS: 36415; 80053; 80178; 80307; 81003; 82077; 83735; 85025; 87635; 99285

== ENCOUNTER 2022-02-04 15:23 | Emergency (ER) | payer MEDICAID, SELFPAY ==
[2022-02-04 15:33] VITALS: BP 124/82; PULSE 75; RESP 16; TEMP 37.1; O2SAT 96; BMI 23.0
--- NOTE | 2022-02-04 15:35 | ED_ITS ---
HPI - Psych General Chief Complaint: Psychiatric Symptoms Stated Complaint: Crisis Time Seen by Provider: 02/04/22 15:28 Source: patient Mode of arrival: ambulatory Limitations: no limitations History of Present Illness HPI Narrative: 46-year-old male transition to female presents for psychiatric evaluation. States that she is depressed and wants detox or respite. She denies suicidal ideation at this time, and states that sheis ?tired of using MD complaint: feels depressed and substance abuse Onset (ago): year(s) Duration: constant History of same: Yes Relieving factors: none Exacerbating factors: drug use Context: recent drug abuse Associated psychiatric symptoms: depression Associated symptoms: denies other symptoms Treatments prior to arrival: none Related Data Home Medications Medication Instructions Recorded Confirmed lithium carbonate 600 mg capsule 1 cap PO BID 01/11/22 01/21/22 prazosin 1 mg capsule 1 cap PO BEDTIME 01/11/22 01/21/22 quetiapine 50 mg tablet 1 tab PO BEDTIME 01/11/22 01/21/22 Previous Rx's Medication Instructions Recorded amoxicillin 875 mg-potassium 1 tab PO BID 7 days #14 tabs 01/22/22 clavulanate 125 mg tablet Allergies Allergy/AdvReac Type Severity Reaction Status Date / Time nicotine [From NICODERM CQ] Allergy Mild SHORTNESS Verified 11/22/21 01:54 OF BREATH ketchup [KETCHUP] Allergy Unknown RASH Verified 11/22/21 01:54 onion [ONION] Allergy Unknown RASH Verified 11/22/21 01:54 tomato [TOMATO] Allergy Unknown RASH Verified 11/22/21 01:54 Review of Systems Review of Systems: Constitutional: No Fever, No Chills ENT/Mouth: No Ear Pain, No Nasal Congestion, No sore throat Eyes: No Eye Pain, No Swelling, No Redness Cardiovascular: No Chest Pain, No SOB Respiratory: No Cough, No Sputum, No Dyspnea Gastrointestinal: No Nausea, No Vomiting, No Diarrhea, No Hematochezia, No Melena Genitourinary: No Dysuria, No Urinary Frequency, No Hematuria Musculoskeletal: No Myalgias Skin: No Skin Lesions, No rash Neuro: No Weakness, No Numbness, No Paresthesias, No Dizziness, No Headache Psych: positive Anxiety, positive Depression, positive substance abuse, no suicidal or homicidal ideation Heme/Lymph: No Lymphadenopathy Endocrine: No Polyuria, No Polydipsia Yes all other systems are reviewed and are negative [facility] Past Medical History Attestation statement: The following information was validated with the patient. Source: old records reviewed Medical History Bipolar 1 disorder Personality disorder Transgender Social History Social History Alcohol intake: current Alcohol intake frequency: 0-2 drinks per day Alcohol type: hard liquor Patient Tobacco Use Status: Never used Tobacco Substance Use Type: Crack/Cocaine Advance Directives: No Advance Directives Information Provided: Yes Physical Exam Vital Signs: Vital Signs: Last Vital Signs Temp 97.8 F 02/04/22 20: Pulse 56 02/04/22 20:22 Resp 16 02/04/22 20:22 BP 111/63 02/04/22 20: Pulse Ox 98 02/04/22 20:22 O2 Del Method 02/04/22 20:22 BMI result Body Mass Index 23.0 Appearance: Alert. Oriented X3. No acute distress. Eyes: Pupils equal, round and reactive to light. ENT: Pharynx normal. Neck: Normal inspection. Neck supple. CVS: Normal heart rate and rhythm. Pulses normal. Respiratory: No respiratory distress. Breath sounds normal. Abdomen: Soft and nontender. Skin: Skin warm and dry. Normal skin color. Normal skin turgor. Extremities: No lower extremity edema. Gait well-balanced will coordinated. Neuro: No motor deficit. No sensory deficit. Cranial nerves 2-12 intact. Course Course Course Narrative: 46-year-old male transition to female presents for crisis evaluation for substance abuse. Patient would like detox and or respite. States that she has been using cocaine tired of the lifestyle. Will order lab values, PHN consult, and value stream coach. 18:00 BHN consult complete, plan is for outpatient follow-up, patient given a list of detox facilities that she can contact. 18:30 patient was about to be discharged, stated that she is now suicidal. Patient is now voluntary inpatient bed search. Physician observation started at this time. MDM - Psych Differential Diagnosis Differential diagnosis: Likely acute psychosis, bipolar disorder, drug-induced psychotic disorder, substance abuse and mood disorder Medical Records Attestation: I reviewed the patient's medical records. Lab Data Attestation: I reviewed the patient's lab results. Result diagrams: 02/04/22 15:45 02/04/22 15:45 Labs: Lab Results 02/04/22 02/04/22 02/04/22 Range/Units 15:37 15:45 15:45 WBC 11.5 H (4.8-10.8) X10*3/uL RBC 5.12 (4.60-5.80) X10*6/uL Hgb 15.5 (14.0-18.0) g/dl Hct 45.4 (42.0-52.0) % MCV 88.7 (80.0-98.0) fL MCH 30.3 (27.0-33.0) pg MCHC 34.1 (31.0-36.0) g/dl RDW 12.4 (11.0-16.0) % Plt Count 312 D (160-400) X10*3/uL MPV 10.1 (9.4-12.4) fL Immature Gran % (Auto) 0.3 (0.0-0.4) % Neut % (Auto) 59.0 (45-73) % Lymph % (Auto) 28.5 (20-40) % [place] % (Auto) 9.6 (2-11) % Eos % (Auto) 1.8 (0-4) % Baso % (Auto) 0.8 (0-2) % Lymph # (Auto) 3.3 (1.2-4.9) X10*3/uL [place] # (Auto) 1.1 (0.1-1.2) X10*3/uL Eos # (Auto) 0.2 (0.0-0.4) X10*3/uL Baso # (Auto) 0.1 (0.0-0.2) X10*3/uL Abs Immat Gran (auto) 0.04 H (0.00-0.03) X10*3/uL Absolute Neuts (auto) 6.8 (2.0-8.3) x10*3/uL Absolute Nucleated RBC 0.000 (0.0-0.012) X10*3/uL Nucleated RBC % (auto) 0.0 (0.0-0.2) /100WBC Sodium 140 (135-145) mmol/L Potassium 4.0 (3.3-5.1) mmol/L Chloride 102 (96-108) mmol/L Carbon Dioxide 25 (22-29) mmol/L Anion Gap 17 (12-20) BUN 31 H D (9-16) mg/dL Creatinine 0.98 (0.5-1.4) mg/dL Estim Creat Clear Calc 100.7 Estimated GFR > 60 Random Glucose 91 (60-115) mg/dL Calcium 10.0 D (8.4-10.2) mg/dL Total Bilirubin 1.6 H (0.0-1.0) mg/dL AST 38 H D (5-37) U/L ALT 34 (0-40) U/L Alkaline Phosphatase 83 (39-117) U/L Total Protein 7.9 D (6.5-8.0) g/dL Albumin 4.8 D (3.5-5.0) g/dL Urine Opiates Screen (Not Detect) Urine Fentanyl Screen (Not Detect) Ur Barbiturates Screen (Not Detect) Ur Phencyclidine Scrn (Not Detect) Ur Amphetamines Screen (Not Detect) U Benzodiazepines Scrn (Not Detect) Urine Cocaine Screen (Not Detect) U Marijuana (THC) Screen (Not Detect) COVID-19 ([facility]) Negative (Negative) COVID-19 Clin Com See Note 02/04/22 Range/Units 16:31 WBC (4.8-10.8) X10*3/uL RBC (4.60-5.80) X10*6/uL Hgb (14.0-18.0) g/dl Hct (42.0-52.0) % MCV (80.0-98.0) fL MCH (27.0-33.0) pg MCHC (31.0-36.0) g/dl RDW (11.0-16.0) % Plt Count (160-400) X10*3/uL MPV (9.4-12.4) fL Immature Gran % (Auto) (0.0-0.4) % Neut % (Auto) (45-73) % Lymph % (Auto) (20-40) % [place] % (Auto) (2-11) % Eos % (Auto) (0-4) % Baso % (Auto) (0-2) % Lymph # (Auto) (1.2-4.9) X10*3/uL [place] # (Auto) (0.1-1.2) X10*3/uL Eos # (Auto) (0.0-0.4) X10*3/uL Baso # (Auto) (0.0-0.2) X10*3/uL Abs Immat Gran (auto) (0.00-0.03) X10*3/uL Absolute Neuts (auto) (2.0-8.3) x10*3/uL Absolute Nucleated RBC (0.0-0.012) X10*3/uL Nucleated RBC % (auto) (0.0-0.2) /100WBC Sodium (135-145) mmol/L Potassium (3.3-5.1) mmol/L Chloride (96-108) mmol/L Carbon Dioxide (22-29) mmol/L Anion Gap (12-20) BUN (9-16) mg/dL Creatinine (0.5-1.4) mg/dL Estim Creat Clear Calc Estimated GFR Random Glucose (60-115) mg/dL Calcium (8.4-10.2) mg/dL Total Bilirubin (0.0-1.0) mg/dL AST (5-37) U/L ALT (0-40) U/L Alkaline Phosphatase (39-117) U/L Total Protein (6.5-8.0) g/dL Albumin (3.5-5.0) g/dL Urine Opiates Screen Not Detected (Not Detect) Urine Fentanyl Screen Not Detected (Not Detect) Ur Barbiturates Screen Not Detected (Not Detect) Ur Phencyclidine Scrn Not Detected (Not Detect) Ur Amphetamines Screen Not Detected (Not Detect) U Benzodiazepines Scrn Not Detected (Not Detect) Urine Cocaine Screen POSITIVE H (Not Detect) U Marijuana (THC) Screen Not Detected (Not Detect) COVID-19 ([place]) (Negative) COVID-19 Clin Com Discharge Plan Discharge Clinical Impression: Bipolar disorder, Depression, Cocaine abuse Patient Disposition: Still a Patient Instructions: Bipolar Disorder (ED), Cocaine Abuse (ED), Depression (ED) Additional Instructions: Follow-up detox. Thank you for choosing this emergency department for evaluation. Please follow-up with primary care physician as needed. Return to the emergency department for any new, concerning, or worsening symptoms. Prescriptions: No Action prazosin 1 mg capsule 1 cap PO BEDTIME lithium carbonate 600 mg capsule 1 cap PO BID quetiapine 50 mg tablet 1 tab PO BEDTIME amoxicillin-pot clavulanate 875-125 mg tablet 1 tab PO BID 7 Days Qty: 14 0RF
[2022-02-04 15:51] LABS: MANUAL DIFF FLAG NO
--- NOTE | 2022-02-04 15:51 | MHC.CARE ---
Care Team completed smart sheet.
[2022-02-04 16:01] LABS: Basophils Absolute Auto 0.1 X10*3/uL (0.0-0.2); Basophils Percent Auto 0.8 % (0-2); Eosinophils Absolute Auto 0.2 X10*3/uL (0.0-0.4); Eosinophils Percent Auto 1.8 % (0-4); Hematocrit 45.4 % (42.0-52.0); Hemoglobin 15.5 g/dl (14.0-18.0); Imm Gran Abs Auto 0.04 X10*3/uL (0.00-0.03); Imm Gran Pct Auto 0.3 % (0.0-0.4); Lymphocytes Absolute Auto 3.3 X10*3/uL (1.2-4.9); Lymphocytes Percent Auto 28.5 % (20-40); Mean Corpuscular HGB Conc 34.1 g/dl (31.0-36.0); Mean Corpuscular Hemoglobin 30.3 pg (27.0-33.0); Mean Corpuscular Volume 88.7 fL (80.0-98.0); Mean Platelet Volume 10.1 fL (9.4-12.4); Monocytes Absolute Auto 1.1 X10*3/uL (0.1-1.2); Monocytes Percent Auto 9.6 % (2-11); Neutrophils Absolute Auto 6.8 x10*3/uL (2.0-8.3); Platelet Count 312 X10*3/uL (160-400); Red Blood Count 5.12 X10*6/uL (4.60-5.80); Red Cell Distribution Width 12.4 % (11.0-16.0); White Blood Count 11.5 X10*3/uL (4.8-10.8)
[2022-02-04 16:07] LABS: COVID-19 Test Negative (Negative)
[2022-02-04 16:14] LABS: Alanine Aminotransferase 34 U/L (0-40); Albumin Level 4.8 g/dL (3.5-5.0); Alkaline Phosphatase 83 U/L (39-117); Anion Gap 17 (12-20); Aspartate Amino Transferase 38 U/L (5-37); Bilirubin Total 1.6 mg/dL (0.0-1.0); Blood Urea Nitrogen 31 mg/dL (9-16); Carbon Dioxide 25 mmol/L (22-29); Chloride 102 mmol/L (96-108); Creatinine Clr Calc Pharmacy 100.7; Estimated Glomerular Filt Rate > 60; Glucose Random 91 mg/dL (60-115); Sodium 140 mmol/L (135-145); Total Protein 7.9 g/dL (6.5-8.0)
[2022-02-04 17:03] LABS: Amphetamine Screen Urine Not Detected (Not Detect); Barbiturates, Urine Not Detected (Not Detect); Benzodiazepines Screen Urine Not Detected (Not Detect); Cannabinoid Screen Urine Not Detected (Not Detect); Cocaine Screen Urine POSITIVE (Not Detect); Fentanyl, urine Not Detected (Not Detect); Opiate Screen Urine Not Detected (Not Detect); Phencyclidine Screen Urine Not Detected (Not Detect)
[2022-02-04 20:11] VITALS: PULSE 56
[2022-02-04 20:22] VITALS: BP 111/63; PULSE 56; RESP 16; TEMP 36.6; O2SAT 98
[2022-02-04] MEDS: Acetaminophen 325 MG TABLET 650 MG PO (20:34)
[2022-02-04] MEDS: LORazepam 1 MG TABLET 2 MG PO (20:34)
[2022-02-04 22:27] VITALS: BP 100/61; PULSE 53; RESP 18; TEMP 36.6; O2SAT 97
--- NOTE | 2022-02-04 23:38 | PC.NURSE ---
Med rec completed with reference to patient medical record. Patient also confirmed that she is still taking these meds.
== END 2022-02-05 10:43 | disposition home or self-care (01) ==
PROVIDERS: Nurse Practitioner Family; Emergency Provider Emergency Medicine
DX: F31.9 Bipolar disorder, unspecified (principal); F14.10 Cocaine abuse, uncomplicated; Z20.822 Contact with and (suspected) exposure to COVID-19; F19.10 Other psychoactive substance abuse, uncomplicated; F60.9 Personality disorder, unspecified; F64.0 Transsexualism; Z79.899 Other long term (current) drug therapy
CPT/HCPCS: 80053; 80307; 85025; 87635; 99284

== ENCOUNTER 2022-02-15 00:30 | Emergency (ER) | payer MEDICAID, SELFPAY ==
[2022-02-15 00:43] VITALS: BP 117/68; PULSE 55; RESP 16; TEMP 36.7; O2SAT 96; BMI 25.1
--- NOTE | 2022-02-15 00:50 | ED_ITS ---
HPI - Nausea/Vomiting/Diarrhea General Chief complaint: Nausea/Vomiting/Diarrhea Stated complaint: vomiting Time Seen by Provider: 02/15/22 00:50 Source: patient Mode of arrival: ambulatory Limitations: no limitations History of Present Illness HPI Narrative: Patient had some food from the grocery store yesterday since early a.m. been throwing up and having diarrhea vomited about 10-15 times had about 4-5 bowel m ovements his mother also sick with same no fever no chills no cold symptoms no abdominal pain stool was watery Related Data Home Medications Medication Instructions Recorded Confirmed lithium carbonate 600 mg capsule 1 cap PO BID 01/11/22 02/04/22 prazosin 1 mg capsule 1 cap PO BEDTIME 01/11/22 02/04/22 quetiapine 50 mg tablet 1 tab PO BEDTIME 01/11/22 02/04/22 Allergies Allergy/AdvReac Type Severity Reaction Status Date / Time nicotine [From NICODERM CQ] Allergy Mild SHORTNESS Verified 11/22/21 01:54 OF BREATH ketchup [KETCHUP] Allergy Unknown RASH Verified 11/22/21 01:54 onion [ONION] Allergy Unknown RASH Verified 11/22/21 01:54 tomato [TOMATO] Allergy Unknown RASH Verified 11/22/21 01:54 Review of Systems Review of Systems: Yes all other systems are reviewed and are negative PMF[facility] Past Medical History Medical History Bipolar 1 disorder Personality disorder Transgender Social History Social History Alcohol intake: current Alcohol intake frequency: 0-2 drinks per day Alcohol type: hard liquor Patient Tobacco Use Status: Never used Tobacco Substance Use Type: Crack/Cocaine Advance Directives: No Advance Directives Information Provided: Yes Physical Exam Vital Signs: Vital Signs: Last Vital Signs Temp 98.0 F 02/15/22 00:43 Pulse 55 02/15/22 00:43 Resp 16 02/15/22 00:43 BP 117/68 02/15/22 00:43 Pulse Ox 96 02/15/22 00:43 O2 Del Method 02/15/22 00:43 BMI result Body Mass Index 25.1 Appearance: Alert. Oriented X3. No acute distress. Anxious Eyes: No pallor icterus ENT: Pharynx normal. Oral Mucosa dry Neck: Normal inspection. Neck supple. CVS: Normal heart rate and rhythm. Pulses normal. Respiratory: No respiratory distress. Equal air entry bilateral, no wheezing/rales/rhonchi Abdomen: Soft and nontender. Bowel sounds are present, no mass palpable, no CVA tenderness Skin: Skin warm and dry. Normal skin color. Normal skin turgor. Extremities: No lower extremity edema. No calf tenderness Neuro: Oriented X 3. MDM - Nausea/Vomiting/Diarrhea MDM Narrative Medical decision making narrative: 1 am: Patient likely with gastroenteritis likely from bad food will give IV fluids check basic labs ,patient signed out to Dr. Stockton for disposition and re-evaluation Differential Diagnosis Differential diagnosis: Likely gastroenteritis Discharge Plan Discharge Clinical Impression: Gastroenteritis Patient Disposition: Still a Patient Prescriptions: No Action prazosin 1 mg capsule 1 cap PO BEDTIME lithium carbonate 600 mg capsule 1 cap PO BID quetiapine 50 mg tablet 1 tab PO BEDTIME
[2022-02-15 01:25] VITALS: BP 108/60; PULSE 56; RESP 18; TEMP 37.2; O2SAT 95
[2022-02-15 01:39] LABS: MANUAL DIFF FLAG NO
[2022-02-15 01:41] LABS: Appearance Urine Clear; Basophils Absolute Auto 0.1 X10*3/uL (0.0-0.2); Basophils Percent Auto 0.8 % (0-2); Color Urine Yellow; Eosinophils Absolute Auto 0.3 X10*3/uL (0.0-0.4); Eosinophils Percent Auto 2.6 % (0-4); Glucose Urine UA Negative (Negative); Hematocrit 41.9 % (42.0-52.0); Hemoglobin 14.1 g/dl (14.0-18.0); Imm Gran Abs Auto 0.02 X10*3/uL (0.00-0.03); Imm Gran Pct Auto 0.2 % (0.0-0.4); Leukocyte Esterase Urine Negative (Negative); Lymphocytes Absolute Auto 2.6 X10*3/uL (1.2-4.9); Lymphocytes Percent Auto 25.4 % (20-40); Mean Corpuscular HGB Conc 33.7 g/dl (31.0-36.0); Mean Corpuscular Hemoglobin 30.1 pg (27.0-33.0); Mean Corpuscular Volume 89.5 fL (80.0-98.0); Mean Platelet Volume 9.9 fL (9.4-12.4); Monocytes Absolute Auto 0.8 X10*3/uL (0.1-1.2); Monocytes Percent Auto 7.7 % (2-11); Neutrophils Absolute Auto 6.6 x10*3/uL (2.0-8.3); Neutrophils Percent Auto 63.3 % (45-73); Nitrite Urine Negative (Negative); Platelet Count 249 X10*3/uL (160-400); Red Blood Count 4.68 X10*6/uL (4.60-5.80); Red Cell Distribution Width 12.6 % (11.0-16.0); Urine Blood Negative (Negative); Urine Ketones Negative (Negative); Urine Protein Negative (Neg-Trace); White Blood Count 10.4 X10*3/uL (4.8-10.8)
[2022-02-15] MEDS: Dicyclomine HCl 10 MG CAPSULE 20 MG PO (01:50)
[2022-02-15] MEDS: Ondansetron ODT 4 MG TAB.RAPDIS TRANSLINGU (01:50)
[2022-02-15 02:02] LABS: COVID-19 Test Negative (Negative)
[2022-02-15 02:13] LABS: Alanine Aminotransferase 21 U/L (0-40); Albumin Level 4.1 g/dL (3.5-5.0); Alkaline Phosphatase 72 U/L (39-117); Anion Gap 12 (12-20); Aspartate Amino Transferase 23 U/L (5-37); Bilirubin Direct 0.3 mg/dL (0.0-0.5); Bilirubin Total 0.9 mg/dL (0.0-1.0); Blood Urea Nitrogen 25 mg/dL (9-16); Calcium 9.4 mg/dL (8.4-10.2); Carbon Dioxide 24 mmol/L (22-29); Chloride 109 mmol/L (96-108); Creatinine Clr Calc Pharmacy 115.5; Estimated Glomerular Filt Rate > 60; Glucose Random 86 mg/dL (60-115); Sodium 141 mmol/L (135-145); Total Protein 6.6 g/dL (6.5-8.0)
[2022-02-15 02:44] LABS: Lipase 16 U/L (8-78)
== END 2022-02-15 03:05 | disposition home or self-care (01) ==
PROVIDERS: Emergency Provider Internal Medicine
DX: K52.9 Noninfective gastroenteritis and colitis, unspecified (principal); R11.2 Nausea with vomiting, unspecified; Z20.822 Contact with and (suspected) exposure to COVID-19
CPT/HCPCS: 36415; 80048; 80076; 81003; 83690; 85025; 87635; 99283

== ENCOUNTER 2022-02-17 00:23 | Emergency (ER) | payer MEDICAID, SELFPAY ==
[2022-02-17 00:45] VITALS: BP 112/65; PULSE 57; RESP 16; TEMP 36.2; O2SAT 96; BMI 23.0
--- NOTE | 2022-02-17 01:34 | ED.PSYCH ---
HPI - Psych General Chief Complaint: Psychiatric Symptoms Stated Complaint: SI Time Seen by Provider: 02/17/22 01:25 Source: patient Mode of arrival: ambulatory Limitations: no limitations History of Present Illness HPI Narrative: Patient comes to emergency room complaining of suicidal ideation. Patient came from respite, staff heard her talking about committing suicide, slicing her wrists. Patient was asked to come to the emergency room. Patient states she has no physical injuries. Related Data Home Medications Medication Instructions Recorded Confirmed lithium carbonate 600 mg capsule 1 cap PO BID 01/11/22 02/04/22 prazosin 1 mg capsule 1 cap PO BEDTIME 01/11/22 02/04/22 quetiapine 50 mg tablet 1 tab PO BEDTIME 01/11/22 02/04/22 clindamycin HCl 300 mg capsule 1 cap PO Q6H 02/17/22 02/17/22 haloperidol 10 mg 02/17/22 trazodone 50 mg tablet 1 tab PO BEDTIME PRN insomnia 02/17/22 02/17/22 Previous Rx's Medication Instructions Recorded ondansetron 4 mg disintegrating 4 mg PO Q6-8H PRN nausea and 02/15/22 tablet vomiting #7 tabs Allergies Allergy/AdvReac Type Severity Reaction Status Date / Time nicotine [[facility] Allergy Mild SHORTNESS Verified 02/17/22 00:45 OF BREATH ketchup [KETCHUP] Allergy Unknown RASH Verified 02/17/22 00:45 onion [ONION] Allergy Unknown RASH Verified 02/17/22 00:45 tomato [TOMATO] Allergy Unknown RASH Verified 02/17/22 00:45 Review of Systems Review of Systems: Constitutional : No Weight loss, No Fever, No Chills, No Night Sweats, No Fatigue, No Malaise ENT/Mouth : No Hearing loss, No Ear Pain, No Nasal Congestion, No Sinus Pain, No Hoarseness, No sore throat, No Rhinorrhea, No Swallowing Difficulty Eyes: No Eye Pain, No Swelling, No Redness, No Foreign Body, No Discharge, No Vision Changes Cardiovascular : No Chest Pain, No SOB, No Dyspnea on Exertion, No Orthopnea, No Edema, No Palpitations Respiratory : No Cough, No Sputum, No Wheezing, No Smoke Exposure, No Dyspnea Gastrointestinal : No Nausea, No Vomiting, No Diarrhea, No Constipation, No abdominal Pain, No Hematochezia, No Melena Genitourinary : no irregular bleeding, No Dysuria, No Urinary Frequency, No Hematuria, No Urinary Incontinence, No Urgency, No Flank Pain, No Urinary Flow Changes, No Hesitancy Musculoskeletal : No joint pain, No Myalgias, No Joint Swelling Skin : No Skin Lesions, No rash Neuro : No Weakness, No Numbness, No Paresthesias, No Loss of Consciousness, No Dizziness, No Headache Psych : Complaining of suicidal ideation, homicidal ideation Heme/Lymph: No Bruising, No Bleeding,No Lymphadenopathy Endocrine : No Polyuria, No Polydipsia, No Temperature Intolerance [facility] Past Medical History Medical History Bipolar 1 disorder Personality disorder Transgender Social History Social History Alcohol intake: current Alcohol intake frequency: 0-2 drinks per day Alcohol type: hard liquor Patient Tobacco Use Status: Never used Tobacco Substance Use Type: Crack/Cocaine Advance Directives: No Advance Directives Information Provided: Yes Physical Exam Vital Signs: Vital Signs: Last Vital Signs Temp 97.1 F 02/17/22 00:45 Pulse 57 02/17/22 00:45 Resp 16 02/17/22 00:45 BP 112/65 02/17/22 00:45 Pulse Ox 96 02/17/22 00:45 O2 Del Method 02/17/22 00:45 BMI result Body Mass Index 23.0 Const: Other: Appearance: Alert. Oriented X3. No acute distress. Eyes: Pupils equal, round and reactive to light. ENT: Pharynx normal. Neck: Normal inspection. Neck supple. No lymph nodes noted. No crepitus CVS: Normal heart rate and rhythm. Pulses normal. Normal S1 and S2 Respiratory: No respiratory distress. Breath sounds normal. No Wheezing. No rales Abdomen: Soft and nontender. No rigidity. No distention. Skin: Skin warm and dry. Normal skin color. Normal skin turgor. Extremities: No lower extremity edema. No Lacerations. No Rash Neuro: Oriented X 3. No motor deficit. No sensory deficit. Moving all extremities. No slurred speech. CN 2 through 12 grossly intact Psych: calm, cooperative, normal affect Course Course Course Narrative: Behavioral health network consult pending Physician observation started at 01:36 Discharge Plan Discharge Clinical Impression: Suicidal ideation Patient Disposition: Still a Patient Prescriptions: No Action prazosin 1 mg capsule 1 cap PO BEDTIME lithium carbonate 600 mg capsule 1 cap PO BID quetiapine 50 mg tablet 1 tab PO BEDTIME ondansetron 4 mg tablet,disintegrating 4 mg PO Q6-8H PRN (Reason: nausea and vomiting) Qty: 7 0RF
[2022-02-17 02:14] LABS: MANUAL DIFF FLAG NO
[2022-02-17 02:15] LABS: Basophils Absolute Auto 0.1 X10*3/uL (0.0-0.2); Basophils Percent Auto 0.9 % (0-2); Eosinophils Absolute Auto 0.3 X10*3/uL (0.0-0.4); Eosinophils Percent Auto 3.2 % (0-4); Hemoglobin 14.3 g/dl (14.0-18.0); Imm Gran Abs Auto 0.02 X10*3/uL (0.00-0.03); Imm Gran Pct Auto 0.2 % (0.0-0.4); Lymphocytes Absolute Auto 3.5 X10*3/uL (1.2-4.9); Lymphocytes Percent Auto 33.7 % (20-40); Mean Corpuscular Hemoglobin 30.3 pg (27.0-33.0); Mean Platelet Volume 10.1 fL (9.4-12.4); Monocytes Absolute Auto 0.9 X10*3/uL (0.1-1.2); Monocytes Percent Auto 8.4 % (2-11); Neutrophils Absolute Auto 5.5 x10*3/uL (2.0-8.3); Neutrophils Percent Auto 53.6 % (45-73); Platelet Count 266 X10*3/uL (160-400); Red Blood Count 4.72 X10*6/uL (4.60-5.80); Red Cell Distribution Width 12.6 % (11.0-16.0); White Blood Count 10.3 X10*3/uL (4.8-10.8)
[2022-02-17 02:33] LABS: COVID-19 Test Negative (Negative); IDNOW Serial# BCCEAD1C
[2022-02-17 02:38] LABS: Ethanol < 10 mg/dL
[2022-02-17 05:52] VITALS: BP 111/60; PULSE 53; RESP 17; TEMP 36.6; O2SAT 96
[2022-02-17 08:41] LABS: Appearance Urine Clear; Color Urine Yellow; Glucose Urine UA Negative (Negative); Leukocyte Esterase Urine Negative (Negative); Nitrite Urine Negative (Negative); PH 5.5 (5.0-9.0); Specific Gravity - Urine 1.025 (1.005-1.025); Urine Blood Negative (Negative); Urine Ketones Negative (Negative); Urine Protein Negative (Neg-Trace)
[2022-02-17 09:22] LABS: Amphetamine Screen Urine Not Detected (Not Detect); Barbiturates, Urine Not Detected (Not Detect); Benzodiazepines Screen Urine Not Detected (Not Detect); Cannabinoid Screen Urine Not Detected (Not Detect); Cocaine Screen Urine POSITIVE (Not Detect); Fentanyl, urine Not Detected (Not Detect); Phencyclidine Screen Urine Not Detected (Not Detect)
[2022-02-17 09:54] LABS: Opiate Screen Urine Not Detected (Not Detect)
--- NOTE | 2022-02-17 12:31 | MHC.CARE ---
Pt?s CARE Plan is reviewed. Pt is a 46 y/o Armenian speaking, trans female who is previously known to the CARE Team through prior risk assessments and ED visits.? Today, pt self-presented to the ED from respite with a complaint of suicidal ideation with a plan to cut her wrists with a razor.? While at respite, staff heard her talking about committing suicide, cutting her wrists, and was advised to come to the emergency room.? Pt has been medically cleared and is being assessed by the CARE Team to determine appropriate treatment recommendations. Pt has a hx of inpt hospitalizations, CCS, and outpatient services.? Past documented hx of Borderline Personality Disorder, substance use, passive SI, and suicide attempts. Pt will often present to the ED with a complaint of SI and will vacillate between needing/ wanting an inpatient admission and wanting to be discharged.? Pt will often recant her SI and plan when she feels the process has taken too long. Pt is alert and oriented x4 and is assessed in her room in the behavioral health pod of the ED. She is dressed in hospital attire, appears disheveled and older than her stated age.? Her eye contact and speech are unremarkable.? She does at times, take an adversarial tone.? She reports interrupted sleep caused by nightmares.? She reports a good appetite.? She stated she has recently been placed on Haldol.? Her affect is flat, she denies AVH, HI, , and self-harm urges.? She states she is experiencing SI with a plan to cut her wrists with a razor. Insight, judgement, memory, concentration and impulse control appear at her baseline.? Pt appears to be at her baseline. CARE Team will follow up with pt in the latter part of the afternoon.
[2022-02-17 12:40] VITALS: BP 108/68; PULSE 51; RESP 16; TEMP 36.4; O2SAT 99
[2022-02-17] MEDS: Ibuprofen 600 MG TABLET PO (15:08)
[2022-02-17] MEDS: Clindamycin HCL 300 MG CAPSULE PO ×2 (15:09→20:07)
[2022-02-17] MEDS: Acetaminophen 325 MG TABLET 650 MG PO (20:07)
--- NOTE | 2022-02-18 01:27 | PC.NURSE ---
patient sleeping, resp are equal and unlabored. able to make needs known. [address] for safety
[2022-02-18] MEDS: Clindamycin HCL 300 MG CAPSULE PO (03:01)
[2022-02-18 03:11] VITALS: BP 110/63; PULSE 52; RESP 16; TEMP 36.7; O2SAT 98
--- NOTE | 2022-02-18 09:43 | MHC.CARE ---
CARE Team meets with pt at her request, as pt states to t/w that she is no longer suicidal, and neither are her alters and she is ready to go. CARE Team engages pt in discussion about an ongoing pattern about pt initially presenting to the ED with SI statements, followed by feeling better in the morning, no longer endorsing SI and wanting to leave. Pt identifies that she often comes to the ED when feeling anxious. Pt also states that she is now residing in [place] with her sister. Pt requests a ride to [place], [place] so she can meet up with her sister and return to [place]. CARE Team discusses recommendation for d/c with Dr. Vega, who agrees pt is appropriate for d/c. Pt is well known to t/w and [facility].
== END 2022-02-18 09:51 | disposition home or self-care (01) ==
PROVIDERS: Emergency Medicine; Emergency Provider Emergency Medicine Emergency Medical Services
DX: F33.1 Major depressive disorder, recurrent, moderate (principal); R45.851 Suicidal ideations; F14.90 Cocaine use, unspecified, uncomplicated; Z79.899 Other long term (current) drug therapy; Z20.822 Contact with and (suspected) exposure to COVID-19
CPT/HCPCS: 80307; 81003; 82077; 85025; 87635; 99285

== ENCOUNTER 2022-03-07 00:58 | Emergency (ER) | payer MEDICAID, SELFPAY ==
[2022-03-07 01:03] VITALS: BP 128/60; PULSE 57; RESP 18; TEMP 36; O2SAT 98; BMI 25.1
--- NOTE | 2022-03-07 01:17 | ED.PSYCH ---
HPI - Psych General Chief Complaint: Psychiatric Symptoms Stated Complaint: Suicidal Time Seen by Provider: 03/07/22 01:15 Source: patient Mode of arrival: ambulatory Limitations: no limitations History of Present Illness HPI Narrative: This is a 46-year-old transgender female past medical history of bipolar disorder, depression, anxiety, suicidal ideation presenting to the emergency department complaints of suicidal ideation without particular plan for the past few days. Patient tells me she is not quite sure how she would kill herself but she is feeling very suicidal. Denies homicidal ideation. Denies visual and tactile hallucinations. However tells me that she is having auditory hallucinations hearing people telling her to cut herself. Denies alcohol and tobacco use. Uses cocaine intermittently, last used two days ago. Denies medical complaints at this time. Denies toxic ingestion. Requesting inpatient admission. Related Data Home Medications Medication Instructions Recorded Confirmed lithium carbonate 600 mg capsule 1 cap PO BID 01/11/22 02/04/22 prazosin 1 mg capsule 1 cap PO BEDTIME 01/11/22 02/17/22 quetiapine 50 mg tablet 1 tab PO BEDTIME 01/11/22 02/04/22 clindamycin HCl 300 mg capsule 1 cap PO Q6H 02/17/22 02/17/22 haloperidol 10 mg 02/17/22 hydroxyzine HCl 50 mg tablet 1 tab PO Q6H PRN anxiety 02/17/22 02/17/22 trazodone 50 mg tablet 1 tab PO BEDTIME PRN insomnia 02/17/22 02/17/22 Previous Rx's Medication Instructions Recorded ondansetron 4 mg disintegrating 4 mg PO Q6-8H PRN nausea and 02/15/22 tablet vomiting #7 tabs Allergies Allergy/AdvReac Type Severity Reaction Status Date / Time nicotine [From [facility]] Allergy Mild SHORTNESS Verified 02/17/22 00:45 OF BREATH ketchup [KETCHUP] Allergy Unknown RASH Verified 02/17/22 00:45 onion [ONION] Allergy Unknown RASH Verified 02/17/22 00:45 tomato [TOMATO] Allergy Unknown RASH Verified 02/17/22 00:45 Review of Systems Review of Systems: Constitutional : No Weight loss, No Fever, No Chills, No Fatigue, No Malaise ENT/Mouth : No sore throat, No Rhinorrhea Eyes: No Eye Pain, No Swelling, No Redness Cardiovascular : No Chest Pain, No SOB, No Dyspnea on Exertion, No Orthopnea, No Edema, No Palpitations Respiratory : No Cough, No Sputum, No Wheezing Gastrointestinal : No Nausea, No Vomiting, No Diarrhea, No Constipation, No abdominal Pain, No Hematochezia, No Melena Genitourinary : No Dysuria, No Urinary Frequency, No Hematuria, Musculoskeletal : No joint pain, No Myalgias, No Joint Swelling Skin : No Skin Lesions, No rash Neuro : No Weakness, No Numbness, No Dizziness, No Headache Psych : + Anxiety/Panic, + Depression, + SI, + auditory hallucinations All other systems reviewed and are negative Yes all other systems are reviewed and are negative [facility] Past Medical History Attestation statement: The following information was validated with the patient. Source: old records reviewed and nursing notes reviewed Medical History Bipolar 1 disorder Personality disorder Transgender Social History Social History Alcohol intake: current Alcohol intake frequency: 0-2 drinks per day Alcohol type: hard liquor Patient Tobacco Use Status: Never used Tobacco Substance Use Type: Crack/Cocaine Advance Directives: No Physical Exam Vital Signs: Vital Signs: Last Vital Signs Temp 96.8 F 03/07/22 01:03 Pulse 57 03/07/22 01:03 Resp 18 03/07/22 01:03 BP 128/60 03/07/22 01:03 Pulse Ox 98 03/07/22 01:03 BMI result Body Mass Index 25.1 Vital signs stable Appearance: Alert.? Oriented X3.? No acute distress.? Head: Normocephalic, atraumatic, no step-offs or deformities Eyes: Pupils equal, round and reactive to light.? CVS: Normal heart rate and rhythm.? Pulses normal.? Respiratory: No respiratory distress.? Breath sounds normal.? Abdomen: Soft and nontender.? Skin: Skin warm and dry.? Normal skin color.? Normal skin turgor.? Extremities: No lower extremity edema.? No calf ttp. 5/5 strength to bilateral upper and lower extremities Neuro: Oriented X 3.? No motor deficit.? No sensory deficit. CN 2-12 intact Course Reevaluation(s) Reevaluation #1: Laboratory, urine pending. Sign-out given to night doctor Dr. Adrian Time: 01:22 Medical Decision Making Medical Decision Making [facility] Narrative: [id number] 46-year-old transgender female presents with suicidal ideation and auditory hallucinations Physical exam benign Plan at this time is medical clearance and evaluation by the behavioral health team.? Will place patient on a one-to-one. Critical Care Time Critical Care Time Critical Care Time: No Discharge Plan Discharge Clinical Impression: Suicidal ideation, Hallucination Patient Disposition: Still a Patient Prescriptions: No Action prazosin 1 mg capsule 1 cap PO BEDTIME lithium carbonate 600 mg capsule 1 cap PO BID quetiapine 50 mg tablet 1 tab PO BEDTIME ondansetron 4 mg tablet,disintegrating 4 mg PO Q6-8H PRN (Reason: nausea and vomiting) Qty: 7 0RF clindamycin HCl 300 mg capsule 1 cap PO Q6H trazodone 50 mg tablet 1 tab PO BEDTIME PRN (Reason: insomnia) haloperidol 10 mg hydroxyzine HCl 50 mg tablet 1 tab PO Q6H PRN (Reason: anxiety)
[2022-03-07 01:43] LABS: MANUAL DIFF FLAG NO
[2022-03-07 01:44] LABS: Basophils Absolute Auto 0.1 X10*3/uL (0.0-0.2); Basophils Percent Auto 0.5 % (0-2); Eosinophils Absolute Auto 0.3 X10*3/uL (0.0-0.4); Eosinophils Percent Auto 2.6 % (0-4); Hematocrit 38.8 % (42.0-52.0); Hemoglobin 13.7 g/dl (14.0-18.0); Imm Gran Abs Auto 0.02 X10*3/uL (0.00-0.03); Imm Gran Pct Auto 0.2 % (0.0-0.4); Lymphocytes Absolute Auto 2.5 X10*3/uL (1.2-4.9); Lymphocytes Percent Auto 24.9 % (20-40); Mean Corpuscular HGB Conc 35.3 g/dl (31.0-36.0); Mean Corpuscular Hemoglobin 30.9 pg (27.0-33.0); Mean Corpuscular Volume 87.4 fL (80.0-98.0); Mean Platelet Volume 10.2 fL (9.4-12.4); Monocytes Percent Auto 9.7 % (2-11); Neutrophils Absolute Auto 6.1 x10*3/uL (2.0-8.3); Neutrophils Percent Auto 62.1 % (45-73); Platelet Count 230 X10*3/uL (160-400); Red Blood Count 4.44 X10*6/uL (4.60-5.80); Red Cell Distribution Width 12.2 % (11.0-16.0); White Blood Count 9.8 X10*3/uL (4.8-10.8)
[2022-03-07 01:56] LABS: COVID-19 Test Negative (Negative)
[2022-03-07 01:57] LABS: Ethanol < 10 mg/dL
[2022-03-07 02:09] LABS: Alanine Aminotransferase 24 U/L (0-40); Albumin Level 4.1 g/dL (3.5-5.0); Alkaline Phosphatase 69 U/L (39-117); Anion Gap 13 (12-20); Aspartate Amino Transferase 30 U/L (5-37); Bilirubin Total 1.4 mg/dL (0.0-1.0); Blood Urea Nitrogen 21 mg/dL (9-16); Carbon Dioxide 23 mmol/L (22-29); Chloride 108 mmol/L (96-108); Creatinine Clr Calc Pharmacy 141.9; Estimated Glomerular Filt Rate > 60; Glucose Random 92 mg/dL (60-115); Potassium 3.7 mmol/L (3.3-5.1); Salicylate < 5.0 mg/dL (15-30); Sodium 140 mmol/L (135-145); Total Protein 6.6 g/dL (6.5-8.0)
--- NOTE | 2022-03-07 06:45 | PC.NURSE ---
Patient just got transferred from main ED, currently in bed appears sleeping, no distress observed/reported, med rec completed/pending provider's approval, pending urine sample, BHN referral completed/pending ETA, no behavior concerns at this time, VSS, will continue to monitor.
--- NOTE | 2022-03-07 07:15 | PC.NURSE ---
patient appears to remain asleep at present respirations are even and unlabored patient appears in no distress
[2022-03-07 07:36] VITALS: BP 107/73; PULSE 68; RESP 18; TEMP 37.1; O2SAT 96
--- NOTE | 2022-03-07 10:54 | PHA.MEDREC ---
Pharmacy Consult ? Medication Reconciliation Pharmacy has completed the medication reconciliation. Patient was very sleepy and not sure of medications. States that only taking 4 prescriptions. After a few tries she states the names of the medications and it matched with the pharmacy claim history.
--- NOTE | 2022-03-07 13:48 | MHC.CARE ---
CARE Team checks in with Dr. Haley about pt, who reports that discharge is in as pt was seen by N. CARE Team approaches pt who is sleeping in ED 22H. Pt initially declines to awake and face TW but eventually agrees. Pt states I am getting admitted, and when TW corrects pt that this was not BHN's recommendation, pt becomes agitated. N recommended f/u but identified that pt would likely be discharged. CARE Team has seen a pattern of pt presenting with SI only to deny making these statements days later and demands to leave the ED. CARE Team offers pt a phone to use to coordinate a place to stay or to reach out to [facility], where pt frequently goes for support, which pt refuses. CARE Team offers to get pt a ride, which is also refused. Pt continues to escalate, swearing, yelling and making verbal threats. Per. Dr. Haley pt will be discharged.
[2022-03-09 11:54] LABS: Acetaminophen LAB < 1 mcg/mL (<30)
== END 2022-03-07 13:32 | disposition home or self-care (01) ==
PROVIDERS: Physician Assistant; Emergency Provider Emergency Medicine
DX: F33.1 Major depressive disorder, recurrent, moderate (principal); R45.851 Suicidal ideations; F41.1 Generalized anxiety disorder; F43.0 Acute stress reaction; Z20.822 Contact with and (suspected) exposure to COVID-19; Z79.899 Other long term (current) drug therapy
CPT/HCPCS: 36415; 80053; 80143; 80179; 82077; 85025; 87635; 99284

== ENCOUNTER 2022-05-19 04:19 | Emergency (ER) | payer MEDICAID, SELFPAY ==
[2022-05-19 04:22] VITALS: BP 115/66; PULSE 59; RESP 18; TEMP 36.6; O2SAT 96; BMI 25.1
[2022-05-19 04:41] LABS: MANUAL DIFF FLAG NO
[2022-05-19 04:42] LABS: Basophils Absolute Auto 0.1 X10*3/uL (0.0-0.2); Basophils Percent Auto 0.6 % (0-2); Eosinophils Absolute Auto 0.4 X10*3/uL (0.0-0.4); Eosinophils Percent Auto 3.9 % (0-4); Hematocrit 40.3 % (42.0-52.0); Imm Gran Abs Auto 0.02 X10*3/uL (0.00-0.03); Imm Gran Pct Auto 0.2 % (0.0-0.4); Lymphocytes Percent Auto 36.2 % (20-40); Mean Corpuscular HGB Conc 34.7 g/dl (31.0-36.0); Mean Corpuscular Hemoglobin 30.2 pg (27.0-33.0); Mean Corpuscular Volume 86.9 fL (80.0-98.0); Mean Platelet Volume 9.9 fL (9.4-12.4); Monocytes Percent Auto 9.4 % (2-11); Neutrophils Absolute Auto 5.4 x10*3/uL (2.0-8.3); Neutrophils Percent Auto 49.7 % (45-73); Platelet Count 251 X10*3/uL (160-400); Red Blood Count 4.64 X10*6/uL (4.60-5.80); Red Cell Distribution Width 12.1 % (11.0-16.0); White Blood Count 10.9 X10*3/uL (4.8-10.8)
[2022-05-19 04:58] LABS: Alanine Aminotransferase 18 U/L (0-40); Albumin Level 3.7 g/dL (3.5-5.0); Alkaline Phosphatase 63 U/L (39-117); Anion Gap 14 (12-20); Aspartate Amino Transferase 27 U/L (5-37); Blood Urea Nitrogen 22 mg/dL (9-16); Calcium 8.8 mg/dL (8.4-10.2); Carbon Dioxide 21 mmol/L (22-29); Chloride 108 mmol/L (96-108); Estimated Glomerular Filt Rate > 60; Glucose Random 102 mg/dL (60-115); Potassium 3.8 mmol/L (3.3-5.1); Sodium 139 mmol/L (135-145); Total Protein 6.1 g/dL (6.5-8.0)
--- NOTE | 2022-05-19 05:15 | ED_ITS ---
HPI - Abdominal Pain General Chief Complaint: Nausea/Vomiting/Diarrhea Stated Complaint: vomiting Time Seen by Provider: 05/19/22 05:11 Source: patient Mode of arrival: ambulatory Limitations: no limitations History of Present Illness HPI narrative: Patient 47 years old transgender female with past medical history of bipolar disorder, depression, anxiety comes in for nausea vomiting diarrhea for last 2 days with diffuse abdominal pain patient vomited about 10 times and had same number of watery stool no fever no chills no cough no urinary symptoms Related Data Home Medications Medication Instructions Recorded Confirmed haloperidol 10 mg tablet 10 mg PO BEDTIME 03/07/22 03/07/22 hydroxyzine HCl 50 mg tablet 50 mg PO Q6H PRN anxiety 03/07/22 03/07/22 lithium carbonate 600 mg capsule 600 mg PO BID 03/07/22 03/07/22 prazosin 1 mg capsule 1 mg PO BEDTIME 03/07/22 03/07/22 Previous Rx's Medication Instructions Recorded ondansetron 4 mg disintegrating 4 mg PO Q6-8H PRN nausea and 05/19/22 tablet vomiting #10 tabs Allergies Allergy/AdvReac Type Severity Reaction Status Date / Time nicotine [From NICODERM CQ] Allergy Mild SHORTNESS Verified 02/17/22 00:45 OF BREATH ketchup [KETCHUP] Allergy Unknown RASH Verified 02/17/22 00:45 onion [ONION] Allergy Unknown RASH Verified 02/17/22 00:45 tomato [TOMATO] Allergy Unknown RASH Verified 02/17/22 00:45 PMFSH Past Medical History Medical History Bipolar 1 disorder Personality disorder Transgender Social History Social History Alcohol intake: current Alcohol intake frequency: 0-2 drinks per day Alcohol type: hard liquor Patient Tobacco Use Status: Never used Tobacco Substance Use Type: Crack/Cocaine Advance Directives: No Advance Directives Information Provided: Yes Physical Exam ED Vital Signs: Vital Signs - 24 hr 05/19/22 04:22 05/19/22 05:52 05/19/22 07:04 Temperature 97.8 F 98.2 F 98.1 F Pulse Rate 59 56 61 Respiratory Rate 18 15 16 Blood Pressure 115/66 93/44 L 103/55 L Pulse Oximetry 96 97 95 Oxygen Delivery Method Room Air Room Air Room Air BMI result Body Mass Index 25.1 Medical Decision Making Medical Decision Making MDM Narrative: Patient with acute gastroenteritis with stable labs responded to p.o. Zofran taking p.o. fluids now will discharge patient home Lab Data [facility] Lab Attestation statement: I reviewed the patient's lab results. 05/19/22 04:36 05/19/22 04:36 Labs: Lab Results 05/19/22 05/19/22 05/19/22 Range/Units 04:36 04:36 04:36 WBC 10.9 H (4.8-10.8) X10*3/uL RBC 4.64 (4.60-5.80) X10*6/uL Hgb 14.0 (14.0-18.0) g/dl Hct 40.3 L (42.0-52.0) % MCV 86.9 (80.0-98.0) fL MCH 30.2 (27.0-33.0) pg MCHC 34.7 (31.0-36.0) g/dl RDW 12.1 (11.0-16.0) % Plt Count 251 (160-400) X10*3/uL MPV 9.9 (9.4-12.4) fL Immature Gran % (Auto) 0.2 (0.0-0.4) % Neut % (Auto) 49.7 (45-73) % Lymph % (Auto) 36.2 (20-40) % [place] % (Auto) 9.4 (2-11) % Eos % (Auto) 3.9 (0-4) % Baso % (Auto) 0.6 (0-2) % Lymph # (Auto) 4.0 (1.2-4.9) X10*3/uL [place] # (Auto) 1.0 (0.1-1.2) X10*3/uL Eos # (Auto) 0.4 (0.0-0.4) X10*3/uL Baso # (Auto) 0.1 (0.0-0.2) X10*3/uL Abs Immat Gran (auto) 0.02 (0.00-0.03) X10*3/uL Absolute Neuts (auto) 5.4 (2.0-8.3) x10*3/uL Absolute Nucleated RBC 0.000 (0.0-0.012) X10*3/uL Nucleated RBC % (auto) 0.0 (0.0-0.2) /100WBC Sodium 139 (135-145) mmol/L Potassium 3.8 (3.3-5.1) mmol/L Chloride 108 (96-108) mmol/L Carbon Dioxide 21 L (22-29) mmol/L Anion Gap 14 (12-20) BUN 22 H (9-16) mg/dL Creatinine 0.84 (0.5-1.4) mg/dL Estim Creat Clear Calc 117.0 Estimated GFR > 60 Random Glucose 102 (60-115) mg/dL Calcium 8.8 (8.4-10.2) mg/dL Total Bilirubin 1.0 (0.0-1.0) mg/dL AST 27 (5-37) U/L ALT 18 (0-40) U/L Alkaline Phosphatase 63 (39-117) U/L Total Protein 6.1 L (6.5-8.0) g/dL Albumin 3.7 (3.5-5.0) g/dL Lipase 13 (8-78) U/L Urine Color Urine Appearance Urine pH (5.0-9.0) Ur Specific [place] (1.005-1.025) Urine Protein (Neg-Trace) mg/dL Urine Glucose (UA) (Negative) mg/dL Urine Ketones (Negative) mg/dL Urine Blood (Negative) Urine Nitrite (Negative) Ur Leukocyte Esterase (Negative) Influenza Type A (PCR) NEGATIVE (Negative) Influenza Type B (PCR) NEGATIVE (Negative) RSV RNA Qual (PCR) NEGATIVE (Negative) SARS-CoV-2 RNA (RT-PCR) NEGATIVE (Negative) 05/19/22 Range/Units 05:34 WBC (4.8-10.8) X10*3/uL RBC (4.60-5.80) X10*6/uL Hgb (14.0-18.0) g/dl Hct (42.0-52.0) % MCV (80.0-98.0) fL MCH (27.0-33.0) pg MCHC (31.0-36.0) g/dl RDW (11.0-16.0) % Plt Count (160-400) X10*3/uL MPV (9.4-12.4) fL Immature Gran % (Auto) (0.0-0.4) % Neut % (Auto) (45-73) % Lymph % (Auto) (20-40) % [place] % (Auto) (2-11) % Eos % (Auto) (0-4) % Baso % (Auto) (0-2) % Lymph # (Auto) (1.2-4.9) X10*3/uL [place] # (Auto) (0.1-1.2) X10*3/uL Eos # (Auto) (0.0-0.4) X10*3/uL Baso # (Auto) (0.0-0.2) X10*3/uL Abs Immat Gran (auto) (0.00-0.03) X10*3/uL Absolute Neuts (auto) (2.0-8.3) x10*3/uL Absolute Nucleated RBC (0.0-0.012) X10*3/uL Nucleated RBC % (auto) (0.0-0.2) /100WBC Sodium (135-145) mmol/L Potassium (3.3-5.1) mmol/L Chloride (96-108) mmol/L Carbon Dioxide (22-29) mmol/L Anion Gap (12-20) BUN (9-16) mg/dL Creatinine (0.5-1.4) mg/dL Estim Creat Clear Calc Estimated GFR Random Glucose (60-115) mg/dL Calcium (8.4-10.2) mg/dL Total Bilirubin (0.0-1.0) mg/dL AST (5-37) U/L ALT (0-40) U/L Alkaline Phosphatase (39-117) U/L Total Protein (6.5-8.0) g/dL Albumin (3.5-5.0) g/dL Lipase (8-78) U/L Urine Color Yellow Urine Appearance Clear Urine pH 6.0 (5.0-9.0) Ur Specific [place] <= 1.005 (1.005-1.025) Urine Protein Negative (Neg-Trace) mg/dL Urine Glucose (UA) Negative (Negative) mg/dL Urine Ketones Negative (Negative) mg/dL Urine Blood Negative (Negative) Urine Nitrite Negative (Negative) Ur Leukocyte Esterase Negative (Negative) Influenza Type A (PCR) (Negative) Influenza Type B (PCR) (Negative) RSV RNA Qual (PCR) (Negative) SARS-CoV-2 RNA (RT-PCR) (Negative) Medications Administered Discontinued Medications Generic Name Dose Route Start Last Admin Trade Name Freq PRN Reason Stop Dose Admin Dicyclomine HCl 20 mg 05/19/22 05:25 05/19/22 05:32 Dicyclomine Hcl 10 Mg Capsule PO 05/19/22 05:26 20 mg ONCE ONE Administration Ondansetron HCl 4 mg 05/19/22 05:25 05/19/22 05:32 Ondansetron Odt 4 Mg Tab.Rapdis TRANSLINGU 05/19/22 05:26 4 mg ONCE ONE Administration Discharge Plan Discharge Clinical Impression: Gastroenteritis Patient Disposition: Home, Self-Care Instructions: Gastroenteritis (ED) Additional Instructions: Drink plenty of fluid Med for nausea and diarrhea as prescribed Follow with PCP if not better Prescriptions: New ondansetron 4 mg tablet,disintegrating 4 mg PO Q6-8H PRN (Reason: nausea and vomiting) Qty: 10 0RF No Action prazosin 1 mg capsule 1 mg PO BEDTIME hydroxyzine HCl 50 mg tablet 50 mg PO Q6H PRN (Reason: anxiety) haloperidol 10 mg tablet 10 mg PO BEDTIME lithium carbonate 600 mg capsule 600 mg PO BID Interventions: ED Discharge Assessment Last Done: 05/19/22 07:09 Discharge Date/Time: 05/19/22 07:10
[2022-05-19 05:17] LABS: Influenza A PCR NEGATIVE (Negative); Influenza B PCR NEGATIVE (Negative); Resp Syncy Virus RNA Qual PCR NEGATIVE (Negative); SARS COV2 PCR INHOUSE NEGATIVE (Negative)
[2022-05-19] MEDS: Ondansetron ODT 4 MG TAB.RAPDIS TRANSLINGU (05:32)
[2022-05-19] MEDS: Dicyclomine HCl 10 MG CAPSULE 20 MG PO (05:32)
[2022-05-19 05:40] LABS: Lipase 13 U/L (8-78)
[2022-05-19 05:41] LABS: Appearance Urine Clear; Color Urine Yellow; Glucose Urine UA Negative (Negative); Leukocyte Esterase Urine Negative (Negative); Nitrite Urine Negative (Negative); Specific Gravity - Urine <= 1.005 (1.005-1.025); Urine Blood Negative (Negative); Urine Ketones Negative (Negative); Urine Protein Negative (Neg-Trace)
[2022-05-19 05:52] VITALS: BP 93/44; PULSE 56; RESP 15; TEMP 36.8; O2SAT 97
--- NOTE | 2022-05-19 06:43 | PC.NURSE ---
Pt given saltines and kathie deshawn for PO challenge. Pt stated that she ate saltines and immediately threw up in the bathroom. Pt then drank kathie deshawn with this RN present in the room and proceeded to lay down in bed and start to fall asleep.
[2022-05-19 07:04] VITALS: BP 103/55; PULSE 61; RESP 16; TEMP 36.7; O2SAT 95
== END 2022-05-19 07:10 | disposition home or self-care (01) ==
PROVIDERS: Emergency Provider Internal Medicine
DX: K52.9 Noninfective gastroenteritis and colitis, unspecified (principal); R11.2 Nausea with vomiting, unspecified; Z20.822 Contact with and (suspected) exposure to COVID-19; Z20.828 Contact with and (suspected) exposure to other viral communicable diseases; F41.9 Anxiety disorder, unspecified; Z79.899 Other long term (current) drug therapy
CPT/HCPCS: 0241U; 36415; 80053; 81003; 83690; 85025; 99283

== ENCOUNTER 2022-05-20 01:29 | Emergency (ER) | payer MEDICAID, SELFPAY ==
[2022-05-20 01:34] VITALS: BP 124/70; PULSE 82; RESP 20; TEMP 36.6; O2SAT 98; BMI 23.0
[2022-05-20 02:18] LABS: Hematocrit 41.1 % (42.0-52.0); Hemoglobin 14.7 g/dl (14.0-18.0); Mean Corpuscular HGB Conc 35.8 g/dl (31.0-36.0); Mean Corpuscular Hemoglobin 30.7 pg (27.0-33.0); Mean Corpuscular Volume 85.8 fL (80.0-98.0); Mean Platelet Volume 9.8 fL (9.4-12.4); Platelet Count 252 X10*3/uL (160-400); Red Blood Count 4.79 X10*6/uL (4.60-5.80); White Blood Count 11.3 X10*3/uL (4.8-10.8)
[2022-05-20 02:23] LABS: Appearance Urine Clear; Color Urine Yellow; Glucose Urine UA Negative (Negative); Leukocyte Esterase Urine Negative (Negative); Nitrite Urine Negative (Negative); Specific Gravity - Urine 1.025 (1.005-1.025); Urine Blood Negative (Negative); Urine Ketones Trace mg/dL (Negative); Urine Protein Negative (Neg-Trace)
[2022-05-20 02:26] LABS: Bacteria Urine None Seen (None Seen); Hyaline Casts Urine 0-2 /LPF (0-2); RBC Urine 0-2 /HPF (0-2); Squamous Epithelial Cell Urine 0-2 /HPF (0-2); WBC Urine 0-5 /HPF (0-5)
[2022-05-20 02:30] LABS: Amphetamine Screen Urine Not Detected (Not Detect); Barbiturates, Urine Not Detected (Not Detect); Benzodiazepines Screen Urine Not Detected (Not Detect); Cannabinoid Screen Urine Not Detected (Not Detect); Cocaine Screen Urine POSITIVE (Not Detect); Fentanyl, urine Not Detected (Not Detect); Opiate Screen Urine Not Detected (Not Detect); Phencyclidine Screen Urine Not Detected (Not Detect)
[2022-05-20 02:35] LABS: Alanine Aminotransferase 19 U/L (0-40); Albumin Level 3.8 g/dL (3.5-5.0); Alkaline Phosphatase 66 U/L (39-117); Anion Gap 13 (12-20); Aspartate Amino Transferase 30 U/L (5-37); Bilirubin Total 1.1 mg/dL (0.0-1.0); Blood Urea Nitrogen 20 mg/dL (9-16); Calcium 8.9 mg/dL (8.4-10.2); Carbon Dioxide 24 mmol/L (22-29); Chloride 110 mmol/L (96-108); Creatinine Clr Calc Pharmacy 100.7; Estimated Glomerular Filt Rate > 60; Glucose Random 133 mg/dL (60-115); Potassium 3.4 mmol/L (3.3-5.1); Sodium 144 mmol/L (135-145); Total Protein 6.3 g/dL (6.5-8.0)
[2022-05-20 02:46] LABS: COVID-19 Test Negative (Negative); IDNOW Serial# 6674DD1D
--- NOTE | 2022-05-20 06:13 | ED_ITS ---
HPI - Psych General Chief Complaint: Psychiatric Symptoms Stated Complaint: SI Time Seen by Provider: 05/20/22 04:14 Source: patient Mode of arrival: ambulatory Limitations: no limitations History of Present Illness HPI Narrative: Patient 47 years old transgender with past medical history of bipolar disorder, depression, anxiety was seen here yesterday for nausea vomiting now comes back as feels suicidal with a plan to overdose on her medications//cut her wris patient does have history of same in the past and been to our ER multiple times Related Data Home Medications Medication Instructions Recorded Confirmed estradiol cypionate 5 mg/mL 1 ml IM QWEEK 05/20/22 05/20/22 intramuscular oil (Depo-Estradiol) Allergies Allergy/AdvReac Type Severity Reaction Status Date / Time nicotine [From NICODERM CQ] Allergy Mild SHORTNESS Verified 02/17/22 00:45 OF BREATH ketchup [KETCHUP] Allergy Unknown RASH Verified 02/17/22 00:45 onion [ONION] Allergy Unknown RASH Verified 02/17/22 00:45 tomato [TOMATO] Allergy Unknown RASH Verified 02/17/22 00:45 Review of Systems Review of Systems: Yes all other systems are reviewed and are negative [facility] Past Medical History Medical History Bipolar 1 disorder Personality disorder Transgender Social History Social History Alcohol intake: current Alcohol intake frequency: 0-2 drinks per day Alcohol type: hard liquor Patient Tobacco Use Status: Never used Tobacco Substance Use Type: Crack/Cocaine Advance Directives: No Physical Exam Vital Signs: Vital Signs: Last Vital Signs Temp 98 F 05/20/22 01:34 Pulse 82 05/20/22 01:34 Resp 20 05/20/22 01:34 BP 124/70 05/20/22 01:34 Pulse Ox 98 05/20/22 01:34 O2 Del Method 05/20/22 01:34 BMI result Body Mass Index 23.0 Appearance: Alert. Oriented X3. No acute distress. Eyes: PERRLA, No Nystagmus ENT: Pharynx normal. Oral Mucosa moist Neck: Normal inspection. Neck supple. CVS: Normal heart rate and rhythm. Pulses normal. Respiratory: No respiratory distress. Equal air entry bilateral, no wheezing/rales/rhonchi Abdomen: Soft and nontender. Bowel sounds are present, no mass palpable, no CVA tenderness Skin: Skin warm and dry. Normal skin color. Normal skin turgor. Extremities: No lower extremity edema. No calf tenderness Neuro: Oriented X 3. No motor deficit. No sensory deficit.No cerebellar signs , cranial nerves II-XII intact psych; look depressed feels suicidal with plan to cut his wrist no hallucinations/delusions Medical Decision Making Medical Decision Making [facility] Narrative: Patient with bipolar disorder with depression feels suicidal will get care team involved for evaluation Lab Data [facility] Lab Attestation statement: I reviewed the patient's lab results. 05/20/22 02:10 05/20/22 02:10 Labs: Lab Results 05/20/22 05/20/22 05/20/22 Range/Units 02:10 02:10 02:10 WBC 11.3 H (4.8-10.8) X10*3/uL RBC 4.79 (4.60-5.80) X10*6/uL Hgb 14.7 (14.0-18.0) g/dl Hct 41.1 L (42.0-52.0) % MCV 85.8 (80.0-98.0) fL MCH 30.7 (27.0-33.0) pg MCHC 35.8 (31.0-36.0) g/dl RDW 12.0 (11.0-16.0) % Plt Count 252 (160-400) X10*3/uL MPV 9.8 (9.4-12.4) fL Absolute Nucleated RBC 0.000 (0.0-0.012) X10*3/uL Nucleated RBC % (auto) 0.0 (0.0-0.2) /100WBC Sodium 144 (135-145) mmol/L Potassium 3.4 (3.3-5.1) mmol/L Chloride 110 H (96-108) mmol/L Carbon Dioxide 24 (22-29) mmol/L Anion Gap 13 (12-20) BUN 20 H (9-16) mg/dL Creatinine 0.97 (0.5-1.4) mg/dL Estim Creat Clear Calc 100.7 Estimated GFR > 60 Random Glucose 133 H (60-115) mg/dL Calcium 8.9 (8.4-10.2) mg/dL Total Bilirubin 1.1 H (0.0-1.0) mg/dL AST 30 (5-37) U/L ALT 19 (0-40) U/L Alkaline Phosphatase 66 (39-117) U/L Total Protein 6.3 L (6.5-8.0) g/dL Albumin 3.8 (3.5-5.0) g/dL Urine Color Urine Appearance Urine pH (5.0-9.0) Ur Specific [place] (1.005-1.025) Urine Protein (Neg-Trace) mg/dL Urine Glucose (UA) (Negative) mg/dL Urine Ketones (Negative) mg/dL Urine Blood (Negative) Urine Nitrite (Negative) Ur Leukocyte Esterase (Negative) Urine RBC (0-2) /HPF Urine WBC (0-5) /HPF Ur Squamous Epith Cells (0-2) /HPF Urine Bacteria (None Seen) Hyaline Casts (0-2) /LPF Urine Opiates Screen (Not Detect) Urine Fentanyl Screen (Not Detect) Ur Barbiturates Screen (Not Detect) Ur Phencyclidine Scrn (Not Detect) Ur Amphetamines Screen (Not Detect) U Benzodiazepines Scrn (Not Detect) Urine Cocaine Screen (Not Detect) U Marijuana (THC) Screen (Not Detect) COVID-19 ([place]) Negative (Negative) COVID-19 Clin Com See Note 05/20/22 05/20/22 Range/Units 02:10 02:10 WBC (4.8-10.8) X10*3/uL RBC (4.60-5.80) X10*6/uL Hgb (14.0-18.0) g/dl Hct (42.0-52.0) % MCV (80.0-98.0) fL MCH (27.0-33.0) pg MCHC (31.0-36.0) g/dl RDW (11.0-16.0) % Plt Count (160-400) X10*3/uL MPV (9.4-12.4) fL Absolute Nucleated RBC (0.0-0.012) X10*3/uL Nucleated RBC % (auto) (0.0-0.2) /100WBC Sodium (135-145) mmol/L Potassium (3.3-5.1) mmol/L Chloride (96-108) mmol/L Carbon Dioxide (22-29) mmol/L Anion Gap (12-20) BUN (9-16) mg/dL Creatinine (0.5-1.4) mg/dL Estim Creat Clear Calc Estimated GFR Random Glucose (60-115) mg/dL Calcium (8.4-10.2) mg/dL Total Bilirubin (0.0-1.0) mg/dL AST (5-37) U/L ALT (0-40) U/L Alkaline Phosphatase (39-117) U/L Total Protein (6.5-8.0) g/dL Albumin (3.5-5.0) g/dL Urine Color Yellow Urine Appearance Clear Urine pH 6.0 (5.0-9.0) Ur Specific [place] 1.025 (1.005-1.025) Urine Protein Negative (Neg-Trace) mg/dL Urine Glucose (UA) Negative (Negative) mg/dL Urine Ketones Trace (Negative) mg/dL Urine Blood Negative (Negative) Urine Nitrite Negative (Negative) Ur Leukocyte Esterase Negative (Negative) Urine RBC 0-2 (0-2) /HPF Urine WBC 0-5 (0-5) /HPF Ur Squamous Epith Cells 0-2 (0-2) /HPF Urine Bacteria None Seen (None Seen) Hyaline Casts 0-2 (0-2) /LPF Urine Opiates Screen Not Detected (Not Detect) Urine Fentanyl Screen Not Detected (Not Detect) Ur Barbiturates Screen Not Detected (Not Detect) Ur Phencyclidine Scrn Not Detected (Not Detect) Ur Amphetamines Screen Not Detected (Not Detect) U Benzodiazepines Scrn Not Detected (Not Detect) Urine Cocaine Screen POSITIVE H (Not Detect) U Marijuana (THC) Screen Not Detected (Not Detect) COVID-19 ([place]) (Negative) COVID-19 Clin Com Discharge Plan Discharge Clinical Impression: Suicidal ideation, Bipolar disorder Patient Disposition: Still a Patient Prescriptions: No Action Depo-Estradiol 5 mg/mL oil 1 ml IM QWEEK Interventions: [place]-Suicide Risk Severity Scale Last Done: 05/20/22 05:11
--- NOTE | 2022-05-20 06:33 | PC.NURSE ---
Patient slept through the night, no distress observed/reported, behavior non concerning, pending care team assessment, med rec completed/pending provider's approval, VSS, will continue to monitor.
--- NOTE | 2022-05-20 12:03 | MHC.CARE ---
CARE team attempted to engage pt in assessment re: pt's endorsement of suicidal ideation with a plan to overdose with medications. Pt refused to speak with this typewriter ribbon winder and stated that she has been discriminated against by the CARE team and that she will only speak with a psychiatrist.
[2022-05-21 01:09] VITALS: BP 99/69; PULSE 55; RESP 16; TEMP 36.7; O2SAT 98
--- NOTE | 2022-05-21 03:55 | PC.NURSE ---
Patient slept through whole evening and night, no distress observed/reported, up out of room x 2 for bathroom use and back, snaked and refreshed, behavior non concerning, patient is currently not on any psychiatric medication, patient was attempted by care team for evaluation but not compliant, patient will be reaassed by care team in the morning, VSS, will continue to monitor.
--- NOTE | 2022-05-21 10:34 | MHC.CARE ---
Attempted to meet with patient, patient reports that due to a current law suit the patient has against the CARE team/ Hospital she will not be seen by the CARE team, only psychiatry. When explained that the only way to see psychiatry is through an initial CARE team assessment, patient requested a d/c home to [facility], specifically [facility]. Patient agrees to go to closest emergency department should she become suicidal. Offered an assessment prior to obtaining a lyft, however patient declined.
== END 2022-05-21 10:39 | disposition home or self-care (01) ==
PROVIDERS: Emergency Provider Internal Medicine; PCP Internal Medicine
DX: R45.851 Suicidal ideations (principal); F31.9 Bipolar disorder, unspecified; Z20.822 Contact with and (suspected) exposure to COVID-19; F14.10 Cocaine abuse, uncomplicated; F64.0 Transsexualism; F60.9 Personality disorder, unspecified; F41.9 Anxiety disorder, unspecified; Z79.899 Other long term (current) drug therapy
CPT/HCPCS: 36415; 80053; 80307; 81001; 85027; 87635; 99284

== ENCOUNTER 2022-06-01 21:43 | Emergency (ER) | payer OTHER, MEDICAID, SELFPAY ==
[2022-06-01 21:47] VITALS: BP 122/72; PULSE 95; RESP 16; TEMP 36.5; O2SAT 96; BMI 25.1
--- NOTE | 2022-06-01 22:10 | ED_ITS ---
HPI - Psych General Chief Complaint: Psychiatric Symptoms Stated Complaint: SI/ Crisis Time Seen by Provider: 06/01/22 22:08 Source: patient Mode of arrival: ambulatory Limitations: no limitations History of Present Illness HPI Narrative: 47-year-old male transitioning to female presents for suicidal ideation. MD complaint: suicidal ideation and substance abuse Onset (ago): year(s) Duration: constant History of same: Yes Relieving factors: none Exacerbating factors: drug use Context: recent drug abuse Associated psychiatric symptoms: suicidal ideation Associated symptoms: denies other symptoms Treatments prior to arrival: none If self harm: admits thoughts of self harm Related Data Home Medications Medication Instructions Recorded Confirmed estradiol cypionate 5 mg/mL 1 ml IM QWEEK 05/20/22 06/01/22 intramuscular oil (Depo-Estradiol) haloperidol 10 mg tablet 1 tab PO BEDTIME 06/01/22 06/01/22 prazosin 1 mg capsule 1 cap PO BEDTIME 06/01/22 06/01/22 Allergies Allergy/AdvReac Type Severity Reaction Status Date / Time nicotine [From NICODERM CQ] Allergy Mild SHORTNESS Verified 02/17/22 00:45 OF BREATH ketchup [KETCHUP] Allergy Unknown RASH Verified 02/17/22 00:45 onion [ONION] Allergy Unknown RASH Verified 02/17/22 00:45 tomato [TOMATO] Allergy Unknown RASH Verified 02/17/22 00:45 Review of Systems Review of Systems: Constitutional: No Fever, No Chills Cardiovascular: No Chest Pain, No SOB Respiratory: No Cough, No Sputum Gastrointestinal: No Nausea, No Vomiting, No Diarrhea, No abdominal Pain Genitourinary: No Dysuria, No Hematuria Musculoskeletal: No joint pain, No Myalgias, No Joint Swelling Skin: No Skin Lesions, No rash Neuro: No Weakness, No Numbness, No Dizziness, No Headache Psych: Positive Anxiety, also Depression, positive SI, positive substance abuse Yes all other systems are reviewed and are negative PMFSH Past Medical History Attestation statement: The following information was validated with the patient. Source: old records reviewed Medical History Bipolar 1 disorder Personality disorder Transgender Social History Social History Alcohol intake: current Alcohol intake frequency: 0-2 drinks per day Alcohol type: hard liquor Patient Tobacco Use Status: Never used Tobacco Substance Use Type: Crack/Cocaine Advance Directives: No Advance Directives Information Provided: Yes Healthcare Proxy: No Guardian: No Physical Exam Vital Signs: Vital Signs: Last Vital Signs Temp 97.7 F 06/01/22 21:47 Pulse 95 06/01/22 21:47 Resp 16 06/01/22 21:47 BP 122/72 06/01/22 21:47 Pulse Ox 96 06/01/22 21:47 O2 Del Method 06/01/22 21:47 BMI result Body Mass Index 25.1 Appearance: Alert. Oriented X3. Moderate emotional distress. Eyes: Pupils equal, round and reactive to light. Neck: Normal inspection. Neck supple. CVS: Normal heart rate and rhythm. Respiratory: No respiratory distress. Skin: Skin warm and dry. Normal skin color. Extremities: Gait balance and coordinated Neuro: No motor deficit. No sensory deficit. Cranial nerves 2-12 intact Course Course Course Narrative: 47-year-old male transitioning to female presents with suicidal ideation and plan. Patient presents to this facility on a regular basis, is an avid cocaine abuser. Patient is not interested in detox would like to placed at the [facility]. Denies medical complaints at this time. Labs pending. BUN elevated, consistent with prior values. Patient has been given plenty of fluids by cook helper juice. Tested positive for cocaine. Medically cleared. 23:22 plan of care is to discharge home in the morning. Care team consult complete. Medications Administered Generic Name Dose Route Start Last Admin Trade Name Freq PRN Reason Stop Dose Admin Haloperidol 10 mg 06/01/22 22:15 06/01/22 23:24 Haloperidol 5 Mg Tablet PO 10 mg BEDTIME OWEN Administration Prazosin HCl 1 mg 06/01/22 22:15 06/01/22 23:25 Prazosin Hcl 1 Mg Capsule PO 1 mg BEDTIME OWEN Administration Protocol Medical Decision Making Differential Diagnosis Differential Diagnoses: The differential diagnosis associated with the presentation includes SI, substance abuse Consult Healthcare Provider Management of the patient was discussed with: Behavioral Health Provider Lab Data [facility] Lab Attestation statement: I reviewed the patient's lab results. 06/01/22 22:30 06/01/22 22:30 Labs: Lab Results 06/01/22 06/01/22 06/01/22 Range/Units 22:12 22:12 22:30 WBC 12.1 H (4.8-10.8) X10*3/uL RBC 5.33 (4.60-5.80) X10*6/uL Hgb 16.2 (14.0-18.0) g/dl Hct 47.2 (42.0-52.0) % MCV 88.6 (80.0-98.0) fL MCH 30.4 (27.0-33.0) pg MCHC 34.3 (31.0-36.0) g/dl RDW 12.2 (11.0-16.0) % Plt Count 284 (160-400) X10*3/uL MPV 10.2 (9.4-12.4) fL Immature Gran % (Auto) 0.3 (0.0-0.4) % Neut % (Auto) 60.6 (45-73) % Lymph % (Auto) 27.9 (20-40) % [place] % (Auto) 8.5 (2-11) % Eos % (Auto) 1.9 (0-4) % Baso % (Auto) 0.8 (0-2) % Lymph # (Auto) 3.4 (1.2-4.9) X10*3/uL [place] # (Auto) 1.0 (0.1-1.2) X10*3/uL Eos # (Auto) 0.2 (0.0-0.4) X10*3/uL Baso # (Auto) 0.1 (0.0-0.2) X10*3/uL Abs Immat Gran (auto) 0.04 H (0.00-0.03) X10*3/uL Absolute Neuts (auto) 7.4 (2.0-8.3) x10*3/uL Absolute Nucleated RBC 0.000 (0.0-0.012) X10*3/uL Nucleated RBC % (auto) 0.0 (0.0-0.2) /100WBC Sodium (135-145) mmol/L Potassium (3.3-5.1) mmol/L Chloride (96-108) mmol/L Carbon Dioxide (22-29) mmol/L Anion Gap (12-20) BUN (9-16) mg/dL Creatinine (0.5-1.4) mg/dL Estim Creat Clear Calc Estimated GFR Random Glucose (60-115) mg/dL Calcium (8.4-10.2) mg/dL Total Bilirubin (0.0-1.0) mg/dL AST (5-37) U/L ALT (0-40) U/L Alkaline Phosphatase (39-117) U/L Total Protein (6.5-8.0) g/dL Albumin (3.5-5.0) g/dL Urine Opiates Screen Not Detected (Not Detect) Urine Fentanyl Screen Not Detected (Not Detect) Ur Barbiturates Screen Not Detected (Not Detect) Ur Phencyclidine Scrn Not Detected (Not Detect) Ur Amphetamines Screen Not Detected (Not Detect) U Benzodiazepines Scrn Not Detected (Not Detect) Urine Cocaine Screen POSITIVE H (Not Detect) U Marijuana (THC) Screen Not Detected (Not Detect) Ethyl Alcohol mg/dL COVID-19 ([place]) Negative (Negative) COVID-19 Clin Com See Note 06/01/22 06/01/22 Range/Units 22:30 22:30 WBC (4.8-10.8) X10*3/uL RBC (4.60-5.80) X10*6/uL Hgb (14.0-18.0) g/dl Hct (42.0-52.0) % MCV (80.0-98.0) fL MCH (27.0-33.0) pg MCHC (31.0-36.0) g/dl RDW (11.0-16.0) % Plt Count (160-400) X10*3/uL MPV (9.4-12.4) fL Immature Gran % (Auto) (0.0-0.4) % Neut % (Auto) (45-73) % Lymph % (Auto) (20-40) % [place] % (Auto) (2-11) % Eos % (Auto) (0-4) % Baso % (Auto) (0-2) % Lymph # (Auto) (1.2-4.9) X10*3/uL [place] # (Auto) (0.1-1.2) X10*3/uL Eos # (Auto) (0.0-0.4) X10*3/uL Baso # (Auto) (0.0-0.2) X10*3/uL Abs Immat Gran (auto) (0.00-0.03) X10*3/uL Absolute Neuts (auto) (2.0-8.3) x10*3/uL Absolute Nucleated RBC (0.0-0.012) X10*3/uL Nucleated RBC % (auto) (0.0-0.2) /100WBC Sodium 139 (135-145) mmol/L Potassium 4.4 D (3.3-5.1) mmol/L Chloride 100 (96-108) mmol/L Carbon Dioxide 29 (22-29) mmol/L Anion Gap 14 (12-20) BUN 23 H (9-16) mg/dL Creatinine 0.86 (0.5-1.4) mg/dL Estim Creat Clear Calc 114.3 Estimated GFR > 60 Random Glucose 108 (60-115) mg/dL Calcium 9.4 (8.4-10.2) mg/dL Total Bilirubin 1.2 H (0.0-1.0) mg/dL AST 22 (5-37) U/L ALT 20 (0-40) U/L Alkaline Phosphatase 82 (39-117) U/L Total Protein 7.4 (6.5-8.0) g/dL Albumin 4.5 (3.5-5.0) g/dL Urine Opiates Screen (Not Detect) Urine Fentanyl Screen (Not Detect) Ur Barbiturates Screen (Not Detect) Ur Phencyclidine Scrn (Not Detect) Ur Amphetamines Screen (Not Detect) U Benzodiazepines Scrn (Not Detect) Urine Cocaine Screen (Not Detect) U Marijuana (THC) Screen (Not Detect) Ethyl Alcohol < 10 mg/dL COVID-19 ([place]) (Negative) COVID-19 Clin Com External Record Review External record reviewed: Inpatient record, Outpatient record and Prior outpatient labs Discharge Plan Discharge Clinical Impression: Bipolar disorder, Depression, Cocaine abuse Patient Disposition: Home, Self-Care Instructions: Cocaine Abuse (ED), Depression (ED), Bipolar Disorder (ED) Additional Instructions: Consider detox. Follow-up with outpatient psychiatry as scheduled. Thank you for choosing this emergency department for evaluation. Please follow-up with primary care physician as needed. Return to the emergency department for any new, concerning, or worsening symptoms. Prescriptions: No Action Depo-Estradiol 5 mg/mL oil 1 ml IM QWEEK prazosin 1 mg capsule 1 cap PO BEDTIME haloperidol 10 mg tablet 1 tab PO BEDTIME Interventions: [place]-Suicide Risk Severity Scale Last Done: 06/01/22 21:53
[2022-06-01 22:36] LABS: MANUAL DIFF FLAG NO
[2022-06-01 22:40] LABS: Basophils Absolute Auto 0.1 X10*3/uL (0.0-0.2); Basophils Percent Auto 0.8 % (0-2); Eosinophils Absolute Auto 0.2 X10*3/uL (0.0-0.4); Eosinophils Percent Auto 1.9 % (0-4); Hematocrit 47.2 % (42.0-52.0); Hemoglobin 16.2 g/dl (14.0-18.0); Imm Gran Abs Auto 0.04 X10*3/uL (0.00-0.03); Imm Gran Pct Auto 0.3 % (0.0-0.4); Lymphocytes Absolute Auto 3.4 X10*3/uL (1.2-4.9); Lymphocytes Percent Auto 27.9 % (20-40); Mean Corpuscular HGB Conc 34.3 g/dl (31.0-36.0); Mean Corpuscular Hemoglobin 30.4 pg (27.0-33.0); Mean Corpuscular Volume 88.6 fL (80.0-98.0); Mean Platelet Volume 10.2 fL (9.4-12.4); Monocytes Percent Auto 8.5 % (2-11); Neutrophils Absolute Auto 7.4 x10*3/uL (2.0-8.3); Neutrophils Percent Auto 60.6 % (45-73); Platelet Count 284 X10*3/uL (160-400); Red Blood Count 5.33 X10*6/uL (4.60-5.80); Red Cell Distribution Width 12.2 % (11.0-16.0); White Blood Count 12.1 X10*3/uL (4.8-10.8)
[2022-06-01 22:50] LABS: Amphetamine Screen Urine Not Detected (Not Detect); Barbiturates, Urine Not Detected (Not Detect); Benzodiazepines Screen Urine Not Detected (Not Detect); Cannabinoid Screen Urine Not Detected (Not Detect); Cocaine Screen Urine POSITIVE (Not Detect); Fentanyl, urine Not Detected (Not Detect); Opiate Screen Urine Not Detected (Not Detect); Phencyclidine Screen Urine Not Detected (Not Detect)
[2022-06-01 22:55] LABS: COVID-19 Test Negative (Negative); IDNOW Serial# 6674DD1D
[2022-06-01 22:56] LABS: Alanine Aminotransferase 20 U/L (0-40); Albumin Level 4.5 g/dL (3.5-5.0); Alkaline Phosphatase 82 U/L (39-117); Anion Gap 14 (12-20); Aspartate Amino Transferase 22 U/L (5-37); Bilirubin Total 1.2 mg/dL (0.0-1.0); Blood Urea Nitrogen 23 mg/dL (9-16); Calcium 9.4 mg/dL (8.4-10.2); Carbon Dioxide 29 mmol/L (22-29); Chloride 100 mmol/L (96-108); Creatinine Clr Calc Pharmacy 114.3; Estimated Glomerular Filt Rate > 60; Glucose Random 108 mg/dL (60-115); Potassium 4.4 mmol/L (3.3-5.1); Sodium 139 mmol/L (135-145); Total Protein 7.4 g/dL (6.5-8.0)
[2022-06-01 23:01] LABS: Ethanol < 10 mg/dL
[2022-06-01] MEDS: HaloperidoL 5 MG TABLET 10 MG PO (23:24)
[2022-06-01] MEDS: Prazosin HCL 1 MG CAPSULE PO (23:25)
[2022-06-02 06:22] VITALS: BP 114/56; PULSE 51; RESP 16; TEMP 36.7; O2SAT 98
--- NOTE | 2022-06-02 06:23 | PC.NURSE ---
Patient slept through the night, no distress observed/reported, behavior non concerning, medication compliant, VSS, disposition per care team discharge to respite, patient has bed at [facility] respite in [place], discharge paper up and ready, will continue to monitor.
== END 2022-06-02 11:11 | disposition home or self-care (01) ==
PROVIDERS: Emergency Provider Emergency Medicine; PCP Internal Medicine
DX: F33.1 Major depressive disorder, recurrent, moderate (principal); R45.851 Suicidal ideations; F14.10 Cocaine abuse, uncomplicated; Z20.822 Contact with and (suspected) exposure to COVID-19; Z20.828 Contact with and (suspected) exposure to other viral communicable diseases; Z79.899 Other long term (current) drug therapy
CPT/HCPCS: 36415; 80053; 80307; 82077; 85025; 87635; 99285; S9485

== ENCOUNTER 2022-10-01 03:46 | Emergency (ER) | payer MEDICAID, SELFPAY ==
[2022-10-01 03:47] VITALS: BP 115/58; PULSE 57; RESP 18; TEMP 36.7; O2SAT 96; BMI 25.2
[2022-10-01 04:38] LABS: MANUAL DIFF FLAG NO
[2022-10-01 04:39] LABS: Basophils Absolute Auto 0.1 X10*3/uL (0.0-0.2); Basophils Percent Auto 0.5 % (0-2); Eosinophils Absolute Auto 0.1 X10*3/uL (0.0-0.4); Eosinophils Percent Auto 1.1 % (0-4); Hematocrit 42.5 % (42.0-52.0); Hemoglobin 14.8 g/dl (14.0-18.0); Imm Gran Abs Auto 0.06 X10*3/uL (0.00-0.03); Imm Gran Pct Auto 0.5 % (0.0-0.4); Lymphocytes Absolute Auto 3.1 X10*3/uL (1.2-4.9); Lymphocytes Percent Auto 23.6 % (20-40); Mean Corpuscular HGB Conc 34.8 g/dl (31.0-36.0); Mean Corpuscular Hemoglobin 30.5 pg (27.0-33.0); Mean Corpuscular Volume 87.6 fL (80.0-98.0); Mean Platelet Volume 10.5 fL (9.4-12.4); Monocytes Absolute Auto 1.2 X10*3/uL (0.1-1.2); Neutrophils Absolute Auto 8.5 x10*3/uL (2.0-8.3); Neutrophils Percent Auto 65.3 % (45-73); Platelet Count 233 X10*3/uL (160-400); Red Blood Count 4.85 X10*6/uL (4.60-5.80); Red Cell Distribution Width 12.1 % (11.0-16.0)
[2022-10-01 04:48] LABS: Lithium 0.15 mmol/L (0.60-1.20)
--- NOTE | 2022-10-01 04:52 | ED.PSYCH ---
HPI - Psych General Chief Complaint: Psychiatric Symptoms Stated Complaint: SI Time Seen by Provider: 10/01/22 04:47 Source: patient Limitations: no limitations History of Present Illness HPI Narrative: 47-year-old male to female for presents with suicidal ideation. There is no plan. Symptoms are moderate to severe. There is no clear relieving or exacerbating features. Patient has history of depression anxiety. Does have a history of suicide attempt. He reports taking his medications. He does smoke cigarettes and drink but he denies any drug abuse. Patient also complains of chronic dental pain Related Data Home Medications Medication Instructions Recorded Confirmed estradiol cypionate 5 mg/mL 1 ml IM QWEEK 05/20/22 10/01/22 intramuscular oil (Depo-Estradiol) haloperidol 10 mg tablet 1 tab PO BEDTIME 06/01/22 10/01/22 prazosin 1 mg capsule 1 cap PO BEDTIME 06/01/22 10/01/22 lithium carbonate 600 mg capsule 600 mg PO BID 10/01/22 10/01/22 spironolactone 50 mg tablet 50 mg PO BID 10/01/22 10/01/22 Allergies Allergy/AdvReac Type Severity Reaction Status Date / Time nicotine [[facility] Allergy Mild SHORTNESS Verified 02/17/22 00:45 OF BREATH ketchup [KETCHUP] Allergy Unknown RASH Verified 02/17/22 00:45 onion [ONION] Allergy Unknown RASH Verified 02/17/22 00:45 tomato [TOMATO] Allergy Unknown RASH Verified 02/17/22 00:45 Review of Systems Review of Systems: CONSTITUTIONAL: Denies weight loss, fever and chills. HEENT: Denies changes in vision and hearing. RESPIRATORY: Denies SOB and cough. CV: Denies palpitations no CP. GI: Denies abdominal pain, nausea, vomiting and diarrhea. : Denies dysuria and urinary frequency. MSK: Denies myalgia and joint pain. SKIN: Denies rash and pruritus. NEUROLOGICAL: Denies headache and syncope. PSYCHIATRIC: Denies recent changes in mood. Denies anxiety and depression. All other ROS are negative unless in HPI PMFSH Past Medical History Medical History Bipolar 1 disorder Personality disorder Transgender Social History Social History Alcohol intake: current Alcohol intake frequency: 0-2 drinks per day Alcohol type: hard liquor Patient Tobacco Use Status: Never used Tobacco Substance Use Type: Crack/Cocaine Advance Directives: No Advance Directives Information Provided: No Physical Exam Vital Signs: Vital Signs: Last Vital Signs Temp 98.0 F 10/01/22 03:47 Pulse 57 10/01/22 03:47 Resp 18 10/01/22 03:47 BP 115/58 L 10/01/22 03:47 Pulse Ox 96 10/01/22 03:47 O2 Del Method Room Air 10/01/22 03:47 BMI result Body Mass Index 25.2 GEN: Well developed, no acute distress, alert, oriented HEENT: Normocephalic, atraumatic, normal external ears, nose appears normal poor dentition, no evidence of gingival erythema, flexion with surfaces or obvious infection Eyes: Normal to appearance Neck: Supple, no lymphadenopathy Respiratory: Talks in complete sentences, no respiratory distress Extremities: No clubbing cyanosis or edema Neurologic: No focal neurologic deficits, cranial nerves 2-12 intact, gait normal Skin: No rash Course Course Course Narrative: 47-year-old male presents for psychiatric evaluation with suicidal ideation. There is no plan patient is medically cleared for evaluation. [place] level is therapeutic. Will place the patient in physician observation. Reevaluation(s) Reevaluation #1: Patient will be signed out to the oncoming provider at 7:00 a.m. this morning. Time: 06:15 Medications Administered Discontinued Medications Generic Name Dose Route Start Last Admin Trade Name Freq PRN Reason Stop Dose Admin Ibuprofen 800 mg 10/01/22 04:45 10/01/22 04:52 Ibuprofen 800 Mg Tablet PO 10/01/22 04:46 800 mg ONCE ONE Administration Medical Decision Making Medical Decision Making [facility] Narrative: 47-year-old male to female presents with suicidal ideation. Patient has history of depression anxiety with previous suicide attempt and psychiatric admissions. Patient offers no plan at this time. , cooperative. Patient will need to be medically cleared for psychiatric evaluation. In addition he is complaining of dental pain. She does have have poor dentition. There is no evidence of infection. Patient has a follow-up appoint with dentistry in 1-2 weeks. Will provide patient with ibuprofen for symptomatic relief. Differential diagnosis includes depression, anxiety, PTSD, mood disorder Differential Diagnosis Differential Diagnoses: The differential diagnosis associated with the presentation includes (See above) Admission/Observation Consideration of admission/observation: Escalation of care including admission/observation considered Consult Healthcare Provider Management of the patient was discussed with: Behavioral Health Provider Lab Data MDM Lab Attestation statement: I reviewed the patient's lab results. 10/01/22 04:29 10/01/22 04:29 Labs: Lab Results 10/01/22 10/01/22 10/01/22 Range/Units 04:29 04:29 04:29 WBC 13.0 H (4.8-10.8) X10*3/uL RBC 4.85 (4.60-5.80) X10*6/uL Hgb 14.8 (14.0-18.0) g/dl Hct 42.5 (42.0-52.0) % MCV 87.6 (80.0-98.0) fL MCH 30.5 (27.0-33.0) pg MCHC 34.8 (31.0-36.0) g/dl RDW 12.1 (11.0-16.0) % Plt Count 233 (160-400) X10*3/uL MPV 10.5 (9.4-12.4) fL Immature Gran % (Auto) 0.5 H (0.0-0.4) % Neut % (Auto) 65.3 (45-73) % Lymph % (Auto) 23.6 (20-40) % [place] % (Auto) 9.0 (2-11) % Eos % (Auto) 1.1 (0-4) % Baso % (Auto) 0.5 (0-2) % Lymph # (Auto) 3.1 (1.2-4.9) X10*3/uL [place] # (Auto) 1.2 (0.1-1.2) X10*3/uL Eos # (Auto) 0.1 (0.0-0.4) X10*3/uL Baso # (Auto) 0.1 (0.0-0.2) X10*3/uL Abs Immat Gran (auto) 0.06 H (0.00-0.03) X10*3/uL Absolute Neuts (auto) 8.5 H (2.0-8.3) x10*3/uL Absolute Nucleated RBC 0.000 (0.0-0.012) X10*3/uL Nucleated RBC % (auto) 0.0 (0.0-0.2) /100WBC Sodium 137 (135-145) mmol/L Potassium 3.9 (3.3-5.1) mmol/L Chloride 103 (96-108) mmol/L Carbon Dioxide 24 (22-29) mmol/L Anion Gap 14 (12-20) BUN 17 H (9-16) mg/dL Creatinine 0.70 (0.5-1.4) mg/dL Estim Creat Clear Calc 140.4 Estimated GFR > 60 Random Glucose 86 (60-115) mg/dL Calcium 9.6 (8.4-10.2) mg/dL Total Bilirubin 1.3 H (0.0-1.0) mg/dL AST 22 (5-37) U/L ALT 23 (0-40) U/L Alkaline Phosphatase 69 (39-117) U/L Total Protein 7.1 (6.5-8.0) g/dL Albumin 4.0 (3.5-5.0) g/dL Urine Color Urine Appearance Urine pH (5.0-9.0) Ur Specific [place] (1.005-1.025) Urine Protein (Neg-Trace) mg/dL Urine Glucose (UA) (Negative) mg/dL Urine Ketones (Negative) mg/dL Urine Blood (Negative) Urine Nitrite (Negative) Ur Leukocyte Esterase (Negative) Urine Opiates Screen (Not Detect) Urine Fentanyl Screen (Not Detect) Ur Barbiturates Screen (Not Detect) Ur Phencyclidine Scrn (Not Detect) Ur Amphetamines Screen (Not Detect) U Benzodiazepines Scrn (Not Detect) [place] 0.15 L (0.60-1.20) mmol/L Urine Cocaine Screen (Not Detect) U Marijuana (THC) Screen (Not Detect) Ethyl Alcohol < 10 mg/dL 10/01/22 10/01/22 Range/Units 05:46 05:47 WBC (4.8-10.8) X10*3/uL RBC (4.60-5.80) X10*6/uL Hgb (14.0-18.0) g/dl Hct (42.0-52.0) % MCV (80.0-98.0) fL MCH (27.0-33.0) pg MCHC (31.0-36.0) g/dl RDW (11.0-16.0) % Plt Count (160-400) X10*3/uL MPV (9.4-12.4) fL Immature Gran % (Auto) (0.0-0.4) % Neut % (Auto) (45-73) % Lymph % (Auto) (20-40) % [place] % (Auto) (2-11) % Eos % (Auto) (0-4) % Baso % (Auto) (0-2) % Lymph # (Auto) (1.2-4.9) X10*3/uL [place] # (Auto) (0.1-1.2) X10*3/uL Eos # (Auto) (0.0-0.4) X10*3/uL Baso # (Auto) (0.0-0.2) X10*3/uL Abs Immat Gran (auto) (0.00-0.03) X10*3/uL Absolute Neuts (auto) (2.0-8.3) x10*3/uL Absolute Nucleated RBC (0.0-0.012) X10*3/uL Nucleated RBC % (auto) (0.0-0.2) /100WBC Sodium (135-145) mmol/L Potassium (3.3-5.1) mmol/L Chloride (96-108) mmol/L Carbon Dioxide (22-29) mmol/L Anion Gap (12-20) BUN (9-16) mg/dL Creatinine (0.5-1.4) mg/dL Estim Creat Clear Calc Estimated GFR Random Glucose (60-115) mg/dL Calcium (8.4-10.2) mg/dL Total Bilirubin (0.0-1.0) mg/dL AST (5-37) U/L ALT (0-40) U/L Alkaline Phosphatase (39-117) U/L Total Protein (6.5-8.0) g/dL Albumin (3.5-5.0) g/dL Urine Color Yellow Urine Appearance Clear Urine pH 6.0 (5.0-9.0) Ur Specific [place] 1.010 (1.005-1.025) Urine Protein Negative (Neg-Trace) mg/dL Urine Glucose (UA) Negative (Negative) mg/dL Urine Ketones Negative (Negative) mg/dL Urine Blood Negative (Negative) Urine Nitrite Negative (Negative) Ur Leukocyte Esterase Negative (Negative) Urine Opiates Screen Not Detected (Not Detect) Urine Fentanyl Screen Not Detected (Not Detect) Ur Barbiturates Screen Not Detected (Not Detect) Ur Phencyclidine Scrn Not Detected (Not Detect) Ur Amphetamines Screen Not Detected (Not Detect) U Benzodiazepines Scrn Not Detected (Not Detect) [place] (0.60-1.20) mmol/L Urine Cocaine Screen POSITIVE H (Not Detect) U Marijuana (THC) Screen Not Detected (Not Detect) Ethyl Alcohol mg/dL External Record Review External record reviewed: Inpatient record (Psychiatry) Prescription Management I considered prescription management with: Pain Medication and Antibiotic Chronic Conditions Patient?s care impacted by: Other (Psychiatric ) Discharge Plan Discharge Clinical Impression: Suicidal ideation Patient Disposition: Still a Patient Prescriptions: No Action Depo-Estradiol 5 mg/mL oil 1 ml IM QWEEK prazosin 1 mg capsule 1 cap PO BEDTIME haloperidol 10 mg tablet 1 tab PO BEDTIME lithium carbonate 600 mg capsule 600 mg PO BID spironolactone 50 mg tablet 50 mg PO BID Interventions: [place]-Suicide Risk Severity Scale Last Done: 10/01/22 04:46
--- NOTE | 2022-10-01 04:54 | PC.NURSE ---
Patient is in bed appears resting, Ibuprofen 800 mg administered for tooth ache, pending effect, urine pending at this time, blood draw completed/pending result, care consult ordered for sucidality, pending evaluation in the morning, med rec completed/pending provider's approval, behavior non concerning, VSS, will continue to monitor.
[2022-10-01 04:57] LABS: Alanine Aminotransferase 23 U/L (0-40); Alkaline Phosphatase 69 U/L (39-117); Anion Gap 14 (12-20); Aspartate Amino Transferase 22 U/L (5-37); Bilirubin Total 1.3 mg/dL (0.0-1.0); Blood Urea Nitrogen 17 mg/dL (9-16); Calcium 9.6 mg/dL (8.4-10.2); Carbon Dioxide 24 mmol/L (22-29); Chloride 103 mmol/L (96-108); Creatinine Clr Calc Pharmacy 140.4; Estimated Glomerular Filt Rate > 60; Ethanol < 10 mg/dL; Glucose Random 86 mg/dL (60-115); Potassium 3.9 mmol/L (3.3-5.1); Sodium 137 mmol/L (135-145); Total Protein 7.1 g/dL (6.5-8.0)
--- NOTE | 2022-10-01 07:31 | PHA.MEDREC ---
Pharmacy Consult ? Medication Reconciliation Pharmacy has reviewed the medication reconciliation done by RN.
--- NOTE | 2022-10-01 09:48 | PC.NURSE ---
medicated as ordered, apap for dental pain, called respite himself and secured a bed and working w care team to go, nad, pleasant and cooperative
== END 2022-10-01 11:34 ==
PROVIDERS: Emergency Medicine; Emergency Provider Emergency Medicine Emergency Medical Services; PCP Internal Medicine
DX: R45.851 Suicidal ideations (principal); F31.9 Bipolar disorder, unspecified; Z79.899 Other long term (current) drug therapy
CPT/HCPCS: 36415; 80053; 80178; 80307; 81003; 85025; 99284; S9485

== ENCOUNTER 2022-10-22 20:00 | Emergency (ER) | payer MEDICAID, SELFPAY ==
[2022-10-22 20:14] VITALS: BP 109/71; PULSE 53; RESP 18; TEMP 36.5; O2SAT 98; BMI 27.3
[2022-10-22] MEDS: Ibuprofen 800 MG TABLET PO (21:42)
--- NOTE | 2022-10-22 22:02 | ED.GENADULT ---
HPI - General Adult General Chief complaint: Dental/Oral Stated complaint: toothache Time Seen by Provider: 10/22/22 22:01 Source: patient and EMS Mode of arrival: EMS Limitations: no limitations History of Present Illness HPI narrative: Patient is a 47 year old assigned male at , now female, with a history of bipolar and personality disorders presenting to the emergency department today with dental pain. Patient states that she is currently at [facility] and they are not allowing her to have ibuprofen for her dental pain because it may interact with her lithium. Patient denies any dizziness, lightheadedness, abdominal pain, nausea, vomiting, fever, chills, blurry vision, double vision, loss of vision, chest pain, difficulty breathing, shortness of breath, back pain, night sweats, pain with urination, increased urinary frequency, increased urinary urgency, blood in her urine or stool, syncope or a near syncopal episode, recent trauma or falls, bowel incontinence, bladder incontinence, bowel retention, bladder retention, or any other complaints at this time. Onset (ago): day(s) Location: mouth Radiation: non-radiation Severity: mild Severity scale (1-10): 3 Quality: aching and dull Pain Consistency: constant Relieving factors: none Exacerbating factors: none Associated symptoms: denies other symptoms Treatments prior to arrival: none Related Data Home Medications Medication Instructions Recorded Confirmed haloperidol 10 mg tablet 1 tab PO BEDTIME 06/01/22 10/01/22 prazosin 1 mg capsule 1 cap PO BEDTIME 06/01/22 10/01/22 diphenhydramine HCl 50 mg capsule 50 mg PO BEDTIME 10/01/22 10/01/22 (Banophen) estradiol valerate 10 mg/mL 10 mg IM QWEEK 10/01/22 10/01/22 intramuscular oil lithium carbonate 600 mg capsule 600 mg PO BID 10/01/22 10/01/22 spironolactone 50 mg tablet 50 mg PO BID 10/01/22 10/01/22 Previous Rx's Medication Instructions Recorded chlorhexidine gluconate 0.12 % 15 ml buccal BID #118 mL 10/22/22 mouthwash (Peridex) hydrocodone 5 mg-acetaminophen 325 1 tab PO Q6H PRN pain #7 tabs 10/22/22 mg tablet Allergies Allergy/AdvReac Type Severity Reaction Status Date / Time nicotine [From [facility]] Allergy Mild SHORTNESS Verified 02/17/22 00:45 OF BREATH ketchup [KETCHUP] Allergy Unknown RASH Verified 02/17/22 00:45 onion [ONION] Allergy Unknown RASH Verified 02/17/22 00:45 tomato [TOMATO] Allergy Unknown RASH Verified 02/17/22 00:45 Review of Systems Constitutional: Constitutional: Reports no additional constitutional complaints, Denies chills, Denies fever(s) and Denies night sweats Eyes: Eyes: Reports no additional eye complaints, Denies blurry vision, Denies change in vision, Denies diplopia, Denies eye discharge, Denies loss of vision and Denies eye pain ENT: Denies dizziness Comments: dental pain Cardiovascular: Cardiovascular: Reports no additional cardiovascular complaints, Denies chest pain, Denies lightheadedness, Denies Loss of Consciousness and Denies dyspnea Respiratory: Respiratory: Reports no additional respiratory complaints and Denies dyspnea Gastrointestinal: Gastrointestinal: Reports no additional gastrointestinal complaints, Denies abdominal pain, Denies melena, Denies hematochezia, Denies change in bowel habits and Denies change in stool character Genitourinary: Genitourinary: Reports no additional male genitourinary complaints, Denies hematuria, Denies oliguria, Denies difficulty urinating, Denies dysuria, Denies urinary frequency, Denies urinary hesitancy, Denies urinary incontinence and Denies urinary urgency Musculoskeletal: Musculoskeletal: Reports no additional musculoskeletal complaints, Denies numbness and Denies tingling Neurologic: Denies dizziness, Denies loss of vision, Denies numbness and Denies tingling Psychiatric: Psychiatric: Reports no additional psychiatric complaints Endocrine: Endocrine: Reports no additional endocrine complaints Hematologic/Lymphatic: Hematologic/Lymphatic: Reports no additional hematologic/lymphatic complaints Allergic/Immunologic: Allergic/Immunologic: Reports no additional allergic/immunologic complaints PMFSH Past Medical History Attestation statement: The following information was validated with the patient. Source: old records reviewed and nursing notes reviewed Medical History Bipolar 1 disorder Personality disorder Transgender Social History Social History Alcohol intake: never Patient Tobacco Use Status: Never used Tobacco Smoked in Last 30 Days: No Use of substances other than those prescribed or required for medical reasons: No Substance Use Type: Crack/Cocaine Advance Directives: No Advance Directives Information Provided: No Physical Exam ED Vital Signs: Vital Signs - 24 hr 10/22/22 20:14 Temperature 97.7 F Pulse Rate 53 Respiratory Rate 18 Blood Pressure 109/71 Pulse Oximetry 98 Oxygen Delivery Method Room Air BMI result Body Mass Index 27.3 Const General: cooperative, no acute distress, alert and awake Nutritional Appearance: well nourished Orientation/consciousness: patient oriented x3 Limitations: no limitations HENMT Head: Yes normal to inspection and Yes atraumatic Ears: hearing grossly normal bilaterally and external ears normal General nose exam: Normal external nose present, no nasal discharge noted and no epistaxis Face and sinus: Yes normal facial exam, No abrasion and No laceration Mouth: Normal oral and palatal mucosa present, no drooling and no muffled voice Teeth and gingiva: poor dentition and other (multiple broken teeth in the right lower portion of the mouth) Eyes General: appearance normal, both eyes and all related structures Periorbital: periorbital findings normal Eyelids: Yes eyelids normal Conjunctivae: conjunctivae normal Pupils: Equal, round and reactive pupils present EOM: EOMs intact bilaterally Neck Neck: Yes normal visual inspection, Yes full ROM and Yes no lymphadenopathy Chest Chest palpation & inspection: normal inspection of the chest Resp Effort & Inspection: normal respiratory effort and able to speak in complete sentences GI Inspection: Yes normal to inspection Neuro General: patient oriented x3 and moves all extremities Cranial nerves: Yes Equal, round and reactive pupils present Cognition (Neuro): normal cognition Motor exam (neuro): 5/5 motor strength present throughout Sensory Exam: Normal double simultaneous stimulation for sensation Coordination: [id number] test normal Extrem General: Yes normal to inspection, Yes full ROM and Yes capillary refill normal Psych Appearance: grossly normal Mental Status: mental status grossly normal Affect: normal affect Attitude: cooperative Thought process: Normal thought process present Thought content: Normal thought content present Insight: Good insight present (Psych) Medications Administered Discontinued Medications Generic Name Dose Route Start Last Admin Trade Name Bangq PRN Reason Stop Dose Admin Hydrocodone Bitart/Acetaminophen 1 tab 10/22/22 22:15 10/22/22 22:37 Hydrocodone Bit/Acetam 5/325 Tablet PO 10/22/22 22:16 1 tab ONCE ONE Administration Ibuprofen 800 mg 10/22/22 21:32 10/22/22 21:42 Ibuprofen 800 Mg Tablet PO 10/22/22 21:33 800 mg ONCE ONE Administration Medical Decision Making Medical Decision Making [facility] Narrative: Patient is a 47 year old assigned male at , now female, with a history of bipolar and personality disorders presenting to the emergency department today with dental pain. Patient's physical exam showed extensive poor dentition and multiple broken teeth of the right bottom mouth and surrounding erythema. I explained my physical exam findings to the patient. I answered all questions asked by the patient. Patient received PO [place] which she stated helped her symptoms significantly. I stressed the importance of the patient taking her medication as prescribed. I stressed the importance of the patient following up with her primary care provider and a dentist. I stressed the importance of the patient returning to the emergency department immediately if her symptoms were to worsen or if she were to develop any dizziness, shortness of breath, difficulty breathing, chest pain, blurry vision, loss of vision, nausea, vomiting, abdominal pain, fever, chills, back pain, or any other complaints. Patient verbalized agreement and understanding with this treatment plan and discharge. Differential Diagnosis Differential Diagnoses: The differential diagnosis associated with the presentation includes Dental pain Poor dentition Dental abscess Independent Historian Clinical information obtained from an independent historian. History obtained from or confirmed by: EMS (EMS provided additional history and confirmed the history provided by the patient.) Prescription Management I considered prescription management with: Pain Medication (patient prescribed pain medication) and Antibiotic (patient prescribed an antibiotic) Discharge Plan Discharge Clinical Impression: Dental abscess, Toothache Patient Disposition: Home, Self-Care Instructions: Dental Abscess (ED), Toothache (ED) Additional Instructions: Follow up with your primary care provider and a dentist. Return to the emergency department immediately if your symptoms worsen or if you develop any dizziness, shortness of breath, difficulty breathing, chest pain, blurry vision, loss of vision, nausea, vomiting, abdominal pain, fever, chills, back pain, or any other complaints. Call or visit any of the clinics below to establish with a dentist: [facility] [address] [place] [address] [facility] [address] [facility], [address] Elroy Joaquin [address] [place] [id number] [facility] [address] [place] [id number] [facility] [address] [place], [place] [id number] [place] [address] [place] [address] Prescriptions: New chlorhexidine gluconate [Peridex] 0.12 % mouthwash 15 ml buccal BID Qty: 118 0RF hydrocodone-acetaminophen 5-325 mg tablet 1 tab PO Q6H PRN (Reason: pain) Qty: 7 0RF Rx Instructions: Partial Fill upon patient request. No Action prazosin 1 mg capsule 1 cap PO BEDTIME haloperidol 10 mg tablet 1 tab PO BEDTIME lithium carbonate 600 mg capsule 600 mg PO BID spironolactone 50 mg tablet 50 mg PO BID diphenhydramine HCl [Banophen] 50 mg capsule 50 mg PO BEDTIME estradiol valerate 10 mg/mL oil 10 mg IM QWEEK Referrals: Anibal Ordonez MD [Primary Care Provider] - Interventions: ED Discharge Assessment Last Done: 10/22/22 22:49 Discharge Date/Time: 10/23/22 01:07 Print Language: Panamanian
[2022-10-22] MEDS: HYDROcodone Bit/Acetam 5/325 TABLET 1 TAB PO (22:37)
== END 2022-10-23 01:07 | disposition home or self-care (01) ==
PROVIDERS: Emergency Provider Emergency Medicine; PCP Internal Medicine
DX: K04.7 Periapical abscess without sinus (principal); K08.89 Other specified disorders of teeth and supporting structures; Z79.899 Other long term (current) drug therapy
CPT/HCPCS: 99283; 99284

== ENCOUNTER 2023-04-16 03:10 | Emergency (ER) | payer MEDICAID, SELFPAY ==
[2023-04-16 03:24] VITALS: BP 135/56; PULSE 65; RESP 18; TEMP 36.3; O2SAT 97; BMI 25.1
--- NOTE | 2023-04-16 03:51 | ED_ITS ---
HPI - Psych General Chief Complaint: Psychiatric Symptoms Stated Complaint: SI Time Seen by Provider: 04/16/23 03:50 Source: patient Mode of arrival: ambulatory Limitations: no limitations History of Present Illness HPI Narrative: 47-year-old transgender female with history of bipolar disorder and personality disorder who presents emergency department for evaluation of suicidal ideation. She states that she is been having suicidal thoughts for approximately 2 days. She has a plan to cut her wrist. Patient denied being ill in any way prior to coming to the emergency department. She denied fever, chills, rhinorrhea, cough, sore throat, chest pain, shortness of breath, nausea , vomiting or diarrhea. Related Data Home Medications Medication Instructions Recorded Confirmed haloperidol 10 mg tablet 1 tab PO BEDTIME 06/01/22 10/01/22 prazosin 1 mg capsule 1 cap PO BEDTIME 06/01/22 10/01/22 diphenhydramine HCl 50 mg capsule 50 mg PO BEDTIME 10/01/22 10/01/22 (Banophen) estradiol valerate 10 mg/mL 10 mg IM QWEEK 10/01/22 10/01/22 intramuscular oil lithium carbonate 600 mg capsule 600 mg PO BID 10/01/22 10/01/22 spironolactone 50 mg tablet 50 mg PO BID 10/01/22 10/01/22 Previous Rx's Medication Instructions Recorded chlorhexidine gluconate 0.12 % 15 ml buccal BID #118 mL 10/22/22 mouthwash (Peridex) hydrocodone 5 mg-acetaminophen 325 1 tab PO Q6H PRN pain #7 tabs 10/22/22 mg tablet Allergies Allergy/AdvReac Type Severity Reaction Status Date / Time nicotine [From [facility]] Allergy Mild SHORTNESS Verified 04/16/23 03:21 OF BREATH ketchup [KETCHUP] Allergy Unknown RASH Verified 04/16/23 03:21 onion [ONION] Allergy Unknown RASH Verified 04/16/23 03:21 tomato [TOMATO] Allergy Unknown RASH Verified 04/16/23 03:21 Review of Systems 2 Review of Systems: Yes all other systems are reviewed and are negative PMFSH Past Medical History Onset Date is defined in the Problem List Problems that require an onset date and time if occurred within 24 hrs of arrival to the ED Aortic Dissection and Rupture; Neurologic impairment; Cardiopulmonary Arrest; Endotracheal Intubation; Insertion or Replacement of Mechanical Circulatory Assist Device Medical History Transgender Personality disorder Bipolar 1 disorder Social History Social History Alcohol intake: never Patient Tobacco Use Status: Never used Tobacco Substance Use Type: Crack/Cocaine Advance Directives: No Advance Directives Information Provided: No Physical Exam 2 Vital Signs: Vital Signs: Last Vital Signs Temp 97.3 F 04/16/23 03:24 Pulse 65 04/16/23 03:24 Resp 18 04/16/23 03:24 BP 135/56 L 04/16/23 03:24 Pulse Ox 97 04/16/23 03:24 O2 Del Method Room Air 04/16/23 03:24 BMI result Body Mass Index 25.1 Vital signs were normal Exam: General: Awake, alert in no distress Head: Normocephalic, atraumatic EENT: PERRL, Lids normal, sclera normal, conjunctiva normal, nose normal , ears normal, throat without erythema or exudates Neck: Supple, no adenopathy, no trachea midline or C-spine tenderness Lung: breath sounds symmetric, no wheezing, rales or rhonchi Chest: symmetric movement, nontender Heart: regular rate and rhythm, normal S1, S2 no murmurs or rubs Abdomen: soft, non-tender, nondistended, normal bowel sounds Back: no vertebral tenderness, no CVAT Extremities: no deformities, moves all extremities symmetrically Neuro: Awake, alert, oriented, normal speech, cranial nerves intact, moves all extremities symmetrically Psych: Pleasant, cooperative Medical Decision Making Medical Decision Making MDM Narrative: 47-year-old transgender female with history of personality disorder bipolar disorder who presents emergency department for evaluation 2 days suicidal ideation with a plan to cut her wrists. Patient's vital signs were normal. Physical examination was unremarkable. Following evaluation was ordered: CBC, CMP, drug screen urine, ethanol, influenza, COVID-19 My interpretation patient's laboratory evaluation is as follows: WBC elevated 11,200. Glucose elevated. Urine tox positive for cocaine and marijuana. Ethanol was below detectable limits. 06:56 Start physician observation Patient is medically cleared to be seen by the care team. At the end of my shift, patient's care was turned over to my colleague, Dr. Adrian. Differential Diagnosis Differential Diagnoses: The differential diagnosis associated with the presentation includes Differential diagnosis includes was not limited to depression, anxiety, suicidal ideation, alcohol intoxication, substance use, anemia, electrolyte abnormalities Admission/Observation Consideration of admission/observation: Escalation of care including admission/observation considered Lab Data 04/16/23 05:10 04/16/23 05:10 Labs: Lab Results 04/16/23 Range/Units 05:10 WBC 11.2 H (4.8-10.8) X10*3/uL RBC 4.52 L (4.60-5.80) X10*6/uL Hgb 13.7 L (14.0-18.0) g/dl Hct 40.0 L (42.0-52.0) % MCV 88.5 (80.0-98.0) fL MCH 30.3 (27.0-33.0) pg MCHC 34.3 (31.0-36.0) g/dl RDW 12.5 (11.0-16.0) % Plt Count 230 (160-400) X10*3/uL MPV 10.1 (9.4-12.4) fL Immature Gran % (Auto) 0.4 (0.0-0.4) % Neut % (Auto) 59.6 (45-73) % Lymph % (Auto) 28.4 (20-40) % Mitchell % (Auto) 7.4 (2-11) % Eos % (Auto) 3.6 (0-4) % Baso % (Auto) 0.6 (0-2) % Lymph # (Auto) 3.2 (1.2-4.9) X10*3/uL Mitchell # (Auto) 0.8 (0.1-1.2) X10*3/uL Eos # (Auto) 0.4 (0.0-0.4) X10*3/uL Baso # (Auto) 0.1 (0.0-0.2) X10*3/uL Abs Immat Gran (auto) 0.04 H (0.00-0.03) X10*3/uL Absolute Neuts (auto) 6.7 (2.0-8.3) x10*3/uL Absolute Nucleated RBC 0.000 (0.0-0.012) X10*3/uL Nucleated RBC % (auto) 0.0 (0.0-0.2) /100WBC Sodium 140 (135-145) mmol/L Potassium 3.4 (3.3-5.1) mmol/L Chloride 108 (96-108) mmol/L Carbon Dioxide 28 (22-29) mmol/L Anion Gap 7 L (12-20) BUN 15 (9-16) mg/dL Creatinine 0.81 (0.5-1.4) mg/dL Estim Creat Clear Calc 121.3 Estimated GFR > 60 Random Glucose 127 H (60-115) mg/dL Calcium 8.9 D (8.4-10.2) mg/dL Total Bilirubin 1.0 (0.0-1.0) mg/dL AST 21 (5-37) U/L ALT 16 (0-40) U/L Alkaline Phosphatase 66 (39-117) U/L Total Protein 6.5 (6.5-8.0) g/dL Albumin 3.7 (3.5-5.0) g/dL Urine Opiates Screen Not Detected (Not Detect) Urine Fentanyl Screen Not Detected (Not Detect) Ur Barbiturates Screen Not Detected (Not Detect) Ur Phencyclidine Scrn Not Detected (Not Detect) Ur Amphetamines Screen Not Detected (Not Detect) U Benzodiazepines Scrn Not Detected (Not Detect) Urine Cocaine Screen POSITIVE H (Not Detect) U Marijuana (THC) Screen POSITIVE H (Not Detect) Ethyl Alcohol < 10 mg/dL COVID-19 ([place]) Negative (Negative) COVID-19 Clin Com See Note Influenza Type A ([place]) Negative (Negative) Influenza Type B ([place]) Negative (Negative) Influenza A & B Note See Note Discharge Plan Discharge Clinical Impression: Suicidal ideation Patient Disposition: Still a Patient Prescriptions: No Action prazosin 1 mg capsule 1 cap PO BEDTIME haloperidol 10 mg tablet 1 tab PO BEDTIME chlorhexidine gluconate [Peridex] 0.12 % mouthwash 15 ml buccal BID Qty: 118 0RF hydrocodone-acetaminophen 5-325 mg tablet 1 tab PO Q6H PRN (Reason: pain) Qty: 7 0RF Rx Instructions: Partial Fill upon patient request. lithium carbonate 600 mg capsule 600 mg PO BID spironolactone 50 mg tablet 50 mg PO BID diphenhydramine HCl [Banophen] 50 mg capsule 50 mg PO BEDTIME estradiol valerate 10 mg/mL oil 10 mg IM QWEEK
[2023-04-16 05:15] LABS: MANUAL DIFF FLAG NO
[2023-04-16 05:16] LABS: Basophils Absolute Auto 0.1 X10*3/uL (0.0-0.2); Basophils Percent Auto 0.6 % (0-2); Eosinophils Absolute Auto 0.4 X10*3/uL (0.0-0.4); Eosinophils Percent Auto 3.6 % (0-4); Hemoglobin 13.7 g/dl (14.0-18.0); Imm Gran Abs Auto 0.04 X10*3/uL (0.00-0.03); Imm Gran Pct Auto 0.4 % (0.0-0.4); Lymphocytes Absolute Auto 3.2 X10*3/uL (1.2-4.9); Lymphocytes Percent Auto 28.4 % (20-40); Mean Corpuscular HGB Conc 34.3 g/dl (31.0-36.0); Mean Corpuscular Hemoglobin 30.3 pg (27.0-33.0); Mean Corpuscular Volume 88.5 fL (80.0-98.0); Mean Platelet Volume 10.1 fL (9.4-12.4); Monocytes Absolute Auto 0.8 X10*3/uL (0.1-1.2); Monocytes Percent Auto 7.4 % (2-11); Neutrophils Absolute Auto 6.7 x10*3/uL (2.0-8.3); Neutrophils Percent Auto 59.6 % (45-73); Platelet Count 230 X10*3/uL (160-400); Red Blood Count 4.52 X10*6/uL (4.60-5.80); Red Cell Distribution Width 12.5 % (11.0-16.0); White Blood Count 11.2 X10*3/uL (4.8-10.8)
[2023-04-16 05:25] LABS: Amphetamine Screen Urine Not Detected (Not Detect); Barbiturates, Urine Not Detected (Not Detect); Benzodiazepines Screen Urine Not Detected (Not Detect); Cannabinoid Screen Urine POSITIVE (Not Detect); Cocaine Screen Urine POSITIVE (Not Detect); Fentanyl, urine Not Detected (Not Detect); Opiate Screen Urine Not Detected (Not Detect); Phencyclidine Screen Urine Not Detected (Not Detect)
[2023-04-16 05:32] LABS: COVID-19 Test Negative (Negative); IDNOW Serial# 152EDE1D
[2023-04-16 05:33] LABS: Alanine Aminotransferase 16 U/L (0-40); Albumin Level 3.7 g/dL (3.5-5.0); Alkaline Phosphatase 66 U/L (39-117); Anion Gap 7 (12-20); Aspartate Amino Transferase 21 U/L (5-37); Blood Urea Nitrogen 15 mg/dL (9-16); Calcium 8.9 mg/dL (8.4-10.2); Carbon Dioxide 28 mmol/L (22-29); Chloride 108 mmol/L (96-108); Creatinine Clr Calc Pharmacy 121.3; Estimated Glomerular Filt Rate > 60; Ethanol < 10 mg/dL; Glucose Random 127 mg/dL (60-115); Potassium 3.4 mmol/L (3.3-5.1); Sodium 140 mmol/L (135-145); Total Protein 6.5 g/dL (6.5-8.0)
[2023-04-16 05:35] LABS: IDNOW Serial# 08D9AD1C; Influenza A Negative (Negative); Influenza B2 Negative (Negative)
== END 2023-04-16 13:56 | disposition home or self-care (01) ==
PROVIDERS: Emergency Provider Emergency Medicine Emergency Medical Services
DX: F33.1 Major depressive disorder, recurrent, moderate (principal); R45.851 Suicidal ideations; Z11.52 Encounter for screening for COVID-19; Z20.828 Contact with and (suspected) exposure to other viral communicable diseases; Z79.899 Other long term (current) drug therapy
CPT/HCPCS: 80053; 80307; 85025; 87502; 87635; 99283; S9485

== ENCOUNTER 2023-04-17 23:33 | Emergency (ER) | payer MEDICAID, SELFPAY ==
[2023-04-17 23:43] VITALS: BP 111/61; PULSE 63; RESP 18; TEMP 36.6; O2SAT 98; BMI 20.3
--- NOTE | 2023-04-18 00:31 | ED_ITS ---
HPI - Psych General Chief Complaint: Psychiatric Symptoms Stated Complaint: SI Time Seen by Provider: 04/17/23 23:55 Source: patient and EMS Mode of arrival: EMS Limitations: no limitations History of Present Illness HPI Narrative: Patient is a 47-year-old who presents to emergency department via EMS with reports of suicidal ideations with plan to cut their wrists. There are superficial abrasions to the bilateral wrists reportedly without any active bleeding. Reports recently being in the emergency department and having crisis evaluation, at that time he felt okay to return home but since then has been experiencing worsening suicidal thoughts and presents for evaluation. Denies any physical complaints at this time. Denies any homicidal ideations. Denies any recreational drug or alcohol usage. Related Data Home Medications Medication Instructions Recorded Confirmed haloperidol 10 mg tablet 1 tab PO BEDTIME 06/01/22 10/01/22 prazosin 1 mg capsule 1 cap PO BEDTIME 06/01/22 10/01/22 diphenhydramine HCl 50 mg capsule 50 mg PO BEDTIME 10/01/22 10/01/22 (Banophen) estradiol valerate 10 mg/mL 10 mg IM QWEEK 10/01/22 10/01/22 intramuscular oil lithium carbonate 600 mg capsule 600 mg PO BID 10/01/22 10/01/22 spironolactone 50 mg tablet 50 mg PO BID 10/01/22 10/01/22 Previous Rx's Medication Instructions Recorded chlorhexidine gluconate 0.12 % 15 ml buccal BID #118 mL 10/22/22 mouthwash (Peridex) hydrocodone 5 mg-acetaminophen 325 1 tab PO Q6H PRN pain #7 tabs 10/22/22 mg tablet Allergies Allergy/AdvReac Type Severity Reaction Status Date / Time nicotine [From NICODERM CQ] Allergy Mild SHORTNESS Verified 04/17/23 23:43 OF BREATH ketchup [KETCHUP] Allergy Unknown RASH Verified 04/17/23 23:43 onion [ONION] Allergy Unknown RASH Verified 04/17/23 23:43 tomato [TOMATO] Allergy Unknown RASH Verified 04/17/23 23:43 Review of Systems 2 Review of Systems: Yes all other systems are reviewed and are negative PMFSH Past Medical History Attestation statement: The following information was validated with the patient. Source: old records reviewed Onset Date is defined in the Problem List Problems that require an onset date and time if occurred within 24 hrs of arrival to the ED Aortic Dissection and Rupture; Neurologic impairment; Cardiopulmonary Arrest; Endotracheal Intubation; Insertion or Replacement of Mechanical Circulatory Assist Device Medical History Transgender Personality disorder Bipolar 1 disorder Social History Social History Alcohol intake: never Patient Tobacco Use Status: Never used Tobacco Substance Use Type: Crack/Cocaine Advance Directives: No Advance Directives Information Provided: Yes Physical Exam 2 Vital Signs: Vital Signs: Last Vital Signs Temp 97.8 F 04/17/23 23:43 Pulse 63 04/17/23 23:43 Resp 18 04/17/23 23:43 BP 111/61 04/17/23 23:43 Pulse Ox 98 04/17/23 23:43 O2 Del Method Room Air 04/17/23 23:43 BMI result Body Mass Index 20.3 Appearance: Alert.?Oriented to person, place and time. No acute distress.?Normal affect. Eyes: Pupils equal, round and reactive to light.? ENT: Pharynx normal.?? Neck: Normal inspection.? Neck supple.?? CVS: Heart sounds normal. Normal heart rate and rhythm.? Pulses normal.?? Respiratory: No respiratory distress.? Lung sounds clear to auscultation bilaterally?? Abdomen: Soft and non-tender. Normoactive bowel sounds. ?? Skin: Skin warm and dry.? Normal skin color.? Extremities: No lower extremity edema.? Neuro: Moves all extremities spontaneously. Sensation intact bilaterally. CN II- XII intact. No focal neuro deficits. Ambulates with normal steady gait. Medical Decision Making Medical Decision Making MDM Narrative: Patient is a 47-year-old transgender female presenting to the emergency department for evaluation of suicidal ideations that are progressively worsening, has plans to cut her wrists. She has a history of personality disorder and bipolar disorder. Of note she was seen in the emergency department yesterday 04/16/2023 with similar complaint, she was evaluated by care team, there is plan for a dual diagnosis bed search, however patient felt as though they were feeling better stable for discharge, care team was reconsulted and plan was for discharge. Given self reported worsening depression and suicidal ideations will refer again to care team for further evaluation. Plan to obtain basic labs to exclude metabolic abnormality. Will require to be Placed in physician observation so that care team evaluation can ensue. Differential Diagnosis Differential Diagnoses: The differential diagnosis associated with the presentation includes (Depression, anxiety, suicidal ideations, substance use) Admission/Observation Consideration of admission/observation: Escalation of care including admission/observation considered (See narrative above) Consult Healthcare Provider Management of the patient was discussed with: Behavioral Health Provider (Care team) Lab Data MDM Lab Attestation statement: I reviewed the patient's lab results. CBC is without leukocytosis, very mild normocytic anemia. BMP overall unremarkable. Toxicology positive for cocaine. 04/18/23 00:46 04/18/23 00:47 Labs: Lab Results 04/18/23 04/18/23 04/18/23 Range/Units 00:46 00:47 00:52 WBC 10.5 (4.8-10.8) X10*3/uL RBC 4.61 (4.60-5.80) X10*6/uL Hgb 13.9 L (14.0-18.0) g/dl Hct 40.4 L (42.0-52.0) % MCV 87.6 (80.0-98.0) fL MCH 30.2 (27.0-33.0) pg MCHC 34.4 (31.0-36.0) g/dl RDW 12.4 (11.0-16.0) % Plt Count 226 (160-400) X10*3/uL MPV 10.0 (9.4-12.4) fL Immature Gran % (Auto) 0.3 (0.0-0.4) % Neut % (Auto) 62.2 (45-73) % Lymph % (Auto) 26.8 (20-40) % [place] % (Auto) 8.4 (2-11) % Eos % (Auto) 1.6 (0-4) % Baso % (Auto) 0.7 (0-2) % Lymph # (Auto) 2.8 (1.2-4.9) X10*3/uL [place] # (Auto) 0.9 (0.1-1.2) X10*3/uL Eos # (Auto) 0.2 (0.0-0.4) X10*3/uL Baso # (Auto) 0.1 (0.0-0.2) X10*3/uL Abs Immat Gran (auto) 0.03 (0.00-0.03) X10*3/uL Absolute Neuts (auto) 6.5 (2.0-8.3) x10*3/uL Absolute Nucleated RBC 0.000 (0.0-0.012) X10*3/uL Nucleated RBC % (auto) 0.0 (0.0-0.2) /100WBC Sodium 139 (135-145) mmol/L Potassium 3.6 (3.3-5.1) mmol/L Chloride 106 (96-108) mmol/L Carbon Dioxide 24 (22-29) mmol/L Anion Gap 13 (12-20) BUN 19 H (9-16) mg/dL Creatinine 0.83 (0.5-1.4) mg/dL Estim Creat Clear Calc 107.0 Estimated GFR > 60 Random Glucose 92 (60-115) mg/dL Calcium 9.2 (8.4-10.2) mg/dL Urine Opiates Screen Not Detected (Not Detect) Urine Fentanyl Screen Not Detected (Not Detect) Ur Barbiturates Screen Not Detected (Not Detect) Ur Phencyclidine Scrn Not Detected (Not Detect) Ur Amphetamines Screen Not Detected (Not Detect) U Benzodiazepines Scrn Not Detected (Not Detect) Urine Cocaine Screen POSITIVE H (Not Detect) U Marijuana (THC) Screen Not Detected (Not Detect) Ethyl Alcohol < 10 mg/dL COVID-19 ([place]) Negative (Negative) COVID-19 Clin Com See Note Independent Historian Clinical information obtained from an independent historian. History obtained from or confirmed by: EMS External Record Review External record reviewed: Outpatient record Discharge Plan Discharge Clinical Impression: Suicidal ideation Patient Disposition: Still a Patient Prescriptions: No Action prazosin 1 mg capsule 1 cap PO BEDTIME haloperidol 10 mg tablet 1 tab PO BEDTIME chlorhexidine gluconate [Peridex] 0.12 % mouthwash 15 ml buccal BID Qty: 118 0RF hydrocodone-acetaminophen 5-325 mg tablet 1 tab PO Q6H PRN (Reason: pain) Qty: 7 0RF Rx Instructions: Partial Fill upon patient request. lithium carbonate 600 mg capsule 600 mg PO BID spironolactone 50 mg tablet 50 mg PO BID diphenhydramine HCl [Banophen] 50 mg capsule 50 mg PO BEDTIME estradiol valerate 10 mg/mL oil 10 mg IM QWEEK
[2023-04-18 00:52] LABS: Basophils Absolute Auto 0.1 X10*3/uL (0.0-0.2); Basophils Percent Auto 0.7 % (0-2); Eosinophils Absolute Auto 0.2 X10*3/uL (0.0-0.4); Eosinophils Percent Auto 1.6 % (0-4); Hematocrit 40.4 % (42.0-52.0); Hemoglobin 13.9 g/dl (14.0-18.0); Imm Gran Abs Auto 0.03 X10*3/uL (0.00-0.03); Imm Gran Pct Auto 0.3 % (0.0-0.4); Lymphocytes Absolute Auto 2.8 X10*3/uL (1.2-4.9); Lymphocytes Percent Auto 26.8 % (20-40); MANUAL DIFF FLAG NO; Mean Corpuscular HGB Conc 34.4 g/dl (31.0-36.0); Mean Corpuscular Hemoglobin 30.2 pg (27.0-33.0); Mean Corpuscular Volume 87.6 fL (80.0-98.0); Monocytes Absolute Auto 0.9 X10*3/uL (0.1-1.2); Monocytes Percent Auto 8.4 % (2-11); Neutrophils Absolute Auto 6.5 x10*3/uL (2.0-8.3); Neutrophils Percent Auto 62.2 % (45-73); Platelet Count 226 X10*3/uL (160-400); Red Blood Count 4.61 X10*6/uL (4.60-5.80); Red Cell Distribution Width 12.4 % (11.0-16.0); White Blood Count 10.5 X10*3/uL (4.8-10.8)
[2023-04-18 01:04] LABS: COVID-19 Test Negative (Negative); IDNOW Serial# 6674DD1D
[2023-04-18 01:04] LABS: Amphetamine Screen Urine Not Detected (Not Detect); Barbiturates, Urine Not Detected (Not Detect); Benzodiazepines Screen Urine Not Detected (Not Detect); Cannabinoid Screen Urine Not Detected (Not Detect); Cocaine Screen Urine POSITIVE (Not Detect); Fentanyl, urine Not Detected (Not Detect); Opiate Screen Urine Not Detected (Not Detect); Phencyclidine Screen Urine Not Detected (Not Detect)
[2023-04-18 01:05] LABS: Anion Gap 13 (12-20); Blood Urea Nitrogen 19 mg/dL (9-16); Calcium 9.2 mg/dL (8.4-10.2); Carbon Dioxide 24 mmol/L (22-29); Chloride 106 mmol/L (96-108); Estimated Glomerular Filt Rate > 60; Ethanol < 10 mg/dL; Glucose Random 92 mg/dL (60-115); Potassium 3.6 mmol/L (3.3-5.1); Sodium 139 mmol/L (135-145)
--- NOTE | 2023-04-18 01:05 | PC.NURSE ---
pt changed over by [employer] pct on arrival belongings secured. sitter at bedside. flora.
[2023-04-18 02:14] VITALS: PULSE 66; RESP 16; O2SAT 94
[2023-04-18 04:25] VITALS: BP 100/58; PULSE 72; RESP 16; O2SAT 97
--- NOTE | 2023-04-18 05:48 | PC.NURSE ---
pt sleeping in stretcher resp even and unlabored nad. 1:1 sitter at bedside.
[2023-04-18 06:05] VITALS: BP 104/57; PULSE 55; RESP 16; O2SAT 98
--- NOTE | 2023-04-18 07:53 | PC.NURSE ---
assumed care of pt at 0700. pt woken up to eat breakfast, offers no complaints. pt now back to sleep. rr even/unlabored. 1:1 sitter at bedside. awaiting care team consult, plan of care ongoing.
--- NOTE | 2023-04-18 11:02 | PC.NURSE ---
pt given PB&J sandwich. pt endorsing SI, denies SI. 1:1 sitter at bedside. awaiting ua, awaiting care team consult.
--- NOTE | 2023-04-18 14:16 | PC.NURSE ---
ua obtained. pt ate lunch. pt CIWA 1, reporting some sweating. 1:1 sitter at bedside. plan of care ongoing.
[2023-04-18 14:46] LABS: Appearance Urine Clear; Color Urine Yellow; Glucose Urine UA Negative (Negative); Leukocyte Esterase Urine Small (1+) (Negative); Nitrite Urine Negative (Negative); PH 5.5 (5.0-9.0); Specific Gravity - Urine 1.025 (1.005-1.025); UMIC TRIGGER UACC YES; Urine Blood Negative (Negative); Urine Ketones Trace mg/dL (Negative); Urine Protein Negative (Neg-Trace)
[2023-04-18 14:48] LABS: Bacteria Urine None Seen (None Seen); Hyaline Casts Urine 0-2 /LPF (0-2); RBC Urine 0-2 /HPF (0-2); Squamous Epithelial Cell Urine 0-2 /HPF (0-2); UACC Culture Trigger YES; WBC Urine 21-50 /HPF (0-5)
--- NOTE | 2023-04-18 15:06 | MHC.CARE ---
Pt is VOLUNTARY for [facility] and can be discharge at Pts request.
--- NOTE | 2023-04-18 18:33 | MHC.EDTECH ---
Patient given dinner tray
[2023-04-18 20:26] VITALS: BP 103/57; PULSE 75; RESP 20; TEMP 36.4; O2SAT 98
--- NOTE | 2023-04-18 21:33 | MHC.CARE ---
Pt was referred to [facility], tw faxed assessment to [facility], referral under review please follow up tomorrow
--- NOTE | 2023-04-18 22:38 | PC.NURSE ---
Pt brought to pod from main ed, offers no complaints at this time. reports no withdrawal symptoms aside from the shakes. No temors noted upon rest. respirations even and unlabored, skin pwd, no apparent distress at this time. Pt voluntary CCS
[2023-04-18 23:41] VITALS: BP 109/58; PULSE 56; RESP 17; TEMP 36.9; O2SAT 98
--- NOTE | 2023-04-19 07:12 | PC.NURSE ---
this RN assumed care of patient, patient is in bed, appears to be sleeping, respirations equal and unlabored. patient shows no signs of distress
--- NOTE | 2023-04-19 09:00 | MHC.CARE ---
Addendum entered by Laurita Ngo [facility] 04/19/23 09:01: Pt requested discharged, [facility] was notified to terminate [facility] referral, spoke with Irma at [facility]. Original Note: Pt referred to [facility], referral activated and currently under review 04/19/23.
--- NOTE | 2023-04-19 09:28 | PC.NURSE ---
patient ordered to be discharged, given belongings, dressed appropriately, ambulated off of unit with steady gait
== END 2023-04-19 09:29 | disposition home or self-care (01) ==
PROVIDERS: Nurse Practitioner Family; Emergency Provider Emergency Medicine
DX: R45.851 Suicidal ideations (principal); Z11.52 Encounter for screening for COVID-19; F14.90 Cocaine use, unspecified, uncomplicated; F31.9 Bipolar disorder, unspecified; F60.9 Personality disorder, unspecified; Z79.899 Other long term (current) drug therapy
CPT/HCPCS: 36415; 80048; 80307; 81001; 85025; 87086; 87635; 99285; S9485

== ENCOUNTER 2023-04-21 | Emergency (ER) | payer MEDICAID, SELFPAY ==
[2023-04-21 00:18] VITALS: BP 106/76; PULSE 58; RESP 14; TEMP 36.6; O2SAT 98; BMI 23.9
[2023-04-21 00:22] VITALS: BP 106/76; PULSE 58; RESP 16; TEMP 36.6; O2SAT 98
[2023-04-21 00:50] LABS: MANUAL DIFF FLAG NO
[2023-04-21 00:52] LABS: Basophils Absolute Auto 0.1 X10*3/uL (0.0-0.2); Basophils Percent Auto 0.7 % (0-2); Eosinophils Absolute Auto 0.2 X10*3/uL (0.0-0.4); Eosinophils Percent Auto 1.7 % (0-4); Hematocrit 40.3 % (42.0-52.0); Imm Gran Abs Auto 0.02 X10*3/uL (0.00-0.03); Imm Gran Pct Auto 0.2 % (0.0-0.4); Lymphocytes Absolute Auto 3.1 X10*3/uL (1.2-4.9); Lymphocytes Percent Auto 31.7 % (20-40); Mean Corpuscular HGB Conc 34.7 g/dl (31.0-36.0); Mean Corpuscular Hemoglobin 30.6 pg (27.0-33.0); Mean Corpuscular Volume 88.2 fL (80.0-98.0); Mean Platelet Volume 9.8 fL (9.4-12.4); Monocytes Absolute Auto 0.8 X10*3/uL (0.1-1.2); Monocytes Percent Auto 8.3 % (2-11); Neutrophils Absolute Auto 5.6 x10*3/uL (2.0-8.3); Neutrophils Percent Auto 57.4 % (45-73); Platelet Count 232 X10*3/uL (160-400); Red Blood Count 4.57 X10*6/uL (4.60-5.80); Red Cell Distribution Width 12.5 % (11.0-16.0); White Blood Count 9.8 X10*3/uL (4.8-10.8)
--- NOTE | 2023-04-21 00:52 | ED_ITS ---
HPI - General Adult General Chief complaint: Psychiatric Symptoms Stated complaint: SI Time Seen by Provider: 04/21/23 00:42 Source: patient, RN notes reviewed and old records reviewed Mode of arrival: ambulatory Limitations: no limitations History of Present Illness HPI narrative: 47-year-old male to female transgender patient presents for evaluation of suicidal ideation Patient was seen here 3 days ago for similar complaints She reports that she never improved in his continued to feel suicidal since her discharge She reports auditory hallucinations These are command hallucinations telling her to ?cut my wrist. ? She has not acted on these Denies any alcohol or drug abuse recently Patient states that she self terminated all of her medications a few weeks ago No other complaints or concerns at this time Related Data Home Medications Medication Instructions Recorded Confirmed No Known Home Meds 04/21/23 04/21/23 Allergies Allergy/AdvReac Type Severity Reaction Status Date / Time nicotine [From NICODERM CQ] Allergy Mild SHORTNESS Verified 04/17/23 23:43 OF BREATH ketchup [KETCHUP] Allergy Unknown RASH Verified 04/17/23 23:43 onion [ONION] Allergy Unknown RASH Verified 04/17/23 23:43 tomato [TOMATO] Allergy Unknown RASH Verified 04/17/23 23:43 Review of Systems 2 Psychiatric: Psychiatric: Reports auditory hallucinations, Reports homicidal ideation and Denies suicidal ideation PMFSH Past Medical History Onset Date is defined in the Problem List Problems that require an onset date and time if occurred within 24 hrs of arrival to the ED Aortic Dissection and Rupture; Neurologic impairment; Cardiopulmonary Arrest; Endotracheal Intubation; Insertion or Replacement of Mechanical Circulatory Assist Device Medical History Transgender Personality disorder Bipolar 1 disorder Social History Social History Alcohol intake: current Alcohol intake frequency: 3 or more drinks per day Alcohol type: hard liquor Patient Tobacco Use Status: Never used Tobacco Use of substances other than those prescribed or required for medical reasons: Yes Substance Use Type: Crack/Cocaine and Marijuana Substance Use Frequency: Daily Advance Directives: No Advance Directives Information Provided: Yes Physical Exam ED Vital Signs: Vital Signs - 24 hr 04/21/23 00:18 04/21/23 00:22 Temperature 97.8 F 97.8 F Pulse Rate 58 58 Respiratory Rate 14 16 Blood Pressure 106/76 106/76 Pulse Oximetry 98 98 Oxygen Delivery Method Room Air Room Air BMI result Body Mass Index 23.9 Const General: healthy appearing, comfortable, no acute distress, alert and awake Nutritional Appearance: well nourished Orientation/consciousness: patient oriented x3 HENMT Head: Yes normocephalic and Yes atraumatic Eyes Eyelids: Yes eyelids normal Conjunctivae: conjunctivae normal Sclerae: sclerae normal Corneas: corneas normal Pupils: Equal, round and reactive pupils present EOM: EOMs intact bilaterally Neck Neck: Yes full ROM Resp Effort & Inspection: normal respiratory effort, able to speak in complete sentences and not labored Skin Other: No lacerations to the upper extremities bilaterally General skin exam: elasticity normal Neuro General: patient oriented x3 Cranial nerves: Yes Equal, round and reactive pupils present and Yes Bilaterally intact EOM present Cognition (Neuro): normal cognition Extrem Other: Moving all extremities well without any obvious deformities Course Reevaluation(s) Reevaluation #1: Patient is medically cleared for care team evaluation Time: 01:32 Medical Decision Making Medical Decision Making [facility] Narrative: 47-year-old male to female patient presents for evaluation of suicidal ideation. She will require medical clearance and the care team evaluation Differential Diagnosis Differential Diagnoses: The differential diagnosis associated with the presentation includes Depression Suicidal ideation Personality disorder Medication noncompliance Lab Data [facility] Lab Attestation statement: I reviewed the patient's lab results. No leukocytosis. No significant anemia. No significant electrolyte abnormalities. BUN is normal at 22. 04/21/23 00:46 04/21/23 00:46 Labs: Lab Results 04/21/23 Range/Units 00:46 WBC 9.8 (4.8-10.8) X10*3/uL RBC 4.57 L (4.60-5.80) X10*6/uL Hgb 14.0 (14.0-18.0) g/dl Hct 40.3 L (42.0-52.0) % MCV 88.2 (80.0-98.0) fL MCH 30.6 (27.0-33.0) pg MCHC 34.7 (31.0-36.0) g/dl RDW 12.5 (11.0-16.0) % Plt Count 232 (160-400) X10*3/uL MPV 9.8 (9.4-12.4) fL Immature Gran % (Auto) 0.2 (0.0-0.4) % Neut % (Auto) 57.4 (45-73) % Lymph % (Auto) 31.7 (20-40) % [place] % (Auto) 8.3 (2-11) % Eos % (Auto) 1.7 (0-4) % Baso % (Auto) 0.7 (0-2) % Lymph # (Auto) 3.1 (1.2-4.9) X10*3/uL [place] # (Auto) 0.8 (0.1-1.2) X10*3/uL Eos # (Auto) 0.2 (0.0-0.4) X10*3/uL Baso # (Auto) 0.1 (0.0-0.2) X10*3/uL Abs Immat Gran (auto) 0.02 (0.00-0.03) X10*3/uL Absolute Neuts (auto) 5.6 (2.0-8.3) x10*3/uL Absolute Nucleated RBC 0.000 (0.0-0.012) X10*3/uL Nucleated RBC % (auto) 0.0 (0.0-0.2) /100WBC Sodium 140 (135-145) mmol/L Potassium 3.7 (3.3-5.1) mmol/L Chloride 104 (96-108) mmol/L Carbon Dioxide 27 (22-29) mmol/L Anion Gap 13 (12-20) BUN 22 H (9-16) mg/dL Creatinine 0.82 (0.5-1.4) mg/dL Estim Creat Clear Calc 119.8 Estimated GFR > 60 Random Glucose 81 (60-115) mg/dL Calcium 9.2 (8.4-10.2) mg/dL Total Bilirubin 0.9 (0.0-1.0) mg/dL AST 20 (5-37) U/L ALT 16 (0-40) U/L Alkaline Phosphatase 70 (39-117) U/L Total Protein 7.0 (6.5-8.0) g/dL Albumin 4.0 (3.5-5.0) g/dL Ethyl Alcohol < 10 mg/dL Discharge Plan Discharge Clinical Impression: Suicidal ideation, Auditory hallucination Patient Disposition: Still a Patient Prescriptions: No Action No Known Home Meds Interventions: [place]-Suicide Risk Severity Scale Last Done: 04/21/23 00:22
[2023-04-21 01:16] LABS: Alanine Aminotransferase 16 U/L (0-40); Alkaline Phosphatase 70 U/L (39-117); Anion Gap 13 (12-20); Aspartate Amino Transferase 20 U/L (5-37); Bilirubin Total 0.9 mg/dL (0.0-1.0); Blood Urea Nitrogen 22 mg/dL (9-16); Calcium 9.2 mg/dL (8.4-10.2); Carbon Dioxide 27 mmol/L (22-29); Chloride 104 mmol/L (96-108); Creatinine Clr Calc Pharmacy 119.8; Estimated Glomerular Filt Rate > 60; Ethanol < 10 mg/dL; Glucose Random 81 mg/dL (60-115); Potassium 3.7 mmol/L (3.3-5.1); Sodium 140 mmol/L (135-145)
[2023-04-21 02:30] LABS: Amphetamine Screen Urine Not Detected (Not Detect); Barbiturates, Urine Not Detected (Not Detect); Benzodiazepines Screen Urine Not Detected (Not Detect); Cannabinoid Screen Urine Not Detected (Not Detect); Cocaine Screen Urine POSITIVE (Not Detect); Fentanyl, urine Not Detected (Not Detect); Opiate Screen Urine Not Detected (Not Detect); Phencyclidine Screen Urine Not Detected (Not Detect)
--- NOTE | 2023-04-21 09:48 | PC.NURSE ---
assumed care of pt at 0700. pt sleeping soundly in recliner. rr even/unlabored. pt woken up to meet with care team for mental status follow up. endorsing SI. plan of care ongoing.
--- NOTE | 2023-04-21 14:18 | PC.NURSE ---
pt watching TV, resting quietly, ate lunch. endorsing SI with plan. denies HI. plan of care ongoing.
--- NOTE | 2023-04-21 14:32 | MHC.CARE ---
Pt was assessed and a VOLUNTARY bedserach , Pt can leave if requested.
[2023-04-21 14:52] VITALS: BP 113/62; PULSE 55; RESP 16; TEMP 36.8; O2SAT 98
--- NOTE | 2023-04-21 18:18 | MHC.EDTECH ---
Patient given dinner tray
--- NOTE | 2023-04-21 18:33 | PHA.MEDREC ---
Pharmacy Consult ? Medication Reconciliation Pharmacy has completed the medication reconciliation. No known home meds per nursing/claim history
[2023-04-21 20:38] VITALS: BP 113/68; PULSE 74; RESP 18; TEMP 36.9; O2SAT 97
[2023-04-21 22:02] VITALS: TEMP 37.9
[2023-04-21] MEDS: Ibuprofen 800 MG TABLET PO (22:12)
[2023-04-21 22:18] LABS: Appearance Urine Clear; Color Urine Yellow; Glucose Urine UA Negative (Negative); Leukocyte Esterase Urine Negative (Negative); Nitrite Urine Negative (Negative); PH 8.5 (5.0-9.0); Urine Blood Negative (Negative); Urine Ketones Negative (Negative); Urine Protein Negative (Neg-Trace)
--- NOTE | 2023-04-21 23:12 | PC.NURSE ---
Took report from off-going RN. PT is a 47 y/o male, here for suicidal ideation. Has been evaluated by care team, is voluntary, pending a bed search. Pt is cooperative and easily arousable with verbal stimuli. Has been seen by care team and bed search is ongoing. Changes position independently in bed as desired and verbalized needs as they arise. Will continue to monitor. Safety checks ongoing.
--- NOTE | 2023-04-22 00:01 | PC.NURSE ---
Pt observed ambulating with a steady gait. Walked to the bathroom and then returned to his room.
[2023-04-22 00:32] VITALS: BP 128/60; PULSE 69; RESP 16; TEMP 37.4; O2SAT 97
--- NOTE | 2023-04-22 02:32 | PC.NURSE ---
Pt is sleeping in bed, appears comfortable. Changes positions independently as desired. Ambulates with a steady gait and verbalizes needs. Uses the bathroom as needed. Pt is cooperative with clear speech. Will continue to monitor and regular safety checks will continue.
--- NOTE | 2023-04-22 03:16 | PC.NURSE ---
Pt appeared at the nurses station and asked for antibiotic for tooth pain. Pt states I think i have a tooth infection and don't want it to go into my blood . Pt reports it's his front left upper tooth, but also reports several other teeth in varying stages of severe decay in back of mouth. Issue has been ongoing for approximately one month, has not seen a dentist in a while. Pt is afebrile and there is no noted drainage or bleeding in the affected area.
--- NOTE | 2023-04-22 04:55 | PC.NURSE ---
Pt OOB and ambulated to the bathroom independently without assistance. Asked for a peanut butter and jelly sandwich then returned to his room. Pt is calm and cooperative.
--- NOTE | 2023-04-22 05:39 | PC.NURSE ---
Pt is sleeping in bed, appears comfortable. Changes positions independently as desired. Verbalizes needs. Pt is easily arousable with verbal stimuli. Will continue to monitor and note any changes. Regular safety check will continue. Bed search is ongoing.
--- NOTE | 2023-04-22 06:12 | PC.NURSE ---
Refused vital signs
--- NOTE | 2023-04-22 08:40 | PC.NURSE ---
ASSUMED CARE OF THIS PT, PT IS SLEEPING AT THIS TIME, RESP EVEN, NONLABOURED.
[2023-04-22] MEDS: Acetaminophen 325 MG TABLET 650 MG PO (10:49)
[2023-04-22 10:52] VITALS: BP 111/75; PULSE 78; RESP 16; TEMP 38.3; O2SAT 98
[2023-04-22 11:07] LABS: COVID-19 Test Positive (Negative); IDNOW Serial# 152EDE1D
--- NOTE | 2023-04-22 11:11 | PC.NURSE ---
PT ENDORSING GENERAL MYALGIAS, DRY COUGH, FEBRILE. COVID +. LS CLEAR THROUGHOUT. PRECAUTIONS IN PLACE, MASK ENCOURAGED. PT AGREEABLE, COOPERATIVE AT THIS TIME. REMAINS A VOL BED SEARCH.
[2023-04-22 11:15] LABS: IDNOW Serial# 08D9AD1C; Influenza A Negative (Negative); Influenza B2 Negative (Negative)
--- NOTE | 2023-04-22 11:20 | MHC.CARE ---
Pod nurse informed CARE team that the pt requested to be DC. Nurse will initiate DC. CARE team will send an alert for [facility].
[2023-04-22 12:06] VITALS: TEMP 37.3
[2023-04-22] MEDS: Ibuprofen 600 MG TABLET PO (16:08)
[2023-04-22 18:27] VITALS: BP 102/51; PULSE 70; RESP 16; TEMP 37.4; O2SAT 95
[2023-04-23 06:50] VITALS: BP 117/65; PULSE 58; RESP 14; TEMP 37.3; O2SAT 97
--- NOTE | 2023-04-23 12:03 | PC.NURSE ---
Assumed care of patient at 1100, patient appears to be sleeping, respirations even and unlabored, no apparent distress noted. During morning rounds Marely GENERAL SERVICE TECHNICIAN was asked to check in with patient. Continue plan of care for voluntary admission at this time
[2023-04-23 13:46] LABS: COVID-19 Test Positive (Negative); IDNOW Serial# 152EDE1D
--- NOTE | 2023-04-23 14:32 | MHC.CARE ---
Pt has been here as a voluntary bedsearch (no section 12). Pt has not been placed, in large part due to covid+. Based on current presentation and past CARE Team interventions, there does not appear to be a strong case for IPLOC. Pt requested to speak with the CARE Team through her nurse, stating she no longer wants the voluntary inpt admission and would like to be discharged. Pt complains of covid symptoms, but denies any plan or intent to harm herself or others. CARE Team discusses discharge with Dr. Caban, who agrees to discharge this patient to the community. Pt will be given a patient resource booklet at discharge.
== END 2023-04-23 15:38 | disposition home or self-care (01) ==
PROVIDERS: Physician Assistant; Emergency Provider Internal Medicine
DX: R44.0 Auditory hallucinations (principal); R45.851 Suicidal ideations; U07.1 COVID-19; F31.9 Bipolar disorder, unspecified; F64.0 Transsexualism; F60.9 Personality disorder, unspecified; Z91.148 Patient's other noncompliance with medication regimen for other reason
CPT/HCPCS: 36415; 80053; 80307; 81003; 85025; 87502; 87635; 99285; S9485

== ENCOUNTER 2023-05-01 01:57 | Emergency (ER) | payer MEDICAID, SELFPAY ==
[2023-05-01 02:03] VITALS: BP 121/48; PULSE 69; RESP 16; TEMP 37.2; O2SAT 98; BMI 25.1
[2023-05-01 02:49] LABS: Appearance Urine Clear; Color Urine Yellow; Glucose Urine UA Negative (Negative); Leukocyte Esterase Urine Negative (Negative); Nitrite Urine Negative (Negative); PH 6.5 (5.0-9.0); Specific Gravity - Urine 1.025 (1.005-1.025); Urine Blood Negative (Negative); Urine Ketones Negative (Negative); Urine Protein Negative (Neg-Trace)
[2023-05-01 02:55] LABS: Bacteria Urine None Seen (None Seen); Hyaline Casts Urine 0-2 /LPF (0-2); RBC Urine 0-2 /HPF (0-2); WBC Urine 0-5 /HPF (0-5)
[2023-05-01 02:58] LABS: Amphetamine Screen Urine Not Detected (Not Detect); Barbiturates, Urine Not Detected (Not Detect); Benzodiazepines Screen Urine Not Detected (Not Detect); Cannabinoid Screen Urine Not Detected (Not Detect); Cocaine Screen Urine POSITIVE (Not Detect); Fentanyl, urine Not Detected (Not Detect); Opiate Screen Urine Not Detected (Not Detect); Phencyclidine Screen Urine Not Detected (Not Detect)
--- NOTE | 2023-05-01 06:09 | ED.PSYCH ---
HPI - Psych General Chief Complaint: Psychiatric Symptoms Stated Complaint: crisis/tooth pain Time Seen by Provider: 05/01/23 03:55 Source: patient Mode of arrival: ambulatory History of Present Illness HPI Narrative: 48-year-old patient who presents with complaints of suicidal ideation, also reports toothache with a loose tooth. Related Data Home Medications Medication Instructions Recorded Confirmed No Known Home Meds 04/21/23 04/21/23 Allergies Allergy/AdvReac Type Severity Reaction Status Date / Time nicotine [From NICODERM CQ] Allergy Mild SHORTNESS Verified 05/01/23 02:05 OF BREATH ketchup [KETCHUP] Allergy Unknown RASH Verified 05/01/23 02:05 onion [ONION] Allergy Unknown RASH Verified 05/01/23 02:05 tomato [TOMATO] Allergy Unknown RASH Verified 05/01/23 02:05 Review of Systems Review of Systems: Pertinent positives and negatives as stated in HPI PMFSH Past Medical History Source: nursing notes reviewed Medical History Transgender Personality disorder Bipolar 1 disorder Social History Social History Alcohol intake: current Alcohol intake frequency: 3 or more drinks per day Alcohol type: hard liquor Patient Tobacco Use Status: Never used Tobacco Substance Use Type: Crack/Cocaine and Marijuana Advance Directives: No Advance Directives Information Provided: No Physical Exam Vital Signs: Vital Signs: Last Vital Signs Temp 98.9 F 05/01/23 02:03 Pulse 69 05/01/23 02:03 Resp 16 05/01/23 02:03 BP 121/48 L 05/01/23 02:03 Pulse Ox 98 05/01/23 02:03 O2 Del Method Room Air 05/01/23 02:03 BMI result Body Mass Index 25.1 VITAL SIGNS: Reviewed. GENERAL: Well developed, well nourished, in no acute distress. HEAD: Normocephalic/atraumatic EYES: PERRLA, EOMI EARS: Ext canals without abnormality NOSE: Nares patent bilateral OROPHARYNX: no oral lesions noted, posterior pharynx clear, poor dentition, left front tooth is very mobile NECK: Supple, no adenopathy LUNGS: Normal breath sounds. No adventitious sounds or accessory muscle use. SpO2<98> CARDIOVASCULAR: Regular rate and rhythm without noted murmurs ABDOMEN: Soft, non-tender, non-distended with bowel sounds. MUSCULOSKELETAL: No tenderness, deformities, or effusions noted on gross inspection. EXTREMITIES: No cyanosis, clubbing or edema. SKIN: Inspection of the skin reveals no rashes NEUROLOGIC: Alert and oriented x 4. Strength and sensation to light touch were grossly intact x 4, cranial nerves 2-12 are grossly intact. Medical Decision Making Medical Decision Making MDM Narrative: 48-year-old patient with history and clinical presentation, DDX: Acute on chronic suicidal ideation/depression, cocaine abuse, multiple dental caries with complaints of specific dental pain at the left front tooth. Will provide antibiotics. Patient placed in physician observation because the patient needed more time for medical clearance and evaluation by the care team.. At the time observation was started the patient's vital signs were stable, patient is alert and oriented, neuro: Nonfocal, CV RRR, lungs clear Medical clearance signed out to Dr Barlow. Patient started on clindamycin for tooth infection. Differential Diagnosis Differential Diagnoses: The differential diagnosis associated with the presentation includes Please see the discussion above Admission/Observation Consideration of admission/observation: Escalation of care including admission/observation considered Please see they discussion above Consult Healthcare Provider Management of the patient was discussed with: Manager Camp Please see the discussion above Lab Data Labs: Lab Results 05/01/23 Range/Units 02:39 Urine Color Yellow Urine Appearance Clear Urine pH 6.5 (5.0-9.0) Ur Specific [place] 1.025 (1.005-1.025) Urine Protein Negative (Neg-Trace) mg/dL Urine Glucose (UA) Negative (Negative) mg/dL Urine Ketones Negative (Negative) mg/dL Urine Blood Negative (Negative) Urine Nitrite Negative (Negative) Ur Leukocyte Esterase Negative (Negative) Urine RBC 0-2 (0-2) /HPF Urine WBC 0-5 (0-5) /HPF Ur Squamous Epith Cells 3-5 (0-2) /HPF Urine Bacteria None Seen (None Seen) Hyaline Casts 0-2 (0-2) /LPF Urine Opiates Screen Not Detected (Not Detect) Urine Fentanyl Screen Not Detected (Not Detect) Ur Barbiturates Screen Not Detected (Not Detect) Ur Phencyclidine Scrn Not Detected (Not Detect) Ur Amphetamines Screen Not Detected (Not Detect) U Benzodiazepines Scrn Not Detected (Not Detect) Urine Cocaine Screen POSITIVE H (Not Detect) U Marijuana (THC) Screen Not Detected (Not Detect) Discharge Plan Discharge Clinical Impression: Infected tooth, Suicidal ideation Patient Disposition: Still a Patient Prescriptions: No Action No Known Home Meds
[2023-05-01] MEDS: Clindamycin HCL 300 MG CAPSULE PO (06:25)
[2023-05-01 06:30] LABS: MANUAL DIFF FLAG NO
[2023-05-01 06:31] LABS: Basophils Absolute Auto 0.1 X10*3/uL (0.0-0.2); Basophils Percent Auto 0.4 % (0-2); Eosinophils Absolute Auto 0.1 X10*3/uL (0.0-0.4); Hematocrit 37.8 % (42.0-52.0); Hemoglobin 13.2 g/dl (14.0-18.0); Imm Gran Abs Auto 0.04 X10*3/uL (0.00-0.03); Imm Gran Pct Auto 0.3 % (0.0-0.4); Lymphocytes Absolute Auto 2.8 X10*3/uL (1.2-4.9); Lymphocytes Percent Auto 22.4 % (20-40); Mean Corpuscular HGB Conc 34.9 g/dl (31.0-36.0); Mean Corpuscular Hemoglobin 30.6 pg (27.0-33.0); Mean Corpuscular Volume 87.5 fL (80.0-98.0); Mean Platelet Volume 10.1 fL (9.4-12.4); Monocytes Absolute Auto 1.3 X10*3/uL (0.1-1.2); Monocytes Percent Auto 9.9 % (2-11); Neutrophils Absolute Auto 8.4 x10*3/uL (2.0-8.3); Platelet Count 251 X10*3/uL (160-400); Red Blood Count 4.32 X10*6/uL (4.60-5.80); Red Cell Distribution Width 12.2 % (11.0-16.0); White Blood Count 12.7 X10*3/uL (4.8-10.8)
[2023-05-01 06:45] LABS: COVID-19 Test Negative (Negative); IDNOW Serial# 152EDE1D
[2023-05-01 06:48] LABS: Alanine Aminotransferase 15 U/L (0-40); Albumin Level 3.7 g/dL (3.5-5.0); Alkaline Phosphatase 64 U/L (39-117); Anion Gap 11 (12-20); Aspartate Amino Transferase 18 U/L (5-37); Bilirubin Total 1.1 mg/dL (0.0-1.0); Blood Urea Nitrogen 21 mg/dL (9-16); Calcium 9.2 mg/dL (8.4-10.2); Carbon Dioxide 25 mmol/L (22-29); Chloride 107 mmol/L (96-108); Creatinine Clr Calc Pharmacy 121.5; Estimated Glomerular Filt Rate > 60; Glucose Random 116 mg/dL (60-115); Potassium 3.6 mmol/L (3.3-5.1); Sodium 139 mmol/L (135-145); Total Protein 6.5 g/dL (6.5-8.0)
--- NOTE | 2023-05-01 09:14 | PC.NURSE ---
Ashley was in bed for most of the morning. Advocating to be allowed to sleep for the day before discharge. Clinician met with client and Ashley is advocating to be transferred to respite, Ashley discharged and LYFT provided.
== END 2023-05-01 09:17 | disposition home or self-care (01) ==
PROVIDERS: Student in an Organized Health Care Education/Training Program; Emergency Provider Emergency Medicine Emergency Medical Services
DX: F33.1 Major depressive disorder, recurrent, moderate (principal); K04.7 Periapical abscess without sinus; R45.851 Suicidal ideations; F14.10 Cocaine abuse, uncomplicated; Z11.52 Encounter for screening for COVID-19; Z79.899 Other long term (current) drug therapy
CPT/HCPCS: 36415; 80053; 80307; 81001; 85025; 87635; 99283; 99284; S9485

== ENCOUNTER 2023-05-22 00:18 | Emergency (ER) | payer MEDICAID, SELFPAY ==
[2023-05-22 00:21] VITALS: BP 132/78; PULSE 64; RESP 16; TEMP 35.9; O2SAT 96; BMI 25.1
--- NOTE | 2023-05-22 00:48 | ED.PSYCH ---
HPI - Psych General Chief Complaint: Psychiatric Symptoms Stated Complaint: SI Time Seen by Provider: 05/22/23 00:41 Source: patient Mode of arrival: ambulatory Limitations: no limitations History of Present Illness HPI Narrative: Patient is a 48-year-old who assigned male at , now female, presents to emergency department reports of suicidal ideations without plan. experiencing worsening suicidal thoughts without predisposing factor and presents for evaluation. Denies any physical complaints at this time. Denies any homicidal ideations. Denies any recreational drug or alcohol usage. Patient is under care plan by care team. Working diagnosis is antisocial personality disorder, had previous ED visits endorsing suicidal ideation which is commonly by self inflicted Ashley valdez often seeking admission to respite program usually not compliant with medication and has a poor follow-up with her appointments. Related Data Previous Rx's Medication Instructions Recorded clindamycin HCl 300 mg capsule 300 mg PO TID 7 days #21 caps 05/01/23 Allergies Allergy/AdvReac Type Severity Reaction Status Date / Time nicotine [From NICODERM CQ] Allergy Mild SHORTNESS Verified 05/22/23 00:21 OF BREATH ketchup [KETCHUP] Allergy Unknown RASH Verified 05/22/23 00:21 onion [ONION] Allergy Unknown RASH Verified 05/22/23 00:21 tomato [TOMATO] Allergy Unknown RASH Verified 05/22/23 00:21 Review of Systems Review of Systems: All other systems are reviewed and are negative Constitutional: Reports as per HPI and Reports no additional constitutional complaints Eyes: Reports as per HPI and Reports no additional eye complaints Reports system reviewed and no additional complaints, except as documented Cardiovascular: Reports as per HPI and Reports no additional cardiovascular complaints Respiratory: Reports as per HPI and Reports no additional respiratory complaints Gastrointestinal: Reports as per HPI and Reports no additional gastrointestinal complaints Genitourinary: Reports no additional female genitourinary complaints Musculoskeletal: Reports no additional musculoskeletal complaints Skin/Breast: Reports system reviewed and no additional complaints, except as docu Psychiatric: Reports no additional psychiatric complaints Endocrine: Reports no additional endocrine complaints Hematologic/Lymphatic: Reports no additional hematologic/lymphatic complaints Allergic/Immunologic: Reports no additional allergic/immunologic complaints Reports system reviewed and no additional complaints, except as documented and Reports Abnormal speech present [facility] Past Medical History Medical History Transgender Personality disorder Bipolar 1 disorder Social History Social History Alcohol intake: never Patient Tobacco Use Status: Never used Tobacco Smoked in Last 30 Days: No Use of substances other than those prescribed or required for medical reasons: No Substance Use Type: Crack/Cocaine and Marijuana Advance Directives: No Advance Directives Information Provided: Yes Physical Exam Vital Signs: Vital Signs: Last Vital Signs Temp 98.7 F 05/22/23 01:29 Pulse 87 05/22/23 01:29 Resp 16 05/22/23 01:29 BP 105/63 05/22/23 01:29 Pulse Ox 97 05/22/23 01:29 O2 Del Method Room Air 05/22/23 01:29 BMI result Body Mass Index 25.1 Vital signs have been reviewed and appear to be correct. Blood pressure elevated. Heart rate normal. Respiratory rate normal. Temperature normal. Oxygen saturation normal. Appearance: Alert. Oriented X3. No acute distress. Head: Normal external exam. Normocephalic. Atraumatic. No [place] signs noted. No raccoon eyes noted Eyes: PERRLA. EOMI. Conjunctiva and sclera normal. Eyelids normal. ENT: TM's Normal. Pharynx normal. Uvula midline. Moist mucous membranes. No trismus noted. No drooling noted. No muffled voice noted. Neck: Normal inspection. Neck supple. FROM. No adenopathy. Thyroid Normal. No meningeal signs. No neck mass noted. CVS: Normal heart rate and rhythm. Heart sound normal. No murmurs noted. Pulses normal throughout. Respiratory: No respiratory distress. Painless inspiration. Breath sounds normal. No wheezes/rales/rhonchi noted. Chest nontender. No accessory muscle usage noted or decreased air movement noted. Abdomen: Soft and nontender. Bowel sounds normal in all 4 quadrants. No distention noted. No organomegaly noted. No visible injury noted. Back: No CVA tenderness. Full range of motion noted. Skin: Skin warm and dry. Normal skin color. Normal skin turgor. No rashes/lesions/lacerations noted. Extremities: No lower extremity edema. Extremities exhibit normal range of motion. Extremities nontender. Neuro: Oriented X 3. Cranial nerve exam: II-XII are grossly intact No motor deficit. No sensory deficit. Reflexes normal. Patient Orientation: Person, Place, Time and Situation, okay hygiene and grooming. Fair eye contact, attentive, no tics or tremors. Level of Consciousness: Awake, Appropriate and Alert Patient Behavior: Appropriate, Guarded, Cooperative and Anxious Mood Description: Constricted, Blunted and Apprehensive Affect Description: Constricted, Blunted and Apprehensive Patient Cognition Impaired: No Ability to Follow Directions: Excellent Speech Pattern: Clear, Appropriate and Spontaneous Speech, nonpressured, spontaneous with regular rate and rhythm, normal volume and prosody. No dysarthria. Memory Description: Intact, Immediate Intact and Short Term Intact Hallucinations: None Delusions: Not Present Thought Process: Intact Thought Content: positive for Intact, positive for Logical, suicidal ideation with no plan, denies Homicidal Ideation. Depressive Symptoms: Not present. Judgement and Insight: Limited but adequate. Course Reevaluation(s) Reevaluation #1: Start on physician observation, medically cleared, replete potassium. Time: 03:16 Medical Decision Making Differential Diagnosis Differential Diagnoses: The differential diagnosis associated with the presentation includes (Acute psychosis, depression, SI, medical clearance.) Admission/Observation Consideration of admission/observation: Escalation of care including admission/observation considered Lab Data MDM Lab Attestation statement: I reviewed the patient's lab results. 05/22/23 01:16 05/22/23 01:16 Labs: Lab Results 05/22/23 Range/Units 01:16 WBC 8.4 (4.8-10.8) X10*3/uL RBC 4.44 L (4.60-5.80) X10*6/uL Hgb 13.6 L (14.0-18.0) g/dl Hct 39.3 L (42.0-52.0) % MCV 88.5 (80.0-98.0) fL MCH 30.6 (27.0-33.0) pg MCHC 34.6 (31.0-36.0) g/dl RDW 12.7 (11.0-16.0) % Plt Count 234 (160-400) X10*3/uL MPV 10.1 (9.4-12.4) fL Immature Gran % (Auto) 0.4 (0.0-0.4) % Neut % (Auto) 53.6 (45-73) % Lymph % (Auto) 35.0 (20-40) % [place] % (Auto) 8.4 (2-11) % Eos % (Auto) 1.9 (0-4) % Baso % (Auto) 0.7 (0-2) % Lymph # (Auto) 2.9 (1.2-4.9) X10*3/uL [place] # (Auto) 0.7 (0.1-1.2) X10*3/uL Eos # (Auto) 0.2 (0.0-0.4) X10*3/uL Baso # (Auto) 0.1 (0.0-0.2) X10*3/uL Abs Immat Gran (auto) 0.03 (0.00-0.03) X10*3/uL Absolute Neuts (auto) 4.5 (2.0-8.3) x10*3/uL Absolute Nucleated RBC 0.000 (0.0-0.012) X10*3/uL Nucleated RBC % (auto) 0.0 (0.0-0.2) /100WBC Sodium 140 (135-145) mmol/L Potassium 3.2 L (3.3-5.1) mmol/L Chloride 109 H (96-108) mmol/L Carbon Dioxide 21 L (22-29) mmol/L Anion Gap 13 (12-20) BUN 17 H (9-16) mg/dL Creatinine 0.73 (0.5-1.4) mg/dL Estim Creat Clear Calc 133.2 Estimated GFR > 60 Random Glucose 85 (60-115) mg/dL Calcium 8.7 (8.4-10.2) mg/dL Total Bilirubin 1.0 (0.0-1.0) mg/dL AST 23 (5-37) U/L ALT 19 (0-40) U/L Alkaline Phosphatase 66 (39-117) U/L Total Protein 6.5 (6.5-8.0) g/dL Albumin 3.7 (3.5-5.0) g/dL Ethyl Alcohol < 10 mg/dL Discharge Plan Discharge Clinical Impression: Suicidal ideation, Acute hypokalemia Patient Disposition: Home, Self-Care Instructions: Suicide Prevention (ED) Prescriptions: No Action clindamycin HCl 300 mg capsule 300 mg PO TID 7 Days Qty: 21 0RF Interventions: [place]-Suicide Risk Severity Scale Last Done: 05/22/23 01:23
[2023-05-22 01:21] LABS: Basophils Absolute Auto 0.1 X10*3/uL (0.0-0.2); Basophils Percent Auto 0.7 % (0-2); Eosinophils Absolute Auto 0.2 X10*3/uL (0.0-0.4); Eosinophils Percent Auto 1.9 % (0-4); Hematocrit 39.3 % (42.0-52.0); Hemoglobin 13.6 g/dl (14.0-18.0); Imm Gran Abs Auto 0.03 X10*3/uL (0.00-0.03); Imm Gran Pct Auto 0.4 % (0.0-0.4); Lymphocytes Absolute Auto 2.9 X10*3/uL (1.2-4.9); MANUAL DIFF FLAG NO; Mean Corpuscular HGB Conc 34.6 g/dl (31.0-36.0); Mean Corpuscular Hemoglobin 30.6 pg (27.0-33.0); Mean Corpuscular Volume 88.5 fL (80.0-98.0); Mean Platelet Volume 10.1 fL (9.4-12.4); Monocytes Absolute Auto 0.7 X10*3/uL (0.1-1.2); Monocytes Percent Auto 8.4 % (2-11); Neutrophils Absolute Auto 4.5 x10*3/uL (2.0-8.3); Neutrophils Percent Auto 53.6 % (45-73); Platelet Count 234 X10*3/uL (160-400); Red Blood Count 4.44 X10*6/uL (4.60-5.80); Red Cell Distribution Width 12.7 % (11.0-16.0); White Blood Count 8.4 X10*3/uL (4.8-10.8)
[2023-05-22 01:29] VITALS: BP 105/63; PULSE 87; RESP 16; TEMP 37.1; O2SAT 97
[2023-05-22 01:37] LABS: Alanine Aminotransferase 19 U/L (0-40); Albumin Level 3.7 g/dL (3.5-5.0); Alkaline Phosphatase 66 U/L (39-117); Anion Gap 13 (12-20); Aspartate Amino Transferase 23 U/L (5-37); Blood Urea Nitrogen 17 mg/dL (9-16); Calcium 8.7 mg/dL (8.4-10.2); Carbon Dioxide 21 mmol/L (22-29); Chloride 109 mmol/L (96-108); Creatinine Clr Calc Pharmacy 133.2; Estimated Glomerular Filt Rate > 60; Ethanol < 10 mg/dL; Glucose Random 85 mg/dL (60-115); Potassium 3.2 mmol/L (3.3-5.1); Sodium 140 mmol/L (135-145); Total Protein 6.5 g/dL (6.5-8.0)
--- NOTE | 2023-05-22 01:51 | PC.NURSE ---
Patient presenting to ED for evaluation of SI without plan and without predisposing factors, patient denies HI, denies use of recreational drugs or ETOH usage. Patient is alert and oriented to self, place, unable to state current date. Patient denies any pain, VSS. Patient changed into a behavioral pod attire with assistance of security. Labs drawn per MD orders, patient provided cheese stick with chips, saltine crackers, and kathie deshawn, tolerated well. 1:1 sitter at bedside.
--- NOTE | 2023-05-22 02:49 | PC.NURSE ---
Patient resting in a stretcher bed, eyes closed, even and unlabored respirations, not in distress. 1:1 sitter at bedside.
[2023-05-22] MEDS: Potassium Chloride Packet 20 MEQ PACKET 40 MEQ PO (03:32)
--- NOTE | 2023-05-22 08:27 | PC.NURSE ---
Pt continues to rest in bed, breathing even and unlabored
[2023-05-22 08:37] VITALS: BP 102/48; PULSE 53; RESP 16; O2SAT 97
--- NOTE | 2023-05-22 09:25 | PC.NURSE ---
refusing repeat KCL level to be drawn
[2023-05-22 12:24] VITALS: RESP 16
[2023-05-22] MEDS: Potassium Chloride ER 20 MEQ TAB.ER.PRT PO (12:51)
== END 2023-05-22 13:15 | disposition home or self-care (01) ==
PROVIDERS: Emergency Provider Emergency Medicine
DX: F33.1 Major depressive disorder, recurrent, moderate (principal); R45.851 Suicidal ideations; Z79.899 Other long term (current) drug therapy
CPT/HCPCS: 36415; 80053; 80307; 85025; 99284; 99285; S9485

== ENCOUNTER 2023-05-25 02:55 | Emergency (ER) | payer MEDICAID, SELFPAY ==
[2023-05-25 03:02] VITALS: BP 115/61; PULSE 66; RESP 20; TEMP 36.7; O2SAT 98; BMI 25.1
[2023-05-25 03:15] LABS: MANUAL DIFF FLAG NO
[2023-05-25 03:16] LABS: Basophils Absolute Auto 0.1 X10*3/uL (0.0-0.2); Basophils Percent Auto 1.1 % (0-2); Eosinophils Absolute Auto 0.6 X10*3/uL (0.0-0.4); Eosinophils Percent Auto 5.4 % (0-4); Hematocrit 41.8 % (42.0-52.0); Hemoglobin 14.4 g/dl (14.0-18.0); Imm Gran Abs Auto 0.01 X10*3/uL (0.00-0.03); Imm Gran Pct Auto 0.1 % (0.0-0.4); Lymphocytes Absolute Auto 3.7 X10*3/uL (1.2-4.9); Lymphocytes Percent Auto 35.8 % (20-40); Mean Corpuscular HGB Conc 34.4 g/dl (31.0-36.0); Mean Corpuscular Hemoglobin 30.3 pg (27.0-33.0); Mean Platelet Volume 10.1 fL (9.4-12.4); Monocytes Percent Auto 9.1 % (2-11); Neutrophils Absolute Auto 5.1 x10*3/uL (2.0-8.3); Neutrophils Percent Auto 48.5 % (45-73); Platelet Count 275 X10*3/uL (160-400); Red Blood Count 4.75 X10*6/uL (4.60-5.80); Red Cell Distribution Width 12.8 % (11.0-16.0); White Blood Count 10.4 X10*3/uL (4.8-10.8)
[2023-05-25 03:37] LABS: Alanine Aminotransferase 16 U/L (0-40); Albumin Level 3.8 g/dL (3.5-5.0); Alkaline Phosphatase 81 U/L (39-117); Anion Gap 13 (12-20); Aspartate Amino Transferase 18 U/L (5-37); Bilirubin Total 0.8 mg/dL (0.0-1.0); Blood Urea Nitrogen 17 mg/dL (9-16); Calcium 8.8 mg/dL (8.4-10.2); Carbon Dioxide 24 mmol/L (22-29); Chloride 110 mmol/L (96-108); Creatinine Clr Calc Pharmacy 117.1; Estimated Glomerular Filt Rate > 60; Ethanol < 10 mg/dL; Glucose Random 109 mg/dL (60-115); Potassium 3.3 mmol/L (3.3-5.1); Sodium 144 mmol/L (135-145); Total Protein 6.9 g/dL (6.5-8.0)
[2023-05-25 03:41] LABS: Amphetamine Screen Urine Not Detected (Not Detect); Barbiturates, Urine Not Detected (Not Detect); Benzodiazepines Screen Urine Not Detected (Not Detect); Cannabinoid Screen Urine Not Detected (Not Detect); Cocaine Screen Urine POSITIVE (Not Detect); Fentanyl, urine Not Detected (Not Detect); Opiate Screen Urine Not Detected (Not Detect); Phencyclidine Screen Urine Not Detected (Not Detect)
--- NOTE | 2023-05-25 03:42 | ED_ITS ---
HPI - Psych General Chief Complaint: Psychiatric Symptoms Stated Complaint: SI Time Seen by Provider: 05/25/23 03:39 Source: patient Mode of arrival: ambulatory Limitations: no limitations History of Present Illness HPI Narrative: Patient comes in the emergency room complaining of suicidal ideation for 1 week. Patient has been evaluated at this facility multiple times for similar complaints. Related Data Home Medications Medication Instructions Recorded Confirmed No Known Home Meds 05/25/23 05/25/23 Allergies Allergy/AdvReac Type Severity Reaction Status Date / Time nicotine [From NICODERM CQ] Allergy Mild SHORTNESS Verified 05/22/23 00:21 OF BREATH ketchup [KETCHUP] Allergy Unknown RASH Verified 05/22/23 00:21 onion [ONION] Allergy Unknown RASH Verified 05/22/23 00:21 tomato [TOMATO] Allergy Unknown RASH Verified 05/22/23 00:21 Review of Systems 2 Review of Systems: Constitutional : No Weight loss, No Fever, No Chills, No Night Sweats, No Fatigue, No Malaise ENT/Mouth : No Hearing loss, No Ear Pain, No Nasal Congestion, No Sinus Pain, No Hoarseness, No sore throat, No Rhinorrhea, No Swallowing Difficulty Eyes: No Eye Pain, No Swelling, No Redness, No Foreign Body, No Discharge, No Vision Changes Cardiovascular : No Chest Pain, No SOB, No Dyspnea on Exertion, No Orthopnea, No Edema, No Palpitations Respiratory : No Cough, No Sputum, No Wheezing, No Smoke Exposure, No Dyspnea Gastrointestinal : No Nausea, No Vomiting, No Diarrhea, No Constipation, No abdominal Pain, No Hematochezia, No Melena Genitourinary : no irregular bleeding, No Dysuria, No Urinary Frequency, No Hematuria, No Urinary Incontinence, No Urgency, No Flank Pain, No Urinary Flow Changes, No Hesitancy Musculoskeletal : No joint pain, No Myalgias, No Joint Swelling Skin : No Skin Lesions, No rash Neuro : No Weakness, No Numbness, No Paresthesias, No Loss of Consciousness, No Dizziness, No Headache Psych : No anxiety, complaining of SI, Heme/Lymph: No Bruising, No Bleeding,No Lymphadenopathy Endocrine : No Polyuria, No Polydipsia, No Temperature Intolerance PMFSH Past Medical History Medical History Transgender Personality disorder Bipolar 1 disorder Social History Social History Alcohol intake: never Patient Tobacco Use Status: Never used Tobacco Substance Use Type: Crack/Cocaine and Marijuana Advance Directives: No Advance Directives Information Provided: Yes Physical Exam 2 Vital Signs: Vital Signs: Last Vital Signs Temp 98.0 F 05/25/23 03:02 Pulse 66 05/25/23 03:02 Resp 20 05/25/23 03:02 BP 115/61 05/25/23 03:02 Pulse Ox 98 05/25/23 03:02 O2 Del Method Room Air 05/25/23 03:02 BMI result Body Mass Index 25.1 Const: Other: Appearance: Alert. Oriented X3. No acute distress. Eyes: Pupils equal, round and reactive to light. ENT: Pharynx normal. Neck: Normal inspection. Neck supple. No lymph nodes noted. No crepitus CVS: Normal heart rate and rhythm. Pulses normal. Normal S1 and S2 Respiratory: No respiratory distress. Breath sounds normal. No Wheezing. No rales Abdomen: Soft and nontender. No rigidity. No distention. Skin: Skin warm and dry. Normal skin color. Normal skin turgor. Extremities: No lower extremity edema. No Lacerations. No Rash Neuro: Oriented X 3. No motor deficit. No sensory deficit. Moving all extremities. No slurred speech. CN 2 through 12 grossly intact Psych: calm, cooperative, normal affect Medical Decision Making Medical Decision Making [facility] Narrative: My interpretation of labs: Hematology and chemistry at baseline, toxicology positive for cocaine -care team evaluated the patient: Patient will remain until the morning and then she will get a ride to respite -physician observation started at 03:50 Differential Diagnosis Differential Diagnoses: The differential diagnosis associated with the presentation includes (Anxiety, depression, polysubstance abuse) Admission/Observation Consideration of admission/observation: Escalation of care including admission/observation considered (Patient is under physician observation, patient will be taken to respite in the morning) Lab Data [facility] Lab Attestation statement: I reviewed the patient's lab results. 05/25/23 03:08 05/25/23 03:08 Labs: Lab Results 05/25/23 05/25/23 Range/Units 03:08 03:23 WBC 10.4 (4.8-10.8) X10*3/uL RBC 4.75 (4.60-5.80) X10*6/uL Hgb 14.4 (14.0-18.0) g/dl Hct 41.8 L (42.0-52.0) % MCV 88.0 (80.0-98.0) fL MCH 30.3 (27.0-33.0) pg MCHC 34.4 (31.0-36.0) g/dl RDW 12.8 (11.0-16.0) % Plt Count 275 (160-400) X10*3/uL MPV 10.1 (9.4-12.4) fL Immature Gran % (Auto) 0.1 (0.0-0.4) % Neut % (Auto) 48.5 (45-73) % Lymph % (Auto) 35.8 (20-40) % [place] % (Auto) 9.1 (2-11) % Eos % (Auto) 5.4 H (0-4) % Baso % (Auto) 1.1 (0-2) % Lymph # (Auto) 3.7 (1.2-4.9) X10*3/uL [place] # (Auto) 1.0 (0.1-1.2) X10*3/uL Eos # (Auto) 0.6 H (0.0-0.4) X10*3/uL Baso # (Auto) 0.1 (0.0-0.2) X10*3/uL Abs Immat Gran (auto) 0.01 (0.00-0.03) X10*3/uL Absolute Neuts (auto) 5.1 (2.0-8.3) x10*3/uL Absolute Nucleated RBC 0.000 (0.0-0.012) X10*3/uL Nucleated RBC % (auto) 0.0 (0.0-0.2) /100WBC Sodium 144 (135-145) mmol/L Potassium 3.3 (3.3-5.1) mmol/L Chloride 110 H (96-108) mmol/L Carbon Dioxide 24 (22-29) mmol/L Anion Gap 13 (12-20) BUN 17 H (9-16) mg/dL Creatinine 0.83 (0.5-1.4) mg/dL Estim Creat Clear Calc 117.1 Estimated GFR > 60 Random Glucose 109 (60-115) mg/dL Calcium 8.8 (8.4-10.2) mg/dL Total Bilirubin 0.8 (0.0-1.0) mg/dL AST 18 (5-37) U/L ALT 16 (0-40) U/L Alkaline Phosphatase 81 (39-117) U/L Total Protein 6.9 (6.5-8.0) g/dL Albumin 3.8 (3.5-5.0) g/dL Urine Opiates Screen Not Detected (Not Detect) Urine Fentanyl Screen Not Detected (Not Detect) Ur Barbiturates Screen Not Detected (Not Detect) Ur Phencyclidine Scrn Not Detected (Not Detect) Ur Amphetamines Screen Not Detected (Not Detect) U Benzodiazepines Scrn Not Detected (Not Detect) Urine Cocaine Screen POSITIVE H (Not Detect) U Marijuana (THC) Screen Not Detected (Not Detect) Ethyl Alcohol < 10 mg/dL Critical Care Time Critical Care Time Critical Care Time: Yes Total Critical Care Time: 30 Attestation: I have personally provided critical care time. Time includes review of lab data, radiology results, discussion with consultants, and monitoring for potential decompensation. Intervention performed as documented. Discharge Plan Discharge Clinical Impression: Bipolar disorder Patient Disposition: Home, Self-Care Instructions: Bipolar Disorder (ED) Additional Instructions: Please report to respite. Please follow-up with your primary care physician tomorrow. If you have any worsening or new symptoms, please return to the emergency room or call 911 Prescriptions: No Action No Known Home Meds
[2023-05-25 06:07] VITALS: RESP 16
== END 2023-05-25 08:51 | disposition home or self-care (01) ==
PROVIDERS: Emergency Provider Emergency Medicine
DX: F31.9 Bipolar disorder, unspecified (principal); R45.851 Suicidal ideations; F14.929 Cocaine use, unspecified with intoxication, unspecified
CPT/HCPCS: 36415; 80053; 80307; 85025; 99285; S9485

== ENCOUNTER 2023-07-06 00:59 | Emergency (ER) | payer MEDICAID, SELFPAY ==
[2023-07-06 01:06] VITALS: BP 122/71; PULSE 84; RESP 18; TEMP 36.6; O2SAT 98; BMI 27.9
[2023-07-06 01:41] LABS: Basophils Absolute Auto 0.1 X10*3/uL (0.0-0.2); Basophils Percent Auto 0.6 % (0-2); Eosinophils Absolute Auto 0.1 X10*3/uL (0.0-0.4); Eosinophils Percent Auto 1.1 % (0-4); Hemoglobin 14.4 g/dl (14.0-18.0); Imm Gran Abs Auto 0.03 X10*3/uL (0.00-0.03); Imm Gran Pct Auto 0.2 % (0.0-0.4); Lymphocytes Absolute Auto 2.1 X10*3/uL (1.2-4.9); Lymphocytes Percent Auto 16.4 % (20-40); MANUAL DIFF FLAG NO; Mean Corpuscular HGB Conc 35.1 g/dl (31.0-36.0); Mean Corpuscular Hemoglobin 30.8 pg (27.0-33.0); Mean Corpuscular Volume 87.8 fL (80.0-98.0); Mean Platelet Volume 10.7 fL (9.4-12.4); Monocytes Percent Auto 8.3 % (2-11); Neutrophils Absolute Auto 9.2 x10*3/uL (2.0-8.3); Neutrophils Percent Auto 73.4 % (45-73); Platelet Count 207 X10*3/uL (160-400); Red Blood Count 4.67 X10*6/uL (4.60-5.80); Red Cell Distribution Width 12.4 % (11.0-16.0); White Blood Count 12.5 X10*3/uL (4.8-10.8)
[2023-07-06 02:06] LABS: Alanine Aminotransferase 23 U/L (0-40); Alkaline Phosphatase 77 U/L (39-117); Anion Gap 12 (12-20); Aspartate Amino Transferase 24 U/L (5-37); Bilirubin Total 1.1 mg/dL (0.0-1.0); Blood Urea Nitrogen 14 mg/dL (9-16); Calcium 8.9 mg/dL (8.4-10.2); Carbon Dioxide 25 mmol/L (22-29); Chloride 107 mmol/L (96-108); Creatinine Clr Calc Pharmacy 148.2; Estimated Glomerular Filt Rate > 60; Glucose Random 96 mg/dL (60-115); Potassium 3.6 mmol/L (3.3-5.1); Sodium 140 mmol/L (135-145); Total Protein 7.1 g/dL (6.5-8.0)
[2023-07-06 03:14] LABS: Appearance Urine Clear; Color Urine Yellow; Glucose Urine UA Negative (Negative); Leukocyte Esterase Urine Negative (Negative); Nitrite Urine Negative (Negative); PH 5.5 (5.0-9.0); Urine Blood Negative (Negative); Urine Ketones Trace mg/dL (Negative); Urine Protein Negative (Neg-Trace)
[2023-07-06 03:18] LABS: Amphetamine Screen Urine Not Detected (Not Detect); Barbiturates, Urine Not Detected (Not Detect); Benzodiazepines Screen Urine Not Detected (Not Detect); Cannabinoid Screen Urine Not Detected (Not Detect); Cocaine Screen Urine POSITIVE (Not Detect); Fentanyl, urine Not Detected (Not Detect); Opiate Screen Urine Not Detected (Not Detect); Phencyclidine Screen Urine Not Detected (Not Detect)
[2023-07-06 03:19] LABS: Bacteria Urine None Seen (None Seen); Hyaline Casts Urine 0-2 /LPF (0-2); RBC Urine 0-2 /HPF (0-2); WBC Urine 0-5 /HPF (0-5)
--- NOTE | 2023-07-06 04:00 | ED.PSYCH ---
HPI - Psych General Chief Complaint: Psychiatric Symptoms Stated Complaint: si thoughts Time Seen by Provider: 07/06/23 02:27 Source: patient Mode of arrival: ambulatory Limitations: no limitations History of Present Illness HPI Narrative: Patient history of bipolar disorder just released from the long-term yesterday been here multiple times for suicidal ideation and depression comes here for similar complaints denies any plan history of suicidal attempt by cutting his wrist a few months ago Related Data Home Medications ?Medication ?Instructions ?Recorded ?Confirmed No Known Home Meds 05/25/23 05/25/23 Allergies Allergy/AdvReac Type Severity Reaction Status Date / Time nicotine [From NICODERM CQ] Allergy Mild SHORTNESS Verified 07/06/23 01:07 OF BREATH ketchup [KETCHUP] Allergy Unknown RASH Verified 07/06/23 01:07 onion [ONION] Allergy Unknown RASH Verified 07/06/23 01:07 tomato [TOMATO] Allergy Unknown RASH Verified 07/06/23 01:07 Review of Systems Review of Systems: Yes all other systems are reviewed and are negative [facility] Past Medical History Medical History Transgender Personality disorder Bipolar 1 disorder Social History Social History Alcohol intake: never Patient Tobacco Use Status: Never used Tobacco Substance Use Type: Crack/Cocaine and Marijuana Advance Directives: No Advance Directives Information Provided: Yes Physical Exam Vital Signs: Vital Signs: Last Vital Signs Temp 98 F 07/06/23 01:06 Pulse 84 07/06/23 01:06 Resp 18 07/06/23 01:06 BP 122/71 07/06/23 01:06 Pulse Ox 98 07/06/23 01:06 O2 Del Method Room Air 07/06/23 01:06 BMI result Body Mass Index 27.9 Appearance: Alert. Oriented X3. No acute distress. Eyes: PERRLA, No Nystagmus ENT: Pharynx normal. Oral Mucosa moist Neck: Normal inspection. Neck supple. CVS: Normal heart rate and rhythm. Pulses normal. Respiratory: No respiratory distress. Equal air entry bilateral, no wheezing/rales/rhonchi Abdomen: Soft and nontender. Bowel sounds are present, no mass palpable, no CVA tenderness Skin: Skin warm and dry. Normal skin color. Normal skin turgor. Extremities: No lower extremity edema. No calf tenderness psych: Says depressed denies any SI or HI at this time no hallucination or delusion Neuro: Oriented X 3. No motor deficit. No sensory deficit.No cerebellar signs , cranial nerves II-XII intact Medical Decision Making Medical Decision Making [facility] Narrative: Patient depression with SI feeling will get care team evaluation , been here multiple times for same Lab Data MDM Lab Attestation statement: I reviewed the patient's lab results. 07/06/23 01:36 07/06/23 01:36 Labs: Lab Results 07/06/23 07/06/23 Range/Units 01:36 02:53 WBC 12.5 H (4.8-10.8) X10*3/uL RBC 4.67 (4.60-5.80) X10*6/uL Hgb 14.4 (14.0-18.0) g/dl Hct 41.0 L (42.0-52.0) % MCV 87.8 (80.0-98.0) fL MCH 30.8 (27.0-33.0) pg MCHC 35.1 (31.0-36.0) g/dl RDW 12.4 (11.0-16.0) % Plt Count 207 (160-400) X10*3/uL MPV 10.7 (9.4-12.4) fL Immature Gran % (Auto) 0.2 (0.0-0.4) % Neut % (Auto) 73.4 H (45-73) % Lymph % (Auto) 16.4 L (20-40) % [place] % (Auto) 8.3 (2-11) % Eos % (Auto) 1.1 (0-4) % Baso % (Auto) 0.6 (0-2) % Lymph # (Auto) 2.1 (1.2-4.9) X10*3/uL [place] # (Auto) 1.0 (0.1-1.2) X10*3/uL Eos # (Auto) 0.1 (0.0-0.4) X10*3/uL Baso # (Auto) 0.1 (0.0-0.2) X10*3/uL Abs Immat Gran (auto) 0.03 (0.00-0.03) X10*3/uL Absolute Neuts (auto) 9.2 H (2.0-8.3) x10*3/uL Absolute Nucleated RBC 0.000 (0.0-0.012) X10*3/uL Nucleated RBC % (auto) 0.0 (0.0-0.2) /100WBC Sodium 140 (135-145) mmol/L Potassium 3.6 (3.3-5.1) mmol/L Chloride 107 (96-108) mmol/L Carbon Dioxide 25 (22-29) mmol/L Anion Gap 12 (12-20) BUN 14 (9-16) mg/dL Creatinine 0.71 (0.5-1.4) mg/dL Estim Creat Clear Calc 148.2 Estimated GFR > 60 Random Glucose 96 (60-115) mg/dL Calcium 8.9 (8.4-10.2) mg/dL Total Bilirubin 1.1 H (0.0-1.0) mg/dL AST 24 (5-37) U/L ALT 23 (0-40) U/L Alkaline Phosphatase 77 (39-117) U/L Total Protein 7.1 (6.5-8.0) g/dL Albumin 4.0 (3.5-5.0) g/dL Urine Color Yellow Urine Appearance Clear Urine pH 5.5 (5.0-9.0) Ur Specific [place] 1.010 (1.005-1.025) Urine Protein Negative (Neg-Trace) mg/dL Urine Glucose (UA) Negative (Negative) mg/dL Urine Ketones Trace (Negative) mg/dL Urine Blood Negative (Negative) Urine Nitrite Negative (Negative) Ur Leukocyte Esterase Negative (Negative) Urine RBC 0-2 (0-2) /HPF Urine WBC 0-5 (0-5) /HPF Ur Squamous Epith Cells 3-5 (0-2) /HPF Urine Bacteria None Seen (None Seen) Hyaline Casts 0-2 (0-2) /LPF Urine Opiates Screen Not Detected (Not Detect) Urine Fentanyl Screen Not Detected (Not Detect) Ur Barbiturates Screen Not Detected (Not Detect) Ur Phencyclidine Scrn Not Detected (Not Detect) Ur Amphetamines Screen Not Detected (Not Detect) U Benzodiazepines Scrn Not Detected (Not Detect) Urine Cocaine Screen POSITIVE H (Not Detect) U Marijuana (THC) Screen Not Detected (Not Detect) Discharge Plan Discharge Clinical Impression: Bipolar 1 disorder, Depression, Cocaine abuse Patient Disposition: Still a Patient Prescriptions: No Action No Known Home Meds Interventions: [place]-Suicide Risk Severity Scale Last Done: 07/06/23 01:24 Print Language: Colombian
[2023-07-06 07:44] VITALS: BP 113/47; PULSE 65; RESP 18; TEMP 36.6; O2SAT 93
--- NOTE | 2023-07-06 13:45 | PC.NURSE ---
CARE TEAM AT BEDSIDE, PT AWARE OF PLAN OF CARE.
--- NOTE | 2023-07-06 13:54 | PC.NURSE ---
PT IS A/O X 3 NO SOB/TRACY NOTED SPEAKS IN FULL SENTENCES. AMB (I) GAIT STEADY. PT CAME UP TO RN STATION REQUESTED/GIVEN A SUN BUTTER AND JELLY. PT DENIES ANY PAIN/DISC. PT DENIES ANY SI/HI. PT AWARE OF PLAN OF CARE FOR D/C HOME. WILL CONTINUE TO MONITOR.
--- NOTE | 2023-07-06 14:01 | PC.NURSE ---
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
[2023-07-06 14:07] VITALS: BP 113/47; PULSE 65; RESP 18; TEMP 36.6; O2SAT 93
== END 2023-07-06 14:20 | disposition home or self-care (01) ==
PROVIDERS: Internal Medicine; Emergency Provider Emergency Medicine
DX: F31.30 Bipolar disorder, current episode depressed, mild or moderate severity, unspecified (principal); F14.10 Cocaine abuse, uncomplicated; F64.0 Transsexualism; Z91.51 Personal history of suicidal behavior
CPT/HCPCS: 36415; 80053; 80307; 81001; 85025; 99284; S9485

== ENCOUNTER 2023-07-18 23:38 | Emergency (ER) | payer MEDICAID, SELFPAY ==
[2023-07-18 23:51] VITALS: BP 119/69; PULSE 54; RESP 18; TEMP 36.1; O2SAT 99; BMI 25.1
--- NOTE | 2023-07-19 00:30 | MHC.EDTECH ---
Belongings done by Security, Put away in POD Closet.
[2023-07-19 00:45] LABS: Hematocrit 39.9 % (42.0-52.0); Hemoglobin 13.8 g/dl (14.0-18.0); Mean Corpuscular HGB Conc 34.6 g/dl (31.0-36.0); Mean Corpuscular Hemoglobin 30.6 pg (27.0-33.0); Mean Corpuscular Volume 88.5 fL (80.0-98.0); Platelet Count 249 X10*3/uL (160-400); Red Blood Count 4.51 X10*6/uL (4.60-5.80); Red Cell Distribution Width 12.1 % (11.0-16.0); White Blood Count 10.4 X10*3/uL (4.8-10.8)
--- NOTE | 2023-07-19 01:00 | PC.NURSE ---
Pt Calm and cooperative, Pt reports SI with no plan, reports increase depression in the past year. Pt changed over to hospital attire. 1:[address] for safety.
[2023-07-19 01:03] LABS: Alanine Aminotransferase 23 U/L (0-40); Albumin Level 3.7 g/dL (3.5-5.0); Alkaline Phosphatase 78 U/L (39-117); Anion Gap 11 (12-20); Aspartate Amino Transferase 21 U/L (5-37); Bilirubin Total 0.5 mg/dL (0.0-1.0); Blood Urea Nitrogen 21 mg/dL (9-16); Calcium 8.8 mg/dL (8.4-10.2); Carbon Dioxide 26 mmol/L (22-29); Chloride 106 mmol/L (96-108); Creatinine Clr Calc Pharmacy 138.9; Estimated Glomerular Filt Rate > 60; Ethanol < 10 mg/dL; Glucose Random 116 mg/dL (60-115); Potassium 3.8 mmol/L (3.3-5.1); Sodium 139 mmol/L (135-145); Total Protein 6.7 g/dL (6.5-8.0)
--- NOTE | 2023-07-19 01:30 | ED_ITS ---
HPI - General Adult General Chief complaint: Psychiatric Symptoms Stated complaint: suicdial Time Seen by Provider: 07/19/23 01:26 Source: patient, RN notes reviewed and old records reviewed Mode of arrival: ambulatory Limitations: no limitations History of Present Illness HPI narrative: 48-year-old male to female transgender patient presents for evaluation of suicidal ideation. Patient reports that she has been feeling suicidal for the last 4 or 5 days. She states that is due to ?the anniversary of my 's . ? Patient reports that she has been taking described. She takes this for bipolar disorder. Patient denies any somatic complaints Denies any plan for suicidal ideation at this time Related Data Home Medications ?Medication ?Instructions ?Recorded ?Confirmed No Known Home Meds 05/25/23 05/25/23 Allergies Allergy/AdvReac Type Severity Reaction Status Date / Time nicotine [From NICODERM CQ] Allergy Mild SHORTNESS Verified 07/18/23 23:54 OF BREATH ketchup [KETCHUP] Allergy Unknown RASH Verified 07/18/23 23:54 onion [ONION] Allergy Unknown RASH Verified 07/18/23 23:54 tomato [TOMATO] Allergy Unknown RASH Verified 07/18/23 23:54 Review of Systems 2 Constitutional: Constitutional: Denies body ache(s), Denies chills, Denies fever(s) and Denies headache(s) Eyes: Eyes: Denies blurry vision ENT: Denies headache(s) and Denies sore throat Cardiovascular: Cardiovascular: Denies chest pain and Denies dyspnea Respiratory: Respiratory: Denies cough and Denies dyspnea Gastrointestinal: Gastrointestinal: Denies abdominal pain, Denies nausea and Denies vomiting Musculoskeletal: Musculoskeletal: Denies back pain Integumentary/Breasts: Skin/Breast: Denies rash Neurologic: Denies headache(s) Psychiatric: Psychiatric: Reports depression and Reports suicidal ideation [facility] Past Medical History Medical History Transgender Personality disorder Bipolar 1 disorder Social History Social History Alcohol intake: never Patient Tobacco Use Status: Never used Tobacco Substance Use Type: Crack/Cocaine and Marijuana Advance Directives: No Advance Directives Information Provided: Yes Physical Exam ED Vital Signs: Vital Signs - 24 hr 07/18/23 23:51 Temperature 97 F Pulse Rate 54 Respiratory Rate 18 Blood Pressure 119/69 Pulse Oximetry 99 Oxygen Delivery Method Room Air BMI result Body Mass Index 25.1 Const General: healthy appearing, comfortable, no acute distress, alert and awake Nutritional Appearance: well nourished Orientation/consciousness: patient oriented x3 HENMT Head: Yes normocephalic and Yes atraumatic Eyes Eyelids: Yes eyelids normal Conjunctivae: conjunctivae normal Sclerae: sclerae normal Corneas: corneas normal Pupils: Equal, round and reactive pupils present EOM: EOMs intact bilaterally Neck Neck: Yes full ROM Resp Effort & Inspection: normal respiratory effort, able to speak in complete sentences and not labored GI Inspection: No distended Palpation (GI): Soft to palpation, not firm, nontender, no guarding and not rigid Skin General skin exam: elasticity normal Neuro General: patient oriented x3 Cranial nerves: Yes Equal, round and reactive pupils present and Yes Bilaterally intact EOM present Cognition (Neuro): normal cognition Extrem Other: Moving all extremities well without any obvious deformities Medical Decision Making Medical Decision Making [facility] Narrative: 48-year-old male to female transgender patient presents for evaluation of suicidal ideation. She is well known to this ER and other local ER for suicidal ideation. Plan for medical evaluation/clearance and care team evaluation. Differential Diagnosis Differential Diagnoses: The differential diagnosis associated with the presentation includes Depression Suicidal ideation Homelessness Malingering Substance abuse Bipolar disorder Lab Data [facility] Lab Attestation statement: I reviewed the patient's lab results. No leukocytosis with a white count of 10.4. Patient has a mild anemia with a hemoglobin of 13.8 and hematocrit 39.9. This is consistent with her baseline of around 14 and 40 respectively. Patient's chemistry indices have no significant abnormalities. Anion gap is just below normal at 11, BUN is elevated to 21 which may be related to some degree of dehydration. Normal creatinine. Random glucose of 116 07/19/23 00:40 07/19/23 00:40 Labs: Lab Results 07/19/23 Range/Units 00:40 WBC 10.4 (4.8-10.8) X10*3/uL RBC 4.51 L (4.60-5.80) X10*6/uL Hgb 13.8 L (14.0-18.0) g/dl Hct 39.9 L (42.0-52.0) % MCV 88.5 (80.0-98.0) fL MCH 30.6 (27.0-33.0) pg MCHC 34.6 (31.0-36.0) g/dl RDW 12.1 (11.0-16.0) % Plt Count 249 (160-400) X10*3/uL MPV 10.0 (9.4-12.4) fL Absolute Nucleated RBC 0.000 (0.0-0.012) X10*3/uL Nucleated RBC % (auto) 0.0 (0.0-0.2) /100WBC Sodium 139 (135-145) mmol/L Potassium 3.8 (3.3-5.1) mmol/L Chloride 106 (96-108) mmol/L Carbon Dioxide 26 (22-29) mmol/L Anion Gap 11 L (12-20) BUN 21 H (9-16) mg/dL Creatinine 0.70 (0.5-1.4) mg/dL Estim Creat Clear Calc 138.9 Estimated GFR > 60 Random Glucose 116 H (60-115) mg/dL Calcium 8.8 (8.4-10.2) mg/dL Total Bilirubin 0.5 (0.0-1.0) mg/dL AST 21 (5-37) U/L ALT 23 (0-40) U/L Alkaline Phosphatase 78 (39-117) U/L Total Protein 6.7 (6.5-8.0) g/dL Albumin 3.7 (3.5-5.0) g/dL Ethyl Alcohol < 10 mg/dL Discharge Plan Discharge Clinical Impression: Bipolar 1 disorder, Suicidal ideation Patient Disposition: Still a Patient Prescriptions: No Action No Known Home Meds Print Language: Danish
[2023-07-19 02:15] LABS: Amphetamine Screen Urine Not Detected (Not Detect); Barbiturates, Urine Not Detected (Not Detect); Benzodiazepines Screen Urine Not Detected (Not Detect); Buprenorphine Scr Not Detected (Not Detect); Cannabinoid Screen Urine Not Detected (Not Detect); Cocaine Screen Urine POSITIVE (Not Detect); Fentanyl, urine Not Detected (Not Detect); Methadone Screen, Urine Not Detected (Not Detect); Opiate Screen Urine Not Detected (Not Detect); Oxycodone Screen Urine Not Detected (Not Detect); Phencyclidine Screen Urine Not Detected (Not Detect)
--- NOTE | 2023-07-19 02:17 | PC.NURSE ---
Pt ambulated to BR with steady gait, urine sample collected and sent to lab. Pt given sandwich and PO fluids per request.
[2023-07-19 06:27] VITALS: BP 93/55; PULSE 47; RESP 15; TEMP 36.6; O2SAT 97
[2023-07-19 08:04] VITALS: BP 93/55; PULSE 50; RESP 16; TEMP 36.6; O2SAT 97
== END 2023-07-19 08:06 | disposition home or self-care (01) ==
PROVIDERS: Emergency Provider Emergency Medicine Emergency Medical Services
DX: F31.9 Bipolar disorder, unspecified (principal); R45.851 Suicidal ideations; F64.0 Transsexualism
CPT/HCPCS: 36415; 80053; 80307; 85027; 99284; 99285; S9485

== ENCOUNTER 2023-08-08 05:38 | Emergency (ER) | payer MEDICAID, SELFPAY ==
[2023-08-08 06:04] VITALS: BP 97/58; PULSE 48; RESP 16; TEMP 36.4; O2SAT 97; BMI 26.6
--- NOTE | 2023-08-08 08:13 | ED_ITS ---
HPI - Psych General Chief Complaint: Psychiatric Symptoms Stated Complaint: SI no plan Time Seen by Provider: 08/08/23 08:10 Source: patient Mode of arrival: ambulatory Limitations: no limitations History of Present Illness HPI Narrative: 48-year-old transgender male to female with history of bipolar disorder, borderling personality disorder who presents to the ER from home for evaluation of suicidal ideation for the last 3 weeks. Patient agitated in the process of getting changed over. she states she is not suicidal at this time and wants to go home. She states she does not want to kill herself. She is upset with staff and wants to leave the emergency room. complaint: suicidal ideation Onset (ago): week(s) History of same: Yes Associated psychiatric symptoms: depression and suicidal ideation Associated symptoms: denies other symptoms Related Data Home Medications ?Medication ?Instructions ?Recorded ?Confirmed No Known Home Meds 05/25/23 05/25/23 Allergies Allergy/AdvReac Type Severity Reaction Status Date / Time nicotine [From NICODERM CQ] Allergy Mild SHORTNESS Verified 08/08/23 06:05 OF BREATH ketchup [KETCHUP] Allergy Unknown RASH Verified 08/08/23 06:05 onion [ONION] Allergy Unknown RASH Verified 08/08/23 06:05 tomato [TOMATO] Allergy Unknown RASH Verified 08/08/23 06:05 Review of Systems Review of Systems: Yes all other systems are reviewed and are negative PMFSH Past Medical History Medical History Transgender Personality disorder Bipolar 1 disorder Social History Social History Alcohol intake: never Patient Tobacco Use Status: Never used Tobacco Substance Use Type: Crack/Cocaine and Marijuana Advance Directives: No Do you have a plan to hurt others: No Plan Physical Exam Vital Signs: Vital Signs: Last Vital Signs Temp 97.6 F 08/08/23 06:04 Pulse 48 L 08/08/23 06:04 Resp 16 08/08/23 06:04 BP 97/58 L 08/08/23 06:04 Pulse Ox 97 08/08/23 06:04 O2 Del Method Room Air 08/08/23 06:04 BMI result Body Mass Index 26.6 Appearance: Alert. Oriented X3. No acute distress. Head: normocephalic, atraumatic. EENT: normal external inspection Neck: Normal inspection. Neck supple. CVS: Normal heart rate and rhythm. Pulses normal. Respiratory: No respiratory distress. Breath sounds normal. Abdomen: Soft and nontender. +BS x4 Skin: Skin warm and dry. Normal skin color. Normal skin turgor. No rashes. Extremities: No lower extremity edema. No joint swelling. Neuro/psych: Oriented X 3. No motor deficit. No sensory deficit. CN II-XII intact. Normal speech and cognition. Not suicidal. Speaking complete sente nces. Medical Decision Making Medical Decision Making MDM Narrative: 48-year-old transgender male to female with history of bipolar disorder and borderline personality disorder here with reports of suicidal ideation. In triage patient admitted to suicidal thoughts for the last 3 weeks but admitted to having no plan. Patient was seen in the emergency department twice last month for similar complaints and ended up being discharged home. When the patient was brought back into the main emergency department they retracted there suicidal thoughts. They refused to get changed over and no longer wanted to be seen by crisis. Again patient adamantly denying any suicidal thoughts and wants to go home. Patient stable for discharge with outpatient follow-up. Return precautions discussed. Differential Diagnosis Differential Diagnoses: The differential diagnosis associated with the presentation includes substance induced mood disorder, acute psychosis, schizophrenia, schizoaffective disorder, PTSD, bipolar disorder, major depression with psychotic features, malingering Admission/Observation Consideration of admission/observation: Escalation of care including admission/observation considered Initially suicidal, considered possible psych admission External Record Review External record reviewed: Outpatient record and Prior outpatient labs Prescription Management I considered prescription management with: Other (Antipsychotic) Chronic Conditions Patient?s care impacted by: Other (Bipolar and borderline personality disorder) Critical Care Time Critical Care Time Critical Care Time: No Discharge Plan Discharge Clinical Impression: Personality disorder, Bipolar 1 disorder Patient Disposition: Home, Self-Care Instructions: Bipolar Disorder (ED) Additional Instructions: follow up with your provider, therapist, psychiatrist If you develop new or worsening symptoms call 911 or come back to the ER for further evaluation. Prescriptions: No Action No Known Home Meds Print Language: Tristanian
--- NOTE | 2023-08-08 08:24 | PC.NURSE ---
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 ELSEI JOHNSON SPOKE WITH PT AND DISCH THEM.
[2023-08-08 08:27] VITALS: BP 97/58; PULSE 48; RESP 16; TEMP 36.4; O2SAT 97
== END 2023-08-08 08:33 | disposition home or self-care (01) ==
PROVIDERS: Emergency Provider Emergency Medicine
DX: F60.9 Personality disorder, unspecified (principal); R45.851 Suicidal ideations; F31.9 Bipolar disorder, unspecified; F14.90 Cocaine use, unspecified, uncomplicated
CPT/HCPCS: 99283

== ENCOUNTER 2023-08-11 01:51 | Emergency (ER) | payer MEDICAID, SELFPAY ==
[2023-08-11 01:57] VITALS: BP 114/60; PULSE 73; RESP 14; TEMP 36.5; O2SAT 99; BMI 24.6
--- NOTE | 2023-08-11 02:10 | PC.NURSE ---
security left personal belongings on top of leach cart and in this time client grabbed seemingly own food out of trash and began consuming it. t/w went and locked up belongings and secured them. t/w asked if client wanted their food to go inbelongings which this clients stated yes. t/w will lock up charging phone after 30 minutes of charging it.
[2023-08-11 02:18] LABS: MANUAL DIFF FLAG NO
[2023-08-11 02:20] LABS: Basophils Absolute Auto 0.1 X10*3/uL (0.0-0.2); Basophils Percent Auto 0.5 % (0-2); Eosinophils Absolute Auto 0.2 X10*3/uL (0.0-0.4); Eosinophils Percent Auto 1.3 % (0-4); Hematocrit 41.3 % (42.0-52.0); Hemoglobin 14.5 g/dl (14.0-18.0); Imm Gran Abs Auto 0.03 X10*3/uL (0.00-0.03); Imm Gran Pct Auto 0.3 % (0.0-0.4); Mean Corpuscular HGB Conc 35.1 g/dl (31.0-36.0); Mean Corpuscular Volume 88.2 fL (80.0-98.0); Mean Platelet Volume 9.8 fL (9.4-12.4); Monocytes Percent Auto 8.8 % (2-11); Neutrophils Absolute Auto 6.9 x10*3/uL (2.0-8.3); Neutrophils Percent Auto 62.1 % (45-73); Platelet Count 287 X10*3/uL (160-400); Red Blood Count 4.68 X10*6/uL (4.60-5.80); Red Cell Distribution Width 12.7 % (11.0-16.0); White Blood Count 11.2 X10*3/uL (4.8-10.8)
--- NOTE | 2023-08-11 02:36 | ED.PSYCH ---
HPI - Psych General Chief Complaint: Psychiatric Symptoms Stated Complaint: suicidal Time Seen by Provider: 08/11/23 02:35 Source: patient Mode of arrival: ambulatory Limitations: no limitations History of Present Illness HPI Narrative: Patient feeling increasingly depressed does have history of bipolar disorder symptoms getting worse of the of her a year ago feels suicidal with plan to cut superficial cuts/abrasion on the wrist no bleeding Related Data Home Medications ?Medication ?Instructions ?Recorded ?Confirmed No Known Home Meds 05/25/23 05/25/23 Allergies Allergy/AdvReac Type Severity Reaction Status Date / Time nicotine [From NICODERM CQ] Allergy Mild SHORTNESS Verified 08/11/23 01:58 OF BREATH ketchup [KETCHUP] Allergy Unknown RASH Verified 08/11/23 01:58 onion [ONION] Allergy Unknown RASH Verified 08/11/23 01:58 tomato [TOMATO] Allergy Unknown RASH Verified 08/11/23 01:58 Review of Systems Review of Systems: Yes all other systems are reviewed and are negative PMFSH Past Medical History Medical History Transgender Personality disorder Bipolar 1 disorder Social History Social History Alcohol intake: never Patient Tobacco Use Status: Never used Tobacco Substance Use Type: Crack/Cocaine and Marijuana Advance Directives: No Advance Directives Information Provided: Yes Physical Exam Vital Signs: Vital Signs: Last Vital Signs Temp 97.7 F 08/11/23 01:57 Pulse 73 08/11/23 01:57 Resp 14 08/11/23 01:57 BP 114/60 08/11/23 01:57 Pulse Ox 99 08/11/23 01:57 O2 Del Method Room Air 08/11/23 01:57 BMI result Body Mass Index 24.6 Appearance: Alert. Oriented X3. No acute distress. Eyes: PERRLA, No Nystagmus ENT: Pharynx normal. Oral Mucosa moist Neck: Normal inspection. Neck supple. CVS: Normal heart rate and rhythm. Pulses normal. Respiratory: No respiratory distress. Equal air entry bilateral, no wheezing/rales/rhonchi Abdomen: Soft and nontender. Skin: Skin warm and dry. Normal skin color. Normal skin turgor. Extremities: No lower extremity edema. No calf tenderness superficial abrasion left wrist psych: Feel depressed and suicidal Neuro: Oriented X 3. No motor deficit. No sensory deficit.No cerebellar signs , cranial nerves II-XII intact Medical Decision Making Medical Decision Making [facility] Narrative: Patient has significant depression with suicidal ideation will get care team to evaluate the patient medically cleared Lab Data [facility] Lab Attestation statement: I reviewed the patient's lab results. 08/11/23 02:14 08/11/23 02:14 Labs: Lab Results 08/11/23 Range/Units 02:14 WBC 11.2 H (4.8-10.8) X10*3/uL RBC 4.68 (4.60-5.80) X10*6/uL Hgb 14.5 (14.0-18.0) g/dl Hct 41.3 L (42.0-52.0) % MCV 88.2 (80.0-98.0) fL MCH 31.0 (27.0-33.0) pg MCHC 35.1 (31.0-36.0) g/dl RDW 12.7 (11.0-16.0) % Plt Count 287 (160-400) X10*3/uL MPV 9.8 (9.4-12.4) fL Immature Gran % (Auto) 0.3 (0.0-0.4) % Neut % (Auto) 62.1 (45-73) % Lymph % (Auto) 27.0 (20-40) % [place] % (Auto) 8.8 (2-11) % Eos % (Auto) 1.3 (0-4) % Baso % (Auto) 0.5 (0-2) % Lymph # (Auto) 3.0 (1.2-4.9) X10*3/uL [place] # (Auto) 1.0 (0.1-1.2) X10*3/uL Eos # (Auto) 0.2 (0.0-0.4) X10*3/uL Baso # (Auto) 0.1 (0.0-0.2) X10*3/uL Abs Immat Gran (auto) 0.03 (0.00-0.03) X10*3/uL Absolute Neuts (auto) 6.9 (2.0-8.3) x10*3/uL Absolute Nucleated RBC 0.000 (0.0-0.012) X10*3/uL Nucleated RBC % (auto) 0.0 (0.0-0.2) /100WBC Sodium 138 (135-145) mmol/L Potassium 3.7 (3.3-5.1) mmol/L Chloride 106 (96-108) mmol/L Carbon Dioxide 23 (22-29) mmol/L Anion Gap 13 (12-20) BUN 14 (9-16) mg/dL Creatinine 0.71 (0.5-1.4) mg/dL Estim Creat Clear Calc 136.9 Estimated GFR > 60 Random Glucose 111 (60-115) mg/dL Calcium 9.3 (8.4-10.2) mg/dL Total Bilirubin 0.6 (0.0-1.0) mg/dL AST 27 (5-37) U/L ALT 26 (0-40) U/L Alkaline Phosphatase 68 (39-117) U/L Total Protein 7.2 (6.5-8.0) g/dL Albumin 4.0 (3.5-5.0) g/dL Ethyl Alcohol < 10 mg/dL Discharge Plan Discharge Clinical Impression: Depression with suicidal ideation Patient Disposition: Still a Patient Prescriptions: No Action No Known Home Meds Interventions: [place]-Suicide Risk Severity Scale Last Done: 08/11/23 04:17 Print Language: Montenegrin
[2023-08-11 02:37] LABS: Alanine Aminotransferase 26 U/L (0-40); Alkaline Phosphatase 68 U/L (39-117); Anion Gap 13 (12-20); Aspartate Amino Transferase 27 U/L (5-37); Bilirubin Total 0.6 mg/dL (0.0-1.0); Blood Urea Nitrogen 14 mg/dL (9-16); Calcium 9.3 mg/dL (8.4-10.2); Carbon Dioxide 23 mmol/L (22-29); Chloride 106 mmol/L (96-108); Creatinine Clr Calc Pharmacy 136.9; Estimated Glomerular Filt Rate > 60; Ethanol < 10 mg/dL; Glucose Random 111 mg/dL (60-115); Potassium 3.7 mmol/L (3.3-5.1); Sodium 138 mmol/L (135-145); Total Protein 7.2 g/dL (6.5-8.0)
[2023-08-11 11:30] LABS: Appearance Urine Clear; Color Urine Yellow; Glucose Urine UA Negative (Negative); Leukocyte Esterase Urine Negative (Negative); Nitrite Urine Negative (Negative); PH 5.5 (5.0-9.0); Urine Blood Negative (Negative); Urine Ketones Negative (Negative); Urine Protein Negative (Neg-Trace)
[2023-08-11 11:32] LABS: Bacteria Urine None Seen (None Seen); Hyaline Casts Urine 0-2 /LPF (0-2); RBC Urine 0-2 /HPF (0-2); WBC Urine 0-5 /HPF (0-5)
[2023-08-11 11:38] LABS: Amphetamine Screen Urine Not Detected (Not Detect); Barbiturates, Urine Not Detected (Not Detect); Benzodiazepines Screen Urine Not Detected (Not Detect); Buprenorphine Scr Not Detected (Not Detect); Cannabinoid Screen Urine Not Detected (Not Detect); Cocaine Screen Urine POSITIVE (Not Detect); Fentanyl, urine Not Detected (Not Detect); Methadone Screen, Urine Not Detected (Not Detect); Opiate Screen Urine Not Detected (Not Detect); Oxycodone Screen Urine Not Detected (Not Detect); Phencyclidine Screen Urine Not Detected (Not Detect)
[2023-08-11 19:50] VITALS: BP 124/79; PULSE 86; RESP 16; TEMP 36.6; O2SAT 97
[2023-08-12 05:05] VITALS: BP 126/82; PULSE 78; RESP 16; TEMP 36.6; O2SAT 98
--- NOTE | 2023-08-12 05:25 | PC.NURSE ---
Patient slept through the night, no distress observed/reported, denied SI/HI/AVH, VSS, patient is currently not on any medication, patient was assessed by care team disposition is SUDHA follow up, behavior in good control, will continue to monitor.
--- NOTE | 2023-08-12 07:07 | PC.NURSE ---
Assumed care of patient at 0645. Patient is observed sleeping in her bed. No signs of distress, breathing is even and unlabored. Will continue plan of care.
[2023-08-12 14:10] VITALS: BP 114/54; PULSE 54; TEMP 36.3; O2SAT 97
[2023-08-12 15:21] VITALS: BP 114/54; PULSE 54; RESP 18; TEMP 36.3; O2SAT 97
== END 2023-08-12 15:25 | disposition home or self-care (01) ==
PROVIDERS: Emergency Provider Internal Medicine
DX: R45.851 Suicidal ideations (principal); F32.A Depression, unspecified; Z63.4 Disappearance and death of family member
CPT/HCPCS: 36415; 80053; 80307; 81001; 85025; 99285; S9485

== ENCOUNTER 2023-09-07 02:45 | Emergency (ER) | payer MEDICAID, SELFPAY ==
[2023-09-07 02:52] VITALS: BP 115/68; PULSE 54; RESP 18; TEMP 36.4; O2SAT 98; BMI 25.9
[2023-09-07 03:19] LABS: MANUAL DIFF FLAG NO
[2023-09-07 03:20] LABS: Basophils Absolute Auto 0.1 X10*3/uL (0.0-0.2); Basophils Percent Auto 0.6 % (0-2); Eosinophils Absolute Auto 0.2 X10*3/uL (0.0-0.4); Eosinophils Percent Auto 1.8 % (0-4); Hemoglobin 13.3 g/dl (14.0-18.0); Imm Gran Abs Auto 0.03 X10*3/uL (0.00-0.03); Imm Gran Pct Auto 0.3 % (0.0-0.4); Lymphocytes Percent Auto 28.4 % (20-40); Mean Corpuscular Volume 88.6 fL (80.0-98.0); Mean Platelet Volume 9.9 fL (9.4-12.4); Monocytes Absolute Auto 0.8 X10*3/uL (0.1-1.2); Neutrophils Absolute Auto 6.3 x10*3/uL (2.0-8.3); Neutrophils Percent Auto 60.9 % (45-73); Platelet Count 233 X10*3/uL (160-400); Red Blood Count 4.29 X10*6/uL (4.60-5.80); Red Cell Distribution Width 12.7 % (11.0-16.0); White Blood Count 10.4 X10*3/uL (4.8-10.8)
[2023-09-07 03:51] LABS: Lithium < 0.10 mmol/L (0.60-1.20)
[2023-09-07 03:57] LABS: Alanine Aminotransferase 16 U/L (0-40); Albumin Level 3.9 g/dL (3.5-5.0); Alkaline Phosphatase 65 U/L (39-117); Anion Gap 9 (12-20); Aspartate Amino Transferase 19 U/L (5-37); Blood Urea Nitrogen 20 mg/dL (9-16); Calcium 9.1 mg/dL (8.4-10.2); Carbon Dioxide 27 mmol/L (22-29); Chloride 108 mmol/L (96-108); Creatinine Clr Calc Pharmacy 126.3; Estimated Glomerular Filt Rate > 60; Glucose Random 129 mg/dL (60-115); Potassium 3.3 mmol/L (3.3-5.1); Sodium 141 mmol/L (135-145); Total Protein 6.9 g/dL (6.5-8.0)
[2023-09-07 04:00] LABS: Ethanol < 10 mg/dL
--- NOTE | 2023-09-07 04:15 | ED.PSYCH ---
HPI - Psych General Chief Complaint: Psychiatric Symptoms Stated Complaint: si Time Seen by Provider: 09/07/23 03:05 History of Present Illness HPI Narrative: Patient is a 48-year-old male history of polysubstance abuse. Now feeling suicidal. Had thoughts about cutting himself. History of bipolar. Positive use of cocaine Related Data Home Medications ?Medication ?Instructions ?Recorded ?Confirmed lithium carbonate 300 mg capsule 300 mg PO BID 09/07/23 09/07/23 Allergies Allergy/AdvReac Type Severity Reaction Status Date / Time nicotine [From NICODERM CQ] Allergy Mild SHORTNESS Verified 09/07/23 02:53 OF BREATH ketchup [KETCHUP] Allergy Unknown RASH Verified 09/07/23 02:53 onion [ONION] Allergy Unknown RASH Verified 09/07/23 02:53 tomato [TOMATO] Allergy Unknown RASH Verified 09/07/23 02:53 Review of Systems Review of Systems: Positive cocaine use positive suicidal thoughts Yes all other systems are reviewed and are negative [facility] Past Medical History Attestation statement: The following information was validated with the patient. Medical History Transgender Personality disorder Bipolar 1 disorder Social History Social History Unable to assess alcohol history related to: Refusing to respond Alcohol intake: never Patient Tobacco Use Status: Never used Tobacco Substance Use Type: Crack/Cocaine and Marijuana Advance Directives: No Do you have a plan to hurt others: No Plan Physical Exam Vital Signs: Vital Signs: Last Vital Signs Temp 97.5 F 09/07/23 02:52 Pulse 54 09/07/23 02:52 Resp 18 09/07/23 02:52 BP 115/68 09/07/23 02:52 Pulse Ox 98 09/07/23 02:52 O2 Del Method Room Air 09/07/23 02:52 BMI result Body Mass Index 25.9 Appearance: Alert. Oriented X3. No acute distress. Eyes: Pupils equal, round and reactive to light. ENT: Pharynx normal. Neck: Normal inspection. Neck supple. No lymph nodes noted. No crepitus CVS: Normal heart rate and rhythm. Pulses normal. Normal S1 and S2 Respiratory: No respiratory distress. Breath sounds normal. No Wheezing. No rales Abdomen: Soft and nontender. No rigidity. No distention. good BS x4 Skin: Skin warm and dry. Normal skin color. Normal skin turgor. Extremities: No lower extremity edema. Neurovascular intact to all extremities. No Lacerations. No Rash Neuro: Oriented X 3. No motor deficit. No sensory deficit. Moving all extermities. No slurred speech. Cranial nerves grossly intact Medical Decision Making Medical Decision Making [facility] Narrative: Well-appearing no acute distress. Patient awaiting crisis evaluation. Positive cocaine use. Patient's labs are unremarkable. [place] is subtherapeutic. Alcohol is negative. Differential Diagnosis Differential Diagnoses: The differential diagnosis associated with the presentation includes Depression, suicidal ideation Admission/Observation Consideration of admission/observation: Escalation of care including admission/observation considered Lab Data [facility] Lab Attestation statement: I reviewed the patient's lab results. 09/07/23 03:15 09/07/23 03:15 Labs: Lab Results 09/07/23 Range/Units 03:15 WBC 10.4 (4.8-10.8) X10*3/uL RBC 4.29 L (4.60-5.80) X10*6/uL Hgb 13.3 L (14.0-18.0) g/dl Hct 38.0 L (42.0-52.0) % MCV 88.6 (80.0-98.0) fL MCH 31.0 (27.0-33.0) pg MCHC 35.0 (31.0-36.0) g/dl RDW 12.7 (11.0-16.0) % Plt Count 233 (160-400) X10*3/uL MPV 9.9 (9.4-12.4) fL Immature Gran % (Auto) 0.3 (0.0-0.4) % Neut % (Auto) 60.9 (45-73) % Lymph % (Auto) 28.4 (20-40) % [place] % (Auto) 8.0 (2-11) % Eos % (Auto) 1.8 (0-4) % Baso % (Auto) 0.6 (0-2) % Lymph # (Auto) 3.0 (1.2-4.9) X10*3/uL [place] # (Auto) 0.8 (0.1-1.2) X10*3/uL Eos # (Auto) 0.2 (0.0-0.4) X10*3/uL Baso # (Auto) 0.1 (0.0-0.2) X10*3/uL Abs Immat Gran (auto) 0.03 (0.00-0.03) X10*3/uL Absolute Neuts (auto) 6.3 (2.0-8.3) x10*3/uL Absolute Nucleated RBC 0.000 (0.0-0.012) X10*3/uL Nucleated RBC % (auto) 0.0 (0.0-0.2) /100WBC Sodium 141 (135-145) mmol/L Potassium 3.3 (3.3-5.1) mmol/L Chloride 108 (96-108) mmol/L Carbon Dioxide 27 (22-29) mmol/L Anion Gap 9 L (12-20) BUN 20 H (9-16) mg/dL Creatinine 0.77 (0.5-1.4) mg/dL Estim Creat Clear Calc 126.3 Estimated GFR > 60 Random Glucose 129 H (60-115) mg/dL Calcium 9.1 (8.4-10.2) mg/dL Total Bilirubin 1.0 (0.0-1.0) mg/dL AST 19 (5-37) U/L ALT 16 (0-40) U/L Alkaline Phosphatase 65 (39-117) U/L Total Protein 6.9 (6.5-8.0) g/dL Albumin 3.9 (3.5-5.0) g/dL [place] < 0.10 L (0.60-1.20) mmol/L Ethyl Alcohol < 10 mg/dL Discharge Plan Discharge Clinical Impression: Bipolar 1 disorder, Transgender, Suicidal ideation Patient Disposition: Still a Patient Prescriptions: No Action lithium carbonate 300 mg capsule 300 mg PO BID Print Language: Malaysian
[2023-09-07 07:23] VITALS: RESP 16
--- NOTE | 2023-09-07 07:23 | PC.NURSE ---
Assumed care of patient at 0645, patient appears to be somewhat restless on couch in [facility], tossing and turning over. Offers no complaints to this RN at this time. Continue plan of care for CARE team eval this am
[2023-09-07] MEDS: Lithium Carbonate 300 MG CAPSULE PO (08:21)
[2023-09-07 12:13] LABS: Appearance Urine Clear; Color Urine Yellow; Glucose Urine UA Negative (Negative); Leukocyte Esterase Urine Negative (Negative); Nitrite Urine Negative (Negative); Specific Gravity - Urine >= 1.030 (1.005-1.025); Urine Blood Negative (Negative); Urine Ketones Trace mg/dL (Negative); Urine Protein Negative (Neg-Trace)
[2023-09-07 12:24] LABS: Amphetamine Screen Urine Not Detected (Not Detect); Barbiturates, Urine Not Detected (Not Detect); Benzodiazepines Screen Urine Not Detected (Not Detect); Buprenorphine Scr Not Detected (Not Detect); Cannabinoid Screen Urine Not Detected (Not Detect); Cocaine Screen Urine POSITIVE (Not Detect); Methadone Screen, Urine Not Detected (Not Detect); Opiate Screen Urine Not Detected (Not Detect); Oxycodone Screen Urine Not Detected (Not Detect); Phencyclidine Screen Urine Not Detected (Not Detect)
[2023-09-07 12:28] LABS: Fentanyl, urine Not Detected (Not Detect)
--- NOTE | 2023-09-07 12:59 | MHC.CARE ---
[facility]CS Referrals submitted to [facility] & [facility]. NOTE: Pt did not provide a urine in a timely fashion which delayed the referrals being sent.
[2023-09-07 13:55] VITALS: BP 122/78; PULSE 62; RESP 16; TEMP 36.6; O2SAT 98
--- NOTE | 2023-09-07 13:58 | MHC.CARE ---
Pt was made an ACCS bedsearch during her assessment.? Referrals were faxed to [facility] and [facility] as indicated in the previous note.? CARE Team called [facility] to activate the referral and when doing so was advised they had open beds and would conduct a telephone intake in that moment. Pt was given the phone and when she took the phone, stated ?I?m not going.? and hung the phone up. During the initial assessment, pt was advised an ACCS admission was the disposition for her case and she agreed to this.? Pt was explained the rationale behind this and was in agreement. After pt declined ACCS admission, CARE Team spoke with pt regarding her decision and was advised that she wishes to go home and is no longer experiencing SI. Pt has declined all services, no longer wishes an ACCS admission and feels as though she can safely return home.? Pt will often present to the ED with a complaint of SI and will vacillate between needing/ wanting an inpatient admission and wanting to be discharged.? Pt will often recant her SI and plan when she feels the process has taken too long. Pt will historically endorse fleeting suicidal thoughts. Pt will be discharged home and provided with transportation should she need it.? This plan was discussed with and agreed upon by ED provider Jem Barlow.
== END 2023-09-07 13:57 | disposition home or self-care (01) ==
PROVIDERS: Emergency Medicine Emergency Medical Services; Emergency Provider Emergency Medicine Emergency Medical Services
DX: F31.9 Bipolar disorder, unspecified (principal); R45.851 Suicidal ideations; F64.0 Transsexualism; F19.10 Other psychoactive substance abuse, uncomplicated; F60.9 Personality disorder, unspecified; F14.90 Cocaine use, unspecified, uncomplicated; Z79.899 Other long term (current) drug therapy
CPT/HCPCS: 36415; 80053; 80178; 80307; 81003; 85025; 99284; 99285; S9485

== ENCOUNTER 2023-09-23 02:39 | Emergency (ER) | payer MEDICAID, SELFPAY ==
[2023-09-23 02:42] VITALS: BP 106/68; PULSE 57; RESP 18; TEMP 36.6; O2SAT 98; BMI 25.2
[2023-09-23 03:11] LABS: MANUAL DIFF FLAG NO
[2023-09-23 03:12] LABS: Basophils Absolute Auto 0.1 X10*3/uL (0.0-0.2); Basophils Percent Auto 0.7 % (0-2); Eosinophils Absolute Auto 0.4 X10*3/uL (0.0-0.4); Eosinophils Percent Auto 4.1 % (0-4); Hematocrit 39.9 % (42.0-52.0); Imm Gran Abs Auto 0.02 X10*3/uL (0.00-0.03); Imm Gran Pct Auto 0.2 % (0.0-0.4); Lymphocytes Absolute Auto 2.6 X10*3/uL (1.2-4.9); Lymphocytes Percent Auto 25.2 % (20-40); Mean Corpuscular HGB Conc 35.1 g/dl (31.0-36.0); Mean Corpuscular Hemoglobin 31.1 pg (27.0-33.0); Mean Corpuscular Volume 88.7 fL (80.0-98.0); Mean Platelet Volume 9.9 fL (9.4-12.4); Monocytes Absolute Auto 0.9 X10*3/uL (0.1-1.2); Monocytes Percent Auto 8.9 % (2-11); Neutrophils Absolute Auto 6.2 x10*3/uL (2.0-8.3); Neutrophils Percent Auto 60.9 % (45-73); Platelet Count 264 X10*3/uL (160-400); Red Cell Distribution Width 12.8 % (11.0-16.0); White Blood Count 10.1 X10*3/uL (4.8-10.8)
--- NOTE | 2023-09-23 03:12 | PC.NURSE ---
Pt aox4, VSS, no apparent distress. Endorses SI with plan to jump off a bridge and AH. Pt is unable to provide urine sample at this time. Pt is on lithium. [place] level ordered. Pt declines to have lithium lab drawn at this time. Food and drink provided. Pending physician evaluation. Monitoring is ongoing.
[2023-09-23 03:31] LABS: Acetaminophen LAB < 3 mcg/mL (<30); Alanine Aminotransferase 19 U/L (0-40); Alkaline Phosphatase 76 U/L (39-117); Anion Gap 13 (12-20); Aspartate Amino Transferase 25 U/L (5-37); Bilirubin Total 0.6 mg/dL (0.0-1.0); Blood Urea Nitrogen 17 mg/dL (9-16); Calcium 9.4 mg/dL (8.4-10.2); Carbon Dioxide 24 mmol/L (22-29); Chloride 111 mmol/L (96-108); Creatinine Clr Calc Pharmacy 133.2; Estimated Glomerular Filt Rate > 60; Ethanol < 10 mg/dL; Glucose Random 94 mg/dL (60-115); Potassium 3.9 mmol/L (3.3-5.1); Salicylate < 5.0 mg/dL (15-30); Sodium 144 mmol/L (135-145); Total Protein 6.9 g/dL (6.5-8.0)
--- NOTE | 2023-09-23 04:43 | ED_ITS ---
HPI - General Adult General Chief complaint: Psychiatric Symptoms Stated complaint: SI with no plan Time Seen by Provider: 09/23/23 04:43 History of Present Illness ED Provider: Casa AMANDA narrative: The patient is a 48-year-old person who arrived to the emergency room by walking. At triage they indicated they were feeling suicidal. They were having thoughts about possibly jumping off a bridge. The patient denied alcohol or other drugs tonight. The patient was also complaining of a blister on the lateral aspect of the patient's left foot near the heel. The patient does a lot of walking. Related Data Home Medications ?Medication ?Instructions ?Recorded ?Confirmed lithium carbonate 300 mg capsule 300 mg PO BID 09/07/23 09/23/23 Allergies Allergy/AdvReac Type Severity Reaction Status Date / Time nicotine [From NICODERM CQ] Allergy Mild SHORTNESS Verified 09/23/23 02:43 OF BREATH ketchup [KETCHUP] Allergy Unknown RASH Verified 09/23/23 02:43 onion [ONION] Allergy Unknown RASH Verified 09/23/23 02:43 tomato [TOMATO] Allergy Unknown RASH Verified 09/23/23 02:43 Review of Systems 2 Review of Systems: Yes all other systems are reviewed and are negative [facility] Past Medical History Medical History Transgender Personality disorder Bipolar 1 disorder Social History Social History Unable to assess alcohol history related to: Refusing to respond Alcohol intake: never Patient Tobacco Use Status: Never used Tobacco Smoked in Last 30 Days: Yes Use of substances other than those prescribed or required for medical reasons: Yes Substance Use Type: Crack/Cocaine Substance Use Frequency: Chronic Longstanding Last Used Substance: Days (ago) Advance Directives: No Advance Directives Information Provided: No Physical Exam ED Vital Signs: Vital Signs - 24 hr 09/23/23 02:42 Temperature 97.9 F Pulse Rate 57 Respiratory Rate 18 Blood Pressure 106/68 Pulse Oximetry 98 Oxygen Delivery Method Room Air BMI result Body Mass Index 25.2 Const Other: The patient was sleeping and seemed very reluctant to respond to my questions. With some gentle shaking the patient yelled ?leave me alone? but did not open the eyes or engage in any other conversation. The patient did not seem in any distress. HENMT Other: Face was symmetrical. Mucous membranes were moist. Eyes Other: The patient opened their eyes only very briefly. No apparent scleral icterus or other ocular abnormality. Neck Other: No neck swelling. Resp Effort & Inspection: normal respiratory effort Auscultation: clear to auscultation bilaterally Cardio Rate: regular rate Rhythm: regular rhythm Heart sounds: S1 normal heart sound present and S2 normal heart sound present GI Other: The abdomen was soft and not apparently tender Skin Other: There is a fairly large blister on the lateral aspect of the left forefoot above the heel. It is about 2 cm in diameter. It is soft. The blister is intact. Neuro Other: The patient was sleeping and resisted efforts to entered to conversation. It was my impression that the patient was volitionally keeping the eyes closed and appearing to sleep. The patient did not seem to have any cranial nerve deficit. The patient seemed to have symmetrical tone in the extremities. Extrem Other: The patient has a large blister on the left foot near the heel. No calf swelling or tenderness. No peripheral edema. Medical Decision Making Medical Decision Making MDM Narrative: The patient is a 48-year-old person who comes to the emergency room complaining of suicidal ideation. When I attempted to interview the patient the patient seemed to be playing possum. The patient has unremarkable vital signs. The patient has frequent ER visits. I suspect the patient is here as much for chcf as for anything else. The patient is medically clear for evaluation by the care team. A care team consult has been placed. Lab Data 09/23/23 03:09 09/23/23 03:09 Labs: Lab Results 09/23/23 Range/Units 03:09 WBC 10.1 (4.8-10.8) X10*3/uL RBC 4.50 L (4.60-5.80) X10*6/uL Hgb 14.0 (14.0-18.0) g/dl Hct 39.9 L (42.0-52.0) % MCV 88.7 (80.0-98.0) fL MCH 31.1 (27.0-33.0) pg MCHC 35.1 (31.0-36.0) g/dl RDW 12.8 (11.0-16.0) % Plt Count 264 (160-400) X10*3/uL MPV 9.9 (9.4-12.4) fL Immature Gran % (Auto) 0.2 (0.0-0.4) % Neut % (Auto) 60.9 (45-73) % Lymph % (Auto) 25.2 (20-40) % [place] % (Auto) 8.9 (2-11) % Eos % (Auto) 4.1 H (0-4) % Baso % (Auto) 0.7 (0-2) % Lymph # (Auto) 2.6 (1.2-4.9) X10*3/uL [place] # (Auto) 0.9 (0.1-1.2) X10*3/uL Eos # (Auto) 0.4 (0.0-0.4) X10*3/uL Baso # (Auto) 0.1 (0.0-0.2) X10*3/uL Abs Immat Gran (auto) 0.02 (0.00-0.03) X10*3/uL Absolute Neuts (auto) 6.2 (2.0-8.3) x10*3/uL Absolute Nucleated RBC 0.000 (0.0-0.012) X10*3/uL Nucleated RBC % (auto) 0.0 (0.0-0.2) /100WBC Sodium 144 (135-145) mmol/L Potassium 3.9 (3.3-5.1) mmol/L Chloride 111 H (96-108) mmol/L Carbon Dioxide 24 (22-29) mmol/L Anion Gap 13 (12-20) BUN 17 H (9-16) mg/dL Creatinine 0.73 (0.5-1.4) mg/dL Estim Creat Clear Calc 133.2 Estimated GFR > 60 Random Glucose 94 (60-115) mg/dL Calcium 9.4 (8.4-10.2) mg/dL Total Bilirubin 0.6 (0.0-1.0) mg/dL AST 25 (5-37) U/L ALT 19 (0-40) U/L Alkaline Phosphatase 76 (39-117) U/L Total Protein 6.9 (6.5-8.0) g/dL Albumin 4.0 (3.5-5.0) g/dL Salicylates < 5.0 L (15-30) mg/dL Acetaminophen < 3 (<30) mcg/mL Ethyl Alcohol < 10 mg/dL Discharge Plan Discharge Clinical Impression: Depression Patient Disposition: Still a Patient Prescriptions: No Action lithium carbonate 300 mg capsule 300 mg PO BID Interventions: [place]-Suicide Risk Severity Scale Last Done: 09/23/23 02:59 Print Language: Montenegrin
--- NOTE | 2023-09-23 07:45 | PC.NURSE ---
Assumed care of patient at 0645. Patient is observed resting quietly in their bed. No unsafe behaviors observed at this time. No signs of distress observed, breathing is even and unlabored.
[2023-09-23 08:00] VITALS: BP 109/62; PULSE 57; RESP 16; TEMP 36.6; O2SAT 97
[2023-09-23 13:10] LABS: Amphetamine Screen Urine Not Detected (Not Detect); Barbiturates, Urine Not Detected (Not Detect); Benzodiazepines Screen Urine Not Detected (Not Detect); Buprenorphine Scr Not Detected (Not Detect); Cannabinoid Screen Urine Not Detected (Not Detect); Cocaine Screen Urine POSITIVE (Not Detect); Fentanyl, urine Not Detected (Not Detect); Methadone Screen, Urine Not Detected (Not Detect); Opiate Screen Urine Not Detected (Not Detect); Oxycodone Screen Urine Not Detected (Not Detect); Phencyclidine Screen Urine Not Detected (Not Detect)
[2023-09-23 17:26] VITALS: BP 113/68; PULSE 50; RESP 20; TEMP 36.9; O2SAT 98
--- NOTE | 2023-09-23 19:07 | PC.NURSE ---
patient appears to remain asleep at present respirations are even and unlabored patient appears in no distress
[2023-09-24 00:09] VITALS: BP 129/80; PULSE 68; RESP 16; TEMP 36.8; O2SAT 96
[2023-09-24] MEDS: Ibuprofen 600 MG TABLET PO ×2 (00:11→12:57)
[2023-09-24] MEDS: Acetaminophen 325 MG TABLET 975 MG PO (02:13)
[2023-09-24] MEDS: Ketorolac Tromethamine 30 MG/ML VIAL IM (03:42)
--- NOTE | 2023-09-24 04:08 | PC.NURSE ---
client over last 2 hours expressed discomfort over dental pain, firstly receiving ibuprofen then tylenol, t/w sought out oragel which was unavailable however toradol was offered by provider and administered,pending effect. client expressed (seemingly impulsively) desire to go use drugs to treat discomfort and thereafter client seemed restless in behavior pod.
--- NOTE | 2023-09-24 04:52 | PC.NURSE ---
client asked to speak to physician, message relayed, response relayed to client.
--- NOTE | 2023-09-24 07:45 | PC.NURSE ---
Assumed care of patient at 0645, patient appears to be resting on bed in no apparent distress, ambulated to bathroom without issue. Pending care re-evaluation this am
[2023-09-24] MEDS: Lithium Carbonate 300 MG CAPSULE PO (08:02)
[2023-09-24] MEDS: Acetaminophen 325 MG TABLET 650 MG PO (12:56)
--- NOTE | 2023-09-24 14:15 | MHC.CARE ---
CARE Team notifed Dr. Medrano Pt is requesting to be discharged.
[2023-09-24 14:19] VITALS: BP 102/84; PULSE 87; RESP 16; TEMP 37.2; O2SAT 97
== END 2023-09-24 14:21 | disposition home or self-care (01) ==
PROVIDERS: Emergency Provider Emergency Medicine
DX: F32.A Depression, unspecified (principal); R45.851 Suicidal ideations; Z79.899 Other long term (current) drug therapy
CPT/HCPCS: 36415; 80053; 80143; 80179; 80307; 85025; 96372; 99285; J1885; S9485

== ENCOUNTER 2023-11-12 22:36 | Emergency (ER) | payer MEDICAID, SELFPAY ==
[2023-11-12 22:37] VITALS: BP 134/68; PULSE 90; RESP 18; TEMP 36.8; O2SAT 95; BMI 24.3
[2023-11-12 22:52] LABS: MANUAL DIFF FLAG NO
[2023-11-12 22:54] LABS: Basophils Absolute Auto 0.1 X10*3/uL (0.0-0.2); Basophils Percent Auto 0.4 % (0-2); Eosinophils Percent Auto 0.1 % (0-4); Hemoglobin 14.9 g/dl (14.0-18.0); Imm Gran Abs Auto 0.07 X10*3/uL (0.00-0.03); Imm Gran Pct Auto 0.4 % (0.0-0.4); Lymphocytes Absolute Auto 1.5 X10*3/uL (1.2-4.9); Mean Corpuscular HGB Conc 34.7 g/dl (31.0-36.0); Mean Corpuscular Hemoglobin 30.8 pg (27.0-33.0); Mean Corpuscular Volume 88.8 fL (80.0-98.0); Mean Platelet Volume 10.4 fL (9.4-12.4); Monocytes Absolute Auto 1.3 X10*3/uL (0.1-1.2); Monocytes Percent Auto 7.8 % (2-11); Neutrophils Absolute Auto 13.3 x10*3/uL (2.0-8.3); Neutrophils Percent Auto 82.3 % (45-73); Platelet Count 253 X10*3/uL (160-400); Red Blood Count 4.84 X10*6/uL (4.60-5.80); Red Cell Distribution Width 12.2 % (11.0-16.0); White Blood Count 16.1 X10*3/uL (4.8-10.8)
[2023-11-12 23:09] LABS: Ethanol < 10 mg/dL
[2023-11-12 23:10] LABS: Alanine Aminotransferase 19 U/L (0-40); Albumin Level 4.3 g/dL (3.5-5.0); Alkaline Phosphatase 77 U/L (39-117); Anion Gap 15 (12-20); Aspartate Amino Transferase 22 U/L (5-37); Blood Urea Nitrogen 23 mg/dL (9-16); Calcium 9.5 mg/dL (8.4-10.2); Carbon Dioxide 24 mmol/L (22-29); Chloride 108 mmol/L (96-108); Creatinine Clr Calc Pharmacy 118.6; Estimated Glomerular Filt Rate > 60; Glucose Random 89 mg/dL (60-115); Potassium 4.2 mmol/L (3.3-5.1); Sodium 143 mmol/L (135-145); Total Protein 7.7 g/dL (6.5-8.0)
[2023-11-12 23:11] LABS: Acetaminophen LAB < 3 mcg/mL (<30); Salicylate < 5.0 mg/dL (15-30)
[2023-11-12 23:36] LABS: Lithium 0.13 mmol/L (0.60-1.20)
--- NOTE | 2023-11-13 00:03 | ED_ITS ---
HPI - General Adult General Chief complaint: Psychiatric Symptoms Stated complaint: SI Time Seen by Provider: 11/12/23 22:54 Source: patient, RN notes reviewed and old records reviewed Mode of arrival: ambulatory Limitations: no limitations History of Present Illness ED Provider: Ethel AMANDA narrative: 48-year-old male who identifies as female with past medical history significant for bipolar disorder and schizophrenia presents for evaluation of depression with suicidal ideation. Patient reports that [facility] where she has been for the last few months She states that she found out that her house is now ?gone and sold. She states that she has no where else to go This is causing her to feel suicidal She has a plan to overdose on ?any drugs I can get. ? Patient admits using both cocaine and fentanyl earlier today She is currently only prescribed lithium as a mood stabilizer which she reports being compliant with up until this morning but has not received her evening dose today Denies any somatic complaints at this time Related Data Home Medications ?Medication ?Instructions ?Recorded ?Confirmed lithium carbonate 300 mg capsule 300 mg PO BID 09/07/23 11/12/23 Allergies Allergy/AdvReac Type Severity Reaction Status Date / Time nicotine [From NICODERM CQ] Allergy Mild SHORTNESS Verified 11/12/23 22:40 OF BREATH ketchup [KETCHUP] Allergy Unknown RASH Verified 11/12/23 22:40 onion [ONION] Allergy Unknown RASH Verified 11/12/23 22:40 tomato [TOMATO] Allergy Unknown RASH Verified 11/12/23 22:40 Review of Systems 2 Constitutional: Constitutional: Denies body ache(s), Denies chills and Denies fever(s) Eyes: Eyes: Denies blurry vision ENT: Denies sore throat Cardiovascular: Cardiovascular: Denies chest pain and Denies dyspnea Respiratory: Respiratory: Denies cough and Denies dyspnea Gastrointestinal: Gastrointestinal: Denies abdominal pain, Denies nausea and Denies vomiting Musculoskeletal: Musculoskeletal: Denies back pain Integumentary/Breasts: Skin/Breast: Denies rash Psychiatric: Psychiatric: Reports depression, Denies auditory hallucinations, Denies visual hallucinations and Reports suicidal ideation PMF Past Medical History Medical History Transgender Personality disorder Bipolar 1 disorder Social History Social History Unable to assess alcohol history related to: Refusing to respond Alcohol intake: never Patient Tobacco Use Status: Never used Tobacco Substance Use Type: Crack/Cocaine Advance Directives: No Advance Directives Information Provided: No Do you have a plan to hurt others: No Plan Physical Exam ED Vital Signs: Vital Signs - 24 hr 11/12/23 22:37 Temperature 98.2 F Pulse Rate 90 Respiratory Rate 18 Blood Pressure 134/68 Pulse Oximetry 95 Oxygen Delivery Method Room Air BMI result Body Mass Index 24.3 Const General: healthy appearing, comfortable, no acute distress, alert and awake Nutritional Appearance: well nourished Orientation/consciousness: patient oriented x3 HENMT Head: Yes normocephalic and Yes atraumatic Eyes Eyelids: Yes eyelids normal Conjunctivae: conjunctivae normal Sclerae: sclerae normal Corneas: corneas normal Pupils: Equal, round and reactive pupils present EOM: EOMs intact bilaterally Neck Neck: Yes full ROM Resp Effort & Inspection: normal respiratory effort, able to speak in complete sentences and not labored Cardio Rate: regular rate Rhythm: regular rhythm GI Inspection: No distended Palpation (GI): Soft to palpation, not firm, nontender, no guarding and not rigid Skin General skin exam: elasticity normal Neuro General: patient oriented x3 Cranial nerves: Yes Equal, round and reactive pupils present and Yes Bilaterally intact EOM present Cognition (Neuro): normal cognition Extrem Other: Moving all extremities well without any obvious deformities Course Reevaluation(s) Reevaluation #1: Patient is now medically cleared for care team evaluation. Time: 00:00 Reevaluation #2: Patient is seen by the care team and is deemed stable for discharge to respite tomorrow. Patient placed in physician observation status Time: 00:09 Medications Administered Discontinued Medications Generic Name Dose Route Start Last Admin Trade Name Freq PRN Reason Stop Dose Admin Diphenhydramine HCl 50 mg 11/13/23 00:02 11/13/23 00:07 Diphenhydramine Hcl 25 Mg Capsule PO 11/13/23 00:03 50 mg ONCE ONE Administration Medical Decision Making Medical Decision Making MDM Narrative: 48-year-old male to female transgender patient presents for evaluation suicidal ideation. She currently denies any somatic complaints. Line for basic labs, medical workup and likely care team evaluation Differential Diagnosis Differential Diagnoses: The differential diagnosis associated with the presentation includes Depression Suicidal ideation Substance abuse Polysubstance abuse Bipolar disorder Personality disorder Lab Data MDM Lab Attestation statement: I reviewed the patient's lab results. Patient has a leukocytosis to 16.1 with a left shift. This may be reactive to substance abuse earlier today. No anemia. Normal platelet count. No significant electrolyte abnormalities. 11/12/23 22:48 11/12/23 22:48 Labs: Lab Results 11/12/23 11/12/23 Range/Units 22:48 23:24 WBC 16.1 H (4.8-10.8) X10*3/uL RBC 4.84 (4.60-5.80) X10*6/uL Hgb 14.9 (14.0-18.0) g/dl Hct 43.0 (42.0-52.0) % MCV 88.8 (80.0-98.0) fL MCH 30.8 (27.0-33.0) pg MCHC 34.7 (31.0-36.0) g/dl RDW 12.2 (11.0-16.0) % Plt Count 253 (160-400) X10*3/uL MPV 10.4 (9.4-12.4) fL Immature Gran % (Auto) 0.4 (0.0-0.4) % Neut % (Auto) 82.3 H (45-73) % Lymph % (Auto) 9.0 L (20-40) % [place] % (Auto) 7.8 (2-11) % Eos % (Auto) 0.1 (0-4) % Baso % (Auto) 0.4 (0-2) % Lymph # (Auto) 1.5 (1.2-4.9) X10*3/uL [place] # (Auto) 1.3 H (0.1-1.2) X10*3/uL Eos # (Auto) 0.0 (0.0-0.4) X10*3/uL Baso # (Auto) 0.1 (0.0-0.2) X10*3/uL Abs Immat Gran (auto) 0.07 H (0.00-0.03) X10*3/uL Absolute Neuts (auto) 13.3 H (2.0-8.3) x10*3/uL Absolute Nucleated RBC 0.000 (0.0-0.012) X10*3/uL Nucleated RBC % (auto) 0.0 (0.0-0.2) /100WBC Sodium 143 (135-145) mmol/L Potassium 4.2 (3.3-5.1) mmol/L Chloride 108 (96-108) mmol/L Carbon Dioxide 24 (22-29) mmol/L Anion Gap 15 (12-20) BUN 23 H (9-16) mg/dL Creatinine 0.82 (0.5-1.4) mg/dL Estim Creat Clear Calc 118.6 Estimated GFR > 60 Random Glucose 89 (60-115) mg/dL Calcium 9.5 (8.4-10.2) mg/dL Total Bilirubin 1.0 (0.0-1.0) mg/dL AST 22 (5-37) U/L ALT 19 (0-40) U/L Alkaline Phosphatase 77 (39-117) U/L Total Protein 7.7 (6.5-8.0) g/dL Albumin 4.3 (3.5-5.0) g/dL Salicylates < 5.0 L (15-30) mg/dL Acetaminophen < 3 (<30) mcg/mL [place] 0.13 L (0.60-1.20) mmol/L Ethyl Alcohol < 10 mg/dL Discharge Plan Discharge Clinical Impression: Suicidal ideation Patient Disposition: Still a Patient Instructions: Suicide Prevention (ED) Additional Instructions: Take your lithium as prescribed. Return for new or worsening symptoms Prescriptions: No Action lithium carbonate 300 mg capsule 300 mg PO BID Print Language: Chinese
[2023-11-13] MEDS: diphenhydrAMINE HCL 25 MG CAPSULE 50 MG PO (00:07)
[2023-11-13] MEDS: Lithium Carbonate 300 MG CAPSULE PO ×2 (00:27→10:09)
--- NOTE | 2023-11-13 02:12 | MHC.CARE ---
CARE Team has not made an official referral to [facility] as the pt doesn't have insurance at this time. Once the pt is able to get her insurance reinstated then a referral will be made at that time.
--- NOTE | 2023-11-13 06:41 | PC.NURSE ---
Patient slept through the night, no distress observed/reported, med and meal compliant, no behavior and safety concerns, disposition per care team respite bed search, VSS, will continue to monitor
[2023-11-13 10:28] LABS: Appearance Urine Clear; Color Urine Yellow; Glucose Urine UA Negative (Negative); Leukocyte Esterase Urine Negative (Negative); Nitrite Urine Negative (Negative); PH 5.5 (5.0-9.0); Specific Gravity - Urine 1.025 (1.005-1.025); Urine Blood Negative (Negative); Urine Ketones Negative (Negative); Urine Protein Negative (Neg-Trace)
[2023-11-13 10:37] LABS: Amphetamine Screen Urine Not Detected (Not Detect); Barbiturates, Urine Not Detected (Not Detect); Benzodiazepines Screen Urine Not Detected (Not Detect); Buprenorphine Scr Not Detected (Not Detect); Cannabinoid Screen Urine Not Detected (Not Detect); Cocaine Screen Urine POSITIVE (Not Detect); Fentanyl, urine POSITIVE (Not Detect); Methadone Screen, Urine Not Detected (Not Detect); Opiate Screen Urine Not Detected (Not Detect); Oxycodone Screen Urine Not Detected (Not Detect); Phencyclidine Screen Urine Not Detected (Not Detect)
[2023-11-13 12:08] VITALS: BP 119/54; PULSE 54; RESP 14; TEMP 36.6; O2SAT 98
== END 2023-11-13 12:13 | disposition home or self-care (01) ==
PROVIDERS: Physician Assistant; Emergency Provider Emergency Medicine
DX: F33.1 Major depressive disorder, recurrent, moderate (principal); R45.851 Suicidal ideations; F14.10 Cocaine abuse, uncomplicated; F43.9 Reaction to severe stress, unspecified; Z51.81 Encounter for therapeutic drug level monitoring; Z79.899 Other long term (current) drug therapy
CPT/HCPCS: 36415; 80053; 80143; 80178; 80179; 80307; 81003; 85025; 99284; S9485

== ENCOUNTER 2023-12-12 08:05 | Emergency (ER) | payer MEDICAID, SELFPAY ==
--- NOTE | 2023-12-12 08:10 | PC.NURSE ---
pt brought to the poc with security.
[2023-12-12 08:15] VITALS: BP 108/61; PULSE 61; RESP 16; TEMP 36.2; O2SAT 98; BMI 25.1
[2023-12-12 08:30] VITALS: BP 108/61; PULSE 61; RESP 16; TEMP 36.2; O2SAT 98
--- NOTE | 2023-12-12 08:30 | PC.NURSE ---
fawn requesting food after being changed over, provided with sandwich and beverage upon request
[2023-12-12 08:48] LABS: MANUAL DIFF FLAG NO
[2023-12-12 08:51] LABS: Basophils Absolute Auto 0.1 X10*3/uL (0.0-0.2); Basophils Percent Auto 0.6 % (0-2); Eosinophils Absolute Auto 0.7 X10*3/uL (0.0-0.4); Eosinophils Percent Auto 8.3 % (0-4); Hematocrit 39.9 % (42.0-52.0); Hemoglobin 13.9 g/dl (14.0-18.0); Imm Gran Abs Auto 0.02 X10*3/uL (0.00-0.03); Imm Gran Pct Auto 0.3 % (0.0-0.4); Lymphocytes Absolute Auto 2.7 X10*3/uL (1.2-4.9); Lymphocytes Percent Auto 33.7 % (20-40); Mean Corpuscular HGB Conc 34.8 g/dl (31.0-36.0); Mean Corpuscular Hemoglobin 31.2 pg (27.0-33.0); Mean Corpuscular Volume 89.5 fL (80.0-98.0); Mean Platelet Volume 10.1 fL (9.4-12.4); Monocytes Percent Auto 12.6 % (2-11); Neutrophils Absolute Auto 3.5 x10*3/uL (2.0-8.3); Neutrophils Percent Auto 44.5 % (45-73); Platelet Count 260 X10*3/uL (160-400); Red Blood Count 4.46 X10*6/uL (4.60-5.80); Red Cell Distribution Width 12.4 % (11.0-16.0); White Blood Count 7.9 X10*3/uL (4.8-10.8)
--- NOTE | 2023-12-12 08:59 | MHC.CARE ---
CARE Team attempts to assess pt.? Pt reports she has no intent on engaging/participating in the assessment as she ?has not been medically cleared by a doctor and that?s illegal.?? Pt also stated ?You guys always kick me out so I?m not participating in YOUR assessment.?? She also stated ?I?ll just come back if you kick me out.?
[2023-12-12 09:03] LABS: Alanine Aminotransferase 21 U/L (0-40); Albumin Level 3.7 g/dL (3.5-5.0); Alkaline Phosphatase 74 U/L (39-117); Anion Gap 12 (12-20); Aspartate Amino Transferase 31 U/L (5-37); Bilirubin Total 0.9 mg/dL (0.0-1.0); Blood Urea Nitrogen 19 mg/dL (9-16); Calcium 8.8 mg/dL (8.4-10.2); Carbon Dioxide 25 mmol/L (22-29); Chloride 108 mmol/L (96-108); Creatinine Clr Calc Pharmacy 123.1; Estimated Glomerular Filt Rate > 60; Glucose Random 103 mg/dL (60-115); Potassium 3.1 mmol/L (3.3-5.1); Sodium 142 mmol/L (135-145); Total Protein 6.5 g/dL (6.5-8.0)
--- NOTE | 2023-12-12 09:08 | PC.NURSE ---
patient evaluated by MD, care team consult placed, upon care team entering room, patient refusing to be seen by care team, states im not going to be seen by that cunt, i hate her educated patient that it is inappropriate behavior and will not be tolerated on unit, patient refusing to participate in care at this time, MD to be made aware
--- NOTE | 2023-12-12 09:19 | MHC.CARE ---
Pt was seen by ED provider and medically cleared, an order was placed for CARE Team to assess pt.? CARE Team approached pt, advised her she had been medically cleared by the ED provider and CARE Team was asked to see her. Pt reported ?I?m not answering any questions until I see a psychiatrist because you people don?t do your fucking job.?? When asked for clarification, asking if she was refusing to participate in an assessment pt stated ?I?m not refusing; I?m just not answering any questions.?? It was explained to pt that refusing to answer questions is scarlett to refusing to participate as an assessment is inquiry heavy.? ED provider has been notified of her refusal. While CARE Team was speaking with the provider, pt exited her room and caused a disruption, using vulgarities on staff in the pod.
--- NOTE | 2023-12-12 09:23 | ED.PSYCH ---
HPI - Psych General Chief Complaint: Psychiatric Symptoms Stated Complaint: Crisis Time Seen by Provider: 12/12/23 08:20 History of Present Illness HPI Narrative: Patient is a 48-year-old male presented today with having suicidal ideation after using cocaine. Patient has intermittent thoughts about wanting to jump off the bridge. Has intermittent thoughts about wanting to stab himself. Patient is uncooperative in giving additional details. Very hungry wants food and drinks. Related Data Home Medications ?Medication ?Instructions ?Recorded ?Confirmed lithium carbonate 300 mg capsule 300 mg PO BID 09/07/23 11/12/23 Allergies Allergy/AdvReac Type Severity Reaction Status Date / Time nicotine [From NICODERM CQ] Allergy Mild SHORTNESS Verified 12/12/23 08:18 OF BREATH ketchup [KETCHUP] Allergy Unknown RASH Verified 12/12/23 08:18 onion [ONION] Allergy Unknown RASH Verified 12/12/23 08:18 tomato [TOMATO] Allergy Unknown RASH Verified 12/12/23 08:18 Review of Systems Review of Systems: Refused to answer review of systems [facility] Past Medical History Attestation statement: The following information was validated with the patient. Medical History Transgender Personality disorder Bipolar 1 disorder Social History Social History Unable to assess alcohol history related to: Refusing to respond Alcohol intake: current Alcohol intake frequency: does not drink Alcohol type: hard liquor Patient Tobacco Use Status: Never used Tobacco Smoked in Last 30 Days: Yes Use of substances other than those prescribed or required for medical reasons: Yes Substance Use Type: Crack/Cocaine Last Used Substance: Days (ago) Any prior treatment program specific to substance use: No Advance Directives: No Do you have a plan to hurt others: No Plan Physical Exam Vital Signs: Vital Signs: Last Vital Signs Temp 97.1 F 12/12/23 08:30 Pulse 61 12/12/23 08:30 Resp 16 12/12/23 08:30 BP 108/61 12/12/23 08:30 Pulse Ox 98 12/12/23 08:30 O2 Del Method Room Air 12/12/23 08:30 BMI result Body Mass Index 25.1 Appearance: Alert. Oriented X3. No acute distress. Eyes: Pupils equal, round and reactive to light. ENT: Pharynx normal. Neck: Normal inspection. Neck supple. No lymph nodes noted. No crepitus CVS: Normal heart rate and rhythm. Pulses normal. Normal S1 and S2 Respiratory: No respiratory distress. Breath sounds normal. No Wheezing. No rales Abdomen: Soft and nontender. No rigidity. No distention. good BS x4 Skin: Skin warm and dry. Normal skin color. Normal skin turgor. Extremities: No lower extremity edema. Neurovascular intact to all extremities. No Lacerations. No Rash Neuro: Oriented X 3. No motor deficit. No sensory deficit. Moving all extermities. No slurred speech Medical Decision Making Medical Decision Making MDM Narrative: Will get crisis to evaluate patient. Food and drinks was offered. Currently in stable condition. Lab Data 12/12/23 08:44 12/12/23 08:44 Labs: Lab Results 12/12/23 Range/Units 08:44 WBC 7.9 (4.8-10.8) X10*3/uL RBC 4.46 L (4.60-5.80) X10*6/uL Hgb 13.9 L (14.0-18.0) g/dl Hct 39.9 L (42.0-52.0) % MCV 89.5 (80.0-98.0) fL MCH 31.2 (27.0-33.0) pg MCHC 34.8 (31.0-36.0) g/dl RDW 12.4 (11.0-16.0) % Plt Count 260 (160-400) X10*3/uL MPV 10.1 (9.4-12.4) fL Immature Gran % (Auto) 0.3 (0.0-0.4) % Neut % (Auto) 44.5 L (45-73) % Lymph % (Auto) 33.7 (20-40) % [place] % (Auto) 12.6 H (2-11) % Eos % (Auto) 8.3 H (0-4) % Baso % (Auto) 0.6 (0-2) % Lymph # (Auto) 2.7 (1.2-4.9) X10*3/uL [place] # (Auto) 1.0 (0.1-1.2) X10*3/uL Eos # (Auto) 0.7 H (0.0-0.4) X10*3/uL Baso # (Auto) 0.1 (0.0-0.2) X10*3/uL Abs Immat Gran (auto) 0.02 (0.00-0.03) X10*3/uL Absolute Neuts (auto) 3.5 (2.0-8.3) x10*3/uL Absolute Nucleated RBC 0.000 (0.0-0.012) X10*3/uL Nucleated RBC % (auto) 0.0 (0.0-0.2) /100WBC Sodium 142 (135-145) mmol/L Potassium 3.1 L D (3.3-5.1) mmol/L Chloride 108 (96-108) mmol/L Carbon Dioxide 25 (22-29) mmol/L Anion Gap 12 (12-20) BUN 19 H (9-16) mg/dL Creatinine 0.79 (0.5-1.4) mg/dL Estim Creat Clear Calc 123.1 Estimated GFR > 60 Random Glucose 103 (60-115) mg/dL Calcium 8.8 D (8.4-10.2) mg/dL Total Bilirubin 0.9 (0.0-1.0) mg/dL AST 31 (5-37) U/L ALT 21 (0-40) U/L Alkaline Phosphatase 74 (39-117) U/L Total Protein 6.5 (6.5-8.0) g/dL Albumin 3.7 (3.5-5.0) g/dL Ethyl Alcohol < 10 mg/dL Discharge Plan Discharge Clinical Impression: Suicide ideation, Polysubstance abuse Patient Disposition: Still a Patient Prescriptions: No Action lithium carbonate 300 mg capsule 300 mg PO BID Interventions: [place]-Suicide Risk Severity Scale Last Done: 12/12/23 08:25 Print Language: [place]
--- NOTE | 2023-12-12 09:35 | PC.NURSE ---
patient out of room verbally aggressive with staff, demanding more food, attempted to educate patient that the provider ordered no more food until patient is seen by care team, patient states guess i'll just go back to bed then patient went back to room, immediately came back out of room and began yelling at staff again, stating we are breaking the law and legally required to give me food attempted to educate patient that she got food upon her arrival an if she wants more we are happy to provide her with more after she speaks to the care team, patient began calling this advertising copy writer a luh adams, you want to be a bitch i can be a bitch too patient again educated that that type of behavior will not be tolerated or rewarded in this unit. she will get more food when she speaks with care team, patient reiterates im not talking to the luh care team cunts youre all cunts, im not talking to them, get me a nurse clinical trial data manager credit charge authorizer to be made aware of behavior. safety maintained on unit at this time
--- NOTE | 2023-12-12 09:40 | PC.NURSE ---
patient refusing to provide urine sample until provided with MD michelle aware
--- NOTE | 2023-12-12 09:54 | PC.NURSE ---
care team at bedside again to attempt to speak with patient, patient states if you discharge me because i'm not talking to anyone then i'm going to go out into the parking lot and cut my wrists, you cant refuse me food patient had knife in belongings, security made aware that patient is not to get knife back if discharged.
--- NOTE | 2023-12-12 10:07 | PC.NURSE ---
Psychiatry at bedside to attempt to speak with patient, patient continues to be resistive to care, states to DIAMOND PICKER youre all fucking cunts i'm not talking to anyone DIAMOND PICKER attempted to educate patient that speaking with the care team is necessary as part of their treatment. patient continues to be verbally abusive to staff. charge master coordinator made aware. care team states they will try one more time to speak with patient. MD made aware of patient behavior
--- NOTE | 2023-12-12 10:15 | PC.NURSE ---
care team at bedside to attempt to evaluate patient again
--- NOTE | 2023-12-12 10:24 | PC.NURSE ---
patient completed care team assessment, to be provided with breakfast tray at this time per agreement
--- NOTE | 2023-12-12 10:29 | PC.NURSE ---
patient provided with warm breakfast tray
--- NOTE | 2023-12-12 14:34 | PC.NURSE ---
patient resting on stretcher at this time, respirations even and unlabored, provided with lunch tray, consumed 100% of tray and also requested peanut butter and jelly sandwich and milk, patient was provided with food at request. offering no complaints at this time, presenting now calm and cooperative. plan of care remains ongoing
--- NOTE | 2023-12-12 14:40 | MHC.CARE ---
Pt is accepted to [address] [address] for today 12/12/23. Accepting is Dr. Moe. ETA is [facility]
--- NOTE | 2023-12-12 14:43 | PC.NURSE ---
inpatient unit called, states they have placement for patient but cannot take her unless she provides urine, patient educated on need for urine sample and provided with cup, patient states they are unable to provide sample at this time, will try again at a later time
--- NOTE | 2023-12-12 14:48 | PC.NURSE ---
lab called, will add on [facility] for [facility] at [facility] pending JARQUIN, told bed search patient has been provided cup and educated on need for sample, [facility] aparently wants patient sooner rather than later. allie attempt again to get urine sample from patient and update on plan
[2023-12-12 15:00] LABS: Ethanol < 10 mg/dL
--- NOTE | 2023-12-12 16:01 | PC.NURSE ---
spoke with rimma maxwell to book ambulance, ambulance booked with clerk secretary
[2023-12-12 16:07] LABS: Appearance Urine Cloudy; Color Urine Yellow; Glucose Urine UA Negative (Negative); Leukocyte Esterase Urine Negative (Negative); Nitrite Urine Negative (Negative); PH 6.5 (5.0-9.0); Specific Gravity - Urine 1.015 (1.005-1.025); Urine Blood Negative (Negative); Urine Ketones Negative (Negative); Urine Protein Negative (Neg-Trace)
[2023-12-12 16:18] LABS: Amphetamine Screen Urine Not Detected (Not Detect); Barbiturates, Urine Not Detected (Not Detect); Benzodiazepines Screen Urine Not Detected (Not Detect); Buprenorphine Scr Not Detected (Not Detect); Cannabinoid Screen Urine Not Detected (Not Detect); Cocaine Screen Urine POSITIVE (Not Detect); Fentanyl, urine Not Detected (Not Detect); Methadone Screen, Urine Not Detected (Not Detect); Opiate Screen Urine Not Detected (Not Detect); Oxycodone Screen Urine Not Detected (Not Detect); Phencyclidine Screen Urine Not Detected (Not Detect)
[2023-12-12 18:43] VITALS: BP 108/61; PULSE 61; RESP 16; TEMP 36.2; O2SAT 98
[2023-12-12 18:45] VITALS: BP 108/61; PULSE 61; RESP 16; TEMP 36.2; O2SAT 98
== END 2023-12-12 18:38 ==
PROVIDERS: Emergency Provider Emergency Medicine Emergency Medical Services
DX: F14.10 Cocaine abuse, uncomplicated (principal); R45.851 Suicidal ideations; Z79.899 Other long term (current) drug therapy; Z51.81 Encounter for therapeutic drug level monitoring
CPT/HCPCS: 36415; 80053; 80307; 81003; 85025; 99285; S9485

== ENCOUNTER 2024-03-04 05:42 | Emergency (ER) | payer MEDICAID, SELFPAY ==
[2024-03-04 05:44] VITALS: BP 108/62; PULSE 67; RESP 20; TEMP 36.9; O2SAT 98; BMI 24.4
[2024-03-04 06:06] LABS: Basophils Absolute Auto 0.1 X10*3/uL (0.0-0.2); Basophils Percent Auto 0.4 % (0-2); Eosinophils Absolute Auto 0.1 X10*3/uL (0.0-0.4); Eosinophils Percent Auto 0.8 % (0-4); Hematocrit 41.8 % (37.0-47.0); Hemoglobin 14.3 g/dl (12.0-16.0); Imm Gran Abs Auto 0.06 X10*3/uL (0.00-0.03); Imm Gran Pct Auto 0.4 % (0.0-0.4); Lymphocytes Absolute Auto 2.6 X10*3/uL (1.2-4.9); Lymphocytes Percent Auto 17.8 % (20-40); MANUAL DIFF FLAG NO; Mean Corpuscular HGB Conc 34.2 g/dl (31.0-35.0); Mean Corpuscular Hemoglobin 30.8 pg (27.0-33.0); Mean Corpuscular Volume 89.9 fL (80.0-98.0); Monocytes Absolute Auto 1.4 X10*3/uL (0.1-1.2); Monocytes Percent Auto 9.6 % (2-11); Neutrophils Absolute Auto 10.3 x10*3/uL (2.0-8.3); Platelet Count 239 X10*3/uL (160-400); Red Blood Count 4.65 X10*6/uL (4.20-5.50); Red Cell Distribution Width 12.5 % (11.0-16.0); White Blood Count 14.4 X10*3/uL (4.8-10.8)
[2024-03-04 06:21] LABS: Alanine Aminotransferase 23 U/L (0-31); Alkaline Phosphatase 65 U/L (39-117); Anion Gap 12 (12-20); Aspartate Amino Transferase 35 U/L (5-31); Blood Urea Nitrogen 17 mg/dL (9-16); Calcium 9.2 mg/dL (8.4-10.2); Carbon Dioxide 28 mmol/L (22-29); Chloride 104 mmol/L (96-108); Creatinine Clr Calc Pharmacy 103.6; Estimated Glomerular Filt Rate > 60; Ethanol < 10 mg/dL; Glucose Random 93 mg/dL (60-115); Potassium 4.1 mmol/L (3.3-5.1); Sodium 140 mmol/L (135-145); Total Protein 6.8 g/dL (6.5-8.0)
[2024-03-04 06:23] LABS: Acetaminophen LAB < 3 mcg/mL (<30); Salicylate < 5.0 mg/dL (15-30)
--- NOTE | 2024-03-04 06:27 | PC.NURSE ---
patient was changed over by t/w and revealed no presence of contraband or injury to patient patient stated their underwear were soiled and asked me to dispose of them
--- NOTE | 2024-03-04 07:42 | ED.PSYCH ---
HPI - Psych General Chief Complaint: Psychiatric Symptoms Stated Complaint: SI Time Seen by Provider: 03/04/24 07:32 Source: patient Limitations: no limitations History of Present Illness HPI Narrative: This is a 48 years old patient presented to the emergency room department with the SI with a plan to cut the wrist complaint: suicidal ideation Onset (ago): day(s) (1) Duration: constant History of same: Yes Relieving factors: none Exacerbating factors: none Context: recent alcohol abuse Associated psychiatric symptoms: none Related Data Home Medications ?Medication ?Instructions ?Recorded ?Confirmed lithium carbonate 300 mg capsule 300 mg PO BID 09/07/23 11/12/23 hydroxyzine HCl 25 mg tablet 25 mg PO Q6H PRN Anxiety 03/04/24 03/04/24 ibuprofen 600 mg tablet 600 mg PO TID 03/04/24 03/04/24 spironolactone 25 mg tablet 25 mg PO BID 03/04/24 03/04/24 Allergies Allergy/AdvReac Type Severity Reaction Status Date / Time nicotine [From NICODERM CQ] Allergy Mild SHORTNESS Verified 03/04/24 05:46 OF BREATH ketchup [KETCHUP] Allergy Unknown RASH Verified 03/04/24 05:46 onion [ONION] Allergy Unknown RASH Verified 03/04/24 05:46 tomato [TOMATO] Allergy Unknown RASH Verified 03/04/24 05:46 Review of Systems Constitutional: Constitutional: Reports no additional constitutional complaints ENT: Reports system reviewed and no additional complaints, except as documented Cardiovascular: Cardiovascular: Reports no additional cardiovascular complaints Psychiatric: Psychiatric: Reports no additional psychiatric complaints [facility] Past Medical History [facility] Narrative: depression/alcohol abuse Medical History Transgender Personality disorder Bipolar 1 disorder Social History Social History Unable to assess alcohol history related to: Refusing to respond Alcohol intake: current Alcohol intake frequency: a few times a month Alcohol type: hard liquor Patient Tobacco Use Status: Never used Tobacco Smoked in Last 30 Days: Yes Use of substances other than those prescribed or required for medical reasons: Yes Substance Use Type: Crack/Cocaine and Marijuana Substance Use Frequency: Chronic Longstanding Advance Directives: No Advance Directives Information Provided: No Do you have a plan to hurt others: No Plan Patient : No Physical Exam Vital Signs: Vital Signs: Last Vital Signs Temp 98.4 F 03/04/24 05:44 Pulse 67 03/04/24 05:44 Resp 16 03/04/24 07:59 BP 108/62 03/04/24 05:44 Pulse Ox 98 03/04/24 05:44 O2 Del Method Room Air 03/04/24 05:44 BMI result Body Mass Index 24.4 Not acute distress Const: General: comfortable and no acute distress Nutritional Appearance: average body habitus Orientation/consciousness: patient oriented x3 HEENT: Head: Yes normal to inspection Ears: hearing grossly normal bilaterally Neck: Neck: Yes normal visual inspection Chest: Chest palpation & inspection: normal inspection of the chest Resp: Effort & Inspection: normal respiratory effort Auscultation: clear to auscultation bilaterally Cardio: Jugular venous distension: no JVD Rate: regular rate Rhythm: regular rhythm GI: Inspection: Yes normal to inspection Palpation (GI): Soft to palpation Auscultation: normal bowel sounds : General: Yes no CVA tenderness Back/Spine/Pelvis: Back: no CVA tenderness Neuro: General: patient oriented x3 Cranial nerves: Yes CN's II-XII intact bilaterally Course Reevaluation(s) Reevaluation #1: Patient was seen by the crisis team, she is well known to the crisis team, she will go to the [facility],she was cleared by crisis Time: 09:03 Medical Decision Making Medical Decision Making MDM Narrative: Patient presented to emergency department with a chief complaint of depression and SI we will get a psychiatric evaluation Differential Diagnosis Differential Diagnoses: The differential diagnosis associated with the presentation includes Bipolar disorder/depression/alcohol abuse Lab Data 03/04/24 06:01 03/04/24 06:01 Labs: Lab Results 03/04/24 03/04/24 Range/Units 06:01 08:02 WBC 14.4 H (4.8-10.8) X10*3/uL RBC 4.65 (4.20-5.50) X10*6/uL Hgb 14.3 (12.0-16.0) g/dl Hct 41.8 (37.0-47.0) % MCV 89.9 (80.0-98.0) fL MCH 30.8 (27.0-33.0) pg MCHC 34.2 (31.0-35.0) g/dl RDW 12.5 (11.0-16.0) % Plt Count 239 (160-400) X10*3/uL MPV 10.0 (9.4-12.3) fL Immature Gran % (Auto) 0.4 (0.0-0.4) % Neut % (Auto) 71.0 (45-73) % Lymph % (Auto) 17.8 L (20-40) % [place] % (Auto) 9.6 (2-11) % Eos % (Auto) 0.8 (0-4) % Baso % (Auto) 0.4 (0-2) % Lymph # (Auto) 2.6 (1.2-4.9) X10*3/uL [place] # (Auto) 1.4 H (0.1-1.2) X10*3/uL Eos # (Auto) 0.1 (0.0-0.4) X10*3/uL Baso # (Auto) 0.1 (0.0-0.2) X10*3/uL Abs Immat Gran (auto) 0.06 H (0.00-0.03) X10*3/uL Absolute Neuts (auto) 10.3 H (2.0-8.3) x10*3/uL Absolute Nucleated RBC 0.000 (0.0-0.012) X10*3/uL Nucleated RBC % (auto) 0.0 (0.0-0.2) /100WBC Sodium 140 (135-145) mmol/L Potassium 4.1 D (3.3-5.1) mmol/L Chloride 104 (96-108) mmol/L Carbon Dioxide 28 (22-29) mmol/L Anion Gap 12 (12-20) BUN 17 H (9-16) mg/dL Creatinine 0.75 (0.5-1.4) mg/dL Estim Creat Clear Calc 103.6 Estimated GFR > 60 Random Glucose 93 (60-115) mg/dL Calcium 9.2 (8.4-10.2) mg/dL Total Bilirubin 1.0 (0.0-1.0) mg/dL AST 35 H (5-31) U/L ALT 23 (0-31) U/L Alkaline Phosphatase 65 (39-117) U/L Total Protein 6.8 (6.5-8.0) g/dL Albumin 4.0 (3.5-5.0) g/dL Urine Color Yellow Urine Appearance Clear Urine pH 6.5 (5.0-9.0) Ur Specific [place] 1.015 (1.005-1.025) Urine Protein Negative (Neg-Trace) mg/dL Urine Glucose (UA) Negative (Negative) mg/dL Urine Ketones Negative (Negative) mg/dL Urine Blood Negative (Negative) Urine Nitrite Negative (Negative) Ur Leukocyte Esterase Negative (Negative) Salicylates < 5.0 L (15-30) mg/dL Urine Opiates Screen Not Detected (Not Detect) Ur Buprenorphine Scrn Not Detected (Not Detect) ng/mL Ur Oxycodone Screen Not Detected (Not Detect) ng/mL Urine Methadone Screen Not Detected (Not Detect) ng/mL Urine Fentanyl Screen Not Detected (Not Detect) Acetaminophen < 3 (<30) mcg/mL Ur Barbiturates Screen Not Detected (Not Detect) Ur Phencyclidine Scrn Not Detected (Not Detect) Ur Amphetamines Screen Not Detected (Not Detect) U Benzodiazepines Scrn Not Detected (Not Detect) Urine Cocaine Screen POSITIVE H (Not Detect) U Marijuana (THC) Screen Not Detected (Not Detect) Ethyl Alcohol < 10 mg/dL Discharge Plan Discharge Clinical Impression: Depression Patient Disposition: Home, Self-Care Instructions: Depression (DC) Prescriptions: No Action spironolactone 25 mg tablet 25 mg PO BID hydroxyzine HCl 25 mg tablet 25 mg PO Q6H PRN (Reason: Anxiety) ibuprofen 600 mg tablet 600 mg PO TID lithium carbonate 300 mg capsule 300 mg PO BID Referrals: Physician,None [Primary Care Provider] - 2 days Interventions: [place]-Suicide Risk Severity Scale Last Done: 03/04/24 06:22 Print Language: Bengali
--- NOTE | 2024-03-04 07:44 | PC.NURSE ---
Assumed care of patient at 0645, patient appears to be in no apparent distress this am, gave urine sample, offers no complaints at this time. Continue plan of care for med clearance and CARE team moshe
[2024-03-04 07:59] VITALS: RESP 16
[2024-03-04 08:16] LABS: Appearance Urine Clear; Color Urine Yellow; Glucose Urine UA Negative (Negative); Leukocyte Esterase Urine Negative (Negative); Nitrite Urine Negative (Negative); PH 6.5 (5.0-9.0); Specific Gravity - Urine 1.015 (1.005-1.025); Urine Blood Negative (Negative); Urine Ketones Negative (Negative); Urine Protein Negative (Neg-Trace)
[2024-03-04 08:25] LABS: Amphetamine Screen Urine Not Detected (Not Detect); Barbiturates, Urine Not Detected (Not Detect); Benzodiazepines Screen Urine Not Detected (Not Detect); Buprenorphine Scr Not Detected (Not Detect); Cannabinoid Screen Urine Not Detected (Not Detect); Cocaine Screen Urine POSITIVE (Not Detect); Fentanyl, urine Not Detected (Not Detect); Methadone Screen, Urine Not Detected (Not Detect); Opiate Screen Urine Not Detected (Not Detect); Oxycodone Screen Urine Not Detected (Not Detect); Phencyclidine Screen Urine Not Detected (Not Detect)
--- NOTE | 2024-03-04 09:15 | MHC.CARE ---
Pt does not present as an imminent risk and does not meet IPLOC. Pt denies SI, HI, and A/V/H. Pt is requesting to D/C as she reportedly has a bed at the [facility] tomorrow. Provider in agreement.
[2024-03-04 09:25] VITALS: BP 127/89; PULSE 87; RESP 16; TEMP 37.2; O2SAT 99
== END 2024-03-04 09:32 | disposition home or self-care (01) ==
PROVIDERS: Emergency Provider Emergency Medicine
DX: F33.1 Major depressive disorder, recurrent, moderate (principal); R45.851 Suicidal ideations; F14.90 Cocaine use, unspecified, uncomplicated; Z51.81 Encounter for therapeutic drug level monitoring; Z79.899 Other long term (current) drug therapy
CPT/HCPCS: 36415; 80053; 80143; 80179; 80307; 81003; 85025; 99284; 99285

== ENCOUNTER 2024-06-25 00:59 | Emergency (ER) | payer MEDICAID, SELFPAY ==
[2024-06-25 01:04] VITALS: BP 119/60; PULSE 54; RESP 20; TEMP 36.1; O2SAT 99; BMI 23.7
--- NOTE | 2024-06-25 01:10 | MHC.EDTECH ---
labs done upon arrival in triage. pt unable to give urine sample at this time.
[2024-06-25 01:15] LABS: MANUAL DIFF FLAG NO
[2024-06-25 01:16] LABS: Basophils Absolute Auto 0.1 X10*3/uL (0.0-0.2); Basophils Percent Auto 0.6 % (0-2); Eosinophils Absolute Auto 0.1 X10*3/uL (0.0-0.4); Eosinophils Percent Auto 1.2 % (0-4); Hematocrit 39.9 % (37.0-47.0); Hemoglobin 14.2 g/dl (12.0-16.0); Imm Gran Abs Auto 0.02 X10*3/uL (0.00-0.03); Imm Gran Pct Auto 0.2 % (0.0-0.4); Lymphocytes Absolute Auto 2.9 X10*3/uL (1.2-4.9); Lymphocytes Percent Auto 26.6 % (20-40); Mean Corpuscular HGB Conc 35.6 g/dl (31.0-35.0); Mean Corpuscular Hemoglobin 31.1 pg (27.0-33.0); Mean Corpuscular Volume 87.3 fL (80.0-98.0); Mean Platelet Volume 10.1 fL (9.4-12.3); Monocytes Absolute Auto 0.8 X10*3/uL (0.1-1.2); Monocytes Percent Auto 7.1 % (2-11); Neutrophils Absolute Auto 6.9 x10*3/uL (2.0-8.3); Neutrophils Percent Auto 64.3 % (45-73); Platelet Count 240 X10*3/uL (160-400); Red Blood Count 4.57 X10*6/uL (4.20-5.50); Red Cell Distribution Width 12.2 % (11.0-16.0); White Blood Count 10.8 X10*3/uL (4.8-10.8)
--- NOTE | 2024-06-25 01:24 | ED.PSYCH ---
HPI - Psych General Chief Complaint: Psychiatric Symptoms Stated Complaint: SI with no plan Time Seen by Provider: 06/25/24 01:23 Source: patient Mode of arrival: ambulatory History of Present Illness ED Provider: HPI Narrative: Patient is transgender personality disorder bipolar disorder comes here for suicidal feeling wants to cut herself with a plan patient does not have any specific reason no significant stress patient has stopped taking hermedication for last 1 month Related Data Home Medications ?Medication ?Instructions ?Recorded ?Confirmed lithium carbonate 300 mg capsule 300 mg PO BID 09/07/23 11/12/23 hydroxyzine HCl 25 mg tablet 25 mg PO Q6H PRN Anxiety 03/04/24 03/04/24 ibuprofen 600 mg tablet 600 mg PO TID 03/04/24 03/04/24 spironolactone 25 mg tablet 25 mg PO BID 03/04/24 03/04/24 Allergies Allergy/AdvReac Type Severity Reaction Status Date / Time nicotine [From NICODERM CQ] Allergy Mild SHORTNESS Verified 06/25/24 01:05 OF BREATH ketchup [KETCHUP] Allergy Unknown RASH Verified 06/25/24 01:05 onion [ONION] Allergy Unknown RASH Verified 06/25/24 01:05 tomato [TOMATO] Allergy Unknown RASH Verified 06/25/24 01:05 Review of Systems Review of Systems: Yes all other systems are reviewed and are negative [facility] Past Medical History Medical History Transgender Personality disorder Bipolar 1 disorder Social History Social History Unable to assess alcohol history related to: Refusing to respond Alcohol intake: current Alcohol intake frequency: a few times a month Alcohol type: hard liquor Patient Tobacco Use Status: Never used Tobacco Substance Use Type: Crack/Cocaine and Marijuana Advance Directives: No Do you have a plan to hurt others: No Plan Physical Exam Vital Signs: Vital Signs: Last Vital Signs Temp 97.0 F 06/25/24 01:04 Pulse 54 06/25/24 01:04 Resp 20 06/25/24 01:04 BP 119/60 06/25/24 01:04 Pulse Ox 99 06/25/24 01:04 O2 Del Method Room Air 06/25/24 01:04 BMI result Body Mass Index 23.7 Appearance: Alert. Oriented X3. No acute distress. Eyes: PERRLA, No Nystagmus ENT: Pharynx normal. Oral Mucosa moist Neck: Normal inspection. Neck supple. CVS: Normal heart rate and rhythm. Pulses normal. Respiratory: No respiratory distress. Equal air entry bilateral, no wheezing/rales/rhonchi Abdomen: Soft and nontender. Bowel sounds are present, no mass palpable, no CVA tenderness Skin: Skin warm and dry. Normal skin color. Normal skin turgor. Extremities: No lower extremity edema. No calf tenderness psych; depressed and suicidal with plan to cut herslf Neuro: Oriented X 3. No motor deficit. No sensory deficit.No cerebellar signs , cranial nerves II-XII intact Medical Decision Making Medical Decision Making [facility] Narrative: Patient with depression bipolar disorder feels suicidal with a plan denies any known stress will consult care team for evaluation, patient is signed out Dr. Isaac pending labs and disposition Lab Data [facility] Lab Attestation statement: I reviewed the patient's lab results. 06/25/24 01:10 06/25/24 01:10 Labs: Lab Results 06/25/24 Range/Units 01:10 WBC 10.8 (4.8-10.8) X10*3/uL RBC 4.57 (4.20-5.50) X10*6/uL Hgb 14.2 (12.0-16.0) g/dl Hct 39.9 (37.0-47.0) % MCV 87.3 (80.0-98.0) fL MCH 31.1 (27.0-33.0) pg MCHC 35.6 H (31.0-35.0) g/dl RDW 12.2 (11.0-16.0) % Plt Count 240 (160-400) X10*3/uL MPV 10.1 (9.4-12.3) fL Immature Gran % (Auto) 0.2 (0.0-0.4) % Neut % (Auto) 64.3 (45-73) % Lymph % (Auto) 26.6 (20-40) % [place] % (Auto) 7.1 (2-11) % Eos % (Auto) 1.2 (0-4) % Baso % (Auto) 0.6 (0-2) % Lymph # (Auto) 2.9 (1.2-4.9) X10*3/uL [place] # (Auto) 0.8 (0.1-1.2) X10*3/uL Eos # (Auto) 0.1 (0.0-0.4) X10*3/uL Baso # (Auto) 0.1 (0.0-0.2) X10*3/uL Abs Immat Gran (auto) 0.02 (0.00-0.03) X10*3/uL Absolute Neuts (auto) 6.9 (2.0-8.3) x10*3/uL Absolute Nucleated RBC 0.000 (0.0-0.012) X10*3/uL Nucleated RBC % (auto) 0.0 (0.0-0.2) /100WBC Discharge Plan Discharge Clinical Impression: Depression, Suicidal ideation Patient Disposition: Still a Patient Prescriptions: No Action spironolactone 25 mg tablet 25 mg PO BID hydroxyzine HCl 25 mg tablet 25 mg PO Q6H PRN (Reason: Anxiety) ibuprofen 600 mg tablet 600 mg PO TID lithium carbonate 300 mg capsule 300 mg PO BID Print Language: Swedish
--- NOTE | 2024-06-25 01:28 | MHC.EDTECH ---
u/a pt changed over by security, belongings list made and belongings secured in 4 bags in [place] shelf 3
[2024-06-25 01:39] LABS: Alkaline Phosphatase 71 U/L (39-117)
[2024-06-25 01:52] LABS: Alanine Aminotransferase 18 U/L (0-31); Albumin Level 3.9 g/dL (3.5-5.0); Anion Gap 12 (12-20); Aspartate Amino Transferase 23 U/L (5-31); Blood Urea Nitrogen 16 mg/dL (9-16); Carbon Dioxide 25 mmol/L (22-29); Chloride 107 mmol/L (96-108); Creatinine Clr Calc Pharmacy 96.1; Estimated Glomerular Filt Rate > 60; Ethanol < 10 mg/dL; Glucose Random 104 mg/dL (60-115); Potassium 3.9 mmol/L (3.3-5.1); Sodium 140 mmol/L (135-145)
[2024-06-25 02:12] LABS: Amphetamine Screen Urine Not Detected (Not Detect); Barbiturates, Urine Not Detected (Not Detect); Benzodiazepines Screen Urine Not Detected (Not Detect); Buprenorphine Scr Not Detected (Not Detect); Cannabinoid Screen Urine Not Detected (Not Detect); Cocaine Screen Urine POSITIVE (Not Detect); Fentanyl, urine Not Detected (Not Detect); Methadone Screen, Urine Not Detected (Not Detect); Opiate Screen Urine Not Detected (Not Detect); Oxycodone Screen Urine Not Detected (Not Detect); Phencyclidine Screen Urine Not Detected (Not Detect)
[2024-06-25 02:32] LABS: Total Protein 6.7 g/dL (6.5-8.0)
--- NOTE | 2024-06-25 06:21 | PC.NURSE ---
pt has been calm and cooperative throughout the night, occasionally asking for food. sitter at bedside. no apparent distress noted
--- NOTE | 2024-06-25 06:35 | MHC.EDTECH ---
u/a patient changed over and belongings secured in [place] shelf 3. 4 bags
[2024-06-25 07:01] VITALS: BP 113/65; PULSE 59; RESP 16; TEMP 36.2; O2SAT 97
[2024-06-25 11:03] VITALS: BP 113/65; PULSE 59; RESP 16; TEMP 36.2; O2SAT 97
== END 2024-06-25 11:03 | disposition home or self-care (01) ==
PROVIDERS: Emergency Provider Internal Medicine
DX: F31.9 Bipolar disorder, unspecified (principal); R45.851 Suicidal ideations; F64.0 Transsexualism; F60.9 Personality disorder, unspecified; Z91.148 Patient's other noncompliance with medication regimen for other reason
CPT/HCPCS: 36415; 80053; 80307; 85025; 99284; 99285; S9485

== ENCOUNTER 2024-06-26 23:23 | Emergency (ER) | payer MEDICAID, SELFPAY ==
[2024-06-26 23:28] VITALS: BP 119/65; PULSE 61; RESP 18; TEMP 36.8; O2SAT 100; BMI 25.1
[2024-06-26 23:45] LABS: MANUAL DIFF FLAG NO
[2024-06-26 23:47] LABS: Basophils Absolute Auto 0.1 X10*3/uL (0.0-0.2); Basophils Percent Auto 1.1 % (0-2); Eosinophils Absolute Auto 0.3 X10*3/uL (0.0-0.4); Eosinophils Percent Auto 2.5 % (0-4); Hematocrit 40.1 % (37.0-47.0); Hemoglobin 14.4 g/dl (12.0-16.0); Imm Gran Abs Auto 0.02 X10*3/uL (0.00-0.03); Imm Gran Pct Auto 0.2 % (0.0-0.4); Lymphocytes Absolute Auto 2.9 X10*3/uL (1.2-4.9); Lymphocytes Percent Auto 28.6 % (20-40); Mean Corpuscular HGB Conc 35.9 g/dl (31.0-35.0); Mean Corpuscular Hemoglobin 31.3 pg (27.0-33.0); Mean Corpuscular Volume 87.2 fL (80.0-98.0); Mean Platelet Volume 10.1 fL (9.4-12.3); Monocytes Percent Auto 9.2 % (2-11); Neutrophils Percent Auto 58.4 % (45-73); Platelet Count 249 X10*3/uL (160-400); Red Cell Distribution Width 12.1 % (11.0-16.0); White Blood Count 10.3 X10*3/uL (4.8-10.8)
[2024-06-26 23:48] LABS: Appearance Urine Clear; Color Urine Yellow; Glucose Urine UA Negative (Negative); Leukocyte Esterase Urine Negative (Negative); Nitrite Urine Negative (Negative); PH 5.5 (5.0-9.0); Urine Blood Negative (Negative); Urine Ketones Negative (Negative); Urine Protein Negative (Neg-Trace)
[2024-06-26 23:50] LABS: Bacteria Urine None Seen (None Seen); Hyaline Casts Urine 0-2 /LPF (0-2); RBC Urine 0-2 /HPF (0-2); Squamous Epithelial Cell Urine 0-2 /HPF (0-2); WBC Urine 0-5 /HPF (0-5)
[2024-06-26 23:59] LABS: Amphetamine Screen Urine Not Detected (Not Detect); Barbiturates, Urine Not Detected (Not Detect); Benzodiazepines Screen Urine Not Detected (Not Detect); Buprenorphine Scr Not Detected (Not Detect); Cannabinoid Screen Urine Not Detected (Not Detect); Cocaine Screen Urine POSITIVE (Not Detect); Fentanyl, urine Not Detected (Not Detect); Methadone Screen, Urine Not Detected (Not Detect); Opiate Screen Urine Not Detected (Not Detect); Oxycodone Screen Urine Not Detected (Not Detect); Phencyclidine Screen Urine Not Detected (Not Detect)
[2024-06-27 00:02] LABS: Acetaminophen LAB < 3 mcg/mL (<30); Alanine Aminotransferase 21 U/L (0-31); Albumin Level 4.1 g/dL (3.5-5.0); Alkaline Phosphatase 84 U/L (39-117); Anion Gap 10 (12-20); Aspartate Amino Transferase 31 U/L (5-31); Blood Urea Nitrogen 25 mg/dL (9-16); Calcium 8.9 mg/dL (8.4-10.2); Carbon Dioxide 27 mmol/L (22-29); Chloride 106 mmol/L (96-108); Creatinine Clr Calc Pharmacy 93.8; Estimated Glomerular Filt Rate > 60; Ethanol < 10 mg/dL; Glucose Random 98 mg/dL (60-115); Potassium 3.4 mmol/L (3.3-5.1); Salicylate < 5.0 mg/dL (15-30); Sodium 140 mmol/L (135-145); Total Protein 6.8 g/dL (6.5-8.0)
--- NOTE | 2024-06-27 02:33 | ED.PSYCH ---
HPI - Psych General Chief Complaint: Psychiatric Symptoms Stated Complaint: SI Time Seen by Provider: 06/27/24 01:19 Source: patient Mode of arrival: ambulatory Limitations: no limitations History of Present Illness ED Provider: Dr. Machelle [place] HPI Narrative: Patient comes to the emergency room complaining of suicidal ideation. No plan. Patient denies homicidal ideation. Patient states that she is compliant with her medications that takes for bipolar disorder. Related Data Home Medications ?Medication ?Instructions ?Recorded ?Confirmed lithium carbonate 300 mg capsule 300 mg PO BID 09/07/23 11/12/23 hydroxyzine HCl 25 mg tablet 25 mg PO Q6H PRN Anxiety 03/04/24 03/04/24 ibuprofen 600 mg tablet 600 mg PO TID 03/04/24 03/04/24 spironolactone 25 mg tablet 25 mg PO BID 03/04/24 03/04/24 Allergies Allergy/AdvReac Type Severity Reaction Status Date / Time nicotine [From NICODERM CQ] Allergy Mild SHORTNESS Verified 06/26/24 23:29 OF BREATH ketchup [KETCHUP] Allergy Unknown RASH Verified 06/26/24 23:29 onion [ONION] Allergy Unknown RASH Verified 06/26/24 23:29 tomato [TOMATO] Allergy Unknown RASH Verified 06/26/24 23:29 Review of Systems Review of Systems: Constitutional : No Weight loss, No Fever, No Chills, No Night Sweats, No Fatigue, No Malaise ENT/Mouth : No Hearing loss, No Ear Pain, No Nasal Congestion, No Sinus Pain, No Hoarseness, No sore throat, No Rhinorrhea, No Swallowing Difficulty Eyes: No Eye Pain, No Swelling, No Redness, No Foreign Body, No Discharge, No Vision Changes Cardiovascular : No Chest Pain, No SOB, No Dyspnea on Exertion, No Orthopnea, No Edema, No Palpitations Respiratory : No Cough, No Sputum, No Wheezing, No Smoke Exposure, No Dyspnea Gastrointestinal : No Nausea, No Vomiting, No Diarrhea, No Constipation, No abdominal Pain, No Hematochezia, No Melena Genitourinary : no irregular bleeding, No Dysuria, No Urinary Frequency, No Hematuria, No Urinary Incontinence, No Urgency, No Flank Pain, No Urinary Flow Changes, No Hesitancy Musculoskeletal : No joint pain, No Myalgias, No Joint Swelling Skin : No Skin Lesions, No rash Neuro : No Weakness, No Numbness, No Paresthesias, No Loss of Consciousness, No Dizziness, No Headache Psych : No Anxiety/Panic, complaining of suicidal ideation with no plan, No Social Issues, Heme/Lymph: No Bruising, No Bleeding,No Lymphadenopathy Endocrine : No Polyuria, No Polydipsia, No Temperature Intolerance [facility] Past Medical History Medical History Transgender Personality disorder Bipolar 1 disorder Social History Social History Unable to assess alcohol history related to: Refusing to respond Alcohol intake: current Alcohol intake frequency: a few times a month Alcohol type: hard liquor Patient Tobacco Use Status: Never used Tobacco Substance Use Type: Crack/Cocaine and Marijuana Advance Directives: No Advance Directives Information Provided: Yes Physical Exam Vital Signs: Vital Signs: Last Vital Signs Temp 98.2 F 06/26/24 23:28 Pulse 61 06/26/24 23:28 Resp 18 06/26/24 23:28 BP 119/65 06/26/24 23:28 Pulse Ox 100 06/26/24 23:28 O2 Del Method Room Air 06/26/24 23:28 BMI result Body Mass Index 25.1 Const: Other: Appearance: Alert. Oriented X3. No acute distress. Disheveled Eyes: Pupils equal, round and reactive to light. ENT: Pharynx normal. Neck: Normal inspection. Neck supple. No lymph nodes noted. No crepitus CVS: Normal heart rate and rhythm. Pulses normal. Normal S1 and S2 Respiratory: No respiratory distress. Breath sounds normal. No Wheezing. No rales Abdomen: Soft and nontender. No rigidity. No distention. Skin: Skin warm and dry. Normal skin color. Normal skin turgor. Extremities: No lower extremity edema. No Lacerations. No Rash Neuro: Oriented X 3. No motor deficit. No sensory deficit. Moving all extremities. No slurred speech. CN 2 through 12 grossly intact Psych: calm, cooperative, normal affect Medical Decision Making Medical Decision Making MDM Narrative: My interpretation of labs: No significant abnormality in patient's hematology and chemistry, urinalysis negative for UTI, U tox positive for cocaine Physician observation started at 02:35 Sign-out given to my colleague Dr. Hunt Differential Diagnosis Differential Diagnoses: The differential diagnosis associated with the presentation includes (Polysubstance abuse, alcohol abuse, malingering) Lab Data 06/26/24 23:37 06/26/24 23:37 Labs: Lab Results 06/26/24 Range/Units 23:37 WBC 10.3 (4.8-10.8) X10*3/uL RBC 4.60 (4.20-5.50) X10*6/uL Hgb 14.4 (12.0-16.0) g/dl Hct 40.1 (37.0-47.0) % MCV 87.2 (80.0-98.0) fL MCH 31.3 (27.0-33.0) pg MCHC 35.9 H (31.0-35.0) g/dl RDW 12.1 (11.0-16.0) % Plt Count 249 (160-400) X10*3/uL MPV 10.1 (9.4-12.3) fL Immature Gran % (Auto) 0.2 (0.0-0.4) % Neut % (Auto) 58.4 (45-73) % Lymph % (Auto) 28.6 (20-40) % [place] % (Auto) 9.2 (2-11) % Eos % (Auto) 2.5 (0-4) % Baso % (Auto) 1.1 (0-2) % Lymph # (Auto) 2.9 (1.2-4.9) X10*3/uL [place] # (Auto) 1.0 (0.1-1.2) X10*3/uL Eos # (Auto) 0.3 (0.0-0.4) X10*3/uL Baso # (Auto) 0.1 (0.0-0.2) X10*3/uL Abs Immat Gran (auto) 0.02 (0.00-0.03) X10*3/uL Absolute Neuts (auto) 6.0 (2.0-8.3) x10*3/uL Absolute Nucleated RBC 0.000 (0.0-0.012) X10*3/uL Nucleated RBC % (auto) 0.0 (0.0-0.2) /100WBC Sodium 140 (135-145) mmol/L Potassium 3.4 (3.3-5.1) mmol/L Chloride 106 (96-108) mmol/L Carbon Dioxide 27 (22-29) mmol/L Anion Gap 10 L (12-20) BUN 25 H (9-16) mg/dL Creatinine 0.82 (0.5-1.4) mg/dL Estim Creat Clear Calc 93.8 Estimated GFR > 60 Random Glucose 98 (60-115) mg/dL Calcium 8.9 (8.4-10.2) mg/dL Total Bilirubin 1.0 (0.0-1.0) mg/dL AST 31 (5-31) U/L ALT 21 (0-31) U/L Alkaline Phosphatase 84 (39-117) U/L Total Protein 6.8 (6.5-8.0) g/dL Albumin 4.1 (3.5-5.0) g/dL Urine Color Yellow Urine Appearance Clear Urine pH 5.5 (5.0-9.0) Ur Specific [place] 1.020 (1.005-1.025) Urine Protein Negative (Neg-Trace) mg/dL Urine Glucose (UA) Negative (Negative) mg/dL Urine Ketones Negative (Negative) mg/dL Urine Blood Negative (Negative) Urine Nitrite Negative (Negative) Ur Leukocyte Esterase Negative (Negative) Urine RBC 0-2 (0-2) /HPF Urine WBC 0-5 (0-5) /HPF Ur Squamous Epith Cells 0-2 (0-2) /HPF Urine Bacteria None Seen (None Seen) Hyaline Casts 0-2 (0-2) /LPF Salicylates < 5.0 L (15-30) mg/dL Urine Opiates Screen Not Detected (Not Detect) Ur Buprenorphine Scrn Not Detected (Not Detect) ng/mL Ur Oxycodone Screen Not Detected (Not Detect) ng/mL Urine Methadone Screen Not Detected (Not Detect) ng/mL Urine Fentanyl Screen Not Detected (Not Detect) Acetaminophen < 3 (<30) mcg/mL Ur Barbiturates Screen Not Detected (Not Detect) Ur Phencyclidine Scrn Not Detected (Not Detect) Ur Amphetamines Screen Not Detected (Not Detect) U Benzodiazepines Scrn Not Detected (Not Detect) Urine Cocaine Screen POSITIVE H (Not Detect) U Marijuana (THC) Screen Not Detected (Not Detect) Ethyl Alcohol < 10 mg/dL Discharge Plan Discharge Clinical Impression: Bipolar 1 disorder, Suicidal ideation Patient Disposition: Still a Patient Prescriptions: No Action spironolactone 25 mg tablet 25 mg PO BID hydroxyzine HCl 25 mg tablet 25 mg PO Q6H PRN (Reason: Anxiety) ibuprofen 600 mg tablet 600 mg PO TID lithium carbonate 300 mg capsule 300 mg PO BID Interventions: [place]-Suicide Risk Severity Scale Last Done: 06/26/24 23:58 Print Language: Romansh
--- NOTE | 2024-06-27 07:26 | PC.NURSE ---
ASSUMED CARE OF THIS PT, SLEEPING IN NAD AT THIS TIME, RESP EVEN, NONLABOURED.
[2024-06-27 11:24] VITALS: BP 115/59; PULSE 57; RESP 16; TEMP 36.9; O2SAT 98
== END 2024-06-27 11:26 | disposition home or self-care (01) ==
PROVIDERS: Emergency Provider Emergency Medicine
DX: F31.9 Bipolar disorder, unspecified (principal); R45.851 Suicidal ideations; F64.0 Transsexualism; F60.9 Personality disorder, unspecified; Z79.899 Other long term (current) drug therapy
CPT/HCPCS: 36415; 80053; 80143; 80179; 80307; 81001; 85025; 99284; S9485

== ENCOUNTER 2024-06-30 00:14 | Emergency (ER) | payer MEDICAID, SELFPAY ==
--- NOTE | 2024-06-30 | ECG_ITS ---
Test Reason : check qtc Blood Pressure : */* mmHG Vent. Rate : 53 BPM Atrial Rate : 53 BPM P-R Int : 168 ms QRS Dur : 100 ms QT Int : 464 ms P-R-T Axes : 81 60 50 degrees QTcB Int : 435 ms Sinus bradycardia Minimal voltage criteria for LVH, may be normal variant ( Kavin product ) Borderline ECG When compared with ECG of 31-Jan-2021 11:30, No significant change was found Referred By: Vani Dykes Electronically Signed By: GRAHAM CARDOZO
[2024-06-30 00:19] VITALS: BP 108/53; PULSE 57; RESP 18; TEMP 36.6; O2SAT 97; BMI 23.7
[2024-06-30 00:37] VITALS: BP 125/68; PULSE 58; RESP 16; TEMP 36.6; O2SAT 100
[2024-06-30 01:00] LABS: Hematocrit 39.3 % (37.0-47.0); Hemoglobin 14.2 g/dl (12.0-16.0); Mean Corpuscular HGB Conc 36.1 g/dl (31.0-35.0); Mean Corpuscular Hemoglobin 31.4 pg (27.0-33.0); Mean Corpuscular Volume 86.9 fL (80.0-98.0); Mean Platelet Volume 10.2 fL (9.4-12.3); Platelet Count 249 X10*3/uL (160-400); Red Blood Count 4.52 X10*6/uL (4.20-5.50); Red Cell Distribution Width 12.2 % (11.0-16.0)
[2024-06-30 01:01] LABS: Appearance Urine Clear; Color Urine Yellow; Glucose Urine UA Negative (Negative); Leukocyte Esterase Urine Negative (Negative); Nitrite Urine Negative (Negative); Specific Gravity - Urine 1.015 (1.005-1.025); Urine Blood Negative (Negative); Urine Ketones Negative (Negative); Urine Protein Negative (Neg-Trace)
[2024-06-30 01:16] LABS: Amphetamine Screen Urine Not Detected (Not Detect); Barbiturates, Urine Not Detected (Not Detect); Benzodiazepines Screen Urine Not Detected (Not Detect); Buprenorphine Scr Not Detected (Not Detect); Cannabinoid Screen Urine Not Detected (Not Detect); Cocaine Screen Urine POSITIVE (Not Detect); Fentanyl, urine Not Detected (Not Detect); Methadone Screen, Urine Not Detected (Not Detect); Opiate Screen Urine Not Detected (Not Detect); Oxycodone Screen Urine Not Detected (Not Detect); Phencyclidine Screen Urine Not Detected (Not Detect)
[2024-06-30 01:26] LABS: Alanine Aminotransferase 24 U/L (0-31); Anion Gap 12 (12-20); Aspartate Amino Transferase 38 U/L (5-31); Blood Urea Nitrogen 14 mg/dL (9-16); Calcium 8.9 mg/dL (8.4-10.2); Carbon Dioxide 23 mmol/L (22-29); Chloride 109 mmol/L (96-108); Creatinine Clr Calc Pharmacy 106.8; Estimated Glomerular Filt Rate > 60; Ethanol < 10 mg/dL; Glucose Random 96 mg/dL (60-115); Potassium 3.5 mmol/L (3.3-5.1); Sodium 140 mmol/L (135-145); Total Protein 6.6 g/dL (6.5-8.0)
[2024-06-30 01:50] LABS: Lithium < 0.10 mmol/L (0.60-1.20)
[2024-06-30 02:00] LABS: Alkaline Phosphatase 75 U/L (39-117)
--- NOTE | 2024-06-30 02:34 | ED_ITS ---
HPI - General Adult General Chief complaint: Psychiatric Symptoms Stated complaint: SI Time Seen by Provider: 06/30/24 02:15 Source: patient Limitations: no limitations History of Present Illness ED Provider: Vani Dykes PA-C HPI narrative: 49-year-old transgender male to female patient with a history of personality disorder , bipolar disorder presenting with SI. Patient states she has a plan to ?cut her wrists?. Patient states she has not been taking her medications as directed. She admits to cocaine and alcohol use. Denies HI. Patient also complains of left upper tooth pain of unclear duration. Related Data Home Medications ?Medication ?Instructions ?Recorded ?Confirmed ibuprofen 600 mg tablet 600 mg PO TID 03/04/24 06/30/24 spironolactone 25 mg tablet 25 mg PO BID 03/04/24 06/30/24 Allergies Allergy/AdvReac Type Severity Reaction Status Date / Time nicotine [From NICODERM CQ] Allergy Mild SHORTNESS Verified 06/30/24 00:19 OF BREATH ketchup [KETCHUP] Allergy Unknown RASH Verified 06/30/24 00:19 onion [ONION] Allergy Unknown RASH Verified 06/30/24 00:19 tomato [TOMATO] Allergy Unknown RASH Verified 06/30/24 00:19 Review of Systems 2 Review of Systems: Yes all other systems are reviewed and are negative Constitutional: Constitutional: Denies fatigue and Denies fever(s) ENT: Reports dental pain Cardiovascular: Cardiovascular: Denies chest pain and Denies dyspnea Respiratory: Respiratory: Denies dyspnea Gastrointestinal: Gastrointestinal: Denies abdominal pain Endocrine: Endocrine: Denies fatigue PMFSH Past Medical History Attestation statement: The following information was validated with the patient. Medical History Transgender Personality disorder Bipolar 1 disorder Social History Social History Unable to assess alcohol history related to: Refusing to respond Alcohol intake: current Alcohol intake frequency: a few times a month Alcohol type: hard liquor Patient Tobacco Use Status: Never used Tobacco Substance Use Type: Crack/Cocaine and Marijuana Advance Directives: No Advance Directives Information Provided: Yes Do you have a plan to hurt others: No Plan Physical Exam ED Vital Signs: Vital Signs - 24 hr 06/30/24 00:19 06/30/24 00:37 Temperature 97.8 F 97.8 F Pulse Rate 57 58 Respiratory Rate 18 16 Blood Pressure 108/53 L 125/68 Pulse Oximetry 97 100 Oxygen Delivery Method Room Air Room Air BMI result Body Mass Index 23.7 Const Other: Sleeping, easily woken with verbal stimuli Orientation/consciousness: patient oriented x3 HENMT Other: Overall poor dentition, many of the teeth are cracked with dental caries, plaque buildup. Subtle erythema of the gingiva that has generalized, no purulence noted from any of the teeth Resp Effort & Inspection: normal respiratory effort Cardio Other: Normal peripheral perfusion Skin Other: Warm dry no rash Neuro General: patient oriented x3, gait normal, no focal motor deficits and CN's II- XI intact bilaterally Psych Other: Cooperative Course Course Course Narrative: 06/30/24 7am observation continued, VS stable, no acute events overnight, CARE team eval pending FRANK Medications Administered Discontinued Medications Generic Name Dose Route Start Last Admin Trade Name Freq PRN Reason Stop Dose Admin Penicillin V Potassium 500 mg 06/30/24 02:47 06/30/24 04:04 Penicillin V Potassium 250 Mg Tablet PO 06/30/24 02:48 500 mg ONCE ONE Administration Medical Decision Making Medical Decision Making [facility] Narrative: 49-year-old transgender female with a history of personality, disorder bipolar disorder presenting with SI. Patient states she has a plan to ?cut her wrists?. Patient states she has not been taking her medications as directed. She admits to cocaine and alcohol use. Denies HI. Patient also complains of left upper tooth pain of unclear duration. Problem: Psychiatric illness, substance abuse , alcohol abuse History: Per patient I have considered the following differential diagnoses: SI, HI, decompensated psychiatric illness, drug/alcohol intoxication Plan: We will be obtaining screening labs including serum ethanol and U tox, the patient will be referred to the care team. To note the patient was just seen here 2 days ago and was released. As far as her dental pain is concerned, she has overall poor dentition, any of the teeth could be potentially infected. We will start on penicillin. We will place a CIWA scale to begin monitoring for potential alcohol withdrawal, no sxs present at this time. I have independently reviewed the following tests: Labs: No leukocytosis, not anemic, no electrolyte abnormality, U tox positive for cocaine, alcohol negative Lab Data 06/30/24 00:48 06/30/24 00:48 Labs: Lab Results 06/30/24 Range/Units 00:48 WBC 11.0 H (4.8-10.8) X10*3/uL RBC 4.52 (4.20-5.50) X10*6/uL Hgb 14.2 (12.0-16.0) g/dl Hct 39.3 (37.0-47.0) % MCV 86.9 (80.0-98.0) fL MCH 31.4 (27.0-33.0) pg MCHC 36.1 H (31.0-35.0) g/dl RDW 12.2 (11.0-16.0) % Plt Count 249 (160-400) X10*3/uL MPV 10.2 (9.4-12.3) fL Absolute Nucleated RBC 0.000 (0.0-0.012) X10*3/uL Nucleated RBC % (auto) 0.0 (0.0-0.2) /100WBC Sodium 140 (135-145) mmol/L Potassium 3.5 (3.3-5.1) mmol/L Chloride 109 H (96-108) mmol/L Carbon Dioxide 23 (22-29) mmol/L Anion Gap 12 (12-20) BUN 14 (9-16) mg/dL Creatinine 0.72 (0.5-1.4) mg/dL Estim Creat Clear Calc 106.8 Estimated GFR > 60 Random Glucose 96 (60-115) mg/dL Calcium 8.9 (8.4-10.2) mg/dL Total Bilirubin 1.0 (0.0-1.0) mg/dL AST 38 H (5-31) U/L ALT 24 (0-31) U/L Alkaline Phosphatase 75 (39-117) U/L Total Protein 6.6 (6.5-8.0) g/dL Albumin 4.0 (3.5-5.0) g/dL Urine Color Yellow Urine Appearance Clear Urine pH 6.0 (5.0-9.0) Ur Specific [place] 1.015 (1.005-1.025) Urine Protein Negative (Neg-Trace) mg/dL Urine Glucose (UA) Negative (Negative) mg/dL Urine Ketones Negative (Negative) mg/dL Urine Blood Negative (Negative) Urine Nitrite Negative (Negative) Ur Leukocyte Esterase Negative (Negative) Urine Opiates Screen Not Detected (Not Detect) Ur Buprenorphine Scrn Not Detected (Not Detect) ng/mL Ur Oxycodone Screen Not Detected (Not Detect) ng/mL Urine Methadone Screen Not Detected (Not Detect) ng/mL Urine Fentanyl Screen Not Detected (Not Detect) Ur Barbiturates Screen Not Detected (Not Detect) Ur Phencyclidine Scrn Not Detected (Not Detect) Ur Amphetamines Screen Not Detected (Not Detect) U Benzodiazepines Scrn Not Detected (Not Detect) [place] < 0.10 L (0.60-1.20) mmol/L Urine Cocaine Screen POSITIVE H (Not Detect) U Marijuana (THC) Screen Not Detected (Not Detect) Ethyl Alcohol < 10 mg/dL Discharge Plan Discharge Clinical Impression: Suicidal ideation, Dental infection Patient Disposition: Still a Patient Prescriptions: No Action spironolactone 25 mg tablet 25 mg PO BID ibuprofen 600 mg tablet 600 mg PO TID Interventions: [place]-Suicide Risk Severity Scale Last Done: 06/30/24 00:34 Print Language: Slovak
[2024-06-30] MEDS: Penicillin V Potassium 250 MG TABLET 500 MG PO ×2 (04:04→08:02)
--- NOTE | 2024-06-30 06:42 | PC.NURSE ---
Patient slept through the night, no distress observed/reported, 15 minutes safety check, no behavior and safety concerns, care consult ordered/pending evaluation, will continue to monitor
[2024-06-30] MEDS: Ibuprofen 600 MG TABLET PO (08:03)
[2024-06-30] MEDS: Spironolactone 25 MG TABLET PO (08:03)
--- NOTE | 2024-06-30 09:11 | MHC.CARE ---
Pt meets the level of IPLOC. Section 12a in chart. Provider in agreement.
--- NOTE | 2024-06-30 10:05 | MHC.CARE ---
Pt was accepted to [facility] for today 06/30/24. The accepting provider is Dr. Wolff and the ETA is anytime after 4pm. No nurse to nurse is required by the accepting facility. The address is [address] [place] [address]. Pod RN and CARE team have been notified of placement.
[2024-06-30 11:26] VITALS: BP 95/61; PULSE 55; RESP 20; TEMP 37.7; O2SAT 98
[2024-06-30 16:12] VITALS: BP 101/74; PULSE 84; RESP 16; TEMP 36.7; O2SAT 97
== END 2024-06-30 16:32 ==
PROVIDERS: Emergency Provider Emergency Medicine Emergency Medical Services
DX: R45.851 Suicidal ideations (principal); F31.9 Bipolar disorder, unspecified; K04.7 Periapical abscess without sinus; R00.1 Bradycardia, unspecified; Z51.81 Encounter for therapeutic drug level monitoring; Z79.899 Other long term (current) drug therapy
CPT/HCPCS: 36415; 80053; 80178; 80307; 81003; 85027; 93005; 99285; S9485

== ENCOUNTER → 2024-06-30 10:14 | Outpatient (BNV) | payer MEDICAID, SELFPAY | PROVIDERS: Emergency Provider Emergency Medicine Emergency Medical Services; Visit Provider Internal Medicine | DX: R00.1 Bradycardia, unspecified (principal) | CPT/HCPCS: 93010 ==

== ENCOUNTER 2024-07-04 06:24 | Emergency (ER) | payer MEDICAID, SELFPAY ==
[2024-07-04 06:28] VITALS: BP 103/55; PULSE 46; RESP 16; TEMP 36.8; O2SAT 98; BMI 25.1
[2024-07-04 07:03] LABS: MANUAL DIFF FLAG NO
[2024-07-04 07:05] LABS: Basophils Absolute Auto 0.1 X10*3/uL (0.0-0.2); Basophils Percent Auto 0.8 % (0-2); Eosinophils Absolute Auto 0.5 X10*3/uL (0.0-0.4); Eosinophils Percent Auto 5.4 % (0-4); Hematocrit 43.5 % (37.0-47.0); Hemoglobin 14.6 g/dl (12.0-16.0); Imm Gran Abs Auto 0.04 X10*3/uL (0.00-0.03); Imm Gran Pct Auto 0.4 % (0.0-0.4); Lymphocytes Absolute Auto 3.4 X10*3/uL (1.2-4.9); Lymphocytes Percent Auto 36.7 % (20-40); Mean Corpuscular HGB Conc 33.6 g/dl (31.0-35.0); Mean Corpuscular Hemoglobin 30.3 pg (27.0-33.0); Mean Corpuscular Volume 90.2 fL (80.0-98.0); Mean Platelet Volume 9.9 fL (9.4-12.3); Monocytes Percent Auto 10.5 % (2-11); Neutrophils Absolute Auto 4.3 x10*3/uL (2.0-8.3); Neutrophils Percent Auto 46.2 % (45-73); Platelet Count 248 X10*3/uL (160-400); Red Blood Count 4.82 X10*6/uL (4.20-5.50); Red Cell Distribution Width 12.4 % (11.0-16.0); White Blood Count 9.2 X10*3/uL (4.8-10.8)
--- NOTE | 2024-07-04 07:13 | ED.GENADULT ---
HPI - General Adult General Chief complaint: Nausea/Vomiting/Diarrhea Stated complaint: vomiting Time Seen by Provider: 07/04/24 07:13 History of Present Illness ED Provider: Casa AMANDA narrative: The patient is a 49-year-old who comes to the emergency room complaining of dental pain as well as nausea and vomiting. The dental pain has been going on for some time. The nausea and vomiting started yesterday. The patient was seen here 4 days ago complaining of dental pain. At that time they were also complaining of depression with suicidal ideation. They were evaluated by the care team and were transferred to [facility] for psychiatric care. Apparently the patient was discharged yesterday. The patient is reluctant to talk about their psychiatric hospitalization and only wanted to talk about their current complaints of dental pain, nausea, and vomiting. The patient says that they have dental pain left upper molar and a right lower molar. No abdominal pain. No fever, sweats, chills. Related Data Home Medications ?Medication ?Instructions ?Recorded ?Confirmed ibuprofen 600 mg tablet 600 mg PO TID 03/04/24 06/30/24 spironolactone 25 mg tablet 25 mg PO BID 03/04/24 06/30/24 Previous Rx's ?Medication ?Instructions ?Recorded acetaminophen 500 mg capsule 1,000 mg (2 x 500 mg) PO Q8H PRN 07/04/24 fever or pain #14 caps amoxicillin 500 mg capsule 500 mg PO TID 7 days #21 caps 07/04/24 ibuprofen 400 mg tablet 400 mg PO Q6H PRN pain #14 tabs 07/04/24 ondansetron 4 mg disintegrating 4 mg PO Q6H PRN nausea and 07/04/24 tablet vomiting #10 tabs Allergies Allergy/AdvReac Type Severity Reaction Status Date / Time nicotine [From NICODERM CQ] Allergy Mild SHORTNESS Verified 07/04/24 06:30 OF BREATH ketchup [KETCHUP] Allergy Unknown RASH Verified 07/04/24 06:30 onion [ONION] Allergy Unknown RASH Verified 07/04/24 06:30 tomato [TOMATO] Allergy Unknown RASH Verified 07/04/24 06:30 PMF Past Medical History Medical History Transgender Personality disorder Bipolar 1 disorder Social History Social History Unable to assess alcohol history related to: Refusing to respond Alcohol intake: current Alcohol intake frequency: holidays/special occasions only Alcohol type: hard liquor Patient Tobacco Use Status: Never used Tobacco Substance Use Type: Crack/Cocaine Advance Directives: No Advance Directives Information Provided: No Do you have a plan to hurt others: No Plan Physical Exam ED Vital Signs: Vital Signs - 24 hr 07/04/24 06:28 07/04/24 07:45 Temperature 98.2 F 98.2 F Pulse Rate 46 L 46 L Respiratory Rate 16 16 Blood Pressure 103/55 L 103/55 L Pulse Oximetry 98 98 Oxygen Delivery Method Room Air Room Air BMI result Body Mass Index 25.1 Const Other: The patient is a 49-year-old who looks somewhat chronically ill but not obviously acutely ill. Orientation/consciousness: patient oriented x3 HENMT Other: Face is symmetrical. Mucous membranes are moist. The patient has diffuse dental decay and several missing teeth. The patient is tender at his left rear upper molar and his right rear lower molar. No soft tissue swelling. No airway involvement. No posterior pharyngeal swelling. No trismus. Eyes General: appearance normal, both eyes and all related structures Neck Neck: Yes normal visual inspection, Yes full ROM and Yes no lymphadenopathy Resp Effort & Inspection: normal respiratory effort Auscultation: clear to auscultation bilaterally Cardio Rate: regular rate Rhythm: regular rhythm Heart sounds: S1 normal heart sound present and S2 normal heart sound present GI Other: The abdomen was flat, soft, nontender. Skin Other: Skin was dry and unremarkable Neuro General: patient oriented x3, tone normal, moves all extremities, no focal motor deficits and CN's II-XI intact bilaterally Extrem Other: no peripheral edema Medications Administered Discontinued Medications Generic Name Dose Route Start Last Admin Trade Name Freq PRN Reason Stop Dose Admin Acetaminophen 975 mg 07/04/24 07:26 07/04/24 07:44 Acetaminophen 325 Mg Tablet PO 07/04/24 07:27 Not Given ONCE ONE Amoxicillin 500 mg 07/04/24 07:22 07/04/24 07:44 Amoxicillin 500 Mg Capsule PO 07/04/24 07:23 Not Given ONCE ONE Ibuprofen 400 mg 07/04/24 07:26 07/04/24 07:44 Ibuprofen 400 Mg Tablet PO 07/04/24 07:27 Not Given ONCE ONE Ondansetron HCl 4 mg 07/04/24 07:22 07/04/24 07:44 Ondansetron Odt 4 Mg Tab.Ana ISSA 07/04/24 07:23 Not Given ONCE ONE Medical Decision Making Medical Decision Making [facility] Narrative: the patient is a 49-year-old person who is a frequent user of the emergency room who presents with complaints of dental pain and a complaint of nausea and vomiting. The patient was discharged from a psychiatric hospital yesterday. The patient did not want about that at all. The patient says they took an Uber taxi here from [place] come to the emergency room. The patient does not appear obviously acutely ill. The patient is complaining of dental pain. No obvious signs of significant infection apparent. The patient was complaining of nausea and vomiting. The abdomen is flat, soft, and nontender. The patient does not look toxic in labs were done and these are unremarkable. The patient will be started on amoxicillin. Also I will prescribe ondansetron, ibuprofen, and acetaminophen. The patient does not have a PCP. The patient is advised to try to get a PCP had [facility] in [place]. The patient also says they do not have a dentist. The patient will be referred to the [facility] for dentistry. Lab Data 07/04/24 06:51 07/04/24 06:51 Labs: Lab Results 07/04/24 Range/Units 06:51 WBC 9.2 (4.8-10.8) X10*3/uL RBC 4.82 (4.20-5.50) X10*6/uL Hgb 14.6 (12.0-16.0) g/dl Hct 43.5 (37.0-47.0) % MCV 90.2 (80.0-98.0) fL MCH 30.3 (27.0-33.0) pg MCHC 33.6 (31.0-35.0) g/dl RDW 12.4 (11.0-16.0) % Plt Count 248 (160-400) X10*3/uL MPV 9.9 (9.4-12.3) fL Immature Gran % (Auto) 0.4 (0.0-0.4) % Neut % (Auto) 46.2 (45-73) % Lymph % (Auto) 36.7 (20-40) % [place] % (Auto) 10.5 (2-11) % Eos % (Auto) 5.4 H (0-4) % Baso % (Auto) 0.8 (0-2) % Lymph # (Auto) 3.4 (1.2-4.9) X10*3/uL [place] # (Auto) 1.0 (0.1-1.2) X10*3/uL Eos # (Auto) 0.5 H (0.0-0.4) X10*3/uL Baso # (Auto) 0.1 (0.0-0.2) X10*3/uL Abs Immat Gran (auto) 0.04 H (0.00-0.03) X10*3/uL Absolute Neuts (auto) 4.3 (2.0-8.3) x10*3/uL Absolute Nucleated RBC 0.000 (0.0-0.012) X10*3/uL Nucleated RBC % (auto) 0.0 (0.0-0.2) /100WBC Sodium 140 (135-145) mmol/L Potassium 3.7 (3.3-5.1) mmol/L Chloride 106 (96-108) mmol/L Carbon Dioxide 29 (22-29) mmol/L Anion Gap 9 L (12-20) BUN 21 H (9-16) mg/dL Creatinine 0.75 (0.5-1.4) mg/dL Estim Creat Clear Calc 102.5 Estimated GFR > 60 Random Glucose 76 (60-115) mg/dL Calcium 9.1 (8.4-10.2) mg/dL Total Bilirubin 1.0 (0.0-1.0) mg/dL AST 66 H (5-31) U/L ALT 37 H (0-31) U/L Alkaline Phosphatase 68 (39-117) U/L Total Protein 6.8 (6.5-8.0) g/dL Albumin 4.1 (3.5-5.0) g/dL Lipase 20 (8-78) U/L Influenza Type A (PCR) NEGATIVE (Negative) Influenza Type B (PCR) NEGATIVE (Negative) RSV RNA Qual (PCR) NEGATIVE (Negative) SARS-CoV-2 RNA (RT-PCR) NEGATIVE (Negative) Discharge Plan Discharge Clinical Impression: Pain, dental, Nausea and vomiting Patient Disposition: Home, Self-Care Additional Instructions: I have sent a prescription for an antibiotic to the [facility] pharmacy in [place]. This is For your dental issues. For nausea you may use the ondansetron prescribed. Please try to drink lot of fluids. Ibuprofen and acetaminophen as needed for pain. Please work on finding a dentist for more definitive care. The [facility] has a dental clinic dry believe might take your insurance. I would recommend contacting them for possible dental services. I would also recommend trying to get a primary care doctor for ongoing care. I would recommend trying the [facility] in [place]. Return to the emergency room if significantly worse. Prescriptions: New amoxicillin 500 mg capsule 500 mg PO TID 7 Days Qty: 21 0RF acetaminophen 500 mg capsule 1,000 mg PO Q8H PRN (Reason: fever or pain) Qty: 14 0RF ibuprofen 400 mg tablet 400 mg PO Q6H PRN (Reason: pain) Qty: 14 0RF ondansetron 4 mg tablet,disintegrating 4 mg PO Q6H PRN (Reason: nausea and vomiting) Qty: 10 0RF No Action spironolactone 25 mg tablet 25 mg PO BID ibuprofen 600 mg tablet 600 mg PO TID Referrals: [facility] [Provider Group] [facility] [Provider Group] Interventions: ED Discharge Assessment Last Done: 07/04/24 07:45 Discharge Date/Time: 07/04/24 07:45 Print Language: Georgian
[2024-07-04 07:23] LABS: Alanine Aminotransferase 37 U/L (0-31); Albumin Level 4.1 g/dL (3.5-5.0); Alkaline Phosphatase 68 U/L (39-117); Anion Gap 9 (12-20); Aspartate Amino Transferase 66 U/L (5-31); Blood Urea Nitrogen 21 mg/dL (9-16); Calcium 9.1 mg/dL (8.4-10.2); Carbon Dioxide 29 mmol/L (22-29); Chloride 106 mmol/L (96-108); Creatinine Clr Calc Pharmacy 102.5; Estimated Glomerular Filt Rate > 60; Glucose Random 76 mg/dL (60-115); Lipase 20 U/L (8-78); Potassium 3.7 mmol/L (3.3-5.1); Sodium 140 mmol/L (135-145); Total Protein 6.8 g/dL (6.5-8.0)
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
--- OUTSIDE RECORDS SUMMARY | 2024-07-04 07:33 | XMS_ITS | Clinical Summary ---
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 11:48 AM EDT No acute bony abnormality. -------- FINAL REPORT -------- Dictated By: oSnido Bullock Dictated Date: 06/20/2024 11:46 Assigned Physician: Sonido Bullock Reviewed and Electronically Signed By: Sonido Bullock Signed Date: 06/20/2024 11:48 Workstation ID: [id number] Transcribed By: Self Edit Transcribed Date: 06/20/2024 11:46 Narrative 06/20/2024 11:48 AM EDT Comparison: None. Observations: Right foot: No fracture or dislocation is identified. The soft tissues are unremarkable. Left foot: No fracture or dislocation is identified. The soft tissues are unremarkable. Procedure Note Sonido Bullock MD - 06/20/2024 Comparison: None. Observations: Right foot: No fracture or dislocation is identified. The soft tissues areunremarkable. Left foot: No fracture or dislocation is identified. The soft tissues areunremarkable. IMPRESSION: No acute bony abnormality. -------- FINAL REPORT -------- Dictated By: Sonido Bullock Dictated Date: 06/20/2024 11:46 Assigned Physician: Sonido Bullock Reviewed and Electronically Signed By: Sonido Bullock Signed Date: 06/20/2024 11:48 Workstation ID: [id number] Transcribed By: Self Edit Transcribed Date: 06/20/2024 11:46 Se ZIMMERMAN IMG XR PROCEDURES Final Result * CBC auto differential (06/20/2024 11:24 AM EDT) Only the most recent of5 resultswithin the time period is included. WBC 7.8 4.0 - 10.2 K/mcL LAB HEMETOLOGY METHOD 06/20/2024 11:31 AM EDT [facility] RBC 4.51 3.80 - 5.70 M/mcL LAB HEMETOLOGY METHOD 06/20/2024 11:31 AM EDT [facility] Hemoglobin 13.7 11.3 - 17.1 g/dL LAB HEMETOLOGY METHOD 06/20/2024 11:31 AM EDT [facility] Hematocrit 40.6 34.0 - 50.2 % LAB HEMETOLOGY METHOD 06/20/2024 11:31 AM EDT [facility] MCV 90.0 81.0 - 97.0 FL LAB HEMETOLOGY METHOD 06/20/2024 11:31 AM EDT [facility] MCH 30.4 25.3 - 36.6 pcg LAB HEMETOLOGY METHOD 06/20/2024 11:31 AM EDT [facility] MCHC 33.7 29.2 - 35.3 g/dL LAB HEMETOLOGY METHOD 06/20/2024 11:31 AM EDT [facility] RDW 12.1 11.0 - 14.5 % LAB HEMETOLOGY METHOD 06/20/2024 11:31 AM EDT [facility] RDW-SD 40.1 36.8 - 48.3 FL LAB HEMETOLOGY METHOD 06/20/2024 11:31 AM EDT [facility] Platelets 219 150 - 400 K/mcL [facility] MPV 10.4 8.9 - 13.3 FL LAB HEMETOLOGY METHOD 06/20/2024 11:31 AM EDT [facility] Neutrophils Relative 43.5 32.0 - 71.0 % LAB HEMETOLOGY METHOD 06/20/2024 11:31 AM EDT [facility] Immature Granulocytes Relative 0.3 0.0 - 1.0 % LAB [facility]OLOGY [facility]20[facility]24 [facility] Lymphocytes Relative 38.0 19.5 - 54.0 % LAB HEMETOLOGY METHOD 06/20/2024 11:31 AM EDT [facility] Monocytes Relative 12.0 4.0 - 14.0 % LAB HEMETOLOGY METHOD 06/20/2024 11:31 AM EDT [facility] Eosinophils Relative 5.0 0.0 - 7.0 % LAB HEMETOLOGY METHOD 06/20/2024 11:31 AM [facility] Basophils Relative 1.2 0.0 - 2.0 % LAB HEMETOLOGY METHOD 06/20/2024 11:31 AM EDT [facility] Preliminary Neutrophils Abs Automated Count 3.38 1.50 - 6.00 K/mcL LAB HEMETOLOGY METHOD 06/20/2024 11:31 AM EDT [facility] Neutrophils Absolute 3.38 1.50 - 6.00 K/mcL LAB HEMETOLOGY METHOD 06/20/2024 11:31 AM EDT [facility] Immature Granulocytes Absolute 0.02 0.00 - 0.10 K/mcL LAB HEMETOLOGY METHOD 06/20/2024 11:31 AM EDT [facility] Lymphocytes Absolute 2.95 1.10 - 4.00 K/mcL LAB HEMETOLOGY METHOD 06/20/2024 11:31 AM EDT [facility] Monocytes Absolute 0.93 0.20 - 1.00 K/mcL LAB HEMETOLOGY METHOD 06/20/2024 11:31 AM EDT [facility] Eosinophils Absolute 0.39 0.00 - 0.70 K/mcL LAB HEMETOLOGY METHOD 06/20/2024 11:31 AM EDT [facility] Basophils Absolute 0.09 0.00 - 0.20 K/mcL LAB HEMETOLOGY METHOD 06/20/2024 11:31 AM EDT [facility] NRBC 0.0 0.0 - 0.0 % LAB HEMETOLOGY METHOD 06/20/2024 11:31 AM EDT [facility] NRBC Absolute 0.00 0.00 - 0.00 K/mcL LAB HEMETOLOGY METHOD 06/20/2024 11:31 AM EDT [facility] Blood Venous blood specimen / Unknown Venipuncture / Unknown 06/20/2024 11:24 AM EDT 06/20/2024 11:27 AM EDT us Se ZIMMERMAN LAB BLOOD ORDERABLES Final Resul t [facility] [address] [place] [address] * Lipase (06/20/2024 11:24 AM EDT) Lipase 30 12 - 53 unit/L LAB CHEMISTRY METHOD 06/20/2024 12:12 PM EDT [facility] Blood Venous blood specimen / Unknown Venipuncture / Unknown 06/20/2024 11:24 AM EDT 06/20/2024 11:27 AM EDT us Se ZIMMERMAN LAB BLOOD ORDERABLES Final Resul t [facility] [address] [place] [address] * (ABNORMAL) Comprehensive metabolic panel (06/20/2024 11:24 AM EDT) Only the most recent of5 resultswithin the time period is included. Pathologist [facility] Sodium 143 136 - 145 mmol/L LAB CHEMISTRY METHOD 06/20/2024 12:12 PM EDT [facility] Potassium 4.0 3.5 - 5.1 mmol/L LAB CHEMISTRY METHOD 06/20/2024 12:12 PM EDT [facility] Chloride 109(H) 98 - 107 mmol/L LAB CHEMISTRY METHOD 06/20/2024 12:12 PM EDT [facility] CO2 28 20 - 31 mmol/L LAB CHEMISTRY METHOD 06/20/2024 12:12 PM EDT [facility] Anion Gap 6 3 - 11 LAB CHEMISTRY METHOD 06/20/2024 12:12 PM EDT [facility] Glucose 76 70 - 99 mg/dL LAB CHEMISTRY METHOD 06/20/2024 12:12 PM EDT [facility] BUN 27(H) 9 - 23 mg/dL LAB CHEMISTRY METHOD 06/20/2024 12:12 PM EDT [facility] Creatinine 0.65 0.55 - 1.18 mg/dL LAB CHEMISTRY METHOD 06/20/2024 12:12 PM EDT [facility] eGFR 116 >=60 mL/min/1. 73m2 LAB CHEMISTRY METHOD 06/20/2024 12:12 PM T [facility] Comment: For non-binary individuals or unknown sex, the equation for female sex is used to calculate the estimated glomerular filtration rate (eGFR). Calculation based on the??Chronic Kidney Disease Epidemiology Collaboration (CKD-EPI) equation refit??without adjustment for race. BUN/Creatinine Ratio 41.5(H) 12.0 - 20.0 LAB CHEMISTRY METHOD 06/20/2024 12:12 PM T [facility] Calcium 8.7 8.3 - 10.6 mg/dL LAB CHEMISTRY METHOD 06/20/2024 12:12 PM [facility] AST (SGOT) 15 13 - 40 unit/L LAB CHEMISTRY METHOD 06/20/2024 12:12 PM [facility] ALT (SGPT) 15 7 - 40 unit/L LAB CHEMISTRY METHOD 06/20/2024 12:12 PM T [facility] Alkaline Phosphatase 72 42 - 128 unit/L LAB CHEMISTRY METHOD 06/20/2024 12:12 PM [facility] Total Protein 5.8 5.7 - 8.2 g/dL LAB CHEMISTRY METHOD 06/20/2024 12:12 PM T [facility] Albumin 3.3(L) 3.4 - 5.0 g/dL LAB CHEMISTRY METHOD 06/20/2024 12:12 PM [facility] Total Bilirubin 0.8 0.3 - 1.2 mg/dL LAB CHEMISTRY METHOD 06/20/2024 12:12 PM [facility] Blood Venous blood specimen / Unknown Venipuncture / Unknown 06/20/2024 11:24 AM EDT 06/20/2024 11:27 AM EDT us Se ZIMMERMAN LAB BLOOD ORDERABLES Final Resul t [facility] [address] [place] [address] * [id number], Influenza A and B qualitative RT-PCR (06/18/2024 10:52 AM EDT) Pathologist [facility] SARS-COV-2 Screen Not Detected Not Detected METHOD CARMITA JOSE ANALYZER_R OCHE_MNI 06/18/2024 11:18 AM EDT [facility] Influenza A PCR Not Detected Not Detected METHOD CARMITA JOSE ANALYZER_R OCHE_MNI 06/18/2024 11:18 AM EDT [facility] Influenza B PCR Not Detected Not Detected METHOD CARMITA JOSE ANALYZER_R OCHE_MNI 06/18/2024 11:18 AM EDT [facility] Swab Both anterior nares / Unknown Non-blood Collection / Unknown 06/18/2024 10:52 AM EDT 06/18/2024 10:55 AM EDT us Leann Osei NP LAB MICROBIOLOGY - GENERAL ORDER KRISTINA Final Result Performing Organization Address City/[facility]/ZIP Co de Phone Number [facility][note 3][place] [address] * (ABNORMAL) Drug abuse screen, urine (06/18/2024 9:26 AM EDT) Only the most recent of9 resultswithin the time period is included. Amphetamine Screen, Ur Negative Negative <1000 ng/mL LAB CHEMISTRY METHOD 06/18/2024 9:49 AM EDT [facility] Barbiturate Screen, Ur Negative Negative <200 ng/mL LAB CHEMISTRY METHOD 06/18/2024 9:49 AM EDT [facility] Benzodiazepine Screen, Ur Negative Negative <200 ng/mL LAB CHEMISTRY METHOD 06/18/2024 9:49 AM EDT [facility] Opiate Screen, Ur Negative Negative <300 ng/mL LAB CHEMISTRY METHOD 06/18/2024 9:49 AM EDT [facility] Cocaine Screen, Ur Positive(A) Negative <300 ng/mL LAB CHEMISTRY METHOD 06/18/2024 9:49 AM EDT [facility] Comment:Unconfirmed for Posi tive results. Cannabinoid (THC) Screen, Ur Negative Negative <50 ng/mL LAB CHEMISTRY METHOD 06/18[facility]2024 9:[facility] P[facility] Scrn, Ur Negative Negative <25 ng/mL LAB CHEMISTRY METHOD 06/18/2024 9:[address] [facility] Urine Urine specimen obtained by clean catch procedure / Unknown Non-blood Collection / Unknown 06/18/2024 9:26 AM EDT 06/18/2024 9:30 AM EDT us Cristofer ZIMMERMAN LAB URINE ORDERABLES Final Result Performing Organization Address City/[facility]/ZIP Co de Phone Number [facility] [address] [place] [id number] * Ethanol (05/21/2024 12:57 PM EST) Only the most recent of5 resultswithin the time period is included. Ethanol Level <3 mg/dL LAB CHEMISTRY METHOD 05/21/2024 1:38 PM EST [facility] Blood Venous blood specimen / Unknown Venipuncture / Unknown 05/21/2024 12:57 PM EST 05/21/2024 1:02 PM EST us Ranulfo Sims III, MD LAB BLOOD ORDERABLES Final Re sult Performing Organization Address City/[facility]/ZIP Co de Phone Number [facility][note 3][address] [place] [address] * , urine (05/21/2024 7:37 AM EST) Preg Test, Ur Negative Negative 05/21/2024 9:44 AM EST [facility] Urine Urine specimen obtained by clean catch procedure / Unknown Non-blood Collection / Unknown 05/21/2024 7:37 AM EST 05/21/2024 7:53 AM EST [facility] URINE ORDERABLES Final Re sult [facility] [address] [place] [address] * Ethanol, urine (05/21/2024 7:37 AM EST) Pathologist [facility] Ethanol Screen, Ur Negative Negative <10 mg/dL LAB CHEMISTRY METHOD 05/21/2024 1:41 PM EST [facility] Urine Urine specimen obtained by clean catch procedure / Unknown Non-blood Collection / Unknown 05/21/2024 7:37 AM EST 05/21/2024 7:53 AM EST Narrative [facility] - 05/21/2024 1:41 PM EST This result is for medical treatment only. ??Analysis was performed as non-forensic testing by enzyme immunoassay. [facility] LAB URINE ORDERABLES Final Re sult [facility] [address] [place] [address] * (ABNORMAL) Urinalysis with reflex microscopic (05/17/2024 8:22 AM EST) Color, Urine Yellow Colorless, Yellow, Straw LAB URINALYSIS - AUTOMATED METHOD 05/17/2024 8:45 AM EST [facility] Clarity, Urine Hazy(A) Clear LAB URINALYSIS - AUTOMATED METHOD 05/17/2024 8:45 AM [facility] Specific [place] Urine 1.028 1.005 - 1.030 LAB URINALYSIS - AUTOMATED METHOD 05/17/2024 8:45 AM [facility] pH, Urine 5.0 5.0 - 7.0 pH LAB URINALYSIS - AUTOMATED METHOD 05/17/2024 8:45 AM [facility] Leukocytes, Urine Negative Negative, Trace WBCs/mcL LAB URINALYSIS - AUTOMATED METHOD 05/17/2024 8:45 AM [facility] Nitrite, Urine Negative Negative LAB URINALYSIS - AUTOMATED METHOD 05/17/2024 8:45 AM [facility] Protein, Urine Negative Negative mg/dL LAB URINALYSIS - AUTOMATED METHOD 05/17/2024 8:45 AM [facility] Glucose, Urine Negative Negative mg/dL LAB URINALYSIS - AUTOMATED METHOD 05/17/2024 8:45 AM [facility] Ketones, Urine Negative Negative mg/dL LAB URINALYSIS - AUTOMATED METHOD 05/17/2024 8:45 AM [facility] Urobilinogen, Urine Negative 0 - 2 mg/dL LAB URINALYSIS - AUTOMATED METHOD 05/17/2024 8:45 AM [facility] Bilirubin, Urine Negative Negative mg/dL LAB URINALYSIS - AUTOMATED METHOD 05/17/2024 8:45 AM [facility] Blood, Urine Negative Negative mg/dL LAB URINALYSIS - AUTOMATED METHOD 05/17/2024 8:45 AM [facility] Urine Urine specimen obtained by clean catch procedure / Unknown Non-blood Collection / Unknown 05/17/2024 8:22 AM EST 05/17/2024 8:31 AM EST us Francisco Javier Pandya DO LAB URINE ORDERABLES Final R esult [facility] [address] [place] [address] * Yanez urine culture tube (05/17/2024 8:22 AM EST) Only the most recent of6 resultswithin the time period is included. Extra Tube Hold for add-ons. 05/17/2024 10:01 AM EST [facility] Comment:Auto resulted. Urine Urine specimen obtained by clean catch procedure / Unknown Non-blood Collection / Unknown 05/17/2024 8:22 AM EST 05/17/2024 8:31 AM EST [facility] URINE ORDERABLES Final R esult [facility] [address] [place] [address] * (ABNORMAL) Acetaminophen level (05/17/2024 8:21 AM EST) Only the most recent of3 resultswithin the time period is included. Acetaminophen Level <2.0(L) 10.0 - 30.0 mcg/mL LAB CHEMISTRY METHOD 05/17/2024 9:26 AM EST [facility] Blood Venous blood specimen / Unknown Venipuncture / Unknown 05/17/2024 8:21 AM EST 05/17/2024 8:31 AM EST [facility] Mumtaz DO LAB BLOOD ORDERABLES Final R esult [facility] [address] [place] [address] * Salicylate level (05/17/2024 8:21 AM EST) Only the most recent of2 resultswithin the time period is included. Salicylate Level <3.0 2.8 - 20.0 mg/dL LAB CHEMISTRY METHOD 05/17/2024 9:26 AM EST [facility] Blood Venous blood specimen / Unknown Venipuncture / Unknown 05/17/2024 8:21 AM EST 05/17/2024 8:31 AM EST us Vadimreal [place] LAB BLOOD ORDERABLES Final R esult Performing Organization Address City/[facility]/ZIP Co de Phone Number [facility] [address] [place] [address] * Belk top urine tube (05/09/2024 1:07 AM EST) Only the most recent of3 resultswithin the time period is included. Pathologist [facility] Extra Tube Hold for add-ons. 05/09/2024 3:05 AM [facility] Comment:Auto resulted. Urine Urine specimen obtained by clean catch procedure / Unknown 05/09/2024 1:07 AM EST 05/09/2024 1:07 AM EST us Mesha Alberto PA LAB URINE ORDERABLES Final Res ult Performing Organization Address City/[facility]/ZIP Co de Phone Number [facility] [address] [place] [address] * Urinalysis with reflex microscopic and culture (05/08/2024 10:41 AM EST) Only the most recent of2 resultswithin the time period is included. Color, Urine Yellow Colorless, Yellow, Straw LAB URINALYSIS - AUTOMATED METHOD 05/08/2024 11:22 AM EST [facility] Clarity, Urine Clear Clear LAB URINALYSIS - AUTOMATED METHOD 05/08/2024 11:22 AM [facility] Specific [place] Urine 1.014 1.005 - 1.030 LAB URINALYSIS - AUTOMATED METHOD 05/08/2024 11:22 AM EST [facility] pH, Urine 6.0 5.0 - 7.0 pH LAB URINALYSIS - AUTOMATED METHOD 05/08/2024 11:22 AM [facility] Leukocytes, Urine Negative Negative, Trace WBCs/mcL LAB URINALYSIS - AUTOMATED METHOD 05/08/2024 11:22 AM [facility] Nitrite, Urine Negative Negative LAB URINALYSIS - AUTOMATED METHOD 05/08/2024 11:22 AM [facility] Protein, Urine Negative Negative mg/dL LAB URINALYSIS - AUTOMATED METHOD 05/08/2024 11:22 AM [facility] Glucose, Urine Negative Negative mg/dL LAB URINALYSIS - AUTOMATED METHOD 05/08/2024 11:22 AM [facility] Ketones, Urine Negative Negative mg/dL LAB URINALYSIS - AUTOMATED METHOD 05/08/2024 11:22 AM [facility] Urobilinogen, Urine Negative 0 - 2 mg/dL LAB URINALYSIS - AUTOMATED METHOD 05/08/2024 11:22 AM [facility] Bilirubin, Urine Negative Negative mg/dL LAB URINALYSIS - AUTOMATED METHOD 05/08/2024 11:22 AM [facility] Blood, Urine Negative Negative mg/dL LAB URINALYSIS - AUTOMATED METHOD 05/08/2024 11:22 AM [facility] Urine Urine specimen obtained by clean catch procedure / Unknown Non-blood Collection / Unknown 05/08/2024 10:41 AM EST 05/08/2024 10:50 AM EST us Vishal ZIMMERMAN LAB URINE ORDERABLES Final R esult [facility] [address] [place] [address] * Yellow urine no additive (05/08/2024 10:41 AM EST) Only the most recent of2 resultswithin the time period is included. Extra Tube Hold for add-ons. 05/08/2024 12:02 PM EST [facility] Comment:Auto resulted. Urine Urine specimen obtained by clean catch procedure / Unknown Non-blood Collection / Unknown 05/08/2024 10:41 AM EST 05/08/2024 10:50 AM EST us Vishal ZIMMERMAN LAB URINE ORDERABLES Final R esult [facility] [address] [place] [address] * XR Foot 3+ Views Right (05/03/2024 5:49 AM EST) Anatomical Region Laterality Modality Lower Extremities, Foot Right Radiogra phic Imaging 05/03/2024 6:00 AM EST Impressions 05/03/2024 6:02 AM EST No acute bony abnormality. -------- FINAL REPORT -------- Dictated By: Porfirio Kitchen Dictated Date: 05/03/2024 06:00 Assigned Physician: Porfirio Kitchen Reviewed and Electronically Signed By: Porfirio Kitchen Signed Date: 05/03/2024 06:02 Workstation ID: [id number] Transcribed By: Self Edit Transcribed Date: 05/03/2024 06:00 Narrative 05/03/2024 6:02 AM EST COMPARISON: ??Bilateral feet radiographs dated 01/13/2023. TECHNIQUE: Right foot radiography. ?? FINDINGS: No acute fracture or malalignment. ??The joint spaces are preserved. ??Small plantar calcaneal enthesophyte. ??No radiopaque foreign body. Procedure Note Porfirio Kitchen MD - 05/03/2024 COMPARISON: Bilateral feet radiographs dated 01/13/2023. TECHNIQUE: Right foot radiography. FINDINGS: No acute fracture or malalignment. The joint spaces arepreserved. Small plantar calcaneal enthesophyte. No radiopaque foreignbody. IMPRESSION: No acute bony abnormality. -------- FINAL REPORT -------- Dictated By: Porfirio Kitchen Dictated Date: 05/03/2024 06:00 Assigned Physician: Porfirio Kitchen Reviewed and Electronically Signed By: Porfirio Kitchen Signed Date: 05/03/2024 06:02 Workstation ID: [id number] Transcribed By: Self Edit Transcribed Date: 05/03/2024 06:00 Bj Zhang MD IMG XR PROCEDURES Final Result * POCT [id number] screening, molecular (04/25/2024 1:04 PM EST) Pathologist [facility] [id number] Molecular POCT Negative Negative METHOD [id number]_DIT 04/25/2024 1:14 PM EST [facility] Swab Nasopharyngeal structure / Unknown 04/25/2024 1:04 PM EST 04/25/2024 1:15 PM EST Ashlyn Bermudez DO LAB POINT OF CARE TE ST DOCKED DEVICE UNSOLICITED RESULTS Final Result Performing Organization Address [facility]/ZIP Co de Phone Number [facility] [address] [place] [address] * POCT Influenza type A and B (04/25/2024 1:04 PM EST) Influenza A Screen POCT Negative Negative METHOD [id number] 04/25/2024 1:15 PM EST [facility] Influenza B Screen POCT Negative Negative METHOD [id number]_DIT 04/25/2024 1:15 PM EST [facility] Swab Nasopharyngeal structure / Unknown 04/25/2024 1:04 PM EST 04/25/2024 1:16 PM EST Chaak Bermudez DO LAB POINT OF CARE TE ST DOCKED DEVICE UNSOLICITED RESULTS Final Result Performing Organization Address City/[facility]/ZIP Co de Phone Number [facility] [address] [place] [address] * (ABNORMAL) Inez level (04/11/2024 3:19 AM EST) Inez Level 0.24(L) 0.60 - 1.20 mEq/L LAB CHEMISTRY METHOD 04/11/2024 10:28 AM EST [facility] Blood Venous blood specimen / Unknown Venipuncture / Unknown 04/11/2024 3:19 AM EST 04/11/2024 4:42 AM EST us Terri Capellan DO LAB BLOOD ORDERABLES Final Res ult [facility] [address] [place] [address] from Last 3 Months Insurance COVID19 [facility] [place] Advance Directives Documents on File Type Date Recorded Patient Chemist Physical Expl [facility] Care Decision (hx) 10/13/2022 ADVANCED DIRECTIVE ACKNOWLEDGE * Full Code - Default (Latest Code Status on File) Date Activated Date Inactivated Comments 04/25/2024 10:32 PM 04/30/2024 1:09 PM This is ord er is used when code status has not been discussed with the patient, or code status is otherwise unknown/unconfirmed To update the patient's code status, place a code status order. Do not modify or discontinue any currently active code status orders. Care Teams Outpatient Facility Physical Therapist Relationship Specialty Start Date End Date Physician, No Pcp PCP - General 11/15/22
--- OUTSIDE RECORDS SUMMARY | 2024-07-04 07:33 | XMS_ITS | Clinical Summary ---
Author Organization [facility] Address [address] [place] [address] Care Team Providers Care Glass Glazier Name Role Phone Unavailable Primary Care Provider Unavailabl e Allergies Active Allergy Reactions Criticality Noted Date Comments Nicotine Rash Low 01/30/2022 Medications Medication Sig Dispensed Refills Start Date End Date Status conjugated estrogens (PREMARIN) 25 MG injectionIndications :home meds Inject 5 mg into the muscle. 0 Active QUEtiapine fumarate ER (SEROquel XR) 50 MG TB24 24 hr tabletIndications:Ma tatiana Depressive Disorder Take 1 tablet (50 mg total) by mouth every night at bedtime. 0 Active haloperidol (HALDOL) 10 MG tabletIndications:MD Parish Take 1 tablet (10 mg total) by mouth every night at bedtime. 30 tablet 0 02/02/2022 Active lithium (LITHOBID) 300 MG CR tabletIndications:Ma tatiana Depressive Disorder Take 2 tablets (600 mg total) by mouth 2 (two) times a day with meals. 120 tablet 0 02/02/2022 Active prazosin (MINIPRESS) 1 MG capsuleIndications:N ightmares Take 1 capsule (1 mg total) by mouth every night at bedtime. 30 capsule 0 02/02/2022 Active hydrOXYzine (ATARAX) 50 MG tabletIndications:An xiety Take 1 tablet (50 mg total) by mouth every 6 (six) hours as needed for anxiety (anxiety/agitatio n). 30 tablet 0 02/02/2022 Active traZODone (DESYREL) 50 MG tabletIndications:In somnia Take 1 tablet (50 mg total) by mouth every night at bedtime as needed for sleep (insomnia). 30 tablet 0 02/02/2022 Active lithium 600 MG capsuleIndications:B ipolar Mood Disorder Take 1 capsule (600 mg total) by mouth. 0 Active Active Problems Problem Noted Date Diagnosed Date Anxiety and depression 10/10/2022 Psychosis 10/10/2022 Cocaine use disorder 10/10/2022 Depression 01/30/2022 MDD (major depressive disord er), recurrent severe, without psychosis 01/30/2022 Social History Tobacco Use Types Packs/Day Years Used Date Smoking Tobacco: Every Day Cigarettes 1 Smokeless Tobacco: Never Tobacco Cessation:Ready to Q uit: Not Asked; Counseling Given: Not Answered Alcohol Use Standard Drinks/Week Comments Not Currently 2 (1 standard drink = 0.6 oz pur e alcohol) Sex and Gender Information Value Date Recorded Sex Assigned at Male 10/08/2022 8:00 AM EDT Gender Identity Female 10/08/2022 8:00 AM EDT Sexual Orientation Not on file Job Start Date Occupation Industry Not on file Not on file Not on file Last Filed Vital Signs Vital Sign Reading Time Taken Comments Blood Pressure 113/80 10/12/2022 8:10 AM EDT Pulse 60 10/12/2022 8:10 AM EDT Temperature 36.6 ??C (97.9 ??F) 10/12/2022 8:10 AM ED T Respiratory Rate 18 10/12/2022 8:10 AM EDT Oxygen Saturation 99% 10/12/2022 8:10 AM EDT Inhaled Oxygen Concentration - - Weight 83.1 kg (183 lb 1.6 oz) 10/10/2022 12:20 AM EDT Height 180.3 cm (5' 11 ) 10/10/2022 12:20 AM EDT Body Mass Index 25.54 10/10/2022 12:20 AM EDT Plan of Treatment Not on file Advance Directives For more information, please contact: [phone] Documents on File Type Date Recorded Patient Press Operator Automatic Expl anation Advance Directive and Living Will 10/13/2022 10:47 AM Latest Code Status on File Code Status Date Activated Date Inactivated Comments Full Code 10/10/2022 7:39 AM 10/12/2022 10:20 PM This code status was ascertained in the following way: per unit protocol. Code Status History Code Status Date Activated Date Inactivated Comments Full Code 10/10/2022 7:33 AM 10/10/2022 7:39 AM This code status was ascertained in the following way: per unit protocol. Full Code 01/30/2022 7:09 PM 02/02/2022 6:36 PM This code status was ascertained in the following way: per unit protocol.
[2024-07-04 07:45] VITALS: BP 103/55; PULSE 46; RESP 16; TEMP 36.8; O2SAT 98
[2024-07-04 07:56] LABS: Influenza A PCR NEGATIVE (Negative); Influenza B PCR NEGATIVE (Negative); Resp Syncy Virus RNA Qual PCR NEGATIVE (Negative); SARS COV2 PCR INHOUSE NEGATIVE (Negative)
== END 2024-07-04 07:45 | disposition home or self-care (01) ==
PROVIDERS: Emergency Provider Emergency Medicine
DX: R11.2 Nausea with vomiting, unspecified (principal); K08.89 Other specified disorders of teeth and supporting structures; R45.851 Suicidal ideations; F33.1 Major depressive disorder, recurrent, moderate; Z03.818 Encounter for observation for suspected exposure to other biological agents ruled out
CPT/HCPCS: 0241U; 36415; 80053; 83690; 85025; 99282; 99283

== ENCOUNTER 2024-07-06 02:17 | Emergency (ER) | payer MEDICAID, SELFPAY ==
[2024-07-06 02:29] VITALS: BP 106/49; PULSE 55; RESP 16; TEMP 36.7; O2SAT 96; BMI 25.1
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
--- OUTSIDE RECORDS SUMMARY | 2024-07-06 03:06 | XMS_ITS | Encounter Summary ---
Author Organization [facility] Address [address] [place] [address] Care Team Providers Care Director Strategic Account Management Name Role Phone Physician, No Pcp Primary Care Provider Unavaila ble Encounter Details Date Type Department Care Team (Late st Contact Info) Description 06/18/2024 11:58 AM EDT Hospital Encounter [address] [phone] Olinda Franco MD [address] [place], [place] [id number] Social History Tobacco Use Types Packs/Day Years [...] on filedocumented in this encounter Care Teams Director Strategic Account Management Relationship Specialty Start Date End Date Physician, No Pcp PCP - General 11/15/22 documented as of this encounter
--- OUTSIDE RECORDS SUMMARY | 2024-07-06 03:06 | XMS_ITS | Clinical Summary ---
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
[2024-07-06 03:08] LABS: MANUAL DIFF FLAG NO
[2024-07-06 03:09] LABS: Basophils Absolute Auto 0.1 X10*3/uL (0.0-0.2); Basophils Percent Auto 0.7 % (0-2); Eosinophils Absolute Auto 0.4 X10*3/uL (0.0-0.4); Eosinophils Percent Auto 3.1 % (0-4); Hematocrit 38.5 % (37.0-47.0); Hemoglobin 14.1 g/dl (12.0-16.0); Imm Gran Abs Auto 0.03 X10*3/uL (0.00-0.03); Imm Gran Pct Auto 0.2 % (0.0-0.4); Lymphocytes Absolute Auto 2.8 X10*3/uL (1.2-4.9); Lymphocytes Percent Auto 22.8 % (20-40); Mean Corpuscular HGB Conc 36.6 g/dl (31.0-35.0); Mean Corpuscular Hemoglobin 31.5 pg (27.0-33.0); Mean Corpuscular Volume 86.1 fL (80.0-98.0); Mean Platelet Volume 9.7 fL (9.4-12.3); Monocytes Absolute Auto 1.2 X10*3/uL (0.1-1.2); Monocytes Percent Auto 9.7 % (2-11); Neutrophils Absolute Auto 7.7 x10*3/uL (2.0-8.3); Neutrophils Percent Auto 63.5 % (45-73); Platelet Count 256 X10*3/uL (160-400); Red Blood Count 4.47 X10*6/uL (4.20-5.50); Red Cell Distribution Width 12.2 % (11.0-16.0); White Blood Count 12.1 X10*3/uL (4.8-10.8)
[2024-07-06 03:26] LABS: COVID-19 Test Negative (Negative); IDNOW Serial# 55D5AD1C
[2024-07-06 03:31] LABS: Acetaminophen LAB < 3 mcg/mL (<30); Alanine Aminotransferase 38 U/L (0-31); Albumin Level 3.9 g/dL (3.5-5.0); Alkaline Phosphatase 68 U/L (39-117); Anion Gap 11 (12-20); Aspartate Amino Transferase 56 U/L (5-31); Bilirubin Total 1.1 mg/dL (0.0-1.0); Blood Urea Nitrogen 29 mg/dL (9-16); Calcium 8.8 mg/dL (8.4-10.2); Carbon Dioxide 24 mmol/L (22-29); Chloride 111 mmol/L (96-108); Creatinine Clr Calc Pharmacy 97.3; Estimated Glomerular Filt Rate > 60; Ethanol < 10 mg/dL; Glucose Random 141 mg/dL (60-115); Potassium 3.5 mmol/L (3.3-5.1); Salicylate < 5.0 mg/dL (15-30); Sodium 142 mmol/L (135-145); Total Protein 6.7 g/dL (6.5-8.0)
--- NOTE | 2024-07-06 05:02 | ED_ITS ---
HPI - Psych General Chief Complaint: Psychiatric Symptoms Stated Complaint: SI Time Seen by Provider: 07/06/24 03:00 Source: patient Mode of arrival: ambulatory Limitations: no limitations History of Present Illness ED Provider: Dr. Machelle Stockton HPI Narrative: Patient comes to the emergency room complaining of suicidal ideation, no plan. Denies HI. Patient was seen here 2 days ago for the same complaint. Related Data Home Medications ?Medication ?Instructions ?Recorded ?Confirmed ibuprofen 600 mg tablet 600 mg PO TID 03/04/24 07/06/24 spironolactone 25 mg tablet 25 mg PO BID 03/04/24 07/06/24 Allergies Allergy/AdvReac Type Severity Reaction Status Date / Time nicotine [From NICODERM CQ] Allergy Mild SHORTNESS Verified 07/06/24 02:30 OF BREATH ketchup [KETCHUP] Allergy Unknown RASH Verified 07/06/24 02:30 onion [ONION] Allergy Unknown RASH Verified 07/06/24 02:30 tomato [TOMATO] Allergy Unknown RASH Verified 07/06/24 02:30 Review of Systems 2 Review of Systems: Constitutional : No Weight loss, No Fever, No Chills, No Night Sweats, No Fatigue, No Malaise ENT/Mouth : No Hearing loss, No Ear Pain, No Nasal Congestion, No Sinus Pain, No Hoarseness, No sore throat, No Rhinorrhea, No Swallowing Difficulty Eyes: No Eye Pain, No Swelling, No Redness, No Foreign Body, No Discharge, No Vision Changes Cardiovascular : No Chest Pain, No SOB, No Dyspnea on Exertion, No Orthopnea, No Edema, No Palpitations Respiratory : No Cough, No Sputum, No Wheezing, No Smoke Exposure, No Dyspnea Gastrointestinal : No Nausea, No Vomiting, No Diarrhea, No Constipation, No abdominal Pain, No Hematochezia, No Melena Genitourinary : no irregular bleeding, No Dysuria, No Urinary Frequency, No Hematuria, No Urinary Incontinence, No Urgency, No Flank Pain, No Urinary Flow Changes, No Hesitancy Musculoskeletal : No joint pain, No Myalgias, No Joint Swelling Skin : No Skin Lesions, No rash Neuro : No Weakness, No Numbness, No Paresthesias, No Loss of Consciousness, No Dizziness, No Headache Psych : Complaining of SI, no HI, no plan Heme/Lymph: No Bruising, No Bleeding,No Lymphadenopathy Endocrine : No Polyuria, No Polydipsia, No Temperature Intolerance [facility] Past Medical History Medical History Transgender Personality disorder Bipolar 1 disorder Social History Social History Unable to assess alcohol history related to: Refusing to respond Alcohol intake: current Alcohol intake frequency: holidays/special occasions only Alcohol type: hard liquor Patient Tobacco Use Status: Never used Tobacco Smoked in Last 30 Days: Yes Use of substances other than those prescribed or required for medical reasons: Yes Substance Use Type: Crack/Cocaine Advance Directives: No Do you have a plan to hurt others: No Plan Patient : No Physical Exam 2 Vital Signs: Vital Signs: Last Vital Signs Temp 98.1 F 07/06/24 02:29 Pulse 55 07/06/24 02:29 Resp 16 07/06/24 07:00 BP 106/49 L 07/06/24 02:29 Pulse Ox 96 07/06/24 02:29 O2 Del Method Room Air 07/06/24 02:29 BMI result Body Mass Index 25.1 Const: Other: Appearance: Alert. Oriented X3. No acute distress. Eyes: Pupils equal, round and reactive to light. ENT: Pharynx normal. Neck: Normal inspection. Neck supple. No lymph nodes noted. No crepitus CVS: Normal heart rate and rhythm. Pulses normal. Normal S1 and S2 Respiratory: No respiratory distress. Breath sounds normal. No Wheezing. No rales Abdomen: Soft and nontender. No rigidity. No distention. Skin: Skin warm and dry. Normal skin color. Normal skin turgor. Extremities: No lower extremity edema. No Lacerations. No Rash Neuro: Oriented X 3. No motor deficit. No sensory deficit. Moving all extremities. No slurred speech. CN 2 through 12 grossly intact Psych: calm, cooperative, normal affect Course Reevaluation(s) Reevaluation #1: 07/06/2024 DR. Adrian's progress note: Patient currently is declining SI or HI or hallucination, requesting to be discharged to go to a detox, asking for hospital transportation. Labs were reviewed at baseline. Will discharge the patient, discontinue physician observation. Time: 10:16 Medical Decision Making Medical Decision Making MDM Narrative: No significant abnormality patient's hematology and chemistry, labs are at baseline, no new symptoms. ETOH negative, serology negative Care team consult pending Physician observation started at 03:00 Differential Diagnosis Differential Diagnoses: The differential diagnosis associated with the presentation includes (Anxiety, depression, malingering) Admission/Observation Consideration of admission/observation: Escalation of care including admission/observation considered (Care team consult pending to determine patient's disposition) Lab Data 07/06/24 03:02 07/06/24 03:02 Labs: Lab Results 07/06/24 Range/Units 03:02 WBC 12.1 H (4.8-10.8) X10*3/uL RBC 4.47 (4.20-5.50) X10*6/uL Hgb 14.1 (12.0-16.0) g/dl Hct 38.5 (37.0-47.0) % MCV 86.1 (80.0-98.0) fL MCH 31.5 (27.0-33.0) pg MCHC 36.6 H (31.0-35.0) g/dl RDW 12.2 (11.0-16.0) % Plt Count 256 (160-400) X10*3/uL MPV 9.7 (9.4-12.3) fL Immature Gran % (Auto) 0.2 (0.0-0.4) % Neut % (Auto) 63.5 (45-73) % Lymph % (Auto) 22.8 (20-40) % [place] % (Auto) 9.7 (2-11) % Eos % (Auto) 3.1 (0-4) % Baso % (Auto) 0.7 (0-2) % Lymph # (Auto) 2.8 (1.2-4.9) X10*3/uL [place] # (Auto) 1.2 (0.1-1.2) X10*3/uL Eos # (Auto) 0.4 (0.0-0.4) X10*3/uL Baso # (Auto) 0.1 (0.0-0.2) X10*3/uL Abs Immat Gran (auto) 0.03 (0.00-0.03) X10*3/uL Absolute Neuts (auto) 7.7 (2.0-8.3) x10*3/uL Absolute Nucleated RBC 0.000 (0.0-0.012) X10*3/uL Nucleated RBC % (auto) 0.0 (0.0-0.2) /100WBC Sodium 142 (135-145) mmol/L Potassium 3.5 (3.3-5.1) mmol/L Chloride 111 H (96-108) mmol/L Carbon Dioxide 24 (22-29) mmol/L Anion Gap 11 L (12-20) BUN 29 H (9-16) mg/dL Creatinine 0.79 (0.5-1.4) mg/dL Estim Creat Clear Calc 97.3 Estimated GFR > 60 Random Glucose 141 H (60-115) mg/dL Calcium 8.8 (8.4-10.2) mg/dL Total Bilirubin 1.1 H (0.0-1.0) mg/dL AST 56 H (5-31) U/L ALT 38 H (0-31) U/L Alkaline Phosphatase 68 (39-117) U/L Total Protein 6.7 (6.5-8.0) g/dL Albumin 3.9 (3.5-5.0) g/dL Salicylates < 5.0 L (15-30) mg/dL Acetaminophen < 3 (<30) mcg/mL Ethyl Alcohol < 10 mg/dL COVID-19 ([place]) Negative (Negative) COVID-19 Clin Com See Note Discharge Plan Discharge Clinical Impression: Bipolar 1 disorder Patient Disposition: Home, Self-Care Instructions: Bipolar Disorder (ED) Prescriptions: No Action spironolactone 25 mg tablet 25 mg PO BID ibuprofen 600 mg tablet 600 mg PO TID Interventions: [place]-Suicide Risk Severity Scale Last Done: 07/06/24 03:47 Print Language: Belarusian
--- NOTE | 2024-07-06 06:54 | PC.NURSE ---
Assumed care of patient at 0645, patient appears to be sleeping, respirations even and unlabored, no apparent distress noted. Continue plan of care for medical clearance and CARE team moshe
[2024-07-06 07:00] VITALS: RESP 16
[2024-07-06 10:44] VITALS: BP 106/88; PULSE 68; RESP 16; TEMP 36.7; O2SAT 99
--- NOTE | 2024-07-06 11:04 | MHC.CARE ---
Pt does not meet the criteria for a higher level of care and will be discharged. Pt reports she is going to a rehab in [place] Provider in agreement with disposition.
== END 2024-07-06 11:01 | disposition home or self-care (01) ==
PROVIDERS: Emergency Provider Emergency Medicine
DX: F31.9 Bipolar disorder, unspecified (principal); R45.851 Suicidal ideations; F64.0 Transsexualism; F60.9 Personality disorder, unspecified; F14.10 Cocaine abuse, uncomplicated; Z79.899 Other long term (current) drug therapy
CPT/HCPCS: 80053; 80143; 80179; 80307; 85025; 87635; 99284; 99285; S9485

== ENCOUNTER 2024-07-10 06:40 | Emergency (ER) | payer MEDICAID, SELFPAY ==
--- NOTE | ~2024-07-10 | XR_ITS ---
EXAMINATION: Bilateral tibia and fibula. 2 views each. HISTORY: Fall. Pain over bilaterally since. COMPARISON: None. FINDINGS: Bilateral AP and lateral views of tibia and fibula reveals no fracture, bony abnormality. The soft tissues are normal. The ankle mortise is normal. XR/XR Tibia Fibula Jorge 2V IMPRESSION: Unremarkable bilateral tibia and fibula exam Electronically signed by: Addy Valles MD 07/10/2024 09:07 AM EDT
--- NOTE | ~2024-07-10 | XR_ITS ---
EXAMINATION: XR CHEST CLINICAL INFORMATION: fell downstairs, pain COMPARISON: Chest x-ray 07/11/2021. TECHNIQUE: 2 views of the chest were obtained. FINDINGS: Lungs are well-expanded and clear of acute process. The heart size and pulmonary vascularity is normal. No gross bony abnormality seen. XR/XR chest 2V IMPRESSION: Unremarkable chest exam. Electronically signed by: Addy Valles MD 07/10/2024 09:05 AM EDT
--- NOTE | ~2024-07-10 | XR_ITS ---
EXAMINATION: XR PELVIS CLINICAL INFORMATION: fell down stairs COMPARISON: None available. TECHNIQUE: AP view of the pelvis. FINDINGS: No fracture. Hip joint spaces are maintained. Alignment is anatomic. Sacroiliac joints and pubic symphysis are normal. No abnormal soft tissue calcifications. XR/XR pelvis 1-2V IMPRESSION: Unremarkable AP pelvis exam. Electronically signed by: Addy Valles MD 07/10/2024 09:05 AM EDT
[2024-07-10 06:43] VITALS: BP 130/74; PULSE 46; RESP 18; TEMP 36.1; O2SAT 100; BMI 25.1
--- OUTSIDE RECORDS SUMMARY | 2024-07-10 07:44 | XMS_ITS | Encounter Summary ---
Author Organization [facility] Address [address] [place] [address] Care Team Providers Care Production Editor Name Role Phone Physician, No Pcp Primary Care Provider Unavaila ble Encounter Details Date Type Department Care Team (Late st Contact Info) Description 04/21/2024 Telephone [facility] [address] [place] [address] Rikki Mcneal Social History Tobacco [...] documented as of this encounter Care Teams Production Editor Relationship Specialty Start Date End Date Physician, No Pcp PCP - General 11/15/22 documented as of this encounter
--- OUTSIDE RECORDS SUMMARY | 2024-07-10 07:44 | XMS_ITS | Encounter Summary ---
Author Organization [facility] Address [address] [place] [address] Care Team Providers Care Radiographic Technologist Name Role Phone Physician, No Pcp Primary Care Provider Unavaila ble Encounter Details Date Type Department Care Team (Late st Contact Info) Description 06/18/2024 11:58 AM EDT Hospital Encounter [address] [phone] Olinda Franco MD [address] [place], [place] [id number] Social History Tobacco Use Types Packs/Day Years [...] on filedocumented in this encounter Care Teams Radiographic Technologist Relationship Specialty Start Date End Date Physician, No Pcp PCP - General 11/15/22 documented as of this encounter
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
--- OUTSIDE RECORDS SUMMARY | 2024-07-10 07:45 | XMS_ITS | Clinical Summary ---
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
--- NOTE | 2024-07-10 08:17 | ED_ITS ---
HPI - Fall General Chief Complaint: Fall Stated Complaint: fall Time Seen by Provider: 07/10/24 08:04 Source: patient Mode of arrival: ambulatory Limitations: no limitations History of Present Illness ED Provider: Batsheva Reynolds PA-C HPI Narrative: Patient comes to the emergency department today seeking medical attention for injuries sustained from a slip and fall. Around 05:00 this morning patient states he was about to walk down the steps when he tripped over a bag falling down the flight of stairs. He suspects that he did lose consciousness but he is not certain. He denies being under the influence of any illicit drugs or alcohol during this time. He was able to get himself up after this time and has not felt nauseous or vomited. He is denying any associated neck pain he does have a mild frontal headache but denies any visual changes or dizziness. He is able to move all of his limbs and reports only his shins her a little bit. He is denying any paresthesias or weakness. Patient denies personal history of cancer, IVDU, fevers, chills, night sweats, unintentional wt loss, saddle anesthesia, and change/loss in bladder/ bowel function. He took ibuprofen prior to coming here and has helped. He is concerned about potential brain injury. He denies any associated neck pain just feels pain in his right buttocks. No radiation any relative does not feel short of breath no stomachache no difficulty with breathing. Fall was not witnessed. He denies any symptoms preceding the fall. 850 am: Patient refused CT of his head he understands there is risk for rebleed especially considering the fact that he fell down a flight of stairs. MD complaint: fall Fall witnessed: no Place fall occurred: home Loss of consciousness: yes Related Data Home Medications ?Medication ?Instructions ?Recorded ?Confirmed ibuprofen 600 mg tablet 600 mg PO TID 03/04/24 07/06/24 spironolactone 25 mg tablet 25 mg PO BID 03/04/24 07/06/24 Allergies Allergy/AdvReac Type Severity Reaction Status Date / Time nicotine [From NICODERM CQ] Allergy Mild SHORTNESS Verified 07/10/24 06:43 OF BREATH ketchup [KETCHUP] Allergy Unknown RASH Verified 07/10/24 06:43 onion [ONION] Allergy Unknown RASH Verified 07/10/24 06:43 tomato [TOMATO] Allergy Unknown RASH Verified 07/10/24 06:43 Review of Systems Review of Systems: Yes all other systems are reviewed and are negative Neurologic: Reports Abnormal speech present COUNT INCLUDES THE [facility] Past Medical History Attestation statement: The following information was validated with the patient. Source: nursing notes reviewed Medical History Transgender Personality disorder Bipolar 1 disorder Social History Social History Unable to assess alcohol history related to: Refusing to respond Alcohol intake: current Alcohol intake frequency: holidays/special occasions only Alcohol type: hard liquor Patient Tobacco Use Status: Never used Tobacco Substance Use Type: Crack/Cocaine Advance Directives: No Advance Directives Information Provided: No Do you have a plan to hurt others: No Plan Physical Exam Vital Signs: Vital Signs: Last Vital Signs Temp 98 F 07/10/24 09:33 Pulse 80 07/10/24 09:33 Resp 16 07/10/24 09:33 BP 130/91 H 07/10/24 09:33 Pulse Ox 99 07/10/24 09:33 O2 Del Method Room Air 07/10/24 09:33 BMI result Body Mass Index 25.1 No midline tenderness step-offs or deformities of entire spine no borja sign no raccoon eyes no hemotympanum noted bilaterally no septal hematoma. Moving all extremities without any difficulty bilateral anterior shins are mildly tender to palpation but no deficit with range of motion or obvious skin trauma. DTRs are intact cap refill less 3 seconds distal pulses 2+ Const: General: cooperative, comfortable, no acute distress, alert, awake, Physically active and tired appearing Nutritional Appearance: average body habitus Orientation/consciousness: oriented to time and patient oriented x3 Limitations: no limitations and behavioral limitations HEENT: Head: Yes normal to inspection, Yes No palpable skull fracture present, Yes normocephalic and Yes atraumatic Ears: hearing grossly normal bilaterally, external ears normal, TM's normal bilaterally and mastoids normal General nose exam: Normal external nose present, Normal nares present and Normal nasal mucous membranes and turbinates present Face and sinus: Yes normal facial exam and Yes sinuses nontender Mouth: Normal oral and palatal mucosa present, lip normal and tongue normal Teeth and gingiva: dentition normal and gingiva normal Throat: Yes posterior oropharynx normal Eyes: General: appearance normal, both eyes and all related structures Visual Jules: normal visual jules by confrontation Alignment and Position: alignment normal Periorbital: periorbital findings normal Eyelids: Yes eyelids normal Conjunctivae: conjunctivae normal Sclerae: sclerae normal Corneas: corneas normal Pupils: Equal, round and reactive pupils present EOM: EOMs intact bilaterally Direct Ophthalmoscopy: normal light reflex Neck: Neck: Yes normal visual inspection, Yes full ROM, Yes no lymphadenopathy, Yes no meningeal signs, Yes trachea midline, Yes supple and Yes other (Moving neck in all directions without any tenderness. ) Chest: Chest palpation & inspection: normal inspection of the chest and normal palpation of entire chest wall Resp: Effort & Inspection: normal respiratory effort, able to speak in complete sentences and abnormal respiratory pattern Auscultation: clear to auscultation bilaterally Cardio: Jugular venous distension: no JVD Palpation: normal PMI Rate: regular rate Rhythm: regular rhythm Heart sounds: S1 normal heart sound present and S2 normal heart sound present Peripheral pulses: Peripheral pulses 2+ throughout GI: Inspection: Yes normal to inspection and Yes other (Nontender) Auscultation: normal bowel sounds : General: Yes no CVA tenderness Back/Spine/Pelvis: Back: no CVA tenderness Cervical Spine: normal cervical lordosis and cervical ROM normal Thoracic/Lumbar Spine: thoracic and lumbar spine normal to inspection Pelvis: no pain with anterior-posterior compression Skin: General skin exam: no rashes or lesions noted and turgor normal Lesions: no lesions Rashes: no rashes Trauma: no lacerations or abrasions Wounds: no wounds Hair: normal Nails: normal Neuro: General: oriented to time, patient oriented x3 and no meningeal signs Cranial nerves: Yes CN's II-XII intact bilaterally, Yes Equal, round and reactive pupils present and Yes Bilaterally intact EOM present Cognition (Neuro): normal cognition Speech: Abnormal speech present Gait exam (Neuro): Normal gait present Motor exam (neuro): 5/5 motor strength present throughout Extrem: General: Yes normal to inspection, Yes full ROM and Yes capillary refill normal Right upper extremity: normal to inspection Left upper extremity: normal to inspection Right lower extremity: full ROM and normal capillary refill Left lower extremity: full ROM and normal capillary refill Medical Decision Making Medical Decision Making MDM Narrative: Well-appearing 49-year-old transgender female here for evaluation of injury sustained from a slip and fall down a flight of stairs that occurred earlier today. Patient appeared to be sleeping comfortably but easily arousable at bedside with normal vitals. He had no midline tenderness step-offs or deformities of the entire spine and was moving all extremities without any difficulty low risk for cervical spine fracture via nexus criteria. She is at moderate risk for ICH be a [place] head CT rule. Patient has refused a head CT after it was ordered and she initially agreed. They are able to verbalize back to me the risks of not getting a head CT scan she has totality demonstrating the verbal understanding of the risk of not having this done. Neuro exam is nonfocal. Patient denied any symptoms preceding the fall concerning for potential cardiac pulmonary etiology they appeared to be well hydrated. They deny any EtOH or illicit drug use prior to fall. Secondary trauma exam is not clinically suspicious of any other significant injuries other than mild tenderness over her bilateral shins for which I ordered x-ray imaging of which show no acute fracture or dislocation patient is ambulating without any difficulty. Do not present with any evidence of a concussion clinically however do have concerns for this. Patient with behavioral history however denying any SI HI or AVH psych consult was not placed during visit today. Patient is reporting no pain and would like to go home they been advised to return for any acute concerns there is stable and discharged home. Differential Diagnosis Differential Diagnoses: The differential diagnosis associated with the presentation includes See above Admission/Observation Patient would have been admitted to the hospital had her work up had any findings where hospital admission was appropriate and had her clinical presentation warranted hospital admission. This is also a limited decision based on no head CT. Independent Interpretation I performed an independent interpretation of an: Plain X-Ray Interpretation: No fracture of lower extremities and no obvious fracture or pneumothorax of the chest Radiology Impression Discussion of test interpretation with radiology: I have reviewed the radiologist's reading. Tests considered The following testing was considered but not selected: Head CT as well as neck CT patient declined imaging Prescription Management I considered prescription management with: Pain Medication Pain well controlled asymptomatic no pain medication was given Social Determinants Patient?s care significantly limited by Social Determinants of Health including: Alcoholism and drug addiction in family Discharge Plan Discharge Clinical Impression: Contusion of left lower leg, initial encounter, Contusion of bilateral back wall of thorax, initial encounter, Myalgia Contusion of lower limb, right Qualifiers: Encounter type: initial encounter Qualified Code(s): S80.11XA - Contusion of right lower leg, initial encounter Head injury, acute, with loss of consciousness Qualifiers: Encounter type: initial encounter Qualified Code(s): S06.9X9A - Unspecified intracranial injury with loss of consciousness of unspecified duration, initial encounter Patient Disposition: Home, Self-Care Instructions: Contusion in Adults (ED), Cognitive Disorders after Traumatic Brain Injury (ED) Additional Instructions: You were evaluated for the head injury Your neurologic exam was normal here. You have sustained an injury to your head.?? You have symptoms of a concussion.? We have found no evidence to indicate that your head injury was serious, however, new symptoms and unexpected complications can develop hours or even days after the injury. The first 24 hours are the most crucial and you should remain with a reliable spoon maker at least during this period. If any of the following signs develop please go to the ER immediately. - Drowsiness/increased difficulty arousing the patient - Vomiting - Convulsions or fits - Bleeding or watery drainage from the nose or ear - Severe headache - Weakness or loss of feeling in the arm or leg - Confusion or strange behavior - One pupil (black part of the eye) becomes much larger than the other; peculiar eye movements, double vision, or other visual disturbances Please contact your PCP to arrange a followup appointment for reevaluation.?? Sometimes it can take more than a week for complete recovery. No strenuous exercise.? Avoid activity that requires higher level of concentration (reading, staring at screens - ie computer, cell phones). You should avoid any activity that you feel exacerbates your headache. As you begin to feel better you can slowly begin to introduce new activities until you are feeling well and are able to perform your usual activity without symptoms. ABSOLUTELY NO ACTIVITY WHERE YOU COULD HAVE ANOTHER HEAD INJURY, until you have been cleared by you PCP or a neurologist.? You may eat or drink as usual if you so desire, however, you should not drink alcoholic beverages while experiencing concussive symptoms as this may exacerbate your symptoms. Do not use any pain medications stronger than Acetaminophen (Tylenol) for the first 24 hours. You had imaging done of your chest pelvis and lower extremities no acute fractures were found. You have declined a CT of your head which would rule out an intracranial hemorrhage you understand there is a bleeding risk for this and potentially could result in . You can use Tylenol (acetaminophen) 650 mg every 6 hrs as needed for pain.? Do not take more than 3000 mg in one day! Use intermittent heat 4 or 5 times a day, 20 minutes at a time,? for a few days. You may use topical therapy such as IcyHot with Lidocaine or Aspercream with Lidocaine, both of which are available over the counter. Do not perform any heavy lifting. Go immediately to the Emergency Department if you develop any increased or uncontrolled pain, numbness, tingling, or weakness of the extremities, difficulty urinating or passing stools. Please see your doctor or an orthopedist if not improving over the next 1-2 weeks. Prescriptions: No Action spironolactone 25 mg tablet 25 mg PO BID ibuprofen 600 mg tablet 600 mg PO TID Referrals: Grace Roman MD [Primary Care Provider] - 2 days Interventions: ED Discharge Assessment Last Done: 07/10/24 09:33 Discharge Date/Time: 07/10/24 09:34 Print Language: Sri [place]an
[2024-07-10 09:33] VITALS: BP 130/91; PULSE 80; RESP 16; TEMP 36.6; O2SAT 99
== END 2024-07-10 09:34 | disposition home or self-care (01) ==
PROVIDERS: Emergency Provider Emergency Medicine; PCP Family Medicine
DX: S80.11XA Contusion of right lower leg, initial encounter (principal); S80.12XA Contusion of left lower leg, initial encounter; S20.223A Contusion of bilateral back wall of thorax, initial encounter; R10.2 Pelvic and perineal pain; R07.89 Other chest pain; M79.10 Myalgia, unspecified site; W10.9XXA Fall (on) (from) unspecified stairs and steps, initial encounter; Y93.9 Activity, unspecified; Y92.9 Unspecified place or not applicable; Y99.8 Other external cause status
CPT/HCPCS: 71046; 72170; 73590; 99282; 99283

== ENCOUNTER → 2024-07-10 08:19 | Outpatient (BNV) | payer MEDICAID, SELFPAY | PROVIDERS: Emergency Provider Emergency Medicine; PCP Family Medicine; Visit Provider Radiology Diagnostic Radiology | DX: R07.9 Chest pain, unspecified (principal); R10.2 Pelvic and perineal pain; M79.661 Pain in right lower leg; M79.662 Pain in left lower leg; W19.XXXA Unspecified fall, initial encounter | CPT/HCPCS: 71046; 72170; 73590 ==

== ENCOUNTER 2024-08-03 02:53 | Emergency (ER) | payer MEDICAID, SELFPAY ==
[2024-08-03 03:10] VITALS: BP 109/62; PULSE 64; RESP 18; TEMP 36.4; O2SAT 95; BMI 25.1
--- OUTSIDE RECORDS SUMMARY | 2024-08-03 03:33 | XMS_ITS | Clinical Summary ---
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
--- OUTSIDE RECORDS SUMMARY | 2024-08-03 03:33 | XMS_ITS | Clinical Summary ---
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 WBCs/mcL LAB URINALYSIS - AUTOMATED METHOD 05/17/2024 8:45 AM [facility] Nitrite, Urine Negative Negative LAB URINALYSIS - AUTOMATED METHOD 05/17/2024 8:45 AM [facility] Protein, Urine Negative Negative mg/dL LAB URINALYSIS - AUTOMATED METHOD 05/17/2024 8:45 AM [facility] Glucose, Urine Negative Negative mg/dL LAB URINALYSIS - AUTOMATED METHOD 05/17/2024 8:45 AM [facility] Ketones, Urine Negative Negative mg/dL LAB URINALYSIS - AUTOMATED METHOD 05/17/2024 8:45 AM [facility] Urobilinogen, Urine Negative 0 - 2 mg/dL LAB URINALYSIS - AUTOMATED METHOD 05/17/2024 8:45 AM [facility] Bilirubin, Urine Negative Negative mg/dL LAB URINALYSIS - AUTOMATED METHOD 05/17/2024 8:45 AM [facility] Blood, Urine Negative Negative mg/dL LAB URINALYSIS - AUTOMATED METHOD 05/17/2024 8:45 AM [facility] Urine Urine specimen obtained by clean catch procedure / Unknown Non-blood Collection / Unknown 05/17/2024 8:22 AM EST 05/17/2024 8:31 AM EST us Francisco Javier Pandya DO LAB URINE ORDERABLES Final R esult [facility] [address] [place] [address] * Yanez urine culture tube (05/17/2024 8:22 AM EST) Only the most recent of3 resultswithin the time period is included. Extra Tube Hold for add-ons. 05/17/2024 10:01 AM [facility] Comment:Auto resulted. Urine Urine specimen obtained by clean catch procedure / Unknown Non-blood Collection / Unknown 05/17/2024 8:22 AM EST 05/17/2024 8:31 AM EST us Francisco Javier Pandya DO LAB URINE ORDERABLES Final R esult [facility] [address] [place] [address] * Urinalysis with reflex microscopic and culture (05/08/2024 10:41 AM EST) Pathologist [facility] Color, Urine Yellow Colorless, Yellow, Straw LAB URINALYSIS - AUTOMATED METHOD 05/08/2024 11:22 AM [facility] Clarity, Urine Clear Clear LAB URINALYSIS - AUTOMATED METHOD 05/08/2024 11:22 AM [facility] Specific [place] Urine 1.014 1.005 - 1.030 LAB URINALYSIS - AUTOMATED METHOD 05/08/2024 11:22 AM [facility] pH, Urine 6.0 5.0 - 7.0 pH LAB URINALYSIS - AUTOMATED METHOD 05/08/2024 11:22 AM [facility] Leukocytes, Urine Negative Negative, Trace WBCs/mcL LAB URINALYSIS - AUTOMATED METHOD 05/08/2024 11:22 AM [facility] Nitrite, Urine Negative Negative LAB URINALYSIS - AUTOMATED METHOD 05/08/2024 11:22 AM [facility] Protein, Urine Negative Negative mg/dL LAB URINALYSIS - AUTOMATED METHOD 05/08/2024 11:22 AM [facility] Glucose, Urine Negative Negative mg/dL LAB URINALYSIS - AUTOMATED METHOD 05/08/2024 11:22 AM [facility] Ketones, Urine Negative Negative mg/dL LAB URINALYSIS - AUTOMATED METHOD 05/08/2024 11:22 AM [facility] Urobilinogen, Urine Negative 0 - 2 mg/dL LAB URINALYSIS - AUTOMATED METHOD 05/08/2024 11:22 AM [facility] Bilirubin, Urine Negative Negative mg/dL LAB URINALYSIS - AUTOMATED METHOD 05/08/2024 11:22 AM [facility] Blood, Urine Negative Negative mg/dL LAB URINALYSIS - AUTOMATED METHOD 05/08/2024 11:22 AM [facility] Urine Urine specimen obtained by clean catch procedure / Unknown Non-blood Collection / Unknown 05/08/2024 10:41 AM EST 05/08/2024 10:50 AM EST Vishal ZIMMERMAN LAB URINE ORDERABLES Final R esult [facility] [address] [place] [address] * Yellow urine no additive (05/08/2024 10:41 AM EST) Extra Tube Hold for add-ons. 05/08/2024 12:02 PM [facility] Comment:Auto resulted. 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 Care Teams [employer] Operator Relationship Specialty Start Date End Date Physician, No Pcp PCP - General 11/15/22
[2024-08-03 04:39] LABS: MANUAL DIFF FLAG NO
[2024-08-03 04:40] LABS: Basophils Absolute Auto 0.1 X10*3/uL (0.0-0.2); Basophils Percent Auto 0.4 % (0-2); Eosinophils Absolute Auto 0.2 X10*3/uL (0.0-0.4); Eosinophils Percent Auto 1.9 % (0-4); Hematocrit 37.9 % (37.0-47.0); Hemoglobin 13.3 g/dl (12.0-16.0); Imm Gran Abs Auto 0.03 X10*3/uL (0.00-0.03); Imm Gran Pct Auto 0.2 % (0.0-0.4); Lymphocytes Absolute Auto 3.5 X10*3/uL (1.2-4.9); Lymphocytes Percent Auto 28.2 % (20-40); Mean Corpuscular HGB Conc 35.1 g/dl (31.0-35.0); Mean Corpuscular Hemoglobin 31.1 pg (27.0-33.0); Mean Corpuscular Volume 88.6 fL (80.0-98.0); Mean Platelet Volume 10.1 fL (9.4-12.3); Monocytes Absolute Auto 1.1 X10*3/uL (0.1-1.2); Neutrophils Absolute Auto 7.5 x10*3/uL (2.0-8.3); Neutrophils Percent Auto 60.3 % (45-73); Platelet Count 239 X10*3/uL (160-400); Red Blood Count 4.28 X10*6/uL (4.20-5.50); Red Cell Distribution Width 12.9 % (11.0-16.0); White Blood Count 12.5 X10*3/uL (4.8-10.8)
[2024-08-03 05:03] LABS: Alanine Aminotransferase 38 U/L (0-31); Albumin Level 3.7 g/dL (3.5-5.0); Alkaline Phosphatase 70 U/L (39-117); Anion Gap 15 (12-20); Aspartate Amino Transferase 35 U/L (5-31); Bilirubin Total 0.6 mg/dL (0.0-1.0); Blood Urea Nitrogen 22 mg/dL (9-16); Calcium 8.8 mg/dL (8.4-10.2); Carbon Dioxide 23 mmol/L (22-29); Chloride 108 mmol/L (96-108); Creatinine Clr Calc Pharmacy 102.5; Estimated Glomerular Filt Rate > 60; Ethanol < 10 mg/dL; Glucose Random 144 mg/dL (60-115); Potassium 3.6 mmol/L (3.3-5.1); Sodium 142 mmol/L (135-145); Total Protein 6.4 g/dL (6.5-8.0)
--- NOTE | 2024-08-03 05:03 | ED.PSYCH ---
HPI - Psych General Chief Complaint: Psychiatric Symptoms Stated Complaint: SI Time Seen by Provider: 08/03/24 04:33 Source: patient Mode of arrival: ambulatory Limitations: no limitations History of Present Illness ED Provider: Dr. Machelle Stockton HPI Narrative: Patient comes to the emergency room complaining of suicidal ideation. Patient states that earlier today she tried to overdose with fentanyl. Denies HI Related Data Home Medications ?Medication ?Instructions ?Recorded ?Confirmed ibuprofen 600 mg tablet 600 mg PO TID 03/04/24 07/06/24 spironolactone 25 mg tablet 25 mg PO BID 03/04/24 07/06/24 Allergies Allergy/AdvReac Type Severity Reaction Status Date / Time nicotine [From NICODERM CQ] Allergy Mild SHORTNESS Verified 08/03/24 03:14 OF BREATH ketchup [KETCHUP] Allergy Unknown RASH Verified 08/03/24 03:14 onion [ONION] Allergy Unknown RASH Verified 08/03/24 03:14 tomato [TOMATO] Allergy Unknown RASH Verified 08/03/24 03:14 Review of Systems Review of Systems: Constitutional : No Weight loss, No Fever, No Chills, No Night Sweats, No Fatigue, No Malaise ENT/Mouth : No Hearing loss, No Ear Pain, No Nasal Congestion, No Sinus Pain, No Hoarseness, No sore throat, No Rhinorrhea, No Swallowing Difficulty Eyes: No Eye Pain, No Swelling, No Redness, No Foreign Body, No Discharge, No Vision Changes Cardiovascular : No Chest Pain, No SOB, No Dyspnea on Exertion, No Orthopnea, No Edema, No Palpitations Respiratory : No Cough, No Sputum, No Wheezing, No Smoke Exposure, No Dyspnea Gastrointestinal : No Nausea, No Vomiting, No Diarrhea, No Constipation, No abdominal Pain, No Hematochezia, No Melena Genitourinary : no irregular bleeding, No Dysuria, No Urinary Frequency, No Hematuria, No Urinary Incontinence, No Urgency, No Flank Pain, No Urinary Flow Changes, No Hesitancy Musculoskeletal : No joint pain, No Myalgias, No Joint Swelling Skin : No Skin Lesions, No rash Neuro : No Weakness, No Numbness, No Paresthesias, No Loss of Consciousness, No Dizziness, No Headache Psych : No Anxiety/Panic, complaining of depression, SI, polysubstance abuse Heme/Lymph: No Bruising, No Bleeding,No Lymphadenopathy Endocrine : No Polyuria, No Polydipsia, No Temperature Intolerance COUNTS INCLUDE 234 BEDS AT [facility] Past Medical History Medical History Cocaine abuse Transgender Personality disorder Bipolar 1 disorder Social History Social History Unable to assess alcohol history related to: Refusing to respond Alcohol intake: current Alcohol intake frequency: holidays/special occasions only Alcohol type: hard liquor Patient Tobacco Use Status: Never used Tobacco Use of substances other than those prescribed or required for medical reasons: Yes Substance Use Type: Heroin and Opiates Advance Directives: No Advance Directives Information Provided: Yes Do you have a plan to hurt others: No Plan Patient : No Physical Exam Vital Signs: Vital Signs: Last Vital Signs Temp 97.9 F 08/04/24 09:05 Pulse 60 08/04/24 09:05 Resp 18 08/04/24 09:05 BP 108/67 08/04/24 09:05 Pulse Ox 99 08/04/24 09:05 O2 Del Method Room Air 08/04/24 09:05 BMI result Body Mass Index 25.1 Const: Other: Appearance: Alert. Oriented X3. No acute distress. Eyes: Pupils equal, round and reactive to light. ENT: Pharynx normal. Neck: Normal inspection. Neck supple. No lymph nodes noted. No crepitus CVS: Normal heart rate and rhythm. Pulses normal. Normal S1 and S2 Respiratory: No respiratory distress. Breath sounds normal. No Wheezing. No rales Abdomen: Soft and nontender. No rigidity. No distention. Skin: Skin warm and dry. Normal skin color. Normal skin turgor. Extremities: No lower extremity edema. No Lacerations. No Rash Neuro: Oriented X 3. No motor deficit. No sensory deficit. Moving all extremities. No slurred speech. CN 2 through 12 grossly intact Psych: calm, cooperative, normal affect Course Course Course Narrative: Care team consult pending Labs spent Physician observation started at 05:00 Reevaluation(s) Reevaluation #1: Time: 11:26 Date: 08/04/24 Provider: Ashely Medrano DO Physician observation ended at 1126am. Patient to be admitted as inpatient to psychiatry. [facility] Decision Making Medical Decision Making [facility] Narrative: My interpretation of labs: Patient's white blood cell count 12.5, no other significant abnormality in patient's hematology, chemistry does not show any acute abnormality, normal LFTs, ETOH negative Urinalysis pending Care team consult pending Differential Diagnosis Differential Diagnoses: The differential diagnosis associated with the presentation includes (Anxiety, depression, polysubstance abuse, bipolar disorder) Admission/Observation Consideration of admission/observation: Escalation of care including admission/observation considered (Patient waiting to be seen to determine patient's disposition) Lab Data MDM Lab Attestation statement: I reviewed the patient's lab results. 08/03/24 04:36 08/03/24 04:36 Labs: Lab Results 08/03/24 08/03/24 Range/Units 04:36 14:36 WBC 12.5 H (4.8-10.8) X10*3/uL RBC 4.28 (4.20-5.50) X10*6/uL Hgb 13.3 (12.0-16.0) g/dl Hct 37.9 (37.0-47.0) % MCV 88.6 (80.0-98.0) fL MCH 31.1 (27.0-33.0) pg MCHC 35.1 H (31.0-35.0) g/dl RDW 12.9 (11.0-16.0) % Plt Count 239 (160-400) X10*3/uL MPV 10.1 (9.4-12.3) fL Immature Gran % (Auto) 0.2 (0.0-0.4) % Neut % (Auto) 60.3 (45-73) % Lymph % (Auto) 28.2 (20-40) % Cherry % (Auto) 9.0 (2-11) % Eos % (Auto) 1.9 (0-4) % Baso % (Auto) 0.4 (0-2) % Lymph # (Auto) 3.5 (1.2-4.9) X10*3/uL Cherry # (Auto) 1.1 (0.1-1.2) X10*3/uL Eos # (Auto) 0.2 (0.0-0.4) X10*3/uL Baso # (Auto) 0.1 (0.0-0.2) X10*3/uL Abs Immat Gran (auto) 0.03 (0.00-0.03) X10*3/uL Absolute Neuts (auto) 7.5 (2.0-8.3) x10*3/uL Absolute Nucleated RBC 0.000 (0.0-0.012) X10*3/uL Nucleated RBC % (auto) 0.0 (0.0-0.2) /100WBC Sodium 142 (135-145) mmol/L Potassium 3.6 (3.3-5.1) mmol/L Chloride 108 (96-108) mmol/L Carbon Dioxide 23 (22-29) mmol/L Anion Gap 15 (12-20) BUN 22 H (9-16) mg/dL Creatinine 0.75 (0.5-1.4) mg/dL Estim Creat Clear Calc 102.5 Estimated GFR > 60 Random Glucose 144 H (60-115) mg/dL Calcium 8.8 (8.4-10.2) mg/dL Total Bilirubin 0.6 (0.0-1.0) mg/dL AST 35 H (5-31) U/L ALT 38 H (0-31) U/L Alkaline Phosphatase 70 (39-117) U/L Total Protein 6.4 L (6.5-8.0) g/dL Albumin 3.7 (3.5-5.0) g/dL Urine Color Yellow Urine Appearance Clear Urine pH 5.5 (5.0-9.0) Ur Specific Jber >= 1.030 H (1.005-1.025) Urine Protein Negative (Neg-Trace) mg/dL Urine Glucose (UA) Negative (Negative) mg/dL Urine Ketones Trace (Negative) mg/dL Urine Blood Negative (Negative) Urine Nitrite Negative (Negative) Ur Leukocyte Esterase Negative (Negative) Urine Opiates Screen Not Detected (Not Detect) Ur Buprenorphine Scrn Not Detected (Not Detect) ng/mL Ur Oxycodone Screen Not Detected (Not Detect) ng/mL Urine Methadone Screen Not Detected (Not Detect) ng/mL Urine Fentanyl Screen Not Detected (Not Detect) Ur Barbiturates Screen Not Detected (Not Detect) Ur Phencyclidine Scrn Not Detected (Not Detect) Ur Amphetamines Screen Not Detected (Not Detect) U Benzodiazepines Scrn Not Detected (Not Detect) Urine Cocaine Screen POSITIVE H (Not Detect) U Marijuana (THC) Screen Not Detected (Not Detect) Ethyl Alcohol < 10 mg/dL Critical Care Time Critical Care Time Critical Care Time: Yes Total Critical Care Time: 35 Attestation: I have personally provided critical care time. Time includes review of lab data, radiology results, discussion with consultants, and monitoring for potential decompensation. Intervention performed as documented. Discharge Plan Discharge Clinical Impression: Suicidal ideation Patient Disposition: Xfer Psychiatric Hosp Transfer Details: TO: [facility], ACCEPTING DR YVETTE MARCELINO Prescriptions: No Action spironolactone 25 mg tablet 25 mg PO BID ibuprofen 600 mg tablet 600 mg PO TID Referrals: Grace Roman MD [Primary Care Provider] - Interventions: Berkley-Suicide Risk Severity Scale Last Done: 08/03/24 08:42 Print Language: Egyptian
--- NOTE | 2024-08-03 07:46 | PC.NURSE ---
Care Team at bedside for eval.
--- NOTE | 2024-08-03 11:05 | PC.NURSE ---
Report received. Taken over care at this time.
[2024-08-03 14:47] LABS: Appearance Urine Clear; Color Urine Yellow; Glucose Urine UA Negative (Negative); Leukocyte Esterase Urine Negative (Negative); Nitrite Urine Negative (Negative); PH 5.5 (5.0-9.0); Specific Gravity - Urine >= 1.030 (1.005-1.025); Urine Blood Negative (Negative); Urine Ketones Trace mg/dL (Negative); Urine Protein Negative (Neg-Trace)
[2024-08-03 14:59] LABS: Amphetamine Screen Urine Not Detected (Not Detect); Barbiturates, Urine Not Detected (Not Detect); Benzodiazepines Screen Urine Not Detected (Not Detect); Buprenorphine Scr Not Detected (Not Detect); Cannabinoid Screen Urine Not Detected (Not Detect); Cocaine Screen Urine POSITIVE (Not Detect); Fentanyl, urine Not Detected (Not Detect); Methadone Screen, Urine Not Detected (Not Detect); Opiate Screen Urine Not Detected (Not Detect); Oxycodone Screen Urine Not Detected (Not Detect); Phencyclidine Screen Urine Not Detected (Not Detect)
[2024-08-03 15:06] VITALS: BP 97/53; PULSE 60; RESP 18; TEMP 36.5; O2SAT 96
--- NOTE | 2024-08-03 22:14 | MHC.EDTECH ---
pt refused checking her VS stating she is not dying
--- NOTE | 2024-08-04 07:41 | MHC.CARE ---
Pt [facility] accepted to [facility] by [facility] for today 08/04/24. The accepting provider is Dr. Shane Pimentel and the ETA is 12pm. The address is [address] [place] [address]. ED RN and CARE team have been notified of placement. [facility] will call to do nurse to nurse.
--- NOTE | 2024-08-04 08:19 | PC.NURSE ---
pt has been accepted [facility], report has been called to [facility]. pt is agreeable to plan. pt is caox4 and speaking in clear and even tones, she is intercating approprialty with staff and maintains appropriate eye contact.
[2024-08-04 09:05] VITALS: BP 108/67; PULSE 60; RESP 18; TEMP 36.6; O2SAT 99
--- NOTE | 2024-08-04 11:11 | PC.NURSE ---
Report recieved. Taken over care at this time.
[2024-08-04 14:13] VITALS: BP 108/67; PULSE 60; RESP 18; TEMP 36.6; O2SAT 99
== END 2024-08-04 14:14 ==
PROVIDERS: Emergency Provider Emergency Medicine
DX: R45.851 Suicidal ideations (principal); F11.10 Opioid abuse, uncomplicated; Z51.81 Encounter for therapeutic drug level monitoring; Z79.899 Other long term (current) drug therapy
CPT/HCPCS: 36415; 80053; 80307; 81003; 85025; 99285; S9485

== ENCOUNTER 2024-08-21 03:19 | Emergency (ER) | payer MEDICAID, SELFPAY ==
[2024-08-21 03:22] VITALS: BP 118/73; PULSE 92; RESP 18; TEMP 36.6; O2SAT 95; BMI 25.1
--- NOTE | 2024-08-21 03:37 | ED.PSYCH ---
HPI - Psych General Chief Complaint: Psychiatric Symptoms Stated Complaint: SI Time Seen by Provider: 08/21/24 03:30 Source: patient Mode of arrival: ambulatory Limitations: no limitations History of Present Illness ED Provider: Dr. Machelle Stockton HPI Narrative: Patient comes to the emergency room complaining of feeling suicidal for 2 weeks, initially in triage patient said that she has not plan. Then she told her nurse that patient wants to cut her wrists. Patient denies trying to hurt herself in any way before arriving to the emergency room. Related Data Home Medications ?Medication ?Instructions ?Recorded ?Confirmed No Known Home Meds 08/21/24 08/21/24 Allergies Allergy/AdvReac Type Severity Reaction Status Date / Time nicotine [From NICODERM CQ] Allergy Mild SHORTNESS Verified 08/21/24 03:23 OF BREATH ketchup [KETCHUP] Allergy Unknown RASH Verified 08/21/24 03:23 onion [ONION] Allergy Unknown RASH Verified 08/21/24 03:23 tomato [TOMATO] Allergy Unknown RASH Verified 08/21/24 03:23 Review of Systems Review of Systems: Constitutional : No Weight loss, No Fever, No Chills, No Night Sweats, No Fatigue, No Malaise ENT/Mouth : No Hearing loss, No Ear Pain, No Nasal Congestion, No Sinus Pain, No Hoarseness, No sore throat, No Rhinorrhea, No Swallowing Difficulty Eyes: No Eye Pain, No Swelling, No Redness, No Foreign Body, No Discharge, No Vision Changes Cardiovascular : No Chest Pain, No SOB, No Dyspnea on Exertion, No Orthopnea, No Edema, No Palpitations Respiratory : No Cough, No Sputum, No Wheezing, No Smoke Exposure, No Dyspnea Gastrointestinal : No Nausea, No Vomiting, No Diarrhea, No Constipation, No abdominal Pain, No Hematochezia, No Melena Genitourinary : no irregular bleeding, No Dysuria, No Urinary Frequency, No Hematuria, No Urinary Incontinence, No Urgency, No Flank Pain, No Urinary Flow Changes, No Hesitancy Musculoskeletal : No joint pain, No Myalgias, No Joint Swelling Skin : No Skin Lesions, No rash Neuro : No Weakness, No Numbness, No Paresthesias, No Loss of Consciousness, No Dizziness, No Headache Psych : No Anxiety/Panic, complaining of suicidal ideation Heme/Lymph: No Bruising, No Bleeding,No Lymphadenopathy Endocrine : No Polyuria, No Polydipsia, No Temperature Intolerance [facility] Past Medical History Medical History Cocaine abuse Transgender Personality disorder Bipolar 1 disorder Social History Social History Unable to assess alcohol history related to: Refusing to respond Alcohol intake: current Alcohol intake frequency: does not drink Alcohol type: hard liquor Patient Tobacco Use Status: Never used Tobacco Smoked in Last 30 Days: No Use of substances other than those prescribed or required for medical reasons: No Substance Use Type: Heroin and Opiates Advance Directives: No Advance Directives Information Provided: Yes Do you have a plan to hurt others: No Plan Patient : No Physical Exam Vital Signs: Vital Signs: Last Vital Signs Temp 98.2 F 08/21/24 09:08 Pulse 68 08/21/24 09:08 Resp 16 08/21/24 09:08 BP 105/48 L 08/21/24 09:08 Pulse Ox 98 08/21/24 09:08 O2 Del Method Room Air 08/21/24 09:08 BMI result Body Mass Index 25.1 Const: Other: Appearance: Alert. Oriented X3. No acute distress. Eyes: Pupils equal, round and reactive to light. ENT: Pharynx normal. Neck: Normal inspection. Neck supple. No lymph nodes noted. No crepitus CVS: Normal heart rate and rhythm. Pulses normal. Normal S1 and S2 Respiratory: No respiratory distress. Breath sounds normal. No Wheezing. No rales Abdomen: Soft and nontender. No rigidity. No distention. Skin: Skin warm and dry. Normal skin color. Normal skin turgor. Patient has chronic abrasions to the left knee, do not seem infected. Extremities: No lower extremity edema. No Lacerations. No Rash Neuro: Oriented X 3. No motor deficit. No sensory deficit. Moving all extremities. No slurred speech. CN 2 through 12 grossly intact Psych: calm, cooperative, normal affect Course Course Course Narrative: All of patient's labs pending Care team consult pending Reevaluation(s) Reevaluation #1: Time: 07:05 Date: 08/21/24 Provider: Ashely Medrano, DO Patient in physician observation for psychiatric evaluation.? No acute events reported overnight. No current complaints. VS stable.? Pending CARE team evaluation. Will continue to monitor. Reevaluation #2: Time: 10:09 Date: 08/21/24 Provider: Ashely Medrano DO Physician observation ended at 1009am. Patient has been cleared for discharge by the CARE team. Will follow up as an outpatient. Medical Decision Making Medical Decision Making [facility] Narrative: My interpretation of labs: Patient's white blood cell count 11.2, chronic leukocytosis, no significant abnormality in patient's chemistry urine negative for UTI, U tox positive for cocaine, ETOH negative Physician observation started at 03:35 The care team evaluated the patient. Recommendations: Respite and re-evaluation in the morning by the care team. Differential Diagnosis Differential Diagnoses: The differential diagnosis associated with the presentation includes (Anxiety, depression, bipolar disorder, polysubstance abuse) Admission/Observation Consideration of admission/observation: Escalation of care including admission/observation considered (Patient is under physician observation waiting to be seen by the care team to determine disposition) Consult Healthcare Provider Management of the patient was discussed with: Behavioral Health Provider Lab Data [facility] Lab Attestation statement: I reviewed the patient's lab results. 08/21/24 03:54 08/21/24 03:54 Labs: Lab Results 08/21/24 08/21/24 Range/Units 03:54 03:55 WBC 11.2 H (4.8-10.8) X10*3/uL RBC 4.73 (4.20-5.50) X10*6/uL Hgb 14.7 (12.0-16.0) g/dl Hct 41.2 (37.0-47.0) % MCV 87.1 (80.0-98.0) fL MCH 31.1 (27.0-33.0) pg MCHC 35.7 H (31.0-35.0) g/dl RDW 12.6 (11.0-16.0) % Plt Count 237 (160-400) X10*3/uL MPV 10.2 (9.4-12.3) fL Immature Gran % (Auto) 0.3 (0.0-0.4) % Neut % (Auto) 61.8 (45-73) % Lymph % (Auto) 26.2 (20-40) % [place] % (Auto) 9.3 (2-11) % Eos % (Auto) 1.8 (0-4) % Baso % (Auto) 0.6 (0-2) % Lymph # (Auto) 2.9 (1.2-4.9) X10*3/uL [place] # (Auto) 1.0 (0.1-1.2) X10*3/uL Eos # (Auto) 0.2 (0.0-0.4) X10*3/uL Baso # (Auto) 0.1 (0.0-0.2) X10*3/uL Abs Immat Gran (auto) 0.03 (0.00-0.03) X10*3/uL Absolute Neuts (auto) 6.9 (2.0-8.3) x10*3/uL Absolute Nucleated RBC 0.000 (0.0-0.012) X10*3/uL Nucleated RBC % (auto) 0.0 (0.0-0.2) /100WBC Sodium 143 (135-145) mmol/L Potassium 3.6 (3.3-5.1) mmol/L Chloride 105 (96-108) mmol/L Carbon Dioxide 28 (22-29) mmol/L Anion Gap 14 (12-20) BUN 25 H (9-16) mg/dL Creatinine 0.76 (0.5-1.4) mg/dL Estim Creat Clear Calc 101.2 Estimated GFR > 60 Random Glucose 100 (60-115) mg/dL Calcium 9.3 (8.4-10.2) mg/dL Total Bilirubin 1.4 H (0.0-1.0) mg/dL AST 32 H (5-31) U/L ALT 25 (0-31) U/L Alkaline Phosphatase 67 (39-117) U/L Total Protein 6.9 (6.5-8.0) g/dL Albumin 4.3 (3.5-5.0) g/dL Urine Opiates Screen Not Detected (Not Detect) Ur Buprenorphine Scrn Not Detected (Not Detect) ng/mL Ur Oxycodone Screen Not Detected (Not Detect) ng/mL Urine Methadone Screen Not Detected (Not Detect) ng/mL Urine Fentanyl Screen Not Detected (Not Detect) Ur Barbiturates Screen Not Detected (Not Detect) Ur Phencyclidine Scrn Not Detected (Not Detect) Ur Amphetamines Screen Not Detected (Not Detect) U Benzodiazepines Scrn Not Detected (Not Detect) Urine Cocaine Screen POSITIVE H (Not Detect) U Marijuana (THC) Screen Not Detected (Not Detect) Ethyl Alcohol < 10 mg/dL Critical Care Time Critical Care Time Critical Care Time: Yes Total Critical Care Time: 35 Attestation: I have personally provided critical care time. Time includes review of lab data, radiology results, discussion with consultants, and monitoring for potential decompensation. Intervention performed as documented. Discharge Plan Discharge Clinical Impression: Suicidal ideation, Cocaine abuse Patient Disposition: Home, Self-Care Instructions: Cocaine Use Disorder (ED) Additional Instructions: You were seen in our Emergency Department today for treatment of a behavioral health issue. It is important after your visit that you follow up with either your behavioral health provider or a primary care doctor within 7 days.? If you have trouble finding a therapist you can reach out to [address] [phone] The National Suicide and Crisis Lifeline can be reached 7 days a week 24 hours a day.? Call 988 to speak with someone.? Return for any worsening symptoms or concerns such as thoughts of self harm or harm to others. Please call 911 if you feel your mental health is worsening.? Prescriptions: No Action No Known Home Meds Interventions: [place]-Suicide Risk Severity Scale Last Done: 08/21/24 03:41 Print Language: Occitan
--- NOTE | 2024-08-21 03:50 | PC.NURSE ---
Pt self presents aox4, calm and cooperative, in no distress. Pt states SI with plan to cut the wrist. Multiple papules noted on the left lower extremity. Denies any pain, sob, N/V/D, or urinary symptoms. Food and drink provided as requested. Labs and urine sent. at bedside. Monitoring is ongoing.
[2024-08-21 03:59] LABS: Basophils Absolute Auto 0.1 X10*3/uL (0.0-0.2); Basophils Percent Auto 0.6 % (0-2); Eosinophils Absolute Auto 0.2 X10*3/uL (0.0-0.4); Eosinophils Percent Auto 1.8 % (0-4); Hematocrit 41.2 % (37.0-47.0); Hemoglobin 14.7 g/dl (12.0-16.0); Imm Gran Abs Auto 0.03 X10*3/uL (0.00-0.03); Imm Gran Pct Auto 0.3 % (0.0-0.4); Lymphocytes Absolute Auto 2.9 X10*3/uL (1.2-4.9); Lymphocytes Percent Auto 26.2 % (20-40); MANUAL DIFF FLAG NO; Mean Corpuscular HGB Conc 35.7 g/dl (31.0-35.0); Mean Corpuscular Hemoglobin 31.1 pg (27.0-33.0); Mean Corpuscular Volume 87.1 fL (80.0-98.0); Mean Platelet Volume 10.2 fL (9.4-12.3); Monocytes Percent Auto 9.3 % (2-11); Neutrophils Absolute Auto 6.9 x10*3/uL (2.0-8.3); Neutrophils Percent Auto 61.8 % (45-73); Platelet Count 237 X10*3/uL (160-400); Red Blood Count 4.73 X10*6/uL (4.20-5.50); Red Cell Distribution Width 12.6 % (11.0-16.0); White Blood Count 11.2 X10*3/uL (4.8-10.8)
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
--- OUTSIDE RECORDS SUMMARY | 2024-08-21 04:10 | XMS_ITS | Clinical Summary ---
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
[2024-08-21 04:13] LABS: Amphetamine Screen Urine Not Detected (Not Detect); Barbiturates, Urine Not Detected (Not Detect); Benzodiazepines Screen Urine Not Detected (Not Detect); Buprenorphine Scr Not Detected (Not Detect); Cannabinoid Screen Urine Not Detected (Not Detect); Cocaine Screen Urine POSITIVE (Not Detect); Fentanyl, urine Not Detected (Not Detect); Methadone Screen, Urine Not Detected (Not Detect); Opiate Screen Urine Not Detected (Not Detect); Oxycodone Screen Urine Not Detected (Not Detect); Phencyclidine Screen Urine Not Detected (Not Detect)
[2024-08-21 04:22] LABS: Alanine Aminotransferase 25 U/L (0-31); Albumin Level 4.3 g/dL (3.5-5.0); Alkaline Phosphatase 67 U/L (39-117); Anion Gap 14 (12-20); Aspartate Amino Transferase 32 U/L (5-31); Bilirubin Total 1.4 mg/dL (0.0-1.0); Blood Urea Nitrogen 25 mg/dL (9-16); Calcium 9.3 mg/dL (8.4-10.2); Carbon Dioxide 28 mmol/L (22-29); Chloride 105 mmol/L (96-108); Creatinine Clr Calc Pharmacy 101.2; Estimated Glomerular Filt Rate > 60; Ethanol < 10 mg/dL; Glucose Random 100 mg/dL (60-115); Potassium 3.6 mmol/L (3.3-5.1); Sodium 143 mmol/L (135-145); Total Protein 6.9 g/dL (6.5-8.0)
--- NOTE | 2024-08-21 06:14 | PC.NURSE ---
Pt arrives via EMS on a section 12 calm and cooperative. Stating not wanting to be here and denying SI HI. Pt states being discharged from a section 35 on August 12 and not having any of his medications since August 14, states I missed my injection . Pt reports being on Methadone 85mg from [facility]. Dose to be confirmed. Denies any concerns or complaints at this time. Food and drink provided as requested. Urine and blood sent to the lab. at bedside. Monitoring is ongoing.
[2024-08-21 09:08] VITALS: BP 105/48; PULSE 68; RESP 16; TEMP 36.8; O2SAT 98
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
[2024-08-21 10:52] VITALS: BP 105/48; PULSE 68; RESP 18; TEMP 36.8; O2SAT 98
== END 2024-08-21 10:59 | disposition home or self-care (01) ==
PROVIDERS: Emergency Provider Emergency Medicine
DX: F14.10 Cocaine abuse, uncomplicated (principal); R45.851 Suicidal ideations; F31.9 Bipolar disorder, unspecified; F60.9 Personality disorder, unspecified; F64.0 Transsexualism
CPT/HCPCS: 36415; 80053; 80307; 85025; 99285; S9485

== ENCOUNTER 2025-03-02 23:08 | Inpatient (IN) | payer OTHER, SELFPAY ==
[2025-03-02 23:18] VITALS: BP 122/61; PULSE 77; RESP 16; TEMP 36.7; O2SAT 96; BMI 25.1
--- OUTSIDE RECORDS SUMMARY | 2025-03-02 23:37 | XMS_ITS | Clinical Summary ---
Author Organization [facility] Address [address] [place] [address] Phone Care Team Providers Care Yarding Supervisor Name Role Phone Pcp, Unknown Primary Care Provider Grace Carpenetr MD Unavailable [phone] Allergies Active Allergy Reactions Criticality Noted Date Comments Nicotine Rash Low 01/30/2022 Medications * This document contains information received from the source organization and may not represent a complete record from that organization. DEPO-ESTRADIOL 5 mg/mL injection INJECT 5MG (1ML) INTRAMUSCULARLY ONCE A WEEK 03/11/20 22 Active lithium (LITHOBID) 450 MG ER tablet Take 2 tablets (900 mg total) by mouth every 12 (twelve) hours. 60 tablet 08/02/19 24 Active spironolactone (ALDACTONE) 100 MG tablet Take 1 tablet (100 mg total) by mouth daily. 15 tablet 08/02/19 24 Active Active Problems Problem Noted Date Diagnosed Date Trauma and stressor-related disorder 08/02/2023 Verbalizes suicidal thoughts 05/29/2022 Major depression, recurrent 10/11/2021 Bipolar affective disorder, depressed, severe Bipolar I disorder with depression, severe 01/03 Unspecified mood (affective) disorder 04/06/2018 Resolved Problems Problem Noted Date Diagnosed Date Resolved Date Suicidal ideation 09/21/2022 08/02/2023 Encounters Date Type Department Care Team Description 12/29/2024 [facility] RISK SCORES SYSTEM GENERATED External System Generated Encounter [address] [place] [address] Unknown, Unknown, from Last 3 Months Immunizations Immunization Administration Dates Next Due Influenza Quadrivalent Prese rvative Free IM 01/04/2019(Deferred: Patient Refused) Social History Tobacco Use Types Packs/Day Years Used Date Smoking Tobacco: Every Day Cigarettes 0.5 10 Smokeless Tobacco: Never Tobacco Cessation:Ready to Q uit: No; Counseling Given: Yes Alcohol Use Standard Drinks/Week Comments Not Currently 0 (1 standard drink = 0.6 oz pur e alcohol) 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 Not on asher e 07/28/2022 Are you concerned about learning? Not on file 07/28/2022 No 07/28/2022 No 07/28/2022 Digital Access Answer Date Recorded No 08/28/2022 No 08/28/2022 Reliable internet access at home? Not on file 08/28/2022 Device with a working camera? Not on file Intimate Partner Violence Answer Date R ecorded Are you denied basic needs s uch as food, clothing, or medical care? No 09/01/2023 In the past 12 months have y ou been in a relationship with a person who hurts, threatens, or tries to control you? No 09/01/2023 Are you denied basic needs s uch as food, clothing, or medical care? No 09/01/2023 In the past 12 months have y ou been in a relationship with a person who hurts, threatens, or tries to control you? No 09/01/2023 Comments No Sex and Gender Information Value Date Recorded Sex Assigned at Male 08/09/2017 12:42 PM EDT Legal Sex Female 7:19 AM EDT Gender Identity Transgender Female 01/03/2019 9: 47 AM EDT Sexual Orientation Straight 03/01/2019 3: 32 AM EST Last Filed Vital Signs Vital Sign Reading Time Taken Comments Blood Pressure 122/70 09/01/2023 7:44 AM EDT Pulse 55 09/01/2023 7:44 AM EDT Temperature 36 C (96.8 F) 09/01/2023 7:44 AM EDT Respiratory Rate 16 09/01/2023 7:44 AM EDT Oxygen Saturation 98% 09/01/2023 7:44 AM EDT Inhaled Oxygen Concentration - - Weight 81.6 kg (180 lb) 07/29/2023 5:00 PM EDT Height 180.3 cm (5' 11 ) 07/29/2023 5:00 PM EDT Body Mass Index 25.1 07/29/2023 5:00 PM EDT Plan of Treatment Health Maintenance Due Date Last Done Comments Adult Td,Tdap Booster 1976 DEPRESSION SCREENING 1988 SMOKING Hx and SMOKELESS TOBACCO SCREENING 1989 HEPATITIS C SCREENING 1994 HIV ONE-TIME SCREENING (18-65 YEARS) 1994 HEPATITIS A VACCINES (1 of 2 - Risk 2-dose series) 1995 PNEUMOCOCCAL VACCINES (0-49 years) (1 of 2 - PCV) 1995 PAP SMEAR 1997 MAMMOGRAM 2016 COLOGUARD 2021 COLONOSCOPY 2021 COLORECTAL CANCER SCREENING 2021 FIT TEST 2021 FOBT 2021 SIGMOIDOSCOPY 2021 VIRTUAL COLONOSCOPY 2021 LITHIUM LEVEL 07/27/2024 07/28/2023, 2 05/2022, 05/29/2022, Additional history exists TSH LEVEL 08/01/2024 08/02/2023, 04/0 07/2021, 04/08/2018 POTASSIUM LEVEL 08/31/2024 09/01/2023, 04/2 10/2023, 2023, Additional history exists CREATININE LEVEL 09/26/2024 09/27/2023, 04/2023, 07/28/2023, Additional history exists INFLUENZA VACCINE (#1) 2024 COVID-19 VACCINE ( season) 2024 SCREENING FOR DIABETES 09/26/2026 , 09/01/2023, 08/02/2023 LIPID PANEL 08/01/2028 08/02/2023 HIB VACCINES Aged Out No longer eligi ble based on patient's age to complete this topic MENINGOCOCCAL VACCINES (ACWY) Aged Out No longer eligible based on patient's age to complete this topic MENINGOCOCCAL VACCINES (B) Aged Out N o longer eligible based on patient's age to complete this topic Medical Devices Not on file Procedures Procedure Name Priority Date/Time Associated Diagnosis Comments BASIC METABOLIC PANEL (BMP) STAT 09/01/2023 2:54 AM EDT LIPID PANEL Routine 08/02/2023 10:12 AM EDT TSH WITH REFLEX Routine 08/02/2023 10:12 AM EDT LITHIUM LEVEL Routine 07/28/2023 11:54 PM EDT from Last 3 Months or Most Recently Relevant to Health Maintenance Results * (ABNORMAL) Basic metabolic panel (09/01/2023 2:54 AM EDT) SODIUM 135 133 - 146 mmol/L [facility] CHLORIDE 100 96 - 108 mmol/L [facility] POTASSIUM 3.8 3.3 - 5.1 mmol/L [facility] CO2 23 21 - 35 mmol/L [facility] BUN 20(H) 6 - 19 mg/dL [facility] CREATININE 0.60 0.5 - 1.5 mg/dL [facility] GLUCOSE 85 70 - 99 mg/dL [facility] CALCIUM 8.7 8.4 - 10.3 mg/dL [facility] EGFR 111 >59 mL/min/1.7 3m2 [facility] Comment:Estimated glomerular filtration rate calculated using the CKD-EPI refit equation. ANION GAP 16 10 - 20 mmol/L [facility] Blood 09/01/2023 2:54 AM EDT 09/01/2023 2:58 AM EDT us Shawn Villa MD LAB BLOOD BKR ORDERABLES Fi nal Result Performing Organization Address City/State/[facility] Co de Phone Number [address] [address] * TSH with reflex (08/02/2023 10:12 AM EDT) TSH 3.20 0.27 - 4.20 uIU/mL [facility] Blood 08/02/2023 10:1 2 AM EDT 08/02/2023 10:26 AM EDT us Goldy Ventura MD LAB BLOOD BKR ORDERABLES F inal Result Performing Organization Address City/State/[facility] Co de Phone Number [address] [address] * (ABNORMAL) Lipid panel (08/02/2023 10:12 AM EDT) HDL 57 mg/dL [facility] Comment: Interpretation <40 mg/dL: Low HDL cholesterol (major risk factor for CHD) Greater than or equal to 60 mg/dL: High HDL cholesterol ( negative risk factor for CHD) HDL - cholesterol is affected by a number of factors, e.g. smoking, excerise, hormones, sex and age. CHOLESTEROL 176 0 - 240 mg/dL [facility] TRIGLYCERIDES 88 30 - 160 mg/dL [facility] LDL 101 50 - 129 mg/dL [facility] Comment: LDL levels in terms of risk for coronary heart disease: <100 mg/dL: Optimal 100-129 mg/dL: Near or above optimal 130-159 mg/dL: Borderline high 160-189 mg/dL: High >190 mg/dL: Very High CARDIAC RISK RATIO 3.1(L) 3.3 - 4.4 C [facility] Blood 08/02/2023 10:1 2 AM EDT 08/02/2023 10:27 AM EDT us Goldy Ventura MD LAB BLOOD BKR ORDERABLES F inal Result Performing Organization Address [facility] Co de Phone Number [address] [address] * (ABNORMAL) [place] level (07/28/2023 11:54 PM EDT) LITHIUM 0.24(L) 0.5 - 1.00 mmol/L [facility] 07/28/2023 11:5 4 PM EDT 07/29/2023 12:03 AM EDT us Alannah Melvin PA-C LAB BLOOD BKR ORDERAB LES Final Result Performing Organization Address [facility] Co de Phone Number [address] [address] from Last 3 Months or Most Recently Relevant to Health Maintenance [place] [address] [place] [address] [facility] [employer] [place] [address] [place] [address] [address] [place] [address] [place] [address] [employer] GENERIC COMMERCIAL Member Subscriber Plan / Payer ( fective 2023-) Name:Ashley Anton Relation to Subscriber:Self Name:Ashley Anton Payer ID:Not on file Group ID:Not on file Type:Indemnity Address: ATTN: Claims [address] [facility] [place] [id number] GENERIC COMMERCIAL GENERIC COMMERCIAL Advance Directives For more information, please contact: [phone] (9AM - 5PM [facility], Sunday-Sunday) * Full Code (Latest Code Status on File) Date Activated Date Inactivated Comments 07/30/2023 1:47 PM Question Answer Comments Code Status Confirmed With: Patient * Full Code Date Activated Date Inactivated Comments 10/13/2020 5:45 PM 07/30/2023 1:47 PM Question Answer Comments Code Status Confirmed With: Patient * Full Code (Presumed) Date Activated Date Inactivated Comments 01/03/2019 1:35 PM 01/04/2019 2:50 PM * Full Code (Presumed) Date Activated Date Inactivated Comments 04/06/2018 5:28 PM 04/10/2018 1:54 PM Care Teams Yarding Supervisor Relationship Specialty Start Date End Date Pcp, Unknown PCP - General 10/08/22 Grace Kahn MD [address] [place] [address], [address] [place] [address] [email or web address] Insurance Assigned Provider 02/14/25 Additional Source Comments The information contained in this document represents components of the legal health record. It is not the complete legal health record.[facility]
--- OUTSIDE RECORDS SUMMARY | 2025-03-02 23:37 | XMS_ITS | Encounter Summary ---
Author Organization [facility] Address [address] [place] [address] Phone Care Team Providers Care Pony Roll Finisher Name Role Phone Provider, No Primary Care Provider Unavailabl e Encounter Details Date Type Department Care Team (Late st Contact Info) Description 02/09/2025 External Contact EXTERNAL LOCATION [address] [place] [phone] Luisxdelfino, Default Provider Social History Tobacco Use Types Packs/Day Years Used Date Smoking Tobacco: Every Day Cigarettes 1 20.8 Started: 05/14/2004 Smokeless Tobacco: Never Alcohol Use Standard Drinks/Week Comments Yes 0 (1 standard drink = 0.6 oz pur e alcohol) Drinks a lot daily Sex and Gender Information Value Date Recorded Sex Assigned at Male 02/17/2025 2:26 PM EST Legal Sex Female 8:17 PM EST Gender Identity Transgender Female 02/08/2025 9: 11 AM EST Sexual Orientation Not on file documented as of this encounter Miscellaneous Notes * HIXDELFINO Discharge Notification - Default Provider Vince - 02/09/2025 7:39 AM EST Emergency Discharge Alert Powered by [email or web address] Patient Name: WAGNER MONTEJO : [id number] Patient Patient MR#: [id number] Source Facility: [facility] AdmitDateTime: 2025-02-09 07:39:00 DischargeDateTime: 2025-02-09 17:37:00 Admit Reason Code: feeling suicidal AllergenTypeIDDescSeverityCodeReactionCodeIDDate No Allergy Found DiagnosisCodeDes K08.89Other specified disorders of teeth and supporting structures R45.851Suicidal ideations documented in this encounter Plan of Treatment Not on file documented as of this encounter Visit Diagnoses Not on filedocumented in this encounter Additional Health Concerns Infection Onset Date Last Indicated Resolved Time Respiratory Rule-Out 02/16/2025 02/16/2025 025 2:44 AM EST documented as of this encounter Care Teams Pony Roll Finisher Relationship Specialty Start Date End Date Provider, No PCP - General 12/01/24 documented as of this encounter
--- OUTSIDE RECORDS SUMMARY | 2025-03-02 23:37 | XMS_ITS | Clinical Summary ---
Author Organization [facility] Address [address] [place] [address] Care Team Providers Care Field Marketing Team Leader Name Role Phone Unavailable Primary Care Provider [...] 60 10/12/2022 8:10 AM EDT Temperature 36.6 C (97.9 F) 10/12/2022 8:10 AM EDT Respiratory Rate 18 10/12/2022 8:10 AM EDT Oxygen Saturation 99% 10/12/2022 8:10 AM EDT Inhaled Oxygen Concentration - - Weight 83.1 kg (183 lb 1.6 oz) 10/10/2022 12:20 AM EDT Height 180.3 cm (5' 11 ) 10/10/2022 12:20 AM EDT Body Mass Index 25.54 10/10/2022 12:20 AM EDT Plan of Treatment Not on file Advance Directives For more information, please contact: [phone] Documents on File Type Date Recorded Patient Stone Polisher Expl anation Advance Directive and Living Will [...]
--- OUTSIDE RECORDS SUMMARY | 2025-03-02 23:37 | XMS_ITS | Encounter Summary ---
Author Organization [facility] Address [address] [place] [address] Phone Care Team Providers Care Medical Geneticist Name Role Phone Provider, No Primary Care Provider Haroon e Encounter Details Date Type Department Care Team (Late st Contact Info) Description 09/17/2024 External Contact EXTERNAL LOCATION [address] [place] [phone] Vince, Rosa Provider Social History Tobacco Use Types Packs/Day [...] as of this encounter Miscellaneous Notes * VINCE Discharge Notification - Default Provider Vince - 09/17/2024 1:24 AM EDT Emergency Discharge Alert Powered by [email or web address] Patient Name: WAGNER MONTEJO : [id number] Patient Patient MR#: [id number] Source Facility: [facility] ATT-ClinicianName: DAMARI REYNAGACode: [id number]: NPI AdmitDateTime: 2024-09-17 01:24:00 DischargeDateTime: 2024-09-17 10:00:00 Admit Reason Description: Detox AllergenTypeIDDescSeverityCodeReactionCodeIDDate 1903ALOE [id number] 00:00:00 1020VITAMIN E (D-ALPHA TOCOPHEROL)[id number] 00:00:00 [id number] 00:00:00 [id number] 00:00:00 DiagnosisCodeDesc Z76.5Malingerer (conscious simulation) Discharge Disposition: Home or Self Care documented in this encounter Plan of Treatment Not on file documented as of this encounter Visit Diagnoses Not on filedocumented in this encounter Additional Health Concerns Infection Onset Date Last Indicated Resolved Time Respiratory Rule-Out 11/01/2024 11/01/2024 025 11:24 AM EDT Respiratory Rule-Out 01/10/2025 01/10/2025 025 7:46 PM EDT Respiratory Rule-Out 02/16/2025 02/16/2025 025 2:44 AM EST documented as of this encounter Care Teams Medical Geneticist Relationship Specialty Start Date End Date Provider, No PCP - General 12/01/24 documented as of this encounter
--- OUTSIDE RECORDS SUMMARY | 2025-03-02 23:37 | XMS_ITS | Clinical Summary ---
Author Organization [facility] Address [facility] [place] [address] Care Team Providers Care Qualitative Researcher Name Role Phone None Primary Care Provider Unavailabl e Allergies No known active allergies Social History Tobacco Use Types Packs/Day Years Used Date Smoking Tobacco: Every Day Cigarettes Smokeless Tobacco: Never Tobacco Cessation:Ready to Q uit: No; Counseling Given: Not Answered IPV Inpatient Questions Answer Date Recorded Does Anyone Try to Keep You From Having Contact with Others or Doing Things Outside Your Home? no 08/09/2024 Feels Threatened by Someone no 07/31 Feels Unsafe at Home or Work/School no 08/09/2024 Physical Signs of Abuse Present no 08/09/2024 Sex and Gender Information Value Date Recorded Sex Assigned at Not on file Legal Sex Male 7:04 AM EST Gender Identity Transgender Female 08/09/2024 7: 21 PM EDT Sexual Orientation Not on file Last Filed Vital Signs Vital Sign Reading Time Taken Comments Blood Pressure 122/73 08/09/2024 7:04 PM EDT Pulse 71 08/09/2024 7:04 PM EDT Temperature 36.1 C (97 F) 08/09/2024 7:04 PM EDT Respiratory Rate 20 08/09/2024 7:04 PM EDT Oxygen Saturation 98% 08/09/2024 7:04 PM EDT Inhaled Oxygen Concentration - - Weight 81.6 kg (180 lb) 08/09/2024 7:04 PM EDT Height 180.3 cm (5' 11 ) 08/09/2024 7:04 PM EDT Body Mass Index 25.1 08/09/2024 7:04 PM EDT Plan of Treatment Health Maintenance Due Date Last Done Comments CT Colonography 1976 Colonoscopy 1976 Colorectal Cancer Screening 1976 FIT DNA 1976 FIT 1976 Sigmoidoscopy (10 year) with FIT yearly 1976 Sigmoidoscopy 1976 HIV screen 1994 Hepatitis C Screening 1994 Lipid Screening 1994 Hepatitis B vaccine (0-59 yrs) and Risk (1) 1995 Pneumococcal Vaccine: At-Risk 5-49yrs (1 of 2 - PCV) 0 1995 Tetanus/Diphtheria/Pertussis Vaccines (1 - Tdap) 05/01 Covid-19 Vaccine (1 - season) 2024 Influenza (Flu) vaccine (1 o f 1 - Influenza standard series) 12/01/2024 Diabetes Screening (HgbA1C or Glucose) 08/10/2027 Procedures Procedure Name Priority Date/Time Associated Diagnosis Comments COMPREHENSIVE METABOLIC PANEL STAT 08/09/2024 7:45 PM EDT from Last 3 Months or Most Recently Relevant to Health Maintenance Results * Comprehensive metabolic panel (08/09/2024 7:45 PM EDT) Glucose 96 65 - 199 mg/dL 08/09/2024 8:11 PM EDT [facility] Comment:Glucose Concentratio n >=200 mg/dL plus symptoms is consistent with Diabetes Mellitus. Blood Urea Nitrogen 20 8 - 20 mg/dL 08/09/2024 8:11 PM EDT [facility] Creatinine 0.76 0.70 - 1.50 mg/dL 08/09/2024 8:11 PM EDT [facility] Sodium 141 135 - 145 mMol/L 08/09/2024 8:11 PM EDT [facility] Potassium 3.9 3.5 - 5.0 mMol/L 08/09/2024 8:11 PM EDT [facility] Chloride 103 98 - 107 mMol/L 08/09/2024 8:11 PM EDT [facility] Carbon Dioxide 25 22 - 31 mMol/L 08/09/2024 8:11 PM EDT [facility] Anion Gap 13 5 - 15 mMol/L 08/09/2024 8:11 PM [facility] Calcium 9.4 8.5 - 10.5 mg/dL 08/09/2024 8:11 PM [facility] Protein, Total 6.9 6.1 - 8.0 g/dL 08/09/2024 8:11 PM [facility] Albumin 4.2 3.2 - 5.2 g/dL 08/09/2024 8:11 PM [facility] Aspartate Aminotransferase 18 <=39 unit/L 08/09/2024 8:11 PM [facility] Alanine Aminotransferase 21 0 - 55 unit/L 08/09/2024 8:11 PM [facility] Alkaline Phosphatase 86 35 - 130 unit/L 08/09/2024 8:11 PM [facility] Bilirubin, Total 0.6 <=1.3 mg/dL 08/09/2024 8:11 PM [facility] Est Glomerular Filtration Rate - Male 111 mL/min/1. 73 m 08/09/2024 8:11 PM [facility] Comment: This patient's estimated GFR was calculated using the 2020 CKD-EPI equation. The estimated GFR can vary from the measured GFR by up to 30% in the absence of rapidly changing kidney function. Assessment of the estimated GFR is not appropriate when creatinine concentrations are rapidly changing. For clinical situations in which a more precise estimate of GFR is necessary, consider alternative methods of GFR estimation such as a 24-hour urine creatinine clearance. Assignment of CKD stage 1 - 5 for patients with an eGFR near the transition point between stages may be based on clinical assessment of muscle mass and symptoms in addition to eGFR. Link: eGFR Calculator [employer] Est Glomerular Filtration Rate - Female 97 mL/min/1. 73 m 08/09/2024 8:11 PM [facility] Comment: This patient's estimated GFR was calculated using the 2020 CKD-EPI equation. The estimated GFR can vary from the measured GFR by up to 30% in the absence of rapidly changing kidney function. Assessment of the estimated GFR is not appropriate when creatinine concentrations are rapidly changing. For clinical situations in which a more precise estimate of GFR is necessary, consider alternative methods of GFR estimation such as a 24-hour urine creatinine clearance. Assignment of CKD stage 1 - 5 for patients with an eGFR near the transition point between stages may be based on clinical assessment of muscle mass and symptoms in addition to eGFR. Link: eGFR Calculator [employer] Blood VENOUS BLOOD SPECIMEN / Unknown Venipuncture / Unknown 08/09/2024 7:45 PM EDT 08/09/2024 7:53 PM EDT us Chao Evans MD CHEMISTRY ORDERABLES Final R esult [facility] [address] [place] [address] from Last 3 Months or Most Recently Relevant to Health Maintenance Insurance MEDICAID [place] Care Teams Qualitative Researcher Relationship Specialty Start Date End Date None None PCP - General 08/09/24
--- OUTSIDE RECORDS SUMMARY | 2025-03-02 23:37 | XMS_ITS | Encounter Summary ---
Author Organization [facility] Address [address] [place] [address] Phone Care Team Providers Care Mat Worker Name Role Phone Provider, No Primary Care Provider Unavailabl e Encounter Details Date Type Department Care Team (Late st Contact Info) Description 02/12/2025 External Contact EXTERNAL LOCATION [address] [place] [phone] Vince, Rosa Provider Social History Tobacco [...] on file documented as of this encounter Functional Status * Calculated C-SSRS Risk Score (Lifetime/Recent) Answer Date of Assessment Author High Risk 02/15/2025 11:14 PM Marlen Wren RN * [place] Suicide Severity Rating Scale (Screener/Recent Self-Report) Question Answer Date of Assessment Author 1. Wish to be (Past 1 Month) Yes 02/15/2025 11:14 PM Marlen Guidry, EMERITA 2. Non-Specific Active Suicidal Thoughts (Past 1 Month) Yes 02/15/2025 11:14 PM Marlen Guidry RN 3. Active Suicidal Ideation with any Methods (Not Plan) Without Intent to Act (Past 1 Month) Yes 02/15/2025 11:14 PM Marlen Guidry, EMERITA 4. Active Suicidal Ideation with Some Intent to Act, Without Specific Plan (Past 1 Month) No 02/15/2025 11:14 PM Marlen Guidry RN 5. Active Suicidal Ideation with Specific Plan and Intent (Past 1 Month) No 02/15/2025 11:14 PM Marlen Guidry RN 6. Suicidal Behavior (Lifetime) Yes 02/15/2025 11:14 PM Marlen Guidry RN 6. Suicidal Behavior (3 Months) Yes 02/15/2025 11:14 PM Marlen Guidry RN documented as of this encounter Miscellaneous Notes * HIXNY Discharge Notification - Default Provider Vince - 02/12/2025 2:15 AM EST Emergency Discharge Alert Powered by [email or web address] Patient Name: WAGNER MONTEJO : [id number] Patient Patient MR#: [id number] Source Facility: [facility] ATT-ClinicianName: SHAKIR SIAACSCode: [id number]: AdmitDateTime: 2025-02-12 02:15:00 DischargeDateTime: 2025-02-12 08:17:00 Admit Reason Code: Suicidal AllergenTypeIDDescSeverityCodeReactionCodeIDDate No Allergy Found DiagnosisCodeDes R45.851Suicidal ideations documented in this encounter Plan of Treatment Not on file documented as of this encounter Visit Diagnoses Not on filedocumented in this encounter Additional Health Concerns Infection Onset Date Last Indicated Resolved Time Respiratory Rule-Out 02/16/2025 02/16/2025 025 2:44 AM EST documented as of this encounter Care Teams Mat Worker Relationship Specialty Start Date End Date Provider, No PCP - General 12/01/24 documented as of this encounter
--- OUTSIDE RECORDS SUMMARY | 2025-03-02 23:37 | XMS_ITS | Encounter Summary ---
Author Organization [facility], [place] Address [address] [place] [address] Phone Care Team Providers Care Mulcher Operator Name Role Phone Provider, No Primary Care Provider Unavailabl e Encounter Details Date Type Department Care Team (Late st Contact Info) Description 12/11/2024 External Contact EXTERNAL LOCATION [address] [place] [phone] Vince, Rosa Provider Social History Tobacco [...] Discharge Notification - Default Provider Vince - 12/11/2024 1:25 AM EDT Emergency Discharge Alert Powered by [email or web address] Patient Name: WAGNER MONTEJO : [id number] Patient Patient MR#: [id number] Source Facility: [facility] ADM-ClinicianName: UNKNOWN UNKNOWNCode: UNKNOWNAA: NPI ATT-ClinicianName: DAMARI REYNAGACode: [id number]: AdmitDateTime: 2024-12-11 01:25:00 DischargeDateTime: 2024-12-11 12:26:00 Admit Reason Code: Back Pain AllergenTypeIDDescSeverityCodeReactionCodeIDDate No Allergy Found DiagnosisCodeDnatividad medical center R45.851Suicidal ideations F32.ADepression, unspecified Electronically signed by Interface, [employer] Chef And Restaurant Owner In [email or web address] at 12/11/2024 12:28 PM EDT documented in this encounter Plan of Treatment Not on file documented as of this encounter Visit Diagnoses Not on filedocumented in this encounter Additional Health Concerns Infection Onset Date Last Indicated Resolved Time Respiratory Rule-Out 01/10/2025 01/10/2025 025 7:46 PM EDT Respiratory Rule-Out 02/16/2025 02/16/2025 025 2:44 AM EST documented as of this encounter Care Teams Mulcher Operator Relationship Specialty Start Date End Date Provider, No PCP - General 12/01/24 documented as of this encounter
--- OUTSIDE RECORDS SUMMARY | 2025-03-02 23:37 | XMS_ITS | Encounter Summary ---
Author Organization [facility] Address [address] [place] [address] Phone Care Team Providers Care Devops Solutions Architect Name Role Phone Provider, No Primary Care Provider Unavailabl e Encounter Details Date Type Department Care Team (Late st Contact Info) Description 01/13/2025 External Contact EXTERNAL LOCATION [address] [place] [phone] Vince, Rosa Provider Social History Tobacco [...] Discharge Notification - Default Provider Vince - 01/13/2025 12:35 AM EDT Emergency Discharge Alert Powered by [email or web address] Patient Name: WAGNER MONTEJO : [id number] Patient Patient MR#: [id number] Source Facility: [facility] ADM-ClinicianName: UNKNOWN UNKNOWNCode: UNKNOWNAA: NPI ATT-ClinicianName: DANIELA MANNINGCode: [id number]: AdmitDateTime: 2025-01-13 00:35:00 DischargeDateTime: 2025-01-13 11:12:00 Admit Reason Code: suicidal ideations AllergenTypeIDDescSeverityCodeReactionCodeIDDate No Allergy Found DiagnosisCodeDes R45.851Suicidal ideations documented in this encounter Plan of Treatment Not on file documented as of this encounter Visit Diagnoses Not on filedocumented in this encounter Additional Health Concerns Infection Onset Date Last Indicated Resolved Time Respiratory Rule-Out 02/16/2025 02/16/2025 025 2:44 AM EST documented as of this encounter Care Teams Devops Solutions Architect Relationship Specialty Start Date End Date Provider, No PCP - General 12/01/24 documented as of this encounter
--- OUTSIDE RECORDS SUMMARY | 2025-03-02 23:37 | XMS_ITS | Encounter Summary ---
Author Organization [facility] Address [address] [place] [address] Phone Care Team Providers Care Wet Pan Operator Name Role Phone Provider, No Primary Care Provider Unavailabl e Encounter Details Date Type Department Care Team (Late st Contact Info) Description 01/14/2025 External Contact EXTERNAL LOCATION [address] [place] [phone] Vince, Rosa Provider Social History Tobacco [...] Discharge Notification - Default Provider Vince - 01/14/2025 6:58 AM EDT Emergency Discharge Alert Powered by [email or web address] Patient Name: WAGNER MONETJO : [id number] Patient Patient MR#: [id number] Source Facility: [facility] ADM-ClinicianName: UNKNOWN UNKNOWNCode: UNKNOWNAA: NPI ATT-ClinicianName: UNKNOWN UNKNOWNCode: UNKNOWNAA: AdmitDateTime: 2025-01-14 06:58:00 DischargeDateTime: 2025-01-14 10:49:00 Admit Reason Code: SI AllergenTypeIDDescSeverityCodeReactionCodeIDDate No Allergy Found DiagnosisCodeDarrowhead regional medical center R45.851Suicidal ideations Electronically signed by Interface, Underground Mining Section Foreman In [employer] at 01/14/2025 10:54 AM EDT documented in this encounter Plan of Treatment Not on file documented as of this encounter Visit Diagnoses Not on filedocumented in this encounter Additional Health Concerns Infection Onset Date Last Indicated Resolved Time Respiratory Rule-Out 02/16/2025 02/16/2025 025 2:44 AM EST documented as of this encounter Care Teams Wet Pan Operator Relationship Specialty Start Date End Date Provider, No PCP - General 12/01/24 documented as of this encounter
--- OUTSIDE RECORDS SUMMARY | 2025-03-02 23:37 | XMS_ITS | Clinical Summary ---
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 ondansetron (Zofran) 4 MG tabletIndicati ons:Nausea and Vomiting Take 1 tablet (4 mg) by mouth every 8 (eight) hours if needed for nausea or vomiting for up to 15 doses. 15 tablet 05/22/19 25 Active Additional Information Patient not taking.Reported on 06/22/2024 ARIPiprazole (Abilify) 10 MG tablet Take 10 mg by mouth in the morning. Active haloperidol (Haldol) 10 MG tablet Take 10 mg by mouth daily at bedtime. 02/03/20 22 Active estrogens, conjugated, (Premarin) 25 MG injection Inject 5 mg intramuscularly as directed 1 (one) time per week. Active EPINEPHrine (Epipen) 0.3 MG/0.3ML injection syringe Inject 0.3 mL (0.3 mg) as directed 1 (one) time if needed for anaphylaxis for up to 1 dose. Inject into upper leg. Call 911 after use. 1 each 10/06/19 25 Active diphenhydrAMIN E (BENADryl) 25 MG capsule Take 1 capsule (25 mg) by mouth every 4 (four) hours if needed for itching for up to 8 doses. 8 capsule 10/06/19 25 Active OLANZapine (ZyPREXA) 2.5 MG tablet Take 1 tablet (2.5 mg) by mouth daily. 14 tablet 1 01/13/20 Active ibuprofen 400 MG tablet Take 1 tablet by mouth every 6 (six) hours if needed for pain. 07/05/19 25 Active clindamycin (Cleocin) 300 MG capsule Take 1 capsule (300 mg) by mouth in the morning and 1 capsule (300 mg) at noon and 1 capsule (300 mg) before bedtime. Do all this for 10 days. 30 capsule 02/07/20 025 ibuprofen 600 MG tablet Take 1 tablet (600 mg) by mouth every 8 (eight) hours if needed for mild pain for up to 10 days. 30 tablet 02/07/20 025 amoxicillin-cl avulanate (Augmentin) 875-125 MG tablet Take 1 tablet (875 mg) by mouth every 12 (twelve) hours for 7 days. 14 tablet 02/10/20 025 amoxicillin-cl avulanate (Augmentin) 875-125 MG tabletIndicati ons:Skin and Soft Tissue Infection Take 1 tablet (875 mg) by mouth every 12 (twelve) hours for 7 days. 14 tablet 02/18/20 025 Active Problems Problem Noted Date Diagnosed Date Dental abrasion 06/17/2024 Suicidal ideation 06/16/2024 Schizophrenia ([facility]) 06/16/2024 Cocaine abuse 10/10/2022 Resolved Problems Problem Noted Date Diagnosed Date Resolved Date Trauma and stressor-related disorder 08/02/2023 05/07/2024 Suicidal ideations 05/29/2022 Major depression, recurrent 10/11/2021 05/07/2024 Substance induced mood disorder ([facility]) 06/11/1905/07/2024 Affective psychosis, bipolar ([facility]) 01/03/2019 05/07/2024 Encounters Date Type Department Care Team Description 02/24/2025 10:47 AM EST - 02/24/2025 11:55 AM EST Emergency [facility] ADULT EMERGENCY DEPARTMENT [address] [place] [address] Ariane Marcus MD Depression, unspecified depression type (Primary Dx) Discharge Disposition: DISCHARGED TO HOME/ASSISTED LIVING/SELF CARE (ROUTINE DISCHARGE) 02/24/2025 Travel 02/21/2025 10:37 PM EST - 02/22/2025 5:55 AM [facility] ADULT EMERGENCY DEPARTMENT [address] [address] Reshma Hernandez MD Unhappiness (Primary Dx) Discharge Disposition: DISCHARGED TO HOME/ASSISTED LIVING/SELF CARE (ROUTINE DISCHARGE) 02/21/2025 Travel 02/17/2025 2:17 PM EST - 02/17/2025 3:08 PM [facility] ADULT EMERGENCY DEPARTMENT [address] [place], [place] [id number] Sherita Fontana MD Paronychia of finger of right hand (Primary Dx) Discharge Disposition: DISCHARGED TO HOME/ASSISTED LIVING/SELF CARE (ROUTINE DISCHARGE) 02/17/2025 Travel 02/16/2025 2:30 AM EST - 02/16/2025 11:59 PM [facility] ADULT EMERGENCY DEPARTMENT [address] [place] [address] 02/15/2025 11:12 PM EST - 02/16/2025 9:25 AM [facility] ADULT EMERGENCY DEPARTMENT [address] [place] [address] Almita Sierra DO Asher, Shellie, MD Suicidal ideation (Primary Dx) Discharge Disposition: DISCHARGED/TRANSFERRE D TO A PSYCHIATRIC HOSPITAL OR PSYCHIATRIC DISTINCT PART UNIT OF A HOSPITAL 02/12/2025 External Contact EXTERNAL LOCATION [address] [place] [address] Hixny, Default Provider 02/09/2025 External Contact EXTERNAL LOCATION [address] [place] [address] Hixny, Default Provider 02/09/2025 - 02/09/2025 2:18 AM [facility] ADULT EMERGENCY DEPARTMENT [address] [place] [phone] Fred Booth MD Sadness (Primary Dx); Dental infection Discharge Disposition: DISCHARGED TO HOME/ASSISTED LIVING/SELF CARE (ROUTINE DISCHARGE) 02/08/2025 7:40 AM EST - 02/08/2025 12:30 PM [facility] ADULT EMERGENCY DEPARTMENT [address] [place] [address] Goldy Logan MD Stimulant use disorder (Primary Dx); Behavioral and emotional disorders with onset usually occurring in childhood and adolescence Discharge Disposition: DISCHARGED TO HOME/ASSISTED LIVING/SELF CARE (ROUTINE DISCHARGE) 02/08/2025 Travel 02/06/2025 10:49 AM EST - 02/06/2025 11:52 AM [facility] ADULT EMERGENCY DEPARTMENT [address] [place] [address] Jerry Pompa MD Pain, dental (Primary Dx) Discharge Disposition: DISCHARGED TO HOME/ASSISTED LIVING/SELF CARE (ROUTINE DISCHARGE) 01/23/2025 11:29 PM EDT - 01/26/2025 12:30 PM EDT [facility] ADULT EMERGENCY DEPARTMENT [address] [place] [address] Almita Sierra DO Cordi, Heidi, MD Pinto, Dorcas, MD Gillespie, Geoffry, MD Waxman, Michael, MD Bracey, Alexander, MD Brodie, Amy Londono MD Cocaine use disorder, severe ([facility]) (Primary Dx); Substance use disorder Discharge Disposition: DISCHARGED TO HOME/ASSISTED LIVING/SELF CARE (ROUTINE DISCHARGE) 01/23/2025 Travel 01/14/2025 External Contact EXTERNAL LOCATION [address] [place] [phone] Hixny, Default Provider 01/13/2025 External Contact EXTERNAL LOCATION [address] [place] [phone] Hixny, Default Provider 01/12/2025 Travel 01/10/2025 4:50 AM EDT - 01/12/2025 11:50 AM EDT [facility] ADULT EMERGENCY DEPARTMENT [address] [place] [address] Grajny, Mansi, Almita Kitchen DO Aly, Iman, MD Palmieri, Timothy, MD Snyder, Howard, MD Chow, Yvonne, MD Hogan, Kathryn A, MD Suicidal ideations (Primary Dx) Discharge Disposition: DISCHARGED TO HOME/ASSISTED LIVING/SELF CARE (ROUTINE DISCHARGE) 01/04/2025 4:19 AM EDT - 01/04/2025 10:10 AM EDT [facility] ADULT EMERGENCY DEPARTMENT [address] [place] [address] Denisha Ribeiro MD Vines, Spenser, DO Suicidal ideation (Primary Dx) Discharge Disposition: DISCHARGED TO HOME/ASSISTED LIVING/SELF CARE (ROUTINE DISCHARGE) 12/28/2024 4:59 AM EDT - 12/28/2024 12:32 PM EDT [facility] ADULT EMERGENCY DEPARTMENT [address] [place] [address] Radha Mckoy MD Waldrop, Michael, MD Encounter for psychological evaluation (Primary Dx) Discharge Disposition: DISCHARGED TO HOME/ASSISTED LIVING/SELF CARE (ROUTINE DISCHARGE) 12/22/2024 1:37 AM EDT - 12/22/2024 6:36 AM EDT [facility] ADULT EMERGENCY DEPARTMENT [address] [place] [address] Hua Masterson MD Suicidal thoughts (Primary Dx) Discharge Disposition: DISCHARGED TO HOME/ASSISTED LIVING/SELF CARE (ROUTINE DISCHARGE) 12/11/2024 External Contact EXTERNAL LOCATION [address] [place] [phone] Vince, [facility] Provider 12/08/2024 5:33 AM EDT - 12/09/2024 10:00 AM EDT [facility] ADULT EMERGENCY DEPARTMENT [address] [place] [address] Denisha Ribeiro MD Cordi, Heidi, MD Noonan, Jessica, MD Zhang, Wen Rong, MD Thibodeau, Lorraine, MD Sadness (Primary Dx) Discharge Disposition: DISCHARGED TO HOME/ASSISTED LIVING/SELF CARE (ROUTINE DISCHARGE) 12/08/2024 Travel 12/07/2024 2:30 AM EDT - 12/07/2024 12:18 PM EDT Emergency [facility] ADULT EMERGENCY DEPARTMENT [address] [place] [address] Denisha Ribeiro MD Pauze, Denis, MD Unhappiness (Primary Dx) Discharge Disposition: DISCHARGED TO HOME/ASSISTED LIVING/SELF CARE (ROUTINE DISCHARGE) from Last 3 Months Social History Tobacco Use Types Packs/Day Years Used Date Smoking Tobacco: Every Day Cigarettes 1 20.8 Started: 05/14/2004 Smokeless Tobacco: Never Tobacco Cessation:Ready to Q uit: No; Counseling Given: No Alcohol Use Standard Drinks/Week Comments Yes 0 (1 standard drink = 0.6 oz pur e alcohol) Drinks a lot daily Sex and Gender Information Value Date Recorded Sex Assigned at Male 02/17/2025 2:26 PM EST Legal Sex Female 8:17 PM EST Gender Identity Transgender Female 02/08/2025 9: 11 AM EST Sexual Orientation Not on file Last Filed Vital Signs Vital Sign Reading Time Taken Comments Blood Pressure 116/64 02/24/2025 10:46 AM EST Pulse 72 02/24/2025 10:46 AM EST Temperature 37 C (98.6 F) 02/24/2025 10:46 AM EST Respiratory Rate 18 02/24/2025 10:46 AM EST Oxygen Saturation 97% 02/24/2025 10:46 AM EST Inhaled Oxygen Concentration - - Weight 81.6 kg (180 lb) 02/21/2025 10:34 PM EST Height 180.3 cm (5' 11 ) 02/21/2025 10:34 PM EST Body Mass Index 25.1 02/21/2025 10:34 PM EST Plan of Treatment Health Maintenance Due Date Last Done Comments CT Colonography 1976 Cologuard 1976 Colonoscopy 1976 Colorectal Cancer Screening 1976 FIT 1976 FOBT 1976 Sigmoidoscopy 1976 TD Vaccine (21+ Years) 1976 MMR Vaccines (1 of 1 - Stand lucero series) 1977 Hepatitis C Screening 1994 Hepatitis B Vaccines (1 of 3 - 19+ 3-dose series) 1995 Pneumococcal Vaccine: Pediat rics (0 to 5 Years) and At-Risk Patients (6 to 49 Years) (1 of 2 - PCV) 1995 Mammogram 2016 Influenza Vaccine (#1) 2024 Zoster Vaccines (1 of 2) 2026 Lipid Panel 06/22/2029 06/22/2024 RSV Vaccines (1 - 1-dose 75+ series) 2051 HIB Vaccines Aged Out No longer eligi ble based on patient's age to complete this topic HPV Vaccines Aged Out No longer eligi ble based on patient's age to complete this topic Hepatitis A Vaccines Aged Out No long er eligible based on patient's age to complete this topic IPV Vaccines Aged Out No longer eligi ble based on patient's age to complete this topic Meningococcal B Vaccine Aged Out No l onger eligible based on patient's age to complete this topic Meningococcal Vaccine Aged Out No maría charles eligible based on patient's age to complete this topic Rotavirus Vaccines Aged Out No longer eligible based on patient's age to complete this topic Procedures Procedure Name Priority Date/Time Associated Diagnosis Comments ECG 12 LEAD STAT 02/16/2025 2:30 AM EST POCT RAPID COVID 19 UNSOLICITED RESULTS Routine 02/16/2025 2:24 AM EST DRUG SCREEN PANEL, URINE STAT 02/16/2025 2:11 AM EST URINALYSIS WITH REFLEX TO URINE CULTURE STAT 02/16/2025 2:11 AM EST AUTOMATED DIFFERENTIAL STAT 2:08 AM EST COMPLETE BLOOD COUNT STAT 02/16/2025 2:08 AM EST SALICYLATE LEVEL STAT 02/16/2025 2:08 AM EST ACETAMINOPHEN LEVEL STAT 02/16/2025 2 :08 AM EST ETHANOL STAT 02/16/2025 2:08 AM EST COMPREHENSIVE METABOLIC PANEL STAT 02/16/2025 2:08 AM EST CBC AUTO DIFFERENTIAL STAT 02/16/2025 2:08 AM EST POCT RAPID COVID 19 UNSOLICITED RESULTS Routine 01/10/2025 7:26 PM EDT URINALYSIS WITH REFLEX TO URINE CULTURE STAT 01/10/2025 7:23 PM EDT DRUG SCREEN PANEL, URINE STAT 01/10/2025 7:23 PM EDT URINE CULTURE - [facility] STAT 01/10/2025 7:23 PM EDT AUTOMATED DIFFERENTIAL STAT 11:47 AM EDT COMPLETE BLOOD COUNT STAT 01/10/2025 11:47 AM EDT ACETAMINOPHEN LEVEL STAT 01/10/2025 1 1:47 AM EDT SALICYLATE LEVEL STAT 01/10/2025 11:4 7 AM EDT ETHANOL STAT 01/10/2025 11:47 AM EDT CBC AUTO DIFFERENTIAL STAT 01/10/2025 11:47 AM EDT COMPREHENSIVE METABOLIC PANEL STAT 01/10/2025 11:47 AM EDT URINALYSIS WITH REFLEX TO URINE CULTURE STAT 12/28/2024 8:28 AM EDT AUTOMATED DIFFERENTIAL STAT 7:24 AM EDT COMPLETE BLOOD COUNT STAT 12/08/2024 7:24 AM EDT SALICYLATE LEVEL STAT 12/08/2024 7:24 AM EDT ETHANOL STAT 12/08/2024 7:24 AM EDT ACETAMINOPHEN LEVEL STAT 12/08/2024 7 :24 AM EDT COMPREHENSIVE METABOLIC PANEL STAT 12/08/2024 7:24 AM EDT CBC AUTO DIFFERENTIAL STAT 12/08/2024 7:24 AM EDT LIPID PANEL WITH RFLX DIRECT LDL STAT 06/22/2024 8:05 PM EDT from Last 3 Months or Most Recently Relevant to Health Maintenance Results * ECG 12 lead (02/16/2025 2:30 AM EST) Pathologist [facility] Diagnosis Class Borderline Abnormal GE MUSE Ventricular Rate 61 BPM GE MUSE Atrial Rate 61 BPM GE MUSE DC Interval 174 ms GE MUSE QRS DURATION 110 ms GE MUSE QT Interval 444 ms GE MUSE QTC CALCULATION (BAZETT) 446 ms GE MUSE P Cameron 83 degrees GE MUSE R Cameron 77 degrees GE MUSE T Wave Cameron 67 degrees GE MUSE 02/16/2025 2:29 AM EST 02/17/2025 9:56 AM EST Impressions GE MUSE - 02/17/2025 9:56 AM EST NORMAL SINUS RHYTHM POSSIBLE LEFT ATRIAL ENLARGEMENT MINIMAL VOLTAGE CRITERIA FOR LVH, MAY BE NORMAL VARIANT ( [employer]avin product ) BORDERLINE ECG Confirmed by Ricardo Gomez ([id number]) on 02/17/2025 9:56:37 AM Narrative Procedure Note Ricardo Gomez MD PhD - 02/17/2025 IMPRESSION: NORMAL SINUS RHYTHM POSSIBLE LEFT ATRIAL ENLARGEMENT MINIMAL VOLTAGE CRITERIA FOR LVH, MAY BE NORMAL VARIANT ( [employer] product) BORDERLINE ECG Confirmed by Ricardo Gomez ([id number]) on 02/17/2025 9:56:37 AM us Trevor ZIMMERMAN ECG ORDERABLES Final Resu lt GE MUSE * Rapid Covid-19 (POC) (02/16/2025 2:24 AM EST) Only the most recent of2 resultswithin the time period is included. Pathologist [facility] Rapid Covid 19 Negative Negative, Invalid 02/16/2025 2:44 AM [facility] Comment:The [facility] ID NOW COVID-19 was designated to detect the causative agent of COVID-19. [employer] was granted Emergency Use Authorization (EUA) from the FDA to distribute this test kit. Negative results do not preclude SARS-CoV-2 infection and should not be used as the sole basis for patient management decisions. Swab Both anterior nares / Unknown 02/16/2025 2:24 AM EST 02/16/2025 2:44 AM EST [facility] LABORATORY - 02/16/2025 2:44 AM EST Performed at:[address] [place] [id number] Almita Sierra DO LAB POINT OF CARE T EST DOCKED DEVICE UNSOLICITED RESULTS Final Result [facility] [address] [place] [address], * (ABNORMAL) Drug Screen Panel, Urine (02/16/2025 2:11 AM EST) Only the most recent of2 resultswithin the time period is included. [facility] Amphetamines, Urine Negative Negative 02/16/2025 3:04 AM [facility] Comment: I-Negative THRESHOLD 500 NG/ML Barbiturates, Urine Negative Negative 02/16/2025 3:04 AM [facility] Comment: I-Negative THRESHOLD 200 NG/ML Cocaine Metabolite, Urine Positive(A) Negative 02/16/2025 3:04 AM [facility] Comment: I-Positive THRESHOLD 150 NG/ML PRESUMPTIVE POSITIVE BY SCREENING METHOD. THIS RESULT HAS NOT BEEN CONFIRMED BY A CONFIRMATORY TECHNIQUE. Opiates, Urine Negative Negative 02/16/2025 3:04 AM [facility] Comment: I-Negative THRESHOLD 200 NG/ML Benzodiazepines, Urine Negative Negative 02/16/2025 3:04 AM [facility] Comment: I-Negative THRESHOLD 200 NG/ML Methadone, Urine Negative Negative 02/17/20 3:04 AM EST [facility] Comment: I-Negative THRESHOLD 300 NG/ML Phencyclidine (PCP), Urine Negative Negative 02/16/2025 3:04 AM [facility] Comment: I-Negative THRESHOLD 25 NG/ML Cannabinoids, Urine Negative Negative 02/16/2025 3:04 AM [facility] Comment: I-Negative THRESHOLD 50 NG/ML Urine Urine specimen obtained by clean catch procedure / Unknown Non-blood Collection / Unknown 02/16/2025 2:11 AM EST 02/16/2025 2:25 AM EST us Trevor ZIMMERMAN LAB URINE ORDERABLES Final Result [facility] [address] [place] [address], [place] * Urinalysis With Reflex To Urine Culture (02/16/2025 2:11 AM EST) Only the most recent of3 resultswithin the time period is included. Color Yellow Yellow, Dark Yellow 02/16/2025 2:33 AM [facility] Clarity Clear Clear 02/16/2025 2:33 AM [facility] Leukocytes Negative Negative 02/16/2025 2:33 AM [facility] Nitrite Negative Negative 02/16/2025 2:33 AM [facility] Blood Negative Negative, NEG 02/16/2025 2:33 AM [facility] Glucose Negative Negative 02/16/2025 2:33 AM [facility] Ketones Negative Negative 02/16/2025 2:33 AM [facility] pH 6.0 5.0 - 8.0 pH 02/16/2025 2:33 AM [facility] Specific Wilson, UA 1.023 1.002 - 1.029 02/16/2025 2:33 AM [facility] Bilirubin Negative Negative, NEG 02/16/2025 2:33 AM [facility] Urobilinogen 0.2 0.2, 1.0 mg/dL 02/16/2025 2:33 AM [facility] Protein Negative Negative 02/16/2025 2:33 AM [facility] Urine Urine specimen obtained by clean catch procedure / Unknown Non-blood Collection / Unknown 02/16/2025 2:11 AM EST 02/16/2025 2:25 AM EST us Trevor ZIMMERMAN LAB URINE ORDERABLES Final Result [facility] [address] [place] [address], [place] * (ABNORMAL) Automated Differential (02/16/2025 2:08 AM EST) Only the most recent of3 resultswithin the time period is included. Neutrophils % 51.5 41.0 - 67.0 % 02/16/2025 3:08 AM [facility] Lymphocytes % 33.4 28.0 - 42.0 % 02/16/2025 3:08 AM [facility] Monocytes % 10.2(H) 4.0 - 9.0 % 02/16/2025 3:08 AM [facility] Eosinophils % 3.8 0.0 - 5.0 % 02/16/2025 3:08 AM [facility] Basophils % 0.8 0.0 - 1.0 % 02/16/2025 3:08 AM [facility] Immature Granulocytes % 0.3 0.0 - 1.0 % 02/16/2025 3:08 AM [facility] Absolute Neutrophils 5.12 1.60 - 6.20 10*3/uL 02/16/2025 3:08 AM [facility] Absolute Lymphocytes 3.33 1.10 - 3.90 10*3/uL 02/16/2025 3:08 AM [facility] Absolute Monocytes 1.02(H) 0.20 - 0.80 10*3/uL 02/16/2025 3:08 AM [facility] Absolute Eosinophils 0.38 0.00 - 0.50 10*3/uL 02/16/2025 3:08 AM [facility] Absolute Basophils 0.08 0.00 - 0.10 10*3/uL 02/16/2025 3:08 AM [facility] Absolute Immature Granulocytes 0.03 0.00 - 0.10 10*3/uL 02/16/2025 3:08 AM [facility] Blood Venous blood / Unknown Venipuncture / Unknown 02/16/2025 2:08 AM EST 02/16/2025 2:27 AM EST us Trevor ZIMMERMAN LAB BLOOD ORDERABLES Final Result [facility] [address] [place] [address], [place] * (ABNORMAL) Complete Blood Count (02/16/2025 2:08 AM EST) Only the most recent of3 resultswithin the time period is included. WBC 10.0(H) 4.0 - 9.3 10*3/uL 02/16/2025 3:08 AM [facility] Hemoglobin 13.9 11.0 - 16.7 g/dL 02/16/2025 3:08 AM [facility] Hematocrit 40.6 33.0 - 49.0 % 02/16/2025 3:08 AM [facility] RBC 4.56 4.00 - 5.70 10*6/uL 02/16/2025 3:08 AM [facility] MCV 89.0 82.3 - 93.2 fL 02/16/2025 3:08 AM [facility] MCH 30.5 27.5 - 32.2 pg 02/16/2025 3:08 AM [facility] MCHC 34.2 32.5 - 35.5 g/dL 02/16/2025 3:08 AM [facility] RDW 12.3 12.0 - 15.0 % 02/16/2025 3:08 AM [facility] Platelet Count 298 130 - 350 10*3/uL 02/16/2025 3:08 AM [facility] MPV 10.0 7.5 - 10.7 fL 02/16/2025 3:08 AM [facility] NRBC % 0.0 <=0.0 % 02/16/2025 3:08 AM [facility] Absolute NRBC 0.00 <=0.00 10*3/uL 02/16/2025 3:08 AM [facility] Blood Venous blood / Unknown Venipuncture / Unknown 02/16/2025 2:08 AM EST 02/16/2025 2:27 AM EST Trevor L Elizabeth PA LAB BLOOD ORDERABLES Final Result Performing Organization Address [facility]/ZIP Co de Phone Number [facility] [address] [place] [address], [place] * Ethanol (02/16/2025 2:08 AM EST) Only the most recent of3 resultswithin the time period is included. Ethanol <10 <=10 mg/dL 02/16/2025 3:35 AM [facility] Comment: I-Result < dynamic range M-Verified value by repeat analysis > = 50 mg/dl (legally impaired) >= 80 mg/dl (legally intoxicated) Blood Venous blood / Unknown Venipuncture / Unknown 02/16/2025 2:08 AM EST 02/16/2025 2:26 AM EST Trevor L Elizabeth PA LAB BLOOD ORDERABLES Final Result Performing Organization Address [facility] Co de Phone Number [facility] [address] [place] [address], [place] * (ABNORMAL) Acetaminophen Level (02/16/2025 2:08 AM EST) Only the most recent of3 resultswithin the time period is included. Acetaminophen 0.3(L) Therapeutic Range: 10-30 ug/mL ug/mL 02/16/2025 3:35 AM [facility] Comment: Toxic: Greater than 150 ug/mL at 4 hours after ingestion or half-life greater than 4 hours. Blood Venous blood / Unknown Venipuncture / Unknown 02/16/2025 2:08 AM EST 02/16/2025 2:26 AM EST Trevor Johnson SC LAB BLOOD ORDERABLES Final Result Performing Organization Address [facility] de Phone Number [facility] [address] [place] [address], [place] * Salicylate (02/16/2025 2:08 AM EST) Only the most recent of3 resultswithin the time period is included. Salicylate <1.5 Therapeutic Range: 2-30 mg/dL mg/dL 02/16/2025 3:35 AM [facility] Comment: I-Result < dynamic range M-Verified value by repeat analysis Therapeutic: Analgesia: Up to 20 mg/dl Antipyresis: Up to 20 mg/dl Anti-inflammatory: Up to 30 mg/dl Toxic: >30.0 mg/dl Blood Venous blood / Unknown Venipuncture / Unknown 02/16/2025 2:08 AM EST 02/16/2025 2:26 AM EST Trevor ZIMMERMAN LAB BLOOD ORDERABLES Final Result Performing Organization Address [facility] de Phone Number [facility] [address] [place] [address], [place] * (ABNORMAL) Comprehensive Metabolic Panel (02/16/2025 2:08 AM EST) Only the most recent of3 resultswithin the time period is included. Sodium 144 135 - 145 mmol/L 02/16/2025 3:13 AM [facility] Potassium 3.4 3.4 - 5.2 mmol/L 02/16/2025 3:13 AM [facility] Chloride 106 99 - 109 mmol/L 02/16/2025 3:13 AM [facility] Carbon Dioxide 31(H) 21 - 30 mmol/L 02/16/2025 3:13 AM [facility] Comment: High LDH can falsely elevate CO2 results. If elevated LDH levels are clinically suspected, interpret CO2 with caution. Blood Urea Nitrogen (BUN) 23(H) 7 - 22 mg/dL 02/16/2025 3:13 AM [facility] Creatinine 0.85 0.60 - 1.30 mg/dL 02/16/2025 3:13 AM [facility] Glucose 142(H) 65 - 99 mg/dL 02/16/2025 3:13 AM [facility] Calcium 9.0 8.6 - 10.3 mg/dL 02/16/2025 3:13 AM [facility] Anion Gap 7 5 - 15 mmol/L 02/16/2025 3:13 AM [facility] eGFR 85 >=60 mL/min/1. 73m*2 02/16/2025 3:13 AM [facility] Comment: Calculation based on the Chronic Kidney Disease Epidemiology Collaboration (CKD- EPI) equation refit without adjustment for race. *This eGRF calculation is based on the 0864-[id number] creatinine equations for adults designed to estimate glomerular filtration rate (eGFR) without race adjustment factors. *This eGFR results are indexed to standard body surface area (BSA) 1.73 M(2). *eGFR results should only be used for adult patients >=18 years old. *Use of nonindexed eGFR values (mL/min) should be considered for drug dosing decisions. Total Protein 6.4 6.0 - 8.0 g/dL 02/16/2025 3:13 AM [facility] Albumin 3.9 3.5 - 5.2 g/dL 02/16/2025 3:13 AM [facility] Globulin, Total 2.5 g/dL 3:13 AM [facility] A/G Ratio 1.6 02/16/2025 3:13 AM [facility] Bilirubin, Total 0.5 0.1 - 1.2 mg/dL 02/16/2025 3:13 AM [facility] Alanine Aminotransferase (ALT) 15 7 - 52 U/L 02/16/2025 3:13 AM [facility] Aspartate Aminotransferase (AST) 20 5 - 45 U/L 02/16/2025 3:13 AM EST [facility] Alkaline Phosphatase 78 34 - 104 U/L 02/16/2025 3:13 AM [facility] Blood Venous blood / Unknown Venipuncture / Unknown 02/16/2025 2:08 AM EST 02/16/2025 2:26 AM EST us Trevor ZIMMERMAN LAB BLOOD ORDERABLES Final Result Performing Organization Address City/[facility]/ZIP Co de Phone Number [facility] [address] [place] [address], [place] * (ABNORMAL) Urine Culture - [facility] (01/10/2025 7:23 PM EDT) Urine Culture 10,000 CFU/mL Streptococcus mitis group(A) 01/12/2025 8:03 PM EDT [facility] Comment:Along with Urine Culture <10,000 colonies/ml. Insignificant colony count. No further workup. 01/12/2025 8:03 PM EDT [facility] Urine Urine specimen obtained by clean catch procedure / Unknown Non-blood Collection / Unknown 01/10/2025 7:23 PM EDT 01/10/2025 7:28 PM EDT Narrative [facility] - 01/12/2025 8:03 PM EDT The performance characteristics of the Microbial Identification methods used were determined by the Microbiology Laboratory at the [facility]. They have not been cleared or approved by the U.S. Food and Drug Administration. us Mansi Wills MD LAB MICROBIOLOGY - GENERAL ORD ERABLES Final Result [facility] [address] [place] [address], [place] * Lipid Panel with RFLX Direct LDL - [facility] (06/22/2024 8:05 PM EDT) Cholesterol 143 mg/dL 06/22/2024 8:26 PM EDT [facility] Comment: DESIRABLE <200 mg/dL BORDER LINE 200-239 mg/dL HIGH RISK >240 mg/dL Triglycerides 72 mg/dL 06/22/2024 8:26 PM EDT [facility] Comment: DESIRABLE <150 mg/dL BORDER LINE 150-199 mg/dL HIGH RISK >200 mg/dL HDL Cholesterol 50.0 mg/dL 8:26 PM EDT [facility] Comment: DESIRABLE >65 mg/dL BORDERLINE 45-65 mg/dL HIGH RISK <45 mg/dL LDL Calculated 79 <=100 mg/dL 06/22/2024 8:26 PM EDT [facility] VLDL CHOLESTEROL 14.4 5 - 40 mg/dL 06/22/2024 8:26 PM EDT [facility] CHOL/HDL RATIO 2.9 0.0 - 5.0 06/22/2024 8:26 PM EDT [facility] Blood Venous blood / Unknown Venipuncture / Unknown 06/22/2024 8:05 PM EDT 06/22/2024 8:08 PM EDT us Felice Bonilla MD LAB BLOOD ORDERABLES Final Re sult [facility] [address] [place] [address] from Last 3 Months or Most Recently Relevant to Health Maintenance Insurance [employer] Member Subscriber Plan / Payer (Ef fective 2024-Present) Name:Ashley Anton Member ID:Not on file Relation to Subscriber:Self Name:Desean Ashley Hyman Subscriber ID:Not on file Payer ID:[id number] Group ID:Not on file Type:Not on file [address] [address] [place] [address] Advance Directives For more information, please contact: [phone] (Available ) * Resuscitation Status (Latest Code Status on File) Date Activated Date Inactivated Comments 06/16/2024 3:06 PM 06/17/2024 1:03 PM Question Answer Comments If no pulse and/or not breathing: Attempt CPR If pulse and breathing present: Intubati on and fci mechanical ventilation 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
--- NOTE | 2025-03-02 23:39 | ED.GENADULT ---
HPI - General Adult General Chief complaint: Psychiatric Symptoms Stated complaint: SI Time Seen by Provider: 03/02/25 23:24 Source: patient Limitations: no limitations History of Present Illness ED Provider: Vani Dykes PA-C HPI narrative: 49-year-old transgender male to female patient with a history of personality disorder , bipolar disorder presenting with SI. Patient states she has a plan to ?cut her wrists?. Related Data Home Medications ?Medication ?Instructions ?Recorded ?Confirmed No Known Home Meds 08/21/24 03/03/25 Allergies Allergy/AdvReac Type Severity Reaction Status Date / Time nicotine (From NICODERM CQ) Allergy Mild SHORTNESS Verified 03/02/25 23:18 OF BREATH ketchup (KETCHUP) Allergy Unknown RASH Verified 03/02/25 23:18 onion (ONION) Allergy Unknown RASH Verified 03/02/25 23:18 tomato (TOMATO) Allergy Unknown RASH Verified 03/02/25 23:18 Review of Systems Review of Systems: Yes all other systems are reviewed and are negative Constitutional: Constitutional: Denies fatigue and Denies fever(s) Cardiovascular: Cardiovascular: Denies chest pain and Denies dyspnea Respiratory: Respiratory: Denies dyspnea Gastrointestinal: Gastrointestinal: Denies abdominal pain Endocrine: Endocrine: Denies fatigue PMFSH Past Medical History Attestation statement: The following information was validated with the patient. Medical History Cocaine abuse Transgender Personality disorder Bipolar 1 disorder Social History Social History Household Members: Unknown / Unable to assess Housing: Unknown / Unable to assess Alcohol intake: current Alcohol intake frequency: does not drink Alcohol type: hard liquor Patient Tobacco Use Status: Never used Tobacco Smoked in Last 30 Days: Yes Patient Interested in Nicotine Replacement: No Use of substances other than those prescribed or required for medical reasons: Yes Substance Use Type: Heroin and Opiates Advance Directives: No Advance Directives Information Provided: Yes Recently lost weight without trying: No How much weight loss: Unsure Eating poorly because of decreased appetite: No Nutrition screen score: 2 Nutrition Risks: No Nutritional Risk Patient : No : No Poor oral hygiene: No service: No Sexual orientation: Lesbian/Pichardo/Homosexual Physical Exam ED Vital Signs: Vital Signs - 24 hr 03/02/25 23:18 03/03/25 00:34 03/03/25 06:38 Temperature 98.1 F 98.1 F 97.7 F Pulse Rate 77 77 58 Respiratory Rate 16 16 20 Blood Pressure 122/61 122/61 103/60 Pulse Oximetry 96 96 96 Oxygen Delivery Method Room Air Room Air Room Air BMI result Body Mass Index 25.1 Const Other: Alert Orientation/consciousness: patient oriented x3 Resp Effort & Inspection: normal respiratory effort Cardio Other: Normal peripheral perfusion Skin Other: Warm dry no rash Neuro General: patient oriented x3, gait normal, no focal motor deficits and CN's II-XI intact bilaterally Psych Other: Cooperative Course Reevaluation(s) Reevaluation #1: Time: 05:37 Date: 03/03/25 Provider: ELSIE Lott Patient in physician observation for psychiatric evaluation.? No acute events reported overnight. No current complaints. VS stable.? Patient is in bed search status/pending CARE team evaluation. Will continue to monitor. Medications Administered Generic Name Dose Route Start Last Admin Trade Name Freq PRN Reason Stop Dose Admin Acetaminophen 650 mg 03/03/25 13:08 03/03/25 13:18 Acetaminophen 325 Mg Tablet PO 650 mg Q6H PRN Administration Headache/Pain, Scale 1-10 Medical Decision Making Medical Decision Making MDM Narrative: 49-year-old transgender male to female patient with a history of personality disorder , bipolar disorder presenting with SI. Patient states she has a plan to ?cut her wrists?. Problem: Psychiatric illness History: Per patient I have considered the following differential diagnoses: SI, HI, decompensated psychiatric illness, drug/alcohol intoxication Plan: Screening labs including serum ethanol and drug screen we will be obtained, the patient will be referred to the care team. I have independently reviewed the following tests: Labs: Leukocytosis noted, not anemic, no electrolyte abnormality, U tox positive for cocaine, ethanol less than 10 Differential Diagnosis Differential Diagnoses: The differential diagnosis associated with the presentation includes See MDM Admission/Observation Consideration of admission/observation: Escalation of care including admission/observation considered Consult Healthcare Provider Management of the patient was discussed with: Behavioral Health Provider Care team Lab Data MDM Lab Attestation statement: I reviewed the patient's lab results. 03/02/25 23:54 03/02/25 23:54 Labs: Lab Results 03/02/25 03/02/25 Range/Units 23:41 23:54 WBC 13.9 H (4.8-10.8) X10*3/uL RBC 4.62 (4.20-5.50) X10*6/uL Hgb 14.3 (12.0-16.0) g/dl Hct 41.0 (37.0-47.0) % MCV 88.7 (80.0-98.0) fL MCH 31.0 (27.0-33.0) pg MCHC 34.9 (31.0-35.0) g/dl RDW 12.5 (11.0-16.0) % Plt Count 251 (160-400) X10*3/uL MPV 10.1 (9.4-12.3) fL Immature Gran % (Auto) 0.4 (0.0-0.4) % Neut % (Auto) 71.8 (45-73) % Lymph % (Auto) 19.8 L (20-40) % [place] % (Auto) 7.0 (2-11) % Eos % (Auto) 0.4 (0-4) % Baso % (Auto) 0.6 (0-2) % Lymph # (Auto) 2.8 (1.2-4.9) X10*3/uL [place] # (Auto) 1.0 (0.1-1.2) X10*3/uL Eos # (Auto) 0.1 (0.0-0.4) X10*3/uL Baso # (Auto) 0.1 (0.0-0.2) X10*3/uL Abs Immat Gran (auto) 0.06 H (0.00-0.03) X10*3/uL Absolute Neuts (auto) 10.0 H (2.0-8.3) x10*3/uL Absolute Nucleated RBC 0.000 (0.0-0.012) X10*3/uL Nucleated RBC % (auto) 0.0 (0.0-0.2) /100WBC Sodium 139 (135-145) mmol/L Potassium 3.9 (3.3-5.1) mmol/L Chloride 103 (96-108) mmol/L Carbon Dioxide 27 (22-29) mmol/L Anion Gap 13 (12-20) BUN 21 H (9-16) mg/dL Creatinine 0.68 (0.5-1.4) mg/dL Estim Creat Clear Calc 113.1 Estimated GFR > 60 Random Glucose 94 (60-115) mg/dL Calcium 9.0 (8.4-10.2) mg/dL Total Bilirubin 0.8 (0.0-1.0) mg/dL AST 34 H (5-31) U/L ALT 36 H (0-31) U/L Alkaline Phosphatase 77 (39-117) U/L Total Protein 7.0 (6.5-8.0) g/dL Albumin 4.3 (3.5-5.0) g/dL Urine Color Yellow Urine Appearance Clear Urine pH 6.5 (5.0-9.0) Ur Specific Spade 1.025 (1.005-1.025) Urine Protein Negative (Neg-Trace) mg/dL Urine Glucose (UA) Negative (Negative) mg/dL Urine Ketones Negative (Negative) mg/dL Urine Blood Negative (Negative) Urine Nitrite Negative (Negative) Ur Leukocyte Esterase Negative (Negative) Urine RBC 0-2 (0-2) /HPF Urine WBC 0-5 (0-5) /HPF Ur Squamous Epith Cells 0-2 (0-2) /HPF Urine Bacteria None Seen (None Seen) Hyaline Casts 0-2 (0-2) /LPF Salicylates < 5.0 L (15-30) mg/dL Urine Opiates Screen Not Detected (Not Detect) Ur Buprenorphine Scrn Not Detected (Not Detect) ng/mL Ur Oxycodone Screen Not Detected (Not Detect) ng/mL Urine Methadone Screen Not Detected (Not Detect) ng/mL Urine Fentanyl Screen Not Detected (Not Detect) Acetaminophen < 3 (<30) mcg/mL Ur Barbiturates Screen Not Detected (Not Detect) Ur Phencyclidine Scrn Not Detected (Not Detect) Ur Amphetamines Screen Not Detected (Not Detect) U Benzodiazepines Scrn Not Detected (Not Detect) Urine Cocaine Screen POSITIVE H (Not Detect) U Marijuana (THC) Screen Not Detected (Not Detect) Ethyl Alcohol < 10 mg/dL Discharge Plan Discharge Clinical Impression: Suicidal ideation Patient Disposition: Admitted As Inpatient Interventions: Admission Worksheet (ED) Last Done: 03/03/25 14:58 Discharge Date/Time: 03/03/25 16:25
[2025-03-03 00:02] LABS: Appearance Urine Clear; Glucose Urine UA Negative (Negative); PH 6.5 (5.0-9.0); Specific Gravity - Urine 1.025 (1.005-1.025)
[2025-03-03 00:07] LABS: MANUAL DIFF FLAG NO
[2025-03-03 00:07] LABS: Cannabinoid Screen Urine Not Detected (Not Detect)
[2025-03-03 00:09] LABS: Hematocrit 41.0 % (37.0-47.0); Hemoglobin 14.3 g/dl (12.0-16.0); Imm Gran Abs Auto 0.06 X10*3/uL (0.00-0.03); Imm Gran Pct Auto 0.4 % (0.0-0.4); Lymphocytes Absolute Auto 2.8 X10*3/uL (1.2-4.9); Mean Corpuscular HGB Conc 34.9 g/dl (31.0-35.0); Mean Corpuscular Hemoglobin 31.0 pg (27.0-33.0); Mean Corpuscular Volume 88.7 fL (80.0-98.0); NRBC Abs Auto 0.000 X10*3/uL (0.0-0.012); NRBC Pct Auto 0.0 /100WBC (0.0-0.2); Platelet Count 251 X10*3/uL (160-400); Red Blood Count 4.62 X10*6/uL (4.20-5.50); White Blood Count 13.9 X10*3/uL (4.8-10.8)
[2025-03-03 00:28] LABS: Acetaminophen LAB < 3 mcg/mL (<30); Salicylate < 5.0 mg/dL (15-30)
[2025-03-03 00:34] VITALS: BP 122/61; PULSE 77; RESP 16; TEMP 36.7; O2SAT 96
[2025-03-03 00:34] LABS: Alanine Aminotransferase 36 U/L (0-31); Albumin Level 4.3 g/dL (3.5-5.0); Alkaline Phosphatase 77 U/L (39-117); Anion Gap 13 (12-20); Aspartate Amino Transferase 34 U/L (5-31); Blood Urea Nitrogen 21 mg/dL (9-16); Calcium 9.0 mg/dL (8.4-10.2); Carbon Dioxide 27 mmol/L (22-29); Chloride 103 mmol/L (96-108); Creatinine Clr Calc Pharmacy 113.1; Estimated Glomerular Filt Rate > 60; Potassium 3.9 mmol/L (3.3-5.1); Sodium 139 mmol/L (135-145); Total Protein 7.0 g/dL (6.5-8.0)
[2025-03-03 06:38] VITALS: BP 103/60; PULSE 58; RESP 20; TEMP 36.5; O2SAT 96
--- NOTE | 2025-03-03 10:13 | ECG_ITS ---
Test Reason : r/o prolonged qt Blood Pressure : */* mmHG Vent. Rate : 57 BPM Atrial Rate : 57 BPM P-R Int : 168 ms QRS Dur : 112 ms QT Int : 450 ms P-R-T Axes : 81 72 66 degrees QTcB Int : 438 ms Sinus bradycardia Minimal voltage criteria for LVH, may be normal variant ( Kavin product ) Borderline ECG When compared with ECG of 30-Jun-2024 10:14, No significant change was found Referred By: Wilfrid Ramirez Electronically Signed By: GRAHAM CARDOZO
--- NOTE | 2025-03-03 10:33 | PC.NURSE ---
Care assumed at 0700, she has been quiet and keeping to herself. She continues to endorse SI, She denies HI/AVH.
[2025-03-03 14:16] LABS: COVID-19 Test Negative (Negative); IDNOW Serial# 58CA691E
[2025-03-03 14:35] VITALS: BP 107/62; PULSE 64; RESP 18; TEMP 36.4; O2SAT 98
[2025-03-03 16:47] VITALS: BP 112/68; PULSE 66; RESP 16; O2SAT 97
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
--- NOTE | 2025-03-04 08:42 | HO.PM.IMCN ---
History of Present Illness Data of Consult Service Date: 03/04/25 Primary Care Provider: Unknown Physician HPI Reason for consult: Medical Consult 49-year-old transgender male to female patient with a past medical history of personality disorder, cocaine abuse, bipolar disorder, presented to the ED with suicide ideation with a plan to slit her wrists. In the ED workup included mild leukocytosis, no anemia, no electrolyte imbalances, U tox positive for cocaine, ethanol less than 10. Urinalysis negative for infection. On exam she denies any medical concerns. Review of Systems Review of Systems: Denies any shortness of breath, chest pain, headaches, dysuria, abdominal pain or discomfort, nausea, vomiting or diarrhea. Denies fever or chills. [facility] Medical History (Updated 03/04/25 @ 11:55 by Selvin Moss CNP) Cocaine abuse Transgender Personality disorder Bipolar 1 disorder Social History Household Members: Unknown / Unable to assess Housing: Unknown / Unable to assess Alcohol intake: current Alcohol intake frequency: does not drink Alcohol type: hard liquor Patient Tobacco Use Status: Never used Tobacco Smoked in Last 30 Days: Yes Patient Interested in Nicotine Replacement: No Use of substances other than those prescribed or required for medical reasons: Yes Substance Use Type: Heroin and Opiates Currently Displaying Signs/Symptoms of Drug Intoxication Withdrawal: No Advance Directives: No Advance Directives Information Provided: Yes Do you have thoughts of harming others: None Do you have a plan to hurt others: No Plan Recently lost weight without trying: No How much weight loss: Unsure Eating poorly because of decreased appetite: No Nutrition screen score: 2 Nutrition Risks: No Nutritional Risk Patient : No : No Poor oral hygiene: No service: No Sexual orientation: Lesbian/Pichardo/Homosexual Meds Allergies Allergy/AdvReac Type Severity Reaction Status Date / Time nicotine (From NICODERM CQ) Allergy Mild SHORTNESS Verified 03/02/25 23:18 OF BREATH ketchup (KETCHUP) Allergy Unknown RASH Verified 03/02/25 23:18 onion (ONION) Allergy Unknown RASH Verified 03/02/25 23:18 tomato (TOMATO) Allergy Unknown RASH Verified 03/02/25 23:18 Active Medications: Current Medications Acetaminophen (Acetaminophen 325 Mg Tablet) 650 mg PO Q6H PRN PRN Reason: Headache/Pain, Scale 1-10 Last Admin: 03/03/25 13:18 Dose: 650 mg Al Hydroxide/Mg Hydroxide (Magnesium Hydrox/Alum Hydrox 30 Ml Oral.Susp) 30 ml PO Q6H PRN PRN Reason: Heartburn/Nausea Hydroxyzine HCl (Hydroxyzine Hcl 25 Mg Tablet) 25 mg PO Q6H PRN PRN Reason: mild anxiety Magnesium Hydroxide (Milk Of Magnesia 30 Ml Oral.Susp) 30 ml PO DAILY PRN PRN Reason: Constipation Olanzapine (Olanzapine 5 Mg Tablet) 5 mg PO TID PRN PRN Reason: agitation Trazodone HCl (Trazodone Hcl 50 Mg Tablet) 50 mg PO BEDTIME MRX1 PRN PRN Reason: Insomnia Home Medications ?Medication ?Instructions ?Recorded ?Confirmed ?Last Taken ?Type aripiprazole 10 mg tablet (Abilify) 10 mg PO DAILY 03/04/25 03/04/25 Unknown History hydroxyzine HCl 50 mg PO BEDTIME 03/04/25 03/04/25 Unknown History trazodone 50 mg tablet 50 mg PO BEDTIME 03/04/25 03/04/25 Unknown History Physical Exam Vital Signs and Narrative: Vital Signs: Last Vital Signs Temp 97.6 F 03/03/25 14:35 Pulse 66 03/03/25 16:47 Resp 16 03/03/25 16:47 BP 112/68 03/03/25 16:47 Pulse Ox 97 03/03/25 16:47 O2 Del Method Room Air 03/03/25 16:47 BMI result Body Mass Index 25.1 Alert and oriented X3, calm and cooperative. Answers questions. Neuro: CN II-X11 intact, no deficits, visual acuity intact EYES: PERRLA, EOM intact ENT: Hearing intact, MMM Cardiac: S1 S2 RRR, No ectopy Pulmonary: lungs clear to auscultation, No increased WOB. Abdominal: BS active in all 4 quadrants, no guarding or tenderness MSK: Strength 5/5 upper and lower extremities : Deferred Extremities: No edema in lower extremities Psych: Mood stable, Quiet and cooperative. Skin: Warm and dry, Intact Results Labs 03/02/25 23:54 03/04/25 08:05 Labs: Laboratory Results - last 24 hr 03/03/25 13:48 COVID-19 ([facility]) Negative COVID-19 Clin Com See Note Assessment and Plan (1) Bipolar 1 disorder: Status: Acute Plan 49-year-old transgender male to female, with past medical history as listed below presented to the ED with suicidal ideation. Now admitted for inpatient stabilization. Cocaine abuse/personality disorder/bipolar 1 disorder/suicide ideation Treatment per psychiatric team Thank you for allowing me to participate in the care of this patient. Will follow with you, please notify medical provider with any changes in condition or concerns.
[2025-03-04 09:07] LABS: Alanine Aminotransferase 38 U/L (0-31); Albumin Level 4.0 g/dL (3.5-5.0); Alkaline Phosphatase 92 U/L (39-117); Anion Gap 11 (12-20); Aspartate Amino Transferase 39 U/L (5-31); Blood Urea Nitrogen 29 mg/dL (9-16); Calcium 9.0 mg/dL (8.4-10.2); Carbon Dioxide 26 mmol/L (22-29); Chloride 108 mmol/L (96-108); Cholesterol 174 mg/dL (<200); Creatinine Clr Calc Pharmacy 118.2; Estimated Glomerular Filt Rate > 60; HDL Cholesterol 55 mg/dL (>40); Potassium 4.7 mmol/L (3.3-5.1); Sodium 140 mmol/L (135-145); Total Protein 6.7 g/dL (6.5-8.0); Triglycerides 64 mg/dL (<150)
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
[2025-03-05 07:00] VITALS: BMI 23.9
--- NOTE | 2025-03-05 07:44 | PM.PSYDC ---
DS: Providers Provider Date of Service: 03/05/25 Date of admission: 03/03/25 13:08 Date of discharge: 03/05/25 Primary care physician: Unknown Physician Admitting clinician: Selvin Moss Attending physician on admission: Inder Houston Attending physician on discharge: Selvin Moss Discharging clinician: Selvin Moss DS: Diagnosis Discharge Diagnosis (1) Bipolar 1 disorder: Status: Acute (2) Personality disorder: Status: Acute (3) Suicidal ideation: Status: Acute (4) Cocaine abuse: Status: Acute DS: Medications Discharge Medications Home Medications: Previous Rx's ?Medication ?Instructions ?Recorded aripiprazole 5 mg tablet (Abilify) 5 mg PO DAILY #30 tabs 03/05/25 hydroxyzine HCl 25 mg tablet 25 mg PO Q6H PRN mild anxiety #30 03/05/25 tabs trazodone 50 mg tablet 50 mg PO BEDTIME MRX1 PRN Insomnia 03/05/25 #30 tabs Mental Status Exam Mental Status Exam Narrative: Appearance: Casually dressed, adequate hygiene, unkempt hair Behavior: Calm and cooperative throughout the interview. Eye contact is appropriate, and there are no signs of psychomotor agitation or retardation Speech: Normal volume and prosody Thought process: Logical and goal-directed Thought content: Future oriented no self-harming thoughts Mood: Euthymic Affect: Mood-congruent SI: Denies HI: Denies VH/AH: None Delusions: None Insight/judgment: Fair insight and judgment Memory/cog: Alert, oriented x 4. grossly intact to conversational testing Data Data Completed and Pending Completed studies during hospitalization [Text1]: 03/02/25 03/02/25 03/03/25 23:41 23:54 13:48 WBC 13.9 H RBC 4.62 Hgb 14.3 Hct 41.0 MCV 88.7 MCH 31.0 MCHC 34.9 RDW 12.5 Plt Count 251 MPV 10.1 Immature Gran % (Auto) 0.4 Neut % (Auto) 71.8 Lymph % (Auto) 19.8 L [place] % (Auto) 7.0 Eos % (Auto) 0.4 Baso % (Auto) 0.6 Lymph # (Auto) 2.8 [place] # (Auto) 1.0 Eos # (Auto) 0.1 Baso # (Auto) 0.1 Abs Immat Gran (auto) 0.06 H Absolute Neuts (auto) 10.0 H Absolute Nucleated RBC 0.000 Nucleated RBC % (auto) 0.0 Sodium 139 Potassium 3.9 Chloride 103 Carbon Dioxide 27 Anion Gap 13 BUN 21 H Creatinine 0.68 Estim Creat Clear Calc 113.1 Estimated GFR > 60 Random Glucose 94 Estimat Average Glucose Hemoglobin A1c % Calcium 9.0 Total Bilirubin 0.8 AST 34 H ALT 36 H Alkaline Phosphatase 77 Total Protein 7.0 Albumin 4.3 Triglycerides Cholesterol LDL Cholesterol, Calc HDL Cholesterol TSH Urine Color Yellow Urine Appearance Clear Urine pH 6.5 Ur Specific [place] 1.025 Urine Protein Negative Urine Glucose (UA) Negative Urine Ketones Negative Urine Blood Negative Urine Nitrite Negative Ur Leukocyte Esterase Negative Urine RBC 0-2 Urine WBC 0-5 Ur Squamous Epith Cells 0-2 Urine Bacteria None Seen Hyaline Casts 0-2 Salicylates < 5.0 L Urine Opiates Screen Not Detected Ur Buprenorphine Scrn Not Detected Ur Oxycodone Screen Not Detected Urine Methadone Screen Not Detected Urine Fentanyl Screen Not Detected Acetaminophen < 3 Ur Barbiturates Screen Not Detected Ur Phencyclidine Scrn Not Detected Ur Amphetamines Screen Not Detected U Benzodiazepines Scrn Not Detected Urine Cocaine Screen POSITIVE H U Marijuana (THC) Screen Not Detected Ethyl Alcohol < 10 COVID-19 ([place]) Negative COVID-19 Clin Com See Note 03/04/25 08:05 WBC RBC Hgb Hct MCV MCH MCHC RDW Plt Count MPV Immature Gran % (Auto) Neut % (Auto) Lymph % (Auto) [place] % (Auto) Eos % (Auto) Baso % (Auto) Lymph # (Auto) [place] # (Auto) Eos # (Auto) Baso # (Auto) Abs Immat Gran (auto) Absolute Neuts (auto) Absolute Nucleated RBC Nucleated RBC % (auto) Sodium 140 Potassium 4.7 D Chloride 108 Carbon Dioxide 26 Anion Gap 11 L BUN 29 H Creatinine 0.65 Estim Creat Clear Calc 118.2 Estimated GFR > 60 Random Glucose 113 Estimat Average Glucose 100 Hemoglobin A1c % 5.1 Calcium 9.0 Total Bilirubin 0.5 AST 39 H ALT 38 H Alkaline Phosphatase 92 Total Protein 6.7 Albumin 4.0 Triglycerides 64 Cholesterol 174 LDL Cholesterol, Calc 107 H HDL Cholesterol 55 TSH 1.10 Urine Color Urine Appearance Urine pH Ur Specific [place] Urine Protein Urine Glucose (UA) Urine Ketones Urine Blood Urine Nitrite Ur Leukocyte Esterase Urine RBC Urine WBC Ur Squamous Epith Cells Urine Bacteria Hyaline Casts Salicylates Urine Opiates Screen Ur Buprenorphine Scrn Ur Oxycodone Screen Urine Methadone Screen Urine Fentanyl Screen Acetaminophen Ur Barbiturates Screen Ur Phencyclidine Scrn Ur Amphetamines Screen U Benzodiazepines Scrn Urine Cocaine Screen U Marijuana (THC) Screen Ethyl Alcohol COVID-19 ([place]) COVID-19 Clin Com DS: Summary Hospital Course Hospital Course: 49-year-old assigned male at , now female, with history of bipolar 1 disorder, personality disorder, and cocaine use disorder presented to [facility] via ambulance with suicide ideation with a plan to cut her wrists. On interview with this provider, patient states that she thought that I was experiencing suicide thoughts, and therefore went to [facility] ED where he was transferred to [facility]. He notes that rather than suicide ideation, she may have been experiencing anxiety which she attributes to inadequate sleep. She states that I feel fine now, with no anxiety. She slept adequately in the past 2 days. She does not have suicide thoughts at this time. She was on Abilify and trazodone which he stopped taking 2 months ago. She has been on a wait list to establish with a psychiatrist, therapist, and PCP. She utilized emergency care for medication refills. She endorses mild depression at this time. She uses about 20-30 dollars worth of cocaine intranasally, every other week, to subdue her depression; however, she does not use cocaine while she is on her psychotropic medications; her last use was 3 days ago. She denies history of hypomanic or manic episodes. She denies HI or AVH. She denies alcohol use. Urine tox is positive for cocaine, BA less than 10. Her goal for this hospitalization is to get back on her medications and referred for community supports. She wants to be discharged home tomorrow. Formulation/Clinical reasoning: Abruptly stopping his medications 2 months ago and managing her symptoms with cocaine may have worsened the patient condition, leading to increase anxiety and depression, suicide thoughts, and poor sleep. The nurse called the pharmacy and verified Abilify 10 mg daily, trazodone 50 mg at bedtime and hydroxyzine 50 mg at bedtime they were prescribed in July 2024. Will start Abilify 5 mg daily. Continue current treatment regimen. Instructed on the risks, benefits, and potential adverse reactions of the medications. Verbalized understanding and agreed with the plan. 03/05: Patient found ambulating out of her room to the hallway. She states that she feels good and ready for discharge today. She notes that her sleep was adequate last night and she slept for 14 hours. She denies anxiety or depression. She denies SI/HI/AVH. She will be discharged today. Time spent discussing smoking cessation with patient: 3 to 10 minutes Status at Discharge Functional status at discharge: independent ambulation Overall status at discharge: patient is back to baseline Time Spent with Patient Time attestation: Total time managing care of this patient today _30___ minutes. Time spent: Less than 30 minutes Discharge Plan Discharge Anticipated Discharge Date/Time: 03/05/25 11:30 Patient Disposition: Home, Self-Care Discharge Diagnosis: Bipolar 1 disorder, personality disorder, cocaine abuse Referrals: [facility] [Other] - 1 Week Referral Note: *They have discharge and clinical documentation specialist, Almaz, who would be happy to assist you. They also offer insurance navigation and services once insurance activates. Physician,Donovan J [Primary Care Provider, Medical] - 1 Week Discharge Medications: New trazodone 50 mg Tablet 50 mg PO BEDTIME MRX1 PRN (Reason: Insomnia) Qty: 30 0RF hydroxyzine HCl 25 mg Tablet 25 mg PO Q6H PRN (Reason: mild anxiety) Qty: 30 0RF aripiprazole [Abilify] 5 mg Tablet 5 mg PO DAILY Qty: 30 0RF Discontinued aripiprazole [Abilify] 10 mg Tablet 10 mg PO DAILY trazodone 50 mg Tablet 50 mg PO BEDTIME hydroxyzine HCl 50 mg tablet 50 mg PO BEDTIME Discharge Orders: Discharge Order (Routine); Ordered 03/05/25 Ordered By: Selvin Moss Diet: Advance to usual diet Activity on Discharge: As tolerated Stand Alone Forms: Patient Portal Discharge page, Community Support Print Language: Turkish Care Plan Goals: Maintain mood and safe behaviors Take medications as prescribed Continue to pursue sobriety Practice coping skills Continue with outpatient providers and reach out to them as needed Health Concerns: Mood stability and behaviors Sobriety Plan of Treatment: Follow up with your PCP, psychiatric provider and other outpatient providers regarding above concerns Take medications as prescribed Assessment: Risk assessment at time of discharge:? Patient was interviewed prior to discharge and found to be fully oriented and without any SI or HI. Patient has improved insight and judgment and wants to continue treatment. Patient is not in imminent risk of harm to self or others and has a safety plan that includes presenting to the closest ER or calling 911 if feeling unsafe.? Patient has been observed closely by nursing and unit staff throughout admission; patient has not engaged in any behaviors that suggest dangerousness to self or others and has demonstrated appropriate behaviors and impulse control Discharge Date/Time: 03/05/25 11:15
[2025-03-05 08:00] VITALS: BP 120/63; PULSE 58; RESP 16; TEMP 36.7; O2SAT 98
== END 2025-03-05 11:15 | disposition home or self-care (01) | DRG 885 ==
LOC: HO.ED 03-03 12:18 → HO.PM5 03-03 13:55
PROVIDERS: Emergency Medicine; Admitting Provider Psychiatry & Neurology Psychiatry; Emergency Provider Emergency Medicine; Visit Provider Psychiatry & Neurology Psychiatry
DX: F31.9 Bipolar disorder, unspecified (principal); R45.851 Suicidal ideations; F14.10 Cocaine abuse, uncomplicated; F60.9 Personality disorder, unspecified; F64.0 Transsexualism; F17.210 Nicotine dependence, cigarettes, uncomplicated; Z71.6 Tobacco abuse counseling; Z20.822 Contact with and (suspected) exposure to COVID-19; Z79.899 Other long term (current) drug therapy
CPT/HCPCS: 36415; 80053; 80061; 80143; 80179; 80307; 81001; 83036; 84443; 85025; 87635; 93005; 99285; S9485

== ENCOUNTER → 2025-03-03 10:13 | Outpatient (BNV) | payer OTHER, SELFPAY | PROVIDERS: Admitting Provider Psychiatry & Neurology Psychiatry; Emergency Provider Emergency Medicine; Visit Provider Internal Medicine | DX: R00.1 Bradycardia, unspecified (principal) | CPT/HCPCS: 93010 ==

== ENCOUNTER → 2025-03-03 13:08 | Outpatient (BNV) | payer OTHER, SELFPAY | PROVIDERS: Admitting Provider Psychiatry & Neurology Psychiatry; Emergency Provider Emergency Medicine; Visit Provider Nurse Practitioner Family | DX: F31.9 Bipolar disorder, unspecified (principal); F60.9 Personality disorder, unspecified; F14.10 Cocaine abuse, uncomplicated; R45.851 Suicidal ideations | CPT/HCPCS: 90792; 99238 ==

== ENCOUNTER → 2025-03-03 13:08 | Outpatient (BNV) | payer OTHER, SELFPAY | PROVIDERS: Admitting Provider Psychiatry & Neurology Psychiatry; Emergency Provider Emergency Medicine; Visit Provider Nurse Practitioner Family | DX: F31.9 Bipolar disorder, unspecified (principal) | CPT/HCPCS: 99221 ==

== ENCOUNTER 2025-03-06 04:31 | Emergency (ER) | payer SELFPAY ==
[2025-03-06 04:32] VITALS: BP 121/68; PULSE 65; RESP 18; TEMP 36.5; O2SAT 98; BMI 25.1
--- OUTSIDE RECORDS SUMMARY | 2025-03-06 04:48 | XMS_ITS | Clinical Summary ---
Author Organization [facility] Address [address] [place] [address] Phone Care Team Providers Care Spray Drier Name Role Phone Provider, No Primary Care [...] Dental abrasion 06/17/2024 Suicidal ideation 06/16/2024 Schizophrenia ([facility]) 06/16/2024 Cocaine abuse 10/10/2022 Resolved Problems Problem Noted Date Diagnosed Date Resolved Date Trauma and stressor-related disorder 08/02/2023 05/07/2024 Suicidal ideations 05/29/2022 Major depression, recurrent 10/11/2021 05/07/2024 Substance induced mood disorder ([facility]) 06/11/1905/07/2024 Affective psychosis, bipolar ([facility]) 01/03/2019 05/07/2024 Encounters Date Type Department Care Team Description 02/24/2025 10:47 AM EST - 02/24/2025 11:55 AM EST Emergency [facility] ADULT EMERGENCY DEPARTMENT [address] [place] [address] Ariane Marcus MD Depression, unspecified depression type (Primary Dx) Discharge Disposition: DISCHARGED TO HOME/ASSISTED LIVING/SELF CARE (ROUTINE DISCHARGE) 02/24/2025 Travel 02/21/2025 10:37 PM EST - 02/22/2025 5:[address] [facility] [place] ADULT EMERGENCY DEPARTMENT [address] [address] Reshma Hernandez MD Unhappiness (Primary Dx) Discharge Disposition: DISCHARGED TO HOME/ASSISTED LIVING/SELF CARE (ROUTINE DISCHARGE) 02/21/2025 Travel 02/17/2025 2:17 PM EST - 02/17/2025 3:[address] [facility] ADULT EMERGENCY DEPARTMENT [address] [place], [place] [id number] Sherita Fontana MD Paronychia of finger of right hand (Primary Dx) Discharge Disposition: DISCHARGED TO HOME/ASSISTED LIVING/SELF CARE (ROUTINE DISCHARGE) 02/17/2025 Travel 02/16/2025 2:30 AM EST - 02/16/2025 11:59 PM [facility] ADULT EMERGENCY DEPARTMENT [address] [place] [address] 02/15/2025 11:12 PM EST - 02/16/2025 9:[address] [facility] ADULT EMERGENCY DEPARTMENT [address] [place] [address] Almita Sierra DO Asher, Shellie, MD Suicidal ideation (Primary Dx) Discharge Disposition: DISCHARGED/TRANSFERRE D TO A PSYCHIATRIC HOSPITAL OR PSYCHIATRIC DISTINCT PART UNIT OF A HOSPITAL 02/12/2025 External Contact EXTERNAL LOCATION [address] [place] [address] Hixny, Default Provider 02/09/2025 External Contact EXTERNAL LOCATION [address] [place] [address] Hixny, Default Provider 02/09/2025 - 02/09/2025 2:[address] [facility] [place] ADULT EMERGENCY DEPARTMENT [address] [place] [phone] Fred Booth MD Sadness (Primary Dx); Dental infection Discharge Disposition: DISCHARGED TO HOME/ASSISTED LIVING/SELF CARE (ROUTINE DISCHARGE) 02/08/2025 7:40 AM EST - 02/08/2025 12:[address] [facility] ADULT EMERGENCY DEPARTMENT [address] [place] [address] Goldy Logan MD Stimulant use disorder (Primary Dx); Behavioral and emotional disorders with onset usually occurring in childhood and adolescence Discharge Disposition: DISCHARGED TO HOME/ASSISTED LIVING/SELF CARE (ROUTINE DISCHARGE) 02/08/2025 Travel 02/06/2025 10:49 AM EST - 02/06/2025 11:[address] [facility] ADULT EMERGENCY DEPARTMENT [address] [place] [address] Jerry Pompa MD Pain, dental (Primary Dx) Discharge Disposition: DISCHARGED TO HOME/ASSISTED LIVING/SELF CARE (ROUTINE DISCHARGE) 01/23/2025 11:29 PM EDT - 01/26/2025 12:30 PM EDT [facility] ADULT EMERGENCY DEPARTMENT [address] [place] [address] Almita Sierra DO Cordi, Heidi, MD Pinto, Dorcas, MD Gillespie, Geoffry, MD Waxman, Michael, MD Bracey, Alexander, MD Brodie, Amy Londono MD Cocaine use disorder, severe ([facility]) (Primary Dx); Substance use disorder Discharge Disposition: DISCHARGED TO HOME/ASSISTED LIVING/SELF CARE (ROUTINE DISCHARGE) 01/23/2025 Travel 01/14/2025 External Contact EXTERNAL LOCATION [address] [place] [phone] Hixny, Default Provider 01/13/2025 External Contact EXTERNAL LOCATION [address] [place] [phone] Hixny, Default Provider 01/12/2025 Travel 01/10/2025 4:50 AM EDT - 01/12/2025 11:50 AM EDT [facility] ADULT EMERGENCY DEPARTMENT [address] [place] [address] Grajny, Mansi, Almita Kitchen DO Aly, Iman, MD Palmieri, Timothy, MD Snyder, Howard, MD Chow, Yvonne, MD Hogan, Kathryn A, MD Suicidal ideations (Primary Dx) Discharge Disposition: DISCHARGED TO HOME/ASSISTED LIVING/SELF CARE (ROUTINE DISCHARGE) 01/04/2025 4:19 AM EDT - 01/04/2025 10:10 AM EDT [facility] ADULT EMERGENCY DEPARTMENT [address] [place] [address] Denisha Ribeiro MD Vines, Spenser, DO Suicidal ideation (Primary Dx) Discharge Disposition: DISCHARGED TO HOME/ASSISTED LIVING/SELF CARE (ROUTINE DISCHARGE) 12/28/2024 4:59 AM EDT - 12/28/2024 12:32 PM EDT [facility] ADULT EMERGENCY DEPARTMENT [address] [place] [address] Radha Mckoy MD Waldrop, Michael, MD Encounter for psychological evaluation (Primary Dx) Discharge Disposition: DISCHARGED TO HOME/ASSISTED LIVING/SELF CARE (ROUTINE DISCHARGE) 12/22/2024 1:37 AM EDT - 12/22/2024 6:36 AM EDT [facility] ADULT EMERGENCY DEPARTMENT [address] [place] [address] Hua Masterson MD Suicidal thoughts (Primary Dx) Discharge Disposition: DISCHARGED TO HOME/ASSISTED LIVING/SELF CARE (ROUTINE DISCHARGE) 12/11/2024 External Contact EXTERNAL LOCATION [address] [place] [phone] Vince, [facility] Provider 12/08/2024 5:33 AM EDT - 12/09/2024 10:00 AM EDT [facility] ADULT EMERGENCY DEPARTMENT [address] [place] [address] Denisha Ribeiro MD Cordi, Heidi, MD Noonan, Jessica, MD Zhang, Wen Rong, MD Thibodeau, Lorraine, MD Sadness (Primary Dx) Discharge Disposition: DISCHARGED TO HOME/ASSISTED LIVING/SELF CARE (ROUTINE DISCHARGE) 12/08/2024 Travel 12/07/2024 2:30 AM EDT - 12/07/2024 12:18 PM EDT Emergency [facility] ADULT EMERGENCY DEPARTMENT [address] [place] [address] Denisha Ribeiro MD Pauze, Denis, [...] 12 lead (02/16/2025 2:30 AM EST) Pathologist [facility] Diagnosis Class Borderline Abnormal GE MUSE Ventricular Rate 61 BPM GE MUSE Atrial Rate 61 BPM GE MUSE NC Interval 174 ms GE MUSE QRS DURATION 110 ms GE MUSE QT Interval 444 ms GE MUSE QTC CALCULATION (BAZETT) 446 ms GE MUSE P [place] 83 degrees GE MUSE R [place] 77 degrees GE MUSE T Wave [place] 67 degrees GE MUSE 02/16/2025 2:29 AM [...] FOR LVH, MAY BE NORMAL VARIANT ( [place] product) BORDERLINE ECG Confirmed by Ricardo Gomez ([id number]) on 02/17/2025 9:56:37 AM us Trevor ZIMMERMAN ECG ORDERABLES Final Resu lt GE MUSE * Rapid Covid-19 (POC) (02/16/2025 2:24 AM EST) Only the most recent of2 resultswithin the time period is included. Pathologist [facility] Rapid Covid 19 Negative Negative, Invalid 02/16/2025 2:[address] [facility] Comment:The [facility] ID NOW COVID-19 was designated to detect the causative agent of COVID-19. [employer] was granted Emergency Use Authorization (EUA) from the FDA to distribute this test kit. Negative results do not preclude SARS-CoV-2 infection and should not be used as the sole basis for patient management decisions. Swab Both anterior nares / Unknown 02/16/2025 2:24 AM EST 02/16/2025 2:44 AM EST [facility] LABORATORY - 02/16/2025 2:44 AM EST Performed at:[address] [place] [address] Almita Sierra DO LAB POINT OF CARE T EST DOCKED DEVICE UNSOLICITED RESULTS Final Result [facility] [address] [place] [address], * (ABNORMAL) Drug Screen Panel, Urine (02/16/2025 2:11 AM EST) Only the most recent of2 resultswithin the time period is included. [facility] Amphetamines, Urine Negative Negative 02/16/2025 3:[address] [facility] Comment: I-Negative THRESHOLD 500 NG/ML Barbiturates, Urine Negative Negative 02/16/2025 3:[address] [facility] Comment: I-Negative THRESHOLD 200 NG/ML Cocaine Metabolite, Urine Positive(A) Negative 02/16/2025 3:[address] [facility] Comment: I-Positive THRESHOLD 150 NG/ML PRESUMPTIVE POSITIVE BY SCREENING METHOD. THIS RESULT HAS NOT BEEN CONFIRMED BY A CONFIRMATORY TECHNIQUE. Opiates, Urine Negative Negative 02/16/2025 3:[address] [facility] Comment: I-Negative THRESHOLD 200 NG/ML Benzodiazepines, Urine Negative Negative 02/16/2025 3:[address] [facility] Comment: I-Negative THRESHOLD 200 NG/ML Methadone, Urine Negative Negative 02/17/20 3:04 AM EST [facility] Comment: I-Negative THRESHOLD 300 NG/ML Phencyclidine (PCP), Urine Negative Negative 02/16/2025 3:[address] [facility] Comment: I-Negative THRESHOLD 25 NG/ML Cannabinoids, Urine Negative Negative 02/16/2025 3:[address] [facility] Comment: I-Negative THRESHOLD 50 NG/ML Urine Urine specimen obtained by clean catch procedure / Unknown Non-blood Collection / Unknown 02/16/2025 2:11 AM EST 02/16/2025 2:25 AM EST us Trevor ZIMMERMAN LAB URINE ORDERABLES Final Result [facility] [address] [place] [address], [place] * Urinalysis With Reflex To Urine Culture (02/16/2025 2:11 AM EST) Only the most recent of3 resultswithin the time period is included. Color Yellow Yellow, Dark Yellow 02/16/2025 2:[address] [facility] Clarity Clear Clear 02/16/2025 2:[address] [facility] Leukocytes Negative Negative 02/16/2025 2:[address] [facility] Nitrite Negative Negative 02/16/2025 2:[address] [facility] Blood Negative Negative, NEG 02/16/2025 2:[address] [facility] Glucose Negative Negative 02/16/2025 2:[address] [facility] Ketones Negative Negative 02/16/2025 2:[address] [facility] pH 6.0 5.0 - 8.0 pH 02/16/2025 2:[address] [facility] Specific [place], UA 1.023 1.002 - 1.029 02/16/2025 2:[address] [facility] Bilirubin Negative Negative, NEG 02/16/2025 2:[address] [facility] Urobilinogen 0.2 0.2, 1.0 mg/dL 02/16/2025 2:[address] [facility] Protein Negative Negative 02/16/2025 2:[address] [facility] Urine Urine specimen obtained by clean catch procedure / Unknown Non-blood Collection / Unknown 02/16/2025 2:11 AM EST 02/16/2025 2:25 AM EST us Trevor ZIMMERMAN LAB URINE ORDERABLES Final Result [facility] [address] [place] [address], [place] * (ABNORMAL) Automated Differential (02/16/2025 2:08 AM EST) Only the most recent of3 resultswithin the time period is included. Neutrophils % 51.5 41.0 - 67.0 % 02/16/2025 3:[address] [facility] Lymphocytes % 33.4 28.0 - 42.0 % 02/16/2025 3:[address] [facility] Monocytes % 10.2(H) 4.0 - 9.0 % 02/16/2025 3:[address] [facility] Eosinophils % 3.8 0.0 - 5.0 % 02/16/2025 3:[address] [facility] Basophils % 0.8 0.0 - 1.0 % 02/16/2025 3:[address] [facility] Immature Granulocytes % 0.3 0.0 - 1.0 % 02/16/2025 3:[address] [facility] Absolute Neutrophils 5.12 1.60 - 6.20 10*3/uL 02/16/2025 3:[address] [facility] Absolute Lymphocytes 3.33 1.10 - 3.90 10*3/uL 02/16/2025 3:[address] [facility] Absolute Monocytes 1.02(H) 0.20 - 0.80 10*3/uL 02/16/2025 3:[address] [facility] Absolute Eosinophils 0.38 0.00 - 0.50 10*3/uL 02/16/2025 3:[address] [facility] Absolute Basophils 0.08 0.00 - 0.10 10*3/uL 02/16/2025 3:[address] [facility] Absolute Immature Granulocytes 0.03 0.00 - 0.10 10*3/uL 02/16/2025 3:[address] [facility] Blood Venous blood / Unknown Venipuncture / Unknown 02/16/2025 2:08 AM EST 02/16/2025 2:27 AM EST us Trevor ZIMMERMAN LAB BLOOD ORDERABLES Final Result [facility] [address] [place] [address], [place] * (ABNORMAL) Complete Blood Count (02/16/2025 2:08 AM EST) Only the most recent of3 resultswithin the time period is included. WBC 10.0(H) 4.0 - 9.3 10*3/uL 02/16/2025 3:[address] [facility] Hemoglobin 13.9 11.0 - 16.7 g/dL 02/16/2025 3:[address] [facility] Hematocrit 40.6 33.0 - 49.0 % 02/16/2025 3:[address] [facility] RBC 4.56 4.00 - 5.70 10*6/uL 02/16/2025 3:[address] [facility] MCV 89.0 82.3 - 93.2 fL 02/16/2025 3:[address] [facility] MCH 30.5 27.5 - 32.2 pg 02/16/2025 3:[address] [facility] MCHC 34.2 32.5 - 35.5 g/dL 02/16/2025 3:[address] [facility] RDW 12.3 12.0 - 15.0 % 02/16/2025 3:[address] [facility] Platelet Count 298 130 - 350 10*3/uL 02/16/2025 3:[address] [facility] MPV 10.0 7.5 - 10.7 fL 02/16/2025 3:[address] [facility] NRBC % 0.0 <=0.0 % 02/16/2025 3:[address] [facility] Absolute NRBC 0.00 <=0.00 10*3/uL 02/16/2025 3:[address] [facility] Blood Venous blood / Unknown Venipuncture / Unknown 02/16/2025 2:08 AM EST 02/16/2025 2:27 AM EST Trevor L Elizabeth PA LAB BLOOD ORDERABLES Final Result Performing Organization Address [facility]/ZIP Co de Phone Number [facility] [address] [place] [address], [place] * Ethanol (02/16/2025 2:08 AM EST) Only the most recent of3 resultswithin the time period is included. Ethanol <10 <=10 mg/dL 02/16/2025 3:[address] [facility] Comment: I-Result < dynamic range M-Verified value by repeat analysis > = 50 mg/dl (legally impaired) >= 80 mg/dl (legally intoxicated) Blood Venous blood / Unknown Venipuncture / Unknown 02/16/2025 2:08 AM EST 02/16/2025 2:26 AM EST Trevor L Elizabeth PA LAB BLOOD ORDERABLES Final Result Performing Organization Address [facility] Co de Phone Number [facility] [address] [place] [address], [place] * (ABNORMAL) Acetaminophen Level (02/16/2025 2:08 AM EST) Only the most recent of3 resultswithin the time period is included. Acetaminophen 0.3(L) Therapeutic Range: 10-30 ug/mL ug/mL 02/16/2025 3:[address] [facility] Comment: Toxic: Greater than 150 ug/mL at 4 hours after ingestion or half-life greater than 4 hours. Blood Venous blood / Unknown Venipuncture / Unknown 02/16/2025 2:08 AM EST 02/16/2025 2:26 AM EST Trevor Johnson DE LAB BLOOD ORDERABLES Final Result Performing Organization Address [facility] de Phone Number [facility] [address] [place] [address], [place] * Salicylate (02/16/2025 2:08 AM EST) Only the most recent of3 resultswithin the time period is included. Salicylate <1.5 Therapeutic Range: 2-30 mg/dL mg/dL 02/16/2025 3:[address] [facility] Comment: I-Result < dynamic range M-Verified value by repeat analysis Therapeutic: Analgesia: Up to 20 mg/dl Antipyresis: Up to 20 mg/dl Anti-inflammatory: Up to 30 mg/dl Toxic: >30.0 mg/dl Blood Venous blood / Unknown Venipuncture / Unknown 02/16/2025 2:08 AM EST 02/16/2025 2:26 AM EST Trevor ZIMMERMAN LAB BLOOD ORDERABLES Final Result Performing Organization Address [facility] de Phone Number [facility] [address] [place] [address], [place] * (ABNORMAL) Comprehensive Metabolic Panel (02/16/2025 2:08 AM EST) Only the most recent of3 resultswithin the time period is included. Sodium 144 135 - 145 mmol/L 02/16/2025 3:[address] [facility] Potassium 3.4 3.4 - 5.2 mmol/L 02/16/2025 3:[address] [facility] Chloride 106 99 - 109 mmol/L 02/16/2025 3:[address] [facility] Carbon Dioxide 31(H) 21 - 30 mmol/L 02/16/2025 3:[address] [facility] Comment: High LDH can falsely elevate CO2 results. If elevated LDH levels are clinically suspected, interpret CO2 with caution. Blood Urea Nitrogen (BUN) 23(H) 7 - 22 mg/dL 02/16/2025 3:[address] [facility] Creatinine 0.85 0.60 - 1.30 mg/dL 02/16/2025 3:[address] [facility] Glucose 142(H) 65 - 99 mg/dL 02/16/2025 3:[address] [facility] Calcium 9.0 8.6 - 10.3 mg/dL 02/16/2025 3:[address] [facility] Anion Gap 7 5 - 15 mmol/L 02/16/2025 3:[address] [facility] eGFR 85 >=60 mL/min/1. 73m*2 02/16/2025 3:[address] [facility] Comment: Calculation based on the Chronic Kidney Disease Epidemiology Collaboration (CKD- EPI) equation refit without adjustment for race. *This eGRF calculation is based on the 3340-PGE-MYA creatinine equations for adults designed to estimate glomerular filtration rate (eGFR) without race adjustment factors. *This eGFR results are indexed to standard body surface area (BSA) 1.73 M(2). *eGFR results should only be used for adult patients >=18 years old. *Use of nonindexed eGFR values (mL/min) should be considered for drug dosing decisions. Total Protein 6.4 6.0 - 8.0 g/dL 02/16/2025 3:[address] [facility] Albumin 3.9 3.5 - 5.2 g/dL 02/16/2025 3:[address] [facility] Globulin, Total 2.5 g/dL 3:[address] [facility] A/G Ratio 1.6 02/16/2025 3:[address] [facility] Bilirubin, Total 0.5 0.1 - 1.2 mg/dL 02/16/2025 3:[address] [facility] Alanine Aminotransferase (ALT) 15 7 - 52 U/L 02/16/2025 3:[address] [facility] Aspartate Aminotransferase (AST) 20 5 - 45 U/L 02/16/2025 3:13 AM EST [facility] Alkaline Phosphatase 78 34 - 104 U/L 02/16/2025 3:[address] [facility] Blood Venous blood / Unknown Venipuncture / Unknown 02/16/2025 2:08 AM EST 02/16/2025 2:26 AM EST us Trevor ZIMMERMAN LAB BLOOD ORDERABLES Final Result Performing Organization Address City/[facility]/ZIP Co de Phone Number [facility] [address] [place] [address], [place] * (ABNORMAL) Urine Culture - [facility] (01/10/2025 7:23 PM EDT) Urine Culture 10,000 CFU/mL Streptococcus mitis group(A) 01/12/2025 8:03 PM EDT [facility] Comment:Along with Urine Culture <10,000 colonies/ml. Insignificant colony count. No further workup. 01/12/2025 8:03 PM EDT [facility] Urine Urine specimen obtained by clean catch procedure / Unknown Non-blood Collection / Unknown 01/10/2025 7:23 PM EDT 01/10/2025 7:28 PM EDT Narrative [facility] - 01/12/2025 8:03 PM EDT The performance characteristics of the Microbial Identification methods used were determined by the Microbiology Laboratory at the [facility]. They have not been cleared or approved by the U.S. Food and Drug Administration. us Mansi Wills MD LAB MICROBIOLOGY - GENERAL ORD ERABLES Final Result [facility] [address] [place] [address], [place] * Lipid Panel with RFLX Direct LDL - [facility] (06/22/2024 8:05 PM EDT) Cholesterol 143 mg/dL 06/22/2024 8:26 PM EDT [facility] Comment: DESIRABLE <200 mg/dL BORDER LINE 200-239 mg/dL HIGH RISK >240 mg/dL Triglycerides 72 mg/dL 06/22/2024 8:26 PM EDT [facility] Comment: DESIRABLE <150 mg/dL BORDER LINE 150-199 mg/dL HIGH RISK >200 mg/dL HDL Cholesterol 50.0 mg/dL 8:26 PM EDT [facility] Comment: DESIRABLE >65 mg/dL BORDERLINE 45-65 mg/dL HIGH RISK <45 mg/dL LDL Calculated 79 <=100 mg/dL 06/22/2024 8:26 PM EDT [facility] VLDL CHOLESTEROL 14.4 5 - 40 mg/dL 06/22/2024 8:26 PM EDT [facility] CHOL/HDL RATIO 2.9 0.0 - 5.0 06/22/2024 8:26 PM EDT [facility] Blood Venous blood / Unknown Venipuncture / Unknown 06/22/2024 8:05 PM EDT 06/22/2024 8:08 PM EDT us Felice Bonilla MD LAB BLOOD ORDERABLES Final Re sult [facility] [address] [place] [address] from Last 3 Months or Most Recently Relevant to Health Maintenance Insurance [employer] Member Subscriber Plan / Payer (Ef fective 2024-Present) Name:Ashley Anton Member ID:Not on file Relation to Subscriber:Self Name:Desean Ashley Hyman Subscriber ID:Not on file Payer ID:[id number] Group ID:Not on file Type:Not on file Address: [address] [place] [address] Advance Directives For more information, please contact: [phone] (Available ) * Resuscitation Status (Latest Code Status on File) Date Activated Date Inactivated Comments 06/16/2024 3:06 PM 06/17/2024 1:03 PM Question Answer Comments If no pulse and/or not breathing: Attempt CPR If pulse and breathing present: Intubati on and assisted mechanical ventilation Care Teams Spray Drier Relationship Specialty Start Date End Date Provider, No PCP - General 12/01/24
--- OUTSIDE RECORDS SUMMARY | 2025-03-06 04:48 | XMS_ITS | Encounter Summary ---
Author Organization [facility] Address [address] [place] [address] Phone Care Team Providers Care Armature Rewinder Name Role Phone Provider, No Primary Care Provider Haroon e Encounter Details Date Type Department Care Team (Late st Contact Info) Description 09/17/2024 External Contact EXTERNAL LOCATION [address] [place] [phone] Vince, Rosa Provider Social History Tobacco [...] AM EDT Emergency Discharge Alert Powered by [id number] Patient Name: WAGNER MONTEJO : [id number] Patient Patient MR#: [id number] Source Facility: [facility] ATT-ClinicianName: DAMARI REYNAGACode: [id number]: NPI AdmitDateTime: 2024-09-17 01:24:00 DischargeDateTime: 2024-09-17 10:00:00 Admit Reason Description: Detox AllergenTypeIDDescSeverityCodeReactionCodeIDDate 1903ALOE [id number] 00:00:00 1020VITAMIN E (D-ALPHA TOCOPHEROL)[id number] 00:00:00 [id number] 00:00:00 [id number] 00:00:00 DiagnosisCodeDesc Z76.5Malingerer (conscious simulation) Discharge Disposition: Home or Self Care Electronically signed by Interface, [employer] Layer Helper [employer] at 09/17/2024 10:24 AM EDT documented in this encounter Plan [...] documented as of this encounter Care Teams Armature Rewinder Relationship Specialty Start Date End Date Provider, No PCP - General 12/01/24 documented as of this encounter
--- OUTSIDE RECORDS SUMMARY | 2025-03-06 04:48 | XMS_ITS | Clinical Summary ---
Author Organization [facility] Prior to 08/30/24 Address [address] [place] [address] Care Team Providers Care Motor Tester Name Role Phone Unavailable Primary Care Provider [...] Advance Directives For more information, please contact: [phone] Documents on File Type Date Recorded Patient Wastewater Analyst Expl anation Advance Directive and Living Will [...]
--- OUTSIDE RECORDS SUMMARY | 2025-03-06 04:49 | XMS_ITS | Encounter Summary ---
Author Organization [facility], [place], operated [facility] Address [address] [place] [address] Phone Care Team Providers Care Molded Rubber Goods Cutter Name Role Phone Provider, No Primary Care Provider Unavailabl e Encounter Details Date Type Department Care Team (Late st Contact Info) Description 02/12/2025 External Contact EXTERNAL LOCATION [address] [place] [phone] Vince, Rosa Provider Social History Tobacco [...] 02/15/2025 11:14 PM Marlen Wren RN * [place] Suicide Severity Rating Scale (Screener/Recent Self-Report) Question [...] AM EST Emergency Discharge Alert Powered by [id number] Patient Name: WAGNER MONTEJO : [id number] Patient Patient MR#: [id number] Source Facility: [facility] ATT-ClinicianName: SHAKIR ISAACSCode: [id number]: AdmitDateTime: 2025-02-12 02:15:00 DischargeDateTime: 2025-02-12 08:17:00 Admit [...] documented as of this encounter Care Teams Molded Rubber Goods Cutter Relationship Specialty Start Date End Date Provider, No PCP - General 12/01/24 documented as of this encounter
--- OUTSIDE RECORDS SUMMARY | 2025-03-06 04:49 | XMS_ITS | Encounter Summary ---
Author Organization [facility], [place], [facility] Address [address] [place] [address] Phone Care Team Providers Care Crozer Name Role Phone Provider, No Primary Care Provider Unavailabl e Encounter Details Date Type Department Care Team (Late st Contact Info) Description 12/11/2024 External Contact EXTERNAL LOCATION [address] [place] [phone] Vince, Rosa Provider Social History Tobacco [...] AM EDT Emergency Discharge Alert Powered by [id number] Patient Name: WAGNER MONTEJO : [id number] Patient Patient MR#: [id number] Source Facility: [facility] ADM-ClinicianName: UNKNOWN UNKNOWNCode: UNKNOWNAA: NPI ATT-ClinicianName: DAMARI REYNAGACode: [id number]: AdmitDateTime: 2024-12-11 01:25:00 DischargeDateTime: 2024-12-11 12:26:00 Admit Reason Code: Back Pain AllergenTypeIDDescSeverityCodeReactionCodeIDDate No Allergy Found DiagnosisCodeDst. joseph's [facility] R45.851Suicidal ideations F32.ADepression, unspecified Electronically signed by Interface, Printed Circuit Board Panels Deburrer In [employer] at 12/11/2024 12:28 PM EDT documented in this encounter Plan of Treatment Not on file documented as of this encounter Visit Diagnoses Not on filedocumented in this encounter Additional Health Concerns Infection Onset Date Last Indicated Resolved Time Respiratory Rule-Out 01/10/2025 01/10/2025 025 7:46 PM EDT Respiratory Rule-Out 02/16/2025 02/16/2025 025 2:44 AM EST documented as of this encounter Care Teams Crozer Relationship Specialty Start Date End Date Provider, No PCP - General 12/01/24 documented as of this encounter
--- OUTSIDE RECORDS SUMMARY | 2025-03-06 04:49 | XMS_ITS | Clinical Summary ---
Author Organization [facility] Address [address] [place] [address] Phone Care Team Providers Care Perianesthesia Nurse Name Role Phone Pcp, Unknown Primary Care Provider Grace Carpenter MD Unavailable [phone] Allergies Active Allergy Reactions Criticality Noted Date [...] Date Type Department Care Team Description 12/29/2024 [facility] RISK SCORES SYSTEM GENERATED External System Generated Encounter [address] [place] [address] Unknown, Unknown, from Last 3 Months Immunizations [...] EDT) SODIUM 135 133 - 146 mmol/L [facility] CHLORIDE 100 96 - 108 mmol/L [facility] POTASSIUM 3.8 3.3 - 5.1 mmol/L [facility] CO2 23 21 - 35 mmol/L [facility] BUN 20(H) 6 - 19 mg/dL [facility] CREATININE 0.60 0.5 - 1.5 mg/dL [facility] GLUCOSE 85 70 - 99 mg/dL [facility] CALCIUM 8.7 8.4 - 10.3 mg/dL [facility] EGFR 111 >59 mL/min/1.7 3m2 [facility] Comment:Estimated glomerular filtration rate calculated using the CKD-EPI refit equation. ANION GAP 16 10 - 20 mmol/L [facility] Blood 09/01/2023 2:54 AM EDT 09/01/2023 2:58 AM EDT us Shawn Villa MD LAB BLOOD BKR ORDERABLES Fi nal Result Performing Organization Address City/State/[facility] Co de Phone Number [address] [address] * TSH with reflex (08/02/2023 10:12 AM EDT) TSH 3.20 0.27 - 4.20 uIU/mL [facility] Blood 08/02/2023 10:1 2 AM EDT 08/02/2023 10:26 AM EDT us Goldy Ventura MD LAB BLOOD BKR ORDERABLES F inal Result Performing Organization Address City/State/[facility] Co de Phone Number [address] [address] * (ABNORMAL) Lipid panel (08/02/2023 10:12 AM EDT) HDL 57 mg/dL [facility] Comment: Interpretation <40 mg/dL: Low HDL cholesterol (major risk factor for CHD) Greater than or equal to 60 mg/dL: High HDL cholesterol ( negative risk factor for CHD) HDL - cholesterol is affected by a number of factors, e.g. smoking, excerise, hormones, sex and age. CHOLESTEROL 176 0 - 240 mg/dL [facility] TRIGLYCERIDES 88 30 - 160 mg/dL [facility] LDL 101 50 - 129 mg/dL [facility] Comment: LDL levels in terms of risk for coronary heart disease: <100 mg/dL: Optimal 100-129 mg/dL: Near or above optimal 130-159 mg/dL: Borderline high 160-189 mg/dL: High >190 mg/dL: Very High CARDIAC RISK RATIO 3.1(L) 3.3 - 4.4 [facility] Blood 08/02/2023 10:1 2 AM EDT 08/02/2023 10:27 AM EDT us Goldy Ventura MD LAB BLOOD BKR ORDERABLES F inal Result Performing Organization Address [facility] Co de Phone Number [address] [address] * (ABNORMAL) [place] level (07/28/2023 11:54 PM EDT) LITHIUM 0.24(L) 0.5 - 1.00 mmol/L [facility] 07/28/2023 11:5 4 PM EDT 07/29/2023 12:03 AM EDT us Alannah Melvin PA-C LAB BLOOD BKR ORDERAB LES Final Result Performing Organization Address [facility] Co de Phone Number [address] [address] from Last 3 Months or Most Recently Relevant to Health Maintenance [place] [address] [address] [address] [employer] GENER[employer] COMMERCIAL [facility] [employer] [address] [place] [address] [employer] [address] [address] [place] [address] [employer] GENER[employer]ERCIAL Member Subscriber Plan / Payer ( fective 2023-) Name:Ashley Anton Relation to Subscriber:Self Name:Ashley Anton Payer ID:Not on file Group ID:Not on file Type:Indemnity Address: ATTN: Claims [address] [facility] [place] [id number] GENERIC COMMERCIAL GENERIC COMMERCIAL Advance Directives For more information, please contact: [phone] (9AM - 5PM [facility], Sunday-Sunday) * Full Code (Latest Code Status [...] 5:28 PM 04/10/2018 1:54 PM Care Teams Perianesthesia Nurse Relationship Specialty Start Date End Date Pcp, Unknown PCP - General 10/08/22 Grace Kahn MD [address] [place] [address], [address] [place] [address] [email or web address] Insurance Assigned Provider 02/14/25 Additional Source Comments The information contained in this document represents components of the legal health record. It is not the complete legal health record.[facility]
--- OUTSIDE RECORDS SUMMARY | 2025-03-06 04:49 | XMS_ITS | Encounter Summary ---
Author Organization [facility] Address [address] [place] [address] Phone Care Team Providers Care Destaticizer Feeder Name Role Phone Provider, No Primary Care Provider Unavailabl e Encounter Details Date Type Department Care Team (Late st Contact Info) Description 01/13/2025 External Contact EXTERNAL LOCATION [address] [place] [phone] Vince, Rosa Provider Social History Tobacco [...] AM EDT Emergency Discharge Alert Powered by [id number] Patient Name: WAGNER MONTEJO : [id number] Patient Patient MR#: [id number] Source Facility: [facility] ADM-ClinicianName: UNKNOWN UNKNOWNCode: UNKNOWNAA: NPI ATT-ClinicianName: DANIELA MANNINGCode: [id number]: AdmitDateTime: 2025-01-13 00:35:00 DischargeDateTime: 2025-01-13 11:12:00 Admit Reason Code: suicidal ideations AllergenTypeIDDescSeverityCodeReactionCodeIDDate No Allergy Found DiagnosisCodeDes R45.851Suicidal ideations Electronically signed by Interface, Social Service Liaison In [employer] at 01/13/2025 11:15 AM EDT documented in this encounter Plan of Treatment Not on file documented as of this encounter Visit Diagnoses Not on filedocumented in this encounter Additional Health Concerns Infection Onset Date Last Indicated Resolved Time Respiratory Rule-Out 02/16/2025 02/16/2025 025 2:44 AM EST documented as of this encounter Care Teams Destaticizer Feeder Relationship Specialty Start Date End Date Provider, No PCP - General 12/01/24 documented as of this encounter
--- OUTSIDE RECORDS SUMMARY | 2025-03-06 04:49 | XMS_ITS | Encounter Summary ---
Author Organization [facility] Address [address] [place] [address] Phone Care Team Providers Care Sleeve Presser Operator Name Role Phone Provider, No Primary Care Provider Unavailabl e Encounter Details Date Type Department Care Team (Late st Contact Info) Description 01/14/2025 External Contact EXTERNAL LOCATION [address] [place] [phone] Vince, Rosa Provider Social History Tobacco [...] AM EDT Emergency Discharge Alert Powered by [id number] Patient Name: WAGNER MONTEJO : [id number] Patient Patient MR#: [id number] Source Facility: [facility] ADM-ClinicianName: UNKNOWN UNKNOWNCode: UNKNOWNAA: NPI ATT-ClinicianName: UNKNOWN UNKNOWNCode: UNKNOWNAA: AdmitDateTime: 2025-01-14 06:58:00 DischargeDateTime: 2025-01-14 10:49:00 Admit Reason Code: SI AllergenTypeIDDescSeverityCodeReactionCodeIDDate No Allergy Found DiagnosisCodeDparkview [facility] R45.851Suicidal ideations documented in this encounter Plan of Treatment Not on file documented as of this encounter Visit Diagnoses Not on filedocumented in this encounter Additional Health Concerns Infection Onset Date Last Indicated Resolved Time Respiratory Rule-Out 02/16/2025 02/16/2025 025 2:44 AM EST documented as of this encounter Care Teams Sleeve Presser Operator Relationship Specialty Start Date End Date Provider, No PCP - General 12/01/24 documented as of this encounter
--- OUTSIDE RECORDS SUMMARY | 2025-03-06 04:49 | XMS_ITS | Clinical Summary ---
Author Organization [facility] Address [facility] [place] [address] Care Team Providers Care Buildings And Grounds Director Name Role Phone None Primary Care Provider [...] - 199 mg/dL 08/09/2024 8:11 PM EDT [facility] Comment:Glucose Concentratio n >=200 mg/dL plus symptoms is consistent with Diabetes Mellitus. Blood Urea Nitrogen 20 8 - 20 mg/dL 08/09/2024 8:11 PM EDT [facility] Creatinine 0.76 0.70 - 1.50 mg/dL 08/09/2024 8:11 PM EDT [facility] Sodium 141 135 - 145 mMol/L 08/09/2024 8:11 PM EDT [facility] Potassium 3.9 3.5 - 5.0 mMol/L 08/09/2024 8:11 PM EDT [facility] Chloride 103 98 - 107 mMol/L 08/09/2024 8:11 PM EDT [facility] Carbon Dioxide 25 22 - 31 mMol/L 08/09/2024 8:11 PM EDT [facility] Anion Gap 13 5 - 15 mMol/L 08/09/2024 8:11 PM [facility] Calcium 9.4 8.5 - 10.5 mg/dL 08/09/2024 8:11 PM [facility] Protein, Total 6.9 6.1 - 8.0 g/dL 08/09/2024 8:11 PM [facility] Albumin 4.2 3.2 - 5.2 g/dL 08/09/2024 8:11 PM [facility] Aspartate Aminotransferase 18 <=39 unit/L 08/09/2024 8:11 PM [facility] Alanine Aminotransferase 21 0 - 55 unit/L 08/09/2024 8:11 PM [facility] Alkaline Phosphatase 86 35 - 130 unit/L 08/09/2024 8:11 PM [facility] Bilirubin, Total 0.6 <=1.3 mg/dL 08/09/2024 8:11 PM [facility] Est Glomerular Filtration Rate - Male 111 mL/min/1. 73 m 08/09/2024 8:11 PM [facility] Comment: This patient's estimated GFR was [...] 97 mL/min/1. 73 m 08/09/2024 8:11 PM [facility] Comment: This patient's estimated GFR was [...] Evans MD CHEMISTRY ORDERABLES Final R esult [facility] [address] [place] [address] from Last 3 Months or Most Recently Relevant to Health Maintenance Insurance MEDICAID [place] Care Teams Buildings And Grounds Director Relationship Specialty Start Date End Date None None PCP - General 08/09/24
--- OUTSIDE RECORDS SUMMARY | 2025-03-06 04:49 | XMS_ITS | Encounter Summary ---
Author Organization [facility] Address [address] [place] [address] Phone Care Team Providers Care Management Department Chair Name Role Phone Provider, No Primary Care Provider Unavailabl e Encounter Details Date Type Department Care Team (Late st Contact Info) Description 02/09/2025 External Contact EXTERNAL LOCATION [address] [place] [phone] Luisxdelfino, Default Provider Social History Tobacco [...] AM EST Emergency Discharge Alert Powered by [id number] Patient Name: WAGNER MONTEJO : [id number] Patient Patient MR#: [id number] Source Facility: [facility] AdmitDateTime: 2025-02-09 07:39:00 DischargeDateTime: 2025-02-09 17:37:00 [...] documented as of this encounter Care Teams Management Department Chair Relationship Specialty Start Date End Date Provider, No PCP - General 12/01/24 documented as of this encounter
[2025-03-06 04:58] LABS: Hematocrit 42.5 % (37.0-47.0); Hemoglobin 14.5 g/dl (12.0-16.0); Imm Gran Abs Auto 0.04 X10*3/uL (0.00-0.03); Imm Gran Pct Auto 0.3 % (0.0-0.4); Lymphocytes Absolute Auto 1.7 X10*3/uL (1.2-4.9); MANUAL DIFF FLAG NO; Mean Corpuscular HGB Conc 34.1 g/dl (31.0-35.0); Mean Corpuscular Hemoglobin 31.0 pg (27.0-33.0); Mean Corpuscular Volume 91.0 fL (80.0-98.0); NRBC Abs Auto 0.000 X10*3/uL (0.0-0.012); NRBC Pct Auto 0.0 /100WBC (0.0-0.2); Platelet Count 237 X10*3/uL (160-400); Red Blood Count 4.67 X10*6/uL (4.20-5.50); White Blood Count 12.6 X10*3/uL (4.8-10.8)
--- NOTE | 2025-03-06 05:04 | MHC.EDTECH ---
pt changed over by this tech and Will from security. belongings searched and locked in locker #7. Meds given to EMERITA Crouch.
--- NOTE | 2025-03-06 05:05 | PC.NURSE ---
pt changed over prior to coming over to the pod, medication place to be delivered to pharmacy, belonging in locker
[2025-03-06 05:12] LABS: Alanine Aminotransferase 39 U/L (0-31); Albumin Level 4.5 g/dL (3.5-5.0); Alkaline Phosphatase 81 U/L (39-117); Anion Gap 14 (12-20); Aspartate Amino Transferase 33 U/L (5-31); Blood Urea Nitrogen 18 mg/dL (9-16); Calcium 9.2 mg/dL (8.4-10.2); Carbon Dioxide 26 mmol/L (22-29); Chloride 102 mmol/L (96-108); Creatinine Clr Calc Pharmacy 128.1; Estimated Glomerular Filt Rate > 60; Potassium 3.9 mmol/L (3.3-5.1); Sodium 138 mmol/L (135-145); Total Protein 7.2 g/dL (6.5-8.0)
[2025-03-06 05:15] LABS: Acetaminophen LAB < 3 mcg/mL (<30); Salicylate < 5.0 mg/dL (15-30)
[2025-03-06 05:20] LABS: Cannabinoid Screen Urine Not Detected (Not Detect)
--- NOTE | 2025-03-06 05:25 | PC.NURSE ---
provider into see pt.
--- NOTE | 2025-03-06 05:31 | ED_ITS ---
HPI - Psych General Chief Complaint: Psychiatric Symptoms Stated Complaint: SI Time Seen by Provider: 03/06/25 05:23 Source: patient Mode of arrival: ambulatory Limitations: no limitations History of Present Illness ED Provider: Dr. Machelle Stockton HPI Narrative: Patient comes to the emergency room reporting suicidal ideation. Of note, patient was discharged from the hospital less than 24 hours ago. According to the psychiatry note, patient was found ambulating out of her room in the hallway, patient stated that she was feeling ?good? and was ready for discharge. Patient denied SI or depression, no HI. Then patient was discharged. However, according to the patient, patient states that she request to be discharged because someone in the psychiatry floor called her a faggot , and therefore patient requested to be discharged. Related Data Previous Rx's ?Medication ?Instructions ?Recorded aripiprazole 5 mg tablet (Abilify) 5 mg PO DAILY #30 t abs 03/05/25 hydroxyzine HCl 25 mg tablet 25 mg PO Q6H PRN mild anx iety #30 03/05/25 tabs trazodone 50 mg tablet 50 mg PO BEDTIME MRX1 PRN In somnia 03/05/25 #30 tabs Allergies Allergy/AdvReac Type Severity Reaction Status Date / Time nicotine (From NICODERM CQ) Allergy Mild SHORTNESS Verified 03/06/25 04:36 OF BREATH ketchup (KETCHUP) Allergy Unknown RASH Verified 03/06/25 04:36 onion (ONION) Allergy Unknown RASH Verified 03/06/25 04:36 tomato (TOMATO) Allergy Unknown RASH Verified 03/06/25 04:36 Review of Systems 2 Review of Systems: Constitutional : No Weight loss, No Fever, No Chills, No Night Sweats, No Fatigue, No Malaise ENT/Mouth : No Hearing loss, No Ear Pain, No Nasal Congestion, No Sinus Pain, No Hoarseness, No sore throat, No Rhinorrhea, No Swallowing Difficulty Eyes: No Eye Pain, No Swelling, No Redness, No Foreign Body, No Discharge, No Vision Changes Cardiovascular : No Chest Pain, No SOB, No Dyspnea on Exertion, No Orthopnea, No Edema, No Palpitations Respiratory : No Cough, No Sputum, No Wheezing, No Smoke Exposure, No Dyspnea Gastrointestinal : No Nausea, No Vomiting, No Diarrhea, No Constipation, No abdominal Pain, No Hematochezia, No Melena Genitourinary : no irregular bleeding, No Dysuria, No Urinary Frequency, No Hematuria, No Urinary Incontinence, No Urgency, No Flank Pain, No Urinary Flow Changes, No Hesitancy Musculoskeletal : No joint pain, No Myalgias, No Joint Swelling Skin : No Skin Lesions, No rash Neuro : No Weakness, No Numbness, No Paresthesias, No Loss of Consciousness, No Dizziness, No Headache Psych : Denies anxiety, reports SI, no HI Heme/Lymph: No Bruising, No Bleeding,No Lymphadenopathy Endocrine : No Polyuria, No Polydipsia, No Temperature Intolerance [facility] Past Medical History Medical History Cocaine abuse Transgender Personality disorder Bipolar 1 disorder Social History Social History Household Members: Unknown / Unable to assess Housing: Unknown / Unable to assess Alcohol intake: current Alcohol intake frequency: does not drink Alcohol type: hard liquor Patient Tobacco Use Status: Current everyday Tobacco user Smoked in Last 30 Days: Yes Use of substances other than those prescribed or required for medical reasons: No Substance Use Type: Crack/Cocaine Advance Directives: No Advance Directives Information Provided: No service: No Sexual orientation: Lesbian/Pichardo/Homosexual Physical Exam 2 Exam: Exam: Appearance: Alert. Oriented X3. No acute distress. Eyes: Pupils equal, round and reactive to light. ENT: Pharynx normal. Neck: Normal inspection. Neck supple. No lymph nodes noted. No crepitus CVS: Normal heart rate and rhythm. Pulses normal. Normal S1 and S2 Respiratory: No respiratory distress. Breath sounds normal. No Wheezing. No rales Abdomen: Soft and nontender. No rigidity. No distention. Skin: Skin warm and dry. Normal skin color. Normal skin turgor. Extremities: No lower extremity edema. No Lacerations. No Rash Neuro: Oriented X 3. No motor deficit. No sensory deficit. Moving all extremities. No slurred speech. CN 2 through 12 grossly intact Psych: calm, cooperative, normal affect Vital Signs: Vital Signs: Last Vital Signs Temp 97.7 F 03/06/25 04:32 Pulse 80 03/06/25 10:08 Resp 16 03/06/25 10:08 BP 109/58 L 03/06/25 10:08 Pulse Ox 96 03/06/25 10:08 O2 Del Method Room Air 03/06/25 10:08 BMI result Body Mass Index 25.1 Course Course Course Narrative: Patient reports SI Care team consult pending All labs pending Physician observation started at 05:30 Reevaluation(s) Reevaluation #1: Time: 06:03 Date: 03/06/25 Provider: Shine Boone MD Patient in physician observation for psychiatric evaluation.? No acute events reported overnight. No current complaints. VS stable.? Patient is in bed search status/pending CARE team evaluation. Will continue to monitor. Reevaluation #2: 03/06/2025 11:17 am patient was seen by crisis she was cleared for discharge no SI at this time, this will end the ED psych observation. Dr Boone Medical Decision Making Medical Decision Making [facility] Narrative: My interpretation of labs: No significant acute abnormality in patient's hematology and chemistry, patient's urine toxicology positive for cocaine, negative for EtOH Care team consult pending Differential Diagnosis Differential Diagnoses: The differential diagnosis associated with the presentation includes (Anxiety, depression, homeless) Admission/Observation Consideration of admission/observation: Escalation of care including admission/observation considered (Patient is under physician observation waiting to be seen by the care team to determine patient's disposition) Lab Data [facility] Lab Attestation statement: I reviewed the patient's lab results. 03/06/25 04:48 03/06/25 04:48 Labs: Lab Results 03/06/25 03/06/25 03/06/25 Range/Units 04:42 04:48 04:48 WBC 12.6 H Cancelled (4.8-10.8) X10*3/uL RBC 4.67 (4.20-5.50) X10*6/uL Hgb (12.0-16.0) g/dl Hct (37.0-47.0) % MCV (80.0-98.0) fL MCH (27.0-33.0) pg MCHC (31.0-35.0) g/dl RDW (11.0-16.0) % Plt Count (160-400) X10*3/uL MPV (9.4-12.3) fL Immature Gran % (Auto) (0.0-0.4) % Neut % (Auto) (45-73) % Lymph % (Auto) (20-40) % [place] % (Auto) (2-11) % Eos % (Auto) (0-4) % Baso % (Auto) (0-2) % Lymph # (Auto) (1.2-4.9) X10*3/uL [place] # (Auto) (0.1-1.2) X10*3/uL Eos # (Auto) (0.0-0.4) X10*3/uL Baso # (Auto) (0.0-0.2) X10*3/uL Abs Immat Gran (auto) (0.00-0.03) X10*3/uL Absolute Neuts (auto) (2.0-8.3) x10*3/uL Absolute Nucleated RBC (0.0-0.012) X10*3/uL Nucleated RBC % (auto) (0.0-0.2) /100WBC Sodium (135-145) mmol/L Potassium (3.3-5.1) mmol/L Chloride (96-108) mmol/L Carbon Dioxide (22-29) mmol/L Anion Gap (12-20) BUN (9-16) mg/dL Creatinine (0.5-1.4) mg/dL Estim Creat Clear Calc Estimated GFR Random Glucose (60-115) mg/dL Calcium (8.4-10.2) mg/dL Total Bilirubin (0.0-1.0) mg/dL AST (5-31) U/L ALT (0-31) U/L Alkaline Phosphatase (39-117) U/L Total Protein (6.5-8.0) g/dL Albumin (3.5-5.0) g/dL Salicylates < 5.0 L (15-30) mg/dL Urine Opiates Screen (Not Detect) Ur Buprenorphine Scrn (Not Detect) ng/mL Ur Oxycodone Screen (Not Detect) ng/mL Urine Methadone Screen (Not Detect) ng/mL Urine Fentanyl Screen (Not Detect) Acetaminophen < 3 (<30) mcg/mL Ur Barbiturates Screen (Not Detect) Ur Phencyclidine Scrn (Not Detect) Ur Amphetamines Screen (Not Detect) U Benzodiazepines Scrn (Not Detect) Urine Cocaine Screen (Not Detect) U Marijuana (THC) Screen (Not Detect) Ethyl Alcohol mg/dL 03/06/25 03/06/25 03/06/25 Range/Units 04:48 04:48 04:48 WBC (4.8-10.8) X10*3/uL RBC Cancelled (4.20-5.50) X10*6/uL Hgb 14.5 Cancelled (12.0-16.0) g/dl Hct 42.5 Cancelled (37.0-47.0) % MCV 91.0 (80.0-98.0) fL MCH (27.0-33.0) pg MCHC (31.0-35.0) g/dl RDW (11.0-16.0) % Plt Count (160-400) X10*3/uL MPV (9.4-12.3) fL Immature Gran % (Auto) (0.0-0.4) % Neut % (Auto) (45-73) % Lymph % (Auto) (20-40) % [place] % (Auto) (2-11) % Eos % (Auto) (0-4) % Baso % (Auto) (0-2) % Lymph # (Auto) (1.2-4.9) X10*3/uL [place] # (Auto) (0.1-1.2) X10*3/uL Eos # (Auto) (0.0-0.4) X10*3/uL Baso # (Auto) (0.0-0.2) X10*3/uL Abs Immat Gran (auto) (0.00-0.03) X10*3/uL Absolute Neuts (auto) (2.0-8.3) x10*3/uL Absolute Nucleated RBC (0.0-0.012) X10*3/uL Nucleated RBC % (auto) (0.0-0.2) /100WBC Sodium (135-145) mmol/L Potassium (3.3-5.1) mmol/L Chloride (96-108) mmol/L Carbon Dioxide (22-29) mmol/L Anion Gap (12-20) BUN (9-16) mg/dL Creatinine (0.5-1.4) mg/dL Estim Creat Clear Calc Estimated GFR Random Glucose (60-115) mg/dL Calcium (8.4-10.2) mg/dL Total Bilirubin (0.0-1.0) mg/dL AST (5-31) U/L ALT (0-31) U/L Alkaline Phosphatase (39-117) U/L Total Protein (6.5-8.0) g/dL Albumin (3.5-5.0) g/dL Salicylates (15-30) mg/dL Urine Opiates Screen (Not Detect) Ur Buprenorphine Scrn (Not Detect) ng/mL Ur Oxycodone Screen (Not Detect) ng/mL Urine Methadone Screen (Not Detect) ng/mL Urine Fentanyl Screen (Not Detect) Acetaminophen (<30) mcg/mL Ur Barbiturates Screen (Not Detect) Ur Phencyclidine Scrn (Not Detect) Ur Amphetamines Screen (Not Detect) U Benzodiazepines Scrn (Not Detect) Urine Cocaine Screen (Not Detect) U Marijuana (THC) Screen (Not Detect) Ethyl Alcohol mg/dL 03/06/25 03/06/25 03/06/25 Range/Units 04:48 04:48 04:48 WBC (4.8-10.8) X10*3/uL RBC (4.20-5.50) X10*6/uL Hgb (12.0-16.0) g/dl Hct (37.0-47.0) % MCV Cancelled (80.0-98.0) fL MCH 31.0 Cancelled (27.0-33.0) pg MCHC 34.1 Cancelled (31.0-35.0) g/dl RDW 12.5 (11.0-16.0) % Plt Count (160-400) X10*3/uL MPV (9.4-12.3) fL Immature Gran % (Auto) (0.0-0.4) % Neut % (Auto) (45-73) % Lymph % (Auto) (20-40) % [place] % (Auto) (2-11) % Eos % (Auto) (0-4) % Baso % (Auto) (0-2) % Lymph # (Auto) (1.2-4.9) X10*3/uL [place] # (Auto) (0.1-1.2) X10*3/uL Eos # (Auto) (0.0-0.4) X10*3/uL Baso # (Auto) (0.0-0.2) X10*3/uL Abs Immat Gran (auto) (0.00-0.03) X10*3/uL Absolute Neuts (auto) (2.0-8.3) x10*3/uL Absolute Nucleated RBC (0.0-0.012) X10*3/uL Nucleated RBC % (auto) (0.0-0.2) /100WBC Sodium (135-145) mmol/L Potassium (3.3-5.1) mmol/L Chloride (96-108) mmol/L Carbon Dioxide (22-29) mmol/L Anion Gap (12-20) BUN (9-16) mg/dL Creatinine (0.5-1.4) mg/dL Estim Creat Clear Calc Estimated GFR Random Glucose (60-115) mg/dL Calcium (8.4-10.2) mg/dL Total Bilirubin (0.0-1.0) mg/dL AST (5-31) U/L ALT (0-31) U/L Alkaline Phosphatase (39-117) U/L Total Protein (6.5-8.0) g/dL Albumin (3.5-5.0) g/dL Salicylates (15-30) mg/dL Urine Opiates Screen (Not Detect) Ur Buprenorphine Scrn (Not Detect) ng/mL Ur Oxycodone Screen (Not Detect) ng/mL Urine Methadone Screen (Not Detect) ng/mL Urine Fentanyl Screen (Not Detect) Acetaminophen (<30) mcg/mL Ur Barbiturates Screen (Not Detect) Ur Phencyclidine Scrn (Not Detect) Ur Amphetamines Screen (Not Detect) U Benzodiazepines Scrn (Not Detect) Urine Cocaine Screen (Not Detect) U Marijuana (THC) Screen (Not Detect) Ethyl Alcohol mg/dL 03/06/25 03/06/25 03/06/25 Range/Units 04:48 04:48 04:48 WBC (4.8-10.8) X10*3/uL RBC (4.20-5.50) X10*6/uL Hgb (12.0-16.0) g/dl Hct (37.0-47.0) % MCV (80.0-98.0) fL MCH (27.0-33.0) pg MCHC (31.0-35.0) g/dl RDW Cancelled (11.0-16.0) % Plt Count 237 Cancelled (160-400) X10*3/uL MPV 10.0 Cancelled (9.4-12.3) fL Immature Gran % (Auto) 0.3 (0.0-0.4) % Neut % (Auto) (45-73) % Lymph % (Auto) (20-40) % [place] % (Auto) (2-11) % Eos % (Auto) (0-4) % Baso % (Auto) (0-2) % Lymph # (Auto) (1.2-4.9) X10*3/uL [place] # (Auto) (0.1-1.2) X10*3/uL Eos # (Auto) (0.0-0.4) X10*3/uL Baso # (Auto) (0.0-0.2) X10*3/uL Abs Immat Gran (auto) (0.00-0.03) X10*3/uL Absolute Neuts (auto) (2.0-8.3) x10*3/uL Absolute Nucleated RBC (0.0-0.012) X10*3/uL Nucleated RBC % (auto) (0.0-0.2) /100WBC Sodium (135-145) mmol/L Potassium (3.3-5.1) mmol/L Chloride (96-108) mmol/L Carbon Dioxide (22-29) mmol/L Anion Gap (12-20) BUN (9-16) mg/dL Creatinine (0.5-1.4) mg/dL Estim Creat Clear Calc Estimated GFR Random Glucose (60-115) mg/dL Calcium (8.4-10.2) mg/dL Total Bilirubin (0.0-1.0) mg/dL AST (5-31) U/L ALT (0-31) U/L Alkaline Phosphatase (39-117) U/L Total Protein (6.5-8.0) g/dL Albumin (3.5-5.0) g/dL Salicylates (15-30) mg/dL Urine Opiates Screen (Not Detect) Ur Buprenorphine Scrn (Not Detect) ng/mL Ur Oxycodone Screen (Not Detect) ng/mL Urine Methadone Screen (Not Detect) ng/mL Urine Fentanyl Screen (Not Detect) Acetaminophen (<30) mcg/mL Ur Barbiturates Screen (Not Detect) Ur Phencyclidine Scrn (Not Detect) Ur Amphetamines Screen (Not Detect) U Benzodiazepines Scrn (Not Detect) Urine Cocaine Screen (Not Detect) U Marijuana (THC) Screen (Not Detect) Ethyl Alcohol mg/dL 03/06/25 03/06/25 03/06/25 Range/Units 04:48 04:48 04:48 WBC (4.8-10.8) X10*3/uL RBC (4.20-5.50) X10*6/uL Hgb (12.0-16.0) g/dl Hct (37.0-47.0) % MCV (80.0-98.0) fL MCH (27.0-33.0) pg MCHC (31.0-35.0) g/dl RDW (11.0-16.0) % Plt Count (160-400) X10*3/uL MPV (9.4-12.3) fL Immature Gran % (Auto) Cancelled (0.0-0.4) % Neut % (Auto) 77.4 H Cancelled (45-73) % Lymph % (Auto) 13.5 L Cancelled (20-40) % [place] % (Auto) 8.0 (2-11) % Eos % (Auto) (0-4) % Baso % (Auto) (0-2) % Lymph # (Auto) (1.2-4.9) X10*3/uL [place] # (Auto) (0.1-1.2) X10*3/uL Eos # (Auto) (0.0-0.4) X10*3/uL Baso # (Auto) (0.0-0.2) X10*3/uL Abs Immat Gran (auto) (0.00-0.03) X10*3/uL Absolute Neuts (auto) (2.0-8.3) x10*3/uL Absolute Nucleated RBC (0.0-0.012) X10*3/uL Nucleated RBC % (auto) (0.0-0.2) /100WBC Sodium (135-145) mmol/L Potassium (3.3-5.1) mmol/L Chloride (96-108) mmol/L Carbon Dioxide (22-29) mmol/L Anion Gap (12-20) BUN (9-16) mg/dL Creatinine (0.5-1.4) mg/dL Estim Creat Clear Calc Estimated GFR Random Glucose (60-115) mg/dL Calcium (8.4-10.2) mg/dL Total Bilirubin (0.0-1.0) mg/dL AST (5-31) U/L ALT (0-31) U/L Alkaline Phosphatase (39-117) U/L Total Protein (6.5-8.0) g/dL Albumin (3.5-5.0) g/dL Salicylates (15-30) mg/dL Urine Opiates Screen (Not Detect) Ur Buprenorphine Scrn (Not Detect) ng/mL Ur Oxycodone Screen (Not Detect) ng/mL Urine Methadone Screen (Not Detect) ng/mL Urine Fentanyl Screen (Not Detect) Acetaminophen (<30) mcg/mL Ur Barbiturates Screen (Not Detect) Ur Phencyclidine Scrn (Not Detect) Ur Amphetamines Screen (Not Detect) U Benzodiazepines Scrn (Not Detect) Urine Cocaine Screen (Not Detect) U Marijuana (THC) Screen (Not Detect) Ethyl Alcohol mg/dL 03/06/25 03/06/25 03/06/25 Range/Units 04:48 04:48 04:48 WBC (4.8-10.8) X10*3/uL RBC (4.20-5.50) X10*6/uL Hgb (12.0-16.0) g/dl Hct (37.0-47.0) % MCV (80.0-98.0) fL MCH (27.0-33.0) pg MCHC (31.0-35.0) g/dl RDW (11.0-16.0) % Plt Count (160-400) X10*3/uL MPV (9.4-12.3) fL Immature Gran % (Auto) (0.0-0.4) % Neut % (Auto) (45-73) % Lymph % (Auto) (20-40) % [place] % (Auto) Cancelled (2-11) % Eos % (Auto) 0.3 Cancelled (0-4) % Baso % (Auto) 0.5 Cancelled (0-2) % Lymph # (Auto) 1.7 (1.2-4.9) X10*3/uL [place] # (Auto) (0.1-1.2) X10*3/uL Eos # (Auto) (0.0-0.4) X10*3/uL Baso # (Auto) (0.0-0.2) X10*3/uL Abs Immat Gran (auto) (0.00-0.03) X10*3/uL Absolute Neuts (auto) (2.0-8.3) x10*3/uL Absolute Nucleated RBC (0.0-0.012) X10*3/uL Nucleated RBC % (auto) (0.0-0.2) /100WBC Sodium (135-145) mmol/L Potassium (3.3-5.1) mmol/L Chloride (96-108) mmol/L Carbon Dioxide (22-29) mmol/L Anion Gap (12-20) BUN (9-16) mg/dL Creatinine (0.5-1.4) mg/dL Estim Creat Clear Calc Estimated GFR Random Glucose (60-115) mg/dL Calcium (8.4-10.2) mg/dL Total Bilirubin (0.0-1.0) mg/dL AST (5-31) U/L ALT (0-31) U/L Alkaline Phosphatase (39-117) U/L Total Protein (6.5-8.0) g/dL Albumin (3.5-5.0) g/dL Salicylates (15-30) mg/dL Urine Opiates Screen (Not Detect) Ur Buprenorphine Scrn (Not Detect) ng/mL Ur Oxycodone Screen (Not Detect) ng/mL Urine Methadone Screen (Not Detect) ng/mL Urine Fentanyl Screen (Not Detect) Acetaminophen (<30) mcg/mL Ur Barbiturates Screen (Not Detect) Ur Phencyclidine Scrn (Not Detect) Ur Amphetamines Screen (Not Detect) U Benzodiazepines Scrn (Not Detect) Urine Cocaine Screen (Not Detect) U Marijuana (THC) Screen (Not Detect) Ethyl Alcohol mg/dL 03/06/25 03/06/25 03/06/25 Range/Units 04:48 04:48 04:48 WBC (4.8-10.8) X10*3/uL RBC (4.20-5.50) X10*6/uL Hgb (12.0-16.0) g/dl Hct (37.0-47.0) % MCV (80.0-98.0) fL MCH (27.0-33.0) pg MCHC (31.0-35.0) g/dl RDW (11.0-16.0) % Plt Count (160-400) X10*3/uL MPV (9.4-12.3) fL Immature Gran % (Auto) (0.0-0.4) % Neut % (Auto) (45-73) % Lymph % (Auto) (20-40) % [place] % (Auto) (2-11) % Eos % (Auto) (0-4) % Baso % (Auto) (0-2) % Lymph # (Auto) Cancelled (1.2-4.9) X10*3/uL [place] # (Auto) 1.0 Cancelled (0.1-1.2) X10*3/uL Eos # (Auto) 0.0 Cancelled (0.0-0.4) X10*3/uL Baso # (Auto) 0.1 (0.0-0.2) X10*3/uL Abs Immat Gran (auto) (0.00-0.03) X10*3/uL Absolute Neuts (auto) (2.0-8.3) x10*3/uL Absolute Nucleated RBC (0.0-0.012) X10*3/uL Nucleated RBC % (auto) (0.0-0.2) /100WBC Sodium (135-145) mmol/L Potassium (3.3-5.1) mmol/L Chloride (96-108) mmol/L Carbon Dioxide (22-29) mmol/L Anion Gap (12-20) BUN (9-16) mg/dL Creatinine (0.5-1.4) mg/dL Estim Creat Clear Calc Estimated GFR Random Glucose (60-115) mg/dL Calcium (8.4-10.2) mg/dL Total Bilirubin (0.0-1.0) mg/dL AST (5-31) U/L ALT (0-31) U/L Alkaline Phosphatase (39-117) U/L Total Protein (6.5-8.0) g/dL Albumin (3.5-5.0) g/dL Salicylates (15-30) mg/dL Urine Opiates Screen (Not Detect) Ur Buprenorphine Scrn (Not Detect) ng/mL Ur Oxycodone Screen (Not Detect) ng/mL Urine Methadone Screen (Not Detect) ng/mL Urine Fentanyl Screen (Not Detect) Acetaminophen (<30) mcg/mL Ur Barbiturates Screen (Not Detect) Ur Phencyclidine Scrn (Not Detect) Ur Amphetamines Screen (Not Detect) U Benzodiazepines Scrn (Not Detect) Urine Cocaine Screen (Not Detect) U Marijuana (THC) Screen (Not Detect) Ethyl Alcohol mg/dL 03/06/25 03/06/25 03/06/25 Range/Units 04:48 04:48 04:48 WBC (4.8-10.8) X10*3/uL RBC (4.20-5.50) X10*6/uL Hgb (12.0-16.0) g/dl Hct (37.0-47.0) % MCV (80.0-98.0) fL MCH (27.0-33.0) pg MCHC (31.0-35.0) g/dl RDW (11.0-16.0) % Plt Count (160-400) X10*3/uL MPV (9.4-12.3) fL Immature Gran % (Auto) (0.0-0.4) % Neut % (Auto) (45-73) % Lymph % (Auto) (20-40) % [place] % (Auto) (2-11) % Eos % (Auto) (0-4) % Baso % (Auto) (0-2) % Lymph # (Auto) (1.2-4.9) X10*3/uL [place] # (Auto) (0.1-1.2) X10*3/uL Eos # (Auto) (0.0-0.4) X10*3/uL Baso # (Auto) Cancelled (0.0-0.2) X10*3/uL Abs Immat Gran (auto) 0.04 H Cancelled (0.00-0.03) X10*3/uL Absolute Neuts (auto) 9.7 H Cancelled (2.0-8.3) x10*3/uL Absolute Nucleated RBC 0.000 (0.0-0.012) X10*3/uL Nucleated RBC % (auto) (0.0-0.2) /100WBC Sodium (135-145) mmol/L Potassium (3.3-5.1) mmol/L Chloride (96-108) mmol/L Carbon Dioxide (22-29) mmol/L Anion Gap (12-20) BUN (9-16) mg/dL Creatinine (0.5-1.4) mg/dL Estim Creat Clear Calc Estimated GFR Random Glucose (60-115) mg/dL Calcium (8.4-10.2) mg/dL Total Bilirubin (0.0-1.0) mg/dL AST (5-31) U/L ALT (0-31) U/L Alkaline Phosphatase (39-117) U/L Total Protein (6.5-8.0) g/dL Albumin (3.5-5.0) g/dL Salicylates (15-30) mg/dL Urine Opiates Screen (Not Detect) Ur Buprenorphine Scrn (Not Detect) ng/mL Ur Oxycodone Screen (Not Detect) ng/mL Urine Methadone Screen (Not Detect) ng/mL Urine Fentanyl Screen (Not Detect) Acetaminophen (<30) mcg/mL Ur Barbiturates Screen (Not Detect) Ur Phencyclidine Scrn (Not Detect) Ur Amphetamines Screen (Not Detect) U Benzodiazepines Scrn (Not Detect) Urine Cocaine Screen (Not Detect) U Marijuana (THC) Screen (Not Detect) Ethyl Alcohol mg/dL 03/06/25 03/06/25 03/06/25 Range/Units 04:48 04:48 04:48 WBC (4.8-10.8) X10*3/uL RBC (4.20-5.50) X10*6/uL Hgb (12.0-16.0) g/dl Hct (37.0-47.0) % MCV (80.0-98.0) fL MCH (27.0-33.0) pg MCHC (31.0-35.0) g/dl RDW (11.0-16.0) % Plt Count (160-400) X10*3/uL MPV (9.4-12.3) fL Immature Gran % (Auto) (0.0-0.4) % Neut % (Auto) (45-73) % Lymph % (Auto) (20-40) % [place] % (Auto) (2-11) % Eos % (Auto) (0-4) % Baso % (Auto) (0-2) % Lymph # (Auto) (1.2-4.9) X10*3/uL [place] # (Auto) (0.1-1.2) X10*3/uL Eos # (Auto) (0.0-0.4) X10*3/uL Baso # (Auto) (0.0-0.2) X10*3/uL Abs Immat Gran (auto) (0.00-0.03) X10*3/uL Absolute Neuts (auto) (2.0-8.3) x10*3/uL Absolute Nucleated RBC Cancelled (0.0-0.012) X10*3/uL Nucleated RBC % (auto) 0.0 Cancelled (0.0-0.2) /100WBC Sodium 138 Cancelled (135-145) mmol/L Potassium 3.9 (3.3-5.1) mmol/L Chloride (96-108) mmol/L Carbon Dioxide (22-29) mmol/L Anion Gap (12-20) BUN (9-16) mg/dL Creatinine (0.5-1.4) mg/dL Estim Creat Clear Calc Estimated GFR Random Glucose (60-115) mg/dL Calcium (8.4-10.2) mg/dL Total Bilirubin (0.0-1.0) mg/dL AST (5-31) U/L ALT (0-31) U/L Alkaline Phosphatase (39-117) U/L Total Protein (6.5-8.0) g/dL Albumin (3.5-5.0) g/dL Salicylates (15-30) mg/dL Urine Opiates Screen (Not Detect) Ur Buprenorphine Scrn (Not Detect) ng/mL Ur Oxycodone Screen (Not Detect) ng/mL Urine Methadone Screen (Not Detect) ng/mL Urine Fentanyl Screen (Not Detect) Acetaminophen (<30) mcg/mL Ur Barbiturates Screen (Not Detect) Ur Phencyclidine Scrn (Not Detect) Ur Amphetamines Screen (Not Detect) U Benzodiazepines Scrn (Not Detect) Urine Cocaine Screen (Not Detect) U Marijuana (THC) Screen (Not Detect) Ethyl Alcohol mg/dL 03/06/25 03/06/25 03/06/25 Range/Units 04:48 04:48 04:48 WBC (4.8-10.8) X10*3/uL RBC (4.20-5.50) X10*6/uL Hgb (12.0-16.0) g/dl Hct (37.0-47.0) % MCV (80.0-98.0) fL MCH (27.0-33.0) pg MCHC (31.0-35.0) g/dl RDW (11.0-16.0) % Plt Count (160-400) X10*3/uL MPV (9.4-12.3) fL Immature Gran % (Auto) (0.0-0.4) % Neut % (Auto) (45-73) % Lymph % (Auto) (20-40) % [place] % (Auto) (2-11) % Eos % (Auto) (0-4) % Baso % (Auto) (0-2) % Lymph # (Auto) (1.2-4.9) X10*3/uL [place] # (Auto) (0.1-1.2) X10*3/uL Eos # (Auto) (0.0-0.4) X10*3/uL Baso # (Auto) (0.0-0.2) X10*3/uL Abs Immat Gran (auto) (0.00-0.03) X10*3/uL Absolute Neuts (auto) (2.0-8.3) x10*3/uL Absolute Nucleated RBC (0.0-0.012) X10*3/uL Nucleated RBC % (auto) (0.0-0.2) /100WBC Sodium (135-145) mmol/L Potassium Cancelled (3.3-5.1) mmol/L Chloride 102 Cancelled (96-108) mmol/L Carbon Dioxide 26 Cancelled (22-29) mmol/L Anion Gap 14 (12-20) BUN (9-16) mg/dL Creatinine (0.5-1.4) mg/dL Estim Creat Clear Calc Estimated GFR Random Glucose (60-115) mg/dL Calcium (8.4-10.2) mg/dL Total Bilirubin (0.0-1.0) mg/dL AST (5-31) U/L ALT (0-31) U/L Alkaline Phosphatase (39-117) U/L Total Protein (6.5-8.0) g/dL Albumin (3.5-5.0) g/dL Salicylates (15-30) mg/dL Urine Opiates Screen (Not Detect) Ur Buprenorphine Scrn (Not Detect) ng/mL Ur Oxycodone Screen (Not Detect) ng/mL Urine Methadone Screen (Not Detect) ng/mL Urine Fentanyl Screen (Not Detect) Acetaminophen (<30) mcg/mL Ur Barbiturates Screen (Not Detect) Ur Phencyclidine Scrn (Not Detect) Ur Amphetamines Screen (Not Detect) U Benzodiazepines Scrn (Not Detect) Urine Cocaine Screen (Not Detect) U Marijuana (THC) Screen (Not Detect) Ethyl Alcohol mg/dL 03/06/25 03/06/25 03/06/25 Range/Units 04:48 04:48 04:48 WBC (4.8-10.8) X10*3/uL RBC (4.20-5.50) X10*6/uL Hgb (12.0-16.0) g/dl Hct (37.0-47.0) % MCV (80.0-98.0) fL MCH (27.0-33.0) pg MCHC (31.0-35.0) g/dl RDW (11.0-16.0) % Plt Count (160-400) X10*3/uL MPV (9.4-12.3) fL Immature Gran % (Auto) (0.0-0.4) % Neut % (Auto) (45-73) % Lymph % (Auto) (20-40) % [place] % (Auto) (2-11) % Eos % (Auto) (0-4) % Baso % (Auto) (0-2) % Lymph # (Auto) (1.2-4.9) X10*3/uL [place] # (Auto) (0.1-1.2) X10*3/uL Eos # (Auto) (0.0-0.4) X10*3/uL Baso # (Auto) (0.0-0.2) X10*3/uL Abs Immat Gran (auto) (0.00-0.03) X10*3/uL Absolute Neuts (auto) (2.0-8.3) x10*3/uL Absolute Nucleated RBC (0.0-0.012) X10*3/uL Nucleated RBC % (auto) (0.0-0.2) /100WBC Sodium (135-145) mmol/L Potassium (3.3-5.1) mmol/L Chloride (96-108) mmol/L Carbon Dioxide (22-29) mmol/L Anion Gap Cancelled (12-20) BUN 18 H Cancelled (9-16) mg/dL Creatinine 0.60 Cancelled (0.5-1.4) mg/dL Estim Creat Clear Calc 128.1 Estimated GFR Random Glucose (60-115) mg/dL Calcium (8.4-10.2) mg/dL Total Bilirubin (0.0-1.0) mg/dL AST (5-31) U/L ALT (0-31) U/L Alkaline Phosphatase (39-117) U/L Total Protein (6.5-8.0) g/dL Albumin (3.5-5.0) g/dL Salicylates (15-30) mg/dL Urine Opiates Screen (Not Detect) Ur Buprenorphine Scrn (Not Detect) ng/mL Ur Oxycodone Screen (Not Detect) ng/mL Urine Methadone Screen (Not Detect) ng/mL Urine Fentanyl Screen (Not Detect) Acetaminophen (<30) mcg/mL Ur Barbiturates Screen (Not Detect) Ur Phencyclidine Scrn (Not Detect) Ur Amphetamines Screen (Not Detect) U Benzodiazepines Scrn (Not Detect) Urine Cocaine Screen (Not Detect) U Marijuana (THC) Screen (Not Detect) Ethyl Alcohol mg/dL 03/06/25 03/06/25 03/06/25 Range/Units 04:48 04:48 04:48 WBC (4.8-10.8) X10*3/uL RBC (4.20-5.50) X10*6/uL Hgb (12.0-16.0) g/dl Hct (37.0-47.0) % MCV (80.0-98.0) fL MCH (27.0-33.0) pg MCHC (31.0-35.0) g/dl RDW (11.0-16.0) % Plt Count (160-400) X10*3/uL MPV (9.4-12.3) fL Immature Gran % (Auto) (0.0-0.4) % Neut % (Auto) (45-73) % Lymph % (Auto) (20-40) % [place] % (Auto) (2-11) % Eos % (Auto) (0-4) % Baso % (Auto) (0-2) % Lymph # (Auto) (1.2-4.9) X10*3/uL [place] # (Auto) (0.1-1.2) X10*3/uL Eos # (Auto) (0.0-0.4) X10*3/uL Baso # (Auto) (0.0-0.2) X10*3/uL Abs Immat Gran (auto) (0.00-0.03) X10*3/uL Absolute Neuts (auto) (2.0-8.3) x10*3/uL Absolute Nucleated RBC (0.0-0.012) X10*3/uL Nucleated RBC % (auto) (0.0-0.2) /100WBC Sodium (135-145) mmol/L Potassium (3.3-5.1) mmol/L Chloride (96-108) mmol/L Carbon Dioxide (22-29) mmol/L Anion Gap (12-20) BUN (9-16) mg/dL Creatinine (0.5-1.4) mg/dL Estim Creat Clear Calc Cancelled Estimated GFR > 60 Cancelled Random Glucose 82 Cancelled (60-115) mg/dL Calcium 9.2 (8.4-10.2) mg/dL Total Bilirubin (0.0-1.0) mg/dL AST (5-31) U/L ALT (0-31) U/L Alkaline Phosphatase (39-117) U/L Total Protein (6.5-8.0) g/dL Albumin (3.5-5.0) g/dL Salicylates (15-30) mg/dL Urine Opiates Screen (Not Detect) Ur Buprenorphine Scrn (Not Detect) ng/mL Ur Oxycodone Screen (Not Detect) ng/mL Urine Methadone Screen (Not Detect) ng/mL Urine Fentanyl Screen (Not Detect) Acetaminophen (<30) mcg/mL Ur Barbiturates Screen (Not Detect) Ur Phencyclidine Scrn (Not Detect) Ur Amphetamines Screen (Not Detect) U Benzodiazepines Scrn (Not Detect) Urine Cocaine Screen (Not Detect) U Marijuana (THC) Screen (Not Detect) Ethyl Alcohol mg/dL 03/06/25 03/06/25 03/06/25 Range/Units 04:48 04:48 04:48 WBC (4.8-10.8) X10*3/uL RBC (4.20-5.50) X10*6/uL Hgb (12.0-16.0) g/dl Hct (37.0-47.0) % MCV (80.0-98.0) fL MCH (27.0-33.0) pg MCHC (31.0-35.0) g/dl RDW (11.0-16.0) % Plt Count (160-400) X10*3/uL MPV (9.4-12.3) fL Immature Gran % (Auto) (0.0-0.4) % Neut % (Auto) (45-73) % Lymph % (Auto) (20-40) % [place] % (Auto) (2-11) % Eos % (Auto) (0-4) % Baso % (Auto) (0-2) % Lymph # (Auto) (1.2-4.9) X10*3/uL [place] # (Auto) (0.1-1.2) X10*3/uL Eos # (Auto) (0.0-0.4) X10*3/uL Baso # (Auto) (0.0-0.2) X10*3/uL Abs Immat Gran (auto) (0.00-0.03) X10*3/uL Absolute Neuts (auto) (2.0-8.3) x10*3/uL Absolute Nucleated RBC (0.0-0.012) X10*3/uL Nucleated RBC % (auto) (0.0-0.2) /100WBC Sodium (135-145) mmol/L Potassium (3.3-5.1) mmol/L Chloride (96-108) mmol/L Carbon Dioxide (22-29) mmol/L Anion Gap (12-20) BUN (9-16) mg/dL Creatinine (0.5-1.4) mg/dL Estim Creat Clear Calc Estimated GFR Random Glucose (60-115) mg/dL Calcium Cancelled (8.4-10.2) mg/dL Total Bilirubin 1.0 Cancelled (0.0-1.0) mg/dL AST 33 H Cancelled (5-31) U/L ALT 39 H (0-31) U/L Alkaline Phosphatase (39-117) U/L Total Protein (6.5-8.0) g/dL Albumin (3.5-5.0) g/dL Salicylates (15-30) mg/dL Urine Opiates Screen (Not Detect) Ur Buprenorphine Scrn (Not Detect) ng/mL Ur Oxycodone Screen (Not Detect) ng/mL Urine Methadone Screen (Not Detect) ng/mL Urine Fentanyl Screen (Not Detect) Acetaminophen (<30) mcg/mL Ur Barbiturates Screen (Not Detect) Ur Phencyclidine Scrn (Not Detect) Ur Amphetamines Screen (Not Detect) U Benzodiazepines Scrn (Not Detect) Urine Cocaine Screen (Not Detect) U Marijuana (THC) Screen (Not Detect) Ethyl Alcohol mg/dL 03/06/25 03/06/25 03/06/25 Range/Units 04:48 04:48 04:48 WBC (4.8-10.8) X10*3/uL RBC (4.20-5.50) X10*6/uL Hgb (12.0-16.0) g/dl Hct (37.0-47.0) % MCV (80.0-98.0) fL MCH (27.0-33.0) pg MCHC (31.0-35.0) g/dl RDW (11.0-16.0) % Plt Count (160-400) X10*3/uL MPV (9.4-12.3) fL Immature Gran % (Auto) (0.0-0.4) % Neut % (Auto) (45-73) % Lymph % (Auto) (20-40) % [place] % (Auto) (2-11) % Eos % (Auto) (0-4) % Baso % (Auto) (0-2) % Lymph # (Auto) (1.2-4.9) X10*3/uL [place] # (Auto) (0.1-1.2) X10*3/uL Eos # (Auto) (0.0-0.4) X10*3/uL Baso # (Auto) (0.0-0.2) X10*3/uL Abs Immat Gran (auto) (0.00-0.03) X10*3/uL Absolute Neuts (auto) (2.0-8.3) x10*3/uL Absolute Nucleated RBC (0.0-0.012) X10*3/uL Nucleated RBC % (auto) (0.0-0.2) /100WBC Sodium (135-145) mmol/L Potassium (3.3-5.1) mmol/L Chloride (96-108) mmol/L Carbon Dioxide (22-29) mmol/L Anion Gap (12-20) BUN (9-16) mg/dL Creatinine (0.5-1.4) mg/dL Estim Creat Clear Calc Estimated GFR Random Glucose (60-115) mg/dL Calcium (8.4-10.2) mg/dL Total Bilirubin (0.0-1.0) mg/dL AST (5-31) U/L ALT Cancelled (0-31) U/L Alkaline Phosphatase 81 Cancelled (39-117) U/L Total Protein 7.2 Cancelled (6.5-8.0) g/dL Albumin 4.5 (3.5-5.0) g/dL Salicylates (15-30) mg/dL Urine Opiates Screen (Not Detect) Ur Buprenorphine Scrn (Not Detect) ng/mL Ur Oxycodone Screen (Not Detect) ng/mL Urine Methadone Screen (Not Detect) ng/mL Urine Fentanyl Screen (Not Detect) Acetaminophen (<30) mcg/mL Ur Barbiturates Screen (Not Detect) Ur Phencyclidine Scrn (Not Detect) Ur Amphetamines Screen (Not Detect) U Benzodiazepines Scrn (Not Detect) Urine Cocaine Screen (Not Detect) U Marijuana (THC) Screen (Not Detect) Ethyl Alcohol mg/dL 03/06/25 03/06/25 Range/Units 04:48 05:00 WBC (4.8-10.8) X10*3/uL RBC (4.20-5.50) X10*6/uL Hgb (12.0-16.0) g/dl Hct (37.0-47.0) % MCV (80.0-98.0) fL MCH (27.0-33.0) pg MCHC (31.0-35.0) g/dl RDW (11.0-16.0) % Plt Count (160-400) X10*3/uL MPV (9.4-12.3) fL Immature Gran % (Auto) (0.0-0.4) % Neut % (Auto) (45-73) % Lymph % (Auto) (20-40) % [place] % (Auto) (2-11) % Eos % (Auto) (0-4) % Baso % (Auto) (0-2) % Lymph # (Auto) (1.2-4.9) X10*3/uL [place] # (Auto) (0.1-1.2) X10*3/uL Eos # (Auto) (0.0-0.4) X10*3/uL Baso # (Auto) (0.0-0.2) X10*3/uL Abs Immat Gran (auto) (0.00-0.03) X10*3/uL Absolute Neuts (auto) (2.0-8.3) x10*3/uL Absolute Nucleated RBC (0.0-0.012) X10*3/uL Nucleated RBC % (auto) (0.0-0.2) /100WBC Sodium (135-145) mmol/L Potassium (3.3-5.1) mmol/L Chloride (96-108) mmol/L Carbon Dioxide (22-29) mmol/L Anion Gap (12-20) BUN (9-16) mg/dL Creatinine (0.5-1.4) mg/dL Estim Creat Clear Calc Estimated GFR Random Glucose (60-115) mg/dL Calcium (8.4-10.2) mg/dL Total Bilirubin (0.0-1.0) mg/dL AST (5-31) U/L ALT (0-31) U/L Alkaline Phosphatase (39-117) U/L Total Protein (6.5-8.0) g/dL Albumin Cancelled (3.5-5.0) g/dL Salicylates (15-30) mg/dL Urine Opiates Screen Not Detected (Not Detect) Ur Buprenorphine Scrn Not Detected (Not Detect) ng/mL Ur Oxycodone Screen Not Detected (Not Detect) ng/mL Urine Methadone Screen Not Detected (Not Detect) ng/mL Urine Fentanyl Screen Not Detected (Not Detect) Acetaminophen (<30) mcg/mL Ur Barbiturates Screen Not Detected (Not Detect) Ur Phencyclidine Scrn Not Detected (Not Detect) Ur Amphetamines Screen Not Detected (Not Detect) U Benzodiazepines Scrn Not Detected (Not Detect) Urine Cocaine Screen POSITIVE H (Not Detect) U Marijuana (THC) Screen Not Detected (Not Detect) Ethyl Alcohol < 10 mg/dL Critical Care Time Critical Care Time Critical Care Time: Yes Total Critical Care Time: 35 Attestation: I have personally provided critical care time. Time includes review of lab data, radiology results, discussion with consultants, and monitoring for potential decompensation. Intervention performed as documented. Discharge Plan Discharge Clinical Impression: Bipolar 1 disorder Prescriptions: No Action trazodone 50 mg Tablet 50 mg PO BEDTIME MRX1 PRN (Reason: Insomnia) Qty: 30 0RF hydroxyzine HCl 25 mg Tablet 25 mg PO Q6H PRN (Reason: mild anxiety) Qty: 30 0RF aripiprazole [Abilify] 5 mg Tablet 5 mg PO DAILY Qty: 30 0RF Interventions: [place]-Suicide Risk Severity Scale Last Done: 03/06/25 05:08 Print Language: Persian
--- NOTE | 2025-03-06 08:12 | PC.NURSE ---
obtained report from brianda, patient presently sleeping, rr equal/non labored, pt to be seen/evaluated by care team, plan of care ongoing
[2025-03-06 10:08] VITALS: BP 109/58; PULSE 80; RESP 16; O2SAT 96
[2025-03-06 11:59] VITALS: BP 109/58; PULSE 80; RESP 16; TEMP 36.2; O2SAT 96
== END 2025-03-06 12:13 | disposition home or self-care (01) ==
PROVIDERS: Emergency Provider Emergency Medicine
DX: F31.9 Bipolar disorder, unspecified (principal); R45.851 Suicidal ideations; F14.90 Cocaine use, unspecified, uncomplicated; Z51.81 Encounter for therapeutic drug level monitoring; Z79.899 Other long term (current) drug therapy
CPT/HCPCS: 36415; 80053; 80143; 80179; 80307; 85025; 99285; S9485

== ENCOUNTER 2025-03-06 23:35 | Emergency (ER) | payer MEDICAID, SELFPAY ==
[2025-03-06 23:39] VITALS: BP 110/69; PULSE 69; RESP 20; TEMP 35.9; O2SAT 99; BMI 15.1
--- OUTSIDE RECORDS SUMMARY | 2025-03-06 23:58 | XMS_ITS | Clinical Summary ---
Author Organization [facility] Prior to 08/30/24 Address [address] [place] [address] Care Team Providers Care Copy Clerk Name Role Phone Unavailable Primary Care Provider [...] 0 Active haloperidol (HALDOL) 10 MG tabletIndications:MD Praish Take 1 tablet (10 mg total) by [...] Advance Directives For more information, please contact: [phone] Documents on File Type Date Recorded Patient Sap Senior Developer Expl anation Advance Directive and Living Will [...]
--- OUTSIDE RECORDS SUMMARY | 2025-03-06 23:58 | XMS_ITS | Encounter Summary ---
Author Organization [facility] Address [address] [place] [address] Phone Care Team Providers Care Flux Mixer Name Role Phone Provider, No Primary Care Provider Unavailabl e Encounter Details Date Type Department Care Team (Late st Contact Info) Description 01/14/2025 External Contact EXTERNAL LOCATION [address] [place] [phone] Vince, Rosa Provider Social History Tobacco [...] AM EDT Emergency Discharge Alert Powered by [email or web address] Patient Name: WAGNER MONTEJO : [id number] Patient Patient MR#: [id number] Source Facility: [facility] ADM-ClinicianName: UNKNOWN UNKNOWNCode: UNKNOWNAA: NPI ATT-ClinicianName: UNKNOWN UNKNOWNCode: UNKNOWNAA: AdmitDateTime: 2025-01-14 06:58:00 DischargeDateTime: 2025-01-14 10:49:00 Admit Reason Code: SI AllergenTypeIDDescSeverityCodeReactionCodeIDDate No Allergy Found DiagnosisCode[facility].851Suicidal ideations documented in this encounter Plan of Treatment Not on file documented as of this encounter Visit Diagnoses Not on filedocumented in this encounter Additional Health Concerns Infection Onset Date Last Indicated Resolved Time Respiratory Rule-Out 02/16/2025 02/16/2025 025 2:44 AM EST documented as of this encounter Care Teams Flux Mixer Relationship Specialty Start Date End Date Provider, No PCP - General 12/01/24 documented as of this encounter
--- OUTSIDE RECORDS SUMMARY | 2025-03-06 23:58 | XMS_ITS | Clinical Summary ---
Author Organization [facility], [place], operated by [facility] Address [address] [place] [address] Phone Care Team Providers Care Casting Wheel Operator Helper Name Role Phone Provider, No Primary Care [...] Dental abrasion 06/17/2024 Suicidal ideation 06/16/2024 Schizophrenia ([facility]) 06/16/2024 Cocaine abuse 10/10/2022 Resolved Problems Problem Noted Date Diagnosed Date Resolved Date Trauma and stressor-related disorder 08/02/2023 05/07/2024 Suicidal ideations 05/29/2022 Major depression, recurrent 10/11/2021 05/07/2024 Substance induced mood disorder ([facility]) 06/11/1905/07/2024 Affective psychosis, bipolar ([facility]) 01/03/2019 05/07/2024 Encounters Date Type Department Care Team Description 02/24/2025 10:47 AM EST - 02/24/2025 11:55 AM EST Emergency [facility] ADULT EMERGENCY DEPARTMENT [address] [place] [address] Ariane Marcus MD Depression, unspecified depression type (Primary Dx) Discharge Disposition: DISCHARGED TO HOME/ASSISTED LIVING/SELF CARE (ROUTINE DISCHARGE) 02/24/2025 Travel 02/21/2025 10:37 PM EST - 02/22/2025 5:55 AM [facility] ADULT EMERGENCY DEPARTMENT [address] [place] [address] Reshma Hernandez MD Unhappiness (Primary Dx) Discharge Disposition: DISCHARGED TO HOME/ASSISTED LIVING/SELF CARE (ROUTINE DISCHARGE) 02/21/2025 Travel 02/17/2025 2:17 PM EST - 02/17/2025 3:08 PM [facility] ADULT EMERGENCY DEPARTMENT [address] [place], [place] [id number] Sherita Fontana MD Paronychia of finger of right hand (Primary Dx) Discharge Disposition: DISCHARGED TO HOME/ASSISTED LIVING/SELF CARE (ROUTINE DISCHARGE) 02/17/2025 Travel 02/16/2025 2:30 AM EST - 02/16/2025 11:59 PM [facility] ADULT EMERGENCY DEPARTMENT [address] [place] [address] 02/15/2025 11:12 PM EST - 02/16/2025 9:25 AM [facility] ADULT EMERGENCY DEPARTMENT [address] [place] [address] Almita Sierra DO Asher, Shellie, MD Suicidal ideation (Primary Dx) Discharge Disposition: DISCHARGED/TRANSFERRE D TO A PSYCHIATRIC HOSPITAL OR PSYCHIATRIC DISTINCT PART UNIT OF A HOSPITAL 02/12/2025 External Contact EXTERNAL LOCATION [address] [place] [address] Hixny, Default Provider 02/09/2025 External Contact EXTERNAL LOCATION [address] [place] [address] Hixny, Default Provider 02/09/2025 - 02/09/2025 2:18 AM [facility] ADULT EMERGENCY DEPARTMENT [address] [place] [phone] Fred Booth MD Sadness (Primary Dx); Dental infection Discharge Disposition: DISCHARGED TO HOME/ASSISTED LIVING/SELF CARE (ROUTINE DISCHARGE) 02/08/2025 7:40 AM EST - 02/08/2025 12:30 PM [facility] ADULT EMERGENCY DEPARTMENT [address] [place] [address] Goldy Logan MD Stimulant use disorder (Primary Dx); Behavioral and emotional disorders with onset usually occurring in childhood and adolescence Discharge Disposition: DISCHARGED TO HOME/ASSISTED LIVING/SELF CARE (ROUTINE DISCHARGE) 02/08/2025 Travel 02/06/2025 10:49 AM EST - 02/06/2025 11:52 AM [facility] ADULT EMERGENCY DEPARTMENT [address] [place] [address] Jerry Pompa MD Pain, dental (Primary Dx) Discharge Disposition: DISCHARGED TO HOME/ASSISTED LIVING/SELF CARE (ROUTINE DISCHARGE) 01/23/2025 11:29 PM EDT - 01/26/2025 12:30 PM EDT [facility] ADULT EMERGENCY DEPARTMENT [address] [place] [address] Almita Sierra DO Cordi, Heidi, MD Pinto, Dorcas, MD Gillespie, Geoffry, MD Waxman, Michael, MD Bracey, Alexander, MD Brodie, Amy Londono MD Cocaine use disorder, severe ([facility]) (Primary Dx); Substance use disorder Discharge Disposition: DISCHARGED TO HOME/ASSISTED LIVING/SELF CARE (ROUTINE DISCHARGE) 01/23/2025 Travel 01/14/2025 External Contact EXTERNAL LOCATION [address] [place] [phone] Hixny, Default Provider 01/13/2025 External Contact EXTERNAL LOCATION [address] [place] [phone] Hixny, Default Provider 01/12/2025 Travel 01/10/2025 4:50 AM EDT - 01/12/2025 11:50 AM EDT [facility] ADULT EMERGENCY DEPARTMENT [address] [place] [address] Grajny, Mansi, Almita Kitchen DO Aly, Iman, MD Palmieri, Timothy, MD Snyder, Howard, MD Chow, Yvonne, MD Hogan, Kathryn A, MD Suicidal ideations (Primary Dx) Discharge Disposition: DISCHARGED TO HOME/ASSISTED LIVING/SELF CARE (ROUTINE DISCHARGE) 01/04/2025 4:19 AM EDT - 01/04/2025 10:10 AM EDT [facility] ADULT EMERGENCY DEPARTMENT [address] [place] [address] Denisha Ribeiro MD Vines, Spenser, DO Suicidal ideation (Primary Dx) Discharge Disposition: DISCHARGED TO HOME/ASSISTED LIVING/SELF CARE (ROUTINE DISCHARGE) 12/28/2024 4:59 AM EDT - 12/28/2024 12:32 PM EDT [facility] ADULT EMERGENCY DEPARTMENT [address] [place] [address] Radha Mckoy MD Waldrop, Michael, MD Encounter for psychological evaluation (Primary Dx) Discharge Disposition: DISCHARGED TO HOME/ASSISTED LIVING/SELF CARE (ROUTINE DISCHARGE) 12/22/2024 1:37 AM EDT - 12/22/2024 6:36 AM EDT [facility] ADULT EMERGENCY DEPARTMENT [address] [place] [address] Hua Masterson MD Suicidal thoughts (Primary Dx) Discharge Disposition: DISCHARGED TO HOME/ASSISTED LIVING/SELF CARE (ROUTINE DISCHARGE) 12/11/2024 External Contact EXTERNAL LOCATION [address] [place] [phone] Vince, [facility] Provider 12/08/2024 5:33 AM EDT - 12/09/2024 10:00 AM EDT [facility] ADULT EMERGENCY DEPARTMENT [address] [place] [address] Denisha Ribeiro MD Cordi, Heidi, MD Noonan, Jessica, MD Zhang, Wen Rong, MD Thibodeau, Lorraine, MD Sadness (Primary Dx) Discharge Disposition: DISCHARGED TO HOME/ASSISTED LIVING/SELF CARE (ROUTINE DISCHARGE) 12/08/2024 Travel 12/07/2024 2:30 AM EDT - 12/07/2024 12:18 PM EDT Emergency [facility] ADULT EMERGENCY DEPARTMENT [address] [place] [address] Denisha Ribeiro MD Pauze, Denis, [...] 12 lead (02/16/2025 2:30 AM EST) Pathologist [facility] Diagnosis Class Borderline Abnormal GE MUSE Ventricular Rate 61 BPM GE MUSE Atrial Rate 61 BPM GE MUSE PA Interval 174 ms GE MUSE QRS DURATION 110 ms GE MUSE QT Interval 444 ms GE MUSE QTC CALCULATION (BAZETT) 446 ms GE MUSE P [place] 83 degrees GE MUSE R [place] 77 degrees GE MUSE T Wave [place] 67 degrees GE MUSE 02/16/2025 2:29 AM [...] FOR LVH, MAY BE NORMAL VARIANT ( Wilson product) BORDERLINE ECG Confirmed by Ricardo Gomez ([id number]) on 02/17/2025 9:56:37 AM us Trevor ZIMMERMAN ECG ORDERABLES Final Resu lt GE MUSE * Rapid Covid-19 (POC) (02/16/2025 2:24 AM EST) Only the most recent of2 resultswithin the time period is included. Pathologist [facility] Rapid Covid 19 Negative Negative, Invalid 02/16/2025 2:44 AM [facility] Comment:The [facility] ID NOW COVID-19 was designated to detect the causative agent of COVID-19. [employer] was granted Emergency Use Authorization (EUA) from the FDA to distribute this test kit. Negative results do not preclude SARS-CoV-2 infection and should not be used as the sole basis for patient management decisions. Swab Both anterior nares / Unknown 02/16/2025 2:24 AM EST 02/16/2025 2:44 AM EST [facility] LABORATORY - 02/16/2025 2:44 AM EST Performed at:[address] [place] [address] Almita Sierra DO LAB POINT OF CARE T EST DOCKED DEVICE UNSOLICITED RESULTS Final Result [facility] [address] [place] [address], * (ABNORMAL) Drug Screen Panel, Urine (02/16/2025 2:11 AM EST) Only the most recent of2 resultswithin the time period is included. [facility] Amphetamines, Urine Negative Negative 02/16/2025 3:04 AM [facility] Comment: I-Negative THRESHOLD 500 NG/ML Barbiturates, Urine Negative Negative 02/16/2025 3:04 AM [facility] Comment: I-Negative THRESHOLD 200 NG/ML Cocaine Metabolite, Urine Positive(A) Negative 02/16/2025 3:04 AM [facility] Comment: I-Positive THRESHOLD 150 NG/ML PRESUMPTIVE POSITIVE BY SCREENING METHOD. THIS RESULT HAS NOT BEEN CONFIRMED BY A CONFIRMATORY TECHNIQUE. Opiates, Urine Negative Negative 02/16/2025 3:04 AM [facility] Comment: I-Negative THRESHOLD 200 NG/ML Benzodiazepines, Urine Negative Negative 02/16/2025 3:04 AM [facility] Comment: I-Negative THRESHOLD 200 NG/ML Methadone, Urine Negative Negative 02/17/20 3:04 AM EST [facility] Comment: I-Negative THRESHOLD 300 NG/ML Phencyclidine (PCP), Urine Negative Negative 02/16/2025 3:04 AM [facility] Comment: I-Negative THRESHOLD 25 NG/ML Cannabinoids, Urine Negative Negative 02/16/2025 3:04 AM [facility] Comment: I-Negative THRESHOLD 50 NG/ML Urine Urine specimen obtained by clean catch procedure / Unknown Non-blood Collection / Unknown 02/16/2025 2:11 AM EST 02/16/2025 2:25 AM EST us Trevor ZIMMERMAN LAB URINE ORDERABLES Final Result [facility] [address] [place] [address], [place] * Urinalysis With Reflex To Urine Culture (02/16/2025 2:11 AM EST) Only the most recent of3 resultswithin the time period is included. Color Yellow Yellow, Dark Yellow 02/16/2025 2:33 AM [facility] Clarity Clear Clear 02/16/2025 2:33 AM [facility] Leukocytes Negative Negative 02/16/2025 2:33 AM [facility] Nitrite Negative Negative 02/16/2025 2:33 AM [facility] Blood Negative Negative, NEG 02/16/2025 2:33 AM [facility] Glucose Negative Negative 02/16/2025 2:33 AM [facility] Ketones Negative Negative 02/16/2025 2:33 AM [facility] pH 6.0 5.0 - 8.0 pH 02/16/2025 2:33 AM [facility] Specific May, UA 1.023 1.002 - 1.029 02/16/2025 2:33 AM [facility] Bilirubin Negative Negative, NEG 02/16/2025 2:33 AM [facility] Urobilinogen 0.2 0.2, 1.0 mg/dL 02/16/2025 2:33 AM [facility] Protein Negative Negative 02/16/2025 2:33 AM [facility] Urine Urine specimen obtained by clean catch procedure / Unknown Non-blood Collection / Unknown 02/16/2025 2:11 AM EST 02/16/2025 2:25 AM EST us Trevor ZIMMERMAN LAB URINE ORDERABLES Final Result [facility] [address] [place] [address], [place] * (ABNORMAL) Automated Differential (02/16/2025 2:08 AM EST) Only the most recent of3 resultswithin the time period is included. Neutrophils % 51.5 41.0 - 67.0 % 02/16/2025 3:08 AM [facility] Lymphocytes % 33.4 28.0 - 42.0 % 02/16/2025 3:08 AM [facility] Monocytes % 10.2(H) 4.0 - 9.0 % 02/16/2025 3:08 AM [facility] Eosinophils % 3.8 0.0 - 5.0 % 02/16/2025 3:08 AM [facility] Basophils % 0.8 0.0 - 1.0 % 02/16/2025 3:08 AM [facility] Immature Granulocytes % 0.3 0.0 - 1.0 % 02/16/2025 3:08 AM [facility] Absolute Neutrophils 5.12 1.60 - 6.20 10*3/uL 02/16/2025 3:08 AM [facility] Absolute Lymphocytes 3.33 1.10 - 3.90 10*3/uL 02/16/2025 3:08 AM [facility] Absolute Monocytes 1.02(H) 0.20 - 0.80 10*3/uL 02/16/2025 3:08 AM [facility] Absolute Eosinophils 0.38 0.00 - 0.50 10*3/uL 02/16/2025 3:08 AM [facility] Absolute Basophils 0.08 0.00 - 0.10 10*3/uL 02/16/2025 3:08 AM [facility] Absolute Immature Granulocytes 0.03 0.00 - 0.10 10*3/uL 02/16/2025 3:08 AM [facility] Blood Venous blood / Unknown Venipuncture / Unknown 02/16/2025 2:08 AM EST 02/16/2025 2:27 AM EST us Trevor ZIMMERMAN LAB BLOOD ORDERABLES Final Result [facility] [address] [place] [address], [place] * (ABNORMAL) Complete Blood Count (02/16/2025 2:08 AM EST) Only the most recent of3 resultswithin the time period is included. WBC 10.0(H) 4.0 - 9.3 10*3/uL 02/16/2025 3:08 AM [facility] Hemoglobin 13.9 11.0 - 16.7 g/dL 02/16/2025 3:08 AM [facility] Hematocrit 40.6 33.0 - 49.0 % 02/16/2025 3:08 AM [facility] RBC 4.56 4.00 - 5.70 10*6/uL 02/16/2025 3:08 AM [facility] MCV 89.0 82.3 - 93.2 fL 02/16/2025 3:08 AM [facility] MCH 30.5 27.5 - 32.2 pg 02/16/2025 3:08 AM [facility] MCHC 34.2 32.5 - 35.5 g/dL 02/16/2025 3:08 AM [facility] RDW 12.3 12.0 - 15.0 % 02/16/2025 3:08 AM [facility] Platelet Count 298 130 - 350 10*3/uL 02/16/2025 3:08 AM [facility] MPV 10.0 7.5 - 10.7 fL 02/16/2025 3:08 AM [facility] NRBC % 0.0 <=0.0 % 02/16/2025 3:08 AM [facility] Absolute NRBC 0.00 <=0.00 10*3/uL 02/16/2025 3:08 AM [facility] Blood Venous blood / Unknown Venipuncture / Unknown 02/16/2025 2:08 AM EST 02/16/2025 2:27 AM EST Trevor L Elizabeth PA LAB BLOOD ORDERABLES Final Result Performing Organization Address [facility]/ZIP Co de Phone Number [facility] [address] [place] [address], [place] * Ethanol (02/16/2025 2:08 AM EST) Only the most recent of3 resultswithin the time period is included. Ethanol <10 <=10 mg/dL 02/16/2025 3:35 AM [facility] Comment: I-Result < dynamic range M-Verified value by repeat analysis > = 50 mg/dl (legally impaired) >= 80 mg/dl (legally intoxicated) Blood Venous blood / Unknown Venipuncture / Unknown 02/16/2025 2:08 AM EST 02/16/2025 2:26 AM EST Trevor L Elizabeth PA LAB BLOOD ORDERABLES Final Result Performing Organization Address [facility] Co de Phone Number [facility] [address] [place] [address], [place] * (ABNORMAL) Acetaminophen Level (02/16/2025 2:08 AM EST) Only the most recent of3 resultswithin the time period is included. Acetaminophen 0.3(L) Therapeutic Range: 10-30 ug/mL ug/mL 02/16/2025 3:35 AM [facility] Comment: Toxic: Greater than 150 ug/mL at 4 hours after ingestion or half-life greater than 4 hours. Blood Venous blood / Unknown Venipuncture / Unknown 02/16/2025 2:08 AM EST 02/16/2025 2:26 AM EST Trevor Johnson [place] LAB BLOOD ORDERABLES Final Result Performing Organization Address [facility] de Phone Number [facility] [address] [place] [address], [place] * Salicylate (02/16/2025 2:08 AM EST) Only the most recent of3 resultswithin the time period is included. Salicylate <1.5 Therapeutic Range: 2-30 mg/dL mg/dL 02/16/2025 3:35 AM [facility] Comment: I-Result < dynamic range M-Verified value by repeat analysis Therapeutic: Analgesia: Up to 20 mg/dl Antipyresis: Up to 20 mg/dl Anti-inflammatory: Up to 30 mg/dl Toxic: >30.0 mg/dl Blood Venous blood / Unknown Venipuncture / Unknown 02/16/2025 2:08 AM EST 02/16/2025 2:26 AM EST Trevor ZIMMERMAN LAB BLOOD ORDERABLES Final Result Performing Organization Address [facility] de Phone Number [facility] [address] [place] [address], [place] * (ABNORMAL) Comprehensive Metabolic Panel (02/16/2025 2:08 AM EST) Only the most recent of3 resultswithin the time period is included. Sodium 144 135 - 145 mmol/L 02/16/2025 3:13 AM [facility] Potassium 3.4 3.4 - 5.2 mmol/L 02/16/2025 3:13 AM [facility] Chloride 106 99 - 109 mmol/L 02/16/2025 3:13 AM [facility] Carbon Dioxide 31(H) 21 - 30 mmol/L 02/16/2025 3:13 AM [facility] Comment: High LDH can falsely elevate CO2 results. If elevated LDH levels are clinically suspected, interpret CO2 with caution. Blood Urea Nitrogen (BUN) 23(H) 7 - 22 mg/dL 02/16/2025 3:13 AM [facility] Creatinine 0.85 0.60 - 1.30 mg/dL 02/16/2025 3:13 AM [facility] Glucose 142(H) 65 - 99 mg/dL 02/16/2025 3:13 AM [facility] Calcium 9.0 8.6 - 10.3 mg/dL 02/16/2025 3:13 AM [facility] Anion Gap 7 5 - 15 mmol/L 02/16/2025 3:13 AM [facility] eGFR 85 >=60 mL/min/1. 73m*2 02/16/2025 3:13 AM [facility] Comment: Calculation based on the Chronic Kidney Disease Epidemiology Collaboration (CKD- EPI) equation refit without adjustment for race. *This eGRF calculation is based on the 4425-OWU-AHU creatinine equations for adults designed to estimate glomerular filtration rate (eGFR) without race adjustment factors. *This eGFR results are indexed to standard body surface area (BSA) 1.73 M(2). *eGFR results should only be used for adult patients >=18 years old. *Use of nonindexed eGFR values (mL/min) should be considered for drug dosing decisions. Total Protein 6.4 6.0 - 8.0 g/dL 02/16/2025 3:13 AM [facility] Albumin 3.9 3.5 - 5.2 g/dL 02/16/2025 3:13 AM [facility] Globulin, Total 2.5 g/dL 3:13 AM [facility] A/G Ratio 1.6 02/16/2025 3:13 AM [facility] Bilirubin, Total 0.5 0.1 - 1.2 mg/dL 02/16/2025 3:13 AM [facility] Alanine Aminotransferase (ALT) 15 7 - 52 U/L 02/16/2025 3:13 AM [facility] Aspartate Aminotransferase (AST) 20 5 - 45 U/L 02/16/2025 3:13 AM EST [facility] Alkaline Phosphatase 78 34 - 104 U/L 02/16/2025 3:13 AM [facility] Blood Venous blood / Unknown Venipuncture / Unknown 02/16/2025 2:08 AM EST 02/16/2025 2:26 AM EST us Trevor ZIMMERMAN LAB BLOOD ORDERABLES Final Result Performing Organization Address City/[facility]/ZIP Co de Phone Number [facility] [address] [place] [address], [place] * (ABNORMAL) Urine Culture - [facility] (01/10/2025 7:23 PM EDT) Urine Culture 10,000 CFU/mL Streptococcus mitis group(A) 01/12/2025 8:03 PM EDT [facility] Comment:Along with Urine Culture <10,000 colonies/ml. Insignificant colony count. No further workup. 01/12/2025 8:03 PM EDT [facility] Urine Urine specimen obtained by clean catch procedure / Unknown Non-blood Collection / Unknown 01/10/2025 7:23 PM EDT 01/10/2025 7:28 PM EDT Narrative [facility] - 01/12/2025 8:03 PM EDT The performance characteristics of the Microbial Identification methods used were determined by the Microbiology Laboratory at the [facility]. They have not been cleared or approved by the U.S. Food and Drug Administration. us Mansi Wills MD LAB MICROBIOLOGY - GENERAL ORD ERABLES Final Result [facility] [address] [place] [address], [place] * Lipid Panel with RFLX Direct LDL - [facility] (06/22/2024 8:05 PM EDT) Cholesterol 143 mg/dL 06/22/2024 8:[address] [facility] Comment: DESIRABLE <200 mg/dL BORDER LINE 200-239 mg/dL HIGH RISK >240 mg/dL Triglycerides 72 mg/dL 06/22/2024 8:[address] [facility] Comment: DESIRABLE <150 mg/dL BORDER LINE 150-199 mg/dL HIGH RISK >200 mg/dL HDL Cholesterol 50.0 mg/dL 8:[address] [facility] Comment: DESIRABLE >65 mg/dL BORDERLINE 45-65 mg/dL HIGH RISK <45 mg/dL LDL Calculated 79 <=100 mg/dL 06/22/2024 8:[address] [facility] VLDL CHOLESTEROL 14.4 5 - 40 mg/dL 06/22/2024 8:[address] [facility] CHOL/HDL RATIO 2.9 0.0 - 5.0 06/22/2024 8:[address] [facility] Blood Venous blood / Unknown Venipuncture / Unknown 06/22/2024 8:05 PM EDT 06/22/2024 8:08 PM EDT us Felice Bonilla MD LAB BLOOD ORDERABLES Final Re sult [facility] [address] [place] [address] from Last 3 Months or Most Recently Relevant to Health Maintenance Insurance [employer] Member Subscriber Plan / Payer (Ef fective 2024-Present) Name:Ashley Anton Member ID:Not on file Relation to Subscriber:Self Name:Desean Ashley Hyman Subscriber ID:Not on file Payer ID:[id number] Group ID:Not on file Type:Not on file Address: [address] [place] [address] Advance Directives For more information, please contact: [phone] (Available ) * Resuscitation Status (Latest Code Status on File) Date Activated Date Inactivated Comments 06/16/2024 3:06 PM 06/17/2024 1:03 PM Question Answer Comments If no pulse and/or not breathing: Attempt CPR If pulse and breathing present: Intubati on and correction mechanical ventilation Care Teams Casting Wheel Operator Helper Relationship Specialty Start Date End Date Provider, No PCP - General 12/01/24
--- OUTSIDE RECORDS SUMMARY | 2025-03-06 23:58 | XMS_ITS | Encounter Summary ---
Author Organization [facility] Address [address] [place] [address] Phone Care Team Providers Care Medication Care Manager Name Role Phone Provider, No Primary Care Provider Unavailabl e Encounter Details Date Type Department Care Team (Late st Contact Info) Description 02/09/2025 External Contact EXTERNAL LOCATION [address] [place] [phone] Luisxdelfino, Default Provider Social History Tobacco [...] AM EST Emergency Discharge Alert Powered by [email or web address] Patient Name: WAGNER MONTEJO : [id number] Patient Patient MR#: [id number] Source Facility: [facility] AdmitDateTime: 2025-02-09 07:39:00 DischargeDateTime: 2025-02-09 17:37:00 [...] documented as of this encounter Care Teams Medication Care Manager Relationship Specialty Start Date End Date Provider, No PCP - General 12/01/24 documented as of this encounter
--- OUTSIDE RECORDS SUMMARY | 2025-03-06 23:58 | XMS_ITS | Clinical Summary ---
Author Organization [facility] Address [address] [place] [address] Phone Care Team Providers Care Installer Apprentice Name Role Phone Pcp, Unknown Primary Care Provider Grace Carpenter MD Unavailable [phone] Allergies Active Allergy Reactions Criticality Noted Date [...] Date Type Department Care Team Description 12/29/[address] [facility] RISK SCORES SYSTEM GENERATED External System Generated Encounter [address] [place] [address] Unknown, Unknown, from Last 3 Months Immunizations [...] EDT) SODIUM 135 133 - 146 mmol/L [facility] CHLORIDE 100 96 - 108 mmol/L [facility] POTASSIUM 3.8 3.3 - 5.1 mmol/L [facility] CO2 23 21 - 35 mmol/L [facility] BUN 20(H) 6 - 19 mg/dL [facility] CREATININE 0.60 0.5 - 1.5 mg/dL [facility] GLUCOSE 85 70 - 99 mg/dL [facility] CALCIUM 8.7 8.4 - 10.3 mg/dL [facility] EGFR 111 >59 mL/min/1.7 3m2 [facility] Comment:Estimated glomerular filtration rate calculated using the CKD-EPI refit equation. ANION GAP 16 10 - 20 mmol/L [facility] Blood 09/01/2023 2:54 AM EDT 09/01/2023 2:58 AM EDT us Shawn Villa MD LAB BLOOD BKR ORDERABLES Fi nal Result Performing Organization Address City/State/[facility] Co de Phone Number [address] [address] * TSH with reflex (08/02/2023 10:12 AM EDT) TSH 3.20 0.27 - 4.20 uIU/mL [facility] Blood 08/02/2023 10:1 2 AM EDT 08/02/2023 10:26 AM EDT us Goldy Ventura MD LAB BLOOD BKR ORDERABLES F inal Result Performing Organization Address City/State/[facility] Co de Phone Number [address] [address] * (ABNORMAL) Lipid panel (08/02/2023 10:12 AM EDT) HDL 57 mg/dL [facility] Comment: Interpretation <40 mg/dL: Low HDL cholesterol (major risk factor for CHD) Greater than or equal to 60 mg/dL: High HDL cholesterol ( negative risk factor for CHD) HDL - cholesterol is affected by a number of factors, e.g. smoking, excerise, hormones, sex and age. CHOLESTEROL 176 0 - 240 mg/dL [facility] TRIGLYCERIDES 88 30 - 160 mg/dL [facility] LDL 101 50 - 129 mg/dL [facility] Comment: LDL levels in terms of risk for coronary heart disease: <100 mg/dL: Optimal 100-129 mg/dL: Near or above optimal 130-159 mg/dL: Borderline high 160-189 mg/dL: High >190 mg/dL: Very High CARDIAC RISK RATIO 3.1(L) 3.3 - 4.4 [facility] Blood 08/02/2023 10:1 2 AM EDT 08/02/2023 10:27 AM EDT us Goldy Ventura MD LAB BLOOD BKR ORDERABLES F inal Result Performing Organization Address [facility] Co de Phone Number [address] [address] * (ABNORMAL) Colo level (07/28/2023 11:54 PM EDT) LITHIUM 0.24(L) 0.5 - 1.00 mmol/L [facility] 07/28/2023 11:5 4 PM EDT 07/29/2023 12:03 AM EDT us Alannah Melvin PA-C LAB BLOOD BKR ORDERAB LES Final Result Performing Organization Address [facility] Co de Phone Number [address] [address] from Last 3 Months or Most Recently Relevant to Health Maintenance [place] [address] ACO GENERIC COMMERCIAL [facility] ACO GENER[employer] [address] [place] [address] [employer]CO GENERIC COMMERCIAL Member Subscriber Plan / Payer ( fective 2023-) Name:Ashley Anton Relation to Subscriber:Self Name:Ashley Anton Payer ID:Not on file Group ID:Not on file Type:Indemnity Address: ATTN: Claims [address] [facility] [place] [id number] GENERIC COMMERCIAL GENERIC COMMERCIAL Advance Directives For more information, please contact: [phone] (9AM - 5PM [facility], Sunday-Sunday) * Full Code (Latest Code Status [...] 5:28 PM 04/10/2018 1:54 PM Care Teams Installer Apprentice Relationship Specialty Start Date End Date Pcp, Unknown PCP - General 10/08/22 Grace Kahn MD [address] [place] [address], [address] [place] [address] [email or web address] Insurance Assigned Provider 02/14/25 Additional Source Comments The information contained in this document represents components of the legal health record. It is not the complete legal health record.[facility]
--- OUTSIDE RECORDS SUMMARY | 2025-03-06 23:58 | XMS_ITS | Clinical Summary ---
Author Organization [facility] Address [facility] [place] [address] Care Team Providers Care Investment Director Name Role Phone None Primary Care [...] - 199 mg/dL 08/09/2024 8:11 PM EDT [facility] Comment:Glucose Concentratio n >=200 mg/dL plus symptoms is consistent with Diabetes Mellitus. Blood Urea Nitrogen 20 8 - 20 mg/dL 08/09/2024 8:11 PM EDT [facility] Creatinine 0.76 0.70 - 1.50 mg/dL 08/09/2024 8:11 PM EDT [facility] Sodium 141 135 - 145 mMol/L 08/09/2024 8:11 PM EDT [facility] Potassium 3.9 3.5 - 5.0 mMol/L 08/09/2024 8:11 PM EDT [facility] Chloride 103 98 - 107 mMol/L 08/09/2024 8:11 PM EDT [facility] Carbon Dioxide 25 22 - 31 mMol/L 08/09/2024 8:11 PM EDT [facility] Anion Gap 13 5 - 15 mMol/L 08/09/2024 8:11 PM [facility] Calcium 9.4 8.5 - 10.5 mg/dL 08/09/2024 8:11 PM [facility] Protein, Total 6.9 6.1 - 8.0 g/dL 08/09/2024 8:11 PM [facility] Albumin 4.2 3.2 - 5.2 g/dL 08/09/2024 8:11 PM [facility] Aspartate Aminotransferase 18 <=39 unit/L 08/09/2024 8:11 PM [facility] Alanine Aminotransferase 21 0 - 55 unit/L 08/09/2024 8:11 PM [facility] Alkaline Phosphatase 86 35 - 130 unit/L 08/09/2024 8:11 PM [facility] Bilirubin, Total 0.6 <=1.3 mg/dL 08/09/2024 8:11 PM [facility] Est Glomerular Filtration Rate - Male 111 mL/min/1. 73 m 08/09/2024 8:11 PM [facility] Comment: This patient's estimated GFR [...] 97 mL/min/1. 73 m 08/09/2024 8:11 PM [facility] Comment: This patient's estimated GFR [...] Evans MD CHEMISTRY ORDERABLES Final R esult [facility] [address] [place] [address] from Last 3 Months or Most Recently Relevant to Health Maintenance Insurance MEDICAID [place] Care Teams Investment Director Relationship Specialty Start Date End Date None None PCP - General 08/09/24
--- OUTSIDE RECORDS SUMMARY | 2025-03-06 23:58 | XMS_ITS | Encounter Summary ---
Author Organization [facility] Address [address] [place] [address] Phone Care Team Providers Care Ice Hockey Coach Name Role Phone Provider, No Primary Care Provider Unavailabl e Encounter Details Date Type Department Care Team (Late st Contact Info) Description 01/13/2025 External Contact EXTERNAL LOCATION [address] [place] [phone] Vince, Rosa Provider Social History Tobacco [...] AM EDT Emergency Discharge Alert Powered by [id number] Patient Name: WAGNER MONTEJO : [id number] Patient Patient MR#: [id number] Source Facility: [facility] ADM-ClinicianName: UNKNOWN UNKNOWNCode: UNKNOWNAA: NPI ATT-ClinicianName: DANIELA MANNINGCode: [id number]: AdmitDateTime: 2025-01-13 00:35:00 DischargeDateTime: 2025-01-13 11:12:00 Admit Reason Code: suicidal ideations AllergenTypeIDDescSeverityCodeReactionCodeIDDate No Allergy Found DiagnosisCodeDes R45.851Suicidal ideations Electronically signed by Interface, Movement Therapist In [employer] at 01/13/2025 11:15 AM EDT documented in this encounter Plan of Treatment Not on file documented as of this encounter Visit Diagnoses Not on filedocumented in this encounter Additional Health Concerns Infection Onset Date Last Indicated Resolved Time Respiratory Rule-Out 02/16/2025 02/16/2025 025 2:44 AM EST documented as of this encounter Care Teams Ice Hockey Coach Relationship Specialty Start Date End Date Provider, No PCP - General 12/01/24 documented as of this encounter
--- OUTSIDE RECORDS SUMMARY | 2025-03-06 23:58 | XMS_ITS | Encounter Summary ---
Author Organization [facility] Address [address] [place] [address] Phone Care Team Providers Care Associate Brand Manager Name Role Phone Provider, No Primary Care Provider Unavailabl e Encounter Details Date Type Department Care Team (Late st Contact Info) Description 02/12/2025 External Contact EXTERNAL LOCATION [address] [place] [phone] Vince, Rosa Provider Social History Tobacco [...] 02/15/2025 11:14 PM Marlen Wren RN * Anthony Suicide Severity Rating Scale (Screener/Recent Self-Report) Question [...] AM EST Emergency Discharge Alert Powered by [id number] Patient Name: WAGNER MONTEJO : [id number] Patient Patient MR#: [id number] Source Facility: [facility] ATT-ClinicianName: SHAKIR ISAACSCode: [id number]: AdmitDateTime: 2025-02-12 02:15:00 DischargeDateTime: 2025-02-12 08:17:00 Admit [...] documented as of this encounter Care Teams Associate Brand Manager Relationship Specialty Start Date End Date Provider, No PCP - General 12/01/24 documented as of this encounter
--- OUTSIDE RECORDS SUMMARY | 2025-03-06 23:58 | XMS_ITS | Encounter Summary ---
Author Organization [facility] Address [address] [place] [address] Phone Care Team Providers Care Bookmobile Clerk Name Role Phone Provider, No Primary Care Provider Haroon e Encounter Details Date Type Department Care Team (Late st Contact Info) Description 09/17/2024 External Contact EXTERNAL LOCATION [address] [place] [phone] Vince, Rosa Provider Social History Tobacco [...] AM EDT Emergency Discharge Alert Powered by [id number] Patient Name: WAGNER MONTEJO : [id number] Patient Patient MR#: [id number] Source Facility: [facility] ATT-ClinicianName: DAMARI REYNAGACode: [id number]: NPI AdmitDateTime: 2024-09-17 01:24:00 DischargeDateTime: 2024-09-17 10:00:00 Admit Reason Description: Detox AllergenTypeIDDescSeverityCodeReactionCodeIDDate 1903ALOE PYSEDduhW9634-11-08 00:00:00 1020VITAMIN E (D-ALPHA TOCOPHEROL)XznaH7015-66-02 00:00:00 4785XWUMCZxfsIqhygnsbtqo1894-61-16 00:00:00 7227KYUWUMUZTysOzxk1268-80-63 00:00:00 DiagnosisCodeDesc Z76.5Malingerer (conscious simulation) Discharge Disposition: [...] documented as of this encounter Care Teams Bookmobile Clerk Relationship Specialty Start Date End Date Provider, No PCP - General 12/01/24 documented as of this encounter
--- OUTSIDE RECORDS SUMMARY | 2025-03-06 23:58 | XMS_ITS | Encounter Summary ---
Author Organization [facility] Address [address] [place] [address] Phone Care Team Providers Care Hemodialysis Lab Technician Name Role Phone Provider, No Primary Care Provider Unavailabl e Encounter Details Date Type Department Care Team (Late st Contact Info) Description 12/11/2024 External Contact EXTERNAL LOCATION [address] [place] [phone] Vince, Rosa Provider Social History Tobacco [...] AM EDT Emergency Discharge Alert Powered by [id number] Patient Name: WAGNER MONTEJO : [id number] Patient Patient MR#: [id number] Source Facility: [facility] ADM-ClinicianName: UNKNOWN UNKNOWNCode: UNKNOWNAA: NPI ATT-ClinicianName: DAMARI REYNAGACode: [id number]: AdmitDateTime: 2024-12-11 01:25:00 DischargeDateTime: 2024-12-11 12:26:00 Admit Reason Code: Back Pain AllergenTypeIDDescSeverityCodeReactionCodeIDDate No Allergy Found DiagnosisCodeDseneca hospital R45.851Suicidal ideations F32.ADepression, unspecified Electronically signed by Interface, Continuous Weld Pipe Mill Supervisor In [employer] at 12/11/2024 12:28 PM EDT documented in this encounter Plan of Treatment Not on file documented as of this encounter Visit Diagnoses Not on filedocumented in this encounter Additional Health Concerns Infection Onset Date Last Indicated Resolved Time Respiratory Rule-Out 01/10/2025 01/10/2025 025 7:46 PM EDT Respiratory Rule-Out 02/16/2025 02/16/2025 025 2:44 AM EST documented as of this encounter Care Teams Hemodialysis Lab Technician Relationship Specialty Start Date End Date Provider, No PCP - General 12/01/24 documented as of this encounter
--- NOTE | 2025-03-07 01:44 | ED_ITS ---
[facility] - General Adult General Chief complaint: Psychiatric Symptoms Stated complaint: SI Time Seen by Provider: 03/07/25 01:44 Source: patient Mode of arrival: ambulatory Limitations: no limitations History of Present Illness ED Provider: Dr. Levi [facility] narrative: 41-year-old female presented hospital today for evaluation of suicide ideation. Patient has a male to female transgender. History of bipolar disease, cocaine abuse. Patient stated that she has been feeling suicidal. Attempted to cut her wrists on the left side. Related Data Previous Rx's ?Medication ?Instructions ?Recorded aripiprazole 5 mg tablet (Abilify) 5 mg PO DAILY #30 t abs 03/05/25 hydroxyzine HCl 25 mg tablet 25 mg PO Q6H PRN mild anx iety #30 03/05/25 tabs trazodone 50 mg tablet 50 mg PO BEDTIME MRX1 PRN In somnia 03/05/25 #30 tabs Allergies Allergy/AdvReac Type Severity Reaction Status Date / Time nicotine (From NICODERM CQ) Allergy Mild SHORTNESS Verified 03/06/25 23:41 OF BREATH ketchup (KETCHUP) Allergy Unknown RASH Verified 03/06/25 23:41 onion (ONION) Allergy Unknown RASH Verified 03/06/25 23:41 tomato (TOMATO) Allergy Unknown RASH Verified 03/06/25 23:41 Review of Systems Review of Systems: Pertinent review of systems as mentioned in [facility]. All other system otherwise negative. [facility] Past Medical History [facility] Narrative: Medical history as mentioned in [facility] Medical History Cocaine abuse Transgender Personality disorder Bipolar 1 disorder Social History Social History Household Members: Unknown / Unable to assess Housing: Unknown / Unable to assess Alcohol intake: current Alcohol intake frequency: does not drink Alcohol type: hard liquor Patient Tobacco Use Status: Current everyday Tobacco user Substance Use Type: Crack/Cocaine Advance Directives: No Advance Directives Information Provided: No service: No Sexual orientation: Lesbian/Pichardo/Homosexual Physical Exam ED Exam Exam: General: Pleasant, no distress, interacting appropriately Head: Normacephalic, atraumatic ENT: oral mucosa moist, neck supple, no tracheal deviation Cardiovascular: regular rate, regular rhythm, no murmurs, rubbing, gallops Respiratory: CTAB, no wheeze, rales, rhonchi Gastrointestinal: Soft, non distended, non tender, non guarding Extremities: Scars appreciated on her left forearm. Does not appear to be acute does not require laceration repair at this time. Neurological: Awake and alert, no facial droop noted Skin: Warm and dry Psychiatric: Endorses suicide ideation Vital Signs: Vital Signs - 24 hr 03/06/25 23:39 03/07/25 06:18 Temperature 96.7 F L 98 F Pulse Rate 69 66 Respiratory Rate 20 16 Blood Pressure 110/69 94/48 L Pulse Oximetry 99 95 Oxygen Delivery Method Room Air Room Air BMI result Body Mass Index 15.1 Course Reevaluation(s) Reevaluation #1: Time: 07:07 Date: 03/07/25 Provider: Shine Boone MD Patient in physician observation for psychiatric evaluation.? No acute events reported overnight. No current complaints. VS stable.? Patient is in bed search status/pending CARE team evaluation. Will continue to monitor. Reevaluation #2: 03/07/2025 11:25 Dr. Boone The patient was seen by the crisis team cleared for discharge no SI at this time, she is well known to the crisis team. At this time we will discharge the patient home this will end of the ED obs status Time: 11:26 Medical Decision Making Medical Decision Making MDM Narrative: 49-year-old female presented hospital today for evaluation of suicide ideation. We will consult care team at this time. Patient had received lab recently and was recently seen here. I do not see the need to repeat this. Patient is medically cleared from my standpoint. Patient will be signed out pending care team evaluation. Differential Diagnosis Differential Diagnoses: The differential diagnosis associated with the presentation includes Suicide ideation, depression, malingering Discharge Plan Discharge Clinical Impression: Depression Qualifiers: Depression Type: major depressive disorder Major depression recurrence: single episode Active/Remission status: in full remission Qualified Code(s): F32.5 - Major depressive disorder, single episode, in full remission Patient Disposition: Home, Self-Care Instructions: Depression (ED) Prescriptions: No Action trazodone 50 mg Tablet 50 mg PO BEDTIME MRX1 PRN (Reason: Insomnia) Qty: 30 0RF hydroxyzine HCl 25 mg Tablet 25 mg PO Q6H PRN (Reason: mild anxiety) Qty: 30 0RF aripiprazole [Abilify] 5 mg Tablet 5 mg PO DAILY Qty: 30 0RF Interventions: Oliver-Suicide Risk Severity Scale Last Done: 03/07/25 00:00 Print Language: Hungarian
[2025-03-07 06:18] VITALS: BP 94/48; PULSE 66; RESP 16; TEMP 36.6; O2SAT 95
--- NOTE | 2025-03-07 08:18 | PC.NURSE ---
Assumed care of patient at 0645. Patient resting in bed. Respirations even and unlabored. Patient in hospital scrubs. VSS. No needs at this time.
--- NOTE | 2025-03-07 11:27 | MHC.CARE ---
Patient reported she has secured a respite bed at [facility] in [place] and would like to be discharged. Dr. Boone updated
[2025-03-07 11:38] VITALS: BP 94/48; PULSE 66; RESP 16; TEMP 36.6; O2SAT 95
--- NOTE | 2025-03-07 11:39 | PC.NURSE ---
patient states they were going to respite in [place], requested rN to call care team for dc. care team called, patient requested ride to respite from care team and care team said they were not able to lyft patient. patient informed this, called this RN an gisela davis and a bryan. security notified of patient behavior. patient ambulated off of unit with steady gait and all belongings. CARE team notified of patients behavior
== END 2025-03-07 11:38 | disposition home or self-care (01) ==
PROVIDERS: Emergency Provider Student in an Organized Health Care Education/Training Program
DX: F32.5 Major depressive disorder, single episode, in full remission (principal); R45.851 Suicidal ideations; F17.210 Nicotine dependence, cigarettes, uncomplicated; F14.90 Cocaine use, unspecified, uncomplicated
CPT/HCPCS: 99284; S9485

== ENCOUNTER 2025-03-09 03:19 | Emergency (ER) | payer MEDICAID, SELFPAY ==
[2025-03-09 03:22] VITALS: BP 108/58; PULSE 67; RESP 18; TEMP 36.4; O2SAT 94; BMI 25.1
--- OUTSIDE RECORDS SUMMARY | 2025-03-09 03:39 | XMS_ITS | Encounter Summary ---
Author Organization [facility] Address [address] [place] [address] Phone Care Team Providers Care Power Generation Turbine Room Operator Name Role Phone Provider, No Primary Care Provider Unavailabl e Encounter Details Date Type Department Care Team (Late st Contact Info) Description 01/13/2025 External Contact EXTERNAL LOCATION [address] [place] [phone] Vince, Rosa Provider Social History Tobacco [...] AM EDT Emergency Discharge Alert Powered by [id number] Patient Name: WAGNER MONTEJO : [id number] Patient Patient MR#: [id number] Source Facility: [facility] ADM-ClinicianName: UNKNOWN UNKNOWNCode: UNKNOWNAA: NPI ATT-ClinicianName: DANIELA MANNINGCode: [id number]: AdmitDateTime: 2025-01-13 00:35:00 DischargeDateTime: 2025-01-13 11:12:00 Admit Reason Code: suicidal ideations AllergenTypeIDDescSeverityCodeReactionCodeIDDate No Allergy Found DiagnosisCodeDes R45.851Suicidal ideations Electronically signed by Interface, Skull Chopper In [employer] at 01/13/2025 11:15 AM EDT documented in this encounter Plan of Treatment Not on file documented as of this encounter Visit Diagnoses Not on filedocumented in this encounter Additional Health Concerns Infection Onset Date Last Indicated Resolved Time Respiratory Rule-Out 02/16/2025 02/16/2025 025 2:44 AM EST documented as of this encounter Care Teams Power Generation Turbine Room Operator Relationship Specialty Start Date End Date Provider, No PCP - General 12/01/24 documented as of this encounter
--- OUTSIDE RECORDS SUMMARY | 2025-03-09 03:39 | XMS_ITS | Clinical Summary ---
Author Organization [facility] Address [facility] [place] [address] Care Team Providers Care Inspector Publications Name Role Phone None Primary Care Provider [...] - 199 mg/dL 08/09/2024 8:11 PM EDT [facility] Comment:Glucose Concentratio n >=200 mg/dL plus symptoms is consistent with Diabetes Mellitus. Blood Urea Nitrogen 20 8 - 20 mg/dL 08/09/2024 8:11 PM EDT [facility] Creatinine 0.76 0.70 - 1.50 mg/dL 08/09/2024 8:11 PM EDT [facility] Sodium 141 135 - 145 mMol/L 08/09/2024 8:11 PM EDT [facility] Potassium 3.9 3.5 - 5.0 mMol/L 08/09/2024 8:11 PM EDT [facility] Chloride 103 98 - 107 mMol/L 08/09/2024 8:11 PM EDT [facility] Carbon Dioxide 25 22 - 31 mMol/L 08/09/2024 8:11 PM EDT [facility] Anion Gap 13 5 - 15 mMol/L 08/09/2024 8:11 PM [facility] Calcium 9.4 8.5 - 10.5 mg/dL 08/09/2024 8:11 PM [facility] Protein, Total 6.9 6.1 - 8.0 g/dL 08/09/2024 8:11 PM [facility] Albumin 4.2 3.2 - 5.2 g/dL 08/09/2024 8:11 PM [facility] Aspartate Aminotransferase 18 <=39 unit/L 08/09/2024 8:11 PM [facility] Alanine Aminotransferase 21 0 - 55 unit/L 08/09/2024 8:11 PM [facility] Alkaline Phosphatase 86 35 - 130 unit/L 08/09/2024 8:11 PM [facility] Bilirubin, Total 0.6 <=1.3 mg/dL 08/09/2024 8:11 PM [facility] Est Glomerular Filtration Rate - Male 111 mL/min/1. 73 m 08/09/2024 8:11 PM [facility] Comment: This patient's estimated GFR was [...] 97 mL/min/1. 73 m 08/09/2024 8:11 PM [facility] Comment: This patient's estimated GFR was [...] Evans MD CHEMISTRY ORDERABLES Final R esult [facility] [address] [place] [address] from Last 3 Months or Most Recently Relevant to Health Maintenance Insurance MEDICAID [place] Care Teams Inspector Publications Relationship Specialty Start Date End Date None None PCP - General 08/09/24
--- OUTSIDE RECORDS SUMMARY | 2025-03-09 03:39 | XMS_ITS | Clinical Summary ---
Author Organization [facility] Prior to 08/30/24 Address [address] [place] [address] Care Team Providers Care Medication Specialist Name Role Phone Unavailable Primary Care Provider [...] Advance Directives For more information, please contact: [phone] Documents on File Type Date Recorded Patient Physician Pediatrician Expl anation Advance Directive and Living Will [...]
--- OUTSIDE RECORDS SUMMARY | 2025-03-09 03:39 | XMS_ITS | Encounter Summary ---
Author Organization [facility] Address [address] [place] [address] Phone Care Team Providers Care Document Review Attorney Name Role Phone Provider, No Primary Care Provider Unavailabl e Encounter Details Date Type Department Care Team (Late st Contact Info) Description 02/09/2025 External Contact EXTERNAL LOCATION [address] [place] [phone] Luisxdelfino, Default Provider Social History Tobacco [...] AM EST Emergency Discharge Alert Powered by [id number] Patient Name: WAGNER MONTEJO : [id number] Patient Patient MR#: [id number] Source Facility: [facility] AdmitDateTime: 2025-02-09 07:39:00 DischargeDateTime: 2025-02-09 17:37:00 [...] documented as of this encounter Care Teams Document Review Attorney Relationship Specialty Start Date End Date Provider, No PCP - General 12/01/24 documented as of this encounter
--- OUTSIDE RECORDS SUMMARY | 2025-03-09 03:39 | XMS_ITS | Clinical Summary ---
Author Organization [facility] Address [address] [place] [address] Phone Care Team Providers Care Chicken Hanger Name Role Phone Pcp, Unknown Primary Care Provider Grace Carpenter MD Unavailable [phone] Allergies Active Allergy Reactions Criticality Noted Date [...] Date Type Department Care Team Description 12/29/2024 [facility] RISK SCORES SYSTEM GENERATED External System Generated Encounter [address] [place] [address] Unknown, Unknown, from Last 3 Months Immunizations [...] EDT) SODIUM 135 133 - 146 mmol/L [facility] CHLORIDE 100 96 - 108 mmol/L [facility] POTASSIUM 3.8 3.3 - 5.1 mmol/L [facility] CO2 23 21 - 35 mmol/L [facility] BUN 20(H) 6 - 19 mg/dL [facility] CREATININE 0.60 0.5 - 1.5 mg/dL [facility] GLUCOSE 85 70 - 99 mg/dL [facility] CALCIUM 8.7 8.4 - 10.3 mg/dL [facility] EGFR 111 >59 mL/min/1.7 3m2 [facility] Comment:Estimated glomerular filtration rate calculated using the CKD-EPI refit equation. ANION GAP 16 10 - 20 mmol/L [facility] Blood 09/01/2023 2:54 AM EDT 09/01/2023 2:58 AM EDT us Shawn Villa MD LAB BLOOD BKR ORDERABLES Fi nal Result Performing Organization Address City/State/[facility] Co de Phone Number [address] [address] * TSH with reflex (08/02/2023 10:12 AM EDT) TSH 3.20 0.27 - 4.20 uIU/mL [facility] Blood 08/02/2023 10:1 2 AM EDT 08/02/2023 10:26 AM EDT us Goldy Ventura MD LAB BLOOD BKR ORDERABLES F inal Result Performing Organization Address City/State/[facility] Co de Phone Number [address] [address] * (ABNORMAL) Lipid panel (08/02/2023 10:12 AM EDT) HDL 57 mg/dL [facility] Comment: Interpretation <40 mg/dL: Low HDL cholesterol (major risk factor for CHD) Greater than or equal to 60 mg/dL: High HDL cholesterol ( negative risk factor for CHD) HDL - cholesterol is affected by a number of factors, e.g. smoking, excerise, hormones, sex and age. CHOLESTEROL 176 0 - 240 mg/dL [facility] TRIGLYCERIDES 88 30 - 160 mg/dL [facility] LDL 101 50 - 129 mg/dL [facility] Comment: LDL levels in terms of risk for coronary heart disease: <100 mg/dL: Optimal 100-129 mg/dL: Near or above optimal 130-159 mg/dL: Borderline high 160-189 mg/dL: High >190 mg/dL: Very High CARDIAC RISK RATIO 3.1(L) 3.3 - 4.4 [facility] Blood 08/02/2023 10:1 2 AM EDT 08/02/2023 10:27 AM EDT us Goldy Ventura MD LAB BLOOD BKR ORDERABLES F inal Result Performing Organization Address [facility] Co de Phone Number [address] [address] * (ABNORMAL) [place] level (07/28/2023 11:54 PM EDT) LITHIUM 0.24(L) 0.5 - 1.00 mmol/L [facility] 07/28/2023 11:5 4 PM EDT 07/29/2023 12:03 AM EDT us Alannah Melvin PA-C LAB BLOOD BKR ORDERAB LES Final Result Performing Organization Address [place] [facility] Co de Phone Number [address] [address] from Last 3 Months or Most Recently Relevant to Health Maintenance Insurance [address] [address] [employer] [facility] [employer] [address] [address] [employer] [place] [address] [employer] Member Subscriber Plan / Payer ( fective 2023-) Name:Ashley Anton Relation to Subscriber:Self Name:Ashley Anton Payer ID:Not on file Group ID:Not on file Type:Indemnity Address: ATTN: Claims [address] [facility] [place] [id number] GENERIC COMMERCIAL GENERIC COMMERCIAL Advance Directives For more information, please contact: [phone] (9AM - 5PM [facility], Sunday-Sunday) * Full Code (Latest Code [...] 5:28 PM 04/10/2018 1:54 PM Care Teams Chicken Hanger Relationship Specialty Start Date End Date Pcp, Unknown PCP - General 10/08/22 Grace Kahn MD [address] [place] [address], [address] [place] [address] [email or web address] Insurance Assigned Provider 02/14/25 Additional Source Comments The information contained in this document represents components of the legal health record. It is not the complete legal health record.[facility]
--- OUTSIDE RECORDS SUMMARY | 2025-03-09 03:39 | XMS_ITS | Encounter Summary ---
Author Organization [facility] Address [address] [place] [address] Phone Care Team Providers Care Fuel Retrofitting Technician Name Role Phone Provider, No Primary Care Provider Unavailabl e Encounter Details Date Type Department Care Team (Late st Contact Info) Description 02/12/2025 External Contact EXTERNAL LOCATION [address] [place] [phone] [place], Rosa Provider Social History Tobacco [...] 02/15/2025 11:14 PM Marlen Wren RN * [place] Suicide Severity Rating Scale (Screener/Recent Self-Report) Question [...] AM EST Emergency Discharge Alert Powered by [id number] Patient Name: WAGNER MONTEJO : [id number] Patient Patient MR#: [id number] Source Facility: [facility] ATT-ClinicianName: SHAKIR ISAACSCode: [id number]: AdmitDateTime: 2025-02-12 02:15:00 DischargeDateTime: 2025-02-12 08:17:00 Admit [...] documented as of this encounter Care Teams Fuel Retrofitting Technician Relationship Specialty Start Date End Date Provider, No PCP - General 12/01/24 documented as of this encounter
--- OUTSIDE RECORDS SUMMARY | 2025-03-09 03:39 | XMS_ITS | Encounter Summary ---
Author Organization [facility] Address [address] [place] [address] Phone Care Team Providers Care Floor Clerk Name Role Phone Provider, No Primary Care Provider Unavailabl e Encounter Details Date Type Department Care Team (Late st Contact Info) Description 01/14/2025 External Contact EXTERNAL LOCATION [address] [place] [phone] Vince, Rosa Provider Social History Tobacco [...] AM EDT Emergency Discharge Alert Powered by [id number] Patient Name: WAGNER MONTEJO : [id number] Patient Patient MR#: [id number] Source Facility: [place] [facility] ADM-ClinicianName: UNKNOWN UNKNOWNCode: UNKNOWNAA: NPI ATT-ClinicianName: UNKNOWN UNKNOWNCode: UNKNOWNAA: AdmitDateTime: 2025-01-14 06:58:00 DischargeDateTime: 2025-01-14 10:49:00 Admit Reason Code: SI AllergenTypeIDDescSeverityCodeReactionCodeIDDate No Allergy Found DiagnosisCodeDsel[facility] R45.851Suicidal ideations documented in this encounter Plan of Treatment Not on file documented as of this encounter Visit Diagnoses Not on filedocumented in this encounter Additional Health Concerns Infection Onset Date Last Indicated Resolved Time Respiratory Rule-Out 02/16/2025 02/16/2025 025 2:44 AM EST documented as of this encounter Care Teams Floor Clerk Relationship Specialty Start Date End Date Provider, No PCP - General 12/01/24 documented as of this encounter
--- OUTSIDE RECORDS SUMMARY | 2025-03-09 03:39 | XMS_ITS | Encounter Summary ---
Author Organization [facility] Address [address] [place] [address] Phone Care Team Providers Care Touch Up Painter Name Role Phone Provider, No Primary Care Provider Unavailabl e Encounter Details Date Type Department Care Team (Late st Contact Info) Description 12/11/2024 External Contact EXTERNAL LOCATION [address] [place] [phone] Vince, Rosa Provider Social History Tobacco [...] AM EDT Emergency Discharge Alert Powered by [id number] Patient Name: WAGNER MONTEJO : [id number] Patient Patient MR#: [id number] Source Facility: [facility] ADM-ClinicianName: UNKNOWN UNKNOWNCode: UNKNOWNAA: NPI ATT-ClinicianName: DAMARI REYNAGACode: [id number]: AdmitDateTime: 2024-12-11 01:25:00 DischargeDateTime: 2024-12-11 12:26:00 Admit Reason Code: Back Pain AllergenTypeIDDescSeverityCodeReactionCodeIDDate No Allergy Found DiagnosisCodeDherrick campus R45.851Suicidal ideations F32.ADepression, unspecified documented in this encounter Plan of Treatment Not on file documented as of this encounter Visit Diagnoses Not on filedocumented in this encounter Additional Health Concerns Infection Onset Date Last Indicated Resolved Time Respiratory Rule-Out 01/10/2025 01/10/2025 025 7:46 PM EDT Respiratory Rule-Out 02/16/2025 02/16/2025 025 2:44 AM EST documented as of this encounter Care Teams Touch Up Painter Relationship Specialty Start Date End Date Provider, No PCP - General 12/01/24 documented as of this encounter
--- OUTSIDE RECORDS SUMMARY | 2025-03-09 03:39 | XMS_ITS | Clinical Summary ---
Author Organization [facility] Address [address] [place] [address] Phone Care Team Providers Care Concrete Analyst Name Role Phone Provider, No Primary Care [...] Dental abrasion 06/17/2024 Suicidal ideation 06/16/2024 Schizophrenia ([facility]) 06/16/2024 Cocaine abuse 10/10/2022 Resolved Problems Problem Noted Date Diagnosed Date Resolved Date Trauma and stressor-related disorder 08/02/2023 05/07/2024 Suicidal ideations 05/29/2022 Major depression, recurrent 10/11/2021 05/07/2024 Substance induced mood disorder ([facility]) 06/11/1905/07/2024 Affective psychosis, bipolar ([facility]) 01/03/2019 05/07/2024 Encounters Date Type Department Care Team Description 02/24/2025 10:47 AM EST - 02/24/2025 11:55 AM EST Emergency [facility] ADULT EMERGENCY DEPARTMENT [address] [place] [address] Ariane Marcus MD Depression, unspecified depression type (Primary Dx) Discharge Disposition: DISCHARGED TO HOME/ASSISTED LIVING/SELF CARE (ROUTINE DISCHARGE) 02/24/2025 Travel 02/21/2025 10:37 PM EST - 02/22/2025 5:55 AM [facility] ADULT EMERGENCY DEPARTMENT [address] [address] Reshma Hernandez MD Unhappiness (Primary Dx) Discharge Disposition: DISCHARGED TO HOME/ASSISTED LIVING/SELF CARE (ROUTINE DISCHARGE) 02/21/2025 Travel 02/17/2025 2:17 PM EST - 02/17/2025 3:08 PM [facility] ADULT EMERGENCY DEPARTMENT [address] [place], [place] [id number] Sherita Fontana MD Paronychia of finger of right hand (Primary Dx) Discharge Disposition: DISCHARGED TO HOME/ASSISTED LIVING/SELF CARE (ROUTINE DISCHARGE) 02/17/2025 Travel 02/16/2025 2:30 AM EST - 02/16/2025 11:59 PM [facility] ADULT EMERGENCY DEPARTMENT [address] [place] [address] 02/15/2025 11:12 PM EST - 02/16/2025 9:25 AM [facility] ADULT EMERGENCY DEPARTMENT [address] [place] [address] Almita Sierra DO Asher, Shellie, MD Suicidal ideation (Primary Dx) Discharge Disposition: DISCHARGED/TRANSFERRE D TO A PSYCHIATRIC HOSPITAL OR PSYCHIATRIC DISTINCT PART UNIT OF A HOSPITAL 02/12/2025 External Contact EXTERNAL LOCATION [address] [place] [address] Hixny, Default Provider 02/09/2025 External Contact EXTERNAL LOCATION [address] [place] [address] Hixny, Default Provider 02/09/2025 - 02/09/2025 2:18 AM [facility] ADULT EMERGENCY DEPARTMENT [address] [place] [phone] Fred Booth MD Sadness (Primary Dx); Dental infection Discharge Disposition: DISCHARGED TO HOME/ASSISTED LIVING/SELF CARE (ROUTINE DISCHARGE) 02/08/2025 7:40 AM EST - 02/08/2025 12:30 PM [facility] ADULT EMERGENCY DEPARTMENT [address] [place] [address] Goldy Logan MD Stimulant use disorder (Primary Dx); Behavioral and emotional disorders with onset usually occurring in childhood and adolescence Discharge Disposition: DISCHARGED TO HOME/ASSISTED LIVING/SELF CARE (ROUTINE DISCHARGE) 02/08/2025 Travel 02/06/2025 10:49 AM EST - 02/06/2025 11:52 AM [facility] ADULT EMERGENCY DEPARTMENT [address] [place] [address] Jerry Pompa MD Pain, dental (Primary Dx) Discharge Disposition: DISCHARGED TO HOME/ASSISTED LIVING/SELF CARE (ROUTINE DISCHARGE) 01/23/2025 11:29 PM EDT - 01/26/2025 12:30 PM EDT [facility] ADULT EMERGENCY DEPARTMENT [address] [place] [address] Almita Sierra DO Cordi, Heidi, MD Pinto, Dorcas, MD Gillespie, Geoffry, MD Waxman, Michael, MD Bracey, Alexander, MD Brodie, Amy Londono MD Cocaine use disorder, severe ([facility]) (Primary Dx); Substance use disorder Discharge Disposition: DISCHARGED TO HOME/ASSISTED LIVING/SELF CARE (ROUTINE DISCHARGE) 01/23/2025 Travel 01/14/2025 External Contact EXTERNAL LOCATION [address] [place] [phone] Hixny, Default Provider 01/13/2025 External Contact EXTERNAL LOCATION [address] [place] [phone] Hixny, Default Provider 01/12/2025 Travel 01/10/2025 4:50 AM EDT - 01/12/2025 11:50 AM EDT [facility] ADULT EMERGENCY DEPARTMENT [address] [place] [address] Grajny, Mansi, Almita Kitchen DO Aly, Iman, MD Palmieri, Timothy, MD Snyder, Howard, MD Chow, Yvonne, MD Hogan, Kathryn A, MD Suicidal ideations (Primary Dx) Discharge Disposition: DISCHARGED TO HOME/ASSISTED LIVING/SELF CARE (ROUTINE DISCHARGE) 01/04/2025 4:19 AM EDT - 01/04/2025 10:10 AM EDT [facility] ADULT EMERGENCY DEPARTMENT [address] [place] [address] Denisha Ribeiro MD Vines, Spenser, DO Suicidal ideation (Primary Dx) Discharge Disposition: DISCHARGED TO HOME/ASSISTED LIVING/SELF CARE (ROUTINE DISCHARGE) 12/28/2024 4:59 AM EDT - 12/28/2024 12:32 PM EDT [facility] ADULT EMERGENCY DEPARTMENT [address] [place] [address] Radha Mckoy MD Waldrop, Michael, MD Encounter for psychological evaluation (Primary Dx) Discharge Disposition: DISCHARGED TO HOME/ASSISTED LIVING/SELF CARE (ROUTINE DISCHARGE) 12/22/2024 1:37 AM EDT - 12/22/2024 6:36 AM EDT [facility] ADULT EMERGENCY DEPARTMENT [address] [place] [address] Hua Masterson MD Suicidal thoughts (Primary Dx) Discharge Disposition: DISCHARGED TO HOME/ASSISTED LIVING/SELF CARE (ROUTINE DISCHARGE) 12/11/2024 External Contact EXTERNAL LOCATION [address] [place] [phone] Vince, [facility] Provider 12/08/2024 5:33 AM EDT - 12/09/2024 10:00 AM EDT [facility] ADULT EMERGENCY DEPARTMENT [address] [place], [place] [address] Denisha Ribeiro MD Cordi, Heidi, MD Noonan, Jessica, MD Zhang, Wen Rong, MD Thibodeau, Lorraine, MD Sadness (Primary Dx) Discharge Disposition: DISCHARGED TO HOME/ASSISTED LIVING/SELF CARE (ROUTINE DISCHARGE) 12/08/2024 Travel from Last 3 Months Social History Tobacco [...] ECG 12 lead (02/16/2025 2:30 AM EST) Diagnosis Class Borderline Abnormal GE MUSE Ventricular Rate 61 BPM GE MUSE Atrial Rate 61 BPM GE MUSE ME Interval 174 ms GE MUSE QRS DURATION 110 ms GE MUSE QT Interval 444 ms GE MUSE QTC CALCULATION (BAZETT) 446 ms GE MUSE P [place] 83 degrees GE MUSE R [place] 77 degrees GE MUSE T Wave [place] 67 degrees GE MUSE 02/16/2025 2:29 AM EST 02/17/2025 9:56 AM EST Impressions GE MUSE - 02/17/2025 9:56 AM EST NORMAL SINUS RHYTHM POSSIBLE LEFT ATRIAL ENLARGEMENT MINIMAL VOLTAGE CRITERIA FOR LVH, MAY BE NORMAL VARIANT ( [place] product ) BORDERLINE ECG Confirmed by Ricardo Gomez ([id number]) on 02/17/2025 9:56:37 AM Narrative Procedure Note Ricardo Gomez MD PhD - 02/17/2025 IMPRESSION: NORMAL SINUS RHYTHM POSSIBLE LEFT ATRIAL ENLARGEMENT MINIMAL VOLTAGE CRITERIA FOR LVH, MAY BE NORMAL VARIANT ( [employer] product) BORDERLINE ECG Confirmed by Ricardo Gomez ([id number]) on 02/17/2025 9:56:37 AM Trevor ZIMMERMAN ECG ORDERABLES Final Resu lt GE MUSE * Rapid Covid-19 (POC) (02/16/2025 2:24 AM EST) Only the most recent of2 resultswithin the time period is included. Rapid Covid 19 Negative Negative, Invalid 02/16/2025 2:44 AM EST [facility] Comment:The [employer] [facility] ID NOW COVID-19 was designated to detect the causative agent of COVID-19. [employer] was granted Emergency Use Authorization (EUA) from the FDA to distribute this test kit. Negative results do not preclude SARS-CoV-2 infection and should not be used as the sole basis for patient management decisions. Swab Both anterior nares / Unknown 02/16/2025 2:24 AM EST 02/16/2025 2:44 AM EST [facility] LABORATORY - 02/16/2025 2:44 AM EST Performed at:[address] [place] [address] Almita Sierra DO LAB POINT OF CARE T EST DOCKED DEVICE UNSOLICITED RESULTS Final Result [facility] [address] [place] [address], [place] * (ABNORMAL) Drug Screen Panel, Urine (02/16/2025 2:11 AM EST) Only the most recent of2 resultswithin the time period is included. Amphetamines, Urine Negative Negative 02/16/2025 3:04 AM [facility] Comment: I-Negative THRESHOLD 500 NG/ML Barbiturates, Urine Negative Negative 02/16/2025 3:04 AM [facility] Comment: I-Negative THRESHOLD 200 NG/ML Cocaine Metabolite, Urine Positive(A) Negative 02/16/2025 3:04 AM [facility] Comment: I-Positive THRESHOLD 150 NG/ML PRESUMPTIVE POSITIVE BY SCREENING METHOD. THIS RESULT HAS NOT BEEN CONFIRMED BY A CONFIRMATORY TECHNIQUE. Opiates, Urine Negative Negative 02/16/2025 3:04 AM [facility] Comment: I-Negative THRESHOLD 200 NG/ML Benzodiazepines, Urine Negative Negative 02/16/2025 3:04 AM [facility] Comment: I-Negative THRESHOLD 200 NG/ML Methadone, Urine Negative Negative 02/17/20 3:04 AM [facility] Comment: I-Negative THRESHOLD 300 NG/ML Phencyclidine (PCP), Urine Negative Negative 02/16/2025 3:04 AM [facility] Comment: I-Negative THRESHOLD 25 NG/ML Cannabinoids, Urine Negative Negative 02/16/2025 3:04 AM [facility] Comment: I-Negative THRESHOLD 50 NG/ML Urine Urine specimen obtained by clean catch procedure / Unknown Non-blood Collection / Unknown 02/16/2025 2:11 AM EST 02/16/2025 2:25 AM EST Trevor ZIMMERMAN LAB URINE ORDERABLES Final Result Performing Organization Address City/State/[facility] Co de Phone Number [facility] [address] [place] [address], [place] * Urinalysis With Reflex To Urine Culture (02/16/2025 2:11 AM EST) Only the most recent of3 resultswithin the time period is included. Color Yellow Yellow, Dark Yellow 02/16/2025 2:33 AM [facility] Clarity Clear Clear 02/16/2025 2:33 AM [facility] Leukocytes Negative Negative 02/16/2025 2:33 AM [facility] Nitrite Negative Negative 02/16/2025 2:33 AM [facility] Blood Negative Negative, NEG 02/16/2025 2:33 AM [facility] Glucose Negative Negative 02/16/2025 2:33 AM [facility] Ketones Negative Negative 02/16/2025 2:33 AM [facility] pH 6.0 5.0 - 8.0 pH 02/16/2025 2:33 AM [facility] Specific [place], UA 1.023 1.002 - 1.029 02/16/2025 2:33 AM [facility] Bilirubin Negative Negative, NEG 02/16/2025 2:33 AM [facility] Urobilinogen 0.2 0.2, 1.0 mg/dL 02/16/2025 2:33 AM [facility] Protein Negative Negative 02/16/2025 2:33 AM [facility] Urine Urine specimen obtained by clean catch procedure / Unknown Non-blood Collection / Unknown 02/16/2025 2:11 AM EST 02/16/2025 2:25 AM EST Trevor ZIMMERMAN LAB URINE ORDERABLES Final Result [facility] [address] [place] [address], [place] * (ABNORMAL) Automated Differential (02/16/2025 2:08 AM [facility]) Only the most recent of3 resultswithin the time period is included. Neutrophils % 51.5 41.0 - 67.0 % 02/16/2025 3:08 AM [facility] Lymphocytes % 33.4 28.0 - 42.0 % 02/16/2025 3:08 AM [facility] Monocytes % 10.2(H) 4.0 - 9.0 % 02/16/2025 3:08 AM [facility] Eosinophils % 3.8 0.0 - 5.0 % 02/16/2025 3:08 AM [facility] Basophils % 0.8 0.0 - 1.0 % 02/16/2025 3:08 AM [facility] Immature Granulocytes % 0.3 0.0 - 1.0 % 02/16/2025 3:08 AM [facility] Absolute Neutrophils 5.12 1.60 - 6.20 10*3/uL 02/16/2025 3:08 AM [facility] Absolute Lymphocytes 3.33 1.10 - 3.90 10*3/uL 02/16/2025 3:08 AM [facility] Absolute Monocytes 1.02(H) 0.20 - 0.80 10*3/uL 02/16/2025 3:08 AM [facility] Absolute Eosinophils 0.38 0.00 - 0.50 10*3/uL 02/16/2025 3:08 AM [facility] Absolute Basophils 0.08 0.00 - 0.10 10*3/uL 02/16/2025 3:08 AM [facility] Absolute Immature Granulocytes 0.03 0.00 - 0.10 10*3/uL 02/16/2025 3:08 AM [facility] Blood Venous blood / Unknown Venipuncture / Unknown 02/16/2025 2:08 AM EST 02/16/2025 2:27 AM EST us Trevor ZIMMERMAN LAB BLOOD ORDERABLES Final Result [facility] [address] [place] [address], [place] * (ABNORMAL) Complete Blood Count (02/16/2025 2:08 AM EST) Only the most recent of3 resultswithin the time period is included. WBC 10.0(H) 4.0 - 9.3 10*3/uL 02/16/2025 3:08 AM [facility] Hemoglobin 13.9 11.0 - 16.7 g/dL 02/16/2025 3:08 AM [facility] Hematocrit 40.6 33.0 - 49.0 % 02/16/2025 3:08 AM [facility] RBC 4.56 4.00 - 5.70 10*6/uL 02/16/2025 3:08 AM [facility] MCV 89.0 82.3 - 93.2 fL 02/16/2025 3:08 AM [facility] MCH 30.5 27.5 - 32.2 pg 02/16/2025 3:08 AM [facility] MCHC 34.2 32.5 - 35.5 g/dL 02/16/2025 3:08 AM [facility] RDW 12.3 12.0 - 15.0 % 02/16/2025 3:08 AM [facility] Platelet Count 298 130 - 350 10*3/uL 02/16/2025 3:08 AM [facility] MPV 10.0 7.5 - 10.7 fL 02/16/2025 3:08 AM [facility] NRBC % 0.0 <=0.0 % 02/16/2025 3:08 AM [facility] Absolute NRBC 0.00 <=0.00 10*3/uL 02/16/2025 3:08 AM [facility] Blood Venous blood / Unknown Venipuncture / Unknown 02/16/2025 2:08 AM EST 02/16/2025 2:27 AM EST Trevor L Elizabeth PA LAB BLOOD ORDERABLES Final Result Performing Organization Address [facility] Co de Phone Number [facility] [address] [place] [address], [place] * Ethanol (02/16/2025 2:08 AM EST) Only the most recent of3 resultswithin the time period is included. Ethanol <10 <=10 mg/dL 02/16/2025 3:35 AM EST [facility] Comment: I-Result < dynamic range M-Verified value by repeat analysis > = 50 mg/dl (legally impaired) >= 80 mg/dl (legally intoxicated) Blood Venous blood / Unknown Venipuncture / Unknown 02/16/2025 2:08 AM EST 02/16/2025 2:26 AM EST Trevor L Elizabeth PA LAB BLOOD ORDERABLES Final Result Performing Organization Address [facility] de Phone Number [facility] [address] [place] [address], [place] * (ABNORMAL) Acetaminophen Level (02/16/2025 2:08 AM EST) Only the most recent of3 resultswithin the time period is included. Acetaminophen 0.3(L) Therapeutic Range: 10-30 ug/mL ug/mL 02/16/2025 3:35 AM EST [facility] Comment: Toxic: Greater than 150 ug/mL at 4 hours after ingestion or half-life greater than 4 hours. Blood Venous blood / Unknown Venipuncture / Unknown 02/16/2025 2:08 AM EST 02/16/2025 2:26 AM EST Trevor L Elizabeth PA LAB BLOOD ORDERABLES Final Result Performing Organization Address [facility] Co de Phone Number [facility] [address] [place] [address], [place] * Salicylate (02/16/2025 2:08 AM EST) Only the most recent of3 resultswithin the time period is included. Salicylate <1.5 Therapeutic Range: 2-30 mg/dL mg/dL 02/16/2025 3:35 AM [facility] Comment: I-Result < dynamic range M-Verified value by repeat analysis Therapeutic: Analgesia: Up to 20 mg/dl Antipyresis: Up to 20 mg/dl Anti-inflammatory: Up to 30 mg/dl Toxic: >30.0 mg/dl Blood Venous blood / Unknown Venipuncture / Unknown 02/16/2025 2:08 AM EST 02/16/2025 2:26 AM EST us Trevor ZIMMERMAN LAB BLOOD ORDERABLES Final Result [facility] [address] [place] [address], [place] * (ABNORMAL) Comprehensive Metabolic Panel (02/16/2025 2:08 AM EST) Only the most recent of3 resultswithin the time period is included. Sodium 144 135 - 145 mmol/L 02/16/2025 3:13 AM [facility] Potassium 3.4 3.4 - 5.2 mmol/L 02/16/2025 3:13 AM [facility] Chloride 106 99 - 109 mmol/L 02/16/2025 3:13 AM [facility] Carbon Dioxide 31(H) 21 - 30 mmol/L 02/16/2025 3:13 AM [facility] Comment: High LDH can falsely elevate CO2 results. If elevated LDH levels are clinically suspected, interpret CO2 with caution. Blood Urea Nitrogen (BUN) 23(H) 7 - 22 mg/dL 02/16/2025 3:13 AM [facility] Creatinine 0.85 0.60 - 1.30 mg/dL 02/16/2025 3:13 AM [facility] Glucose 142(H) 65 - 99 mg/dL 02/16/2025 3:13 AM [facility] Calcium 9.0 8.6 - 10.3 mg/dL 02/16/2025 3:13 AM [facility] Anion Gap 7 5 - 15 mmol/L 02/16/2025 3:13 AM [facility] eGFR 85 >=60 mL/min/1. 73m*2 02/16/2025 3:13 AM [facility] Comment: Calculation based on the Chronic Kidney Disease Epidemiology Collaboration (CKD- EPI) equation refit without adjustment for race. *This eGRF calculation is based on the [id number] creatinine equations for adults designed to estimate glomerular filtration rate (eGFR) without race adjustment factors. *This eGFR results are indexed to standard body surface area (BSA) 1.73 M(2). *eGFR results should only be used for adult patients >=18 years old. *Use of nonindexed eGFR values (mL/min) should be considered for drug dosing decisions. Total Protein 6.4 6.0 - 8.0 g/dL 02/16/2025 3:13 AM [facility] Albumin 3.9 3.5 - 5.2 g/dL 02/16/2025 3:13 AM [facility] Globulin, Total 2.5 g/dL 3:13 AM [facility] A/G Ratio 1.6 02/16/2025 3:13 AM [facility] Bilirubin, Total 0.5 0.1 - 1.2 mg/dL 02/16/2025 3:13 AM [facility] Alanine Aminotransferase (ALT) 15 7 - 52 U/L 02/16/2025 3:13 AM [facility] Aspartate Aminotransferase (AST) 20 5 - 45 U/L 02/16/2025 3:13 AM [facility] Alkaline Phosphatase 78 34 - 104 U/L 02/16/2025 3:13 AM [facility] Blood Venous blood / Unknown Venipuncture / Unknown 02/16/2025 2:08 AM EST 02/16/2025 2:26 AM EST Trevor ZIMMERMAN LAB BLOOD ORDERABLES Final Result Performing Organization Address [facility]/ZIP Co de Phone Number [facility] [address] [place] [address], * (ABNORMAL) Urine Culture - [facility] (01/10/2025 7:23 PM EDT) Urine Culture 10,000 CFU/mL Streptococcus mitis group(A) 01/12/2025 8:03 PM EDT [facility] Comment:Along with Urine Culture <10,000 colonies/ml. Insignificant colony count. No further workup. 01/12/2025 8:03 PM EDT [facility] Urine Urine specimen obtained by clean catch procedure / Unknown Non-blood Collection / Unknown 01/10/2025 7:23 PM EDT 01/10/2025 7:28 PM EDT Narrative [facility] - 01/12/2025 8:03 PM EDT The performance characteristics of the Microbial Identification methods used were determined by the Microbiology Laboratory at the [facility]. They have not been cleared or approved by the U.S. Food and Drug Administration. Mansi Wills MD LAB MICROBIOLOGY - GENERAL ORD ERABLES Final Result Performing Organization Address [facility]/ZIP Co de Phone Number [facility] [address] [place] [address], [place] * Lipid Panel with RFLX Direct LDL - [facility] (06/22/2024 8:05 PM EDT) Cholesterol 143 mg/dL 06/22/2024 8:26 PM EDT [facility] Comment: DESIRABLE <200 mg/dL [place] 200-239 mg/dL HIGH RISK >240 mg/dL Triglycerides 72 mg/dL 06/22/2024 8:26 PM EDT [facility] Comment: DESIRABLE <150 mg/dL [place] 150-199 mg/dL HIGH RISK >200 mg/dL HDL Cholesterol 50.0 mg/dL 8:26 PM EDT [facility] Comment: DESIRABLE >65 mg/dL [place] 45-65 mg/dL HIGH RISK <45 mg/dL LDL Calculated 79 <=100 mg/dL 06/22/2024 8:26 PM EDT [facility] VLDL CHOLESTEROL 14.4 5 - 40 mg/dL 06/22/2024 8:26 PM EDT [facility] CHOL/HDL RATIO 2.9 0.0 - 5.0 06/22/2024 8:26 PM EDT [facility] Blood Venous blood / Unknown Venipuncture / Unknown 06/22/2024 8:05 PM EDT 06/22/2024 8:08 PM EDT us Felice Bonilla MD LAB BLOOD ORDERABLES Final Re sult [facility] [address] [place] [phone] from Last 3 Months or Most Recently Relevant to Health Maintenance Insurance [employer] Member Subscriber Plan / Payer (Ef fective 2024-Present) Name:Ashley Anton Member ID:Not on file Relation to Subscriber:Self Name:Ashley Anton Subscriber ID:Not on file Payer ID:[id number] Group ID:Not on file Type:Not on file Address: [address] [place] [address] Advance Directives For more information, please contact: [phone] (Available ) * Resuscitation Status (Latest Code Status on File) Date Activated Date Inactivated Comments 06/16/2024 3:06 PM 06/17/2024 1:03 PM Question Answer Comments If no pulse and/or not breathing: Attempt CPR If pulse and breathing present: Intubati on and fpc mechanical ventilation Care Teams Concrete Analyst Relationship Specialty Start Date End Date Provider, No PCP - General 12/01/24
--- OUTSIDE RECORDS SUMMARY | 2025-03-09 03:39 | XMS_ITS | Encounter Summary ---
Author Organization [facility] Address [address] [place] [address] Phone Care Team Providers Care Hod Carrier Name Role Phone Provider, No Primary Care Provider Haroon e Encounter Details Date Type Department Care Team (Late st Contact Info) Description 09/17/2024 External Contact EXTERNAL LOCATION [address] [place] [phone] Vince, Rosa Provider Social History Tobacco [...] AM EDT Emergency Discharge Alert Powered by [id number] Patient Name: WAGNER MONTEJO : [id number] Patient Patient MR#: [id number] Source Facility: [facility] ATT-ClinicianName: DAMARI REYNAGACode: [id number]: NPI AdmitDateTime: 2024-09-17 01:24:00 DischargeDateTime: 2024-09-17 10:00:00 Admit Reason Description: Detox AllergenTypeIDDescSeverityCodeReactionCodeIDDate 1903ALOE [id number] 00:00:00 1020VITAMIN E (D-ALPHA TOCOPHEROL)[id number] 00:00:00 [id number] 00:00:00 [id number] 00:00:00 DiagnosisCodeDesc Z76.5Malingerer (conscious simulation) Discharge Disposition: [...] documented as of this encounter Care Teams Hod Carrier Relationship Specialty Start Date End Date Provider, No PCP - General 12/01/24 documented as of this encounter
--- NOTE | 2025-03-09 06:09 | ED.GENADULT ---
[facility] - General Adult General Chief complaint: Fall Stated complaint: Injury Time Seen by Provider: 03/09/25 06:06 Source: patient Mode of arrival: ambulatory Limitations: no limitations History of Present Illness ED Provider: Dr. Levi [facility] narrative: 49-year-old male to female transgender presented hospital today for evaluation of pain. She is complaining of body wide pain after a fall. Patient was able to ambulate in triage. Low suspicion of pelvic fracture or lower extremity fracture. Complaining of back pain as well. Related Data Previous Rx's ?Medication ?Instructions ?Recorded aripiprazole 5 mg tablet (Abilify) 5 mg PO DAILY #30 tabs 03/05/25 hydroxyzine HCl 25 mg tablet 25 mg PO Q6H PRN mild anxiety #30 03/05/25 tabs trazodone 50 mg tablet 50 mg PO BEDTIME MRX1 PRN Insomnia 03/05/25 #30 tabs Allergies Allergy/AdvReac Type Severity Reaction Status Date / Time nicotine (From NICODERM CQ) Allergy Mild SHORTNESS Verified 03/09/25 03:26 OF BREATH ketchup (KETCHUP) Allergy Unknown RASH Verified 03/09/25 03:26 onion (ONION) Allergy Unknown RASH Verified 03/09/25 03:26 tomato (TOMATO) Allergy Unknown RASH Verified 03/09/25 03:26 Review of Systems Review of Systems: Pertinent review of systems as mentioned in [facility]. All other system otherwise negative. [facility] Past Medical History [facility] Narrative: Medical history as mentioned in [facility] Medical History Cocaine abuse Transgender Personality disorder Bipolar 1 disorder Social History Social History Household Members: Unknown / Unable to assess Housing: Unknown / Unable to assess Alcohol intake: current Alcohol intake frequency: does not drink Alcohol type: hard liquor Patient Tobacco Use Status: Current everyday Tobacco user Substance Use Type: Crack/Cocaine Advance Directives: No Advance Directives Information Provided: No service: No Sexual orientation: Lesbian/Pichardo/Homosexual Physical Exam ED Exam Exam: General: Pleasant, no distress, interacting appropriately Head: Normacephalic, atraumatic ENT: oral mucosa moist, neck supple, no tracheal deviation Cardiovascular: regular rate, regular rhythm, no murmurs, rubbing, gallops, no chest ecchymosis Respiratory: CTAB, no wheeze, rales, rhonchi Gastrointestinal: Soft, non distended, non tender, non guarding, no abdominal ecchymosis or bruising Extremities: No limb deformity Neurological: Awake and alert, no facial droop noted Skin: Warm and dry Psychiatric: Appropriate mood and thoughts Vital Signs: Vital Signs - 24 hr 03/09/25 03:22 Temperature 97.6 F Pulse Rate 67 Respiratory Rate 18 Blood Pressure 108/58 L Pulse Oximetry 94 Oxygen Delivery Method Room Air BMI result Body Mass Index 25.1 Medications Administered Discontinued Medications Generic Name Dose Route Start Last Admin Trade Name Freq PRN Reason Stop Dose Admin Acetaminophen 975 mg 03/09/25 06:20 03/09/25 06:32 Acetaminophen 325 Mg Tablet PO 03/09/25 06:21 975 mg ONCE ONE Administration Medical Decision Making Medical Decision Making [facility] Narrative: 49-year-old female presented hospital today for a fall complaining of body wide pain at this time. There was no external signs of trauma my examination. Appears to be breathing comfortably. Chest x-ray lumbar x-ray will be obtained. Low suspicion for acute traumatic injuries. Plan to give patient a dose of Tylenol for pain. Patient is requesting to be discharged prior to imaging at this time. Does not want to stay for imaging. The patient will be discharged. Patient is ambulatory. Not in acute distress. Differential Diagnosis Differential Diagnoses: The differential diagnosis associated with the presentation includes Lumbar fracture, lumbar fracture, fall, contusion Discharge Plan Discharge Clinical Impression: Fall Qualifiers: Encounter type: initial encounter Qualified Code(s): W19.XXXA - Unspecified fall, initial encounter Patient Disposition: Home, Self-Care Prescriptions: No Action trazodone 50 mg Tablet 50 mg PO BEDTIME MRX1 PRN (Reason: Insomnia) Qty: 30 0RF hydroxyzine HCl 25 mg Tablet 25 mg PO Q6H PRN (Reason: mild anxiety) Qty: 30 0RF aripiprazole [Abilify] 5 mg Tablet 5 mg PO DAILY Qty: 30 0RF Print Language: Equ[place]inean
[2025-03-09 07:31] VITALS: BP 111/76; PULSE 76; RESP 20; TEMP 36.4; O2SAT 96
[2025-03-09 07:34] VITALS: BP 111/76; PULSE 76; RESP 20; TEMP 36.4; O2SAT 96
== END 2025-03-09 07:50 | disposition home or self-care (01) ==
PROVIDERS: Emergency Provider Student in an Organized Health Care Education/Training Program
DX: M54.9 Dorsalgia, unspecified (principal); Z91.81 History of falling; F17.200 Nicotine dependence, unspecified, uncomplicated; Z71.6 Tobacco abuse counseling
CPT/HCPCS: 99283; 99284

== ENCOUNTER 2025-03-11 23:09 | Emergency (ER) | payer MEDICAID, SELFPAY ==
[2025-03-11 23:13] VITALS: BP 124/60; PULSE 57; RESP 20; TEMP 36.1; O2SAT 96; BMI 25.1
--- NOTE | 2025-03-11 23:48 | ED.PSYCH ---
HPI - Psych General Chief Complaint: Psychiatric Symptoms Stated Complaint: SI Time Seen by Provider: 03/11/25 23:34 History of Present Illness ED Provider: Tasha Mckeon NP HPI Narrative: 49-year-old assign male at , now female with history of bipolar 1 disorder, personality disorder, cocaine use disorder presents to the ED independently reporting passive SI, reporting earlier today she is feeling very depressed and did not want to be at home any longer, and considered cutting her wrists, but came to the ED instead. Patient reports that she would like to be placed at [facility], or a dual diagnosis program. Denies homelessness, reports she has a place to live. No homicidal ideation. No active suicidal ideation with a plan. No chest pain or pressure. No shortness of breath, no abdominal pain. No fever, chills. Was most recently seen in our ED for similar complaints on 03/07/2025. Related Data Previous Rx's ?Medication ?Instructions ?Recorded aripiprazole 5 mg tablet (Abilify) 5 mg PO DAILY #30 tabs 03/05/25 hydroxyzine HCl 25 mg tablet 25 mg PO Q6H PRN mild anxiety #30 03/05/25 tabs trazodone 50 mg tablet 50 mg PO BEDTIME MRX1 PRN Insomnia 03/05/25 #30 tabs Allergies Allergy/AdvReac Type Severity Reaction Status Date / Time [facility] Allergy Mild SHORTNESS Verified 03/11/25 23:14 OF BREATH ketchup (KETCHUP) Allergy Unknown RASH Verified 03/11/25 23:14 onion (ONION) Allergy Unknown RASH Verified 03/11/25 23:14 tomato (TOMATO) Allergy Unknown RASH Verified 03/11/25 23:14 Review of Systems Review of Systems: ROS is otherwise negative unless mentioned in HPI. PMFSH Past Medical History Medical History Cocaine abuse Transgender Personality disorder Bipolar 1 disorder Social History Social History Household Members: Unknown / Unable to assess Housing: Unknown / Unable to assess Alcohol intake: current Alcohol intake frequency: does not drink Alcohol type: hard liquor Patient Tobacco Use Status: Current everyday Tobacco user Smoked in Last 30 Days: No Use of substances other than those prescribed or required for medical reasons: Yes Substance Use Type: Crack/Cocaine Substance Use Frequency: Chronic Longstanding Advance Directives: No Advance Directives Information Provided: Yes Patient : No service: No Sexual orientation: Lesbian/Pichardo/Homosexual Physical Exam Exam: Exam: Nursing notes and vital signs reviewed. Constitutional: Well-appearing, NAD. Alert. Oriented X3. Eyes: EOMI. ENT: Pharynx normal. Neck: Normal inspection. Neck supple. Respiratory: No respiratory distress. Skin: Skin warm and dry. Extremities: No lower extremity edema. Neuro: Oriented X 3. No motor deficit. Vital Signs: Vital Signs: Last Vital Signs Temp 97.7 F 03/12/25 09:46 Pulse 50 03/12/25 09:46 Resp 18 03/12/25 09:46 BP 101/58 L 03/12/25 09:46 Pulse Ox 98 03/12/25 09:46 O2 Del Method Room Air 03/12/25 09:46 BMI result Body Mass Index 25.1 Course Reevaluation(s) Reevaluation #1: 8:09 AM 03/12/2025 (Dr. Wilfrid Ramirez): Time: 08:10 Date: 03/12/25 Provider: Wilfrid Ramirez, Physician observation ended . Patient has been cleared for discharge by the CARE team. Will follow up as an outpatient. At this time, patient does not meet criteria for IPLOC. She denies SI and reports she can be safe in a lower level of care. Patient reports she can secure placement on her own in [place] at [facility] and is only seeking an overnight stay in the ED. Patient is able to engage in safety planning and is future oriented. This case has been discussed with TERRITORY REPRESENTATIVE Tasha Mckeon who is agreeable to discharge patient in the morning at her request.? She can find her own way to [facility] or wherever she wishes to go. I believe busses are still free. 10:09 AM 03/12/2025 (Dr. Wilfrid Ramirez): I re-evaluated the patient along with community mental health social worker and behavioral health provider, patient was not happy with the disposition, this is a recurrent chronic issue, I discussed with the patient that he is always free to come back to emergency department for re-evaluation, he has been evaluated appropriately. will proceed with discharge Medical Decision Making Medical Decision Making MDM Narrative: 11:49 PM 03/11/2025 (Tasha Mckeon, CRICKET): I evaluated this patient, upon my assessment she appears well, answering questions appropriately. She endorses some passive SI. Reports that earlier today she was feeling depressed and does not want to be at home any longer. She is requesting placement and [facility], or another program for dual diagnoses. She has been here recently with the same complaint. Was most recently seen and cleared by psychiatry on 03/05/2025. There is no HI, active SI with a plan. She was seen by the behavioral health team/care team. She further reported that she needed a place to stay overnight. Plan to provide the patient resources, care team will assess and there is no indication for S12. If patient wants to discharge in morning and has adequate resources, that is appropriate. Differential Diagnosis Differential Diagnoses: The differential diagnosis associated with the presentation includes Homelessness, mental health crises, passive SI Admission/Observation Consideration of admission/observation: Escalation of care including admission/observation considered (Not indicated) Consult Healthcare Provider Management of the patient was discussed with: Behavioral Health Provider External Record Review External record reviewed: Other (Several ED presentations.) Chronic Conditions Patient?s care impacted by: Other (Anxiety, depression.) Social Determinants Patient?s care significantly limited by Social Determinants of Health including: Inadequate housing, Low income, Alcoholism and drug addiction in family, Problems related to primary support group and Problems related to employment Discharge Plan Discharge Clinical Impression: Suicidal ideation Patient Disposition: Home, Self-Care Additional Instructions: You were seen in our Emergency Department today for treatment of a behavioral health issue. It is important after your visit that you follow up with either your behavioral health provider or a primary care doctor within 7 days.? If you have trouble finding a therapist you can reach out to [address] [phone] The National Suicide and Crisis Lifeline can be reached 7 days a week 24 hours a day.? Call 988 to speak with someone.? Return for any worsening symptoms or concerns such as thoughts of self harm or harm to others. Please call 911 if you feel your mental health is worsening.? Prescriptions: No Action trazodone 50 mg Tablet 50 mg PO BEDTIME MRX1 PRN (Reason: Insomnia) Qty: 30 0RF hydroxyzine HCl 25 mg Tablet 25 mg PO Q6H PRN (Reason: mild anxiety) Qty: 30 0RF aripiprazole [Abilify] 5 mg Tablet 5 mg PO DAILY Qty: 30 0RF Referrals: Grace Roman MD [Primary Care Provider, Family Practice] Print Language: Occitan
--- NOTE | 2025-03-12 00:31 | MHC.CARE ---
CARE Team clinician spoke w/ patient prior to her being referred for a consult, to assess her situation and suicidal ideation she reported to gain a better sense of ED boarding placement. Patient states she keeps coming to the ED, being sent home, subsequently leaving her needs unaddressed. Patient says she is having suicidal thoughts, but she is able to safety plan and wiling to admit to a [facility] placement. Patient states she just doesn't want to be sent home. She stated she could admit to [facility] in [place] in the morning and knew how to access placement. This clinician asked if a call needed to be made regarding placement and she stated, no, I can just go. This clinician asked if she was simply seeking a place to stay overnight and patient replied yes. Patient then asked for two sandwiches and a milk which was provided after clearance from ED provider. Patient does not require a one to one at this time.
--- OUTSIDE RECORDS SUMMARY | 2025-03-12 01:08 | XMS_ITS | Clinical Summary ---
Author Organization [facility] Prior to 08/30/24 Address [address] [place] [address] Care Team Providers Care Foxing Closer Name Role Phone Unavailable Primary Care Provider [...] Advance Directives For more information, please contact: [phone] Documents on File Type Date Recorded Patient Budget Accountant Expl anation Advance Directive and Living Will [...]
--- OUTSIDE RECORDS SUMMARY | 2025-03-12 01:08 | XMS_ITS | Encounter Summary ---
Author Organization [facility] Address [address] [place] [address] Phone Care Team Providers Care Machine Made Shoe Unit Worker Name Role Phone Provider, No Primary Care Provider Unavailabl e Encounter Details Date Type Department Care Team (Late st Contact Info) Description 01/13/2025 External Contact EXTERNAL LOCATION [address] [place] [phone] Vince, Rosa Provider Social History Tobacco [...] AM EDT Emergency Discharge Alert Powered by [id number] Patient Name: WAGNER MONTEJO : [id number] Patient Patient MR#: [id number] Source Facility: [facility] ADM-ClinicianName: UNKNOWN UNKNOWNCode: UNKNOWNAA: NPI ATT-ClinicianName: DANIELA MANNINGCode: [id number]: AdmitDateTime: 2025-01-13 00:35:00 DischargeDateTime: 2025-01-13 11:12:00 Admit Reason Code: suicidal ideations AllergenTypeIDDescSeverityCodeReactionCodeIDDate No Allergy Found DiagnosisCodeDes R45.851Suicidal ideations Electronically signed by Interface, Retail Office Associate [facility] at 01/13/2025 11:15 AM EDT documented in this encounter Plan of Treatment Not on file documented as of this encounter Visit Diagnoses Not on filedocumented in this encounter Additional Health Concerns Infection Onset Date Last Indicated Resolved Time Respiratory Rule-Out 02/16/2025 02/16/2025 025 2:44 AM EST documented as of this encounter Care Teams Machine Made Shoe Unit Worker Relationship Specialty Start Date End Date Provider, No PCP - General 12/01/24 documented as of this encounter
--- OUTSIDE RECORDS SUMMARY | 2025-03-12 01:08 | XMS_ITS | Encounter Summary ---
Author Organization [facility] Address [address] [place] [address] Phone Care Team Providers Care Food Service Utility Worker Name Role Phone Provider, No Primary Care Provider Unavailabl e Encounter Details Date Type Department Care Team (Late st Contact Info) Description 02/09/2025 External Contact EXTERNAL LOCATION [address] [place] [phone] Luisxdelfino, Default Provider Social History Tobacco [...] AM EST Emergency Discharge Alert Powered by [id number] Patient Name: WAGNER MONTEJO : [id number] Patient Patient MR#: [id number] Source Facility: [facility] AdmitDateTime: 2025-02-09 07:39:00 DischargeDateTime: 2025-02-09 17:37:00 [...] documented as of this encounter Care Teams Food Service Utility Worker Relationship Specialty Start Date End Date Provider, No PCP - General 12/01/24 documented as of this encounter
--- OUTSIDE RECORDS SUMMARY | 2025-03-12 01:08 | XMS_ITS | Clinical Summary ---
Author Organization [facility] Address [address] [place] [address] Phone Care Team Providers Care Stave Block Splitter Name Role Phone Pcp, Unknown Primary Care Provider Grace Carpenter MD Unavailable [phone] Allergies Active Allergy Reactions Criticality Noted Date [...] Date Type Department Care Team Description 12/29/2024 [facility] RISK SCORES SYSTEM GENERATED External System Generated Encounter [address] [place] [address] Unknown, Unknown, from Last 3 Months Immunizations [...] EDT) SODIUM 135 133 - 146 mmol/L [facility] CHLORIDE 100 96 - 108 mmol/L [facility] POTASSIUM 3.8 3.3 - 5.1 mmol/L [facility] CO2 23 21 - 35 mmol/L [facility] BUN 20(H) 6 - 19 mg/dL [facility] CREATININE 0.60 0.5 - 1.5 mg/dL [facility] GLUCOSE 85 70 - 99 mg/dL [facility] CALCIUM 8.7 8.4 - 10.3 mg/dL [facility] EGFR 111 >59 mL/min/1.7 3m2 [facility] Comment:Estimated glomerular filtration rate calculated using the CKD-EPI refit equation. ANION GAP 16 10 - 20 mmol/L [facility] Blood 09/01/2023 2:54 AM EDT 09/01/2023 2:58 AM EDT us Shawn Villa MD LAB BLOOD BKR ORDERABLES Fi nal Result Performing Organization Address City/State/[facility] Co de Phone Number [address] [address] * TSH with reflex (08/02/2023 10:12 AM EDT) TSH 3.20 0.27 - 4.20 uIU/mL [facility] Blood 08/02/2023 10:1 2 AM EDT 08/02/2023 10:26 AM EDT us Goldy Ventura MD LAB BLOOD BKR ORDERABLES F inal Result Performing Organization Address City/State/[facility] Co de Phone Number [address] [address] * (ABNORMAL) Lipid panel (08/02/2023 10:12 AM EDT) HDL 57 mg/dL [facility] Comment: Interpretation <40 mg/dL: Low HDL cholesterol (major risk factor for CHD) Greater than or equal to 60 mg/dL: High HDL cholesterol ( negative risk factor for CHD) HDL - cholesterol is affected by a number of factors, e.g. smoking, excerise, hormones, sex and age. CHOLESTEROL 176 0 - 240 mg/dL [facility] TRIGLYCERIDES 88 30 - 160 mg/dL [facility] LDL 101 50 - 129 mg/dL [facility] Comment: LDL levels in terms of risk for coronary heart disease: <100 mg/dL: Optimal 100-129 mg/dL: Near or above optimal 130-159 mg/dL: Borderline high 160-189 mg/dL: High >190 mg/dL: Very High CARDIAC RISK RATIO 3.1(L) 3.3 - 4.4 [facility] Blood 08/02/2023 10:1 2 AM EDT 08/02/2023 10:27 AM EDT us Goldy Ventura MD LAB BLOOD BKR ORDERABLES F inal Result Performing Organization Address [facility] Co de Phone Number [address] [address] * (ABNORMAL) [place] level (07/28/2023 11:54 PM EDT) LITHIUM 0.24(L) 0.5 - 1.00 mmol/L [facility] 07/28/2023 11:5 4 PM EDT 07/29/2023 12:03 AM EDT us Alannah Melvin PA-C LAB BLOOD BKR ORDERAB LES Final Result Performing Organization Address [facility] Co de Phone Number [address] [address] from Last 3 Months or Most Recently Relevant to Health Maintenance [place] [address] [address] [place], [place] [address] [place], [place] [address]P [employer] Advance Directives For more information, please contact: [phone] (9AM - 5PM [facility], Sunday-Sunday) * Full Code (Latest Code Status [...] 5:28 PM 04/10/2018 1:54 PM Care Teams Stave Block Splitter Relationship Specialty Start Date End Date Pcp, Unknown PCP - General 10/08/22 Grace Kahn MD [address] [place] [address], [address] [place] [address] [email or web address] Insurance Assigned Provider 02/14/25 Additional Source Comments The information contained in this document represents components of the legal health record. It is not the complete legal health record.[facility]
--- OUTSIDE RECORDS SUMMARY | 2025-03-12 01:08 | XMS_ITS | Encounter Summary ---
Author Organization [facility] Address [address] [place] [address] Phone Care Team Providers Care Electronic News Gathering Camera Person Name Role Phone Provider, No Primary Care Provider Unavailabl e Encounter Details Date Type Department Care Team (Late st Contact Info) Description 01/14/2025 External Contact EXTERNAL LOCATION [address] [place] [phone] Vince, Rosa Provider Social History Tobacco [...] AM EDT Emergency Discharge Alert Powered by [id number] Patient Name: WAGNER MONTEJO : [id number] Patient Patient MR#: [id number] Source Facility: [facility] ADM-ClinicianName: UNKNOWN UNKNOWNCode: UNKNOWNAA: NPI ATT-ClinicianName: UNKNOWN UNKNOWNCode: UNKNOWNAA: AdmitDateTime: 2025-01-14 06:58:00 DischargeDateTime: 2025-01-14 10:49:00 Admit Reason Code: SI AllergenTypeIDDescSeverityCodeReactionCodeIDDate No Allergy Found DiagnosisCodeDdavid grant [facility] R45.851Suicidal ideations documented in this encounter Plan of Treatment Not on file documented as of this encounter Visit Diagnoses Not on filedocumented in this encounter Additional Health Concerns Infection Onset Date Last Indicated Resolved Time Respiratory Rule-Out 02/16/2025 02/16/2025 025 2:44 AM EST documented as of this encounter Care Teams Electronic News Gathering Camera Person Relationship Specialty Start Date End Date Provider, No PCP - General 12/01/24 documented as of this encounter
--- OUTSIDE RECORDS SUMMARY | 2025-03-12 01:08 | XMS_ITS | Encounter Summary ---
Author Organization [facility] Address [address] [place] [address] Phone Care Team Providers Care Mexican Food Maker Name Role Phone Provider, No Primary Care Provider Haroon e Encounter Details Date Type Department Care Team (Late st Contact Info) Description 09/17/2024 External Contact EXTERNAL LOCATION [address] [place] [phone] Vince, Rosa Provider Social History Tobacco [...] AM EDT Emergency Discharge Alert Powered by [email or web address] Patient Name: WAGNER MONTEJO : [id number] Patient Patient MR#: [id number] Source Facility: [facility] ATT-ClinicianName: DAMARI REYNAGACode: [id number]: NPI AdmitDateTime: 2024-09-17 01:24:00 DischargeDateTime: 2024-09-17 10:00:00 Admit Reason Description: Detox AllergenTypeIDDescSeverityCodeReactionCodeIDDate 1903ALOE [id number] 00:00:00 1020VITAMIN E (D-ALPHA TOCOPHEROL)[id number] 00:00:00 [id number] 00:00:00 [id number] 00:00:00 DiagnosisCodeDesc Z76.5Malingerer (conscious simulation) Discharge Disposition: [...] documented as of this encounter Care Teams Mexican Food Maker Relationship Specialty Start Date End Date Provider, No PCP - General 12/01/24 documented as of this encounter
--- OUTSIDE RECORDS SUMMARY | 2025-03-12 01:08 | XMS_ITS | Clinical Summary ---
Author Organization [facility] Address [address] [place] [address] Phone Care Team Providers Care Laborer Salvage Name Role Phone Provider, No Primary Care [...] Dental abrasion 06/17/2024 Suicidal ideation 06/16/2024 Schizophrenia ([facility]) 06/16/2024 Cocaine abuse 10/10/2022 Resolved Problems Problem Noted Date Diagnosed Date Resolved Date Trauma and stressor-related disorder 08/02/2023 05/07/2024 Suicidal ideations 05/29/2022 Major depression, recurrent 10/11/2021 05/07/2024 Substance induced mood disorder ([facility]) 06/11/1905/07/2024 Affective psychosis, bipolar ([facility]) 01/03/2019 05/07/2024 Encounters Date Type Department Care Team Description 02/24/2025 10:47 AM EST - 02/24/2025 11:55 AM EST Emergency [facility] ADULT EMERGENCY DEPARTMENT [address] [place] [address] Ariane Marcus MD Depression, unspecified depression type (Primary Dx) Discharge Disposition: DISCHARGED TO HOME/ASSISTED LIVING/SELF CARE (ROUTINE DISCHARGE) 02/24/2025 Travel 02/21/2025 10:37 PM EST - 02/22/2025 5:55 AM [facility] ADULT EMERGENCY DEPARTMENT [address] [address] Reshma Hernandez MD Unhappiness (Primary Dx) Discharge Disposition: DISCHARGED TO HOME/ASSISTED LIVING/SELF CARE (ROUTINE DISCHARGE) 02/21/2025 Travel 02/17/2025 2:17 PM EST - 02/17/2025 3:08 PM [facility] ADULT EMERGENCY DEPARTMENT [address] [place], [place] [phone] Sherita Fontana MD Paronychia of finger of right hand (Primary Dx) Discharge Disposition: DISCHARGED TO HOME/ASSISTED LIVING/SELF CARE (ROUTINE DISCHARGE) 02/17/2025 Travel 02/16/2025 2:30 AM EST - 02/16/2025 11:59 PM [facility] ADULT EMERGENCY DEPARTMENT [address] [place] [address] 02/15/2025 11:12 PM EST - 02/16/2025 9:25 AM [facility] ADULT EMERGENCY DEPARTMENT [address] [place] [address] Almita Sierra DO Asher, Shellie, MD Suicidal ideation (Primary Dx) Discharge Disposition: DISCHARGED/TRANSFERRE D TO A PSYCHIATRIC HOSPITAL OR PSYCHIATRIC DISTINCT PART UNIT OF A HOSPITAL 02/12/2025 External Contact EXTERNAL LOCATION [address] [place] [address] Hixny, Default Provider 02/09/2025 External Contact EXTERNAL LOCATION [address] [place] [address] Hixny, Default Provider 02/09/2025 - 02/09/2025 2:18 AM [facility] ADULT EMERGENCY DEPARTMENT [address] [place] [phone] Fred Booth MD Sadness (Primary Dx); Dental infection Discharge Disposition: DISCHARGED TO HOME/ASSISTED LIVING/SELF CARE (ROUTINE DISCHARGE) 02/08/2025 7:40 AM EST - 02/08/2025 12:30 PM [facility] ADULT EMERGENCY DEPARTMENT [address] [place] [address] Goldy Logan MD Stimulant use disorder (Primary Dx); Behavioral and emotional disorders with onset usually occurring in childhood and adolescence Discharge Disposition: DISCHARGED TO HOME/ASSISTED LIVING/SELF CARE (ROUTINE DISCHARGE) 02/08/2025 Travel 02/06/2025 10:49 AM EST - 02/06/2025 11:52 AM [facility] ADULT EMERGENCY DEPARTMENT [address] [place] [address] Jerry Pompa MD Pain, dental (Primary Dx) Discharge Disposition: DISCHARGED TO HOME/ASSISTED LIVING/SELF CARE (ROUTINE DISCHARGE) 01/23/2025 11:29 PM EDT - 01/26/2025 12:30 PM EDT [facility] ADULT EMERGENCY DEPARTMENT [address] [place] [address] Almita Sierra DO Cordi, Heidi, MD Pinto, Dorcas, MD Gillespie, Geoffry, MD Waxman, Michael, MD Bracey, Alexander, MD Brodie, Amy Londono MD Cocaine use disorder, severe ([facility]) (Primary Dx); Substance use disorder Discharge Disposition: DISCHARGED TO HOME/ASSISTED LIVING/SELF CARE (ROUTINE DISCHARGE) 01/23/2025 Travel 01/14/2025 External Contact EXTERNAL LOCATION [address] [place] [phone] Hixny, Default Provider 01/13/2025 External Contact EXTERNAL LOCATION [address] [place] [phone] Hixny, Default Provider 01/12/2025 Travel 01/10/2025 4:50 AM EDT - 01/12/2025 11:50 AM EDT [facility] ADULT EMERGENCY DEPARTMENT [address] [place] [address] Grajny, Mansi, Almita Kitchen DO Aly, Iman, MD Palmieri, Timothy, MD Snyder, Howard, MD Chow, Yvonne, MD Hogan, Kathryn A, MD Suicidal ideations (Primary Dx) Discharge Disposition: DISCHARGED TO HOME/ASSISTED LIVING/SELF CARE (ROUTINE DISCHARGE) 01/04/2025 4:19 AM EDT - 01/04/2025 10:10 AM EDT [facility] ADULT EMERGENCY DEPARTMENT [address] [place], [place] [address] Denisha Ribeiro MD Vines, Spenser, DO Suicidal ideation (Primary Dx) Discharge Disposition: DISCHARGED TO HOME/ASSISTED LIVING/SELF CARE (ROUTINE DISCHARGE) 12/28/2024 4:59 AM EDT - 12/28/2024 12:32 PM EDT [facility] ADULT EMERGENCY DEPARTMENT [address] [place], [place] [address] Radha Mckoy MD Waldrop, Michael, MD Encounter for psychological evaluation (Primary Dx) Discharge Disposition: DISCHARGED TO HOME/ASSISTED LIVING/SELF CARE (ROUTINE DISCHARGE) 12/22/2024 1:37 AM EDT - 12/22/2024 6:36 AM EDT [facility] ADULT EMERGENCY DEPARTMENT [address] [place], [place] [address] Hua Masterson MD Suicidal thoughts (Primary Dx) Discharge Disposition: DISCHARGED TO HOME/ASSISTED LIVING/SELF CARE (ROUTINE DISCHARGE) 12/11/2024 External Contact EXTERNAL LOCATION [address] [place] [phone] Coxny, Default Provider from Last 3 Months Social History Tobacco [...] URINE CULTURE STAT 12/28/2024 8:28 AM EDT LIPID PANEL WITH RFLX DIRECT [...] CALCULATION (BAZETT) 446 ms GE MUSE P [place] 83 degrees GE MUSE R [place] 77 degrees GE MUSE T Wave [place] 67 degrees GE MUSE 02/16/2025 2:29 AM EST 02/17/2025 9:56 AM EST Impressions GE MUSE - 02/17/2025 9:56 AM EST NORMAL SINUS RHYTHM POSSIBLE LEFT ATRIAL ENLARGEMENT MINIMAL VOLTAGE CRITERIA FOR LVH, MAY BE NORMAL VARIANT ( [place] product ) BORDERLINE ECG Confirmed by Ricardo Gomez ([id number]) on 02/17/2025 9:56:37 AM Narrative Procedure Note Ricardo Gomez MD PhD - 02/17/2025 IMPRESSION: NORMAL SINUS RHYTHM POSSIBLE LEFT ATRIAL ENLARGEMENT MINIMAL VOLTAGE CRITERIA FOR LVH, MAY BE NORMAL VARIANT ( [place] product) BORDERLINE ECG Confirmed by Ricardo Gomez ([id number]) on 02/17/2025 9:56:37 AM Trevor ZIMMERMAN ECG ORDERABLES Final Resu lt UZAIR HU * Rapid Covid-19 (POC) (02/16/2025 2:24 AM EST) Only the most recent of2 resultswithin the time period is included. Rapid Covid 19 Negative Negative, Invalid 02/16/2025 2:44 AM [facility] Comment:The [employer]. ID NOW COVID-19 was designated to detect the causative agent of COVID-19. [employer] was granted Emergency Use Authorization (EUA) from the FDA to distribute this test kit. Negative results do not preclude SARS-CoV-2 infection and should not be used as the sole basis for patient management decisions. Swab Both anterior nares / Unknown 02/16/2025 2:24 AM EST 02/16/2025 2:44 AM EST [facility] LABORATORY - 02/16/2025 2:44 AM EST Performed at:[address] [place] [address] Almita Sierra DO LAB POINT OF CARE T EST DOCKED DEVICE UNSOLICITED RESULTS Final Result Performing Organization Address [facility] Co de Phone Number [facility] [address] [place] [address], [place] * (ABNORMAL) Drug Screen Panel, Urine (02/16/2025 2:11 AM EST) Only the most recent of2 resultswithin the time period is included. Amphetamines, Urine Negative Negative 02/16/2025 3:04 AM [facility] Comment: I-Negative THRESHOLD 500 NG/ML Barbiturates, Urine Negative Negative 02/16/2025 3:04 AM [facility] Comment: I-Negative THRESHOLD 200 NG/ML Cocaine Metabolite, Urine Positive(A) Negative 02/16/2025 3:04 AM [facility] Comment: I-Positive THRESHOLD 150 NG/ML PRESUMPTIVE POSITIVE BY SCREENING METHOD. THIS RESULT HAS NOT BEEN CONFIRMED BY A CONFIRMATORY TECHNIQUE. Opiates, Urine Negative Negative 02/16/2025 3:04 AM [facility] Comment: I-Negative THRESHOLD 200 NG/ML Benzodiazepines, Urine Negative Negative 02/16/2025 3:04 AM [facility] Comment: I-Negative THRESHOLD 200 NG/ML Methadone, Urine Negative Negative 02/17/20 3:04 AM [facility] Comment: I-Negative THRESHOLD 300 NG/ML Phencyclidine (PCP), Urine Negative Negative 02/16/2025 3:04 AM [facility] Comment: I-Negative THRESHOLD 25 NG/ML Cannabinoids, Urine Negative Negative 02/16/2025 3:04 AM [facility] Comment: I-Negative THRESHOLD 50 NG/ML Urine Urine specimen obtained by clean catch procedure / Unknown Non-blood Collection / Unknown 02/16/2025 2:11 AM EST 02/16/2025 2:25 AM EST us Trevor ZIMMERMAN LAB URINE ORDERABLES Final Result [facility] [address] [place] [address], [place] * Urinalysis With Reflex To Urine Culture (02/16/2025 2:11 AM EST) Only the most recent of3 resultswithin the time period is included. Color Yellow Yellow, Dark Yellow 02/16/2025 2:33 AM [facility] Clarity Clear Clear 02/16/2025 2:33 AM [facility] Leukocytes Negative Negative 02/16/2025 2:33 AM [facility] Nitrite Negative Negative 02/16/2025 2:33 AM [facility] Blood Negative Negative, NEG 02/16/2025 2:33 AM [facility] Glucose Negative Negative 02/16/2025 2:33 AM [facility] Ketones Negative Negative 02/16/2025 2:33 AM [facility] pH 6.0 5.0 - 8.0 pH 02/16/2025 2:33 AM [facility] Specific [place], UA 1.023 1.002 - 1.029 02/16/2025 2:33 AM [facility] Bilirubin Negative Negative, NEG 02/16/2025 2:33 AM [facility] Urobilinogen 0.2 0.2, 1.0 mg/dL 02/16/2025 2:33 AM [facility] Protein Negative Negative 02/16/2025 2:33 AM [facility] Urine Urine specimen obtained by clean catch procedure / Unknown Non-blood Collection / Unknown 02/16/2025 2:11 AM EST 02/16/2025 2:25 AM EST us Trevor ZIMMERMAN LAB URINE ORDERABLES Final Result [facility] [address] [place] [address], [place] * (ABNORMAL) Automated Differential (02/16/2025 2:08 AM EST) Only the most recent of2 resultswithin the time period is included. Neutrophils % 51.5 41.0 - 67.0 % 02/16/2025 3:08 AM [facility] Lymphocytes % 33.4 28.0 - 42.0 % 02/16/2025 3:08 AM [facility] Monocytes % 10.2(H) 4.0 - 9.0 % 02/16/2025 3:08 AM [facility] Eosinophils % 3.8 0.0 - 5.0 % 02/16/2025 3:08 AM [facility] Basophils % 0.8 0.0 - 1.0 % 02/16/2025 3:08 AM [facility] Immature Granulocytes % 0.3 0.0 - 1.0 % 02/16/2025 3:08 AM [facility] Absolute Neutrophils 5.12 1.60 - 6.20 10*3/uL 02/16/2025 3:08 AM [facility] Absolute Lymphocytes 3.33 1.10 - 3.90 10*3/uL 02/16/2025 3:08 AM [facility] Absolute Monocytes 1.02(H) 0.20 - 0.80 10*3/uL 02/16/2025 3:08 AM [facility] Absolute Eosinophils 0.38 0.00 - 0.50 10*3/uL 02/16/2025 3:08 AM [facility] Absolute Basophils 0.08 0.00 - 0.10 10*3/uL 02/16/2025 3:08 AM [facility] Absolute Immature Granulocytes 0.03 0.00 - 0.10 10*3/uL 02/16/2025 3:08 AM [facility] Blood Venous blood / Unknown Venipuncture / Unknown 02/16/2025 2:08 AM EST 02/16/2025 2:27 AM EST us Trevor ZIMMERMAN LAB BLOOD ORDERABLES Final Result Performing Organization Address City/State/[facility] Co de Phone Number [facility] [address] [place] [address], [place] * (ABNORMAL) Complete Blood Count (02/16/2025 2:08 AM EST) Only the most recent of2 resultswithin the time period is included. WBC 10.0(H) 4.0 - 9.3 10*3/uL 02/16/2025 3:08 AM [facility] Hemoglobin 13.9 11.0 - 16.7 g/dL 02/16/2025 3:08 AM [facility] Hematocrit 40.6 33.0 - 49.0 % 02/16/2025 3:08 AM [facility] RBC 4.56 4.00 - 5.70 10*6/uL 02/16/2025 3:08 AM [facility] MCV 89.0 82.3 - 93.2 fL 02/16/2025 3:08 AM [facility] MCH 30.5 27.5 - 32.2 pg 02/16/2025 3:08 AM [facility] MCHC 34.2 32.5 - 35.5 g/dL 02/16/2025 3:08 AM [facility] RDW 12.3 12.0 - 15.0 % 02/16/2025 3:08 AM [facility] Platelet Count 298 130 - 350 10*3/uL 02/16/2025 3:08 AM [facility] MPV 10.0 7.5 - 10.7 fL 02/16/2025 3:08 AM [facility] NRBC % 0.0 <=0.0 % 02/16/2025 3:08 AM [facility] Absolute NRBC 0.00 <=0.00 10*3/uL 02/16/2025 3:08 AM [facility] Blood Venous blood / Unknown Venipuncture / Unknown 02/16/2025 2:08 AM EST 02/16/2025 2:27 AM EST Anima[employer] PA LAB BLOOD ORDERABLES Final Result Performing Organization Address City/[facility] Co de Phone Number [facility] [address] [place] [address], [place] * Ethanol (02/16/2025 2:08 AM EST) Only the most recent of2 resultswithin the time period is included. Ethanol <10 <=10 mg/dL 02/16/2025 3:35 AM [facility] Comment: I-Result < dynamic range M-Verified value by repeat analysis > = 50 mg/dl (legally impaired) >= 80 mg/dl (legally intoxicated) Blood Venous blood / Unknown Venipuncture / Unknown 02/16/2025 2:08 AM EST 02/16/2025 2:26 AM EST Animaile PA LAB BLOOD ORDERABLES Final Result Performing Organization Address [facility]/ZIP Co de Phone Number [facility] [address] [place] [address], [place] * (ABNORMAL) Acetaminophen Level (02/16/2025 2:08 AM EST) Only the most recent of2 resultswithin the time period is included. Acetaminophen 0.3(L) Therapeutic Range: 10-30 ug/mL ug/mL 02/16/2025 3:35 AM EST [facility] Comment: Toxic: Greater than 150 ug/mL at 4 hours after ingestion or half-life greater than 4 hours. Blood Venous blood / Unknown Venipuncture / Unknown 02/16/2025 2:08 AM EST 02/16/2025 2:26 AM EST [employer] LAB BLOOD ORDERABLES Final Result Performing Organization Address [facility] Co de Phone Number [facility] [address] [place] [address], [place] * Salicylate (02/16/2025 2:08 AM EST) Only the most recent of2 resultswithin the time period is included. Salicylate <1.5 Therapeutic Range: 2-30 mg/dL mg/dL 02/16/2025 3:35 AM EST [facility] Comment: I-Result < dynamic range M-Verified value by repeat analysis Therapeutic: Analgesia: Up to 20 mg/dl Antipyresis: Up to 20 mg/dl Anti-inflammatory: Up to 30 mg/dl Toxic: >30.0 mg/dl Blood Venous blood / Unknown Venipuncture / Unknown 02/16/2025 2:08 AM EST 02/16/2025 2:26 AM EST [employer] PA LAB BLOOD ORDERABLES Final Result Performing Organization Address [facility] Co de Phone Number [facility] [address] [place] [address], [place] * (ABNORMAL) Comprehensive Metabolic Panel (02/16/2025 2:08 AM EST) Only the most recent of2 resultswithin the time period is included. Sodium 144 135 - 145 mmol/L 02/16/2025 3:13 AM EST [facility] Potassium 3.4 3.4 - 5.2 mmol/L 02/16/2025 3:13 AM [facility] Chloride 106 99 - 109 mmol/L 02/16/2025 3:13 AM [facility] Carbon Dioxide 31(H) 21 - 30 mmol/L 02/16/2025 3:13 AM [facility] Comment: High LDH can falsely elevate CO2 results. If elevated LDH levels are clinically suspected, interpret CO2 with caution. Blood Urea Nitrogen (BUN) 23(H) 7 - 22 mg/dL 02/16/2025 3:13 AM [facility] Creatinine 0.85 0.60 - 1.30 mg/dL 02/16/2025 3:13 AM [facility] Glucose 142(H) 65 - 99 mg/dL 02/16/2025 3:13 AM [facility] Calcium 9.0 8.6 - 10.3 mg/dL 02/16/2025 3:13 AM [facility] Anion Gap 7 5 - 15 mmol/L 02/16/2025 3:13 AM [facility] eGFR 85 >=60 mL/min/1. 73m*2 02/16/2025 3:13 AM [facility] Comment: Calculation based on the Chronic Kidney Disease Epidemiology Collaboration (CKD- EPI) equation refit without adjustment for race. *This eGRF calculation is based on the 5254-XMS-QQF creatinine equations for adults designed to estimate glomerular filtration rate (eGFR) without race adjustment factors. *This eGFR results are indexed to standard body surface area (BSA) 1.73 M(2). *eGFR results should only be used for adult patients >=18 years old. *Use of nonindexed eGFR values (mL/min) should be considered for drug dosing decisions. Total Protein 6.4 6.0 - 8.0 g/dL 02/16/2025 3:13 AM [facility] Albumin 3.9 3.5 - 5.2 g/dL 02/16/2025 3:13 AM [facility] Globulin, Total 2.5 g/dL 3:13 AM [facility] A/G Ratio 1.6 02/16/2025 3:13 AM [facility] Bilirubin, Total 0.5 0.1 - 1.2 mg/dL 02/16/2025 3:13 AM [facility] Alanine Aminotransferase (ALT) 15 7 - 52 U/L 02/16/2025 3:13 AM [facility] Aspartate Aminotransferase (AST) 20 5 - 45 U/L 02/16/2025 3:13 AM [facility] Alkaline Phosphatase 78 34 - 104 U/L 02/16/2025 3:13 AM [facility] Blood Venous blood / Unknown Venipuncture / Unknown 02/16/2025 2:08 AM EST 02/16/2025 2:26 AM EST us Trevor ZIMMERMAN LAB BLOOD ORDERABLES Final Result Performing Organization Address City/[facility]/ZIP Co de Phone Number [facility] [address] [place] [address], * (ABNORMAL) Urine Culture - [facility] (01/10/2025 7:23 PM EDT) Urine Culture 10,000 CFU/mL Streptococcus mitis group(A) 01/12/2025 8:03 PM EDT [facility] Comment:Along with Urine Culture <10,000 colonies/ml. Insignificant colony count. No further workup. 01/12/2025 8:03 PM EDT [facility] Urine Urine specimen obtained by clean catch procedure / Unknown Non-blood Collection / Unknown 01/10/2025 7:23 PM EDT 01/10/2025 7:28 PM EDT Narrative [facility] - 01/12/2025 8:03 PM EDT The performance characteristics of the Microbial Identification methods used were determined by the Microbiology Laboratory at the [facility]. They have not been cleared or approved by the U.S. Food and Drug Administration. us Mansi Wills MD LAB MICROBIOLOGY - GENERAL ORD ERABLES Final Result Performing Organization Address City/[facility]/ZIP Co de Phone Number [facility] [address] [place] [address], [place] * Lipid Panel with RFLX Direct LDL - [facility] (06/22/2024 8:05 PM EDT) Cholesterol 143 mg/dL 06/22/2024 8:26 PM EDT [facility] Comment: DESIRABLE <200 mg/dL BORDER LINE 200-239 mg/dL HIGH RISK >240 mg/dL Triglycerides 72 mg/dL 06/22/2024 8:26 PM EDT [facility] Comment: DESIRABLE <150 mg/dL BORDER LINE 150-199 mg/dL HIGH RISK >200 mg/dL HDL Cholesterol 50.0 mg/dL 8:26 PM EDT [facility] Comment: DESIRABLE >65 mg/dL BORDERLINE 45-65 mg/dL HIGH RISK <45 mg/dL LDL Calculated 79 <=100 mg/dL 06/22/2024 8:26 PM EDT [facility] VLDL CHOLESTEROL 14.4 5 - 40 mg/dL 06/22/2024 8:26 PM EDT [facility] CHOL/HDL RATIO 2.9 0.0 - 5.0 06/22/2024 8:26 PM EDT [facility] Blood Venous blood / Unknown Venipuncture / Unknown 06/22/2024 8:05 PM EDT 06/22/2024 8:08 PM EDT us Felice Bonilla MD LAB BLOOD ORDERABLES Final Re sult [facility] [address] [place] [phone] from Last 3 Months or Most Recently Relevant to Health Maintenance Insurance [employer] Member Subscriber Plan / Payer (Ef fective 2024-Present) Name:Ashley Anton Member ID:Not on file Relation to Subscriber:Self Name:Desean Ashley Hyman Subscriber ID:Not on file Payer ID:[id number] Group ID:Not on file Type:Not on file Address: [address] [place] [address] Advance Directives For more information, please contact: [phone] (Available ) * Resuscitation Status (Latest Code Status on File) Date Activated Date Inactivated Comments 06/16/2024 3:06 PM 06/17/2024 1:03 PM Question Answer Comments If no pulse and/or not breathing: Attempt CPR If pulse and breathing present: Intubati on and 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
--- OUTSIDE RECORDS SUMMARY | 2025-03-12 01:08 | XMS_ITS | Clinical Summary ---
Author Organization [facility] Address [facility] [place] [address] Care Team Providers Care Bereavement Program Coordinator Name Role Phone None Primary Care Provider [...] - 199 mg/dL 08/09/2024 8:11 PM EDT [facility] Comment:Glucose Concentratio n >=200 mg/dL plus symptoms is consistent with Diabetes Mellitus. Blood Urea Nitrogen 20 8 - 20 mg/dL 08/09/2024 8:11 PM EDT [facility] Creatinine 0.76 0.70 - 1.50 mg/dL 08/09/2024 8:11 PM EDT [facility] Sodium 141 135 - 145 mMol/L 08/09/2024 8:11 PM EDT [facility] Potassium 3.9 3.5 - 5.0 mMol/L 08/09/2024 8:11 PM EDT [facility] Chloride 103 98 - 107 mMol/L 08/09/2024 8:11 PM EDT [facility] Carbon Dioxide 25 22 - 31 mMol/L 08/09/2024 8:11 PM EDT [facility] Anion Gap 13 5 - 15 mMol/L 08/09/2024 8:11 PM [facility] Calcium 9.4 8.5 - 10.5 mg/dL 08/09/2024 8:11 PM [facility] Protein, Total 6.9 6.1 - 8.0 g/dL 08/09/2024 8:11 PM [facility] Albumin 4.2 3.2 - 5.2 g/dL 08/09/2024 8:11 PM [facility] Aspartate Aminotransferase 18 <=39 unit/L 08/09/2024 8:11 PM [facility] Alanine Aminotransferase 21 0 - 55 unit/L 08/09/2024 8:11 PM [facility] Alkaline Phosphatase 86 35 - 130 unit/L 08/09/2024 8:11 PM [facility] Bilirubin, Total 0.6 <=1.3 mg/dL 08/09/2024 8:11 PM [facility] Est Glomerular Filtration Rate - Male 111 mL/min/1. 73 m 08/09/2024 8:11 PM [facility] Comment: This patient's estimated GFR was [...] 97 mL/min/1. 73 m 08/09/2024 8:11 PM [facility] Comment: This patient's estimated GFR was [...] Evans MD CHEMISTRY ORDERABLES Final R esult [facility] [address] [place] [address] from Last 3 Months or Most Recently Relevant to Health Maintenance Insurance MEDICAID [place] Care Teams Bereavement Program Coordinator Relationship Specialty Start Date End Date None None PCP - General 08/09/24
--- OUTSIDE RECORDS SUMMARY | 2025-03-12 01:08 | XMS_ITS | Encounter Summary ---
Author Organization [facility] Address [address] [place] [address] Phone Care Team Providers Care Picker Name Role Phone Provider, No Primary Care Provider Unavailabl e Encounter Details Date Type Department Care Team (Late st Contact Info) Description 02/12/2025 External Contact EXTERNAL LOCATION [address] [place] [phone] Vince, Rosa Provider Social History Tobacco [...] 02/15/2025 11:14 PM Marlen Wren RN * [place] Suicide Severity Rating Scale (Screener/Recent Self-Report) Question [...] AM EST Emergency Discharge Alert Powered by [id number] Patient Name: WAGNER MONTEJO : [id number] Patient Patient MR#: [id number] Source Facility: [facility] ATT-ClinicianName: SHAKIR ISAACSCode: [id number]: AdmitDateTime: 2025-02-12 02:15:00 DischargeDateTime: 2025-02-12 08:17:00 Admit [...] documented as of this encounter Care Teams Picker Relationship Specialty Start Date End Date Provider, No PCP - General 12/01/24 documented as of this encounter
--- OUTSIDE RECORDS SUMMARY | 2025-03-12 01:08 | XMS_ITS | Encounter Summary ---
Author Organization [facility] Address [address] [place] [address] Phone Care Team Providers Care Radiological Engineer Name Role Phone Provider, No Primary Care Provider Unavailabl e Encounter Details Date Type Department Care Team (Late st Contact Info) Description 12/11/2024 External Contact EXTERNAL LOCATION [address] [place] [phone] Vince, Rosa Provider Social History Tobacco [...] AM EDT Emergency Discharge Alert Powered by [id number] Patient Name: WAGNER MONTEJO : [id number] Patient Patient MR#: [id number] Source Facility: [facility] ADM-ClinicianName: UNKNOWN UNKNOWNCode: UNKNOWNAA: NPI ATT-ClinicianName: DAMARI REYNAGACode: [id number]: AdmitDateTime: 2024-12-11 01:25:00 DischargeDateTime: 2024-12-11 12:26:00 Admit Reason Code: Back Pain AllergenTypeIDDescSeverityCodeReactionCodeIDDate No Allergy Found DiagnosisCodeDmills-[facility] R45.851Suicidal ideations F32.ADepression, unspecified documented in this encounter Plan of Treatment Not on file documented as of this encounter Visit Diagnoses Not on filedocumented in this encounter Additional Health Concerns Infection Onset Date Last Indicated Resolved Time Respiratory Rule-Out 01/10/2025 01/10/2025 025 7:46 PM EDT Respiratory Rule-Out 02/16/2025 02/16/2025 025 2:44 AM EST documented as of this encounter Care Teams Radiological Engineer Relationship Specialty Start Date End Date Provider, No PCP - General 12/01/24 documented as of this encounter
--- NOTE | 2025-03-12 09:43 | PC.NURSE ---
Attempting to d/c pt and pt stating Im not leaving I need to be re evaluated This RN notified by Jethro in CARE team that pt okay to be d/c for respite bed at 1000. When pt notified pt states I want to see someone in CARE team (despite eval in the middle of the night) CARE team made aware of pt request. Jethro out to speak to pt and reiterate the plan. Pt agitated after, stating I dont want to be evaluated by him, I want someone else or I will leave here and cut my wrist and come right back Dr Shipman, monorail charger operator Hanny and Jethro made aware who will reach out to CARE steam brush operator to discuss next steps.
[2025-03-12 09:46] VITALS: BP 101/58; PULSE 50; RESP 18; TEMP 36.5; O2SAT 98
--- NOTE | 2025-03-12 09:53 | MHC.CARE ---
CARE Team met with pt at the request of ED staff, pt was being discharged to present to [facility] per her request.? Per the assessment: ?At this time, patient does not meet criteria for IPLOC. She denies SI and reports she can be safe in a lower level of care.? Patient reports she can secure placement on her own in [place] at [facility] and is only seeking an overnight stay in the ED.? Patient is able to engage in safety planning and is future oriented. This case has been discussed with HELICOPTER SPECIALIST Tasha Mckeon who is agreeable to discharge patient in the morning at her request.? Also ?Patient is able to safety plan and reports she can be safe in a lower level of care placement.? CARE Team speaks with pt who reports that she has no recollection of that plan and is insistent that she needs to stay to be re-evaluated.? The plan is reiterated and it is explained that respite is a lower level of care that does not require remaining in the ED.? Pt reports no intention of leaving until she sees another clinician and stated she would return if discharged.? Pt is advised that an immediate return could likely result in a similar outcome. Pt then referred to this clinician as a ?faggot?.
[2025-03-12 10:16] VITALS: BP 101/58; PULSE 50; RESP 18; TEMP 36.5; O2SAT 98
--- NOTE | 2025-03-12 10:18 | PC.NURSE ---
Unable to do [place] scale, (unaware it needed to be completed prior to d/c as its usually completed on admission), Pt also agitated on d/c. Was evaluated by CARE team twice. Unable to bypass scale on d/c
== END 2025-03-12 10:20 | disposition home or self-care (01) ==
PROVIDERS: Emergency Provider Emergency Medicine; PCP Family Medicine
DX: F32.A Depression, unspecified (principal); R45.851 Suicidal ideations; F64.0 Transsexualism; F17.210 Nicotine dependence, cigarettes, uncomplicated; Z79.899 Other long term (current) drug therapy
CPT/HCPCS: 99284; S9485

== ENCOUNTER 2025-03-30 03:47 | Emergency (ER) | payer OTHER, SELFPAY ==
[2025-03-30 03:54] VITALS: BP 128/62; PULSE 77; RESP 16; TEMP 36.4; O2SAT 96; BMI 23.4
--- NOTE | 2025-03-30 03:56 | ECG_ITS ---
Test Reason : COCAINE USE Blood Pressure : */* mmHG Vent. Rate : 64 BPM Atrial Rate : 64 BPM P-R Int : 166 ms QRS Dur : 98 ms QT Int : 434 ms P-R-T Axes : 72 20 45 degrees QTcB Int : 447 ms Normal sinus rhythm Minimal voltage criteria for LVH, may be normal variant ( [place] product ) Borderline ECG When compared with ECG of 03-Mar-2025 10:23, No significant change was found Referred By: Generic ED Physician Electronically Signed By: GRAHAM CARDOZO
[2025-03-30 04:16] LABS: MANUAL DIFF FLAG NO
[2025-03-30 04:17] LABS: Hematocrit 42.6 % (37.0-47.0); Hemoglobin 14.8 g/dl (12.0-16.0); Imm Gran Abs Auto 0.05 X10*3/uL (0.00-0.03); Imm Gran Pct Auto 0.4 % (0.0-0.4); Lymphocytes Absolute Auto 2.4 X10*3/uL (1.2-4.9); Mean Corpuscular HGB Conc 34.7 g/dl (31.0-35.0); Mean Corpuscular Hemoglobin 30.6 pg (27.0-33.0); Mean Corpuscular Volume 88.0 fL (80.0-98.0); NRBC Abs Auto 0.000 X10*3/uL (0.0-0.012); NRBC Pct Auto 0.0 /100WBC (0.0-0.2); Platelet Count 317 X10*3/uL (160-400); Red Blood Count 4.84 X10*6/uL (4.20-5.50); White Blood Count 12.3 X10*3/uL (4.8-10.8)
[2025-03-30 04:46] LABS: Acetaminophen LAB < 3 mcg/mL (<30); Alanine Aminotransferase 24 U/L (0-31); Albumin Level 4.3 g/dL (3.5-5.0); Alkaline Phosphatase 83 U/L (39-117); Anion Gap 16 (12-20); Aspartate Amino Transferase 28 U/L (5-31); Blood Urea Nitrogen 28 mg/dL (9-16); Calcium 9.2 mg/dL (8.4-10.2); Carbon Dioxide 22 mmol/L (22-29); Chloride 105 mmol/L (96-108); Creatinine Clr Calc Pharmacy 106.8; Estimated Glomerular Filt Rate > 60; Potassium 3.8 mmol/L (3.3-5.1); Salicylate < 5.0 mg/dL (15-30); Sodium 139 mmol/L (135-145); Total Protein 7.5 g/dL (6.5-8.0)
--- OUTSIDE RECORDS SUMMARY | 2025-03-30 04:49 | XMS_ITS | Clinical Summary ---
Author Organization [facility] Address [facility] [place] [address] Care Team Providers Care Library Information Technician Name Role Phone None Primary Care Provider [...] - 199 mg/dL 08/09/2024 8:11 PM EDT [facility] Comment:Glucose Concentratio n >=200 mg/dL plus symptoms is consistent with Diabetes Mellitus. Blood Urea Nitrogen 20 8 - 20 mg/dL 08/09/2024 8:11 PM EDT [facility] Creatinine 0.76 0.70 - 1.50 mg/dL 08/09/2024 8:11 PM EDT [facility] Sodium 141 135 - 145 mMol/L 08/09/2024 8:11 PM EDT [facility] Potassium 3.9 3.5 - 5.0 mMol/L 08/09/2024 8:11 PM EDT [facility] Chloride 103 98 - 107 mMol/L 08/09/2024 8:11 PM EDT [facility] Carbon Dioxide 25 22 - 31 mMol/L 08/09/2024 8:11 PM EDT [facility] Anion Gap 13 5 - 15 mMol/L 08/09/2024 8:11 PM [facility] Calcium 9.4 8.5 - 10.5 mg/dL 08/09/2024 8:11 PM [facility] Protein, Total 6.9 6.1 - 8.0 g/dL 08/09/2024 8:11 PM [facility] Albumin 4.2 3.2 - 5.2 g/dL 08/09/2024 8:11 PM [facility] Aspartate Aminotransferase 18 <=39 unit/L 08/09/2024 8:11 PM [facility] Alanine Aminotransferase 21 0 - 55 unit/L 08/09/2024 8:11 PM [facility] Alkaline Phosphatase 86 35 - 130 unit/L 08/09/2024 8:11 PM [facility] Bilirubin, Total 0.6 <=1.3 mg/dL 08/09/2024 8:11 PM [facility] Est Glomerular Filtration Rate - Male 111 mL/min/1. 73 m 08/09/2024 8:11 PM [facility] Comment: This patient's estimated GFR [...] 97 mL/min/1. 73 m 08/09/2024 8:11 PM [facility] Comment: This patient's estimated GFR [...] Evans MD CHEMISTRY ORDERABLES Final R esult [facility] [address] [place] [address] from Last 3 Months or Most Recently Relevant to Health Maintenance Insurance MEDICAID [place] Care Teams Library Information Technician Relationship Specialty Start Date End Date None None PCP - General 08/09/24
--- OUTSIDE RECORDS SUMMARY | 2025-03-30 04:49 | XMS_ITS | Encounter Summary ---
Author Organization [facility] Address [address] [place] [address] Phone Care Team Providers Care Cd Mixer Name Role Phone Provider, No Primary Care Provider Unavailabl e Encounter Details Date Type Department Care Team (Late st Contact Info) Description 02/09/2025 External Contact EXTERNAL LOCATION [address] [place] [phone] Luisxdelfino, Default Provider Social History Tobacco Use Types Packs/Day Years Used Date Smoking Tobacco: Every Day Cigarettes 1 20.9 Started: 05/14/2004 Smokeless Tobacco: Never Alcohol Use [...] AM EST Emergency Discharge Alert Powered by [id number] Patient Name: WAGNER MONTEJO : [id number] Patient Patient MR#: [id number] Source Facility: [facility] AdmitDateTime: 2025-02-09 07:39:00 DischargeDateTime: 2025-02-09 17:37:00 [...] documented as of this encounter Care Teams Cd Mixer Relationship Specialty Start Date End Date Provider, No PCP - General 12/01/24 documented as of this encounter
--- OUTSIDE RECORDS SUMMARY | 2025-03-30 04:49 | XMS_ITS ---
Author Organization [facility] Address [address] [place] [address] Phone Care Team Providers Care Professor Of Kinesiology Name Role Phone Pcp, Unknown Primary Care Provider Grace Carpenter MD Unavailable [phone] Post Discharge Status:Declined (Declined) Start date:03/16/2025 End date:03/27/2025 Decline reason:Ineligible - Does not meet criteria Related social drivers of health:Child or Family Care, Education, Food, Unemployment, SNAP/WIC Continued Care and Services Coordination
--- OUTSIDE RECORDS SUMMARY | 2025-03-30 04:49 | XMS_ITS | Encounter Summary ---
Author Organization [facility] Address [address] [place] [address] Phone Care Team Providers Care Camouflage Assembler Name Role Phone Provider, No Primary Care Provider Unavailabl e Encounter Details Date Type Department Care Team (Late st Contact Info) Description 02/12/2025 External Contact EXTERNAL LOCATION [address] [place] [phone] Vince, Rosa Provider Social History Tobacco [...] as of this encounter Miscellaneous Notes * SIERRAXDELFINO Discharge Notification - Default Provider Vince - 02/12/2025 2:15 AM EST Emergency Discharge Alert Powered by [id number] Patient Name: WAGNER MONTEJO : [id number] Patient Patient MR#: [id number] Source Facility: [facility] ATT-ClinicianName: SHAKIR ISAACSCode: [id number]: AdmitDateTime: 2025-02-12 02:15:00 DischargeDateTime: 2025-02-12 08:17:00 Admit Reason Code: Suicidal AllergenTypeIDDescSeverityCodeReactionCodeIDDate No Allergy Found DiagnosisCodeD[facility]oma [facility] R45.851Suicidal ideations documented in this encounter Plan of Treatment Not on file documented as of this encounter Visit Diagnoses Not on filedocumented in this encounter Additional Health Concerns Infection Onset Date Last Indicated Resolved Time Respiratory Rule-Out 02/16/2025 02/16/2025 025 2:44 AM EST documented as of this encounter Care Teams Camouflage Assembler Relationship Specialty Start Date End Date Provider, No PCP - General 12/01/24 documented as of this encounter
--- OUTSIDE RECORDS SUMMARY | 2025-03-30 04:49 | XMS_ITS | Clinical Summary ---
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 14 tablet 1 01/13/20 25 Active ibuprofen 400 MG tablet Take 1 tablet by mouth every 6 (six) hours if needed for pain. 07/05/19 25 Active Active Problems Problem Noted Date Diagnosed Date Dental abrasion 06/17/2024 Suicidal ideation 06/16/2024 Schizophrenia ([facility]) 06/16/2024 Cocaine abuse 10/10/2022 Resolved Problems Problem Noted Date Diagnosed Date Resolved Date Trauma and stressor-related disorder 08/02/2023 05/07/2024 Suicidal ideations 05/29/2022 Major depression, recurrent 10/11/2021 05/07/2024 Substance induced mood disorder ([facility]) 06/11/1905/07/2024 Affective psychosis, bipolar ([facility]) 01/03/2019 05/07/2024 Encounters Date Type Department Care Team Description 02/24/2025 10:47 AM EST - 02/24/2025 11:55 AM [facility] ADULT EMERGENCY DEPARTMENT [address] [place], [place] [phone] Ariane Marcus MD Depression, unspecified depression type (Primary Dx) Discharge Disposition: DISCHARGED TO HOME/ASSISTED LIVING/SELF CARE (ROUTINE DISCHARGE) 02/24/2025 Travel 02/21/2025 10:37 PM EST - 02/22/2025 5:55 AM [facility] ADULT EMERGENCY DEPARTMENT [address] [place] [phone] Reshma Hernandez MD Unhappiness (Primary Dx) Discharge Disposition: DISCHARGED TO HOME/ASSISTED LIVING/SELF CARE (ROUTINE DISCHARGE) 02/21/2025 Travel 02/17/2025 2:17 PM EST - 02/17/2025 3:08 PM [facility] ADULT EMERGENCY DEPARTMENT [address] [place], [place] [phone] Sherita Fontana, Paronychia of finger of right hand (Primary Dx) Discharge Disposition: DISCHARGED TO HOME/ASSISTED LIVING/SELF CARE (ROUTINE DISCHARGE) 02/17/2025 Travel 02/16/2025 2:30 AM EST - 02/16/2025 11:59 PM [facility] ADULT EMERGENCY DEPARTMENT [address] [address] 02/15/2025 11:12 PM EST - 02/16/2025 9:25 AM [facility] ADULT EMERGENCY DEPARTMENT [address] [place] [address] Almita Sierra DO Asher, Shellie, MD Suicidal ideation (Primary Dx) Discharge Disposition: DISCHARGED/TRANSFER RED TO A PSYCHIATRIC HOSPITAL OR PSYCHIATRIC DISTINCT PART UNIT OF A HOSPITAL 02/12/2025 External Contact EXTERNAL LOCATION [address] [place] [address] Hixny, Default Provider 02/09/2025 External Contact EXTERNAL LOCATION [address] [place] [address] Hixny, Default Provider 02/09/2025 - 02/09/2025 2:18 AM [facility] ADULT EMERGENCY DEPARTMENT [address] [place] [phone] Fred Booth MD Sadness (Primary Dx); Dental infection Discharge Disposition: DISCHARGED TO HOME/ASSISTED LIVING/SELF CARE (ROUTINE DISCHARGE) 02/08/2025 7:40 AM EST - 02/08/2025 12:30 PM [facility] ADULT EMERGENCY DEPARTMENT [address] [place] [address] Goldy Logan MD Stimulant use disorder (Primary Dx); Behavioral and emotional disorders with onset usually occurring in childhood and adolescence Discharge Disposition: DISCHARGED TO HOME/ASSISTED LIVING/SELF CARE (ROUTINE DISCHARGE) 02/08/2025 Travel 02/06/2025 10:49 AM EST - 02/06/2025 11:52 AM [facility] ADULT EMERGENCY DEPARTMENT [address] [place], [place] [phone] Jerry Pompa MD Pain, dental (Primary Dx) Discharge Disposition: DISCHARGED TO HOME/ASSISTED LIVING/SELF CARE (ROUTINE DISCHARGE) 01/23/2025 11:29 PM EDT - 01/26/2025 12:30 PM EDT [facility] ADULT EMERGENCY DEPARTMENT [address] [place] [address] Almita Sierra DO Cordi, Heidi, MD Pinto, Dorcas, MD Gillespie, Geoffry, MD Waxman, Michael, MD Bracey, Alexander, MD Brodie, Amy Londono MD Cocaine use disorder, severe ([facility]) (Primary Dx); Substance use disorder Discharge Disposition: DISCHARGED TO HOME/ASSISTED LIVING/SELF CARE (ROUTINE DISCHARGE) 01/23/2025 Travel 01/14/2025 External Contact EXTERNAL LOCATION [address] [place] [address] Hixny, Default Provider 01/13/2025 External Contact EXTERNAL LOCATION [address] [place] [address] Hixny, Default Provider 01/12/2025 Travel 01/10/2025 4:50 AM EDT - 01/12/2025 11:50 AM EDT [facility] ADULT EMERGENCY DEPARTMENT [address] [place] [address] Mansi Wills MD Fordahl, Elizabeth, DO Aly, Iman, MD Palmieri, Timothy, MD Snyder, Howard, MD Chow, Yvonne, MD Hogan, Alannah Maxewll MD Suicidal ideations (Primary Dx) Discharge Disposition: DISCHARGED TO HOME/ASSISTED LIVING/SELF CARE (ROUTINE DISCHARGE) 01/04/2025 4:19 AM EDT - 01/04/2025 10:10 AM EDT [facility] ADULT EMERGENCY DEPARTMENT [address] [place], [place] [address] Denisha Ribeiro MD Vines, Spenser, DO Suicidal ideation (Primary Dx) Discharge Disposition: DISCHARGED TO HOME/ASSISTED LIVING/SELF CARE (ROUTINE DISCHARGE) from Last 3 Months Social History Tobacco Use Types Packs/Day Years Used Date Smoking Tobacco: Every Day Cigarettes 1 20.9 Started: 05/14/2004 Smokeless Tobacco: Never Tobacco Cessation:Ready [...] METABOLIC PANEL STAT 01/10/2025 11:47 AM EDT LIPID PANEL WITH RFLX DIRECT LDL STAT 06/22/2024 8:05 PM EDT from Last 3 Months or Most Recently Relevant to Health Maintenance Results * ECG 12 lead (02/16/2025 2:30 AM EST) Diagnosis Class Borderline Abnormal GE MUSE Ventricular Rate 61 BPM GE MUSE Atrial Rate 61 BPM GE MUSE CA Interval 174 ms GE MUSE QRS DURATION 110 ms GE MUSE QT Interval 444 ms GE MUSE QTC CALCULATION (BAZETT) 446 ms GE MUSE P [place] 83 degrees GE MUSE R [place] 77 degrees GE MUSE T Wave [place] 67 degrees GE MUSE 02/16/2025 2:29 AM [...] 19 Negative Negative, Invalid 02/16/2025 2:44 AM [facility] Comment:The [employer] ([email or web address]) [facility] Hospital[facility]. ID NOW COVID-19 was designated to detect the causative agent of COVID-19. [employer] was granted Emergency Use Authorization (EUA) from the FDA to distribute this test kit. Negative results do not preclude SARS-CoV-2 infection and should not be used as the sole basis for patient management decisions. Swab Both anterior nares / Unknown 02/16/2025 2:24 AM EST 02/16/2025 2:44 AM EST [facility] LABORATORY - 02/16/2025 2:44 AM EST Performed at:[address] [place] [address] Almita Sierra DO LAB POINT OF CARE T EST DOCKED DEVICE UNSOLICITED RESULTS Final Result Performing Organization Address [facility]/ZIP Co de Phone Number [facility] [address] [place] [address], [place] * (ABNORMAL) Drug Screen Panel, Urine (02/16/2025 2:11 AM EST) Only the most recent of2 resultswithin the time period is included. Amphetamines, Urine Negative Negative 02/16/2025 3:04 AM [facility] Comment: I-Negative THRESHOLD 500 NG/ML Barbiturates, Urine Negative Negative 02/16/2025 3:04 AM [facility] Comment: I-Negative THRESHOLD 200 NG/ML Cocaine Metabolite, Urine Positive(A) Negative 02/16/2025 3:04 AM [facility] Comment: I-Positive THRESHOLD 150 NG/ML PRESUMPTIVE POSITIVE BY SCREENING METHOD. THIS RESULT HAS NOT BEEN CONFIRMED BY A CONFIRMATORY TECHNIQUE. Opiates, Urine Negative Negative 02/16/2025 3:04 AM [facility] Comment: I-Negative THRESHOLD 200 NG/ML Benzodiazepines, Urine Negative Negative 02/16/2025 3:04 AM [facility] Comment: I-Negative THRESHOLD 200 NG/ML Methadone, Urine Negative Negative 02/17/20 3:04 AM [facility] Comment: I-Negative THRESHOLD 300 NG/ML Phencyclidine (PCP), Urine Negative Negative 02/16/2025 3:04 AM [facility] Comment: I-Negative THRESHOLD 25 NG/ML Cannabinoids, Urine Negative Negative 02/16/2025 3:04 AM [facility] Comment: I-Negative THRESHOLD 50 NG/ML Urine Urine specimen obtained by clean catch procedure / Unknown Non-blood Collection / Unknown 02/16/2025 2:11 AM EST 02/16/2025 2:25 AM EST us Trevor ZIMMERMAN LAB URINE ORDERABLES Final Result Performing Organization Address City/State/[facility] Co de Phone Number [facility] [address] [place] [id number], [place] * Urinalysis With Reflex To Urine Culture (02/16/2025 2:11 AM EST) Only the most recent of2 resultswithin the time period is included. Color Yellow Yellow, Dark Yellow 02/16/2025 2:33 AM [facility] Clarity Clear Clear 02/16/2025 2:33 AM [facility] Leukocytes Negative Negative 02/16/2025 2:33 AM [facility] Nitrite Negative Negative 02/16/2025 2:33 AM [facility] Blood Negative Negative, NEG 02/16/2025 2:33 AM [facility] Glucose Negative Negative 02/16/2025 2:33 AM [facility] Ketones Negative Negative 02/16/2025 2:33 AM [facility] pH 6.0 5.0 - 8.0 pH 02/16/2025 2:33 AM [facility] Specific [place], UA 1.023 1.002 - 1.029 02/16/2025 2:33 AM [facility] Bilirubin Negative Negative, NEG 02/16/2025 2:33 AM [facility] Urobilinogen 0.2 0.2, 1.0 mg/dL 02/16/2025 2:33 AM [facility] Protein Negative Negative 02/16/2025 2:33 AM [facility] Urine Urine specimen obtained by clean catch procedure / Unknown Non-blood Collection / Unknown 02/16/2025 2:11 AM EST 02/16/2025 2:25 AM EST us Trevor ZIMMERMAN LAB URINE ORDERABLES Final Result Performing Organization Address City/State/[facility] Co de Phone Number [facility] [address] [place] [id number], [place] * (ABNORMAL) Automated Differential (02/16/2025 2:08 AM EST) Only the most recent of2 resultswithin the time period is included. Neutrophils % 51.5 41.0 - 67.0 % 02/16/2025 3:08 AM [facility] Lymphocytes % 33.4 28.0 - 42.0 % 02/16/2025 3:08 AM [facility] Monocytes % 10.2(H) 4.0 - 9.0 % 02/16/2025 3:08 AM [facility] Eosinophils % 3.8 0.0 - 5.0 % 02/16/2025 3:08 AM [facility] Basophils % 0.8 0.0 - 1.0 % 02/16/2025 3:08 AM [facility] Immature Granulocytes % 0.3 0.0 - 1.0 % 02/16/2025 3:08 AM [facility] Absolute Neutrophils 5.12 1.60 - 6.20 10*3/uL 02/16/2025 3:08 AM [facility] Absolute Lymphocytes 3.33 1.10 - 3.90 10*3/uL 02/16/2025 3:08 AM [facility] Absolute Monocytes 1.02(H) 0.20 - 0.80 10*3/uL 02/16/2025 3:08 AM [facility] Absolute Eosinophils 0.38 0.00 - 0.50 10*3/uL 02/16/2025 3:08 AM [facility] Absolute Basophils 0.08 0.00 - 0.10 10*3/uL 02/16/2025 3:08 AM [facility] Absolute Immature Granulocytes 0.03 0.00 - 0.10 10*3/uL 02/16/2025 3:08 AM [facility] Blood Venous blood / Unknown Venipuncture / Unknown 02/16/2025 2:08 AM EST 02/16/2025 2:27 AM EST us Trevor ZIMMERMAN LAB BLOOD ORDERABLES Final Result [facility] [address] [place] [address], [place] * (ABNORMAL) Complete Blood Count (02/16/2025 2:08 AM EST) Only the most recent of2 resultswithin the time period is included. WBC 10.0(H) 4.0 - 9.3 10*3/uL 02/16/2025 3:08 AM [facility] Hemoglobin 13.9 11.0 - 16.7 g/dL 02/16/2025 3:08 AM [facility] Hematocrit 40.6 33.0 - 49.0 % 02/16/2025 3:08 AM [facility] RBC 4.56 4.00 - 5.70 10*6/uL 02/16/2025 3:08 AM [facility] MCV 89.0 82.3 - 93.2 fL 02/16/2025 3:08 AM [facility] MCH 30.5 27.5 - 32.2 pg 02/16/2025 3:08 AM [facility] MCHC 34.2 32.5 - 35.5 g/dL 02/16/2025 3:08 AM [facility] RDW 12.3 12.0 - 15.0 % 02/16/2025 3:08 AM [facility] Platelet Count 298 130 - 350 10*3/uL 02/16/2025 3:08 AM [facility] MPV 10.0 7.5 - 10.7 fL 02/16/2025 3:08 AM [facility] NRBC % 0.0 <=0.0 % 02/16/2025 3:08 AM [facility] Absolute NRBC 0.00 <=0.00 10*3/uL 02/16/2025 3:08 AM [facility] Blood Venous blood / Unknown Venipuncture / Unknown 02/16/2025 2:08 AM EST 02/16/2025 2:27 AM EST us [employer] LAB BLOOD ORDERABLES Final Result Performing Organization Address City/[facility]/ZIP Co de Phone Number [facility] [address] [place] [address], * Ethanol (02/16/2025 2:08 AM EST) Only the most recent of2 resultswithin the time period is included. Ethanol <10 <=10 mg/dL 02/16/2025 3:35 AM [facility] Comment: I-Result < dynamic range M-Verified value by repeat analysis > = 50 mg/dl (legally impaired) >= 80 mg/dl (legally intoxicated) Blood Venous blood / Unknown Venipuncture / Unknown 02/16/2025 2:08 AM EST 02/16/2025 2:26 AM EST us Trevor L Elizabeth PA LAB BLOOD ORDERABLES Final Result [facility] [address] [place] [address], [place] * (ABNORMAL) Acetaminophen Level (02/16/2025 2:08 AM EST) Only the most recent of2 resultswithin the time period is included. Acetaminophen 0.3(L) Therapeutic Range: 10-30 ug/mL ug/mL 02/16/2025 3:35 AM EST [facility] Comment: Toxic: Greater than 150 ug/mL at 4 hours after ingestion or half-life greater than 4 hours. Blood Venous blood / Unknown Venipuncture / Unknown 02/16/2025 2:08 AM EST 02/16/2025 2:26 AM EST Trevor ZIMMERMAN LAB BLOOD ORDERABLES Final Result Performing Organization Address City/[facility]/ZIP Co de Phone Number [facility] [address] [place] [address], [place] * Salicylate (02/16/2025 2:08 AM EST) Only the most recent of2 resultswithin the time period is included. Salicylate <1.5 Therapeutic Range: 2-30 mg/dL mg/dL 02/16/2025 3:35 AM EST [facility] Comment: I-Result < dynamic range M-Verified value by repeat analysis Therapeutic: Analgesia: Up to 20 mg/dl Antipyresis: Up to 20 mg/dl Anti-inflammatory: Up to 30 mg/dl Toxic: >30.0 mg/dl Blood Venous blood / Unknown Venipuncture / Unknown 02/16/2025 2:08 AM EST 02/16/2025 2:26 AM EST Trevor Johnson PA LAB BLOOD ORDERABLES Final Result [facility] [address] [place] [address], * (ABNORMAL) Comprehensive Metabolic Panel (02/16/2025 2:08 AM EST) Only the most recent of2 resultswithin the time period is included. Sodium 144 135 - 145 mmol/L 02/16/2025 3:13 AM [facility] Potassium 3.4 3.4 - 5.2 mmol/L 02/16/2025 3:13 AM [facility] Chloride 106 99 - 109 mmol/L 02/16/2025 3:13 AM [facility] Carbon Dioxide 31(H) 21 - 30 mmol/L 02/16/2025 3:13 AM [facility] Comment: High LDH can falsely elevate CO2 results. If elevated LDH levels are clinically suspected, interpret CO2 with caution. Blood Urea Nitrogen (BUN) 23(H) 7 - 22 mg/dL 02/16/2025 3:13 AM [facility] Creatinine 0.85 0.60 - 1.30 mg/dL 02/16/2025 3:13 AM [facility] Glucose 142(H) 65 - 99 mg/dL 02/16/2025 3:13 AM [facility] Calcium 9.0 8.6 - 10.3 mg/dL 02/16/2025 3:13 AM [facility] Anion Gap 7 5 - 15 mmol/L 02/16/2025 3:13 AM [facility] eGFR 85 >=60 mL/min/1. 73m*2 02/16/2025 3:13 AM [facility] Comment: Calculation based on the Chronic Kidney Disease Epidemiology Collaboration (CKD- EPI) equation refit without adjustment for race. *This eGRF calculation is based on the 5766-LHX-VOA creatinine equations for adults designed to estimate glomerular filtration rate (eGFR) without race adjustment factors. *This eGFR results are indexed to standard body surface area (BSA) 1.73 M(2). *eGFR results should only be used for adult patients >=18 years old. *Use of nonindexed eGFR values (mL/min) should be considered for drug dosing decisions. Total Protein 6.4 6.0 - 8.0 g/dL 02/16/2025 3:13 AM [facility] Albumin 3.9 3.5 - 5.2 g/dL 02/16/2025 3:13 AM [facility] Globulin, Total 2.5 g/dL 3:13 AM [facility] A/G Ratio 1.6 02/16/2025 3:13 AM [facility] Bilirubin, Total 0.5 0.1 - 1.2 mg/dL 02/16/2025 3:13 AM [facility] Alanine Aminotransferase (ALT) 15 7 - 52 U/L 02/16/2025 3:13 AM [facility] Aspartate Aminotransferase (AST) 20 5 - 45 U/L 02/16/2025 3:13 AM [facility] Alkaline Phosphatase 78 34 - 104 U/L 02/16/2025 3:13 AM [facility] Blood Venous blood / Unknown Venipuncture / Unknown 02/16/2025 2:08 AM EST 02/16/2025 2:26 AM EST us Trevor ZIMMERMAN LAB BLOOD ORDERABLES Final Result Performing Organization Address City/State/[facility] Co de Phone Number [facility] [address] [place] [address], * (ABNORMAL) Urine Culture - [facility] (01/10/2025 7:23 PM EDT) Urine Culture 10,000 CFU/mL Streptococcus mitis group(A) 01/12/2025 8:03 PM EDT [facility] Comment:Along with Urine Culture <10,000 colonies/ml. Insignificant colony count. No further workup. 01/12/2025 8:03 PM EDT [facility] Urine Urine specimen obtained by clean catch procedure / Unknown Non-blood Collection / Unknown 01/10/2025 7:23 PM EDT 01/10/2025 7:28 PM EDT Narrative [facility] - 01/12/2025 8:03 PM EDT The performance characteristics of the Microbial Identification methods used were determined by the Microbiology Laboratory at the [facility]. They have not been cleared or approved by the U.S. Food and Drug Administration. Mansi Wills MD LAB MICROBIOLOGY - GENERAL ORD ERABLES Final Result [facility] [address] [place] [address], * Lipid Panel with RFLX Direct LDL - [facility] (06/22/2024 8:05 PM EDT) Cholesterol 143 mg/dL 06/22/2024 8:26 PM EDT [facility] Comment: DESIRABLE <200 mg/dL [place] 200-239 mg/dL HIGH RISK >240 mg/dL Triglycerides 72 mg/dL 06/22/2024 8:26 PM EDT [facility] Comment: DESIRABLE <150 mg/dL [place] 150-199 mg/dL HIGH RISK >200 mg/dL HDL Cholesterol 50.0 mg/dL 8:26 PM EDT [facility] Comment: DESIRABLE >65 mg/dL [place]ORDER[place] 45-65 mg/dL HIGH RISK <45 mg/dL LDL Calculated 79 <=100 mg/dL 06/22/2024 8:26 PM EDT [facility] VLDL CHOLESTEROL 14.4 5 - 40 mg/dL 06/22/2024 8:26 PM EDT [facility] CHOL/HDL RATIO 2.9 0.0 - 5.0 06/22/2024 8:26 PM EDT [facility] Blood Venous blood / Unknown Venipuncture / Unknown 06/22/2024 8:05 PM EDT 06/22/2024 8:08 PM EDT us Felice Bonilla MD LAB BLOOD ORDERABLES Final Re sult [facility] [address] [place] [address] from Last 3 Months or Most Recently Relevant to Health Maintenance Insurance [employer] Member Subscriber Plan / Payer (Ef fective 2024-Present) Name:Ashley Anton Member ID:Not on file Relation to Subscriber:Self Name:Ashley Anton Subscriber ID:Not on file Payer ID:[id number] Group ID:Not on file Type:Not on file Address: [address] [place] [address] Advance Directives For more information, please contact: [phone] (Available ) * Resuscitation Status (Latest Code Status on File) Date Activated Date Inactivated Comments 06/16/2024 3:06 PM 06/17/2024 1:03 PM Question Answer Comments If no pulse and/or not breathing: Attempt CPR If pulse and breathing present: Intubati 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
--- OUTSIDE RECORDS SUMMARY | 2025-03-30 04:49 | XMS_ITS | Clinical Summary ---
Author Organization [facility] Address [address] [place] [address] Phone Care Team Providers Care Bladder Trimmer Name Role Phone Pcp, Unknown Primary Care Provider Grace Carpenter MD Unavailable [phone] Allergies Active Allergy Reactions Criticality Noted Date Comments Nicotine Rash Low 01/30/2022 Tomato 03/14/2025 Medications * This document contains information received from the source organization and may not represent a complete record from that organization. ARIPiprazole (ABILIFY) 15 MG tablet Take 1 tablet (15 mg total) by mouth daily. 14 tablet 03/17/20 25 Active DEPO-ESTRADIOL 5 mg/mL injection INJECT 5MG (1ML) INTRAMUSCULARLY ONCE A WEEK 03/11/20 22 025 Discontin ued(Stop Taking at Discharge ) lithium (LITHOBID) 450 MG ER tablet Take 2 tablets (900 mg total) by mouth every 12 (twelve) hours. 60 tablet 08/02/19 24 025 Discontin ued(Stop Taking at Discharge ) spironolactone (ALDACTONE) 100 MG tablet Take 1 tablet (100 mg total) by mouth daily. 15 tablet 08/02/19 24 025 Discontin ued(Stop Taking at Discharge ) Active Problems Problem Noted Date Diagnosed Date Depression 03/20/2025 Depression, unspecified depression type 03/20/20 25 Suicidal ideation 03/13/2025 Cocaine use disorder 03/13/2025 Trauma and stressor-related disorder 08/02/2023 Verbalizes suicidal thoughts 05/29/2022 Major depression, recurrent 10/11/2021 Bipolar affective disorder, depressed, severe Bipolar I disorder with depression, severe 01/03 Unspecified mood (affective) disorder 04/06/2018 Resolved Problems Problem Noted Date Diagnosed Date Resolved Date Suicidal ideation 09/21/2022 08/02/2023 Encounters * This document contains information received from the source organization and may not represent a complete record from that organization. Date Type Department Care Team Description 03/20/2025 7:32 AM EST - 03/20/2025 7:06 PM EST Hospital Encounter [facility] [address] [place] [address] Goldy Cardoza MD Devries, Stephen G, MD Discharge Disposition: Home or Self Care 03/20/2025 [facility] GENERATED External System Generated Encounter [address] [place] [address] Unknown, Unknown, 03/16/[address] [facility] [address] [place] [address] 12/29/2024 [facility] RISK SCORES SYSTEM GENERATED External System Generated Encounter [address] [place] [address] Unknown, Unknown, from Last 3 Months Immunizations Immunization Administration Dates Next Due Influenza Quadrivalent Prese rvative Free IM 01/04/2019(Deferred: Patient Refused) Social History Tobacco Use Types Packs/Day Years Used Date Smoking Tobacco: Every Day Cigarettes 0.5 10 Smokeless Tobacco: Never Tobacco Cessation:Ready to Q uit: Not Asked; Counseling Given: Yes Comments:Pt declined Nicotine replacement therapy. Alcohol Use Standard Drinks/Week Comments Not Currently 0 (1 standard drink = 0.6 oz pur e alcohol) 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 Not on asher e 07/28/2022 Are you concerned about learning? Not on file 07/28/2022 No 07/28/2022 No 07/28/2022 Food Answer Date Recorded Within the past 6 months we worried whether our food would run out before we got money to buy more. Sometimes True 025 Within the past 6 months the food we bought just didn't last and we didn't have enough money to get more. Sometimes True 03/02 Residential Stability Answer Date Recor ded What is your housing situation today? I have jimmie little 03/13/2025 How many times have you move d in the past 12 months? Zero (I did not move) 03/13/2025 Paying for Meds Answer Date Recorded Do you have trouble paying for medicines? No 03/13/2025 Paying Utility Bills Answer Date Record ed Do you have trouble paying your heating or elect ricity bill? No 03/13/2025 Transportation Answer Date Recorded Has the lack of transportati on kept you from medical appointments or from getting medications? No 03/13/2025 Digital Access Answer Date Recorded No 03/13/2025 Yes 03/13/2025 Do you have reliable internet access at home? Ye s 03/13/2025 Do you have a device (e.g., phone, tablet, computer) with a working camera? Yes 03/13/2025 Intimate Partner Violence Answer Date R ecorded Are you denied basic needs s uch as food, clothing, or medical care? No 03/20/2025 In the past 12 months have y ou been in a relationship with a person who hurts, threatens, or tries to control you? No 03/20/2025 Are you denied basic needs s uch as food, clothing, or medical care? No 03/20/2025 In the past 12 months have y ou been in a relationship with a person who hurts, threatens, or tries to control you? No 03/20/2025 Comments No Sex and Gender Information Value Date Recorded Sex Assigned at Male 08/09/2017 12:42 PM EDT Legal Sex Female 7:19 AM EDT Gender Identity Transgender Female 01/03/2019 9: 47 AM EDT Sexual Orientation Straight 03/01/2019 3: 32 AM EST Last Filed Vital Signs Vital Sign Reading Time Taken Comments Blood Pressure 112/59 03/20/2025 6:00 PM EST Pulse 84 03/20/2025 6:00 PM EST Temperature 37 C (98.6 F) 03/20/2025 6:00 PM EST Respiratory Rate 18 03/20/2025 6:00 PM EST Oxygen Saturation 99% 03/20/2025 6:00 PM EST Inhaled Oxygen Concentration - - Weight 75.9 kg (167 lb 4.8 oz) 03/13/2025 5:50 P M EST Height 180.3 cm (5' 11 ) 03/13/2025 5:50 PM EST Body Mass Index 23.33 03/13/2025 5:50 PM EST Plan of Treatment Health Maintenance Due Date Last Done Comments Adult Td,Tdap Booster 1976 DEPRESSION SCREENING 1988 HEPATITIS C SCREENING 1994 HIV ONE-TIME SCREENING (18-6 5 YEARS) 1994 HEPATITIS A VACCINES (1 of 2 - Risk 2-dose series) 1995 PNEUMOCOCCAL VACCINES (0-49 years) (1 of 2 - PCV) 1995 PAP SMEAR 1997 MAMMOGRAM 2016 COLOGUARD 2021 COLONOSCOPY 2021 COLORECTAL CANCER SCREENING 2021 FIT TEST 2021 FOBT 2021 SIGMOIDOSCOPY 2021 VIRTUAL COLONOSCOPY 2021 INFLUENZA VACCINE (#1) 2024 COVID-19 VACCINE ( - 2024-2 6 season) 2024 SMOKING Hx and SMOKELESS TOBACCO SCREENING 03/13/2026 03/13/2025 LIPID PANEL 06/22/2029 06/22/2024, 08/02/2023 HIB VACCINES Aged Out No longer eligi ble based on patient's age to complete this topic MENINGOCOCCAL VACCINES (ACWY) Aged Out No longer eligible based on patient's age to complete this topic MENINGOCOCCAL VACCINES (B) Aged Out N o longer eligible based on patient's age to complete this topic Medical Devices Not on file Procedures Procedure Name Priority Date/Time Associated Diagnosis Comments SARS-COV-2, INFLUENZA A/B, PCR JOSE STAT 03/20/2025 1:51 PM EST COVID PANDEMIC RESPIRATORY VIRAL ORDER (PRO) STAT 03/20/2025 1:51 PM EST CBC AND DIFFERENTIAL STAT 03/20/2025 7:51 AM EST HCG, SERUM QUALITATIVE STAT 03/20/2025 7:51 AM EST ETHANOL, BLOOD STAT 03/20/2025 7:51 AM EST LFTS (HEPATIC PANEL) STAT 03/20/2025 7:51 AM EST BASIC METABOLIC PANEL (BMP) STAT 03/20/2025 7:51 AM EST CBC AND DIFFERENTIAL STAT 03/20/2025 7:51 AM EST URINALYSIS WITH REFLEX TO URINE CULTURE STAT 03/20/2025 7:34 AM EST TOXICOLOGY SCREEN, URINE STAT 03/20/2025 7:34 AM EST CBC AND DIFFERENTIAL STAT 03/13/2025 2:34 AM EST HCG, SERUM QUALITATIVE STAT 03/13/2025 2:34 AM EST ETHANOL, BLOOD STAT 03/13/2025 2:34 AM EST LFTS (HEPATIC PANEL) STAT 03/13/2025 2:34 AM EST BASIC METABOLIC PANEL (BMP) STAT 03/13/2025 2:34 AM EST CBC AND DIFFERENTIAL STAT 03/13/2025 2:34 AM EST LIPID PANEL Routine 08/02/2023 10:12 AM EDT from Last 3 Months or Most Recently Relevant to Health Maintenance Results * SARS-CoV-2, INFLUENZA A/B, PCR (03/20/2025 1:51 PM EST) SARS-CoV-2 RNA PCR Not Detected Not Detected 03/20/2025 2:20 PM EST [facility] Influenza A PCR Not Detected Not Detected 03/20/2025 2:20 PM [facility] Influenza B PCR Not Detected Not Detected 03/20/2025 2:20 PM [facility] Swab (Nasopharynx, Bilateral) Non-Blood Collection / Unknown 03/20/2025 1:51 PM EST 03/20/2025 1:54 PM EST Tommy Lloyd PA-C LAB GENERAL ORDERABLES Final Result Performing Organization Address [facility] Co de Phone Number [address] [address] * Symptomatic Respiratory Virus Testing Panel (ED/IP) (03/20/2025 1:51 PM EST) Pathologist [facility] SARS Comment 03/20/2025 2:01 PM EST [facility] Comment:This test automatica lly orders a COVID-19 PCR and may add Flu, RSV, or other viral tests based on patient clinical factors and site protocols. Results will appear below and separately in chart review when available. Swab (Nasopharynx, Bilateral) Non-Blood Collection / Unknown 03/20/2025 1:51 PM EST 03/20/2025 1:54 PM EST Tommy Lloyd PA-C LAB GENERAL ORDERABLES Final Result Performing Organization Address [facility] de Phone Number [address] [address] * Ethanol, Blood (03/20/2025 7:51 AM EST) Only the most recent of2 resultswithin the time period is included. [facility] Ethanol <10 Negative; <11 mg/dL 03/20/2025 8:25 AM EST [facility] Blood (Blood) Venipuncture / Unknown 03/20/2025 7:51 AM EST 03/20/2025 7:56 AM EST Goldy Cardoza MD LAB BLOOD BKR ORD ERABLES Final Result Performing Organization Address [facility] Co de Phone Number [address] [address] * Human Chorionic Gonadotropin (HCG), Qualitative, Blood (03/20/2025 7:51 AM EST) Only the most recent of2 resultswithin the time period is included. hCG Qualitative Negative Negative 8:47 AM [facility] Blood (Blood) Venipuncture / Unknown 03/20/2025 7:51 AM EST 03/20/2025 7:55 AM EST us Goldy Cardoza MD LAB BLOOD BKR ORD ERABLES Final Result [facility] [address] [place] [address] * (ABNORMAL) CBC and Differential (03/20/2025 7:51 AM EST) Only the most recent of2 resultswithin the time period is included. WBC 11.35(H) 4.00 - 11.00 K/uL 03/20/2025 7:57 AM [facility] RBC 4.56 4.00 - 5.20 M/uL 03/20/2025 7:57 AM [facility] Hemoglobin 14.1 12.0 - 16.0 g/dL 03/20/2025 7:57 AM [facility] Hematocrit 41.9 36.0 - 46.0 % 03/20/2025 7:57 AM [facility] MCV 91.9 80.0 - 100.0 fL 03/20/2025 7:57 AM [facility] MCH 30.9 27.0 - 31.0 pg 03/20/2025 7:57 AM [facility] MCHC 33.7 32.0 - 36.0 g/dL 03/20/2025 7:57 AM [facility] MPV 10.0 8.4 - 12.0 fL 03/20/2025 7:57 AM [facility] RDW-CV 12.4 11.5 - 14.5 % 03/20/2025 7:57 AM [facility] PLT 236 150 - 450 K/uL 03/20/2025 7:57 AM [facility] Neutrophils 68.5 % 03/20/2025 7:57 AM [facility] Lymphocytes 17.3 % 03/20/2025 7:57 AM [facility] Monocytes 11.5 % 03/20/2025 7:57 AM [facility] Eosinophils 1.9 % 03/20/2025 7:57 AM [facility] Basophils 0.4 % 03/20/2025 7:57 AM [facility] Imm Grans 0.4 % 03/20/2025 7:57 AM [facility] NRBC 0.0 <=0.0 /100 WBCs 03/20/2025 7:57 AM [facility] Absolute Neutrophils 7.79(H) 1.92 - 7.60 K/uL 03/20/2025 7:57 AM [facility] Absolute Lymphocytes 1.96 0.72 - 4.10 K/uL 03/20/2025 7:57 AM [facility] Absolute Monocytes 1.30(H) 0.16 - 1.10 K/uL 03/20/2025 7:57 AM [facility] Absolute Eosinophils 0.21 0.00 - 0.50 K/uL 03/20/2025 7:57 AM [facility] Absolute Basophils 0.05 0.00 - 0.15 K/uL 03/20/2025 7:57 AM [facility] Absolute Imm Grans 0.04 0.00 - 0.09 K/uL 03/20/2025 7:57 AM [facility] Absolute NRBC 0.00 <=0.00 K cells/uL 03/20/2025 7:57 AM [facility] Absolute Neutrophils 7.79(H) 1.92 - 7.60 K/uL 03/20/2025 7:57 AM [facility] Comment:Automated cell count . Manual ANC may differ if performed. Diff Type Auto 03/20/2025 7:57 AM [facility] Blood (Blood) Venipuncture / Unknown 03/20/2025 7:51 AM EST 03/20/2025 7:55 AM EST us Goldy Cardoza MD LAB BLOOD BKR ORD ERABLES Final Result [address] [address] * Hepatic Panel (LFTs) (03/20/2025 7:51 AM EST) Only the most recent of2 resultswithin the time period is included. AST 18 <33 U/L 03/20/2025 8:25 AM [facility] ALT 17 <34 U/L 03/20/2025 8:25 AM [facility] Alkaline Phosphatase 82 40 - 130 U/L 03/20/2025 8:25 AM [facility] Bilirubin, Total 0.5 0.0 - 1.2 mg/dL 03/20/2025 8:25 AM [facility] Bilirubin, Direct 0.1 0.0 - 0.3 mg/dL 03/20/2025 8:25 AM [facility] Total Protein 7.1 6.4 - 8.3 g/dL 03/20/2025 8:25 AM [facility] Albumin 4.2 3.5 - 5.2 g/dL 03/20/2025 8:25 AM [facility] Globulin 2.9 1.9 - 4.1 g/dL 03/20/2025 8:25 AM [facility] Blood (Blood) Venipuncture / Unknown 03/20/2025 7:51 AM EST 03/20/2025 7:56 AM EST us Goldy Cardoza MD LAB BLOOD BKR ORD ERABLES Final Result [address] [address] * Basic Metabolic Panel (BMP) (03/20/2025 7:51 AM EST) Only the most recent of2 resultswithin the time period is included. Sodium 138 136 - 145 mmol/L 03/20/2025 8:25 AM [facility] Potassium 3.8 3.4 - 5.1 mmol/L 03/20/2025 8:25 AM [facility] Chloride 103 98 - 107 mmol/L 03/20/2025 8:25 AM [facility] CO2 27 20 - 31 mmol/L 03/20/2025 8:25 AM [facility] BUN 22 6 - 23 mg/dL 03/20/2025 8:25 AM [facility] Creatinine 0.60 0.50 - 1.00 mg/dL 03/20/2025 8:25 AM [facility] Glucose 91 70 - 99 mg/dL 03/20/2025 8:25 AM [facility] Calcium 9.0 8.5 - 10.5 mg/dL 03/20/2025 8:25 AM [facility] eGFR 111 >59 mL/min/1.7 3m2 03/20/2025 8:25 AM [facility] Comment:Estimated glomerular filtration rate calculated using the CKD-EPI refit equation. Anion Gap 8 3 - 17 mmol/L 03/20/2025 8:25 AM [facility] Blood (Blood) Venipuncture / Unknown 03/20/2025 7:51 AM EST 03/20/2025 7:56 AM EST us Goldy Cardoza MD LAB BLOOD BKR ORD ERABLES Final Result [address] [address] * Urinalysis with Reflex to Urine Culture (03/20/2025 7:34 AM EST) Color Yellow Yellow 03/20/2025 9:43 PM [facility] Clarity Clear Clear 03/20/2025 9:43 PM [facility] Glucose Negative Negative 03/20/2025 9:43 PM [facility] Bilirubin Urine Negative Negative 9:43 PM [facility] Ketone Urine Negative Negative 03/20/2025 9:43 PM [facility] Specific [place] 1.015 1.001 - 1.035 03/20/2025 9:43 PM [facility] Blood Negative Negative 03/20/2025 9:43 PM [facility] pH 7.5 5.0 - 8.0 03/20/2025 9:43 PM [facility] Protein Negative Negative 03/20/2025 9:43 PM EST [facility] Nitrites Negative Negative 03/20/2025 9:43 PM [facility] Leukocyte Esterase Negative Negative 03/20/2025 9:43 PM [facility] Urobilinogen Negative Negative 03/20/2025 9:43 PM [facility] Urine (Urine, Voided) Non-Blood Collection / Unknown 03/20/2025 7:34 AM EST 03/20/2025 9:42 PM EST [facility] - 03/20/2025 9:43 PM EST The time from collection to resulting exceeded 8 hours. If the specimen was collected in a container without preservative, some parameters may be affected. us Goldy Cardoza MD LAB URINE ORDERAB LES Final Result Performing Organization Address City/State/[facility] Co de Phone Number [address] [address] * (ABNORMAL) Toxicology Screen, Urine (03/20/2025 7:34 AM EST) Amphetamines, Urine Negative Negative 03/20/2025 8:36 AM [facility] Benzodiazepin e, Urine Negative Negative 03/20/2025 8:36 AM [facility] Cocaine Metabolite, Urine Positive(A) Negative 03/20/2025 8:36 AM [facility] Opiates, Urine Negative Negative 03/20/2025 8:36 AM [facility] Oxycodone, Urine Negative Negative 03/20/2025 8:36 AM [facility] Fentanyl, Urine Negative Negative 03/20/2025 8:36 AM [facility] Creatinine, Urine 70 20 - 300 mg/dL 03/20/2025 8:36 AM [facility] Urine (Urine, Voided) Non-Blood Collection / Unknown 03/20/2025 7:34 AM EST 03/20/2025 7:37 AM EST [facility] - 03/20/2025 8:36 AM EST This screening test was performed by immunoassay methodology, which may occasionally yield false-negative or false-positive results. Confirmatory testing can be requested if a definitive result is needed. Results are to be used only for medical (ie, treatment) purposes. Unconfirmed screening results must not be used for non-medical purposes (eg, employment testing). Goldy Cardoza MD LAB URINE ORDERAB LES Final Result Performing Organization Address [facility] Co de Phone Number [address] [address] * (ABNORMAL) Lipid panel (08/02/2023 10:12 AM EDT) HDL 57 mg/dL [facility] Comment: Interpretation <40 mg/dL: Low HDL cholesterol (major risk factor for CHD) Greater than or equal to 60 mg/dL: High HDL cholesterol ( negative risk factor for CHD) HDL - cholesterol is affected by a number of factors, e.g. smoking, excerise, hormones, sex and age. CHOLESTEROL 176 0 - 240 mg/dL [facility] TRIGLYCERIDES 88 30 - 160 mg/dL [facility] LDL 101 50 - 129 mg/dL [facility] Comment: LDL levels in terms of risk for coronary heart disease: <100 mg/dL: Optimal 100-129 mg/dL: Near or above optimal 130-159 mg/dL: Borderline high 160-189 mg/dL: High >190 mg/dL: Very High CARDIAC RISK RATIO 3.1(L) 3.3 - 4.4 C [facility] Blood 08/02/2023 10:1 2 AM EDT 08/02/2023 10:27 AM EDT Goldy Ventura MD LAB BLOOD BKR ORDERABLES F inal Result Performing Organization Address [facility] Co de Phone Number [address] [address] from Last 3 Months or Most Recently Relevant to Health Maintenance Additional Health Concerns Infection Onset Date Last Indicated Resp-Risk 03/20/2025 03/20/2025 Insurance [employer] [address] [place], [place] [address]P [place] [address] [place], [place] [address] [address] [place] [address] [address] [place] [address] [place] [address]P [facility] [place] [address] [place] [address] ACO Advance Directives For more information, please contact: [phone] (9AM - 5PM [facility], Sunday-Sunday) * Full Code (Latest Code Status on File) Date Activated Date Inactivated Comments 03/13/2025 5:54 PM Question Answer Comments Code Status Confirmed With: Patient * Full Code Date Activated Date Inactivated Comments 07/30/2023 1:47 PM 03/13/2025 5:54 PM Question Answer Comments Code Status Confirmed With: Patient * Full Code Date Activated Date Inactivated Comments 10/13/2020 5:45 PM 07/30/2023 1:47 PM Question Answer Comments Code Status Confirmed With: Patient * Full Code (Presumed) Date Activated Date Inactivated Comments 01/03/2019 1:35 PM 01/04/2019 2:50 PM * Full Code (Presumed) Date Activated Date Inactivated Comments 04/06/2018 5:28 PM 04/10/2018 1:54 PM Care Teams Bladder Trimmer Relationship Specialty Start Date End Date Pcp, Unknown PCP - General 10/08/22 Grace Kahn MD [address] [place] [address], [place] [address] [email or web address] Insurance Assigned Provider 02/14/25 Additional Source Comments The information contained in this document represents components of the legal health record. It is not the complete legal health record.[facility]
--- OUTSIDE RECORDS SUMMARY | 2025-03-30 04:49 | XMS_ITS | Encounter Summary ---
Author Organization [facility] Address [address] [place] [address] Phone Care Team Providers Care Compensation Programs Manager Name Role Phone Provider, No Primary Care Provider Unavailabl e Encounter Details Date Type Department Care Team (Late st Contact Info) Description 01/14/2025 External Contact EXTERNAL LOCATION [address] [place] [phone] Vince, Rosa Provider Social History Tobacco [...] AM EDT Emergency Discharge Alert Powered by [id number] Patient Name: WAGNER MONTEJO : [id number] Patient Patient MR#: [id number] Source Facility: [facility] ADM-ClinicianName: UNKNOWN UNKNOWNCode: UNKNOWNAA: NPI ATT-ClinicianName: UNKNOWN UNKNOWNCode: UNKNOWNAA: AdmitDateTime: 2025-01-14 06:58:00 DischargeDateTime: 2025-01-14 10:49:00 Admit Reason Code: SI AllergenTypeIDDescSeverityCodeReactionCodeIDDate No Allergy Found [facility]CodeDe[facility] R45.851Suicidal ideations Electronically signed by Interface, Occupational Health And Safety Manager In [employer] at 01/14/2025 10:54 AM EDT documented in this encounter Plan of Treatment Not on file documented as of this encounter Visit Diagnoses Not on filedocumented in this encounter Additional Health Concerns Infection Onset Date Last Indicated Resolved Time Respiratory Rule-Out 02/16/2025 02/16/2025 025 2:44 AM EST documented as of this encounter Care Teams Compensation Programs Manager Relationship Specialty Start Date End Date Provider, No PCP - General 12/01/24 documented as of this encounter
--- OUTSIDE RECORDS SUMMARY | 2025-03-30 04:49 | XMS_ITS | Encounter Summary ---
Author Organization [facility] Address [address] [place] [address] Phone Care Team Providers Care Chief Revenue Officer Name Role Phone Provider, No Primary Care Provider Unavailabl e Encounter Details Date Type Department Care Team (Late st Contact Info) Description 01/13/2025 External Contact EXTERNAL LOCATION [address] [place] [phone] Vince, Rosa Provider Social History Tobacco [...] AM EDT Emergency Discharge Alert Powered by [id number] Patient Name: WAGNER MONTEJO : [id number] Patient Patient MR#: [id number] Source Facility: [facility] ADM-ClinicianName: UNKNOWN UNKNOWNCode: UNKNOWNAA: NPI ATT-ClinicianName: DANIELA MANNINGCode: [id number]: AdmitDateTime: 2025-01-13 00:35:00 DischargeDateTime: 2025-01-13 11:12:00 Admit [...] documented as of this encounter Care Teams Chief Revenue Officer Relationship Specialty Start Date End Date Provider, No PCP - General 12/01/24 documented as of this encounter
--- OUTSIDE RECORDS SUMMARY | 2025-03-30 04:49 | XMS_ITS | Encounter Summary ---
Author Organization [facility] Address [address] [place] [address] Phone Care Team Providers Care Cluster Bore Operator Name Role Phone Provider, No Primary Care Provider Haroon e Encounter Details Date Type Department Care Team (Late st Contact Info) Description 09/17/2024 External Contact EXTERNAL LOCATION [address] [place] [phone] Vince, Rosa Provider Social History Tobacco [...] AM EDT Emergency Discharge Alert Powered by [id number] Patient Name: WAGNER MONTEJO : [id number] Patient Patient MR#: [id number] Source [facility] ATT-ClinicianName: DAMARI REYNAGACode: [id number]: NPI AdmitDateTime: 2024-09-17 01:24:00 DischargeDateTime: 2024-09-17 10:00:00 Admit Reason Description: Detox AllergenTypeIDDescSeverityCodeReactionCodeIDDate 1903ALOE [id number] 00:00:00 1020VITAMIN E (D-ALPHA TOCOPHEROL)[id number] 00:00:00 4217QCSQBOgisBlhvcorvbgo2703-05-03 00:00:00 [id number] 00:00:00 DiagnosisCodeDesc Z76.5Malingerer (conscious simulation) Discharge Disposition: [...] documented as of this encounter Care Teams Cluster Bore Operator Relationship Specialty Start Date End Date Provider, No PCP - General 12/01/24 documented as of this encounter
--- OUTSIDE RECORDS SUMMARY | 2025-03-30 04:49 | XMS_ITS | Encounter Summary ---
Author Organization [facility] Address [address] [place] [address] Phone Care Team Providers Care Circular Saw Operator Name Role Phone Provider, No Primary Care Provider Unavailabl e Encounter Details Date Type Department Care Team (Late st Contact Info) Description 12/11/2024 External Contact EXTERNAL LOCATION [address] [place] [phone] Vince, Rosa Provider Social History Tobacco [...] AM EDT Emergency Discharge Alert Powered by [id number] Patient Name: WAGNER MONTEJO : [id number] Patient Patient MR#: [id number] Source Facility: [facility] ADM-ClinicianName: UNKNOWN UNKNOWNCode: UNKNOWNAA: NPI ATT-ClinicianName: DAMARI REYNAGACode: [id number]: AdmitDateTime: 2024-12-11 01:25:00 DischargeDateTime: 2024-12-11 12:26:00 Admit Reason Code: Back Pain AllergenTypeIDDescSeverityCodeReactionCodeIDDate No Allergy Found DiagnosisCodeDcommunity hospital of the [facility] R45.851Suicidal ideations F32.ADepression, unspecified Electronically signed by Interface, Window Unit Air Conditioning Mechanic [employer] at 12/11/2024 12:28 PM EDT documented in this encounter Plan of Treatment Not on file documented as of this encounter Visit Diagnoses Not on filedocumented in this encounter Additional Health Concerns Infection Onset Date Last Indicated Resolved Time Respiratory Rule-Out 01/10/2025 01/10/2025 025 7:46 PM EDT Respiratory Rule-Out 02/16/2025 02/16/2025 025 2:44 AM EST documented as of this encounter Care Teams Circular Saw Operator Relationship Specialty Start Date End Date Provider, No PCP - General 12/01/24 documented as of this encounter
--- OUTSIDE RECORDS SUMMARY | 2025-03-30 04:49 | XMS_ITS | Clinical Summary ---
Author Organization [facility] Prior to 08/30/24 Address [address] [place] [address] Care Team Providers Care Loan Coordinator Name Role Phone Unavailable Primary Care Provider [...] Advance Directives For more information, please contact: [phone] Documents on File Type Date Recorded Patient Home Economics Teacher Expl anation Advance Directive and Living Will [...]
--- NOTE | 2025-03-30 05:20 | ED_ITS ---
HPI - General Adult General Chief complaint: Psychiatric Symptoms Stated complaint: SI with a plan Time Seen by Provider: 03/30/25 04:49 Source: patient Limitations: no limitations History of Present Illness ED Provider: Vani Dykes PA-C HPI narrative: 49-year-old transgender male to female patient with a history of personality disorder , bipolar disorder, polysubstance abuse presenting with SI. Patient states that she has a plan to ?overdose, that she has been feeling this way since . She admits to using cocaine and fentanyl today. Related Data Previous Rx's ?Medication ?Instructions ?Recorded aripiprazole 5 mg tablet (Abilify) 5 mg PO DAILY #30 t abs 03/05/25 hydroxyzine HCl 25 mg tablet 25 mg PO Q6H PRN mild anx iety #30 03/05/25 tabs trazodone 50 mg tablet 50 mg PO BEDTIME MRX1 PRN In somnia 03/05/25 #30 tabs Allergies Allergy/AdvReac Type Severity Reaction Status Date / Time nicotine ([facility] Allergy Mild SHORTNESS Verified 03/30/25 03:55 OF BREATH ketchup (KETCHUP) Allergy Unknown RASH Verified 03/30/25 03:55 onion (ONION) Allergy Unknown RASH Verified 03/30/25 03:55 tomato (TOMATO) Allergy Unknown RASH Verified 03/30/25 03:55 Review of Systems 2 Review of Systems: Yes all other systems are reviewed and are negative Constitutional: Constitutional: Denies fatigue and Denies fever(s) Cardiovascular: Cardiovascular: Denies chest pain and Denies dyspnea Respiratory: Respiratory: Denies cough and Denies dyspnea Gastrointestinal: Gastrointestinal: Denies abdominal pain, Denies nausea and Denies vomiting Endocrine: Endocrine: Denies fatigue [facility] Past Medical History Attestation statement: The following information was validated with the patient. Medical History Cocaine abuse Transgender Personality disorder Bipolar 1 disorder Social History Social History Household Members: Unknown / Unable to assess Housing: Unknown / Unable to assess Alcohol intake: current Alcohol intake frequency: does not drink Alcohol type: hard liquor Patient Tobacco Use Status: Current everyday Tobacco user Substance Use Type: Crack/Cocaine Advance Directives: No Advance Directives Information Provided: Yes Do you have a plan to hurt others: No Plan service: No Sexual orientation: Lesbian/Pichardo/Homosexual Physical Exam ED Vital Signs: Vital Signs - 24 hr 03/30/25 03:54 Temperature 97.5 F Pulse Rate 77 Respiratory Rate 16 Blood Pressure 128/62 Pulse Oximetry 96 Oxygen Delivery Method Room Air BMI result Body Mass Index 23.4 Const Other: Alert Orientation/consciousness: patient oriented x3 Resp Effort & Inspection: normal respiratory effort Cardio Other: Normal peripheral perfusion Skin Other: Warm dry no rash Neuro General: patient oriented x3, gait normal, no focal motor deficits and CN's II- XI intact bilaterally Psych Other: Cooperative Course Reevaluation(s) Reevaluation #1: Time: 05:28 Date: 03/30/25 Provider: ELSIE Lott Patient in physician observation for psychiatric evaluation.? No acute events reported overnight. No current complaints. VS stable.? Patient is pending CARE team evaluation. Will continue to monitor. Time: 10:36 Date: 03/30/25 Provider: Batsheva Reynolds PA-C Physician observation ended at 1037 am. Patient has been cleared for discharge by the CARE team who does not recommend admission. She will follow up outpatient.. Time: 05:28 Medications Administered Discontinued Medications Generic Name Dose Route Start Last Admin Trade Name Richard PRN Reason Stop Dose Admin Naloxone HCl 8 mg 03/30/25 10:38 03/30/25 11:03 Naloxone Hcl Nasal Take Home 4 Mg Register NOSTRILALT 03/30/25 10:39 Not Given ONCE ONE Medical Decision Making Medical Decision Making MDM Narrative: 49-year-old transgender male to female patient with a history of personality disorder , bipolar disorder, polysubstance abuse presenting with SI. Patient states that she has a plan to ?overdose, that she has been feeling this way since [place]. She admits to using cocaine and fentanyl today. Problem: Psychiatric illness, polysubstance abuse History: Per patient I have considered the following differential diagnoses: SI, HI, decompensated psychiatric illness, drug/alcohol intoxication Plan: Patient will be referred, screening labs including ethanol and drug screen we will be collected I have independently reviewed the following tests: Labs: Chronic leukocytosis, not anemic, no electrolyte abnormality, ethanol less than 10, drug screen positive for cocaine Differential Diagnosis Differential Diagnoses: The differential diagnosis associated with the presentation includes See MDM Admission/Observation Consideration of admission/observation: Escalation of care including admission/observation considered Consult Healthcare Provider Management of the patient was discussed with: [facility] Provider Care team Lab Data 03/30/25 04:11 03/30/25 04:11 Labs: Lab Results 03/30/25 03/30/25 Range/Units 04:11 09:34 WBC 12.3 H (4.8-10.8) X10*3/uL RBC 4.84 (4.20-5.50) X10*6/uL Hgb 14.8 (12.0-16.0) g/dl Hct 42.6 (37.0-47.0) % MCV 88.0 (80.0-98.0) fL MCH 30.6 (27.0-33.0) pg MCHC 34.7 (31.0-35.0) g/dl RDW 12.3 (11.0-16.0) % Plt Count 317 D (160-400) X10*3/uL MPV 9.8 (9.4-12.3) fL Immature Gran % (Auto) 0.4 (0.0-0.4) % Neut % (Auto) 72.2 (45-73) % Lymph % (Auto) 19.4 L (20-40) % Gordon % (Auto) 7.2 (2-11) % Eos % (Auto) 0.3 (0-4) % Baso % (Auto) 0.5 (0-2) % Lymph # (Auto) 2.4 (1.2-4.9) X10*3/uL Gordon # (Auto) 0.9 (0.1-1.2) X10*3/uL Eos # (Auto) 0.0 (0.0-0.4) X10*3/uL Baso # (Auto) 0.1 (0.0-0.2) X10*3/uL Abs Immat Gran (auto) 0.05 H (0.00-0.03) X10*3/uL Absolute Neuts (auto) 8.9 H (2.0-8.3) x10*3/uL Absolute Nucleated RBC 0.000 (0.0-0.012) X10*3/uL Nucleated RBC % (auto) 0.0 (0.0-0.2) /100WBC Sodium 139 (135-145) mmol/L Potassium 3.8 (3.3-5.1) mmol/L Chloride 105 (96-108) mmol/L Carbon Dioxide 22 (22-29) mmol/L Anion Gap 16 (12-20) BUN 28 H (9-16) mg/dL Creatinine 0.72 (0.5-1.4) mg/dL Estim Creat Clear Calc 106.8 Estimated GFR > 60 Random Glucose 90 (60-115) mg/dL Calcium 9.2 (8.4-10.2) mg/dL Total Bilirubin 1.2 H (0.0-1.0) mg/dL AST 28 (5-31) U/L ALT 24 (0-31) U/L Alkaline Phosphatase 83 (39-117) U/L Total Protein 7.5 (6.5-8.0) g/dL Albumin 4.3 (3.5-5.0) g/dL Urine Color Yellow Urine Appearance Clear Urine pH 5.0 (5.0-9.0) Ur Specific [place] 1.020 (1.005-1.025) Urine Protein Negative (Neg-Trace) mg/dL Urine Glucose (UA) Negative (Negative) mg/dL Urine Ketones Negative (Negative) mg/dL Urine Blood Negative (Negative) Urine Nitrite Negative (Negative) Ur Leukocyte Esterase Trace H (Negative) Urine RBC 0-2 (0-2) /HPF Urine WBC 0-5 (0-5) /HPF Ur Squamous Epith Cells 3-5 (0-2) /HPF Urine Bacteria None Seen (None Seen) Hyaline Casts 0-2 (0-2) /LPF Salicylates < 5.0 L (15-30) mg/dL Urine Opiates Screen Not Detected (Not Detect) Ur Buprenorphine Scrn Not Detected (Not Detect) ng/mL Ur Oxycodone Screen Not Detected (Not Detect) ng/mL Urine Methadone Screen Not Detected (Not Detect) ng/mL Urine Fentanyl Screen Not Detected (Not Detect) Acetaminophen < 3 (<30) mcg/mL Ur Barbiturates Screen Not Detected (Not Detect) Ur Phencyclidine Scrn Not Detected (Not Detect) Ur Amphetamines Screen Not Detected (Not Detect) U Benzodiazepines Scrn Not Detected (Not Detect) Urine Cocaine Screen POSITIVE H (Not Detect) U Marijuana (THC) Screen Not Detected (Not Detect) Ethyl Alcohol < 10 mg/dL Discharge Plan Discharge Clinical Impression: Suicidal ideation, Opiate use Patient Disposition: Home, Self-Care Instructions: Suicide Prevention (ED), Opioid Use Disorder (ED) Additional Instructions: You were seen in our Emergency Department today for treatment of a behavioral health issue. It is important after your visit that you follow up with either your behavioral health provider or a primary care doctor within 7 days.? If you have trouble finding a therapist you can reach out to [place] [phone] The [place] [facility] can be reached 7 days a week 24 hours a day.? Call [phone] to speak with someone.? Return for any worsening symptoms or concerns such as thoughts of self harm or harm to others. Please call 911 if you feel your mental health is worsening.? Prescriptions: No Action trazodone 50 mg Tablet 50 mg PO BEDTIME MRX1 PRN (Reason: Insomnia) Qty: 30 0RF hydroxyzine HCl 25 mg Tablet 25 mg PO Q6H PRN (Reason: mild anxiety) Qty: 30 0RF aripiprazole [Abilify] 5 mg Tablet 5 mg PO DAILY Qty: 30 0RF Referrals: N Crisis [Outside] Clinical Impression: Opiate use; Suicidal ideation Interventions: [place]-Suicide Risk Severity Scale Last Done: 03/30/25 04:12 Discharge Date/Time: 03/30/25 11:03 Print Language: Latvian
[2025-03-30 09:44] LABS: Appearance Urine Clear; Glucose Urine UA Negative (Negative); PH 5.0 (5.0-9.0); Specific Gravity - Urine 1.020 (1.005-1.025); UMIC TRIGGER UACC YES
[2025-03-30 09:57] LABS: Cannabinoid Screen Urine Not Detected (Not Detect)
--- NOTE | 2025-03-30 11:03 | PC.NURSE ---
patient discharged to waiting room, waiting for clothes in dryer - requesting to wait in waiting room for clothes to dry. refused narcan.
--- NOTE | 2025-03-31 08:28 | MHC.CARE ---
Pt is not currently registered in [facility] today as the system was down when Pt arrived. Pt does not meet the criteria for a higher level of care. Pt was assessed by the CARE team yesterday and also found appropriate to D/C. Pt was provided a Lyft ride to [place] yesterday to go to [facility]. It is unclear how Pt returned to the [facility]. Pt has no documented/verified history of suicide attempts and historically presents to the [facility] as well as other area ED's in the context of chronic housing instability as well as alf polysubstance use. Pt does not follow up with treatment/medication recommendations and does not benefit from inpatient psychiatric admissions. Pt denies any active plan or intent to harm self and will D/C at this time. ED provider in agreement with disposition. An MSU will be completed as Pt was assessed yesterday.
== END 2025-03-30 11:03 | disposition home or self-care (01) ==
PROVIDERS: Emergency Provider Emergency Medicine
DX: F31.9 Bipolar disorder, unspecified (principal); R45.851 Suicidal ideations; F17.210 Nicotine dependence, cigarettes, uncomplicated; F14.90 Cocaine use, unspecified, uncomplicated; Z51.81 Encounter for therapeutic drug level monitoring; Z79.899 Other long term (current) drug therapy
CPT/HCPCS: 36415; 80053; 80143; 80179; 80307; 81001; 85025; 93005; 99285; S9485

== ENCOUNTER → 2025-03-30 03:56 | Outpatient (BNV) | payer OTHER, SELFPAY | PROVIDERS: Emergency Provider Emergency Medicine; Visit Provider Internal Medicine | DX: F14.90 Cocaine use, unspecified, uncomplicated (principal) | CPT/HCPCS: 93010 ==

== ENCOUNTER 2025-03-31 02:22 | Emergency (ER) | payer OTHER, SELFPAY ==
--- OUTSIDE RECORDS SUMMARY | 2025-03-31 11:15 | XMS_ITS | Encounter Summary ---
Author Organization [facility] Address [address] [place] [address] Phone Care Team Providers Care Waterway Traffic Checker Name Role Phone Provider, No Primary Care Provider Unavailabl e Encounter Details Date Type Department Care Team (Late st Contact Info) Description 01/14/2025 External Contact EXTERNAL LOCATION [facility] [place] [phone] Rosa Clarke Provider Social History Tobacco Use Types Packs/Day [...] AM EDT Emergency Discharge Alert Powered by [id number] Patient Name: WAGNER MONTEJO : [id number] Patient Patient MR#: [id number] Source Facility: [facility] ADM-ClinicianName: UNKNOWN UNKNOWNCode: UNKNOWNAA: NPI ATT-ClinicianName: UNKNOWN UNKNOWNCode: UNKNOWNAA: AdmitDateTime: 2025-01-14 06:58:00 DischargeDateTime: 2025-01-14 10:49:00 Admit Reason Code: SI AllergenTypeIDDescSeverityCodeReactionCodeIDDate No Allergy Found DiagnosisCodeDbanning general hospital R45.851Suicidal ideations documented in this encounter Plan of Treatment Not on file documented as of this encounter Visit Diagnoses Not on filedocumented in this encounter Additional Health Concerns Infection Onset Date Last Indicated Resolved Time Respiratory Rule-Out 02/16/2025 02/16/2025 025 2:44 AM EST documented as of this encounter Care Teams Waterway Traffic Checker Relationship Specialty Start Date End Date Provider, No PCP - General 12/01/24 documented as of this encounter
--- OUTSIDE RECORDS SUMMARY | 2025-03-31 11:15 | XMS_ITS | Encounter Summary ---
Author Organization [facility] Address [address] [place] [address] Phone Care Team Providers Care Bonderizer Name Role Phone Provider, No Primary Care Provider Unavailabl e Encounter Details Date Type Department Care Team (Late st Contact Info) Description 02/09/2025 External Contact EXTERNAL LOCATION [address] [place] [phone] Vince, Rosa Provider Social History Tobacco [...] AM EST Emergency Discharge Alert Powered by [id number] Patient Name: WAGNER MONTEJO : [id number] Patient Patient MR#: [id number] Source Facility: [facility] AdmitDateTime: 2025-02-09 07:39:00 DischargeDateTime: 2025-02-09 [...] documented as of this encounter Care Teams Bonderizer Relationship Specialty Start Date End Date Provider, No PCP - General 12/01/24 documented as of this encounter
--- OUTSIDE RECORDS SUMMARY | 2025-03-31 11:15 | XMS_ITS | Clinical Summary ---
Author Organization [facility] Address [address] [place] [address] Phone Care Team Providers Care Order Processor Name Role Phone Pcp, Unknown Primary Care Provider Grace Carpenter MD Unavailable [phone] Allergies Active Allergy Reactions Criticality Noted Date [...] PM EST Hospital Encounter [facility] [address] [place] [address] Goldy Cardoza MD Devries, Stephen G, MD Discharge Disposition: Home or Self Care 03/20/2025 [facility] RISK SCORES SYSTEM GENERATED External System Generated Encounter [address] [place] [address] Unknown, Unknown, 03/16/2025 Enrollment [facility] [address] [place] [address] from Last 3 Months Immunizations Immunization Administration [...] your housing situation today? I have jimmie sing 03/13/2025 How many times have you move [...] 2021 INFLUENZA VACCINE (#1) 2024 COVID-19 VACCINE (1 - 2024-2 6 season) 2024 SMOKING Hx [...] Detected Not Detected 03/20/2025 2:20 PM EST [facility] Influenza A PCR Not Detected Not Detected 03/20/2025 2:20 PM EST [facility] Influenza B PCR Not Detected Not Detected 03/20/2025 2:20 PM EST [facility] Swab (Nasopharynx, Bilateral) Non-Blood Collection / Unknown 03/20/2025 1:51 PM EST 03/20/2025 1:54 PM EST us Tommy Lloyd PA-C LAB GENERAL ORDERABLES Final Result Performing Organization Address [facility]/ZIP Co de Phone Number [address] [address] * Symptomatic Respiratory Virus Testing Panel (ED/IP) (03/20/2025 1:51 PM EST) [facility] SARS Comment 03/20/2025 2:01 PM EST [facility] Comment:This test automatica lly orders a COVID-19 PCR and may add Flu, RSV, or other viral tests based on patient clinical factors and site protocols. Results will appear below and separately in chart review when available. Swab (Nasopharynx, Bilateral) Non-Blood Collection / Unknown 03/20/2025 1:51 PM EST 03/20/2025 1:54 PM EST us Tommy Lloyd PA-C LAB GENERAL ORDERABLES Final Result Performing Organization Address [facility] Co de Phone Number [address] [address] * Ethanol, Blood (03/20/2025 7:51 AM EST) Only the most recent of2 resultswithin the time period is included. [facility] Ethanol <10 Negative; <11 mg/dL 03/20/2025 8:25 AM EST [facility] Blood (Blood) Venipuncture / Unknown 03/20/2025 7:51 AM EST 03/20/2025 7:56 AM EST us Goldy Cardoza MD LAB BLOOD BKR ORD ERABLES Final Result Performing Organization Address [facility] Co de Phone Number [address] [address] * Human Chorionic Gonadotropin (HCG), Qualitative, Blood (03/20/2025 7:51 AM EST) Only the most recent of2 resultswithin the time period is included. [facility] hCG Qualitative Negative Negative 8:47 AM EST [facility] Blood (Blood) Venipuncture / Unknown 03/20/2025 7:51 AM EST 03/20/2025 7:55 AM EST us Goldy Cardoza MD LAB BLOOD BKR ORD ERABLES Final Result [facility] [address] [place] [address] * (ABNORMAL) CBC and Differential (03/20/2025 7:51 AM EST) Only the most recent of2 resultswithin the time period is included. WBC 11.35(H) 4.00 - 11.00 K/uL 03/20/2025 7:57 AM [facility] RBC 4.56 4.00 - 5.20 M/uL 03/20/2025 7:57 AM [facility] Hemoglobin 14.1 12.0 - 16.0 g/dL 03/20/2025 7:57 AM [facility] Hematocrit 41.9 36.0 - 46.0 % 03/20/2025 7:57 AM [facility] MCV 91.9 80.0 - 100.0 fL 03/20/2025 7:57 AM [facility] MCH 30.9 27.0 - 31.0 pg 03/20/2025 7:57 AM [facility] MCHC 33.7 32.0 - 36.0 g/dL 03/20/2025 7:57 AM [facility] MPV 10.0 8.4 - 12.0 fL 03/20/2025 7:57 AM [facility] RDW-CV 12.4 11.5 - 14.5 % 03/20/2025 7:57 AM [facility] PLT 236 150 - 450 K/uL 03/20/2025 7:57 AM [facility] Neutrophils 68.5 % 03/20/2025 7:57 AM [facility] Lymphocytes 17.3 % 03/20/2025 7:57 AM [facility] Monocytes 11.5 % 03/20/2025 7:57 AM [facility] Eosinophils 1.9 % 03/20/2025 7:57 AM [facility] Basophils 0.4 % 03/20/2025 7:57 AM [facility] Imm Grans 0.4 % 03/20/2025 7:57 AM [facility] NRBC 0.0 <=0.0 /100 WBCs 03/20/2025 7:57 AM [facility] Absolute Neutrophils 7.79(H) 1.92 - 7.60 K/uL 03/20/2025 7:57 AM [facility] Absolute Lymphocytes 1.96 0.72 - 4.10 K/uL 03/20/2025 7:57 AM [facility] Absolute Monocytes 1.30(H) 0.16 - 1.10 K/uL 03/20/2025 7:57 AM [facility] Absolute Eosinophils 0.21 0.00 - 0.50 K/uL 03/20/2025 7:57 AM [facility] Absolute Basophils 0.05 0.00 - 0.15 K/uL 03/20/2025 7:57 AM [facility] Absolute Imm Grans 0.04 0.00 - 0.09 K/uL 03/20/2025 7:57 AM [facility] Absolute NRBC 0.00 <=0.00 K cells/uL 03/20/2025 7:57 AM [facility] Absolute Neutrophils 7.79(H) 1.92 - 7.60 K/uL 03/20/2025 7:57 AM [facility] Comment:Automated cell count . Manual ANC may differ if performed. Diff Type Auto 03/20/2025 7:57 AM [facility] Blood (Blood) Venipuncture / Unknown 03/20/2025 7:51 AM EST 03/20/2025 7:55 AM EST us Goldy Cardoza MD LAB BLOOD BKR ORD ERABLES Final Result [facility] [address] [place] [address] * Hepatic Panel (LFTs) (03/20/2025 7:51 AM EST) Only the most recent of2 resultswithin the time period is included. AST 18 <33 U/L 03/20/2025 8:25 AM [facility] ALT 17 <34 U/L 03/20/2025 8:25 AM [facility] Alkaline Phosphatase 82 40 - 130 U/L 03/20/2025 8:25 AM [facility] Bilirubin, Total 0.5 0.0 - 1.2 mg/dL 03/20/2025 8:25 AM [facility] Bilirubin, Direct 0.1 0.0 - 0.3 mg/dL 03/20/2025 8:25 AM [facility] Total Protein 7.1 6.4 - 8.3 g/dL 03/20/2025 8:25 AM [facility] Albumin 4.2 3.5 - 5.2 g/dL 03/20/2025 8:25 AM [facility] Globulin 2.9 1.9 - 4.1 g/dL 03/20/2025 8:25 AM [facility] Blood (Blood) Venipuncture / Unknown 03/20/2025 7:51 AM EST 03/20/2025 7:56 AM EST us Goldy Cardoza MD LAB BLOOD BKR ORD ERABLES Final Result [address] [address] * Basic Metabolic Panel (BMP) (03/20/2025 7:51 AM EST) Only the most recent of2 resultswithin the time period is included. Sodium 138 136 - 145 mmol/L 03/20/2025 8:25 AM [facility] Potassium 3.8 3.4 - 5.1 mmol/L 03/20/2025 8:25 AM [facility] Chloride 103 98 - 107 mmol/L 03/20/2025 8:25 AM [facility] CO2 27 20 - 31 mmol/L 03/20/2025 8:25 AM [facility] BUN 22 6 - 23 mg/dL 03/20/2025 8:25 AM [facility] Creatinine 0.60 0.50 - 1.00 mg/dL 03/20/2025 8:25 AM [facility] Glucose 91 70 - 99 mg/dL 03/20/2025 8:25 AM [facility] Calcium 9.0 8.5 - 10.5 mg/dL 03/20/2025 8:25 AM [facility] eGFR 111 >59 mL/min/1.7 3m2 03/20/2025 8:25 AM [facility] Comment:Estimated glomerular filtration rate calculated using the CKD-EPI refit equation. Anion Gap 8 3 - 17 mmol/L 03/20/2025 8:25 AM [facility] Blood (Blood) Venipuncture / Unknown 03/20/2025 7:51 AM EST 03/20/2025 7:56 AM EST us Goldy Cardoza MD LAB BLOOD BKR ORD ERABLES Final Result [address] [address] * Urinalysis with Reflex to Urine Culture (03/20/2025 7:34 AM EST) Color Yellow Yellow 03/20/2025 9:43 PM [facility] Clarity Clear Clear 03/20/2025 9:43 PM [facility] Glucose Negative Negative 03/20/2025 9:43 PM [facility] Bilirubin Urine Negative Negative 9:43 PM [facility] Ketone Urine Negative Negative 03/20/2025 9:43 PM [facility] Specific Isabella 1.015 1.001 - 1.035 03/20/2025 9:43 PM [facility] Blood Negative Negative 03/20/2025 9:43 PM [facility] pH 7.5 5.0 - 8.0 03/20/2025 9:43 PM [facility] Protein Negative Negative 03/20/2025 9:43 PM [facility] Nitrites Negative Negative 03/20/2025 9:43 PM [facility] Leukocyte Esterase Negative Negative 03/20/2025 9:43 PM [facility] Urobilinogen Negative Negative 03/20/2025 9:43 PM [facility] Urine (Urine, Voided) Non-Blood Collection / Unknown 03/20/2025 7:34 AM EST 03/20/2025 9:42 PM EST [facility] - 03/20/2025 9:43 PM EST The time from collection to resulting exceeded 8 hours. If the specimen was collected in a container without preservative, some parameters may be affected. us Goldy Cardoza MD LAB URINE ORDERAB LES Final Result [address] [address] * (ABNORMAL) Toxicology Screen, Urine (03/20/2025 7:34 AM EST) Pathologist [facility] Amphetamines, Urine Negative Negative 03/20/2025 8:36 AM [facility] Benzodiazepin e, Urine Negative Negative 03/20/2025 8:36 AM [facility] Cocaine Metabolite, Urine Positive(A) Negative 03/20/2025 8:36 AM [facility] Opiates, Urine Negative Negative 03/20/2025 8:36 AM [facility] Oxycodone, Urine Negative Negative 03/20/2025 8:36 AM [facility] Fentanyl, Urine Negative Negative 03/20/2025 8:36 AM [facility] Creatinine, Urine 70 20 - 300 mg/dL 03/20/2025 8:36 AM [facility] Urine (Urine, Voided) Non-Blood Collection / Unknown 03/20/2025 7:34 AM EST 03/20/2025 7:37 AM [facility] - 03/20/2025 8:36 AM EST This screening [...] ORDERAB LES Final Result Performing Organization Address [facility] Co de Phone Number [address] [address] * (ABNORMAL) Lipid panel (08/02/2023 10:12 AM EDT) HDL 57 mg/dL [facility] Comment: Interpretation <40 mg/dL: Low HDL cholesterol (major risk factor for CHD) Greater than or equal to 60 mg/dL: High HDL cholesterol ( negative risk factor for CHD) HDL - cholesterol is affected by a number of factors, e.g. smoking, excerise, hormones, sex and age. CHOLESTEROL 176 0 - 240 mg/dL [facility] TRIGLYCERIDES 88 30 - 160 mg/dL [facility] LDL 101 50 - 129 mg/dL [facility] Comment: LDL levels in terms of risk for coronary heart disease: <100 mg/dL: Optimal 100-129 mg/dL: Near or above optimal 130-159 mg/dL: Borderline high 160-189 mg/dL: High >190 mg/dL: Very High CARDIAC RISK RATIO 3.1(L) 3.3 - 4.4 C [facility] Blood 08/02/2023 10:1 2 AM EDT 08/02/2023 10:27 AM EDT Goldy Ventura MD LAB BLOOD BKR ORDERABLES F inal Result Performing Organization Address [facility] Co de Phone Number [address] [address] from Last 3 Months or Most Recently Relevant to Health Maintenance Additional Health Concerns Infection Onset Date Last Indicated Resp-Risk 03/20/2025 03/20/2025 Insurance [facility] [place] [address] [place] [address] [place] [address] [place] [address] [place] [address] [place] [address] [place] [address] [place] [address] [place] [address] [place] [address] [place], [place] [address] [place] [address] [address] ACO [facility] ACO [facility] ACO ACO ACO Advance Directives For more information, please contact: [phone] (9AM - 5PM [facility], Sunday-Sunday) * Full Code (Latest Code [...] 5:28 PM 04/10/2018 1:54 PM Care Teams Order Processor Relationship Specialty Start Date End Date Pcp, Unknown PCP - General 10/08/22 Grace Kahn MD [address] [place] [address], [address] [place] [address] [email or web address] Insurance Assigned Provider 02/14/25 Additional Source Comments The information contained in this document represents components of the legal health record. It is not the complete legal health record.[facility]
--- OUTSIDE RECORDS SUMMARY | 2025-03-31 11:15 | XMS_ITS ---
Author Organization [facility] Address [address] [place] [address] Phone Care Team Providers Care Sap Mobility Architect Name Role Phone Pcp, Unknown Primary Care Provider Grace Carpenter MD Unavailable [phone] Post Discharge Status:Declined (Declined) Start date:03/16/2025 End date:03/27/2025 Decline reason:Ineligible - Does not meet criteria Related social drivers of health:Child or Family Care, Education, Food, Unemployment, SNAP/WIC Continued Care and Services Coordination
--- OUTSIDE RECORDS SUMMARY | 2025-03-31 11:15 | XMS_ITS | Clinical Summary ---
Author Organization [facility] Prior to 08/30/24 Address [address] [place] [address] Care Team Providers Care Dehydrogenation Operator Head Name Role Phone Unavailable Primary Care Provider [...] Advance Directives For more information, please contact: [phone] Documents on File Type Date Recorded Patient Debubblizer Expl anation Advance Directive and Living Will [...]
--- OUTSIDE RECORDS SUMMARY | 2025-03-31 11:15 | XMS_ITS | Encounter Summary ---
Author Organization [facility] Address [address] [place] [address] Phone Care Team Providers Care Environmental Projects Advisor Name Role Phone Provider, No Primary Care Provider Unavailabl e Encounter Details Date Type Department Care Team (Late st Contact Info) Description 09/17/2024 External Contact EXTERNAL LOCATION [address] [place] [address] Rosa Clarke Provider Social History [...] AM EDT Emergency Discharge Alert Powered by [id number] Patient Name: WAGNER Hyman GUSTABO : [id number] Patient Patient MR#: [id number] Source Facility: [facility] ATT-ClinicianName: DAMARI REYNAGACode: [id number]: NPI AdmitDateTime: 2024-09-17 01:24:00 DischargeDateTime: 2024-09-17 10:00:00 Admit Reason Description: Detox AllergenTypeIDDescSeverityCodeReactionCodeIDDate 1903ALOE [id number] 00:00:00 1020VITAMIN E (D-ALPHA TOCOPHEROL)MlxgB0019-08-99 00:00:00 9841UYBIPCzafAxseiwytooi1325-41-32 00:00:00 0245CUYNJNXDTojDlko7994-47-18 00:00:00 DiagnosisCodeDesc Z76.5Malingerer (conscious simulation) Discharge Disposition: [...] documented as of this encounter Care Teams Environmental Projects Advisor Relationship Specialty Start Date End Date Provider, No PCP - General 12/01/24 documented as of this encounter
--- OUTSIDE RECORDS SUMMARY | 2025-03-31 11:15 | XMS_ITS | Encounter Summary ---
Author Organization [facility] Address [address] [place] [address] Phone Care Team Providers Care Real Estate Transaction Coordinator Name Role Phone Provider, No Primary Care Provider Unavailabl e Encounter Details Date Type Department Care Team (Late st Contact Info) Description 02/12/2025 External Contact EXTERNAL LOCATION [address] [place] [address] Vince, Rosa Provider Social History [...] AM EST Emergency Discharge Alert Powered by [id number] Patient Name: WAGNER MONTEJO : [id number] Patient Patient MR#: [id number] Source Facility: [facility] ATT-ClinicianName: SHAKIR ISAACSCode: [id number]: AdmitDateTime: 2025-02-12 02:15:00 DischargeDateTime: 2025-02-12 08:17:00 Admit Reason Code: Suicidal AllergenTypeIDDescSeverityCodeReactionCodeIDDate No Allergy Found DiagnosisCodeD[facility] R45.851Suicidal ideations documented in this encounter Plan of Treatment Not on file documented as of this encounter Visit Diagnoses Not on filedocumented in this encounter Additional Health Concerns Infection Onset Date Last Indicated Resolved Time Respiratory Rule-Out 02/16/2025 02/16/2025 025 2:44 AM EST documented as of this encounter Care Teams Real Estate Transaction Coordinator Relationship Specialty Start Date End Date Provider, No PCP - General 12/01/24 documented as of this encounter
--- OUTSIDE RECORDS SUMMARY | 2025-03-31 11:15 | XMS_ITS | Encounter Summary ---
Author Organization [facility] Address [address] [place] [address] Phone Care Team Providers Care Metal Molder Name Role Phone Provider, No Primary Care Provider Unavailabl e Encounter Details Date Type Department Care Team (Late st Contact Info) Description 01/13/2025 External Contact EXTERNAL LOCATION [address] [place] [address] Rosa Clarke Provider Social History [...] AM EDT Emergency Discharge Alert Powered by [email or web address] Patient Name: WAGNER MONTEJO : [id number] Patient Patient MR#: [id number] Source Facility: [facility] ADM-ClinicianName: UNKNOWN UNKNOWNCode: UNKNOWNAA: NPI ATT-ClinicianName: DANIELA MANNINGCode: [id number]: AdmitDateTime: 2025-01-13 00:35:00 DischargeDateTime: 2025-01-13 11:12:00 Admit Reason Code: suicidal ideations AllergenTypeIDDescSeverityCodeReactionCodeIDDate No Allergy Found DiagnosisCodeD[facility] R45.851Suicidal ideations documented in this encounter Plan of Treatment Not on file documented as of this encounter Visit Diagnoses Not on filedocumented in this encounter Additional Health Concerns Infection Onset Date Last Indicated Resolved Time Respiratory Rule-Out 02/16/2025 02/16/2025 025 2:44 AM EST documented as of this encounter Care Teams Metal Molder Relationship Specialty Start Date End Date Provider, No PCP - General 12/01/24 documented as of this encounter
--- OUTSIDE RECORDS SUMMARY | 2025-03-31 11:15 | XMS_ITS | Encounter Summary ---
Author Organization [facility] Address [address] [place] [address] Phone Care Team Providers Care Track Dresser Name Role Phone Provider, No Primary Care Provider Unavailabl e Encounter Details Date Type Department Care Team (Late st Contact Info) Description 12/11/2024 External Contact EXTERNAL LOCATION [address] [place] [address] Rosa Clarke Provider Social History [...] AM EDT Emergency Discharge Alert Powered by [id number] Patient Name: WAGNER MONTEOJ : [id number] Patient Patient MR#: [id number] Source Facility: [facility] ADM-ClinicianName: UNKNOWN UNKNOWNCode: UNKNOWNAA: NPI ATT-ClinicianName: DAMARI REYNAGACode: [id number]: AdmitDateTime: 2024-12-11 01:25:00 DischargeDateTime: 2024-12-11 12:26:00 Admit Reason Code: Back Pain AllergenTypeIDDescSeverityCodeReactionCodeIDDate No Allergy Found DiagnosisCodeDesc R45.851Suicidal ideations F32.ADepression, unspecified documented in this encounter Plan of Treatment Not on file documented as of this encounter Visit Diagnoses Not on filedocumented in this encounter Additional Health Concerns Infection Onset Date Last Indicated Resolved Time Respiratory Rule-Out 01/10/2025 01/10/2025 7:46 PM EDT Respiratory Rule-Out 02/16/2025 02/16/2025 025 2:44 AM EST documented as of this encounter Care Teams Track Dresser Relationship Specialty Start Date End Date Provider, No PCP - General 12/01/24 documented as of this encounter
--- OUTSIDE RECORDS SUMMARY | 2025-03-31 11:15 | XMS_ITS | Clinical Summary ---
Author Organization [facility] Address [facility] [place] [address] Care Team Providers Care Picture Enlarger Name Role Phone None Primary Care Provider [...] - 199 mg/dL 08/09/2024 8:11 PM EDT [facility] Comment:Glucose Concentratio n >=200 mg/dL plus symptoms is consistent with Diabetes Mellitus. Blood Urea Nitrogen 20 8 - 20 mg/dL 08/09/2024 8:11 PM EDT [facility] Creatinine 0.76 0.70 - 1.50 mg/dL 08/09/2024 8:11 PM EDT [facility] Sodium 141 135 - 145 mMol/L 08/09/2024 8:11 PM EDT [facility] Potassium 3.9 3.5 - 5.0 mMol/L 08/09/2024 8:11 PM EDT [facility] Chloride 103 98 - 107 mMol/L 08/09/2024 8:11 PM EDT [facility] Carbon Dioxide 25 22 - 31 mMol/L 08/09/2024 8:11 PM EDT [facility] Anion Gap 13 5 - 15 mMol/L 08/09/2024 8:11 PM [facility] Calcium 9.4 8.5 - 10.5 mg/dL 08/09/2024 8:11 PM [facility] Protein, Total 6.9 6.1 - 8.0 g/dL 08/09/2024 8:11 PM [facility] Albumin 4.2 3.2 - 5.2 g/dL 08/09/2024 8:11 PM [facility] Aspartate Aminotransferase 18 <=39 unit/L 08/09/2024 8:11 PM [facility] Alanine Aminotransferase 21 0 - 55 unit/L 08/09/2024 8:11 PM [facility] Alkaline Phosphatase 86 35 - 130 unit/L 08/09/2024 8:11 PM [facility] Bilirubin, Total 0.6 <=1.3 mg/dL 08/09/2024 8:11 PM [facility] Est Glomerular Filtration Rate - Male 111 mL/min/1. 73 m 08/09/2024 8:11 PM [facility] Comment: This patient's estimated GFR was [...] 97 mL/min/1. 73 m 08/09/2024 8:11 PM [facility] Comment: This patient's estimated GFR was [...] Evans MD CHEMISTRY ORDERABLES Final R esult [facility] [address] [place] [address] from Last 3 Months or Most Recently Relevant to Health Maintenance Insurance MEDICAID [place] Care Teams Picture Enlarger Relationship Specialty Start Date End Date None None PCP - General 08/09/24
--- OUTSIDE RECORDS SUMMARY | 2025-03-31 11:15 | XMS_ITS | Clinical Summary ---
Author Organization [facility] Address [address] [place] [address] Phone Care Team Providers Care Chlorinator Operator Name Role Phone Provider, No Primary [...] (six) hours if needed for pain. 07/05/19 Active Active Problems Problem Noted Date Diagnosed Date Dental abrasion 06/17/2024 Suicidal ideation 06/16/2024 Schizophrenia ([facility]) 06/16/2024 Cocaine abuse 10/10/2022 Resolved Problems Problem Noted Date Diagnosed Date Resolved Date Trauma and stressor-related disorder 08/02/2023 05/07/2024 Suicidal ideations 05/29/2022 Major depression, recurrent 10/11/2021 05/07/2024 Substance induced mood disorder ([facility]) 06/11/1905/07/2024 Affective psychosis, bipolar ([facility]) 01/03/2019 05/07/2024 Encounters Date Type Department Care Team Description 02/24/2025 10:47 AM EST - 02/24/2025 11:55 AM [facility] ADULT EMERGENCY DEPARTMENT [address] [place] [address] Ariane Marcus MD Depression, unspecified depression type (Primary Dx) Discharge Disposition: DISCHARGED TO HOME/ASSISTED LIVING/SELF CARE (ROUTINE DISCHARGE) 02/24/2025 Travel 02/21/2025 10:37 PM EST - 02/22/2025 5:55 AM [facility] ADULT EMERGENCY DEPARTMENT [address] [place] [address] Reshma Hernandez MD Unhappiness (Primary Dx) Discharge Disposition: DISCHARGED TO HOME/ASSISTED LIVING/SELF CARE (ROUTINE DISCHARGE) 02/21/2025 Travel 02/17/2025 2:17 PM EST - 02/17/2025 3:08 PM [facility] ADULT EMERGENCY DEPARTMENT [address] [place] [address] Sherita Fontana DO Paronychia of finger of right hand (Primary Dx) Discharge Disposition: DISCHARGED TO HOME/ASSISTED LIVING/SELF CARE (ROUTINE DISCHARGE) 02/17/2025 Travel 02/16/2025 2:30 AM EST - 02/16/2025 11:59 PM [facility] ADULT EMERGENCY DEPARTMENT [address] [address] 02/15/2025 11:12 PM EST - 02/16/2025 9:25 AM [facility] ADULT EMERGENCY DEPARTMENT [address] [place] [address] Almita Sierra DO Asher, Shellie, MD Suicidal ideation (Primary Dx) Discharge Disposition: DISCHARGED/TRANSFER RED TO A PSYCHIATRIC HOSPITAL OR PSYCHIATRIC DISTINCT PART UNIT OF A HOSPITAL 02/12/2025 External Contact EXTERNAL LOCATION [address] [place] [address] Hixny, Default Provider 02/09/2025 External Contact EXTERNAL LOCATION [address] [place] [address] Hixny, Default Provider 02/09/2025 - 02/09/2025 2:18 AM [facility] ADULT EMERGENCY DEPARTMENT [address] [place] [address] Fred Booth MD Sadness (Primary Dx); Dental infection Discharge Disposition: DISCHARGED TO HOME/ASSISTED LIVING/SELF CARE (ROUTINE DISCHARGE) 02/08/2025 7:40 AM EST - 02/08/2025 12:30 PM [facility] ADULT EMERGENCY DEPARTMENT [address] [place] [address] Goldy Logan MD Stimulant use disorder (Primary Dx); Behavioral and emotional disorders with onset usually occurring in childhood and adolescence Discharge Disposition: DISCHARGED TO HOME/ASSISTED LIVING/SELF CARE (ROUTINE DISCHARGE) 02/08/2025 Travel 02/06/2025 10:49 AM EST - 02/06/2025 11:52 AM [facility] ADULT EMERGENCY DEPARTMENT [address] [place] [address] Jerry Pompa MD Pain, dental (Primary Dx) Discharge Disposition: DISCHARGED TO HOME/ASSISTED LIVING/SELF CARE (ROUTINE DISCHARGE) 01/23/2025 11:29 PM EDT - 01/26/2025 12:30 PM EDT [facility] ADULT EMERGENCY DEPARTMENT [address] [place] [address] Almita Sierra DO Cordi, Heidi, MD Pinto, Dorcas, MD Gillespie, Geoffry, MD Waxman, Michael, MD Bracey, Alexander, MD Brodie, Amy Londono MD Cocaine use disorder, severe ([facility]) (Primary Dx); Substance use disorder Discharge Disposition: DISCHARGED TO HOME/ASSISTED LIVING/SELF CARE (ROUTINE DISCHARGE) 01/23/2025 Travel 01/14/2025 External Contact EXTERNAL LOCATION [address] [place] [address] Hixny, Default Provider 01/13/2025 External Contact EXTERNAL LOCATION [address] [place] [address] Hixny, Default Provider 01/12/2025 Travel 01/10/2025 4:50 AM EDT - 01/12/2025 11:50 AM EDT [facility] ADULT EMERGENCY DEPARTMENT [address] [place] [address] Mansi Wills MD Fordahl, Elizabeth, DO Aly, Iman, MD Palmieri, Timothy, MD Snyder, Howard, MD Chow, Yvonne, MD Hogan, Alannah Maxwell MD Suicidal ideations (Primary Dx) Discharge Disposition: DISCHARGED TO HOME/ASSISTED LIVING/SELF CARE (ROUTINE DISCHARGE) 01/04/2025 4:19 AM EDT - 01/04/2025 10:10 AM EDT [facility] ADULT EMERGENCY DEPARTMENT [address] [place] [address] Denisha Ribeiro MD Vines, Spenser, DO Suicidal [...] MUSE Atrial Rate 61 BPM GE MUSE ND Interval 174 ms GE MUSE QRS DURATION 110 ms GE MUSE QT Interval 444 ms GE MUSE QTC CALCULATION (BAZETT) 446 ms GE MUSE P [place] 83 degrees GE MUSE R [place] 77 degrees GE MUSE T Wave [place] 67 degrees GE MUSE 02/16/2025 2:29 AM EST 02/17/2025 9:56 AM EST Impressions GE MUSE - 02/17/2025 9:56 AM EST NORMAL SINUS RHYTHM POSSIBLE LEFT ATRIAL ENLARGEMENT MINIMAL VOLTAGE CRITERIA FOR LVH, MAY BE NORMAL VARIANT ( Hedley product ) BORDERLINE ECG Confirmed by Ricardo [...] 19 Negative Negative, Invalid 02/16/2025 2:44 AM [facility] Comment:The [employer] [facility], [employer]. ID NOW COVID-19 was designated to detect the causative agent of COVID-19. Tuee was granted Emergency Use Authorization (EUA) from the FDA to distribute this test kit. Negative results do not preclude SARS-CoV-2 infection and should not be used as the sole basis for patient management decisions. Swab Both anterior nares / Unknown 02/16/2025 2:24 AM EST 02/16/2025 2:44 AM EST [facility] - 02/16/2025 2:44 AM EST Performed at:[address] [place] [address] Almita Sierra DO LAB POINT OF CARE T EST DOCKED DEVICE UNSOLICITED RESULTS Final Result Performing Organization Address [facility] Co de Phone Number [facility] [address] [place] [address], * (ABNORMAL) Drug Screen Panel, Urine (02/16/2025 2:11 AM EST) Only the most recent of2 resultswithin the time period is included. Amphetamines, Urine Negative Negative 02/16/2025 3:04 AM [facility] Comment: I-Negative THRESHOLD 500 NG/ML Barbiturates, Urine Negative Negative 02/16/2025 3:04 AM [facility] Comment: I-Negative THRESHOLD 200 NG/ML Cocaine Metabolite, Urine Positive(A) Negative 02/16/2025 3:04 AM [facility] Comment: I-Positive THRESHOLD 150 NG/ML PRESUMPTIVE POSITIVE BY SCREENING METHOD. THIS RESULT HAS NOT BEEN CONFIRMED BY A CONFIRMATORY TECHNIQUE. Opiates, Urine Negative Negative 02/16/2025 3:04 AM [facility] Comment: I-Negative THRESHOLD 200 NG/ML Benzodiazepines, Urine Negative Negative 02/16/2025 3:04 AM [facility] Comment: I-Negative THRESHOLD 200 NG/ML Methadone, Urine Negative Negative 02/17/20 3:04 AM [facility] Comment: I-Negative THRESHOLD 300 NG/ML Phencyclidine (PCP), Urine Negative Negative 02/16/2025 3:04 AM [facility] Comment: I-Negative THRESHOLD 25 NG/ML Cannabinoids, Urine Negative Negative 02/16/2025 3:04 AM [facility] Comment: I-Negative THRESHOLD 50 NG/ML Urine Urine specimen obtained by clean catch procedure / Unknown Non-blood Collection / Unknown 02/16/2025 2:11 AM EST 02/16/2025 2:25 AM EST us Trevor ZIMMERMAN LAB URINE ORDERABLES Final Result [facility] [address] [place] [id number], * Urinalysis With Reflex To Urine Culture (02/16/2025 2:11 AM EST) Only the most recent of2 resultswithin the time period is included. Color Yellow Yellow, Dark Yellow 02/16/2025 2:33 AM [facility] Clarity Clear Clear 02/16/2025 2:33 AM [facility] Leukocytes Negative Negative 02/16/2025 2:33 AM [facility] Nitrite Negative Negative 02/16/2025 2:33 AM [facility] Blood Negative Negative, NEG 02/16/2025 2:33 AM [facility] Glucose Negative Negative 02/16/2025 2:33 AM [facility] Ketones Negative Negative 02/16/2025 2:33 AM [facility] pH 6.0 5.0 - 8.0 pH 02/16/2025 2:33 AM [facility] Specific [place], UA 1.023 1.002 - 1.029 02/16/2025 2:33 AM [facility] Bilirubin Negative Negative, NEG 02/16/2025 2:33 AM [facility] Urobilinogen 0.2 0.2, 1.0 mg/dL 02/16/2025 2:33 AM [facility] Protein Negative Negative 02/16/2025 2:33 AM [facility] Urine Urine specimen obtained by clean catch procedure / Unknown Non-blood Collection / Unknown 02/16/2025 2:11 AM EST 02/16/2025 2:25 AM EST us Trevor ZIMMERMAN LAB URINE ORDERABLES Final Result [facility] [address] [place] [id number], [place] * (ABNORMAL) Automated Differential (02/16/2025 2:08 AM EST) Only the most recent of2 resultswithin the time period is included. Neutrophils % 51.5 41.0 - 67.0 % 02/16/2025 3:08 AM [facility] Lymphocytes % 33.4 28.0 - 42.0 % 02/16/2025 3:08 AM [facility] Monocytes % 10.2(H) 4.0 - 9.0 % 02/16/2025 3:08 AM [facility] Eosinophils % 3.8 0.0 - 5.0 % 02/16/2025 3:08 AM [facility] Basophils % 0.8 0.0 - 1.0 % 02/16/2025 3:08 AM [facility] Immature Granulocytes % 0.3 0.0 - 1.0 % 02/16/2025 3:08 AM [facility] Absolute Neutrophils 5.12 1.60 - 6.20 10*3/uL 02/16/2025 3:08 AM [facility] Absolute Lymphocytes 3.33 1.10 - 3.90 10*3/uL 02/16/2025 3:08 AM [facility] Absolute Monocytes 1.02(H) 0.20 - 0.80 10*3/uL 02/16/2025 3:08 AM [facility] Absolute Eosinophils 0.38 0.00 - 0.50 10*3/uL 02/16/2025 3:08 AM [facility] Absolute Basophils 0.08 0.00 - 0.10 10*3/uL 02/16/2025 3:08 AM [facility] Absolute Immature Granulocytes 0.03 0.00 - 0.10 10*3/uL 02/16/2025 3:08 AM [facility] Blood Venous blood / Unknown Venipuncture / Unknown 02/16/2025 2:08 AM EST 02/16/2025 2:27 AM EST us Trevor ZIMMERMAN LAB BLOOD ORDERABLES Final Result [facility] [address] [place] [address], [place] * (ABNORMAL) Complete Blood Count (02/16/2025 2:08 AM EST) Only the most recent of2 resultswithin the time period is included. WBC 10.0(H) 4.0 - 9.3 10*3/uL 02/16/2025 3:08 AM [facility] Hemoglobin 13.9 11.0 - 16.7 g/dL 02/16/2025 3:08 AM [facility] Hematocrit 40.6 33.0 - 49.0 % 02/16/2025 3:08 AM [facility] RBC 4.56 4.00 - 5.70 10*6/uL 02/16/2025 3:08 AM [facility] MCV 89.0 82.3 - 93.2 fL 02/16/2025 3:08 AM [facility] MCH 30.5 27.5 - 32.2 pg 02/16/2025 3:08 AM [facility] MCHC 34.2 32.5 - 35.5 g/dL 02/16/2025 3:08 AM [facility] RDW 12.3 12.0 - 15.0 % 02/16/2025 3:08 AM [facility] Platelet Count 298 130 - 350 10*3/uL 02/16/2025 3:08 AM [facility] MPV 10.0 7.5 - 10.7 fL 02/16/2025 3:08 AM [facility] NRBC % 0.0 <=0.0 % 02/16/2025 3:08 AM [facility] Absolute NRBC 0.00 <=0.00 10*3/uL 02/16/2025 3:08 AM [facility] Blood Venous blood / Unknown Venipuncture / Unknown 02/16/2025 2:08 AM EST 02/16/2025 2:27 AM EST us [employer] PA LAB BLOOD ORDERABLES Final Result Performing Organization Address [facility] Co de Phone Number [facility] [address] [place] [address], [place] * Ethanol (02/16/2025 2:08 AM EST) Only the most recent of2 resultswithin the time period is included. Ethanol <10 <=10 mg/dL 02/16/2025 3:35 AM [facility] Comment: I-Result < dynamic range M-Verified value by repeat analysis > = 50 mg/dl (legally impaired) >= 80 mg/dl (legally intoxicated) Blood Venous blood / Unknown Venipuncture / Unknown 02/16/2025 2:08 AM EST 02/16/2025 2:26 AM EST us Trevor L Elizabeth PA LAB BLOOD ORDERABLES Final Result [facility] [address] [place] [address], [place] * (ABNORMAL) Acetaminophen Level (02/16/2025 2:08 AM EST) Only the most recent of2 resultswithin the time period is included. Acetaminophen 0.3(L) Therapeutic Range: 10-30 ug/mL ug/mL 02/16/2025 3:35 AM EST [facility] Comment: Toxic: Greater than 150 ug/mL at 4 hours after ingestion or half-life greater than 4 hours. Blood Venous blood / Unknown Venipuncture / Unknown 02/16/2025 2:08 AM EST 02/16/2025 2:26 AM EST Trevor Golden Elizabeth PA LAB BLOOD ORDERABLES Final Result Performing Organization Address [facility] de Phone Number [facility] [address] [place] [address], [place] * Salicylate (02/16/2025 2:08 AM EST) Only the most recent of2 resultswithin the time period is included. Salicylate <1.5 Therapeutic Range: 2-30 mg/dL mg/dL 02/16/2025 3:35 AM EST [facility] Comment: I-Result < dynamic range M-Verified value by repeat analysis Therapeutic: Analgesia: Up to 20 mg/dl Antipyresis: Up to 20 mg/dl Anti-inflammatory: Up to 30 mg/dl Toxic: >30.0 mg/dl Blood Venous blood / Unknown Venipuncture / Unknown 02/16/2025 2:08 AM EST 02/16/2025 2:26 AM EST [employer] LAB BLOOD ORDERABLES Final Result Performing Organization Address [facility]/ZIP Co de Phone Number [facility] [address] [place] [address], [place] * (ABNORMAL) Comprehensive Metabolic Panel (02/16/2025 2:08 AM EST) Only the most recent of2 resultswithin the time period is included. Sodium 144 135 - 145 mmol/L 02/16/2025 3:13 AM [facility] Potassium 3.4 3.4 - 5.2 mmol/L 02/16/2025 3:13 AM [facility] Chloride 106 99 - 109 mmol/L 02/16/2025 3:13 AM [facility] Carbon Dioxide 31(H) 21 - 30 mmol/L 02/16/2025 3:13 AM [facility] Comment: High LDH can falsely elevate CO2 results. If elevated LDH levels are clinically suspected, interpret CO2 with caution. Blood Urea Nitrogen (BUN) 23(H) 7 - 22 mg/dL 02/16/2025 3:13 AM [facility] Creatinine 0.85 0.60 - 1.30 mg/dL 02/16/2025 3:13 AM [facility] Glucose 142(H) 65 - 99 mg/dL 02/16/2025 3:13 AM [facility] Calcium 9.0 8.6 - 10.3 mg/dL 02/16/2025 3:13 AM [facility] Anion Gap 7 5 - 15 mmol/L 02/16/2025 3:13 AM [facility] eGFR 85 >=60 mL/min/1. 73m*2 02/16/2025 3:13 AM [facility] Comment: Calculation based on the Chronic Kidney Disease Epidemiology Collaboration (CKD- EPI) equation refit without adjustment for race. *This eGRF calculation is based on the 3504-OSI-GRC creatinine equations for adults designed to estimate glomerular filtration rate (eGFR) without race adjustment factors. *This eGFR results are indexed to standard body surface area (BSA) 1.73 M(2). *eGFR results should only be used for adult patients >=18 years old. *Use of nonindexed eGFR values (mL/min) should be considered for drug dosing decisions. Total Protein 6.4 6.0 - 8.0 g/dL 02/16/2025 3:13 AM [facility] Albumin 3.9 3.5 - 5.2 g/dL 02/16/2025 3:13 AM [facility] Globulin, Total 2.5 g/dL 3:13 AM [facility] A/G Ratio 1.6 02/16/2025 3:13 AM [facility] Bilirubin, Total 0.5 0.1 - 1.2 mg/dL 02/16/2025 3:13 AM [facility] Alanine Aminotransferase (ALT) 15 7 - 52 U/L 02/16/2025 3:13 AM [facility] Aspartate Aminotransferase (AST) 20 5 - 45 U/L 02/16/2025 3:13 AM [facility] Alkaline Phosphatase 78 34 - 104 U/L 02/16/2025 3:13 AM [facility] Blood Venous blood / Unknown Venipuncture / Unknown 02/16/2025 2:08 AM EST 02/16/2025 2:26 AM EST Trevor ZIMMERMAN LAB BLOOD ORDERABLES Final Result Performing Organization Address City/[facility] de Phone Number [facility] [address] [place] [address], * (ABNORMAL) Urine Culture - [facility] (01/10/2025 7:23 PM EDT) Urine Culture 10,000 CFU/mL Streptococcus mitis group(A) 01/12/2025 8:03 PM EDT [facility] Comment:Along with Urine Culture <10,000 colonies/ml. Insignificant colony count. No further workup. 01/12/2025 8:03 PM EDT [facility] Urine Urine specimen obtained by clean catch procedure / Unknown Non-blood Collection / Unknown 01/10/2025 7:23 PM EDT 01/10/2025 7:28 PM EDT Narrative [facility] - 01/12/2025 8:03 PM EDT The performance characteristics of the Microbial Identification methods used were determined by the Microbiology Laboratory at the [facility]. They have not been cleared or approved by the U.S. Food and Drug Administration. Mansi Wills MD LAB MICROBIOLOGY - GENERAL ORD ERABLES Final Result [facility] [address] [place] [address], [place] * Lipid Panel with RFLX Direct LDL - [facility] (06/22/2024 8:05 PM EDT) Cholesterol 143 mg/dL 06/22/2024 8:26 PM EDT [facility] Comment: DESIRABLE <200 mg/dL BORDER LINE 200-239 mg/dL HIGH RISK >240 mg/dL Triglycerides 72 mg/dL 06/22/2024 8:26 PM EDT [facility] Comment: DESIRABLE <150 mg/dL BORDER LINE 150-199 mg/dL HIGH RISK >200 mg/dL HDL Cholesterol 50.0 mg/dL 8:26 PM EDT [facility] Comment: DESIRABLE >65 mg/dL BORDERLINE 45-65 mg/dL HIGH RISK <45 mg/dL LDL Calculated 79 <=100 mg/dL 06/22/2024 8:26 PM EDT [facility] VLDL CHOLESTEROL 14.4 5 - 40 mg/dL 06/22/2024 8:26 PM EDT [facility] CHOL/HDL RATIO 2.9 0.0 - 5.0 06/22/2024 8:26 PM EDT [facility] Blood Venous blood / Unknown Venipuncture / Unknown 06/22/2024 8:05 PM EDT 06/22/2024 8:08 PM EDT us Felice Bonilla MD LAB BLOOD ORDERABLES Final Re sult [facility] [address] [place] [address] from Last 3 Months or Most Recently Relevant to Health Maintenance Insurance [employer] Member Subscriber Plan / Payer (Ef fective 2024-Present) Name:Ashley Anton Member ID:Not on file Relation to Subscriber:Self Name:Joyce Antonnitom Hyman Subscriber ID:Not on file Payer ID:[id number] Group ID:Not on file Type:Not on file Address: [address] [place] [address] Advance Directives For more information, please contact: [phone] (Available ) * Resuscitation Status (Latest Code Status on File) Date Activated Date Inactivated Comments 06/16/2024 3:06 PM 06/17/2024 1:03 PM Question Answer Comments If no pulse and/or not breathing: Attempt CPR If pulse and breathing present: Intubati on and care home mechanical ventilation Care Teams Chlorinator Operator Relationship Specialty Start Date End Date Provider, No PCP - General 12/01/24
== END 2025-03-31 09:05 | disposition home or self-care (01) ==
PROVIDERS: Emergency Provider Emergency Medicine
DX: F31.9 Bipolar disorder, unspecified (principal); R45.851 Suicidal ideations; F14.10 Cocaine abuse, uncomplicated; F64.0 Transsexualism; F17.210 Nicotine dependence, cigarettes, uncomplicated; F60.9 Personality disorder, unspecified; Z91.51 Personal history of suicidal behavior; Z79.899 Other long term (current) drug therapy
CPT/HCPCS: 99285